=== PATIENT | female | born 1950 | race Caucasian/White ===

== ENCOUNTER 2020-08-02 07:52 | Outpatient (REF) | payer MEDICARE, SELFPAY ==
[2020-08-02 12:00] LABS: Alanine Aminotransferase 22 U/L (0-31); Albumin Level 4.2 g/dL (3.5-5.0); Alkaline Phosphatase 126 U/L (39-117); Anion Gap 13 (12-20); Aspartate Amino Transferase 18 U/L (5-31); Bilirubin Total 0.6 mg/dL (0.0-1.0); Blood Urea Nitrogen 25 mg/dL (9-16); Calcium 9.2 mg/dL (8.4-10.2); Carbon Dioxide 31 mmol/L (22-29); Chloride 103 mmol/L (96-108); Cholesterol 193 mg/dL; Estimated Glomerular Filt Rate 53; Glucose Fasting 93 mg/dL (60-99); HDL Cholesterol 70 mg/dL; LDL Cholesterol Calculated 109 mg/dl; Potassium 3.9 mmol/l (3.3-5.1); Sodium 143 mmol/L (135-145); Total Protein 7.1 g/dL (6.5-8.0); Triglycerides 72 mg/dL
== END 2020-08-02 07:53 | disposition home or self-care (01) ==
LOC: HO.HMGCLDS 07:52
PROVIDERS: PCP Internal Medicine; Visit Provider Internal Medicine
DX: E78.5 Hyperlipidemia, unspecified (principal); I10 Essential (primary) hypertension; I48.91 Unspecified atrial fibrillation; M54.5 Low back pain; G89.29 Other chronic pain
CPT/HCPCS: 80053; 80061

== ENCOUNTER → 2020-08-11 09:52 | Outpatient (REF) | payer MEDICARE, SELFPAY ==
--- NOTE | 2020-08-11 10:00 | ECG_ITS ---
Hook-up date: 2020-08-11 10:20:00 Duration: 47:59:00 Test Indications: PAF Medications: 132665 QRS complexes 125 Ventricular ectopics which represent <1 % of total QRS comp. 41 Supraventricular ectopics which represent <1 % of total QRS comp. * Paced QRS complexs which represent % of total QRS comp. VENTRICULAR ECTOPY 125 Isolated 0 Bigeminal Cycles 0 Couplets 0 Runs 0 Beats in Runs * Beats LONGEST at * BPM at :: -- * Beats FASTEST at * BPM at :: -- SUPRAVENTRICULAR ECTOPY 29 Isolated 2 Couplets 1 Runs 8 Beats in Runs 8 Beats LONGEST at 115 BPM at 16:59:16 2020-08-11 8 Beats FASTEST at 115 BPM at 16:59:16 2020-08-11 HEART RATES 56 MIN at 02:51:57 2020-08-12 74 AVG 104 MAX at 18:57:22 2020-08-11 LONGEST RR 1.0800 secs at 03:54:49 2020-08-12 S-T LEVELS Channel 1 - 128 mm at 10:20:00 2020-08-11 - 128 mm at 10:20:00 2020-08-11 Channel 2 - 128 mm at 10:20:00 2020-08-11 - 128 mm at 10:20:00 2020-08-11 Channel 3 - 128 mm at 02:93:91 -- - 128 mm at 02:93:91 Basic rhythm Normal sinus rhythm No long pause or profound bradycardia Occasional Premature ventricular complexes No sustained Atrial fibrillation Patient did not report any symptoms in the diary Referred By: Liang Larios Overread By: SCARLETT ROBLEDO MD
== END ==
LOC: HO.CARD 09:52
PROVIDERS: PCP Internal Medicine; Visit Provider Internal Medicine
DX: I48.0 Paroxysmal atrial fibrillation (principal)
CPT/HCPCS: 93225; 93226

== ENCOUNTER → 2020-08-24 08:48 | Outpatient (BNVA) | payer MEDICARE, SELFPAY | PROVIDERS: PCP Internal Medicine; Referring Provider Internal Medicine; Visit Provider Hospitalist | DX: J44.9 Chronic obstructive pulmonary disease, unspecified (principal); J96.11 Chronic respiratory failure with hypoxia; G47.33 Obstructive sleep apnea (adult) (pediatric); Z99.89 Dependence on other enabling machines and devices; Z99.81 Dependence on supplemental oxygen | CPT/HCPCS: 94618; 99212 ==

== ENCOUNTER 2020-09-19 06:44 | Outpatient (REF) | payer MEDICARE, SELFPAY ==
[2020-09-19 07:24] LABS: Hematocrit 39.2 % (37-47); Mean Corpuscular HGB Conc 33.2 g/dl (31.0-35.0); Mean Corpuscular Hemoglobin 32.3 pg (27.0-33.0); Mean Corpuscular Volume 97.5 fL (80-98); Mean Platelet Volume 9.3 fL (9.4-12.3); Platelet Count 344 X10*3/uL (160-400); Red Blood Count 4.02 X10*6/uL (4.20-5.50); White Blood Count 6.8 X10*3/uL (4.8-10.8)
[2020-09-19 07:51] LABS: Alanine Aminotransferase 36 U/L (0-31); Albumin Level 4.1 g/dL (3.5-5.0); Alkaline Phosphatase 194 U/L (39-117); Anion Gap 15 (12-20); Aspartate Amino Transferase 25 U/L (5-31); Bilirubin Total 0.6 mg/dL (0.0-1.0); Blood Urea Nitrogen 25 mg/dL (9-16); Calcium 9.3 mg/dL (8.4-10.2); Carbon Dioxide 28 mmol/L (22-29); Chloride 101 mmol/L (96-108); Cholesterol 199 mg/dL; Estimated Glomerular Filt Rate 52; Glucose Fasting 89 mg/dL (60-99); HDL Cholesterol 76 mg/dL; LDL Cholesterol Calculated 105 mg/dl; Potassium 4.1 mmol/l (3.3-5.1); Sodium 140 mmol/L (135-145); Triglycerides 92 mg/dL
[2020-09-19 08:13] LABS: Thyroid Stimulating Hormone 1.01 uIU/mL (0.32-4.0)
== END 2020-09-19 06:45 | disposition home or self-care (01) ==
LOC: HO.LAB 06:44
PROVIDERS: Visit Provider Internal Medicine
DX: I48.0 Paroxysmal atrial fibrillation (principal); E78.5 Hyperlipidemia, unspecified; I42.9 Cardiomyopathy, unspecified; R10.9 Unspecified abdominal pain; J41.0 Simple chronic bronchitis
CPT/HCPCS: 36415; 80053; 80061; 84443; 85027

== ENCOUNTER 2020-09-25 10:19 | Outpatient (REF) | payer MEDICARE, SELFPAY ==
--- NOTE | 2020-09-25 10:20 | CT_ITS ---
EXAMINATION: CT ABDOMEN AND PELVIS WITH CONTRAST CLINICAL INFORMATION: Abdominal pain COMPARISON: Previous CT of the abdomen and pelvis May 2014 TECHNIQUE: Multidetector volumetric images were obtained from the superior aspect of the liver through the pubic symphysis following administration 85 mL of Omnipaque 350 intravenous contrast. Sagittal and coronal reformatted images were obtained on the technologist's workstation. Oral contrast: Yes This CT examination was performed using dose optimization techniques as appropriate, variously including the following: *Automated exposure control *Adjustment of mA and/or kV according to patient size (this includes techniques or standardized protocols for targeted exams where dose is matched to indication/reason for exam; i.e. extremities or head) *Use of iterative reconstruction technique DLP: 705 mGy-cm FINDINGS: LUNG BASES: The visualized lung bases are unremarkable. LIVER, GALLBLADDER, AND BILIARY TREE: The liver is normal in size, shape, and attenuation. No focal hepatic lesion or biliary ductal dilatation is present. The gallbladder has been removed. PANCREAS: Unremarkable. SPLEEN: Unremarkable. ADRENAL GLANDS: There is a nodular contour of the left adrenal gland. This is similar to previous exam. KIDNEYS AND URETERS: The left kidney is a small. There are bilateral renal cysts. The kidneys are otherwise unremarkable. BLADDER: Unremarkable. GASTROINTESTINAL TRACT: There is diverticulosis of the colon. No evidence of diverticulitis is seen. There is a small duodenal diverticulum adjacent to the head of the pancreas. The appendix is unremarkable. The stomach is unremarkable. ABDOMINAL WALL: There is an infra umbilical hernia containing fat. LYMPH NODES: Normal. VASCULAR: There is a small aneurysm of the mid abdominal aorta measuring 3 x 3.7 cm in transverse and AP dimension. This is new or increased from previous exam from 2013. PELVIC VISCERA: Unremarkable. OSSEOUS STRUCTURES: There are degenerative changes of the spine. CT/CT abdomen pelvis w con IMPRESSION: Diverticulosis of the colon. No evidence of diverticulitis. Small left kidney. Small 3 x 3.7 cm abdominal aortic aneurysm new from May 2014 exam.
[2020-09-25] MEDS: iohexoL 350 MG/ML 100 ML INFUS..BTL IV (13:00)
[2020-09-25] MEDS: Barium Sulfate Oral (Vanilla) 450 ML ORAL.SUSP 900 ML PO (13:01)
== END 2020-09-25 10:20 | disposition home or self-care (01) ==
LOC: HO.CT 10:19
PROVIDERS: PCP Internal Medicine; Visit Provider Internal Medicine
DX: R10.9 Unspecified abdominal pain (principal)
CPT/HCPCS: 74177; Q9967

== ENCOUNTER → 2020-10-17 15:41 | Outpatient (BNVA) | payer MEDICARE, SELFPAY | PROVIDERS: PCP Internal Medicine; Visit Provider Nurse Practitioner | DX: Z13.89 Encounter for screening for other disorder (principal) | CPT/HCPCS: Q3014 ==

== ENCOUNTER → 2020-10-24 12:37 | Outpatient (BNVA) | payer MEDICARE, SELFPAY | PROVIDERS: PCP Internal Medicine; Visit Provider Internal Medicine | DX: I48.0 Paroxysmal atrial fibrillation (principal); I42.8 Other cardiomyopathies; J44.9 Chronic obstructive pulmonary disease, unspecified; G47.33 Obstructive sleep apnea (adult) (pediatric); Z79.01 Long term (current) use of anticoagulants; Z79.899 Other long term (current) drug therapy; Z99.89 Dependence on other enabling machines and devices | CPT/HCPCS: Q3014 ==

== ENCOUNTER → 2020-11-15 09:43 | Outpatient (BNVA) | payer MEDICARE, SELFPAY | PROVIDERS: PCP Internal Medicine; Visit Provider Nurse Practitioner | DX: K21.9 Gastro-esophageal reflux disease without esophagitis (principal); Z79.01 Long term (current) use of anticoagulants | CPT/HCPCS: Q3014 ==

== ENCOUNTER → 2020-11-24 09:45 | Outpatient (BNVA) | payer MEDICARE, SELFPAY | PROVIDERS: PCP Internal Medicine; Visit Provider Internal Medicine | DX: I48.0 Paroxysmal atrial fibrillation (principal); Z51.81 Encounter for therapeutic drug level monitoring; Z79.01 Long term (current) use of anticoagulants | CPT/HCPCS: 99211 ==

== ENCOUNTER 2020-12-04 12:14 | Outpatient (REF) | payer MEDICARE, SELFPAY ==
--- NOTE | ~2020-12-04 | XR_ITS ---
EXAMINATION: XR KNEE AP STANDING AND LATERAL VIEW STANDING CLINICAL INFORMATION: Bilateral AP knees standing. COMPARISON: None. TECHNIQUE: AP bilateral standing view of the knees was obtained. FINDINGS: AP bilateral standing views reveal a loss of medial compartment joint space both knees. The lateral compartment joint space is maintained normal. There are no loose bodies or bony erosive changes. Weightbearing lateral view right knee reveals maintained. Patellofemoral compartment joint space. Minimal anterior superior patellar enthesophyte are seen. No joint effusion. No loose bodies. Weightbearing lateral view left knee reveals small anterior-superior patellar enthesophytes. There are no loose bodies or joint effusion. XR/XR knee standing BI IMPRESSION: Degenerative changes medial compartment both knees. No loose bodies, bony erosive changes or joint effusion seen. There are minimal anterior suprapatellar enthesophytes both knees.
[2020-12-04 13:55] LABS: Hematocrit 41.9 % (37-47); Hemoglobin 13.6 g/dl (12.0-16.0); Mean Corpuscular HGB Conc 32.5 g/dl (31.0-35.0); Mean Corpuscular Hemoglobin 31.1 pg (27.0-33.0); Mean Corpuscular Volume 95.9 fL (80-98); Mean Platelet Volume 10.9 fL (9.4-12.3); Platelet Count 277 X10*3/uL (160-400); Red Blood Count 4.37 X10*6/uL (4.20-5.50); White Blood Count 8.1 X10*3/uL (4.8-10.8)
[2020-12-04 14:01] LABS: INTERNATIONAL NORM RATIO 1.4 (0.9-1.1); Prothrombin Time 16.7 SEC (10.8-13.0)
[2020-12-04 14:07] LABS: Glucose Urine UA NEG (NEG); Leukocyte Esterase Urine NEG (NEG); Nitrite Urine NEG (NEG); Urine Blood TRACE (NEG); Urine Ketones NEG (NEG); Urine Protein NEG (NEG-TRACE)
[2020-12-04 14:08] LABS: Appearance Urine CLEAR; Color Urine STRAW
[2020-12-04 14:28] LABS: Alanine Aminotransferase 18 U/L (0-31); Albumin Level 4.4 g/dL (3.5-5.0); Alkaline Phosphatase 135 U/L (39-117); Anion Gap 17 (12-20); Aspartate Amino Transferase 18 U/L (5-31); Bilirubin Total 0.7 mg/dL (0.0-1.0); Blood Urea Nitrogen 24 mg/dL (9-16); Calcium 9.6 mg/dL (8.4-10.2); Carbon Dioxide 32 mmol/L (22-29); Chloride 98 mmol/L (96-108); Cholesterol 213 mg/dL; Estimated Glomerular Filt Rate 54; Glucose Fasting 91 mg/dL (60-99); HDL Cholesterol 84 mg/dL; LDL Cholesterol Calculated 108 mg/dl; Potassium 3.7 mmol/L (3.3-5.1); Sodium 143 mmol/L (135-145); Total Protein 7.5 g/dL (6.5-8.0); Triglycerides 107 mg/dL
[2020-12-04 14:44] LABS: Erythrocyte Sedimentation Rate 75 MM/HR (0-20)
[2020-12-04 15:08] LABS: RBC Urine 0 /HPF (0); Renal Epithelial Cells Urine 1+ /LPF; Squamous Epithelial Cell Urine 1+ /LPF
== END 2020-12-04 12:15 | disposition home or self-care (01) ==
LOC: HO.HMGCLDS 12:14
PROVIDERS: Nurse Practitioner Family; PCP Internal Medicine; Visit Provider Internal Medicine
DX: M25.50 Pain in unspecified joint (principal); I42.8 Other cardiomyopathies; E66.01 Morbid (severe) obesity due to excess calories; E78.5 Hyperlipidemia, unspecified; I48.0 Paroxysmal atrial fibrillation; J41.0 Simple chronic bronchitis; Z79.01 Long term (current) use of anticoagulants
CPT/HCPCS: 36415; 73565; 80053; 80061; 81001; 85027; 85610; 85652; 86140

== ENCOUNTER 2020-12-12 12:21 | Outpatient (REF) | payer MEDICARE, SELFPAY ==
--- NOTE | ~2020-12-12 | XR_ITS ---
EXAMINATION: XR HAND, RIGHT XR HAND, LEFT CLINICAL INFORMATION: Bilateral pain COMPARISON: Radiographs left wrist 06/24/2018, radiographs right hand 03/29/2014. TECHNIQUE: Each hand is imaged in 3 views. There are a total of 6 views. FINDINGS: Right: There is mild osteopenia. No periarticular demineralization. No destructive process. The ulnar variance is neutral. The pronator quadratus fat pad is normal. There are degenerative changes at the triscaphe joint with joint narrowing and mild subchondral sclerosis. No visible erosive change. No chondrocalcinosis. The MCP joints are unremarkable. There is borderline narrowing DIP joints without erosive change. Left: There is mild osteopenia. No periarticular demineralization. No destructive process. The ulnar variance is neutral. The pronator quadratus fat pad is unremarkable. There are borderline degenerative changes triscaphe joint with mild joint narrowing. No erosive change. No chondrocalcinosis. The MCP joints are normal. There is borderline narrowing DIP joints without erosive change. XR/XR hand RT min 3V IMPRESSION: 1. Bilateral degenerative changes triscaphe joint, greater on right. 2. Otherwise carpus and MCP joints normal. 3. Mild bilateral narrowing DIP joints. 4. No erosive changes.
--- NOTE | ~2020-12-12 | XR_ITS ---
EXAMINATION: XR HAND, RIGHT XR HAND, LEFT CLINICAL INFORMATION: Bilateral pain COMPARISON: Radiographs left wrist 06/24/2018, radiographs right hand 03/29/2014. TECHNIQUE: Each hand is imaged in 3 views. There are a total of 6 views. FINDINGS: Right: There is mild osteopenia. No periarticular demineralization. No destructive process. The ulnar variance is neutral. The pronator quadratus fat pad is normal. There are degenerative changes at the triscaphe joint with joint narrowing and mild subchondral sclerosis. No visible erosive change. No chondrocalcinosis. The MCP joints are unremarkable. There is borderline narrowing DIP joints without erosive change. Left: There is mild osteopenia. No periarticular demineralization. No destructive process. The ulnar variance is neutral. The pronator quadratus fat pad is unremarkable. There are borderline degenerative changes triscaphe joint with mild joint narrowing. No erosive change. No chondrocalcinosis. The MCP joints are normal. There is borderline narrowing DIP joints without erosive change. XR/XR hand LT min 3V IMPRESSION: 1. Bilateral degenerative changes triscaphe joint, greater on right. 2. Otherwise carpus and MCP joints normal. 3. Mild bilateral narrowing DIP joints. 4. No erosive changes.
[2020-12-12 14:07] LABS: MANUAL DIFF FLAG NO
[2020-12-12 14:11] LABS: Basophils Percent Auto 0.4 % (0-2); Eosinophils Absolute Auto 0.2 X10*3/uL (0.0-0.4); Eosinophils Percent Auto 2.4 % (0-4); Hematocrit 39.7 % (37-47); Hemoglobin 12.8 g/dl (12.0-16.0); Imm Gran Abs Auto 0.04 X10*3/uL (0.00-0.03); Imm Gran Pct Auto 0.5 % (0.0-0.4); Lymphocytes Absolute Auto 1.8 X10*3/uL (1.2-4.9); Lymphocytes Percent Auto 20.7 % (20-40); Mean Corpuscular HGB Conc 32.2 g/dl (31.0-35.0); Mean Corpuscular Hemoglobin 31.3 pg (27.0-33.0); Mean Corpuscular Volume 97.1 fL (80-98); Mean Platelet Volume 9.4 fL (9.4-12.3); Monocytes Absolute Auto 0.6 X10*3/uL (0.1-1.2); Monocytes Percent Auto 6.9 % (2-11); Neutrophils Absolute Auto 5.9 X10*3/uL (2.0-8.3); Neutrophils Percent Auto 69.1 % (45-73); Platelet Count 338 X10*3/uL (160-400); Red Blood Count 4.09 X10*6/uL (4.20-5.50); Red Cell Distribution Width 13.1 % (11.0-16.0); White Blood Count 8.5 X10*3/uL (4.8-10.8)
[2020-12-12 14:49] LABS: Alanine Aminotransferase 20 U/L (0-31); Albumin Level 4.2 g/dL (3.5-5.0); Alkaline Phosphatase 136 U/L (39-117); Anion Gap 17 (12-20); Aspartate Amino Transferase 16 U/L (5-31); Bilirubin Total 0.6 mg/dL (0.0-1.0); Blood Urea Nitrogen 21 mg/dL (9-16); C Reactive Protein 1.25 mg/dL (< or = 0.50); Calcium 9.2 mg/dL (8.4-10.2); Carbon Dioxide 30 mmol/L (22-29); Chloride 100 mmol/L (96-108); Estimated Glomerular Filt Rate 51; Glucose Random 88 mg/dL (60-115); Potassium 3.6 mmol/L (3.3-5.1); Sodium 143 mmol/L (135-145)
[2020-12-12 14:58] LABS: Erythrocyte Sedimentation Rate 78 MM/HR (0-20); Rheumatoid Factor < 15.0 IU/mL (<15.0)
[2020-12-13 10:47] LABS: Antibody to SS-A Antigen <1.0 NEG AI (<1.0 NEG); Antibody to SS-B Antigen <1.0 NEG AI (<1.0 NEG)
[2020-12-13 11:37] LABS: Cyclic Citrullinated Peptide <16 UNITS
[2020-12-13 13:11] LABS: Anti Nuclear Antibody Screen NEGATIVE (NEGATIVE); IgA 438 mg/dL (70-320); IgG 894 mg/dL (600-1540); IgM 96 mg/dL (50-300)
[2020-12-13 21:27] LABS: Prot Elec - Albumin 3.8 g/dL (3.8-4.8); Prot Elec - Alpha1 0.4 g/dL (0.2-0.3); Prot Elec - Alpha2 0.9 g/dL (0.5-0.9); Prot Elec - Beta 1 0.5 g/dL (0.4-0.6); Prot Elec - Beta 2 0.5 g/dL (0.2-0.5); Prot Elec - Gamma 0.9 g/dL (0.8-1.7)
[2020-12-15 21:18] LABS: Vitamin D 25-OH, D2 9 ng/mL; Vitamin D 25-OH, D3 23 ng/mL; Vitamin D 25-OH, Total 32 ng/mL (30-100)
== END 2020-12-12 12:22 | disposition home or self-care (01) ==
LOC: HO.LAB 12:21
PROVIDERS: PCP Internal Medicine; Visit Provider Student in an Organized Health Care Education/Training Program
DX: M25.50 Pain in unspecified joint (principal); R79.82 Elevated C-reactive protein (CRP); I48.91 Unspecified atrial fibrillation; I42.9 Cardiomyopathy, unspecified
CPT/HCPCS: 36415; 73130; 80053; 82306; 82784; 84155; 84165; 85025; 85652; 86038; 86039; 86140; 86200; 86235; 86334; 86431; 99202

== ENCOUNTER → 2020-12-26 10:30 | Outpatient (BNVA) | payer MEDICARE, SELFPAY | PROVIDERS: PCP Internal Medicine; Visit Provider Student in an Organized Health Care Education/Training Program | DX: M35.3 Polymyalgia rheumatica (principal); M25.50 Pain in unspecified joint; Z79.52 Long term (current) use of systemic steroids | CPT/HCPCS: 99212 ==

== ENCOUNTER 2021-01-03 10:08 | Outpatient (REF) | payer MEDICARE, SELFPAY ==
--- NOTE | ~2021-01-03 | MM_ITS ---
EXAMINATION: BONE DENSITOMETRY CLINICAL INDICATION: Long-term, current, use of systemic steroids. COMPARISON: Baseline BD dated 07/26/2016. TECHNIQUE: Using a F2G DXA System (software version: 13.1) manufactured by [employer], dual-energy x-ray absorptiometry was performed of the lumbar spine and left hip. The images are of good technical quality. Summary results are attached. FINDINGS: AP SPINE L1-L4: Current: BMD 0.789 g/cm2, Z-score -2.7, T-score -3.3, osteoporosis, 3.8% decrease from baseline (<5% change is not significant). Baseline: BMD 0.820 g/cm2. LEFT FEMUR, NECK: Current: BMD 0.684 g/cm2, Z-score -1.5, T-score -2.5, osteoporosis. Baseline: BMD 0.745 g/cm2. LEFT FEMUR, TOTAL: Current: BMD 0.764 g/cm2, Z-score -1.2, T-score -1.9, osteopenia, 4.4% decrease from baseline (<5% change is not significant). Baseline: BMD 0.799 g/cm2. IDENTIFIED RISK FACTORS: Low calcium intake, family history (parental hip fracture), glucocorticoids (chronic), menopause. HISTORY OF FRACTURE: None listed. MEDICATIONS: None listed. MM/XR DEXA axial skeleton IMPRESSION: 1. DIAGNOSIS: Osteoporosis based on the lowest T-score value of -3.3 in the lumbar spine applying World Health Organization criteria. 2. 10-YEAR FRACTURE RISK PREDICTION, FRAX: Major osteoporotic fracture (clinical spine, forearm, hip or shoulder) 21.9%. Hip fracture 6.7%. 3. Treatment Recommendations: NOF guidelines recommend consideration for treatment in postmenopausal women and men age 50 and older presenting with the following: -A hip or vertebral (clinical or morphometric) fracture. -T-score less than or equal to -2.5 at the femoral neck or spine after appropriate evaluation to exclude secondary causes. -Low bone mass at the hip or spine and a 10-year fracture probability by FRAX of greater than or equal to 3% for hip fracture or greater than or equal to 20% for major osteoporotic fracture based on the [place] adapted WHO algorithm. 4. Other Recommendations: All treatment decisions require clinical judgment and consideration of individual patient factors, including patient preferences, comorbidities, previous drug use, risk factors not captured in the FRAX model (e.g. frailty, falls, vitamin D deficiency, increased bone turnover, interval significant decline in bone density) and possible under or overestimation of fracture risk by FRAX. Additional medical evaluation for secondary cause of low bone mineral density may be appropriate. FUTURE SCAN RECOMMENDATION: People with diagnosed cases of osteoporosis or at high risk for fracture should have regular bone mineral density tests. For patients eligible for Medicare, routine testing is allowed once every 2 years. The testing frequency can be increased to one year for patients who have rapidly progressing disease, those who are receiving or discontinuing medical therapy to restore bone mass, or have additional risk factors.
== END 2021-01-03 10:09 | disposition home or self-care (01) ==
LOC: HO.MAMMO 10:08
PROVIDERS: Visit Provider Student in an Organized Health Care Education/Training Program
DX: Z13.820 Encounter for screening for osteoporosis (principal); Z78.0 Asymptomatic menopausal state; Z79.52 Long term (current) use of systemic steroids
CPT/HCPCS: 77080

== ENCOUNTER → 2021-01-30 10:07 | Outpatient (BNVA) | payer MEDICARE, SELFPAY | PROVIDERS: Visit Provider Internal Medicine | DX: I48.0 Paroxysmal atrial fibrillation (principal); I42.8 Other cardiomyopathies; J41.0 Simple chronic bronchitis; G47.33 Obstructive sleep apnea (adult) (pediatric); J84.9 Interstitial pulmonary disease, unspecified; Z99.89 Dependence on other enabling machines and devices; Z51.81 Encounter for therapeutic drug level monitoring; Z79.899 Other long term (current) drug therapy | CPT/HCPCS: 93005; 99212 ==

== ENCOUNTER → 2021-02-06 10:18 | Outpatient (BNVA) | payer MEDICARE, SELFPAY | PROVIDERS: PCP Internal Medicine; Visit Provider Nurse Practitioner | DX: R10.9 Unspecified abdominal pain (principal); K21.9 Gastro-esophageal reflux disease without esophagitis; E66.01 Morbid (severe) obesity due to excess calories; Z68.41 Body mass index [BMI] 40.0-44.9, adult; Z71.3 Dietary counseling and surveillance | CPT/HCPCS: Q3014 ==

== ENCOUNTER 2021-02-08 10:49 | Outpatient (REF) | payer MEDICARE, SELFPAY ==
--- NOTE | ~2021-02-08 | CT_ITS ---
EXAMINATION: CT CHEST WITHOUT CONTRAST CLINICAL INFORMATION: Evaluate for interstitial lung disease COMPARISON: Previous CTA of the chest August 2019 TECHNIQUE: Multidetector volumetric CT imaging of the chest was done. Axial MIP volume rendering provided. Sagittal and coronal reformatted images were obtained. This CT examination was performed using dose optimization techniques as appropriate, variously including the following: *Automated exposure control *Adjustment of mA and/or kV according to patient size (this includes techniques or standardized protocols for targeted exams where dose is matched to indication/reason for exam; i.e. extremities or head) *Use of iterative reconstruction technique DLP: 230 mGy-cm FINDINGS: LUNGS: No evidence of interstitial lung disease. There is a scarring or chronic subsegmental atelectasis in the inferior segment of the lingula and medial segment of the right middle lobe. There is minimal linear scarring at the left lower lobe adjacent to the left pleural fissures axial image 78 series 11 that is stable. The lungs are otherwise clear. There is no evidence of air-trapping. MEDIASTINUM: Heart is upper normal in size. There is coronary artery calcification. There is calcification of the thoracic aorta. There is a small aneurysm of the anterior wall of the ascending thoracic aorta measuring 4 x 4.3 cm. This is best appreciated sagittal reconstructed image 55 probably not appreciably changed from 2019 exam. The aortic arch and descending thoracic aorta are upper normal in size.. There are no enlarged hilar or mediastinal lymph nodes. The visualized thyroid gland is unremarkable. PLEURA: There is no pleural effusion. No pleural mass or thickening. AXILLA: No lymphadenopathy. UPPER ABDOMEN: The gallbladder has been removed. There may be a duodenal diverticulum adjacent to the head of the pancreas. The left kidney appears smaller than the right. There is a 1.7 cm left renal cyst. There is a focal dilatation of the visualized infrarenal abdominal aorta. This measures 3 cm on most inferior images and is incompletely imaged. OSSEOUS STRUCTURES: There are degenerative changes of the spine. CT/CT chest wo con IMPRESSION: No evidence of interstitial lung disease. 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 Ascending thoracic aorta measures maximum 4.3 cm in AP dimension and is probably not appreciably changed from 2019 CTA. Dilatation of the visualized infrarenal abdominal aorta measuring at least 3 cm. This is incompletely imaged. Follow-up abdominal aortic ultrasound should be considered.
[2021-02-08 12:28] LABS: C Reactive Protein 0.72 mg/dL (< or = 0.50)
[2021-02-08 12:33] LABS: TSH reflex Free T4 0.27 uIU/mL (0.32-4.0)
[2021-02-08 12:49] LABS: Erythrocyte Sedimentation Rate 44 MM/HR (0-20)
[2021-02-08 13:05] LABS: Free T4 (Free Thyroxine) 1.28 ng/dL (0.71-1.85)
== END 2021-02-08 10:50 | disposition home or self-care (01) ==
LOC: HO.CT 10:49
PROVIDERS: Student in an Organized Health Care Education/Training Program; PCP Internal Medicine; Visit Provider Internal Medicine
DX: J84.9 Interstitial pulmonary disease, unspecified (principal); M35.3 Polymyalgia rheumatica; I48.0 Paroxysmal atrial fibrillation; Z79.899 Other long term (current) drug therapy
CPT/HCPCS: 36415; 71250; 84439; 84443; 85652; 86140

== ENCOUNTER 2021-02-20 08:53 | Outpatient (REF) | payer MEDICARE, SELFPAY ==
--- NOTE | ~2021-02-20 | US_ITS ---
EXAMINATION: US ABDOMINAL AORTA CLINICAL INFORMATION: This is a 70-year-old female with abdominal aortic aneurysm. COMPARISON: Comparison is made to a CT scan of the abdomen dated 09/25/2020 which measured the abdominal aortic aneurysm at 3.0 x 3.7 cm. TECHNIQUE: Grayscale, color Doppler and spectral Doppler evaluation of the abdominal aorta. FINDINGS: There is aneurysmal dilatation of the mid abdominal aorta measuring 3.8 x 4.1 cm. The measurements of the aorta in maximum AP and transverse dimensions respectively are as follows: PROXIMAL: 3.0 x 3.1 cm. MID: 3.8 x 4.1 cm. DISTAL: 2.3 x 2.7 cm. The velocity measures 49 cm/s. The measurements of the common iliac arteries in maximum AP dimension are as follows: RIGHT COMMON ILIAC ARTERY: 1.5 x 1.7 cm. LEFT COMMON ILIAC ARTERY: 1.4 x 1.6 cm. US/US abdominal aortic aneurysm IMPRESSION: 1. There is a 3.8 x 4.1 cm abdominal aortic aneurysm. A direct comparison to the previous CT scan is difficult because of the differences in the technique. However, the current ultrasound suggests that the aneurysm has increased in size.
== END 2021-02-20 08:54 | disposition home or self-care (01) ==
LOC: HO.HMGCX 08:53
PROVIDERS: PCP Internal Medicine; Visit Provider Internal Medicine
DX: I71.4 Abdominal aortic aneurysm, without rupture (principal)
CPT/HCPCS: 76706

== ENCOUNTER → 2021-02-27 15:03 | Outpatient (BNVA) | payer MEDICARE, SELFPAY | PROVIDERS: Visit Provider Student in an Organized Health Care Education/Training Program | DX: M35.3 Polymyalgia rheumatica (principal); M81.0 Age-related osteoporosis without current pathological fracture; Z79.52 Long term (current) use of systemic steroids | CPT/HCPCS: 96372; 99212; J0897 ==

== ENCOUNTER → 2021-03-02 09:53 | Outpatient (BNVA) | payer MEDICARE, SELFPAY | PROVIDERS: PCP Internal Medicine; Visit Provider Student in an Organized Health Care Education/Training Program ==

== ENCOUNTER 2021-04-03 10:05 | Outpatient (REF) | payer MEDICARE, SELFPAY ==
[2021-04-03 13:10] LABS: Erythrocyte Sedimentation Rate 45 MM/HR (0-20)
[2021-04-03 13:38] LABS: Alanine Aminotransferase 22 U/L (0-31); Alkaline Phosphatase 104 U/L (39-117); Anion Gap 15 (12-20); Aspartate Amino Transferase 17 U/L (5-31); Bilirubin Total 0.8 mg/dL (0.0-1.0); Blood Urea Nitrogen 28 mg/dL (9-16); C Reactive Protein 1.38 mg/dL (< or = 0.50); Calcium 9.7 mg/dL (8.4-10.2); Carbon Dioxide 30 mmol/L (22-29); Chloride 102 mmol/L (96-108); Estimated Glomerular Filt Rate 47; Glucose Random 117 mg/dL (60-115); Potassium 3.4 mmol/L (3.3-5.1); Sodium 144 mmol/L (135-145); Total Protein 6.6 g/dL (6.5-8.0)
[2021-04-07 13:22] LABS: Vitamin D 25-OH, D2 10 ng/mL; Vitamin D 25-OH, D3 20 ng/mL; Vitamin D 25-OH, Total 30 ng/mL (30-100)
== END 2021-04-03 10:06 | disposition home or self-care (01) ==
LOC: HO.HMGCLDS 10:05
PROVIDERS: Student in an Organized Health Care Education/Training Program; PCP Internal Medicine; Visit Provider Physician Assistant Medical
DX: M81.0 Age-related osteoporosis without current pathological fracture (principal); M35.3 Polymyalgia rheumatica
CPT/HCPCS: 36415; 80053; 82306; 85652; 86140

== ENCOUNTER → 2021-04-18 08:53 | Outpatient (BNVA) | payer MEDICARE, SELFPAY | PROVIDERS: PCP Internal Medicine; Visit Provider Hospitalist | DX: G47.33 Obstructive sleep apnea (adult) (pediatric) (principal); J41.0 Simple chronic bronchitis; J96.11 Chronic respiratory failure with hypoxia; Z79.52 Long term (current) use of systemic steroids; Z99.89 Dependence on other enabling machines and devices | CPT/HCPCS: 99212 ==

== ENCOUNTER 2021-04-22 07:45 | Emergency (ER) | payer MEDICARE, SELFPAY ==
--- NOTE | ~2021-04-22 | XR_ITS ---
EXAMINATION: CR CHEST CLINICAL INFORMATION: Chest pain. Shortness of breath. COMPARISON: Chest x-ray dated 09/21/2019. CT scan of the chest dated 02/08/2021. TECHNIQUE: 2 views of the chest were obtained. FINDINGS: EKG leads overlie the chest. The cardiomediastinal silhouette is enlarged. There is a anterior bulge in the ascending aorta, corresponding to the focal aneurysmal dilatation of the ascending aorta seen on the CT scan. Calcification and tortuosity of the aorta is seen. Lungs bilaterally are symmetrically hypoexpanded with linear atelectasis at the lung bases bilaterally. There is diffuse mild thickening of the central airways. No focal consolidation, effusion or pneumothorax is seen. Multilevel mild vertebral spondylosis in the thoracolumbar spine. XR/XR chest 2V IMPRESSION: 1. Mild diffuse thickening of the central airways, perhaps a reflection of subtle small airways disease or bronchitis. No focal pneumonia. 2. Mild bibasilar subsegmental atelectasis. 3. Ascending aortic aneurysm again noted, less well visualized but appearing similar to the contour seen on recent CT scan of the chest.
[2021-04-22 07:52] VITALS: BP 145/86; BP 172/0; PULSE 103; PULSE 115; RESP 16; TEMP 36.8; O2SAT 92; O2SAT 94; BMI 44.1
--- NOTE | 2021-04-22 08:17 | ECG_ITS ---
Test Reason : SOB Blood Pressure : / mmHG Vent. Rate : 107 BPM Atrial Rate : 107 BPM P-R Int : 182 ms QRS Dur : 074 ms QT Int : 344 ms P-R-T Axes : 064 080 039 degrees QTc Int : 459 ms Sinus tachycardia Otherwise normal ECG When compared to the previous EKG of No significant changes seen Referred By: Kaur Corley Electronically Signed By:Ramirez Corbett
--- NOTE | 2021-04-22 08:18 | ED_ITS ---
HPI - Chest Pain General Chief Complaint: Chest Pain Stated Complaint: chest pain Time Seen by Provider: 04/22/21 08:01 Source: patient and EMS Mode of arrival: EMS Limitations: no limitations History of Present Illness HPI narrative: 70 yo female with past medical history of osteoporosis, polymalgia rheumatica on chronic pred, NICM, obesity, GERD, HLD, afib on eliquis, COPD on 2.5-3LNC, CHRISTIANO on CPAP nightly here with complaints of an episode of chest pain which occurred at 06:45 this morning while the patient was sitting at her dining room table. She describes as a very sharp pain which lasted for approximately 45 minutes. No associated nausea, diaphoresis, shortness of breath from baseline, palpitations or dizziness. EMS gave her 324 mg of aspirin and after approximately 45 minutes the pain resolved. Patient is complaining of increasing shortness of breath over the last 48 hours. She does have a history of COPD and is on 3 L of oxygen daily. She was seen by her atmospheric technician April 18 and she tells me her prednisone was decreased from 10 mg to 7.5 mg daily, DuoNeb decreased to 2-3 times daily from 4 times daily. she tells me that she normally is own about 2 L of oxygen to 2.5 L of oxygen but over the last few days she has increased to 3 L of oxygen. She does have chronic lower extremity swelling which she tells me since decreasing her prednisone dose, increasing diuretic dose x 3 days this has improved. She also is complaining of muscle cramping in her legs for the last few weeks to months and she tells me after mentioning this to her atmospheric technician he increased her baclofen dose, started potassium replacement but she does not think this is helping. No fevers, chills. Did receive COVID vaccine. complaint: chest pain Related Data Home Medications Medication Instructions Recorded Confirmed budesonide 0.5 mg/2 mL suspension 0.5 mg INHALATION DAILY 08/24/20 04/18/21 for nebulization cetirizine 10 mg tablet 10 mg PO DAILY PRN 11/15/20 04/18/21 acetaminophen 650 mg 1,300 mg PO BEDTIME tab 12/12/20 04/18/21 tablet,extended release Previous Rx's Medication Instructions Recorded gabapentin 800 mg tablet 800 mg PO BID #180 tab 11/07/20 furosemide 40 mg tablet 40 mg PO DAILY #180 tab 12/04/20 diltiazem HCl 180 mg 180 mg PO DAILY 90 Days #90 cap 01/31/21 capsule,extended release 24 hr denosumab 60 mg/mL subcutaneous 60 mg SUBCUT [id number] #1 ml 02/27/21 syringe omeprazole 20 mg capsule,delayed 20 mg PO DAILY #90 cap 03/02/21 release ipratropium 0.5 mg-albuterol 3 mg 3 ml INHALATION BID #180 ml 03/20/21 (2.5 mg base)/3 mL nebulization soln amiodarone 200 mg tablet 100 mg PO .COMPLEX #36 tab 04/17/21 apixaban 5 mg tablet 5 mg PO BID #180 tab 04/17/21 prednisone 10 mg tablet 10 mg PO DAILY #30 tab 04/17/21 tramadol 50 mg tablet 50 mg PO DAILY #30 tab 04/17/21 baclofen 10 mg tablet 20 mg PO TID 30 Days #180 tab 04/18/21 potassium chloride 20 mEq 20 meq PO DAILY #90 tab 04/18/21 tablet,extended release prednisone 5 mg tablet 10 mg PO DAILY 30 Days #60 tab 04/18/21 atorvastatin 40 mg tablet 40 mg PO DAILY #90 tab 04/19/21 Allergies Allergy/AdvReac Type Severity Reaction Status Date / Time latex [LATEX] Allergy Intermediate RASH Verified 04/18/21 09:03 varenicline [From Chantix] Allergy Mild hives Verified 04/18/21 09:03 barium sulfate AdvReac Mild burn on Verified 04/18/21 09:03 face nicotine AdvReac Mild rash Verified 04/18/21 09:03 lisinopril AdvReac cough Verified 04/18/21 09:03 seasonal Allergy Mild seasonal Uncoded 01/30/21 10:24 allergies ACEI AdvReac Intermediate cough Uncoded 01/30/21 10:24 Review of Systems Review of Systems: Yes all other systems are reviewed and are negative Constitutional: Constitutional: Reports no additional constitutional complaints, Denies body ache(s), Denies chills, Denies fever(s), Denies headach e(s) and Denies weakness Eyes: Eyes: Reports no additional eye complaints and Denies change in vision ENT: Reports system reviewed and no additional complaints, except as documented, Denies dizziness, Denies headache(s), Denies nasal congestion, Denies nasal discharge and Denies neck pain Cardiovascular: Cardiovascular: Reports no additional cardiovascular complaints, Reports chest pain, Reports leg edema and Reports dyspnea Respiratory: Respiratory: Reports no additional respiratory complaints, Reports cough and Reports dyspnea Gastrointestinal: Gastrointestinal: Reports no additional gastrointestinal complaints, Denies abdominal pain, Denies diarrhea, Denies nausea and Denies vomiting Genitourinary: Genitourinary: Reports no additional female genitourinary com plaints and Denies urinary incontinence Musculoskeletal: Musculoskeletal: Reports no additional musculoskeletal complaints, Denies back pain, Denies arthralgias, Denies joint swelling, Reports muscle cramps, Denies neck pain, Denies numbness and Denies tingling Integumentary/Breasts: Skin/Breast: Reports system reviewed and no additional complaints, except as docu and Denies rash Neurologic: Reports system reviewed and no additional complaints, except as documented, Denies Abnormal speech present, Denies dizziness, Denies headache(s), Denies numbness, Denies tingling and Denies weakness PMFSH Past Medical History Attestation statement: The following information was validated with the patient. Source: old records reviewed and nursing notes reviewed Medical History Abdominal pain Arthralgia Arthropathy of cervical spine Cardiomyopathy Chronic respiratory failure COPD (chronic obstructive pulmonary disease) Hyperlipidemia NICM (nonischemic cardiomyopathy) CHRISTIANO on CPAP Paroxysmal A-fib Surgical History History of bilateral cataract extraction History of esophagogastroduodenoscopy (EGD) Hx of cholecystectomy Hx of dilation and curettage Hx of hysterectomy Trigger finger of thumb Family History Family History Father CHF (congestive heart failure) PNA (pneumonia) Dementia Diabetes HTN (hypertension) Family history of diabetes mellitus Mother CHF (congestive heart failure) MRSA (methicillin resistant Staphylococcus aureus) Son Afib Son Psoriasis Arthritis Daughter Hypothyroid Fibromyalgia Brother No problems noted. Brother No problems noted. Sister No problems noted. Social History Social History Alcohol intake: never Patient Tobacco Use Status: Never used Tobacco Years Smoked: 50+ years Use of substances other than those prescribed or required for medical reasons: No Substance Use Type: Marijuana Advance Directives: No Advance Directives Information Provided: No Physical Exam Vital Signs: Vital Signs: Last Vital Signs Temp 97.9 F 04/22/21 08:29 Pulse 96 04/22/21 11:01 Resp 17 04/22/21 11:01 BP 152/73 H 04/22/21 11:01 Pulse Ox 95 04/22/21 11:01 Oxygen Flow Rate 3 04/22/21 07:52 Body Mass Index 44.1 Const: General: cooperative, healthy appearing, comfortable and no acute distress Orientation/consciousness: patient oriented x3 Limitations: no limitations HENMT: Head: Yes normal to inspection Ears: hearing grossly normal bilaterally General nose exam: Normal external nose present Face and sinus: Yes normal facial exam Mouth: Normal oral and palatal mucosa present Throat: Yes posterior oropharynx normal Eyes: General: appearance normal, both eyes and all related structures Pupils: Equal, round and reactive pupils present Neck: Neck: Yes normal visual inspection Chest: Chest palpation & inspection: normal inspection of the chest Resp: Other: Speaking short phrases Mild exp wheezing, frequent coarse cough noted Cardio: Rate: regular rate Rhythm: regular rhythm Peripheral pulses: Peripheral pulses 2+ throughout GI: Inspection: Yes normal to inspection Palpation (GI): Soft to palpation and nontender Auscultation: normal bowel sounds Back/Spine/Pelvis: Thoracic/Lumbar Spine: thoracic and lumbar spine normal to inspection Skin: General skin exam: no rashes or lesions noted Neuro: General: patient oriented x3, no focal motor deficits and normal sensation to monofilament Cranial nerves: Yes Equal, round and reactive pupils present Cognition (Neuro): normal cognition Speech: No Abnormal speech present Gait exam (Neuro): Normal gait present Motor exam (neuro): 5/5 motor strength present throughout Extrem: General: No calf tenderness and Yes edema (2 non pitting edema bilaterally ) Course Course Course Narrative: 70 yo female with an extensive medical history here with complaints of episode of chest pain which began at 06:45 this morning and lasted for approximately 45 minutes. On arrival to the emergency department she is telling me her chest pain is resolved. She did receive aspirin prior to arrival. She is complaining of acute on chronic shortness of breath with cough and has underlying COPD and is oxygen dependent. Contributes this to change in nebulizer frequency/dosage, prednisone decrease. Will check labs, EKG, CXR, COVID screen. Give duoneb and re-assess. - Initial labs show an indeterminate troponin. plan for repeat 3 hour. Mildly hypercarbic which is likely secondary to chronic respiratory failure from COPD. Plan for VBG with repeat troponin. CXR shows 1. Mild diffuse thickening of the central airways, perhaps a reflection of subtle small airways disease or bronchitis. No focal pneumonia. 2. Mild bibasilar subsegmental atelectasis. 3. Ascending aortic aneurysm again noted, less well visualized but appearing similar to the contour seen on recent CT scan of the chest. Discussed findings with patient. Plan for repeat labs at 1145. If unremarkable with ambulate with pulse ox. SOB/cough likely secondary to change in nebulizer dose, decrease in prednisone dose and could consider placing patient back on her previous dose. 1200-VBG c/w very mild metabolic alkalosis likely chronic. No hypercarbia. A&Ox4. Trop x2 delta. 1245- Patient ambulate to the bathroom on her baseline oxygen with no desaturation or tachypnea from baseline. We discussed that she should increase her prednisone back to 10 mg daily as well as her original schedule of nebulizers. Follow up in the morning with pulmonology as needed. reviewed worrisome signs and symptoms of when to return to the emergency department. Comfortable discharge home. MDM - Chest Pain MDM Narrative Medical decision making narrative: acs, pna, copd exacerbation Medical Records Data Attestation: I reviewed the patient's medical records. Lab Data Attestation: I reviewed the patient's lab results. Result diagrams: 04/22/21 08:46 04/22/21 09:23 Labs: Lab Results 04/22/21 04/22/21 04/22/21 Range/Units 08:44 08:46 08:46 WBC 10.9 H (4.8-10.8) X10*3/uL RBC 4.10 L (4.20-5.50) X10*6/uL Hgb 13.0 (12.0-16.0) g/dl Hct 40.1 (37-47) % MCV 97.8 (80-98) fL MCH 31.7 (27.0-33.0) pg MCHC 32.4 (31.0-35.0) g/dl RDW 13.0 (11.0-16.0) % Plt Count 389 (160-400) X10*3/uL MPV 9.2 L (9.4-12.3) fL Immature Gran % (Auto) 0.8 H (0.0-0.4) % Neut % (Auto) 82.2 H (45-73) % Lymph % (Auto) 8.1 L (20-40) % [place] % (Auto) 7.5 (2-11) % Eos % (Auto) 1.1 (0-4) % Baso % (Auto) 0.3 (0-2) % Lymph # (Auto) 0.9 L (1.2-4.9) X10*3/uL [place] # (Auto) 0.8 (0.1-1.2) X10*3/uL Eos # (Auto) 0.1 (0.0-0.4) X10*3/uL Baso # (Auto) 0.0 (0.0-0.2) X10*3/uL Abs Immat Gran (auto) 0.09 H (0.00-0.03) X10*3/uL Absolute Neuts (auto) 8.9 H (2.0-8.3) X10*3/uL Absolute Nucleated RBC 0.000 (0.0-0.012) X10*3/uL Nucleated RBC % (auto) 0.0 (0.0-0.2) /100WBC PT (10.8-13.0) SEC INR (0.9-1.1) VBG pH (7.32-7.43) VBG pCO2 mmHg VBG pO2 mmHg VBG HCO3 (22-26) mmol/L VBG O2 Saturation % VBG Base Excess mmol/L Sodium (135-145) mmol/L Potassium (3.3-5.1) mmol/L Chloride (96-108) mmol/L Carbon Dioxide (22-29) mmol/L Anion Gap (12-20) BUN (9-16) mg/dL Creatinine (0.5-1.4) mg/dL Estim Creat Clear Calc Estimated GFR Random Glucose (60-115) mg/dL Lactic Acid 1.1 (0.5-2.0) mmol/L Calcium (8.4-10.2) mg/dL Magnesium 2.0 (1.6-2.6) mg/dL Total Bilirubin (0.0-1.0) mg/dL Direct Bilirubin (0.0-0.5) mg/dL AST (5-31) U/L ALT (0-31) U/L Alkaline Phosphatase (39-117) U/L Troponin I High Sens (<3.5-17.0) ng/L B-Natriuretic Peptide (<100) pg/mL Total Protein (6.5-8.0) g/dL Albumin (3.5-5.0) g/dL COVID-19 ([facility]) (Negative) COVID-19 Clin Com 04/22/21 04/22/21 04/22/21 Range/Units 08:46 08:48 09:23 WBC (4.8-10.8) X10*3/uL RBC (4.20-5.50) X10*6/uL Hgb (12.0-16.0) g/dl Hct (37-47) % MCV (80-98) fL MCH (27.0-33.0) pg MCHC (31.0-35.0) g/dl RDW (11.0-16.0) % Plt Count (160-400) X10*3/uL MPV (9.4-12.3) fL Immature Gran % (Auto) (0.0-0.4) % Neut % (Auto) (45-73) % Lymph % (Auto) (20-40) % [place] % (Auto) (2-11) % Eos % (Auto) (0-4) % Baso % (Auto) (0-2) % Lymph # (Auto) (1.2-4.9) X10*3/uL [place] # (Auto) (0.1-1.2) X10*3/uL Eos # (Auto) (0.0-0.4) X10*3/uL Baso # (Auto) (0.0-0.2) X10*3/uL Abs Immat Gran (auto) (0.00-0.03) X10*3/uL Absolute Neuts (auto) (2.0-8.3) X10*3/uL Absolute Nucleated RBC (0.0-0.012) X10*3/uL Nucleated RBC % (auto) (0.0-0.2) /100WBC PT (10.8-13.0) SEC INR (0.9-1.1) VBG pH (7.32-7.43) VBG pCO2 mmHg VBG pO2 mmHg VBG HCO3 (22-26) mmol/L VBG O2 Saturation % VBG Base Excess mmol/L Sodium 146 H (135-145) mmol/L Potassium 3.9 (3.3-5.1) mmol/L Chloride 98 (96-108) mmol/L Carbon Dioxide 36 H (22-29) mmol/L Anion Gap 16 (12-20) BUN 19 H (9-16) mg/dL Creatinine 1.00 (0.5-1.4) mg/dL Estim Creat Clear Calc 63.8 Estimated GFR 55 Random Glucose 118 H (60-115) mg/dL Lactic Acid (0.5-2.0) mmol/L Calcium 9.7 (8.4-10.2) mg/dL Magnesium (1.6-2.6) mg/dL Total Bilirubin 0.5 (0.0-1.0) mg/dL Direct Bilirubin 0.3 (0.0-0.5) mg/dL AST 20 (5-31) U/L ALT 36 H (0-31) U/L Alkaline Phosphatase 85 (39-117) U/L Troponin I High Sens 8.0 (<3.5-17.0) ng/L B-Natriuretic Peptide 40 (<100) pg/mL Total Protein 6.7 (6.5-8.0) g/dL Albumin 3.8 (3.5-5.0) g/dL COVID-19 ([facility]) Negative (Negative) COVID-19 Clin Com See Note 04/22/21 04/22/21 04/22/21 Range/Units 09:23 11:42 11:45 WBC (4.8-10.8) X10*3/uL RBC (4.20-5.50) X10*6/uL Hgb (12.0-16.0) g/dl Hct (37-47) % MCV (80-98) fL MCH (27.0-33.0) pg MCHC (31.0-35.0) g/dl RDW (11.0-16.0) % Plt Count (160-400) X10*3/uL MPV (9.4-12.3) fL Immature Gran % (Auto) (0.0-0.4) % Neut % (Auto) (45-73) % Lymph % (Auto) (20-40) % [place] % (Auto) (2-11) % Eos % (Auto) (0-4) % Baso % (Auto) (0-2) % Lymph # (Auto) (1.2-4.9) X10*3/uL [place] # (Auto) (0.1-1.2) X10*3/uL Eos # (Auto) (0.0-0.4) X10*3/uL Baso # (Auto) (0.0-0.2) X10*3/uL Abs Immat Gran (auto) (0.00-0.03) X10*3/uL Absolute Neuts (auto) (2.0-8.3) X10*3/uL Absolute Nucleated RBC (0.0-0.012) X10*3/uL Nucleated RBC % (auto) (0.0-0.2) /100WBC PT 15.6 H (10.8-13.0) SEC INR 1.3 H (0.9-1.1) VBG pH 7.47 H (7.32-7.43) VBG pCO2 58 mmHg VBG pO2 46 mmHg VBG HCO3 42 H (22-26) mmol/L VBG O2 Saturation 71.0 % VBG Base Excess 16.1 mmol/L Sodium (135-145) mmol/L Potassium (3.3-5.1) mmol/L Chloride (96-108) mmol/L Carbon Dioxide (22-29) mmol/L Anion Gap (12-20) BUN (9-16) mg/dL Creatinine (0.5-1.4) mg/dL Estim Creat Clear Calc Estimated GFR Random Glucose (60-115) mg/dL Lactic Acid (0.5-2.0) mmol/L Calcium (8.4-10.2) mg/dL Magnesium (1.6-2.6) mg/dL Total Bilirubin (0.0-1.0) mg/dL Direct Bilirubin (0.0-0.5) mg/dL AST (5-31) U/L ALT (0-31) U/L Alkaline Phosphatase (39-117) U/L Troponin I High Sens 8.4 (<3.5-17.0) ng/L B-Natriuretic Peptide (<100) pg/mL Total Protein (6.5-8.0) g/dL Albumin (3.5-5.0) g/dL COVID-19 (QUYEN) (Negative) COVID-19 Clin Com Imaging Data Chest x-ray: Attestation: I personally reviewed and interpreted this imaging study as follows: Radiologist's impression: 1. Mild diffuse thickening of the central airways, perhaps a reflection of subtle small airways disease or bronchitis. No focal pneumonia. 2. Mild bibasilar subsegmental atelectasis. 3. Ascending aortic aneurysm again noted, less well visualized but appearing similar to the contour seen on recent CT scan of the chest. ECG Data ECG #1: Attestation: I personally reviewed and interpreted this ECG as follows: ECG interpretation date: 04/22/21 ECG interpretation time: 07:55 Interpretation: ST with rate 107, normal pr, normal qrs, normal qtc, ST depressions [id number] Discharge Plan Discharge Clinical Impression: COPD (chronic obstructive pulmonary disease) Patient Disposition: Home, Self-Care Instructions: COPD (Chronic Obstructive Pulmonary Disease) (ED) Additional Instructions: Increase your prednisone back to 10mg daily Increase your nebulizers back to full ampules Return for increasing shortness of breath if you feel that you need to stay Follow-up with pulmonology Prescriptions: No Action gabapentin 800 mg tablet 800 mg PO BID Qty: 180 RF: 3 diltiazem HCl 180 mg capsule,extended release 24hr 180 mg PO DAILY 90 Days Qty: 90 RF: 4 omeprazole 20 mg capsule,delayed release(DR/EC) 20 mg PO DAILY Qty: 90 RF: 3 ipratropium-albuterol 0.5 mg-3 mg(2.5 mg base)/3 mL solution for nebulization 3 ml inhalation BID Qty: 180 RF: 11 apixaban [Eliquis] 5 mg tablet 5 mg PO BID Qty: 180 RF: 3 amiodarone 200 mg tablet 100 mg PO .COMPLEX Qty: 36 RF: 1 prednisone 10 mg tablet 10 mg PO DAILY Qty: 30 RF: 2 tramadol 50 mg tablet 50 mg PO DAILY Qty: 30 RF: 5 potassium chloride 20 mEq tablet extended release 20 meq PO DAILY Qty: 90 RF: 0 atorvastatin 40 mg tablet 40 mg PO DAILY Qty: 90 RF: 3 furosemide [Lasix] 40 mg tablet 40 mg PO DAILY Qty: 180 RF: 2 Prolia 60 mg/mL syringe 60 mg subcut [id number] Qty: 1 RF: 1 baclofen 10 mg tablet 20 mg PO TID 30 Days Qty: 180 RF: 3 prednisone 5 mg tablet 10 mg PO DAILY 30 Days Qty: 60 RF: 5 budesonide 0.5 mg/2 mL suspension for nebulization 0.5 mg inhalation DAILY RF: 0 cetirizine [Allergy Relief (cetirizine)] 10 mg tablet 10 mg PO DAILY PRNRF: 0 acetaminophen [Tylenol Arthritis Pain] 650 mg tablet extended release 1,300 mg PO BEDTIME RF: 0 Referrals: Jero Corona MD [Physician] - 2 days Interventions: ED Discharge Assessment Last Done: 04/22/21 13:18 Discharge Date/Time: 04/22/21 13:19
[2021-04-22 08:29] VITALS: BP 134/76; PULSE 93; RESP 20; TEMP 36.6; O2SAT 95
[2021-04-22 09:02] LABS: Basophils Percent Auto 0.3 % (0-2); Eosinophils Absolute Auto 0.1 X10*3/uL (0.0-0.4); Eosinophils Percent Auto 1.1 % (0-4); Hematocrit 40.1 % (37-47); Imm Gran Abs Auto 0.09 X10*3/uL (0.00-0.03); Imm Gran Pct Auto 0.8 % (0.0-0.4); Lymphocytes Absolute Auto 0.9 X10*3/uL (1.2-4.9); Lymphocytes Percent Auto 8.1 % (20-40); MANUAL DIFF FLAG NO; Mean Corpuscular HGB Conc 32.4 g/dl (31.0-35.0); Mean Corpuscular Hemoglobin 31.7 pg (27.0-33.0); Mean Corpuscular Volume 97.8 fL (80-98); Mean Platelet Volume 9.2 fL (9.4-12.3); Monocytes Absolute Auto 0.8 X10*3/uL (0.1-1.2); Monocytes Percent Auto 7.5 % (2-11); Neutrophils Absolute Auto 8.9 X10*3/uL (2.0-8.3); Neutrophils Percent Auto 82.2 % (45-73); Platelet Count 389 X10*3/uL (160-400); White Blood Count 10.9 X10*3/uL (4.8-10.8)
[2021-04-22 09:04] VITALS: PULSE 106; O2SAT 94
[2021-04-22] MEDS: Albuterol/Iprat 2.5/0.5MG 3 ML AMPUL.NEB INHALE (09:04)
[2021-04-22 09:11] VITALS: PULSE 106
[2021-04-22 09:18] LABS: COVID-19 Test Negative (Negative)
[2021-04-22 09:24] LABS: Lactic Acid 1.1 mmol/L (0.5-2.0)
[2021-04-22 09:29] LABS: B Type Natriuretic Peptide 40 pg/mL (<100)
[2021-04-22 10:08] LABS: INTERNATIONAL NORM RATIO 1.3 (0.9-1.1); Prothrombin Time 15.6 SEC (10.8-13.0)
[2021-04-22 10:35] LABS: Alanine Aminotransferase 36 U/L (0-31); Albumin Level 3.8 g/dL (3.5-5.0); Alkaline Phosphatase 85 U/L (39-117); Anion Gap 16 (12-20); Aspartate Amino Transferase 20 U/L (5-31); Bilirubin Direct 0.3 mg/dL (0.0-0.5); Bilirubin Total 0.5 mg/dL (0.0-1.0); Blood Urea Nitrogen 19 mg/dL (9-16); Calcium 9.7 mg/dL (8.4-10.2); Carbon Dioxide 36 mmol/L (22-29); Chloride 98 mmol/L (96-108); Creatinine Clr Calc Pharmacy 63.8; Estimated Glomerular Filt Rate 55; Glucose Random 118 mg/dL (60-115); Potassium 3.9 mmol/L (3.3-5.1); Sodium 146 mmol/L (135-145); Total Protein 6.7 g/dL (6.5-8.0)
[2021-04-22 11:01] VITALS: BP 152/73; PULSE 96; RESP 17; O2SAT 95
[2021-04-22] MEDS: Acetaminophen 325 MG TABLET 975 MG PO (11:20)
[2021-04-22 11:51] LABS: Venous Blood Gas Refer to POC result
[2021-04-22 11:52] LABS: VBG Base Excess 16.1 mmol/L; VBG HCO3 42 mmol/L (22-26); VBG pCO2 58 mmHg; VBG pH 7.47 (7.32-7.43); VBG pO2 46 mmHg
[2021-04-22 12:27] LABS: Troponin-I High Sensitivity 8.4 ng/L (<3.5-17.0)
--- NOTE | 2021-04-23 23:21 | ED_ITS ---
HPI - Chest Pain General Chief Complaint: Chest Pain Stated Complaint: chest pain Time Seen by Provider: 04/22/21 08:01 Source: patient and EMS Mode of arrival: EMS Limitations: no limitations Related Data Home Medications Medication Instructions Recorded Confirmed budesonide 0.5 mg/2 mL suspension 0.5 mg INHALATION DAILY 08/24/20 04/18/21 for nebulization cetirizine 10 mg tablet 10 mg PO DAILY PRN 11/15/20 04/18/21 acetaminophen 650 mg 1,300 mg PO BEDTIME tab 12/12/20 04/18/21 tablet,extended release Previous Rx's Medication Instructions Recorded gabapentin 800 mg tablet 800 mg PO BID #180 tab 11/07/20 furosemide 40 mg tablet 40 mg PO DAILY #180 tab 12/04/20 diltiazem HCl 180 mg 180 mg PO DAILY 90 Days #90 cap 01/31/21 capsule,extended release 24 hr denosumab 60 mg/mL subcutaneous 60 mg SUBCUT [id number] #1 ml 02/27/21 syringe omeprazole 20 mg capsule,delayed 20 mg PO DAILY #90 cap 03/02/21 release ipratropium 0.5 mg-albuterol 3 mg 3 ml INHALATION BID #180 ml 03/20/21 (2.5 mg base)/3 mL nebulization soln amiodarone 200 mg tablet 100 mg PO .COMPLEX #36 tab 04/17/21 apixaban 5 mg tablet 5 mg PO BID #180 tab 04/17/21 prednisone 10 mg tablet 10 mg PO DAILY #30 tab 04/17/21 tramadol 50 mg tablet 50 mg PO DAILY #30 tab 04/17/21 baclofen 10 mg tablet 20 mg PO TID 30 Days #180 tab 04/18/21 potassium chloride 20 mEq 20 meq PO DAILY #90 tab 04/18/21 tablet,extended release prednisone 5 mg tablet 10 mg PO DAILY 30 Days #60 tab 04/18/21 atorvastatin 40 mg tablet 40 mg PO DAILY #90 tab 04/19/21 Allergies Allergy/AdvReac Type Severity Reaction Status Date / Time latex [LATEX] Allergy Intermediate RASH Verified 04/18/21 09:03 varenicline [From Chantix] Allergy Mild hives Verified 04/18/21 09:03 barium sulfate AdvReac Mild burn on Verified 04/18/21 09:03 face nicotine AdvReac Mild rash Verified 04/18/21 09:03 lisinopril AdvReac cough Verified 04/18/21 09:03 seasonal Allergy Mild seasonal Uncoded 01/30/21 10:24 allergies ACEI AdvReac Intermediate cough Uncoded 01/30/21 10:24 PMFSH Past Medical History Medical History Abdominal pain Arthralgia Arthropathy of cervical spine Cardiomyopathy Chronic respiratory failure COPD (chronic obstructive pulmonary disease) Hyperlipidemia NICM (nonischemic cardiomyopathy) CHRISTIANO on CPAP Paroxysmal A-fib Surgical History History of bilateral cataract extraction History of esophagogastroduodenoscopy (EGD) Hx of cholecystectomy Hx of dilation and curettage Hx of hysterectomy Trigger finger of thumb Family History Family History Father CHF (congestive heart failure) PNA (pneumonia) Dementia Diabetes HTN (hypertension) Family history of diabetes mellitus Mother CHF (congestive heart failure) MRSA (methicillin resistant Staphylococcus aureus) Son Afib Son Psoriasis Arthritis Daughter Hypothyroid Fibromyalgia Brother No problems noted. Brother No problems noted. Sister No problems noted. Social History Social History Alcohol intake: never Patient Tobacco Use Status: Never used Tobacco Years Smoked: 50+ years Substance Use Type: Marijuana Physical Exam Vital Signs: Vital Signs: Last Vital Signs Temp 97.9 F 04/22/21 08:29 Pulse 96 04/22/21 11:01 Resp 17 04/22/21 11:01 BP 152/73 H 04/22/21 11:01 Pulse Ox 95 04/22/21 11:01 Oxygen Flow Rate 3 04/22/21 07:52 Body Mass Index 44.1 Course Reevaluation(s) Reevaluation #1: patient's blood cultures positive for gram positive cocci in clusters 1 out of 2, likely contamination. Dr. Kong took report from the lab and asked me to call the patient to check in on her. I spoke with patient's , he states she is feeling much better and does have follow-up appointment with Dr. Corona on Friday which is in 2 days. Advised that it was likely contamination but if she is not feeling better in the morning to have her come back to the emergency department. Time: 23:22 MDM - Chest Pain Lab Data Result diagrams: 04/22/21 08:46 04/22/21 09:23 Labs: Lab Results 04/22/21 04/22/21 04/22/21 Range/Units 08:44 08:46 08:46 WBC 10.9 H (4.8-10.8) X10*3/uL RBC 4.10 L (4.20-5.50) X10*6/uL Hgb 13.0 (12.0-16.0) g/dl Hct 40.1 (37-47) % MCV 97.8 (80-98) fL MCH 31.7 (27.0-33.0) pg MCHC 32.4 (31.0-35.0) g/dl RDW 13.0 (11.0-16.0) % Plt Count 389 (160-400) X10*3/uL MPV 9.2 L (9.4-12.3) fL Immature Gran % (Auto) 0.8 H (0.0-0.4) % Neut % (Auto) 82.2 H (45-73) % Lymph % (Auto) 8.1 L (20-40) % [place] % (Auto) 7.5 (2-11) % Eos % (Auto) 1.1 (0-4) % Baso % (Auto) 0.3 (0-2) % Lymph # (Auto) 0.9 L (1.2-4.9) X10*3/uL [place] # (Auto) 0.8 (0.1-1.2) X10*3/uL Eos # (Auto) 0.1 (0.0-0.4) X10*3/uL Baso # (Auto) 0.0 (0.0-0.2) X10*3/uL Abs Immat Gran (auto) 0.09 H (0.00-0.03) X10*3/uL Absolute Neuts (auto) 8.9 H (2.0-8.3) X10*3/uL Absolute Nucleated RBC 0.000 (0.0-0.012) X10*3/uL Nucleated RBC % (auto) 0.0 (0.0-0.2) /100WBC PT (10.8-13.0) SEC INR (0.9-1.1) VBG pH (7.32-7.43) VBG pCO2 mmHg VBG pO2 mmHg VBG HCO3 (22-26) mmol/L VBG O2 Saturation % VBG Base Excess mmol/L Sodium (135-145) mmol/L Potassium (3.3-5.1) mmol/L Chloride (96-108) mmol/L Carbon Dioxide (22-29) mmol/L Anion Gap (12-20) BUN (9-16) mg/dL Creatinine (0.5-1.4) mg/dL Estim Creat Clear Calc Estimated GFR Random Glucose (60-115) mg/dL Lactic Acid 1.1 (0.5-2.0) mmol/L Calcium (8.4-10.2) mg/dL Magnesium 2.0 (1.6-2.6) mg/dL Total Bilirubin (0.0-1.0) mg/dL Direct Bilirubin (0.0-0.5) mg/dL AST (5-31) U/L ALT (0-31) U/L Alkaline Phosphatase (39-117) U/L Troponin I High Sens (<3.5-17.0) ng/L B-Natriuretic Peptide (<100) pg/mL Total Protein (6.5-8.0) g/dL Albumin (3.5-5.0) g/dL COVID-19 ([facility]) (Negative) COVID-19 Clin Com 04/22/21 04/22/21 04/22/21 Range/Units 08:46 08:48 09:23 WBC (4.8-10.8) X10*3/uL RBC (4.20-5.50) X10*6/uL Hgb (12.0-16.0) g/dl Hct (37-47) % MCV (80-98) fL MCH (27.0-33.0) pg MCHC (31.0-35.0) g/dl RDW (11.0-16.0) % Plt Count (160-400) X10*3/uL MPV (9.4-12.3) fL Immature Gran % (Auto) (0.0-0.4) % Neut % (Auto) (45-73) % Lymph % (Auto) (20-40) % [place] % (Auto) (2-11) % Eos % (Auto) (0-4) % Baso % (Auto) (0-2) % Lymph # (Auto) (1.2-4.9) X10*3/uL [place] # (Auto) (0.1-1.2) X10*3/uL Eos # (Auto) (0.0-0.4) X10*3/uL Baso # (Auto) (0.0-0.2) X10*3/uL Abs Immat Gran (auto) (0.00-0.03) X10*3/uL Absolute Neuts (auto) (2.0-8.3) X10*3/uL Absolute Nucleated RBC (0.0-0.012) X10*3/uL Nucleated RBC % (auto) (0.0-0.2) /100WBC PT (10.8-13.0) SEC INR (0.9-1.1) VBG pH (7.32-7.43) VBG pCO2 mmHg VBG pO2 mmHg VBG HCO3 (22-26) mmol/L VBG O2 Saturation % VBG Base Excess mmol/L Sodium 146 H (135-145) mmol/L Potassium 3.9 (3.3-5.1) mmol/L Chloride 98 (96-108) mmol/L Carbon Dioxide 36 H (22-29) mmol/L Anion Gap 16 (12-20) BUN 19 H (9-16) mg/dL Creatinine 1.00 (0.5-1.4) mg/dL Estim Creat Clear Calc 63.8 Estimated GFR 55 Random Glucose 118 H (60-115) mg/dL Lactic Acid (0.5-2.0) mmol/L Calcium 9.7 (8.4-10.2) mg/dL Magnesium (1.6-2.6) mg/dL Total Bilirubin 0.5 (0.0-1.0) mg/dL Direct Bilirubin 0.3 (0.0-0.5) mg/dL AST 20 (5-31) U/L ALT 36 H (0-31) U/L Alkaline Phosphatase 85 (39-117) U/L Troponin I High Sens 8.0 (<3.5-17.0) ng/L B-Natriuretic Peptide 40 (<100) pg/mL Total Protein 6.7 (6.5-8.0) g/dL Albumin 3.8 (3.5-5.0) g/dL COVID-19 ([facility]) Negative (Negative) COVID-19 Clin Com See Note 04/22/21 04/22/21 04/22/21 Range/Units 09:23 11:42 11:45 WBC (4.8-10.8) X10*3/uL RBC (4.20-5.50) X10*6/uL Hgb (12.0-16.0) g/dl Hct (37-47) % MCV (80-98) fL MCH (27.0-33.0) pg MCHC (31.0-35.0) g/dl RDW (11.0-16.0) % Plt Count (160-400) X10*3/uL MPV (9.4-12.3) fL Immature Gran % (Auto) (0.0-0.4) % Neut % (Auto) (45-73) % Lymph % (Auto) (20-40) % [place] % (Auto) (2-11) % Eos % (Auto) (0-4) % Baso % (Auto) (0-2) % Lymph # (Auto) (1.2-4.9) X10*3/uL [place] # (Auto) (0.1-1.2) X10*3/uL Eos # (Auto) (0.0-0.4) X10*3/uL Baso # (Auto) (0.0-0.2) X10*3/uL Abs Immat Gran (auto) (0.00-0.03) X10*3/uL Absolute Neuts (auto) (2.0-8.3) X10*3/uL Absolute Nucleated RBC (0.0-0.012) X10*3/uL Nucleated RBC % (auto) (0.0-0.2) /100WBC PT 15.6 H (10.8-13.0) SEC INR 1.3 H (0.9-1.1) VBG pH 7.47 H (7.32-7.43) VBG pCO2 58 mmHg VBG pO2 46 mmHg VBG HCO3 42 H (22-26) mmol/L VBG O2 Saturation 71.0 % VBG Base Excess 16.1 mmol/L Sodium (135-145) mmol/L Potassium (3.3-5.1) mmol/L Chloride (96-108) mmol/L Carbon Dioxide (22-29) mmol/L Anion Gap (12-20) BUN (9-16) mg/dL Creatinine (0.5-1.4) mg/dL Estim Creat Clear Calc Estimated GFR Random Glucose (60-115) mg/dL Lactic Acid (0.5-2.0) mmol/L Calcium (8.4-10.2) mg/dL Magnesium (1.6-2.6) mg/dL Total Bilirubin (0.0-1.0) mg/dL Direct Bilirubin (0.0-0.5) mg/dL AST (5-31) U/L ALT (0-31) U/L Alkaline Phosphatase (39-117) U/L Troponin I High Sens 8.4 (<3.5-17.0) ng/L B-Natriuretic Peptide (<100) pg/mL Total Protein (6.5-8.0) g/dL Albumin (3.5-5.0) g/dL COVID-19 ([facility]) (Negative) COVID-19 Clin Com Discharge Plan Discharge Clinical Impression: COPD (chronic obstructive pulmonary disease) Patient Disposition: Home, Self-Care Instructions: COPD (Chronic Obstructive Pulmonary Disease) (ED) Additional Instructions: Increase your prednisone back to 10mg daily Increase your nebulizers back to full ampules Return for increasing shortness of breath if you feel that you need to stay Follow-up with pulmonology Prescriptions: No Action gabapentin 800 mg tablet 800 mg PO BID Qty: 180 RF: 3 diltiazem HCl 180 mg capsule,extended release 24hr 180 mg PO DAILY 90 Days Qty: 90 RF: 4 omeprazole 20 mg capsule,delayed release(DR/EC) 20 mg PO DAILY Qty: 90 RF: 3 ipratropium-albuterol 0.5 mg-3 mg(2.5 mg base)/3 mL solution for nebulization 3 ml inhalation BID Qty: 180 RF: 11 apixaban [Eliquis] 5 mg tablet 5 mg PO BID Qty: 180 RF: 3 amiodarone 200 mg tablet 100 mg PO .COMPLEX Qty: 36 RF: 1 prednisone 10 mg tablet 10 mg PO DAILY Qty: 30 RF: 2 tramadol 50 mg tablet 50 mg PO DAILY Qty: 30 RF: 5 potassium chloride 20 mEq tablet extended release 20 meq PO DAILY Qty: 90 RF: 0 atorvastatin 40 mg tablet 40 mg PO DAILY Qty: 90 RF: 3 furosemide [Lasix] 40 mg tablet 40 mg PO DAILY Qty: 180 RF: 2 Prolia 60 mg/mL syringe 60 mg subcut [id number] Qty: 1 RF: 1 baclofen 10 mg tablet 20 mg PO TID 30 Days Qty: 180 RF: 3 prednisone 5 mg tablet 10 mg PO DAILY 30 Days Qty: 60 RF: 5 budesonide 0.5 mg/2 mL suspension for nebulization 0.5 mg inhalation DAILY RF: 0 cetirizine [Allergy Relief (cetirizine)] 10 mg tablet 10 mg PO DAILY PRNRF: 0 acetaminophen [Tylenol Arthritis Pain] 650 mg tablet extended release 1,300 mg PO BEDTIME RF: 0 Referrals: Jero Corona MD [Physician] - 2 days Interventions: ED Discharge Assessment Last Done: 04/22/21 13:18 Discharge Date/Time: 04/22/21 13:19
== END 2021-04-22 13:19 | disposition home or self-care (01) ==
PROVIDERS: Nurse Practitioner Family; Emergency Provider Emergency Medicine; PCP Internal Medicine
DX: J44.9 Chronic obstructive pulmonary disease, unspecified (principal); Z20.822 Contact with and (suspected) exposure to COVID-19; I48.91 Unspecified atrial fibrillation; E78.5 Hyperlipidemia, unspecified; F12.90 Cannabis use, unspecified, uncomplicated
CPT/HCPCS: 36415; 71046; 80048; 80076; 83605; 83735; 83880; 84484; 85025; 85610; 87040; 87147; 87205; 87635; 93005; 94640; 99285

== ENCOUNTER → 2021-04-25 10:04 | Outpatient (BNVA) | payer MEDICARE, SELFPAY | PROVIDERS: PCP Internal Medicine; Visit Provider Hospitalist | DX: J41.0 Simple chronic bronchitis (principal); J96.11 Chronic respiratory failure with hypoxia; G47.33 Obstructive sleep apnea (adult) (pediatric); Z99.89 Dependence on other enabling machines and devices | CPT/HCPCS: 99212 ==

== ENCOUNTER → 2021-05-21 13:50 | Outpatient (BNVA) | payer MEDICARE, SELFPAY | PROVIDERS: PCP Physician Assistant; Visit Provider Hospitalist | DX: J43.2 Centrilobular emphysema (principal); J96.10 Chronic respiratory failure, unspecified whether with hypoxia or hypercapnia; J96.22 Acute and chronic respiratory failure with hypercapnia; J96.21 Acute and chronic respiratory failure with hypoxia; I48.0 Paroxysmal atrial fibrillation; I50.9 Heart failure, unspecified; R40.0 Somnolence; K21.9 Gastro-esophageal reflux disease without esophagitis; G47.33 Obstructive sleep apnea (adult) (pediatric); J30.2 Other seasonal allergic rhinitis; Z88.8 Allergy status to other drugs, medicaments and biological substances; Z91.040 Latex allergy status; Z99.81 Dependence on supplemental oxygen; Z99.89 Dependence on other enabling machines and devices; Z79.52 Long term (current) use of systemic steroids; Z79.02 Long term (current) use of antithrombotics/antiplatelets; Z79.899 Other long term (current) drug therapy | CPT/HCPCS: 99212 ==

== ENCOUNTER → 2021-05-29 14:18 | Outpatient (BNVA) | payer MEDICARE, SELFPAY | PROVIDERS: PCP Physician Assistant; Visit Provider Internal Medicine | DX: I48.0 Paroxysmal atrial fibrillation (principal); Z51.81 Encounter for therapeutic drug level monitoring; Z79.01 Long term (current) use of anticoagulants | CPT/HCPCS: 85610; 99201; 99202 ==

== ENCOUNTER → 2021-06-01 14:02 | Outpatient (BNVA) | payer MEDICARE, SELFPAY | PROVIDERS: PCP Physician Assistant; Visit Provider Internal Medicine | DX: I48.0 Paroxysmal atrial fibrillation (principal); Z51.81 Encounter for therapeutic drug level monitoring; Z79.01 Long term (current) use of anticoagulants | CPT/HCPCS: 85610; 99211 ==

== ENCOUNTER → 2021-06-05 10:02 | Outpatient (BNVA) | payer MEDICARE, SELFPAY | PROVIDERS: PCP Physician Assistant; Visit Provider Internal Medicine | DX: I48.0 Paroxysmal atrial fibrillation (principal); Z79.01 Long term (current) use of anticoagulants; Z51.81 Encounter for therapeutic drug level monitoring | CPT/HCPCS: 85610; 99211 ==

== ENCOUNTER 2021-06-08 07:25 | Outpatient (REF) | payer MEDICARE, SELFPAY ==
[2021-06-08 11:41] LABS: Hematocrit 42.7 % (37-47); Hemoglobin 13.5 g/dl (12.0-16.0); Mean Corpuscular HGB Conc 31.6 g/dl (31.0-35.0); Mean Corpuscular Volume 98.2 fL (80-98); Mean Platelet Volume 9.8 fL (9.4-12.3); Platelet Count 313 X10*3/uL (160-400); Red Blood Count 4.35 X10*6/uL (4.20-5.50); Red Cell Distribution Width 13.9 % (11.0-16.0); White Blood Count 9.6 X10*3/uL (4.8-10.8)
[2021-06-08 11:50] LABS: Estimated Average Glucose 120 mg/dL; Hemoglobin A1c % 5.8 %
[2021-06-08 11:58] LABS: Alanine Aminotransferase 28 U/L (0-31); Albumin Level 3.9 g/dL (3.5-5.0); Alkaline Phosphatase 97 U/L (39-117); Anion Gap 14 (12-20); Aspartate Amino Transferase 16 U/L (5-31); Bilirubin Total 0.4 mg/dL (0.0-1.0); Blood Urea Nitrogen 27 mg/dL (9-16); Carbon Dioxide 31 mmol/L (22-29); Chloride 101 mmol/L (96-108); Cholesterol 210 mg/dL; Estimated Glomerular Filt Rate 53; Glucose Fasting 94 mg/dL (60-99); HDL Cholesterol 93 mg/dL; LDL Cholesterol Calculated 99 mg/dl; Potassium 3.6 mmol/L (3.3-5.1); Sodium 142 mmol/L (135-145); Total Protein 6.7 g/dL (6.5-8.0); Triglycerides 90 mg/dL
[2021-06-08 12:20] LABS: TSH reflex Free T4 1.15 uIU/mL (0.32-4.0)
[2021-06-08 12:25] LABS: Erythrocyte Sedimentation Rate 52 MM/HR (0-20)
== END 2021-06-08 07:26 | disposition home or self-care (01) ==
LOC: HO.HMGCLDS 07:25
PROVIDERS: Hospitalist; Internal Medicine; PCP Physician Assistant; Visit Provider Student in an Organized Health Care Education/Training Program
DX: J41.0 Simple chronic bronchitis (principal); J96.11 Chronic respiratory failure with hypoxia; E78.2 Mixed hyperlipidemia; I48.0 Paroxysmal atrial fibrillation; I10 Essential (primary) hypertension; E66.01 Morbid (severe) obesity due to excess calories; M35.3 Polymyalgia rheumatica; M81.0 Age-related osteoporosis without current pathological fracture
CPT/HCPCS: 36415; 80053; 80061; 83036; 84443; 85027; 85610; 85652; 86140; 99211

== ENCOUNTER → 2021-06-12 14:20 | Outpatient (BNVA) | payer MEDICARE, SELFPAY | PROVIDERS: PCP Internal Medicine; Visit Provider Nurse Practitioner Family | DX: M35.3 Polymyalgia rheumatica (principal); M81.0 Age-related osteoporosis without current pathological fracture; Z79.52 Long term (current) use of systemic steroids | CPT/HCPCS: 99212 ==

== ENCOUNTER → 2021-06-15 10:04 | Outpatient (BNVA) | payer MEDICARE, SELFPAY | PROVIDERS: PCP Physician Assistant; Visit Provider Internal Medicine | DX: I48.0 Paroxysmal atrial fibrillation (principal); Z51.81 Encounter for therapeutic drug level monitoring; Z79.01 Long term (current) use of anticoagulants | CPT/HCPCS: 85610; 99211 ==

== ENCOUNTER 2021-06-21 11:18 | Outpatient (REF) | payer MEDICARE, SELFPAY ==
--- NOTE | ~2021-06-21 | US_ITS ---
EXAMINATION: ULTRASOUND OF THE TEMPORAL ARTERIES. Interventional Radiologist: Colton Luna M.D., F.S.I.R., F.A.C.R. CLINICAL INFORMATION: This is a 70-year-old female with right yarsanism pain. Intermittent right eye blurriness. Possible temporal arteritis. COMPARISON: None TECHNIQUE: Ultrasound of the bilateral temporal arteries was performed. Color-flow spectral waveform analysis was performed. Velocity measurements were obtained. FINDINGS: Proximal right common femoral artery: 76/16 cm/s. Mid right common femoral artery: 65/13 cm/s. Distal right common temporal artery: 104/18 cm/s. No hypoechoic halo seen in the right temporal artery. Right frontal branch: 67/15 cm/s. Right parietal branch: 69/14 cm/s. Proximal left common femoral artery: 84/20 cm/s. Mid left common femoral artery: 64/11 cm/s. Distal left common femoral artery: 53/12 cm/s. No hypoechoic halo is seen in the left temporal artery. Left frontal branch: 38/9 cm/s. Left parietal branch: 62/12 cm/s. US/US soft tiss head and/or neck IMPRESSION: 1. No temporal artery stenoses or occlusions are identified. No halo sign is seen. 2. The findings do not suggest temporal arteritis.
== END 2021-06-21 11:19 | disposition home or self-care (01) ==
LOC: HO.HMGCX 11:18
PROVIDERS: PCP Physician Assistant; Visit Provider Nurse Practitioner Family
DX: M35.3 Polymyalgia rheumatica (principal)
CPT/HCPCS: 76536

== ENCOUNTER → 2021-06-22 10:27 | Outpatient (BNVA) | payer MEDICARE, SELFPAY | PROVIDERS: PCP Physician Assistant; Visit Provider Internal Medicine | DX: I48.0 Paroxysmal atrial fibrillation (principal); Z51.81 Encounter for therapeutic drug level monitoring; Z79.01 Long term (current) use of anticoagulants | CPT/HCPCS: 85610; 99211 ==

== ENCOUNTER → 2021-06-27 10:40 | Outpatient (BNVA) | payer MEDICARE, SELFPAY | PROVIDERS: PCP Physician Assistant; Visit Provider Internal Medicine | DX: I48.0 Paroxysmal atrial fibrillation (principal); Z51.81 Encounter for therapeutic drug level monitoring; Z79.01 Long term (current) use of anticoagulants | CPT/HCPCS: 85610; 99211 ==

== ENCOUNTER 2021-07-03 10:21 | Outpatient (REF) | payer MEDICARE, SELFPAY ==
[2021-07-03 12:29] LABS: Erythrocyte Sedimentation Rate 61 MM/HR (0-20)
[2021-07-03 16:14] LABS: C Reactive Protein 1.67 mg/dL (< or = 0.50)
== END 2021-07-03 10:22 | disposition home or self-care (01) ==
LOC: HO.LAB 10:21
PROVIDERS: Absent Provider Student in an Organized Health Care Education/Training Program; PCP Physician Assistant; Visit Provider Nurse Practitioner Family
DX: M35.3 Polymyalgia rheumatica (principal); M81.0 Age-related osteoporosis without current pathological fracture; I42.8 Other cardiomyopathies; E66.01 Morbid (severe) obesity due to excess calories; E78.5 Hyperlipidemia, unspecified; I48.0 Paroxysmal atrial fibrillation; J41.0 Simple chronic bronchitis; Z79.01 Long term (current) use of anticoagulants
CPT/HCPCS: 36415; 85610; 85652; 86140; 99211

== ENCOUNTER → 2021-07-04 08:48 | Outpatient (BNVA) | payer MEDICARE, SELFPAY | PROVIDERS: PCP Physician Assistant; Visit Provider Nurse Practitioner Family | DX: M35.3 Polymyalgia rheumatica (principal); M81.0 Age-related osteoporosis without current pathological fracture; Z79.52 Long term (current) use of systemic steroids | CPT/HCPCS: 99212 ==

== ENCOUNTER → 2021-07-06 10:15 | Outpatient (BNVA) | payer MEDICARE, SELFPAY | PROVIDERS: PCP Physician Assistant; Visit Provider Internal Medicine | DX: J41.0 Simple chronic bronchitis (principal); J43.2 Centrilobular emphysema; K21.9 Gastro-esophageal reflux disease without esophagitis; G47.33 Obstructive sleep apnea (adult) (pediatric); I48.0 Paroxysmal atrial fibrillation; I71.9 Aortic aneurysm of unspecified site, without rupture; J96.11 Chronic respiratory failure with hypoxia; Z51.81 Encounter for therapeutic drug level monitoring; Z79.01 Long term (current) use of anticoagulants; Z79.899 Other long term (current) drug therapy; Z87.891 Personal history of nicotine dependence; Z99.89 Dependence on other enabling machines and devices | CPT/HCPCS: 85610; 99211; 99212 ==

== ENCOUNTER → 2021-07-10 14:23 | Outpatient (BNVA) | payer MEDICARE, SELFPAY | PROVIDERS: PCP Physician Assistant; Visit Provider Internal Medicine | DX: I48.0 Paroxysmal atrial fibrillation (principal); Z51.81 Encounter for therapeutic drug level monitoring; Z79.01 Long term (current) use of anticoagulants | CPT/HCPCS: 85610; 99211 ==

== ENCOUNTER → 2021-07-17 10:18 | Outpatient (BNVA) | payer MEDICARE, SELFPAY | PROVIDERS: PCP Physician Assistant; Visit Provider Internal Medicine | DX: I48.0 Paroxysmal atrial fibrillation (principal); Z51.81 Encounter for therapeutic drug level monitoring; Z79.01 Long term (current) use of anticoagulants | CPT/HCPCS: 85610; 99211 ==

== ENCOUNTER 2021-07-24 08:50 | Outpatient (REF) | payer MEDICARE, SELFPAY ==
--- NOTE | ~2021-07-24 | US_ITS ---
EXAMINATION: US RETROPERITONEAL LIMITED (AORTA) CLINICAL INFORMATION: Abdominal aortic aneurysm without rupture. COMPARISON: Ultrasound 02/20/2021, CT abdomen 09/25/2020 TECHNIQUE: Waite-scale, color Doppler and spectral Doppler evaluation of the abdominal aorta. The study is significantly technically limited secondary to body habitus and bowel gas. FINDINGS: There is an aneurysmal segment of the proximal to mid aorta. The measurements of the aorta in maximum AP and transverse dimensions respectively are as follows: Proximal: 2.5 x 2.5 cm. Aneurysmal segment of the proximal to mid aorta: 3.6 x 3.6 cm, previously measured as 3.8 x 4.1 cm. Mid: 2.3 x 2.2 cm. Distal: 2.4 x 2.5 cm. PSV: 46.2 cm/s. The measurements of the common iliac arteries in maximum AP and TRV dimensions are as follows: Right Common Iliac Artery: 1.6 x 1.9 cm, previously 1.5 x 1.7 cm Left Common Iliac Artery: 1.4 x 1.8 cm, previously 1.4 x 1.6 cm. US/US abdominal aortic aneurysm IMPRESSION: Technically limited study with redemonstration of a 3.6 cm aneurysmal segment of the proximal to mid abdominal aorta. Given technical limitations, could consider cross-sectional imaging for future monitoring. Stable mild dilation of the bilateral common iliac arteries.
== END 2021-07-24 08:51 | disposition home or self-care (01) ==
LOC: HO.HMGCX 08:50
PROVIDERS: PCP Physician Assistant; Visit Provider Internal Medicine
DX: I71.4 Abdominal aortic aneurysm, without rupture (principal)
CPT/HCPCS: 76706

== ENCOUNTER → 2021-07-31 10:08 | Outpatient (BNVA) | payer MEDICARE, SELFPAY | PROVIDERS: PCP Physician Assistant; Referring Provider Physician Assistant; Visit Provider Internal Medicine | DX: I48.0 Paroxysmal atrial fibrillation (principal); I42.8 Other cardiomyopathies; G47.33 Obstructive sleep apnea (adult) (pediatric); Z51.81 Encounter for therapeutic drug level monitoring; Z99.89 Dependence on other enabling machines and devices; Z79.899 Other long term (current) drug therapy | CPT/HCPCS: 99212 ==

== ENCOUNTER → 2021-08-01 10:08 | Outpatient (BNVA) | payer MEDICARE, SELFPAY | PROVIDERS: PCP Physician Assistant; Visit Provider Internal Medicine | DX: I48.0 Paroxysmal atrial fibrillation (principal); Z51.81 Encounter for therapeutic drug level monitoring; Z79.01 Long term (current) use of anticoagulants | CPT/HCPCS: 85610; 99211 ==

== ENCOUNTER 2021-08-13 10:48 | Outpatient (REF) | payer MEDICARE, SELFPAY ==
[2021-08-13 12:07] LABS: MANUAL DIFF FLAG NO
[2021-08-13 12:27] LABS: Basophils Percent Auto 0.2 % (0-2); Eosinophils Percent Auto 0.2 % (0-4); Hematocrit 43.9 % (37-47); Hemoglobin 14.4 g/dl (12.0-16.0); Imm Gran Abs Auto 0.21 X10*3/uL (0.00-0.03); Imm Gran Pct Auto 1.7 % (0.0-0.4); Lymphocytes Absolute Auto 0.8 X10*3/uL (1.2-4.9); Lymphocytes Percent Auto 6.6 % (20-40); Mean Corpuscular HGB Conc 32.8 g/dl (31.0-35.0); Mean Corpuscular Hemoglobin 30.6 pg (27.0-33.0); Mean Corpuscular Volume 93.4 fL (80-98); Mean Platelet Volume 9.2 fL (9.4-12.3); Monocytes Absolute Auto 0.7 X10*3/uL (0.1-1.2); Monocytes Percent Auto 5.9 % (2-11); Neutrophils Absolute Auto 10.4 X10*3/uL (2.0-8.3); Neutrophils Percent Auto 85.4 % (45-73); Platelet Count 316 X10*3/uL (160-400); Red Cell Distribution Width 14.3 % (11.0-16.0); White Blood Count 12.2 X10*3/uL (4.8-10.8)
[2021-08-13 12:55] LABS: Alanine Aminotransferase 29 U/L (0-31); Albumin Level 4.1 g/dL (3.5-5.0); Alkaline Phosphatase 107 U/L (39-117); Anion Gap 16 (12-20); Aspartate Amino Transferase 21 U/L (5-31); Bilirubin Total 0.5 mg/dL (0.0-1.0); Blood Urea Nitrogen 20 mg/dL (9-16); C Reactive Protein 1.17 mg/dL (< or = 0.50); Calcium 9.7 mg/dL (8.4-10.2); Carbon Dioxide 33 mmol/L (22-29); Chloride 99 mmol/L (96-108); Estimated Glomerular Filt Rate 46; Glucose Random 116 mg/dL (60-115); Potassium 3.6 mmol/L (3.3-5.1); Sodium 144 mmol/L (135-145)
[2021-08-13 13:25] LABS: Erythrocyte Sedimentation Rate 54 MM/HR (0-20)
[2021-08-18 19:47] LABS: Amiodarone, Serum 0.5 mcg/mL (1.5-2.5)
== END 2021-08-13 10:49 | disposition home or self-care (01) ==
LOC: HO.LAB 10:48
PROVIDERS: Absent Provider Physician Assistant; PCP Physician Assistant; Visit Provider Nurse Practitioner Family
DX: I48.0 Paroxysmal atrial fibrillation (principal); M35.3 Polymyalgia rheumatica; M81.0 Age-related osteoporosis without current pathological fracture; Z79.52 Long term (current) use of systemic steroids
CPT/HCPCS: 36415; 80053; 80151; 85025; 85652; 86140; 99212

== ENCOUNTER → 2021-08-15 10:08 | Outpatient (BNVA) | payer MEDICARE, SELFPAY | PROVIDERS: PCP Physician Assistant; Visit Provider Internal Medicine | DX: I48.0 Paroxysmal atrial fibrillation (principal); Z51.81 Encounter for therapeutic drug level monitoring; Z79.01 Long term (current) use of anticoagulants | CPT/HCPCS: 85610; 99211 ==

== ENCOUNTER → 2021-08-20 10:02 | Outpatient (BNVA) | payer MEDICARE, SELFPAY | PROVIDERS: PCP Physician Assistant; Visit Provider Hospitalist | DX: J44.9 Chronic obstructive pulmonary disease, unspecified (principal); J96.22 Acute and chronic respiratory failure with hypercapnia; J96.21 Acute and chronic respiratory failure with hypoxia; J31.0 Chronic rhinitis; R40.0 Somnolence; I48.0 Paroxysmal atrial fibrillation; G47.33 Obstructive sleep apnea (adult) (pediatric); E78.5 Hyperlipidemia, unspecified; J30.2 Other seasonal allergic rhinitis; Z88.8 Allergy status to other drugs, medicaments and biological substances; Z91.041 Radiographic dye allergy status; Z91.040 Latex allergy status; Z99.81 Dependence on supplemental oxygen; Z99.89 Dependence on other enabling machines and devices | CPT/HCPCS: 99212 ==

== ENCOUNTER → 2021-08-29 10:06 | Outpatient (BNVA) | payer MEDICARE, SELFPAY | PROVIDERS: PCP Physician Assistant; Visit Provider Internal Medicine | DX: I48.0 Paroxysmal atrial fibrillation (principal); Z51.81 Encounter for therapeutic drug level monitoring; Z79.01 Long term (current) use of anticoagulants | CPT/HCPCS: 85610; 99211 ==

== ENCOUNTER → 2021-09-04 10:52 | Outpatient (BNVA) | payer MEDICARE, SELFPAY | PROVIDERS: PCP Physician Assistant; Visit Provider Nurse Practitioner Family | DX: M81.0 Age-related osteoporosis without current pathological fracture (principal) | CPT/HCPCS: 96372; J0897 ==

== ENCOUNTER → 2021-09-27 13:33 | Outpatient (BNVA) | payer MEDICARE, SELFPAY | PROVIDERS: PCP Physician Assistant; Visit Provider Internal Medicine | DX: I48.0 Paroxysmal atrial fibrillation (principal); Z51.81 Encounter for therapeutic drug level monitoring; Z79.01 Long term (current) use of anticoagulants | CPT/HCPCS: 85610; 99211 ==

== ENCOUNTER → 2021-10-25 10:22 | Outpatient (BNVA) | payer MEDICARE, SELFPAY | PROVIDERS: PCP Physician Assistant; Visit Provider Internal Medicine | DX: I48.0 Paroxysmal atrial fibrillation (principal); Z51.81 Encounter for therapeutic drug level monitoring; Z79.01 Long term (current) use of anticoagulants | CPT/HCPCS: 85610; 99211 ==

== ENCOUNTER → 2021-11-21 10:06 | Outpatient (BNVA) | payer MEDICARE, SELFPAY | PROVIDERS: PCP Physician Assistant; Visit Provider Internal Medicine | DX: I48.0 Paroxysmal atrial fibrillation (principal); Z51.81 Encounter for therapeutic drug level monitoring; Z79.01 Long term (current) use of anticoagulants | CPT/HCPCS: 85610; 99211 ==

== ENCOUNTER 2021-12-05 09:51 | Outpatient (REF) | payer MEDICARE, SELFPAY ==
--- NOTE | ~2021-12-05 | XR_ITS ---
EXAMINATION: XR LUMBOSACRAL SPINE CLINICAL INFORMATION: Spondylosis COMPARISON: Previous x-ray April 2020 abdominal aortic ultrasound June 2021 TECHNIQUE: Three views of the lumbosacral spine. FINDINGS: AP view is limited due to light film technique. Bone alignment is normal. No fracture or dislocation is seen. There is mild disc space narrowing at L1-L2. Disc spaces are otherwise normal. There is lower lumbar spine facet arthritis. There is spondylosis of the lower thoracic and upper lumbar spine. There is evidence of atherosclerotic disease. The midabdominal aorta appears mildly dilated. This measures 4.2 cm in AP dimension not accounting for magnification but is probably better assessed with ultrasound. This measured 3.6 cm on June 2021 aortic ultrasound. XR/XR lumbar spine 2-3V IMPRESSION: Degenerative changes. Atherosclerotic disease and mild dilatation of the abdominal aorta.
[2021-12-05 11:18] LABS: MANUAL DIFF FLAG NO
[2021-12-05 12:07] LABS: Basophils Percent Auto 0.3 % (0-2); Eosinophils Absolute Auto 0.1 X10*3/uL (0.0-0.4); Eosinophils Percent Auto 1.2 % (0-4); Hematocrit 42.2 % (37.0-47.0); Hemoglobin 13.6 g/dl (12.0-16.0); Lymphocytes Absolute Auto 1.4 X10*3/uL (1.2-4.9); Lymphocytes Percent Auto 13.9 % (20-40); Mean Corpuscular HGB Conc 32.2 g/dl (31.0-35.0); Mean Corpuscular Hemoglobin 30.8 pg (27.0-33.0); Mean Corpuscular Volume 95.7 fL (80.0-98.0); Mean Platelet Volume 9.4 fL (9.4-12.3); Monocytes Absolute Auto 0.8 X10*3/uL (0.1-1.2); Monocytes Percent Auto 7.6 % (2-11); Neutrophils Absolute Auto 7.8 x10*3/uL (2.0-8.3); Platelet Count 356 X10*3/uL (160-400); Red Blood Count 4.41 X10*6/uL (4.20-5.50); White Blood Count 10.3 X10*3/uL (4.8-10.8)
[2021-12-05 12:34] LABS: Alanine Aminotransferase 45 U/L (0-31); Alkaline Phosphatase 99 U/L (39-117); Anion Gap 14 (12-20); Aspartate Amino Transferase 33 U/L (5-31); Bilirubin Total 0.8 mg/dL (0.0-1.0); C Reactive Protein 0.97 mg/dL (< or = 0.50); Carbon Dioxide 33 mmol/L (22-29); Chloride 100 mmol/L (96-108); Estimated Glomerular Filt Rate 51; Glucose Random 119 mg/dL (60-115); Potassium 3.3 mmol/L (3.3-5.1); Sodium 144 mmol/L (135-145); Total Protein 6.9 g/dL (6.5-8.0)
[2021-12-05 12:43] LABS: Vitamin D 25-OH Total 20.5 ng/mL (>30)
[2021-12-05 12:49] LABS: Erythrocyte Sedimentation Rate 62 MM/HR (0-20)
[2021-12-05 15:00] LABS: Blood Urea Nitrogen 22 mg/dL (9-16); Calcium 9.6 mg/dL (8.4-10.2)
== END 2021-12-05 09:52 | disposition home or self-care (01) ==
LOC: HO.XRAY 09:51
PROVIDERS: PCP Physician Assistant; Visit Provider Nurse Practitioner Family
DX: M47.816 Spondylosis without myelopathy or radiculopathy, lumbar region (principal); M81.0 Age-related osteoporosis without current pathological fracture; M35.3 Polymyalgia rheumatica
CPT/HCPCS: 36415; 72100; 80053; 82306; 85025; 85652; 86140; 99212

== ENCOUNTER → 2021-12-19 10:28 | Outpatient (BNVA) | payer MEDICARE, SELFPAY | PROVIDERS: PCP Physician Assistant; Visit Provider Internal Medicine | DX: Z13.89 Encounter for screening for other disorder (principal) | CPT/HCPCS: 85610; 99211 ==

== ENCOUNTER 2021-12-19 11:10 | Inpatient (IN) | payer MEDICARE, SELFPAY ==
[2021-12-19] VITALS (8 sets, daily range): BP systolic 148–169; BP diastolic 70–92; PULSE 96–122; RESP 16–23; TEMP 36.6–36.9; O2SAT 91–97; BMI 46.3
--- NOTE | ~2021-12-19 | XR_ITS ---
EXAMINATION: XR CHEST CLINICAL INFORMATION: Shortness of breath. COPD. COMPARISON: Previous chest x-ray March 2021 TECHNIQUE: Frontal view of the chest was obtained. FINDINGS: The cardiac and mediastinal contours are stable. There is atelectasis or small infiltrate at the right lung base. The lungs are otherwise clear. There is no pleural effusion or pneumothorax. There are degenerative changes of the spine. XR/XR chest 1V IMPRESSION: Atelectasis or small infiltrate at the right lung base.
--- NOTE | ~2021-12-19 | CT_ITS ---
EXAMINATION: CT ANGIOGRAM OF THE CHEST WITH AND WITHOUT CONTRAST (CT PULMONARY ANGIOGRAM FOR PE) CLINICAL INFORMATION: Acute SOB. COMPARISON: None. TECHNIQUE: Prior to contrast administration, noncontrast localization images were obtained. Subsequently, multidetector volumetric imaging was performed from the thoracic inlet to below the diaphragms following the administration of 80 mL Omnipaque 350 intravenous contrast. No contrast reaction reported Sagittal, coronal, and MIP oblique sagittal reformatted images were obtained on the CT workstation, uploaded to PACS, and reviewed. This CT examination was performed using dose optimization techniques as appropriate, variously including the following: *Automated exposure control *Adjustment of mA and/or kV according to patient size (this includes techniques or standardized protocols for targeted exams where dose is matched to indication/reason for exam; i.e. extremities or head) *Use of iterative reconstruction technique Total exam dose-length product 283 mGy-cm FINDINGS: QUALITY OF STUDY/CONTRAST BOLUS: Satisfactory. PULMONARY ARTERIES: There is good opacification of the pulmonary artery and its branches. There are coronary artery calcifications. THORACIC AORTA: No aneurysm or dissection. LUNG: The lungs are expanded with focal atelectatic changes left lower lobe, lingula and right lower lobe. No airspace disease seen to suspect any consolidation. PLEURA: No pleural effusion or pneumothorax. MEDIASTINUM: The thyroid lobes are symmetrical and normal size. Normal heart size. No pericardial effusion. No hilar or mediastinal lymphadenopathy. No evidence of septal bowing or right heart strain. CHEST WALL/AXILLA: No axillary or internal mammary lymphadenopathy. OSSEOUS STRUCTURES: There is mild ventral spondylosis dorsal spine. No lytic or sclerotic process seen. UPPER ABDOMEN: Visualized liver, spleen, pancreas and bilateral adrenal glands are unremarkable. No reflux of contrast into the hepatic veins to suggest elevated right heart pressures. CT/CT angio chest PE protocol IMPRESSION: No evidence of PE. No evidence of aortic dissection. Bilateral lower lobe and lingular atelectasis. VTE: Negative.
--- NOTE | 2021-12-19 12:16 | PC.NURSE ---
a&ox3, hx COPD, worse over the past 5 days, normally only on O2 at night, but has been on 3L for 5 days. compliance monitor applies, sinus tach w PVCs, +3 edema - normal for pt. hypertension, normally controlled on meds ~120/78. denies chest pain. some upper posterior chest spasms, sore when spasms start, but denies pain. provider in room, labs drawn.
--- NOTE | 2021-12-19 12:18 | ECG_ITS ---
Test Reason : DYSPENA Blood Pressure : / mmHG Vent. Rate : 099 BPM Atrial Rate : 099 BPM P-R Int : 190 ms QRS Dur : 086 ms QT Int : 386 ms P-R-T Axes : 054 016 027 degrees QTc Int : 495 ms Normal sinus rhythm Possible Left atrial enlargement Prolonged QT Abnormal ECG When compared with ECG of 22-APR-2021 07:55, No significant change was found Referred By: Shanelle Brar Electronically Signed By:VIRI GREER
--- NOTE | 2021-12-19 12:36 | PC.NURSE ---
O2 at 87 on room air at [facility] [place]. provider notified.
[2021-12-19] MEDS: methylPREDNISolone Sod Succ 125 MG/2 ML VIAL IVPUSH (12:40)
[2021-12-19] MEDS: Magnesium Sulfate/H2O 2 GM/50 ML PIGGYBACK IV (12:40)
--- NOTE | 2021-12-19 12:44 | PHA.MEDREC ---
Pharmacy Consult ? Medication Reconciliation Pharmacy has completed the medication reconciliation. Patient reported all medications. Vanessa Ferrera, LauraD
[2021-12-19] MEDS: Albuterol Sulfate (0.083%) 2.5 MG/3 ML VIAL.NEB 5 MG INHALE ×2 (12:45→14:23)
[2021-12-19] MEDS: Albuterol/Iprat 2.5/0.5MG 3 ML AMPUL.NEB INHALE ×3 (12:45→19:20)
[2021-12-19 12:59] LABS: COVID-19 Test Negative (Negative)
[2021-12-19 13:01] LABS: Lactic Acid 1.4 mmol/L (0.5-2.0)
[2021-12-19 13:07] LABS: Alanine Aminotransferase 51 U/L (0-31); Alkaline Phosphatase 120 U/L (39-117); Anion Gap 17 (12-20); Aspartate Amino Transferase 38 U/L (5-31); Bilirubin Direct 0.3 mg/dL (0.0-0.5); Bilirubin Total 0.9 mg/dL (0.0-1.0); Blood Urea Nitrogen 24 mg/dL (9-16); Carbon Dioxide 33 mmol/L (22-29); Chloride 94 mmol/L (96-108); Creatinine Clr Calc Pharmacy 65.6; Estimated Glomerular Filt Rate 55; Glucose Random 113 mg/dL (60-115); Potassium 3.4 mmol/L (3.3-5.1); Sodium 141 mmol/L (135-145); Total Protein 7.1 g/dL (6.5-8.0)
[2021-12-19 13:13] LABS: B Type Natriuretic Peptide 83 pg/mL (<100); Troponin-I High Sensitivity 8.9 ng/L (<3.5-17.0)
[2021-12-19 13:22] LABS: MANUAL DIFF FLAG NO
[2021-12-19 13:23] LABS: Basophils Percent Auto 0.3 % (0-2); Eosinophils Percent Auto 0.3 % (0-4); Hematocrit 41.3 % (37.0-47.0); Hemoglobin 13.5 g/dl (12.0-16.0); Imm Gran Abs Auto 0.11 X10*3/uL (0.00-0.03); Imm Gran Pct Auto 0.7 % (0.0-0.4); Lymphocytes Absolute Auto 2.7 X10*3/uL (1.2-4.9); Lymphocytes Percent Auto 17.7 % (20-40); Mean Corpuscular HGB Conc 32.7 g/dl (31.0-35.0); Mean Corpuscular Volume 94.9 fL (80.0-98.0); Mean Platelet Volume 9.2 fL (9.4-12.3); Monocytes Absolute Auto 1.1 X10*3/uL (0.1-1.2); Monocytes Percent Auto 7.1 % (2-11); Neutrophils Absolute Auto 11.3 x10*3/uL (2.0-8.3); Neutrophils Percent Auto 73.9 % (45-73); Platelet Count 322 X10*3/uL (160-400); Red Blood Count 4.35 X10*6/uL (4.20-5.50); Red Cell Distribution Width 13.4 % (11.0-16.0); White Blood Count 15.3 X10*3/uL (4.8-10.8)
[2021-12-19 13:34] LABS: INTERNATIONAL NORM RATIO 2.8 (0.9-1.1); Prothrombin Time 32.3 SEC (9.9-13.0)
--- NOTE | 2021-12-19 14:03 | ED_ITS ---
HPI - SOB/Dyspnea General Chief Complaint: Dyspnea Stated Complaint: diff breathing/ mucle spasms Time Seen by Provider: 12/19/21 11:55 Source: patient Mode of arrival: ambulatory History of Present Illness HPI Narrative: 70-year-old female with a past medical history of aortic aneurysm, cardiomyopathy, COPD on 3L NC at night and chronic prednisone, HLD, was and CPAP, AFib on Coumadin, presenting to the ED complaining of worsening dyspnea x5 days with dry cough and wheezing. Reports chronic pedal edema unchanged. Denies fever, chills, chest pain, abdominal pain, nausea/vomiting, recent travel, COVID-19 exposure MD elicited complaint: shortness of breath and cough Pertinent past history: COPD Onset (ago): day(s) Related Data Home Medications Medication Instructions Recorded Confirmed cetirizine 10 mg tablet (Allergy 10 mg PO DAILY 11/15/20 12/19/21 Relief (cetirizine)) mupirocin 2 % topical ointment 1 appl TOPICAL BID PRN g 12/05/21 12/19/21 amiodarone 200 mg tablet 100 mg PO MOWEFR 12/19/21 12/19/21 atorvastatin 40 mg tablet 40 mg PO BEDTIME 12/19/21 12/19/21 budesonide 0.5 mg/2 mL suspension 0.5 mg INHALATION BEDTIME 12/19/21 12/19/21 for nebulization furosemide 40 mg tablet 80 mg PO DAILY 12/19/21 12/19/21 gabapentin 800 mg tablet 800 mg PO BID 12/19/21 12/19/21 ipratropium 0.5 mg-albuterol 3 mg 3 ml INHALATION BID 12/19/21 12/19/21 (2.5 mg base)/3 mL nebulization soln prednisone 1 mg tablet 4 mg PO DAILY 12/19/21 12/19/21 tramadol 50 mg tablet 50 mg PO BEDTIME 12/19/21 12/19/21 warfarin 5 mg tablet 2.5 mg PO MO 12/19/21 12/19/21 warfarin 5 mg tablet 5 mg PO SUTUWETHFRSA 12/19/21 12/19/21 Previous Rx's Medication Instructions Recorded omeprazole 20 mg capsule,delayed 20 mg PO DAILY #90 cap 03/02/21 release potassium chloride 20 mEq 20 meq PO DAILY #90 tab 07/10/21 tablet,extended release diltiazem HCl 120 mg 120 mg PO BID #180 cap 07/31/21 capsule,extended release 24 hr Allergies Allergy/AdvReac Type Severity Reaction Status Date / Time latex [LATEX] Allergy Intermediate RASH Verified 12/19/21 10:49 varenicline [From Chantix] Allergy Mild hives Verified 12/19/21 10:49 barium sulfate AdvReac Mild burn on Verified 12/19/21 10:49 face nicotine AdvReac Mild rash Verified 12/19/21 10:49 lisinopril AdvReac cough Verified 12/19/21 10:49 seasonal Allergy Mild seasonal Uncoded 12/19/21 10:49 allergies ACEI AdvReac Intermediate cough Uncoded 12/19/21 10:49 Review of Systems Review of Systems: Constitutional: No Fever, No Chills, No Fatigue, No Malaise ENT/Mouth: No Ear Pain, No Nasal Congestion, No Hoarseness, No sore throat, No Swallowing Difficulty Eyes: No Eye Pain, No Swelling, No Redness, No Discharge, No Vision Changes Cardiovascular: No Chest Pain, + SOB, No Dyspnea on Exertion, No Orthopnea, +Chronic Edema, No Palpitations Respiratory: + Cough, No Sputum, + Wheezing, No Smoke Exposure, + Dyspnea Gastrointestinal: No Nausea, No Vomiting, No Diarrhea, No Constipation, No Abdominal pain Genitourinary: No Dysuria, No Urinary Frequency, No Hematuria, No Flank Pain Musculoskeletal: No joint pain, No Myalgias, No Joint Swelling Skin: No Skin Lesions, No rash Neuro: No Weakness, No Numbness, No Dizziness, No Headache Yes all other systems are reviewed and are negative [facility] Past Medical History Attestation statement: The following information was validated with the patient. Medical History Abdominal pain Aortic aneurysm Arthralgia Arthropathy of cervical spine Cardiomyopathy Chronic respiratory failure COPD (chronic obstructive pulmonary disease) COPD (chronic obstructive pulmonary disease) Hyperlipidemia NICM (nonischemic cardiomyopathy) CHRISTIANO on CPAP Paroxysmal A-fib Surgical History History of bilateral cataract extraction History of esophagogastroduodenoscopy (EGD) Hx of cholecystectomy Hx of dilation and curettage Hx of hysterectomy Trigger finger of thumb Family History Family History Father CHF (congestive heart failure) PNA (pneumonia) Dementia Diabetes HTN (hypertension) Family history of diabetes mellitus Mother CHF (congestive heart failure) MRSA (methicillin resistant Staphylococcus aureus) Son Afib Son Psoriasis Arthritis Daughter Hypothyroid Fibromyalgia Brother No problems noted. Brother No problems noted. Sister No problems noted. Social History Social History Housing: House Alcohol intake: current Alcohol intake frequency: holidays/special occasions only Alcohol type: beer and hard liquor Patient Tobacco Use Status: Former Tobacco user Years Smoked: 50+ years e-Cigarette/Vaping Use: Never Used Second Hand Smoke Exposure: No Use of substances other than those prescribed or required for medical reasons: Yes Substance Use Type: Marijuana Substance Use Type Other:: medical marijuana edibles, 5mg once daily for pain management Substance Use Frequency: Daily Last Used Substance: Days (ago) Advance Directives: No Advance Directives Information Provided: No service: No Current occupational status: retired Physical Exam Vital Signs: Vital Signs: Last Vital Signs Temp 98.4 F 12/19/21 15:44 Pulse 122 H 12/19/21 15:44 Resp 17 12/19/21 15:44 BP 169/70 H 12/19/21 17:29 Pulse Ox 92 12/19/21 15:44 Oxygen Flow Rate 3 12/19/21 11:19 BMI result Body Mass Index 46.3 Const: General: cooperative Nutritional Appearance: overweight Orientation/consciousness: patient oriented x3 Limitations: no limitations HENMT: Head: Yes normal to inspection Ears: hearing grossly normal bilaterally General nose exam: Normal external nose present Face and sinus: Yes normal facial exam Eyes: General: appearance normal, both eyes and all related structures EOM: EOMs intact bilaterally Neck: Neck: Yes normal visual inspection and Yes no meningeal signs Resp: Effort & Inspection: labored and pursed lip breathing Auscultation: wheezes expiratory wheezes and lower bilaterally and diminished lung sounds diffuse Cardio: Rate: regular rate Heart sounds: S1 normal heart sound present and S2 normal heart sound present GI: Inspection: Yes normal to inspection Palpation (GI): Soft to palpation, nontender, no guarding and not rigid : General: Yes no CVA tenderness Back/Spine/Pelvis: Back: no CVA tenderness Skin: Rashes: no rashes Wounds: no wounds Neuro: General: patient oriented x3 and no meningeal signs Gait exam (Neuro): Normal gait present Extrem: Other: Chronic nonpitting bilateral LE edema Course Course Course Narrative: -1403--leukocytosis of 15.3 suspected from chronic prednisone use, still low suspicion for severe sepsis. -INR therapeutic. BUN chronically elevated. AST/ALT chronically elevated. Initial troponin 8.9 > will obtain 3 hour repeat, labs otherwise unremarkable -1415--on re-evaluation decreased breath sounds throughout, tight lung sounds. Patient satting 89-91% on 4L NC -1435--XR chest 1V IMPRESSION: Atelectasis or small infiltrate at the right lung base. >> infection now suspected. Empiric IV Rocephin and Azithromycin ordered MDM - SOB/Dyspnea MDM Narrative Medical decision making narrative: 70-year-old female with a past medical history of aortic aneurysm, cardiomyopathy, COPD on 3L NC at night and chronic prednisone, HLD, was and CPAP, AFib on Coumadin, presenting to the ED complaining of worsening dyspnea x5 days with dry cough and wheezing. On exam tachycardic, tachypneic, satting 87% on RA, 92 on 3L NC, diminished lung sounds throughout with bibasilar expiratory wheeze, chronic pedal edema. Concern for COPD exacerbation vs CHF vs ?pna or viral syndrome/COVID-19. Unlikely PE as patient is anticoagulated Plan: EKG, labs, CXR, COVID-19 testing, DuoNeb, magnesium, Solu-Medrol, admission Low concern for severe sepsis at this time, tachycardia and tachypnea likely from COPD/albuterol use Differential Diagnosis Differential diagnosis: Likely acute exacerbation of chronic obstructive airways disease, congestive heart failure, pneumonia and pleural effusion Medical Records Attestation: I reviewed the patient's medical records. Lab Data Attestation: I reviewed the patient's lab results. Result diagrams: 12/19/21 13:16 12/19/21 12:34 Labs: Lab Results 12/19/21 12/19/21 12/19/21 Range/Units 12:34 12:34 12:34 WBC (4.8-10.8) X10*3/uL RBC (4.20-5.50) X10*6/uL Hgb (12.0-16.0) g/dl Hct (37.0-47.0) % MCV (80.0-98.0) fL MCH (27.0-33.0) pg MCHC (31.0-35.0) g/dl RDW (11.0-16.0) % Plt Count (160-400) X10*3/uL MPV (9.4-12.3) fL Immature Gran % (Auto) (0.0-0.4) % Neut % (Auto) (45-73) % Lymph % (Auto) (20-40) % Valley % (Auto) (2-11) % Eos % (Auto) (0-4) % Baso % (Auto) (0-2) % Lymph # (Auto) (1.2-4.9) X10*3/uL Valley # (Auto) (0.1-1.2) X10*3/uL Eos # (Auto) (0.0-0.4) X10*3/uL Baso # (Auto) (0.0-0.2) X10*3/uL Abs Immat Gran (auto) (0.00-0.03) X10*3/uL Absolute Neuts (auto) (2.0-8.3) x10*3/uL Absolute Nucleated RBC (0.0-0.012) X10*3/uL Nucleated RBC % (auto) (0.0-0.2) /100WBC PT (9.9-13.0) SEC INR (0.9-1.1) Sodium 141 (135-145) mmol/L Potassium 3.4 (3.3-5.1) mmol/L Chloride 94 L (96-108) mmol/L Carbon Dioxide 33 H (22-29) mmol/L Anion Gap 17 (12-20) BUN 24 H (9-16) mg/dL Creatinine 1.00 (0.5-1.4) mg/dL Estim Creat Clear Calc 65.6 Estimated GFR 55 Random Glucose 113 (60-115) mg/dL Lactic Acid 1.4 (0.5-2.0) mmol/L Calcium 10.0 (8.4-10.2) mg/dL Magnesium 2.0 (1.6-2.6) mg/dL Total Bilirubin 0.9 (0.0-1.0) mg/dL Direct Bilirubin 0.3 (0.0-0.5) mg/dL AST 38 H (5-31) U/L ALT 51 H (0-31) U/L Alkaline Phosphatase 120 H D (39-117) U/L Troponin I High Sens 8.9 (<3.5-17.0) ng/L B-Natriuretic Peptide (<100) pg/mL Total Protein 7.1 (6.5-8.0) g/dL Albumin 4.0 (3.5-5.0) g/dL COVID-19 (QUYEN) (Negative) COVID-19 Clin Com 12/19/21 12/19/21 12/19/21 Range/Units 12:34 12:34 13:16 WBC 15.3 H (4.8-10.8) X10*3/uL RBC 4.35 (4.20-5.50) X10*6/uL Hgb 13.5 (12.0-16.0) g/dl Hct 41.3 (37.0-47.0) % MCV 94.9 (80.0-98.0) fL MCH 31.0 (27.0-33.0) pg MCHC 32.7 (31.0-35.0) g/dl RDW 13.4 (11.0-16.0) % Plt Count 322 (160-400) X10*3/uL MPV 9.2 L (9.4-12.3) fL Immature Gran % (Auto) 0.7 H (0.0-0.4) % Neut % (Auto) 73.9 H (45-73) % Lymph % (Auto) 17.7 L (20-40) % Valley % (Auto) 7.1 (2-11) % Eos % (Auto) 0.3 (0-4) % Baso % (Auto) 0.3 (0-2) % Lymph # (Auto) 2.7 (1.2-4.9) X10*3/uL Valley # (Auto) 1.1 (0.1-1.2) X10*3/uL Eos # (Auto) 0.0 (0.0-0.4) X10*3/uL Baso # (Auto) 0.0 (0.0-0.2) X10*3/uL Abs Immat Gran (auto) 0.11 H (0.00-0.03) X10*3/uL Absolute Neuts (auto) 11.3 H (2.0-8.3) x10*3/uL Absolute Nucleated RBC 0.000 (0.0-0.012) X10*3/uL Nucleated RBC % (auto) 0.0 (0.0-0.2) /100WBC PT (9.9-13.0) SEC INR (0.9-1.1) Sodium (135-145) mmol/L Potassium (3.3-5.1) mmol/L Chloride (96-108) mmol/L Carbon Dioxide (22-29) mmol/L Anion Gap (12-20) BUN (9-16) mg/dL Creatinine (0.5-1.4) mg/dL Estim Creat Clear Calc Estimated GFR Random Glucose (60-115) mg/dL Lactic Acid (0.5-2.0) mmol/L Calcium (8.4-10.2) mg/dL Magnesium (1.6-2.6) mg/dL Total Bilirubin (0.0-1.0) mg/dL Direct Bilirubin (0.0-0.5) mg/dL AST (5-31) U/L ALT (0-31) U/L Alkaline Phosphatase (39-117) U/L Troponin I High Sens (<3.5-17.0) ng/L B-Natriuretic Peptide 83 (<100) pg/mL Total Protein (6.5-8.0) g/dL Albumin (3.5-5.0) g/dL COVID-19 (QUYEN) Negative (Negative) COVID-19 Clin Com See Note 12/19/21 12/19/21 Range/Units 13:16 15:40 WBC (4.8-10.8) X10*3/uL RBC (4.20-5.50) X10*6/uL Hgb (12.0-16.0) g/dl Hct (37.0-47.0) % MCV (80.0-98.0) fL MCH (27.0-33.0) pg MCHC (31.0-35.0) g/dl RDW (11.0-16.0) % Plt Count (160-400) X10*3/uL MPV (9.4-12.3) fL Immature Gran % (Auto) (0.0-0.4) % Neut % (Auto) (45-73) % Lymph % (Auto) (20-40) % Valley % (Auto) (2-11) % Eos % (Auto) (0-4) % Baso % (Auto) (0-2) % Lymph # (Auto) (1.2-4.9) X10*3/uL Valley # (Auto) (0.1-1.2) X10*3/uL Eos # (Auto) (0.0-0.4) X10*3/uL Baso # (Auto) (0.0-0.2) X10*3/uL Abs Immat Gran (auto) (0.00-0.03) X10*3/uL Absolute Neuts (auto) (2.0-8.3) x10*3/uL Absolute Nucleated RBC (0.0-0.012) X10*3/uL Nucleated RBC % (auto) (0.0-0.2) /100WBC PT 32.3 H (9.9-13.0) SEC INR 2.8 H (0.9-1.1) Sodium (135-145) mmol/L Potassium (3.3-5.1) mmol/L Chloride (96-108) mmol/L Carbon Dioxide (22-29) mmol/L Anion Gap (12-20) BUN (9-16) mg/dL Creatinine (0.5-1.4) mg/dL Estim Creat Clear Calc Estimated GFR Random Glucose (60-115) mg/dL Lactic Acid (0.5-2.0) mmol/L Calcium (8.4-10.2) mg/dL Magnesium (1.6-2.6) mg/dL Total Bilirubin (0.0-1.0) mg/dL Direct Bilirubin (0.0-0.5) mg/dL AST (5-31) U/L ALT (0-31) U/L Alkaline Phosphatase (39-117) U/L Troponin I High Sens 7.8 (<3.5-17.0) ng/L B-Natriuretic Peptide (<100) pg/mL Total Protein (6.5-8.0) g/dL Albumin (3.5-5.0) g/dL COVID-19 (QUYEN) (Negative) COVID-19 Clin Com ECG Data Attestation: I personally reviewed and interpreted this ECG as follows: ECG interpretation date: 12/19/21 ECG interpretation time: 13:18 Interpretation: EKG normal sinus rhythm at a rate of 99. MT interval 190. QTC 495. No significant change when compared to priors. Artifact present. No STEMI Critical Care Time Critical Care Time Critical Care Time: Yes Total Critical Care Time: 40 Attestation: I have personally provided critical care time exclusive of time spent on separately billable procedures. Time includes review of lab data, radiology results, discussion with consultants, and monitoring for potential decompensation. Intervention performed as documented. Discharge Plan Discharge Clinical Impression: Acute exacerbation of chronic obstructive airways disease
[2021-12-19] MEDS: cefTRIAXone sodium 1 GM in 0.9 % Sodium Chloride 50 ML IV (14:54)
[2021-12-19] MEDS: Azithromycin 500 MG in 0.9 % Sodium Chloride 250 ML 125 MG IV (15:37)
[2021-12-19 16:05] LABS: Troponin-I High Sensitivity 7.8 ng/L (<3.5-17.0)
--- NOTE | 2021-12-19 16:21 | PM.IMHP ---
History of Present Illness Date of Service: 12/19/21 Chief Complaint: Shortness of breath 70-year-old female with a past medical history of aortic aneurysm, cardiomyopathy, COPD on 3L NC at night and chronic prednisone, HLD, was and CPAP, AFib on Coumadin, presenting to the ED complaining of worsening dyspnea x5 days with dry cough and wheezing.?ED workup consistant with RLL infiltrate Review of Systems Review of Systems: denies chest pain Admits to shortness of breath with minimal exertion Denies nausea vomiting diarrhea Denies fever and chills PMFSH Medical History Abdominal pain Aortic aneurysm Arthralgia Arthropathy of cervical spine Cardiomyopathy Chronic respiratory failure COPD (chronic obstructive pulmonary disease) COPD (chronic obstructive pulmonary disease) Hyperlipidemia NICM (nonischemic cardiomyopathy) CHRISTIANO on CPAP Paroxysmal A-fib Family History Father CHF (congestive heart failure) PNA (pneumonia) Dementia Diabetes HTN (hypertension) Family history of diabetes mellitus Mother CHF (congestive heart failure) MRSA (methicillin resistant Staphylococcus aureus) Son Afib Son Psoriasis Arthritis Daughter Hypothyroid Fibromyalgia Brother No problems noted. Brother No problems noted. Sister No problems noted. Surgical History History of bilateral cataract extraction History of esophagogastroduodenoscopy (EGD) Hx of cholecystectomy Hx of dilation and curettage Hx of hysterectomy Trigger finger of thumb Social History Housing: House Alcohol intake: current Alcohol intake frequency: holidays/special occasions only Alcohol type: beer and hard liquor Patient Tobacco Use Status: Former Tobacco user Years Smoked: 50+ years e-Cigarette/Vaping Use: Never Used Second Hand Smoke Exposure: No Use of substances other than those prescribed or required for medical reasons: Yes Substance Use Type: Marijuana Substance Use Type Other:: medical marijuana edibles, 5mg once daily for pain management Substance Use Frequency: Daily Last Used Substance: Days (ago) Advance Directives: No Advance Directives Information Provided: No service: No Current occupational status: retired Meds Allergies Allergy/AdvReac Type Severity Reaction Status Date / Time latex [LATEX] Allergy Intermediate RASH Verified 12/19/21 10:49 varenicline [From Chantix] Allergy Mild hives Verified 12/19/21 10:49 barium sulfate AdvReac Mild burn on Verified 12/19/21 10:49 face nicotine AdvReac Mild rash Verified 12/19/21 10:49 lisinopril AdvReac cough Verified 12/19/21 10:49 seasonal Allergy Mild seasonal Uncoded 12/19/21 10:49 allergies ACEI AdvReac Intermediate cough Uncoded 12/19/21 10:49 Active Medications: Current Medications Albuterol/Ipratropium (Albuterol/Iprat 2.5/0.5mg 3 Ml Ampul.Neb) 3 ml INHALE RBID ARTURO Amiodarone HCl (Amiodarone Hcl 200 Mg Tablet) 100 mg PO MoWeFr@0900 ARTURO Atorvastatin Calcium (Atorvastatin Calcium 40 Mg Tablet) 40 mg PO BEDTIME ARTURO Diltiazem HCl (Diltiazem Hcl Cd 120 Mg Cap.Er.Deg) 120 mg PO BID ARTURO; Protocol Furosemide (Furosemide 40 Mg Tablet) 80 mg PO DAILY ARTURO; Protocol Gabapentin (Gabapentin 400 Mg Capsule) 800 mg PO BID [facility] Azithromycin 500 mg/ Sodium (Chloride) 250 mls @ 125 mls/hr IV ONCE ONE Stop: 12/19/21 16:33 Last Admin: 12/19/21 15:37 Dose: 125 mls/hr Documented by: Ceftriaxone Sodium 1 gm/ (Sodium Chloride) 50 mls @ 100 mls/hr IV Q24H ARTURO Azithromycin 500 mg/ Sodium (Chloride) 250 mls @ 125 mls/hr IV Q24H [facility] Loratadine (Loratadine 10 Mg Tablet) 10 mg PO DAILY [facility] Methylprednisolone Sodium Succinate (Methylprednisolone Sod Succ 125 Mg/2 Ml Vial) 60 mg IVPUSH RQ6H ONE Stop: 12/19/21 16:14 Non-Formulary Medication (Budesonide) 0.5 mg INHALE BEDTIME [facility] Omeprazole (Omeprazole 20 Mg Capsule.) 20 mg PO DAILY [facility] Pharmacy Consult (Consult Rx Perform Med Rec) 1 each MISCELLANE ONCE PRN PRN Reason: Consult order Potassium Chloride (Potassium Chloride Er 20 Meq Tab.Er.Prt) 20 meq PO DAILY [facility] Sodium Chloride (0.9 % Sodium Chloride Flush 3 Ml Syringe) 3 ml IVFLUSH QSHIFT [facility] Tramadol HCl (Tramadol Hcl 50 Mg Tablet) 50 mg PO BEDTIME [facility] Warfarin Sodium (Warfarin Sodium 2.5 Mg Tablet) 2.5 mg PO MO [facility] Warfarin Sodium (Warfarin Sodium 5 Mg Tablet) 5 mg PO SUTUWETHFRSA [facility] Home Medications Medication Instructions Recorded Confirmed Last Taken Type cetirizine 10 mg tablet (Allergy 10 mg PO DAILY 11/15/20 12/19/21 12/19/21 History Relief (cetirizine)) mupirocin 2 % topical ointment 1 appl TOPICAL BID PRN g 12/05/21 12/19/21 Unknown History amiodarone 200 mg tablet 100 mg PO MOWEFR 12/19/21 12/19/21 12/17/21 History atorvastatin 40 mg tablet 40 mg PO BEDTIME 12/19/21 12/19/21 12/18/21 History budesonide 0.5 mg/2 mL suspension 0.5 mg INHALATION BEDTIME 12/19/21 12/19/21 12/18/21 History for nebulization furosemide 40 mg tablet 80 mg PO DAILY 12/19/21 12/19/21 12/18/21 History gabapentin 800 mg tablet 800 mg PO BID 12/19/21 12/19/21 12/19/21 History ipratropium 0.5 mg-albuterol 3 mg 3 ml INHALATION BID 12/19/21 12/19/21 12/18/21 History (2.5 mg base)/3 mL nebulization soln prednisone 1 mg tablet 4 mg PO DAILY 12/19/21 12/19/21 12/19/21 History tramadol 50 mg tablet 50 mg PO BEDTIME 12/19/21 12/19/21 Unknown History warfarin 5 mg tablet 2.5 mg PO MO 12/19/21 12/19/21 12/17/21 History warfarin 5 mg tablet 5 mg PO SUTUWETHFRSA 12/19/21 12/19/21 12/18/21 History Physical Exam Vital Signs and Narrative: Vital Signs: Last Vital Signs Temp 98.4 F 12/19/21 15:44 Pulse 122 H 12/19/21 15:44 Resp 17 12/19/21 15:44 BP 168/76 H 12/19/21 15:44 Pulse Ox 92 12/19/21 15:44 Oxygen Flow Rate 3 12/19/21 11:19 BMI result Body Mass Index 46.3 Const: Other: awake alert oriented x3 and no acute distress. Able to speak in short sentences Resp: Other: severely diminished all calrk with scattered expiratory wheezes throughout Cardio: Other: no S4; positive S1-S2; no S3 murmurs rubs or gallops GI: Other: obese nontender normoactive bowel sounds 4 quadrants Neuro: Other: cranial nerves 2-12 grossly intact as tested. Motor is 5/5 all extremities. Sensation is intact Extrem: Other: no edema Results Labs CBC and Chem 7: 12/19/21 13:16 12/19/21 12:34 Labs: Laboratory Results - last 24 hr 12/19/21 12/19/21 12/19/21 12:34 12:34 12:34 MCV MCH MCHC RDW Plt Count MPV Immature Gran % (Auto) Neut % (Auto) Lymph % (Auto) [place] % (Auto) Eos % (Auto) Baso % (Auto) Lymph # (Auto) [place] # (Auto) Eos # (Auto) Baso # (Auto) Abs Immat Gran (auto) Absolute Neuts (auto) Absolute Nucleated RBC Nucleated RBC % (auto) PT INR Anion Gap 17 Estim Creat Clear Calc 65.6 Estimated GFR 55 Random Glucose 113 Lactic Acid 1.4 Calcium 10.0 Magnesium 2.0 Total Bilirubin 0.9 Direct Bilirubin 0.3 AST 38 H ALT 51 H Alkaline Phosphatase 120 H D B-Natriuretic Peptide 83 Total Protein 7.1 Albumin 4.0 COVID-19 (QUYEN) COVID-19 Clin Com 12/19/21 12/19/21 12/19/21 12:34 13:16 13:16 MCV 94.9 MCH 31.0 MCHC 32.7 RDW 13.4 Plt Count 322 MPV 9.2 L Immature Gran % (Auto) 0.7 H Neut % (Auto) 73.9 H Lymph % (Auto) 17.7 L [place] % (Auto) 7.1 Eos % (Auto) 0.3 Baso % (Auto) 0.3 Lymph # (Auto) 2.7 [place] # (Auto) 1.1 Eos # (Auto) 0.0 Baso # (Auto) 0.0 Abs Immat Gran (auto) 0.11 H Absolute Neuts (auto) 11.3 H Absolute Nucleated RBC 0.000 Nucleated RBC % (auto) 0.0 PT 32.3 H INR 2.8 H Anion Gap Estim Creat Clear Calc Estimated GFR Random Glucose Lactic Acid Calcium Magnesium Total Bilirubin Direct Bilirubin AST ALT Alkaline Phosphatase B-Natriuretic Peptide Total Protein Albumin COVID-19 (QUYEN) Negative COVID-19 Clin Com See Note Imaging Radiologist's Impressions: Impressions Chest X-Ray 12/19/21 13:34 IMPRESSION: Atelectasis or small infiltrate at the right lung base. Assessment and Plan (1) Acute exacerbation of chronic obstructive airways disease: Status: Acute (2) Paroxysmal A-fib: Status: Acute Plan 70-year-old female with a past medical history of aortic aneurysm, cardiomyopathy, COPD on 3L NC at night and chronic prednisone, HLD, was and CPAP, AFib on Coumadin, presenting to the ED complaining of worsening dyspnea x5 days with dry cough and wheezing.?RLLinfiltrate on CXR 1.RLL infiltrate -IV CTX/Azithromycin -pulse dose steroids;hold orals -Titrate O2...2L@home - Pulmonary Consult(Jevon's pt) 2.Paroxysmal [id number] female with a past medical history of aortic aneurysm, cardiomyopathy, COPD on 3L NC at night and chronic prednisone, HLD, was and CPAP, AFib on Coumadin, presenting to the ED complaining of worsening dyspnea x5 days with dry cough and wheezing.? -continue warfarin..daily PT/INR -continue out patient rate control therapies..Tele full code Quality Stroke Does the patient have a stroke diagnosis?: No VTE Prior VTE?: No VTE Risk Level:: Medical - moderate - high VTE Device Contraindication: Treatment Not Indicated VTE Drug Contraindication: N/A - Med Ordered
[2021-12-19] MEDS: methylPREDNISolone Sod Succ 125 MG/2 ML VIAL 60 MG IVPUSH ×2 (17:17→23:45)
[2021-12-19] MEDS: Warfarin Sodium 5 MG TABLET PO (17:17)
--- NOTE | 2021-12-19 17:24 | PC.NURSE ---
Pt increased to 6lpm via nv s/p 2 hour long updrafts. Pt reports feeling okay, able to speak full sentences. Sat 91% on 6lpm, Dr Webber aware. Pt home 02 dependent on 3lpm at night but using more during day while not feeling well. LS tight, dim throughout
--- NOTE | 2021-12-19 18:32 | PC.NURSE ---
Pt arrived from ED, A&Ox3, c/o sore and dry throat, humidified O2 added to her oxygen which is at 6L NV with a sat of 93% at this time. Pt offers no complaints at this time, NAD, ST on the monitor in the 110's. Slightly HTN at this time but was as well in the main ED. Pt sitting at side of bed eating dinner at this time. Call fox within reach, will continue to monitor.
[2021-12-19] MEDS: dilTIAZem HCL CD 120 MG CAP.ER.DEG PO (20:54)
[2021-12-19] MEDS: Atorvastatin Calcium 40 MG TABLET PO (20:55)
[2021-12-19] MEDS: Gabapentin 400 MG CAPSULE 800 MG PO (20:55)
[2021-12-19] MEDS: traMADoL HCL 50 MG TABLET PO (20:55)
[2021-12-19] MEDS: 0.9 % Sodium Chloride Flush 3 ML SYRINGE IVFLUSH (23:46)
[2021-12-20] VITALS (9 sets, daily range): BP systolic 140–160; BP diastolic 65–81; PULSE 85–94; RESP 13–24; TEMP 36.5–36.8; O2SAT 90–95
[2021-12-20] MEDS: Acetaminophen 325 MG TABLET 650 MG PO ×2 (00:38→09:36)
[2021-12-20] MEDS: Omeprazole 20 MG CAPSULE.DR PO (05:52)
[2021-12-20] MEDS: methylPREDNISolone Sod Succ 125 MG/2 ML VIAL 60 MG IVPUSH ×4 (05:52→23:39)
[2021-12-20 06:41] LABS: Hematocrit 39.7 % (37.0-47.0); Hemoglobin 13.1 g/dl (12.0-16.0); Mean Corpuscular Hemoglobin 31.2 pg (27.0-33.0); Mean Corpuscular Volume 94.5 fL (80.0-98.0); Mean Platelet Volume 9.3 fL (9.4-12.3); Platelet Count 321 X10*3/uL (160-400); Red Cell Distribution Width 13.5 % (11.0-16.0)
[2021-12-20 06:54] LABS: INTERNATIONAL NORM RATIO 2.4 (0.9-1.1); Prothrombin Time 28.1 SEC (9.9-13.0)
[2021-12-20] MEDS: Albuterol/Iprat 2.5/0.5MG 3 ML AMPUL.NEB INHALE ×2 (08:14→19:53)
[2021-12-20] MEDS: Loratadine 10 MG TABLET PO (09:35)
[2021-12-20] MEDS: dilTIAZem HCL CD 120 MG CAP.ER.DEG PO ×2 (09:35→20:32)
[2021-12-20] MEDS: Gabapentin 400 MG CAPSULE 800 MG PO ×2 (09:36→20:32)
[2021-12-20] MEDS: Furosemide 40 MG TABLET 80 MG PO (09:36)
[2021-12-20] MEDS: Potassium Chloride ER 20 MEQ TAB.ER.PRT PO (09:36)
--- NOTE | 2021-12-20 09:47 | P.CDIC_ITS ---
CDI Concurrent Query Documentation Clarification: PHYSICIAN'S DOCUMENTATION REQUEST Date of Query: 12/20/21 0948 Patient Name: Huma Mukherjee Admit Date: 12/19/21 Dear Doctor, A review of the medical record indicates additional documentation may be needed. Please review below and update the documentation accordingly. Risk Factors/Clinical Indicators/Treatments ED: patient with chronic respiratory failure on home O2 3-4 liters NC Labored breathing, wheezing, expiratory wheezing, pursed lips, worsening dyspnea, patient satting at 89-91% placed on 5 liters NC with RR 23. If possible, please further clarify the type and acuity of respiratory failure: Type: * Chronic respiratory failure * Acute on chronic respiratory failure * Other (please specify) * Unable to determine Use of terms such as suspected, likely, concern for, or probable (associated with a specific diagnosis that is being evaluated, monitored, or treated as if it exists) are acceptable and can be coded in the inpatient setting, when documented at the time of discharge. Thank you, [place] Parker [facility], CDIS Extension: [phone] Please use your independent medical judgment in providing your response. THIS QUERY IS PART OF THE PERMANENT MEDICAL RECORD Provider Response: Other Other Diagnosis: unable to determine
--- NOTE | 2021-12-20 10:17 | MHC.CM.PN ---
PT REPORTS SHE LIVES WITH HER AND DAUGHTER AND IS INDEPENDENT WITH CARE. PT HAS NO SERVICES AND REPORTS SHE DOES NOT FEEL SHE WILL NEED THEM. PT HAS BEEN ON HOME OXYGEN SINCE 2019 AND USES A ROLLATOR TO AMBULATE. PT CONFIRMS HER PCP IS EMIR FISH. PT REPORTS SHE HAS A HCP WITH HER FINGER COBBLER, COPY REQUESTED. PT REPORTS SHE IS VACCINATED AGAINST COVID-19, SHE HAD MODERNA X 2 AND A PFIZER BOOSTER. [facility]MM DELIVERED, COPY SENT TO [facility] CURRENT DC PLAN IS HOME WITH NO SERVICES. PT WILL ARRANGE TRANSPORTATION
[2021-12-20] MEDS: iohexoL 350 MG/ML 100 ML INFUS..BTL IV (11:33)
[2021-12-20] MEDS: Piperacillin Sodium/Tazobactam 4.5 GM in 0.9 % Sodium Chloride 100 ML IV ×3 (11:49→23:38)
--- NOTE | 2021-12-20 12:03 | PC.NURSE ---
Pt is very pleasant. Pt resting in recliner. Medicated per DEC. pt went to CT with no issues. Remains on 4-5L O2 via Nasal cannula, tolerating well. Pt is an assist of 1 to the bathroom. pt c/o headache this AM. pt provided with tylenol per request. Pt given coffee to help with headache after she got back from CT. Belongings within reach at this time along with call fox.
--- NOTE | 2021-12-20 12:59 | PM.CNPUL ---
History of Present Illness History of Present Illness Consult date: 12/20/21 Chief complaint: RLL pneumonia Narrative: This is an inpatient pulmonary consultation. The patient is a 70-year-old female with a past medical history of aortic aneurysm, cardiomyopathy, COPD on 3L NC at night and chronic prednisone, HLD, was and CPAP, AFib on Coumadin, presenting to the ED complaining of worsening dyspnea x5 days with dry cough and wheezing.?ED workup consistant with RLL infiltrate. The patient placed on antibiotics in addition to steroids due to her wheezing. She is feeling a little better still requiring up to 5 L nasal cannula to maintain a pulse ox above 90%. She has been taking her Coumadin regularly. INR was therapeutic. Review of Systems Review of Systems: Constitutional: No Fever, No Chills, No Fatigue, No Malaise ENT/Mouth: No Ear Pain, No Nasal Congestion, No Hoarseness, No sore throat, No Swallowing Difficulty Eyes: No Eye Pain, No Swelling, No Redness, No Discharge, No Vision Changes Cardiovascular: No Chest Pain, + SOB, No Dyspnea on Exertion, No Orthopnea, +Chronic Edema, No Palpitations Respiratory: + Cough, No Sputum, + Wheezing, No Smoke Exposure, + Dyspnea Gastrointestinal: No Nausea, No Vomiting, No Diarrhea, No Constipation, No Abdominal pain Genitourinary: No Dysuria, No Urinary Frequency, No Hematuria, No Flank Pain Musculoskeletal: No joint pain, No Myalgias, No Joint Swelling Skin: No Skin Lesions, No rash Neuro: No Weakness, No Numbness, No Dizziness, No Headache Yes all other systems are reviewed and are negative [facility] Past Medical History Medical History (Updated 12/20/21 @ 13:02 by Jero Corona MD) Abdominal pain Acute and chronic respiratory failure Aortic aneurysm Arthralgia Arthropathy of cervical spine Cardiomyopathy Chronic respiratory failure COPD (chronic obstructive pulmonary disease) COPD (chronic obstructive pulmonary disease) Hyperlipidemia NICM (nonischemic cardiomyopathy) CHRISTIANO on CPAP Paroxysmal A-fib Family History Family History Father CHF (congestive heart failure) PNA (pneumonia) Dementia Diabetes HTN (hypertension) Family history of diabetes mellitus Mother CHF (congestive heart failure) MRSA (methicillin resistant Staphylococcus aureus) Son Afib Son Psoriasis Arthritis Daughter Hypothyroid Fibromyalgia Brother No problems noted. Brother No problems noted. Sister No problems noted. Surgical History Surgical History History of bilateral cataract extraction History of esophagogastroduodenoscopy (EGD) Hx of cholecystectomy Hx of dilation and curettage Hx of hysterectomy Trigger finger of thumb Social History Social History Housing: House Alcohol intake: current Alcohol intake frequency: holidays/special occasions only Alcohol type: beer and hard liquor Patient Tobacco Use Status: Former Tobacco user Years Smoked: 50+ years e-Cigarette/Vaping Use: Never Used Second Hand Smoke Exposure: No Use of substances other than those prescribed or required for medical reasons: Yes Substance Use Type: Marijuana Substance Use Type Other:: medical marijuana edibles, 5mg once daily for pain management Substance Use Frequency: Daily Last Used Substance: Days (ago) Advance Directives: No Advance Directives Information Provided: No service: No Current occupational status: retired Meds Allergies Allergy/AdvReac Type Severity Reaction Status Date / Time latex [LATEX] Allergy Intermediate RASH Verified 12/19/21 10:49 varenicline [From Chantix] Allergy Mild hives Verified 12/19/21 10:49 barium sulfate AdvReac Mild burn on Verified 12/19/21 10:49 face nicotine AdvReac Mild rash Verified 12/19/21 10:49 lisinopril AdvReac cough Verified 12/19/21 10:49 seasonal Allergy Mild seasonal Uncoded 12/19/21 10:49 allergies ACEI AdvReac Intermediate cough Uncoded 12/19/21 10:49 Active Medications: Current Medications Acetaminophen (Acetaminophen 325 Mg Tablet) 650 mg PO Q6H PRN PRN Reason: Pain, Mild (Pain Scale 1-3) Last Admin: 12/20/21 09:36 Dose: 650 mg Documented by: Albuterol/Ipratropium (Albuterol/Iprat 2.5/0.5mg 3 Ml Ampul.Neb) 3 ml INHALE RBID [facility] Last Admin: 12/20/21 08:14 Dose: 3 ml Documented by: Amiodarone HCl (Amiodarone Hcl 200 Mg Tablet) 100 mg PO MoWeFr@0900 [facility] Atorvastatin Calcium (Atorvastatin Calcium 40 Mg Tablet) 40 mg PO BEDTIME [facility] Last Admin: 12/19/21 20:55 Dose: 40 mg Documented by: Diltiazem HCl (Diltiazem Hcl Cd 120 Mg Cap.Er.Deg) 120 mg PO BID [facility]; Protocol Last Admin: 12/20/21 09:35 Dose: 120 mg Documented by: Furosemide (Furosemide 40 Mg Tablet) 80 mg PO DAILY [facility]; Protocol Last Admin: 12/20/21 09:36 Dose: 80 mg Documented by: Gabapentin (Gabapentin 400 Mg Capsule) 800 mg PO BID [facility] Last Admin: 12/20/21 09:36 Dose: 800 mg Documented by: Piperacillin Sod/Tazobactam (Sod 4.5 gm/ Sodium Chloride) 100 mls @ 200 mls/hr IV Q6H [facility] Last Infusion: 12/20/21 12:49 Dose: Infused Documented by: Loratadine (Loratadine 10 Mg Tablet) 10 mg PO DAILY [facility] Last Admin: 12/20/21 09:35 Dose: 10 mg Documented by: Methylprednisolone Sodium Succinate (Methylprednisolone Sod Succ 125 Mg/2 Ml Vial) 60 mg IVPUSH RQ6H [facility] Last Admin: 12/20/21 11:36 Dose: 60 mg Documented by: Non-Formulary Medication (Budesonide) 0.5 mg INHALE BEDTIME [facility] Omeprazole (Omeprazole 20 Mg Capsule.Dr) 20 mg PO DAILY@0630 [facility] Last Admin: 12/20/21 05:52 Dose: 20 mg Documented by: Pharmacy Consult (Consult Rx Perform Med Rec) 1 each MISCELLANE ONCE PRN PRN Reason: Consult order Potassium Chloride (Potassium Chloride Er 20 Meq Tab.Er.Prt) 20 meq PO DAILY [facility] Last Admin: 12/20/21 09:36 Dose: 20 meq Documented by: Sodium Chloride (0.9 % Sodium Chloride Flush 3 Ml Syringe) 3 ml IVFLUSH QSHIFT [facility] Last Admin: 12/20/21 07:34 Dose: Not Given Documented by: Tramadol HCl (Tramadol Hcl 50 Mg Tablet) 50 mg PO BEDTIME [facility] Last Admin: 12/19/21 20:55 Dose: 50 mg Documented by: Warfarin Sodium (Warfarin Sodium 2.5 Mg Tablet) 2.5 mg PO Mo@1800 [facility] Warfarin Sodium (Warfarin Sodium 5 Mg Tablet) 5 mg PO SuTuWeThFrSa@1800 [facility] Last Admin: 12/19/21 17:17 Dose: 5 mg Documented by: Home Medications Medication Instructions Recorded Confirmed Last Taken Type cetirizine 10 mg tablet (Allergy 10 mg PO DAILY 11/15/20 12/19/21 12/19/21 History Relief (cetirizine)) mupirocin 2 % topical ointment 1 appl TOPICAL BID PRN g 12/05/21 12/19/21 Unknown History amiodarone 200 mg tablet 100 mg PO MOWEFR 12/19/21 12/19/21 12/17/21 History atorvastatin 40 mg tablet 40 mg PO BEDTIME 12/19/21 12/19/21 12/18/21 History budesonide 0.5 mg/2 mL suspension 0.5 mg INHALATION BEDTIME 12/19/21 12/19/21 12/18/21 History for nebulization furosemide 40 mg tablet 80 mg PO DAILY 12/19/21 12/19/21 12/18/21 History gabapentin 800 mg tablet 800 mg PO BID 12/19/21 12/19/21 12/19/21 History ipratropium 0.5 mg-albuterol 3 mg 3 ml INHALATION BID 12/19/21 12/19/21 12/18/21 History (2.5 mg base)/3 mL nebulization soln prednisone 1 mg tablet 4 mg PO DAILY 12/19/21 12/19/21 12/19/21 History tramadol 50 mg tablet 50 mg PO BEDTIME 12/19/21 12/19/21 Unknown History warfarin 5 mg tablet 2.5 mg PO MO 12/19/21 12/19/21 12/17/21 History warfarin 5 mg tablet 5 mg PO SUTUWETHFRSA 12/19/21 12/19/21 12/18/21 History Physical Exam Vital Signs: Vital Signs: Last Vital Signs Temp 97.8 F 12/19/21 22:10 Pulse 89 12/20/21 09:35 Resp 20 12/20/21 09:35 BP 140/65 H 12/20/21 09:35 Pulse Ox 90 L 12/20/21 09:35 Oxygen Flow Rate 5 12/20/21 04:00 BMI result Body Mass Index 46.3 Const: General: alert Neck: Neck: Yes normal visual inspection, Yes full ROM and Yes no lymphadenopathy Chest: Chest palpation & inspection: normal inspection of the chest Resp: Auscultation: no crackles, no rales, no rhonchi, wheezes and diminished lung sounds Cardio: Rate: regular rate Rhythm: regular rhythm Heart sounds: S1 normal heart sound present and S2 normal heart sound present GI: Palpation (GI): Soft to palpation and nontender Auscultation: normal bowel sounds Skin: General skin exam: rashes and/or lesions noted Results Laboratory Findings CBC and BMP: 12/20/21 06:29 12/19/21 12:34 ABG, PT/INR, D-dimer: PT/INR, D-dimer PT 28.1 SEC (9.9-13.0) H 12/20/21 06:29 INR 2.4 (0.9-1.1) H 12/20/21 06:29 Abnormal lab findings: Abnormal Labs 12/19/21 12/19/21 12/19/21 12:34 13:16 13:16 WBC 15.3 H MPV 9.2 L Immature Gran % (Auto) 0.7 H Neut % (Auto) 73.9 H Lymph % (Auto) 17.7 L Abs Immat Gran (auto) 0.11 H Absolute Neuts (auto) 11.3 H PT 32.3 H INR 2.8 H Chloride 94 L Carbon Dioxide 33 H BUN 24 H AST 38 H ALT 51 H Alkaline Phosphatase 120 H D 12/20/21 12/20/21 06:29 06:29 WBC 16.0 H MPV 9.3 L Immature Gran % (Auto) Neut % (Auto) Lymph % (Auto) Abs Immat Gran (auto) Absolute Neuts (auto) PT 28.1 H INR 2.4 H Chloride Carbon Dioxide BUN AST ALT Alkaline Phosphatase Assessment and Plan (1) Acute exacerbation of chronic obstructive airways disease: Status: Acute (2) CHRISTIANO on CPAP: Status: Acute (3) Acute and chronic respiratory failure: Status: Acute (4) RLL pneumonia: Status: Acute Plan Will change nebulized therapy to Xopenex to minimize adverse effects. She is getting significant tremulousness and also muscle spasms from the albuterol therapy Continue Solu-Medrol Continue Zosyn until we can reassess right lower lobe opacity on the CT scan Awaiting CT scan of the chest Should also rule out for any myocardial injury with her history of heart disease Continue CPAP at night Continue to follow Procedures Date of Service Date of Service: 12/20/21
--- NOTE | 2021-12-20 13:59 | P.PNIM_ITS ---
Subjective Subjective Date of Service: 12/20/21 Interval History: no acute issues overnight. Breathing somewhat improved per patient Review of Systems denies chest pain Admits to shortness of breath with minimal movement Denies nausea diarrhea Physical Exam Vital Signs: Vital Signs: Last Vital Signs Temp 97.8 F 12/19/21 22:10 Pulse 89 12/20/21 09:35 Resp 20 12/20/21 09:35 BP 140/65 H 12/20/21 09:35 Pulse Ox 90 L 12/20/21 09:35 Oxygen Flow Rate 5 12/20/21 04:00 BMI result Body Mass Index 46.3 Const: Other: awake alert oriented x3 no acute distress Resp: Other: diminished all feels ho Cardio: Other: no S4; positive S1-S2; no S3 murmurs or gallops GI: Other: soft nontender nondistended with normoac Extrem: Other: no edema Objective Data Active Medications Acetaminophen (Acetaminophen 325 Mg Tablet) 650 mg PO Q6H PRN PRN Reason: Pain, Mild (Pain Scale 1-3) Last Admin: 12/20/21 09:36 Dose: 650 mg Documented by: BETH Albuterol/Ipratropium (Albuterol/Iprat 2.5/0.5mg 3 Ml Ampul.Neb) 3 ml INHALE RBID [facility] Last Admin: 12/20/21 08:14 Dose: 3 ml Documented by: RITIKA Amiodarone HCl (Amiodarone Hcl 200 Mg Tablet) 100 mg PO MoWeFr@0900 [facility] Atorvastatin Calcium (Atorvastatin Calcium 40 Mg Tablet) 40 mg PO BEDTIME [facility] Last Admin: 12/19/21 20:55 Dose: 40 mg Documented by: FREDO Diltiazem HCl (Diltiazem Hcl Cd 120 Mg Cap.Er.Deg) 120 mg PO BID [facility]; Protocol Last Admin: 12/20/21 09:35 Dose: 120 mg Documented by: BETH Furosemide (Furosemide 40 Mg Tablet) 80 mg PO DAILY [facility]; Protocol Last Admin: 12/20/21 09:36 Dose: 80 mg Documented by: BETH Gabapentin (Gabapentin 400 Mg Capsule) 800 mg PO BID [facility] Last Admin: 12/20/21 09:36 Dose: 800 mg Documented by: BETH Piperacillin Sod/Tazobactam (Sod 4.5 gm/ Sodium Chloride) 100 mls @ 200 mls/hr IV Q6H [facility] Last Infusion: 12/20/21 12:49 Dose: 0 mls/hr Documented by: BETH Loratadine (Loratadine 10 Mg Tablet) 10 mg PO DAILY [facility] Last Admin: 12/20/21 09:35 Dose: 10 mg Documented by: BETH Methylprednisolone Sodium Succinate (Methylprednisolone Sod Succ 125 Mg/2 Ml Vial) 60 mg IVPUSH RQ6H [facility] Last Admin: 12/20/21 11:36 Dose: 60 mg Documented by: BETH Non-Formulary Medication (Budesonide) 0.5 mg INHALE BEDTIME [facility] Omeprazole (Omeprazole 20 Mg Capsule.Dr) 20 mg PO DAILY@0630 [facility] Last Admin: 12/20/21 05:52 Dose: 20 mg Documented by: AIDAN Pharmacy Consult (Consult Rx Perform Med Rec) 1 each MISCELLANE ONCE PRN PRN Reason: Consult order Potassium Chloride (Potassium Chloride Er 20 Meq Tab.Er.Prt) 20 meq PO DAILY [facility] Last Admin: 12/20/21 09:36 Dose: 20 meq Documented by: BETH Sodium Chloride (0.9 % Sodium Chloride Flush 3 Ml Syringe) 3 ml IVFLUSH QSHIFT [facility] Last Admin: 12/20/21 07:34 Dose: Not Given Documented by: BETH Non-Admin Reason: Med Not Available Tramadol HCl (Tramadol Hcl 50 Mg Tablet) 50 mg PO BEDTIME [facility] Last Admin: 12/19/21 20:55 Dose: 50 mg Documented by: FREDO Warfarin Sodium (Warfarin Sodium 2.5 Mg Tablet) 2.5 mg PO Mo@1800 [facility] Warfarin Sodium (Warfarin Sodium 5 Mg Tablet) 5 mg PO SuTuWeThFrSa@1800 [facility] Last Admin: 12/19/21 17:17 Dose: 5 mg Documented by: AMANDEEP Labs CBC & Chem 7: 12/20/21 06:29 12/19/21 12:34 Labs: Laboratory Results - last 24 hr 12/20/21 12/20/21 06:29 06:29 MCV 94.5 MCH 31.2 MCHC 33.0 RDW 13.5 Plt Count 321 MPV 9.3 L Absolute Nucleated RBC 0.000 Nucleated RBC % (auto) 0.0 PT 28.1 H INR 2.4 H Assessment and Plan (1) RLL pneumonia: Status: Acute Plan 70-year-old female with a past medical history of aortic aneurysm, cardiomyopathy, COPD on 3L NC at night and chronic prednisone, HLD, was and CPAP, AFib on Coumadin, presenting to the ED complaining of worsening dyspnea x5 days with dry cough and wheezing.?RLLinfiltrate on CXR 1.RLL infiltrate -IV Zosyn -pulse dose steroids;hold orals -Titrate O2...2L@home - CTA of chest to rule out pulmonary embolism 2.Paroxysmal [id number] female with a past medical history of aortic aneurysm, cardiomyopathy, COPD on 3L NC at night and chronic prednisone, HLD, was and CPAP, AFib on Coumadin, presenting to the ED complaining of worsening dyspnea x5 days with dry cough and wheezing.? -continue warfarin..daily PT/INR -continue out patient rate control therapies..Tele full code Quality Stroke Does the patient have a stroke diagnosis?: No VTE Prior VTE?: No VTE Risk Level:: Medical - moderate - high VTE Device Contraindication: Treatment Not Indicated VTE Drug Contraindication: N/A - Med Ordered
[2021-12-20] MEDS: Warfarin Sodium 5 MG TABLET PO (17:21)
[2021-12-20] MEDS: Atorvastatin Calcium 40 MG TABLET PO (20:32)
[2021-12-20] MEDS: traMADoL HCL 50 MG TABLET PO (20:32)
[2021-12-20] MEDS: 0.9 % Sodium Chloride Flush 3 ML SYRINGE IVFLUSH (23:39)
[2021-12-21] VITALS (8 sets, daily range): BP systolic 147–170; BP diastolic 67–87; PULSE 67–102; RESP 18–20; TEMP 36.2–37.1; O2SAT 93–98
--- NOTE | 2021-12-21 01:31 | PC.NURSE ---
PATIENT REPORT GIVEN TO [facility] RN FOR PENDING TRANSFER FROM ED OVERFLOW TO [facility] ROOM 467. PATIENT AWARE OF ROOM READY TRANSFER, VSS, DENIES PAIN, WEARING CPAP WITH 6 LITERS OXYGEN, NO DISTRESS. CAN STACKER IN USE.
--- NOTE | 2021-12-21 01:42 | PC.NURSE ---
PATIENT TO [facility] VIA BED, MONITOR, AND OXYGEN WITH 2 ED TECHS AT THIS TIME. PT ALERT, AWAKE, AND CO-OP, AT THIS TIME 0143, [facility] RN ALERTED TO TRANSFER.
[2021-12-21] MEDS: Piperacillin Sodium/Tazobactam 4.5 GM in 0.9 % Sodium Chloride 100 ML IV ×4 (06:08→22:43)
[2021-12-21] MEDS: methylPREDNISolone Sod Succ 125 MG/2 ML VIAL 60 MG IVPUSH ×4 (06:09→22:44)
[2021-12-21] MEDS: Omeprazole 20 MG CAPSULE.DR PO (06:09)
--- NOTE | 2021-12-21 08:38 | P.CDIC_ITS ---
CDI Concurrent Query Documentation Clarification: PHYSICIAN'S DOCUMENTATION REQUEST Date of Query: 12/21/21 0838 Patient Name: Huma Mukherjee Admit Date: 12/19/21 Dear Doctor, A review of the medical record indicates additional documentation may be needed. Please review below and update the documentation accordingly. Risk Factors/Clinical Indicators/Treatments Body Mass index: 46.3 5' 4 If possible, please provide an associated diagnosis related to the abnormal BMI, such as: For a BMI >= 40: * Overweight * Obesity * Due to excess calories * Drug induced * Due to other cause * Severe or Morbid Obesity Or: * BMI is not significant * Other (please specify) * Unable to determine Use of terms such as suspected, likely, concern for, or probable (associated with a specific diagnosis that is being evaluated, monitored, or treated as if it exists) are acceptable and can be coded in the inpatient setting, when documented at the time of discharge. Thank you, [place] Parker [facility], CDIS Extension: [phone] Please use your independent medical judgment in providing your response. 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
[2021-12-21] MEDS: Albuterol/Iprat 2.5/0.5MG 3 ML AMPUL.NEB INHALE ×2 (08:53→20:33)
[2021-12-21] MEDS: Gabapentin 400 MG CAPSULE 800 MG PO ×2 (08:58→20:42)
[2021-12-21] MEDS: Amiodarone HCL 200 MG TABLET 100 MG PO (08:58)
[2021-12-21] MEDS: 0.9 % Sodium Chloride Flush 3 ML SYRINGE IVFLUSH ×3 (08:58→20:42)
[2021-12-21] MEDS: Loratadine 10 MG TABLET PO (09:01)
[2021-12-21] MEDS: Furosemide 40 MG TABLET 80 MG PO (09:01)
[2021-12-21] MEDS: Potassium Chloride ER 20 MEQ TAB.ER.PRT PO (09:01)
[2021-12-21] MEDS: dilTIAZem HCL CD 120 MG CAP.ER.DEG PO ×2 (09:01→20:42)
[2021-12-21 09:16] LABS: Prothrombin Time 35.2 SEC (9.9-13.0)
--- NOTE | 2021-12-21 10:42 | PM.PNPUL ---
Subjective Subjective Date of Service: 12/21/21 Interval history: The patient was seen on exam. The patient is feeling a little better. She did have a CTA yesterday demonstrating no evidence of any pulmonary emboli. She also had evidence of atelectasis and no significant airspace disease. Her wheezing is improved. She still has significant lower extremity edema. Her oxygen requirements have decreased some. She is having hard time with her CPAP mask. I will provide with a mask that she can use tonight. Objective Data Labs CBC & Chem 7: 12/20/21 06:29 12/19/21 12:34 Labs: Laboratory Results - last 24 hr 12/21/21 09:01 PT 35.2 H INR 3.0 H Microbiology Microbiology Results: Microbiology 12/19/21 13:16 Blood - Venous Blood Culture - Preliminary No growth after 24 hours. 12/19/21 12:34 Blood - Venous Blood Culture - Preliminary No growth after 24 hours. Review of Systems Review of Systems Constitutional: No Fever, No Chills, No Fatigue, No Malaise ENT/Mouth: No Ear Pain, No Nasal Congestion, No Hoarseness, No sore throat, No Swallowing Difficulty Eyes: No Eye Pain, No Swelling, No Redness, No Discharge, No Vision Changes Cardiovascular: No Chest Pain, + SOB, No Dyspnea on Exertion, No Orthopnea, +Chronic Edema, No Palpitations Respiratory: + Cough, No Sputum, + Wheezing, No Smoke Exposure, + Dyspnea Gastrointestinal: No Nausea, No Vomiting, No Diarrhea, No Constipation, No Abdominal pain Genitourinary: No Dysuria, No Urinary Frequency, No Hematuria, No Flank Pain Musculoskeletal: No joint pain, No Myalgias, No Joint Swelling Skin: No Skin Lesions, No rash Neuro: No Weakness, No Numbness, No Dizziness, No Headache Yes all other systems are reviewed and are negative Physical Exam Vital Signs: Vital Signs: Last Vital Signs Temp 97.3 F 12/21/21 07:16 Pulse 67 12/21/21 08:57 Resp 18 12/21/21 08:57 BP 169/80 H 12/21/21 07:16 Pulse Ox 93 12/21/21 07:16 Oxygen Flow Rate 5 12/21/21 04:00 BMI result Body Mass Index 46.3 Const: General: alert Neck: Neck: Yes normal visual inspection, Yes full ROM and Yes no lymphadenopathy Chest: Chest palpation & inspection: normal inspection of the chest Resp: Auscultation: diminished lung sounds Cardio: Rate: regular rate Rhythm: regular rhythm Heart sounds: S1 normal heart sound present and S2 normal heart sound present GI: Palpation (GI): Soft to palpation and nontender Auscultation: normal bowel sounds Skin: General skin exam: rashes and/or lesions noted Extrem: General: Yes edema Procedures Date of Service Date of Service: 12/21/21 Assessment and Plan Assessment and plan (1) Acute and chronic respiratory failure: Status: Acute (2) Acute exacerbation of chronic obstructive airways disease: Status: Acute (3) Atelectasis: Status: Acute Plan No evidence of pneumonia. Okay to deescalate antibiotics IV Lasix x1 to help with volume overload status. The patient needs aggressive diuresis in order to help with her respiratory capacity Continue Solu-Medrol Continue oxygen supplementation to maintain a pulse ox above 90% Needs to continue using CPAP at nighttime will provide her with the different mask in order for her to be able to tolerated better Disposition likely able to go home by tomorrow if still doing well Time Spent With Patient Time: Total time spent is greater than 50% in coordination of care (as documented) at patient's floor/unit and/or counseling patient: Time with patient: 15 - 24 minutes Progress Note: Quality Stroke Does the patient have a stroke diagnosis?: No
[2021-12-21] MEDS: Furosemide 40 MG/4 ML VIAL IVPUSH (10:59)
--- NOTE | 2021-12-21 14:46 | P.PNIM_ITS ---
Subjective Subjective Date of Service: 12/21/21 Interval History: no acute issues overnight. Breathing somewhat improved per patient Review of Systems denies chest pain Admits to shortness of breath with minimal movement Denies nausea diarrhea Physical Exam Vital Signs: Vital Signs: Last Vital Signs Temp 97.8 F 12/21/21 11:11 Pulse 91 12/21/21 11:11 Resp 18 12/21/21 11:11 BP 170/87 H 12/21/21 11:11 Pulse Ox 95 12/21/21 11:11 Oxygen Flow Rate 5 12/21/21 04:00 BMI result Body Mass Index 46.3 Const: Other: awake alert oriented x3 no acute distress Resp: Other: diminished all feels ho Cardio: Other: no S4; positive S1-S2; no S3 murmurs or gallops GI: Other: soft nontender nondistended with normoac Neuro: Other: cranial nerves 2-12 grossly intact as tested. Motor is 5/5 all extremities. Sensation is intact Extrem: Other: no edema Objective Data Active Medications Acetaminophen (Acetaminophen 325 Mg Tablet) 650 mg PO Q6H PRN PRN Reason: Pain, Mild (Pain Scale 1-3) Last Admin: 12/20/21 09:36 Dose: 650 mg Documented by: BETH Albuterol/Ipratropium (Albuterol/Iprat 2.5/0.5mg 3 Ml Ampul.Neb) 3 ml INHALE RBID [facility] Last Admin: 12/21/21 08:53 Dose: 3 ml Documented by: JOHANNA Amiodarone HCl (Amiodarone Hcl 200 Mg Tablet) 100 mg PO MoWeFr@0900 [facility] Last Admin: 12/21/21 08:58 Dose: 100 mg Documented by: BUD Atorvastatin Calcium (Atorvastatin Calcium 40 Mg Tablet) 40 mg PO BEDTIME [facility] Last Admin: 12/20/21 20:32 Dose: 40 mg Documented by: FREDO Diltiazem HCl (Diltiazem Hcl Cd 120 Mg Cap.Er.Deg) 120 mg PO BID [facility]; Protocol Last Admin: 12/21/21 09:01 Dose: 120 mg Documented by: BUD Furosemide (Furosemide 40 Mg Tablet) 80 mg PO DAILY [facility]; Protocol Last Admin: 12/21/21 09:01 Dose: 80 mg Documented by: BUD Gabapentin (Gabapentin 400 Mg Capsule) 800 mg PO BID [facility] Last Admin: 12/21/21 08:58 Dose: 800 mg Documented by: BUD Piperacillin Sod/Tazobactam (Sod 4.5 gm/ Sodium Chloride) 100 mls @ 200 mls/hr IV Q6H [facility] Last Infusion: 12/21/21 11:58 Dose: 0 mls/hr Documented by: BUD Loratadine (Loratadine 10 Mg Tablet) 10 mg PO DAILY [facility] Last Admin: 12/21/21 09:01 Dose: 10 mg Documented by: BUD Methylprednisolone Sodium Succinate (Methylprednisolone Sod Succ 125 Mg/2 Ml Vial) 60 mg IVPUSH RQ6H [facility] Last Admin: 12/21/21 10:56 Dose: 60 mg Documented by: BUD Omeprazole (Omeprazole 20 Mg Capsule.) 20 mg PO DAILY@0630 [facility] Last Admin: 12/21/21 06:09 Dose: 20 mg Documented by: JOSE Pharmacy Consult (Consult Rx Perform Med Rec) 1 each MISCELLANE ONCE PRN PRN Reason: Consult order Potassium Chloride (Potassium Chloride Er 20 Meq Tab.Er.Prt) 20 meq PO DAILY [facility] Last Admin: 12/21/21 09:01 Dose: 20 meq Documented by: BUD Sodium Chloride (0.9 % Sodium Chloride Flush 3 Ml Syringe) 3 ml IVFLUSH QSHIFT [facility] Last Admin: 12/21/21 08:58 Dose: 3 ml Documented by: BUD Tramadol HCl (Tramadol Hcl 50 Mg Tablet) 50 mg PO BEDTIME [facility] Last Admin: 12/20/21 20:32 Dose: 50 mg Documented by: FREDO Warfarin Sodium (Warfarin Sodium 2.5 Mg Tablet) 2.5 mg PO DAILY@1800 [facility] Labs CBC & Chem 7: 12/20/21 06:29 12/19/21 12:34 Labs: Laboratory Results - last 24 hr 12/21/21 09:01 PT 35.2 H INR 3.0 H Microbiology Microbiology Results: Microbiology 12/19/21 12:34 Blood Culture - Preliminary Blood - Venous No growth after 48 hours. 12/19/21 13:16 Blood Culture - Preliminary Blood - Venous No growth after 24 hours. Assessment and Plan (1) RLL pneumonia: Status: Acute (2) Paroxysmal A-fib: Status: Acute Plan 70-year-old female with a past medical history of aortic aneurysm, cardiomyopathy, COPD on 3L NC at night and chronic prednisone, HLD, was and CPAP, AFib on Coumadin, presenting to the ED complaining of worsening dyspnea x5 days with dry cough and wheezing.?RLLinfiltrate on CXR 1.RLL infiltrate -IV Zosyn -pulse dose steroids;hold orals -Titrate O2...2L@home - CTA negative - 1 dose IV lasix as per Pulm 2.Paroxysmal AFib..? -continue warfarin..daily PT/INR -continue out patient rate control therapies..Tele full code Quality Stroke Does the patient have a stroke diagnosis?: No VTE Prior VTE?: No VTE Risk Level:: Medical - moderate - high VTE Device Contraindication: Treatment Not Indicated VTE Drug Contraindication: N/A - Med Ordered
[2021-12-21] MEDS: Warfarin Sodium 2.5 MG TABLET PO (16:44)
[2021-12-21] MEDS: traMADoL HCL 50 MG TABLET PO (20:41)
[2021-12-21] MEDS: Atorvastatin Calcium 40 MG TABLET PO (20:42)
[2021-12-22] VITALS: BP 160/68; PULSE 79; PULSE 89; RESP 20; TEMP 36.4; O2SAT 95
[2021-12-22 04:00] VITALS: BP 161/74; PULSE 74; RESP 18; TEMP 36.3; O2SAT 99
[2021-12-22] MEDS: Piperacillin Sodium/Tazobactam 4.5 GM in 0.9 % Sodium Chloride 100 ML IV ×2 (04:04→11:18)
[2021-12-22] MEDS: methylPREDNISolone Sod Succ 125 MG/2 ML VIAL 60 MG IVPUSH ×2 (04:05→11:17)
[2021-12-22] MEDS: Omeprazole 20 MG CAPSULE.DR PO (04:05)
[2021-12-22 07:19] LABS: Basophils Percent Auto 0.2 % (0-2); Eosinophils Percent Auto 0.2 % (0-4); Hematocrit 40.9 % (37.0-47.0); Hemoglobin 13.5 g/dl (12.0-16.0); Imm Gran Abs Auto 0.26 X10*3/uL (0.00-0.03); Imm Gran Pct Auto 2.2 % (0.0-0.4); Lymphocytes Absolute Auto 0.4 X10*3/uL (1.2-4.9); Lymphocytes Percent Auto 3.5 % (20-40); MANUAL DIFF FLAG SCAN; Mean Corpuscular Hemoglobin 31.1 pg (27.0-33.0); Mean Corpuscular Volume 94.2 fL (80.0-98.0); Mean Platelet Volume 9.6 fL (9.4-12.3); Monocytes Absolute Auto 0.5 X10*3/uL (0.1-1.2); Monocytes Percent Auto 3.8 % (2-11); Neutrophils Absolute Auto 10.7 x10*3/uL (2.0-8.3); Neutrophils Percent Auto 90.1 % (45-73); Platelet Count 326 X10*3/uL (160-400); Red Blood Count 4.34 X10*6/uL (4.20-5.50); Red Cell Distribution Width 13.4 % (11.0-16.0); SCAN SMEAR FLAG 1; White Blood Count 11.8 X10*3/uL (4.8-10.8)
[2021-12-22 07:24] LABS: INTERNATIONAL NORM RATIO 3.3 (0.9-1.1); Prothrombin Time 38.6 SEC (9.9-13.0)
[2021-12-22 07:26] VITALS: BP 162/74; PULSE 71; RESP 20; TEMP 35.9; O2SAT 95
[2021-12-22 07:34] LABS: Alanine Aminotransferase 43 U/L (0-31); Albumin Level 3.9 g/dL (3.5-5.0); Alkaline Phosphatase 95 U/L (39-117); Anion Gap 16 (12-20); Aspartate Amino Transferase 40 U/L (5-31); Bilirubin Total 0.5 mg/dL (0.0-1.0); Blood Urea Nitrogen 20 mg/dL (9-16); Calcium 8.9 mg/dL (8.4-10.2); Carbon Dioxide 34 mmol/L (22-29); Chloride 96 mmol/L (96-108); Creatinine Clr Calc Pharmacy 57.5; Estimated Glomerular Filt Rate 47; Glucose Fasting 219 mg/dL (60-99); Potassium 3.3 mmol/L (3.3-5.1); Sodium 143 mmol/L (135-145); Total Protein 6.9 g/dL (6.5-8.0)
[2021-12-22 07:49] LABS: SLIDE REVIEW VERIFIED
[2021-12-22] MEDS: Potassium Chloride ER 20 MEQ TAB.ER.PRT PO (08:48)
[2021-12-22] MEDS: Gabapentin 400 MG CAPSULE 800 MG PO (08:49)
[2021-12-22] MEDS: dilTIAZem HCL CD 120 MG CAP.ER.DEG PO (08:50)
[2021-12-22] MEDS: Loratadine 10 MG TABLET PO (08:50)
[2021-12-22] MEDS: Furosemide 40 MG TABLET 80 MG PO (08:50)
[2021-12-22] MEDS: 0.9 % Sodium Chloride Flush 3 ML SYRINGE IVFLUSH (08:51)
[2021-12-22 11:27] VITALS: BP 160/76; PULSE 76; RESP 20; TEMP 36.6; O2SAT 96
--- NOTE | 2021-12-22 11:48 | MHC.CM.PN ---
Per MD, Patient will be medically cleared for dc to home today/resume existing home O2. Last IMM addressed on 12/20/21.
--- NOTE | 2021-12-22 13:46 | PM.DS ---
DS: Providers Provider Date of Service: 12/22/21 Date of admission: 12/19/21 16:07 Date of discharge: 12/22/21 Primary care physician: Josue Lewis PA-C DS: Diagnosis Discharge Diagnosis (1) RLL pneumonia: Status: Acute (2) Paroxysmal A-fib: Status: Acute DS: Summary Hospital Course Hospital Course: 70-year-old female with a past medical history of aortic aneurysm, cardiomyopathy, COPD on 3L NC at night and chronic prednisone, HLD, was and CPAP, AFib on Coumadin, presenting to the ED complaining of worsening dyspnea x5 days with dry cough and wheezing.?ED workup consistant with RLL infiltrate Hospital Course Admitted... started on IV Zosyn and steroid pulse dosing. Seen by Pulmonary who agreed with treatment. Over the next 48 hours continue to improve O2 was titrated at this point she is suitable for discharge to home with follow-up with Pulmonary as outpatient Time Spent with Patient Time attestation: Total time spent providing and/or coordinating discharge services: Discharge coordination time: Greater than 30 minutes Quality: Stroke Does the patient have a stroke diagnosis?: No Physical Exam Vital Signs: Vital Signs: Last Vital Signs Temp 97.9 F 12/22/21 11:27 Pulse 76 12/22/21 11:27 Resp 20 12/22/21 11:27 BP 160/76 H 12/22/21 11:27 Pulse Ox 96 12/22/21 11:27 Oxygen Flow Rate 5 12/21/21 04:00 BMI result Body Mass Index 46.3 Const: Other: awake alert oriented x3 no acute distress Resp: Other: diminished all feels ho Cardio: Other: no S4; positive S1-S2; no S3 murmurs or gallops GI: Other: soft nontender nondistended with normoac Neuro: Other: cranial nerves 2-12 grossly intact as tested. Motor is 5/5 all extremities. Sensation is intact Extrem: Other: no edema DS: Data Data Completed and Pending Labs on day of discharge: Laboratory Results - last 24 hr 12/22/21 12/22/21 12/22/21 06:56 06:56 06:56 WBC 11.8 H RBC 4.34 Hgb 13.5 Hct 40.9 MCV 94.2 MCH 31.1 MCHC 33.0 RDW 13.4 Plt Count 326 MPV 9.6 Immature Gran % (Auto) 2.2 H Neut % (Auto) 90.1 H Lymph % (Auto) 3.5 L Mcclain % (Auto) 3.8 Eos % (Auto) 0.2 Baso % (Auto) 0.2 Lymph # (Auto) 0.4 L Mcclain # (Auto) 0.5 Eos # (Auto) 0.0 Baso # (Auto) 0.0 Abs Immat Gran (auto) 0.26 H Absolute Neuts (auto) 10.7 H Absolute Nucleated RBC 0.000 Nucleated RBC % (auto) 0.0 Smear Tech's Comments VERIFIED PT 38.6 H INR 3.3 H Sodium 143 Potassium 3.3 Chloride 96 Carbon Dioxide 34 H Anion Gap 16 BUN 20 H Creatinine 1.14 Estim Creat Clear Calc 57.5 Estimated GFR 47 Fasting Glucose 219 H Calcium 8.9 D Total Bilirubin 0.5 AST 40 H ALT 43 H Alkaline Phosphatase 95 D Total Protein 6.9 Albumin 3.9 Preliminary micro results at discharge 12/19/21 13:16 Blood Culture - Preliminary Blood - Venous No growth after 48 hours. 12/19/21 12:34 Blood Culture - Preliminary Blood - Venous No growth after 48 hours. Discharge Plan Discharge Patient Disposition: Home, Self-Care Discharge Diagnosis: RLL pneumonia Referrals: Josue Lewis PA-C [Primary Care Provider] - 1 Week Discharge Medications: New prednisone 10 mg tablet See Rx Instructions .Route .COMPLEX Qty: 45 0RF Rx Instructions: 10 mg orally; 5 tabs p.o. daily x3 days; 4 tabs p.o. daily x3 days; 3 tabs daily x3 days; 2 tabs daily x3 days; 1 tab daily x3 days amoxicillin-pot clavulanate 875-125 mg tablet 1 tab PO BID Qty: 14 0RF Continued omeprazole 20 mg capsule,delayed release(DR/EC) 20 mg PO DAILY Qty: 90 3RF warfarin 5 mg tablet 2.5 mg PO MO 0RF furosemide 40 mg tablet 80 mg PO DAILY 0RF atorvastatin 40 mg tablet 40 mg PO BEDTIME 0RF ipratropium-albuterol 0.5 mg-3 mg(2.5 mg base)/3 mL solution for nebulization 3 ml inhalation BID 0RF Rx Instructions: run through medicare B amiodarone 200 mg tablet 100 mg PO MOWEFR 0RF tramadol 50 mg tablet 50 mg PO BEDTIME 0RF gabapentin 800 mg tablet 800 mg PO BID 0RF prednisone 1 mg tablet 4 mg PO DAILY 0RF Rx Instructions: Take 4mg (4 tabs) by mouth daily x1 month, then take 3mg (3 tabs) by mouth daily x1 month. warfarin 5 mg tablet 5 mg PO SUTUWETHFRSA 0RF Protocol: Dose Management Condition: Friday (Week One) Dose/Route: 5 mg Instruction: 1 x 5 mg tablet Condition: Friday Dose/Route: 2.5 mg Instruction: 0.5 x 5 mg tablets Condition: Friday Dose/Route: 5 mg Instruction: 1 x 5 mg tablet Condition: Friday Dose/Route: 5 mg Instruction: 1 x 5 mg tablet Condition: Dose/Route: 5 mg Instruction: 1 x 5 mg tablet Condition: Friday Dose/Route: 5 mg Instruction: 1 x 5 mg tablet Condition: Friday Dose/Route: 5 mg Instruction: 1 x 5 mg tablet Condition: Friday (Week Two) Dose/Route: 5 mg Instruction: 1 x 5 mg tablet Condition: Friday Dose/Route: 2.5 mg Instruction: 0.5 x 5 mg tablets Condition: Friday Dose/Route: 5 mg Instruction: 1 x 5 mg tablet Condition: Friday Dose/Route: 5 mg Instruction: 1 x 5 mg tablet Condition: Dose/Route: 5 mg Instruction: 1 x 5 mg tablet Condition: Friday Dose/Route: 5 mg Instruction: 1 x 5 mg tablet Condition: Friday Dose/Route: 5 mg Instruction: 1 x 5 mg tablet Protocol Text: Adjustment Start Date: Friday12/19/21 INR Value: Pending INR Date: 12/19/21 Recheck Date: 01/02/22 Additional Instructions: CONT REG DOSING. EAT GREENS TO LOWER INR CALL WITH ANY MEDICATION CHANGES budesonide 0.5 mg/2 mL suspension for nebulization 0.5 mg inhalation BEDTIME 0RF Rx Instructions: run through medicare B potassium chloride 20 mEq tablet extended release 20 meq PO DAILY Qty: 90 2RF diltiazem HCl 120 mg capsule,extended release 24hr 120 mg PO BID Qty: 180 4RF cetirizine [Allergy Relief (cetirizine)] 10 mg tablet 10 mg PO DAILY 0RF mupirocin 2 % ointment 1 appl topical BID PRN (Reason: OPEN WOUND) 0RF Discharge Orders: Discharge Order (Routine); Ordered 12/22/21 Ordered By: Niall Webber Diet: advance to usual diet Activity on Discharge: As tolerated Stand Alone Forms: Patient Portal Discharge page Care Plan Goals: Resume all previous home therapies. Complete the course of Augmentin and prednisone as ordered Health Concerns: resume home O2 as previous settings Plan of Treatment: Follow up with Dr Corona as scheduled Assessment: as per DC summary
== END 2021-12-22 15:21 | disposition home or self-care (01) | DRG 193 ==
LOC: HO.ED 13:08 → HO.EDOVER 16:26 → HO.IMC 12-20 23:18
PROVIDERS: Physician Assistant; Admitting Provider Hospitalist; Emergency Provider Internal Medicine; PCP Physician Assistant; Visit Provider Hospitalist
DX: J18.9 Pneumonia, unspecified organism (principal); J96.20 Acute and chronic respiratory failure, unspecified whether with hypoxia or hypercapnia; J44.1 Chronic obstructive pulmonary disease with (acute) exacerbation; Z68.42 Body mass index [BMI] 45.0-49.9, adult; J98.11 Atelectasis; J44.0 Chronic obstructive pulmonary disease with (acute) lower respiratory infection; G47.33 Obstructive sleep apnea (adult) (pediatric); I48.0 Paroxysmal atrial fibrillation; E66.09 Other obesity due to excess calories; Z20.822 Contact with and (suspected) exposure to COVID-19; Z99.81 Dependence on supplemental oxygen; Z99.89 Dependence on other enabling machines and devices; Z87.891 Personal history of nicotine dependence; Z88.8 Allergy status to other drugs, medicaments and biological substances; Z91.040 Latex allergy status; Z79.01 Long term (current) use of anticoagulants; Z79.52 Long term (current) use of systemic steroids; Z79.891 Long term (current) use of opiate analgesic; Z79.899 Other long term (current) drug therapy
CPT/HCPCS: 36415; 71045; 71275; 80048; 80053; 80076; 83605; 83735; 83880; 84484; 85025; 85027; 85610; 87040; 87635; 93005; 94640; 94644; 94645; 94660; 96365; 96366; 96367; 96375; 99211; 99285; 99291; J0456; J0696; J1940; J2543; J2930; J3475; Q9967

== ENCOUNTER → 2021-12-28 13:32 | Outpatient (BNVA) | payer MEDICARE, SELFPAY | PROVIDERS: PCP Physician Assistant; Visit Provider Nurse Practitioner Family | DX: I48.0 Paroxysmal atrial fibrillation (principal); G25.3 Myoclonus; M47.816 Spondylosis without myelopathy or radiculopathy, lumbar region; M25.50 Pain in unspecified joint; Z51.81 Encounter for therapeutic drug level monitoring; Z79.01 Long term (current) use of anticoagulants | CPT/HCPCS: 85610; 99202; 99211 ==

== ENCOUNTER 2022-01-04 09:45 | Outpatient (REF) | payer MEDICARE, SELFPAY ==
[2022-01-04 11:07] LABS: Hematocrit 43.2 % (37.0-47.0); Hemoglobin 13.7 g/dl (12.0-16.0); Mean Corpuscular HGB Conc 31.7 g/dl (31.0-35.0); Mean Corpuscular Hemoglobin 30.7 pg (27.0-33.0); Mean Corpuscular Volume 96.9 fL (80.0-98.0); Mean Platelet Volume 9.6 fL (9.4-12.3); Platelet Count 279 X10*3/uL (160-400); Red Blood Count 4.46 X10*6/uL (4.20-5.50); Red Cell Distribution Width 13.8 % (11.0-16.0); White Blood Count 13.5 X10*3/uL (4.8-10.8)
[2022-01-04 11:29] LABS: Anion Gap 13 (12-20); Blood Urea Nitrogen 28 mg/dL (9-16); C Reactive Protein 1.29 mg/dL (< or = 0.50); Calcium 9.6 mg/dL (8.4-10.2); Carbon Dioxide 37 mmol/L (22-29); Chloride 95 mmol/L (96-108); Estimated Glomerular Filt Rate 45; Glucose Random 110 mg/dL (60-115); Potassium 4.7 mmol/L (3.3-5.1); Sodium 140 mmol/L (135-145)
[2022-01-04 11:45] LABS: Erythrocyte Sedimentation Rate 38 MM/HR (0-20)
== END 2022-01-04 09:46 | disposition home or self-care (01) ==
LOC: HO.LAB 09:45
PROVIDERS: Absent Provider Physician Assistant; PCP Physician Assistant; Visit Provider Nurse Practitioner Family
DX: I48.0 Paroxysmal atrial fibrillation (principal); J96.21 Acute and chronic respiratory failure with hypoxia; M35.3 Polymyalgia rheumatica; Z51.81 Encounter for therapeutic drug level monitoring; Z79.01 Long term (current) use of anticoagulants
CPT/HCPCS: 36415; 80048; 85027; 85610; 85652; 86140; 99211

== ENCOUNTER → 2022-01-23 10:39 | Outpatient (BNVA) | payer MEDICARE, SELFPAY | PROVIDERS: PCP Physician Assistant; Visit Provider Internal Medicine | DX: I48.0 Paroxysmal atrial fibrillation (principal); Z51.81 Encounter for therapeutic drug level monitoring; Z79.01 Long term (current) use of anticoagulants | CPT/HCPCS: 85610; 99211 ==

== ENCOUNTER 2022-02-01 11:21 | Outpatient (REF) | payer MEDICARE, SELFPAY ==
[2022-02-01 12:44] LABS: Hematocrit 41.9 % (37.0-47.0); Hemoglobin 13.5 g/dl (12.0-16.0); Mean Corpuscular HGB Conc 32.2 g/dl (31.0-35.0); Mean Corpuscular Hemoglobin 30.6 pg (27.0-33.0); Mean Platelet Volume 9.3 fL (9.4-12.3); Platelet Count 360 X10*3/uL (160-400); Red Blood Count 4.41 X10*6/uL (4.20-5.50); Red Cell Distribution Width 13.3 % (11.0-16.0); White Blood Count 12.8 X10*3/uL (4.8-10.8)
[2022-02-01 13:04] LABS: Anion Gap 17 (12-20); Blood Urea Nitrogen 15 mg/dL (9-16); C Reactive Protein 2.27 mg/dL (< or = 0.50); Calcium 9.2 mg/dL (8.4-10.2); Carbon Dioxide 33 mmol/L (22-29); Chloride 94 mmol/L (96-108); Estimated Glomerular Filt Rate 48; Glucose Random 106 mg/dL (60-115); Potassium 3.3 mmol/L (3.3-5.1); Sodium 141 mmol/L (135-145)
[2022-02-01 13:30] LABS: Erythrocyte Sedimentation Rate 79 MM/HR (0-20)
== END 2022-02-01 11:22 | disposition home or self-care (01) ==
LOC: HO.LAB 11:21
PROVIDERS: PCP Physician Assistant; Visit Provider Nurse Practitioner Family
DX: M35.3 Polymyalgia rheumatica (principal); M47.816 Spondylosis without myelopathy or radiculopathy, lumbar region; M81.0 Age-related osteoporosis without current pathological fracture; G25.3 Myoclonus; I10 Essential (primary) hypertension; Z79.52 Long term (current) use of systemic steroids
CPT/HCPCS: 36415; 80048; 85027; 85652; 86140; 99212

== ENCOUNTER → 2022-02-05 10:07 | Outpatient (BNVA) | payer MEDICARE, SELFPAY | PROVIDERS: PCP Physician Assistant; Referring Provider Physician Assistant; Visit Provider Internal Medicine | DX: I48.0 Paroxysmal atrial fibrillation (principal); I42.8 Other cardiomyopathies; G47.33 Obstructive sleep apnea (adult) (pediatric); Z79.899 Other long term (current) drug therapy; Z99.89 Dependence on other enabling machines and devices | CPT/HCPCS: 99212 ==

== ENCOUNTER → 2022-02-06 13:30 | Outpatient (BNVA) | payer MEDICARE, SELFPAY | PROVIDERS: PCP Physician Assistant; Visit Provider Nurse Practitioner Family | DX: G25.3 Myoclonus (principal); M47.816 Spondylosis without myelopathy or radiculopathy, lumbar region | CPT/HCPCS: Q3014 ==

== ENCOUNTER 2022-02-07 13:23 | Outpatient (REF) | payer MEDICARE, SELFPAY ==
--- NOTE | ~2022-02-07 | MM_ITS ---
EXAMINATION: MM SCREENING DIGITAL BREAST TOMOSYNTHESIS, BILATERAL CLINICAL INFORMATION: Screening. Asymptomatic. The lifetime risk of breast cancer based on the Tyrer-Cuzick Model is 4%. COMPARISON: Outside mammography: 02/07/2004 ([facility]) TECHNIQUE: Digital breast tomosynthesis is performed in both the craniocaudal and mediolateral oblique views along with computer-aided detection (CAD). Synthesized 2D images are generated from the tomosynthesis. Additional exaggerated right CC and bilateral MLO views are provided. FINDINGS: The breasts are almost entirely fatty (ACR BI-RADS breast composition Category a). The right breast stromal and fibroglandular densities are stable. There is no developing density or interval mass or architectural abnormality. Neither breast shows abnormal calcifications. The axilla and skin contours are unremarkable. The left breast has a tubular density anterior outer breast around 1.4 cm length not seen with certainty on remote outside exam, possibly focal duct ectasia. Patient will be recalled to fully characterize. MM/MM tomosynthesis screening BI IMPRESSION: Left: -Tubular density anterior outer breast possibly focal duct ectasia. Right: -No significant change from prior outside exam. ASSESSMENT: BI-RADS 0: Incomplete - Need Additional Imaging Evaluation RECOMMENDATION: 1. Additional views of the left breast (spot CC, spot ML). 2. Targeted ultrasound if warranted after review of the additional views. 3. Radiology department staff will contact the patient for additional imaging. This patient's information was entered into a reminder system with a target due date for their next mammogram.
== END 2022-02-07 13:24 | disposition home or self-care (01) ==
LOC: HO.MAMMO 13:23
PROVIDERS: Visit Provider Physician Assistant
DX: Z12.31 Encounter for screening mammogram for malignant neoplasm of breast (principal)
CPT/HCPCS: 77063; 77067

== ENCOUNTER → 2022-02-13 10:38 | Outpatient (BNVA) | payer MEDICARE, SELFPAY | PROVIDERS: PCP Physician Assistant; Visit Provider Internal Medicine | DX: I48.0 Paroxysmal atrial fibrillation (principal); Z79.01 Long term (current) use of anticoagulants; Z51.81 Encounter for therapeutic drug level monitoring | CPT/HCPCS: 85610; 99211 ==

== ENCOUNTER → 2022-02-19 10:50 | Outpatient (BNVA) | payer MEDICARE, SELFPAY | PROVIDERS: PCP Physician Assistant; Visit Provider Hospitalist | DX: J41.0 Simple chronic bronchitis (principal); J43.2 Centrilobular emphysema; J96.11 Chronic respiratory failure with hypoxia; G47.33 Obstructive sleep apnea (adult) (pediatric); K21.9 Gastro-esophageal reflux disease without esophagitis; Z99.89 Dependence on other enabling machines and devices | CPT/HCPCS: 99212 ==

== ENCOUNTER 2022-02-20 10:46 | Outpatient (REF) | payer MEDICARE, SELFPAY ==
--- NOTE | 2022-02-20 11:47 | PFT_ITS ---
INDICATION: COPD. SPIROMETRY: FEV1 to FVC of 64% with an FEV1 of 1.03 L, which is 47% predicted, an FVC of 1.61 L, which is 55% predicted. No significant response to bronchodilators noted. Maximum voluntary ventilation only 49% predicted. LUNG VOLUMES: Total lung capacity 79% predicted with an expiratory reserve volume of 21% predicted secondary to an elevated BMI. DIFFUSION CAPACITY: DLCO 42% predicted. COMPARISONS: None. INTERPRETATION: There is an obstructive ventilatory defect, consistent with severe COPD. There is no significant response to bronchodilators noted. There is also [id number] decrease in maximum voluntary ventilation secondary to likely deconditioning. Lung volumes do demonstrate a restrictive ventilatory defect, consistent with mild restrictive lung disease. Partly due to the decrease in the expiratory reserve volume secondary to an elevated BMI. The patient does have a sxunjzap-gs-sxxzzl diffusion impairment secondary to the emphysema and/or other parenchymal lung conditions. Clinical correlation is warranted. MD MARIA INES Mulligan/ABDIRAHMAN / [id number]
== END 2022-02-20 10:47 | disposition home or self-care (01) ==
LOC: HO.RESP 10:46
PROVIDERS: PCP Physician Assistant; Visit Provider Hospitalist
DX: M47.816 Spondylosis without myelopathy or radiculopathy, lumbar region (principal); M54.59 Other low back pain; M62.838 Other muscle spasm; Z87.891 Personal history of nicotine dependence
CPT/HCPCS: 20552; 20553; 94060; 94727; 94729; 99212

== ENCOUNTER → 2022-02-27 08:38 | Outpatient (RCR) | payer MEDICARE, SELFPAY | END | disposition home or self-care (01) | LOC: HO.PTCHIC 07-28 09:48 | PROVIDERS: PCP Internal Medicine; Visit Provider Anesthesiology | DX: M51.36 Other intervertebral disc degeneration, lumbar region (principal) | CPT/HCPCS: 97110; 97140 ==

== ENCOUNTER 2022-03-01 08:45 | Outpatient (REF) | payer MEDICARE, SELFPAY ==
--- NOTE | ~2022-03-01 | MM_ITS ---
EXAMINATION: MM DIAGNOSTIC DIGITAL BREAST TOMOSYNTHESIS, LEFT CLINICAL INFORMATION: Tubular density anterior aspect of the left breast COMPARISON: Mammography: February 07, 2022 and studies dating back to February 07, 2004 TECHNIQUE: Digital breast tomosynthesis is performed. 2D images are generated from the tomosynthesis. The following views are obtained: Repeat craniocaudal view as well as spot compression craniocaudal and 90 degree mediolateral views. FINDINGS: The breasts are almost entirely fatty (ACR BI-RADS breast composition Category a). Additional views show no significant mass, architectural abnormality, or abnormal calcifications. Results are provided to the patient at time of visit by the technologist. MM/MM tomosynthesis added views L IMPRESSION: No persistent left breast abnormality identified. ASSESSMENT: BI-RADS 1: Negative RECOMMENDATION: Routine annual mammography screening. This patient's information was entered into a reminder system with a target due date for their next mammogram.
== END 2022-03-01 08:46 | disposition home or self-care (01) ==
LOC: HO.MAMMO 08:45
PROVIDERS: Visit Provider Physician Assistant
DX: R92.2 Inconclusive mammogram (principal)
CPT/HCPCS: 77061; 77065

== ENCOUNTER → 2022-03-13 10:42 | Outpatient (BNVA) | payer MEDICARE, SELFPAY | PROVIDERS: PCP Physician Assistant; Visit Provider Internal Medicine | DX: I48.0 Paroxysmal atrial fibrillation (principal); Z79.01 Long term (current) use of anticoagulants; Z51.81 Encounter for therapeutic drug level monitoring | CPT/HCPCS: 85610; 99211 ==

== ENCOUNTER 2022-04-09 09:30 | Outpatient (REF) | payer MEDICARE, SELFPAY ==
[2022-04-09 10:59] LABS: Alanine Aminotransferase 153 U/L (0-31); Albumin Level 3.8 g/dL (3.5-5.0); Alkaline Phosphatase 144 U/L (39-117); Anion Gap 14 (12-20); Aspartate Amino Transferase 138 U/L (5-31); Bilirubin Total 0.9 mg/dL (0.0-1.0); Blood Urea Nitrogen 14 mg/dL (9-16); C Reactive Protein 2.11 mg/dL (< or = 0.50); Calcium 9.5 mg/dL (8.4-10.2); Carbon Dioxide 31 mmol/L (22-29); Chloride 98 mmol/L (96-108); Estimated Glomerular Filt Rate 46; Glucose Random 126 mg/dL (60-115); Potassium 3.9 mmol/L (3.3-5.1); Sodium 139 mmol/L (135-145); Total Protein 6.6 g/dL (6.5-8.0)
[2022-04-09 11:04] LABS: Erythrocyte Sedimentation Rate 75 MM/HR (0-20)
[2022-04-09 11:18] LABS: Vitamin D 25-OH Total 20.3 ng/mL (>30)
== END 2022-04-09 09:31 | disposition home or self-care (01) ==
LOC: HO.LAB 09:30
PROVIDERS: Absent Provider Internal Medicine; PCP Physician Assistant; Visit Provider Nurse Practitioner Family
DX: M81.0 Age-related osteoporosis without current pathological fracture (principal); M35.3 Polymyalgia rheumatica; I48.0 Paroxysmal atrial fibrillation; Z51.81 Encounter for therapeutic drug level monitoring; Z79.01 Long term (current) use of anticoagulants
CPT/HCPCS: 36415; 80053; 82306; 85610; 85652; 86140; 99211; 99212

== ENCOUNTER → 2022-04-11 09:22 | Outpatient (BNVA) | payer MEDICARE, SELFPAY | PROVIDERS: PCP Physician Assistant; Visit Provider Nurse Practitioner Family | DX: M81.0 Age-related osteoporosis without current pathological fracture (principal) | CPT/HCPCS: 96372; J0897 ==

== ENCOUNTER → 2022-04-16 10:37 | Outpatient (BNVA) | payer MEDICARE, SELFPAY | PROVIDERS: PCP Physician Assistant; Visit Provider Nurse Practitioner | DX: K59.00 Constipation, unspecified (principal); K21.9 Gastro-esophageal reflux disease without esophagitis; I42.9 Cardiomyopathy, unspecified; I48.0 Paroxysmal atrial fibrillation; J96.11 Chronic respiratory failure with hypoxia; E66.01 Morbid (severe) obesity due to excess calories; Z68.42 Body mass index [BMI] 45.0-49.9, adult; Z79.01 Long term (current) use of anticoagulants; Z79.899 Other long term (current) drug therapy | CPT/HCPCS: 99212 ==

== ENCOUNTER 2022-04-22 08:42 | Outpatient (REF) | payer MEDICARE, SELFPAY ==
--- NOTE | ~2022-04-22 | US_ITS ---
EXAMINATION: US ABDOMEN COMPLETE CLINICAL INFORMATION: Elevated liver enzymes. COMPARISON: CT angiogram of the chest with and without contrast 12/20/2021. US retroperitoneal limited (aorta) 07/24/2021. CT abdomen and pelvis with contrast 09/25/2020. Ultrasound abdomen complete 05/04/2014. TECHNIQUE: Real-time imaging of the abdominal viscera. Technically severely limited study secondary to body habitus. FINDINGS: PANCREAS: Head and body the pancreas are normal. The tail is not well visualized due to bowel gas. ABDOMINAL AORTA: Not well visualized due to bowel gas. INFERIOR VENA CAVA: Visualized portions are normal. LIVER: The liver is not well visualized due to body habitus and bowel gas. The liver is normal in size. The liver contour is normal. Liver echotexture may be slightly increased and heterogeneous. No focal hepatic lesion. There is no intrahepatic biliary duct dilatation seen. GALLBLADDER: Surgically absent. COMMON BILE DUCT: Normal in caliber measuring 0.3 cm in diameter. RIGHT KIDNEY: Normal. No hydronephrosis. No renal calculi or focal parenchymal lesions. The kidney measures 12.1 cm in maximum dimension. LEFT KIDNEY: The left kidney is smaller than the right and there is renal cortical thinning. There is a 2 cm cyst in the upper pole. No hydronephrosis or renal calculi. The kidney measures 8.8 cm in maximum dimension. SPLEEN: Normal. The spleen measures 10.3 cm in maximum dimension. FREE FLUID: None. US/US abdomen complete IMPRESSION: Limited exam. Visualization of the pancreas aorta and liver are limited. Question slightly heterogeneous increased liver echotexture. Atrophic left kidney. Left renal cyst.
[2022-04-22 12:23] LABS: HBS Num1 2.05 mIU/mL (0-7.99); HBsAGNum1 0.18 S/CO (0.00-0.99); Hepatitis B Core Antibody Nonreactive (Nonreactive); Hepatitis B Surface Antigen Negative (Negative); ~Hepatitis B Surface Antibody NONREACTIVE (Nonreactive); ~Hepatitis C Antibody Nonreactive (Nonreactive)
[2022-04-22 12:30] LABS: TSH reflex Free T4 0.74 uIU/mL (0.32-4.0)
[2022-04-22 12:48] LABS: Erythrocyte Sedimentation Rate 76 MM/HR (0-20)
[2022-04-22 12:51] LABS: Alanine Aminotransferase 90 U/L (0-31); Albumin Level 3.9 g/dL (3.5-5.0); Alkaline Phosphatase 138 U/L (39-117); Aspartate Amino Transferase 69 U/L (5-31); Bilirubin Direct 0.3 mg/dL (0.0-0.5); Bilirubin Total 0.8 mg/dL (0.0-1.0); C Reactive Protein 2.46 mg/dL (< or = 0.50); Total Protein 6.8 g/dL (6.5-8.0)
== END 2022-04-22 08:43 | disposition home or self-care (01) ==
LOC: HO.HMGCX 08:42
PROVIDERS: Nurse Practitioner Family; PCP Physician Assistant; Visit Provider Physician Assistant
DX: Z11.3 Encounter for screening for infections with a predominantly sexual mode of transmission (principal); E66.01 Morbid (severe) obesity due to excess calories; M35.3 Polymyalgia rheumatica; R74.8 Abnormal levels of other serum enzymes; I48.0 Paroxysmal atrial fibrillation; J44.9 Chronic obstructive pulmonary disease, unspecified; E78.5 Hyperlipidemia, unspecified; M06.9 Rheumatoid arthritis, unspecified; Z79.52 Long term (current) use of systemic steroids
CPT/HCPCS: 36415; 76700; 80076; 84443; 85652; 86140; 86704; 86706; 86803; 87340

== ENCOUNTER → 2022-05-07 11:10 | Outpatient (BNVA) | payer MEDICARE, SELFPAY | PROVIDERS: PCP Physician Assistant; Visit Provider Internal Medicine | DX: I48.0 Paroxysmal atrial fibrillation (principal); Z79.01 Long term (current) use of anticoagulants; Z51.81 Encounter for therapeutic drug level monitoring | CPT/HCPCS: 85610; 99211 ==

== ENCOUNTER → 2022-05-08 10:20 | Outpatient (BNVA) | payer MEDICARE, SELFPAY | PROVIDERS: PCP Physician Assistant; Visit Provider Nurse Practitioner Family | DX: M35.3 Polymyalgia rheumatica (principal); M81.0 Age-related osteoporosis without current pathological fracture; M47.816 Spondylosis without myelopathy or radiculopathy, lumbar region | CPT/HCPCS: 99212 ==

== ENCOUNTER → 2022-05-21 10:53 | Outpatient (BNVA) | payer MEDICARE, SELFPAY | PROVIDERS: PCP Physician Assistant; Visit Provider Internal Medicine | DX: I48.0 Paroxysmal atrial fibrillation (principal); Z79.01 Long term (current) use of anticoagulants; Z51.81 Encounter for therapeutic drug level monitoring | CPT/HCPCS: 85610; 99211 ==

== ENCOUNTER → 2022-05-29 09:47 | Outpatient (BNVA) | payer MEDICARE, SELFPAY | PROVIDERS: PCP Physician Assistant; Visit Provider Nurse Practitioner | DX: Z01.818 Encounter for other preprocedural examination (principal); J44.9 Chronic obstructive pulmonary disease, unspecified; E66.01 Morbid (severe) obesity due to excess calories; I42.9 Cardiomyopathy, unspecified; I48.0 Paroxysmal atrial fibrillation; G47.33 Obstructive sleep apnea (adult) (pediatric); K21.9 Gastro-esophageal reflux disease without esophagitis; J96.11 Chronic respiratory failure with hypoxia; Z12.11 Encounter for screening for malignant neoplasm of colon; Z99.81 Dependence on supplemental oxygen; Z99.89 Dependence on other enabling machines and devices; Z79.01 Long term (current) use of anticoagulants | CPT/HCPCS: 99212 ==

== ENCOUNTER → 2022-06-04 10:47 | Outpatient (BNVA) | payer MEDICARE, SELFPAY | PROVIDERS: PCP Physician Assistant; Visit Provider Internal Medicine | DX: I48.0 Paroxysmal atrial fibrillation (principal); Z79.01 Long term (current) use of anticoagulants; Z51.81 Encounter for therapeutic drug level monitoring | CPT/HCPCS: 85610; 99211 ==

== ENCOUNTER → 2022-06-13 10:52 | Outpatient (BNVA) | payer MEDICARE, SELFPAY | PROVIDERS: PCP Physician Assistant; Visit Provider Orthopaedic Surgery | DX: M17.0 Bilateral primary osteoarthritis of knee (principal); M25.50 Pain in unspecified joint | CPT/HCPCS: 20610; 99202; J1100 ==

== ENCOUNTER 2022-07-02 11:55 | Outpatient (REF) | payer MEDICARE, SELFPAY ==
--- NOTE | ~2022-07-02 | XR_ITS ---
EXAMINATION: XR SHOULDER, RIGHT CLINICAL INFORMATION: S43.401A - Unspecified sprain of right shoulder joint, initial encounter. COMPARISON: None TECHNIQUE: Right shoulder is imaged in 3 views. FINDINGS: No fracture, dislocation, destructive process. The glenohumeral joint appears normal. There are degenerative changes acromioclavicular joint. The acromioclavicular alignment is normal. There is some fine calcification distal superior rotator cuff adjacent to the greater tuberosity. Right lung apex appears clear. XR/XR shoulder RT min 2V IMPRESSION: -Calcific tendinosis distal superior rotator cuff. -Degenerative changes acromioclavicular joint.
== END 2022-07-02 11:56 | disposition home or self-care (01) ==
LOC: HO.HMGCX 11:55
PROVIDERS: PCP Physician Assistant; Visit Provider Internal Medicine
DX: S43.401A Unspecified sprain of right shoulder joint, initial encounter (principal)
CPT/HCPCS: 73030

== ENCOUNTER → 2022-07-09 10:46 | Outpatient (BNVA) | payer MEDICARE, SELFPAY | PROVIDERS: PCP Physician Assistant; Visit Provider Internal Medicine | DX: I48.0 Paroxysmal atrial fibrillation (principal); Z79.01 Long term (current) use of anticoagulants; Z51.81 Encounter for therapeutic drug level monitoring | CPT/HCPCS: 85610; 99211 ==

== ENCOUNTER → 2022-08-06 09:51 | Outpatient (BNVA) | payer MEDICARE, SELFPAY | PROVIDERS: PCP Physician Assistant; Visit Provider Internal Medicine | DX: I48.0 Paroxysmal atrial fibrillation (principal); Z51.81 Encounter for therapeutic drug level monitoring; Z79.01 Long term (current) use of anticoagulants | CPT/HCPCS: 85610; 99211 ==

== ENCOUNTER → 2022-08-08 10:06 | Outpatient (BNVA) | payer MEDICARE, SELFPAY | PROVIDERS: PCP Physician Assistant; Visit Provider Nurse Practitioner Family | DX: M81.0 Age-related osteoporosis without current pathological fracture (principal); M25.512 Pain in left shoulder; M35.3 Polymyalgia rheumatica; M47.816 Spondylosis without myelopathy or radiculopathy, lumbar region | CPT/HCPCS: 99212 ==

== ENCOUNTER → 2022-08-13 10:06 | Outpatient (BNVA) | payer MEDICARE, SELFPAY | PROVIDERS: PCP Physician Assistant; Referring Provider Physician Assistant; Visit Provider Internal Medicine | DX: I48.0 Paroxysmal atrial fibrillation (principal); I42.8 Other cardiomyopathies; Z51.81 Encounter for therapeutic drug level monitoring; G47.33 Obstructive sleep apnea (adult) (pediatric); Z99.89 Dependence on other enabling machines and devices | CPT/HCPCS: 93005; 99212 ==

== ENCOUNTER 2022-08-16 09:00 | Outpatient (RCR) | payer MEDICARE, SELFPAY ==
--- NOTE | 2022-07-03 11:16 | MHC.PT.EP ---
[facility] [place] Office [place] Office [place] Office [address] [place] [address] [phone] F: [phone] F: [phone] F: [phone] F: [phone] Physical Therapy Plan of Care Date of Evaluation: Date of Surgery: none Diagnosis: bilateral knee OA Assessment: Patient is a 71 year old R handed female who presents with s/s consistent with bilateral knee OA/pain. She does not work but enjoys being able to take care of her home as best she can. She is limited by many co-morbidities including knee and back pain, COPD and she is currently walking with rollator and O2 via NC. Current impairments include pain, posture, ROM, strength, activity tolerance and functional mobility. 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 Patient is motivated with good rehab potential. Skilled PT will address impairments and functional limitations in order to achieve goals. Frequency and Duration: The patient will be seen 2x/week for 5 weeks Short Term Goals: I with HEP - 2 weeks AAROM flexion to 120 b/l - 3 weeks Able to walk 10 minutes without increased pain or rest - 3 weeks Residential Goals: LEFS 40/80 - 5 weeks LE strength 4-/5 grossly - 5 weeks MAx pain with daily activities 2/10 - 5 weeks Treatment Plan: Modalities to reduce pain, spasms and effusion. Manual therapy to restore motion and function. Therapeutic exercise to improve strength and flexibility. Neuromuscular re-education for posture and balance. Therapeutic activities to return to functional activities of daily living. Electronically signed by: Noah Gamez, PT Please sign and return to therapist. Thank you for your referral.
--- NOTE | 2022-10-09 08:41 | MHC.PT.DC ---
[facility] [place] Office [place] Office [place] Office [address] [place] [address] [phone] F: [phone] F: [phone] F: [phone] F: [phone] Physical Therapy Discharge Report Diagnosis: bilateral knee OA Date of Surgery: none Date of Evaluation: 07/03/22 Date of Discharge: 10/09/22 Treatments to Date: 6 Cancellations to Date: No Shows to Date: Discharge Status: Independent with HEP Patient Elected to Stop Discharge Summary: Due to hip discomfort, pt held on PT 08/16/22: still with some hip discomfort. we held on progression again and gave some edu on possible ways to manage sleeping arrangement. progress as tolerated NV. address next visit with strething in the plinth for post hip. 08/09/22: pt has been feeling a little better overall with less pain and slight muscle soreness. we will continue to pursue progress for 2 more weeks. 08/07/22: pt has been having difficulty with standing > 5 minutes still. we discussed this at length today. we also used a hot pack for back pain. 07/23/22: we did hold on progression today as pt walked a lot yesterday and was feeling tired and sore though her back. we will continue to progress as tolerated. 07/19/22: pt progressed very well today with seated/standing ex. we updated HEP and will assess response to today's treatment nv 07/10/22: progressed cautiously. requires management of spasms. also requires rest breaks. we will continue to progress within tolerance. Patient is a 71 year old R handed female who presents with s/s consistent with bilateral knee OA/pain. She does not work but enjoys being able to take care of her home as best she can. She is limited by many co-morbidities including knee and back pain, COPD and she is currently walking with rollator and O2 via NC. Current impairments include pain, posture, ROM, strength, activity tolerance and functional mobility. 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 Patient is motivated with good rehab potential. Skilled PT will address impairments and functional limitations in order to achieve goals. Electronically signed by: Noah Gamez, PT Please sign and return to therapist. Thank you for your referral.
== END 2022-10-09 08:41 | disposition home or self-care (01) ==
LOC: HO.PTCHIC 09:00
PROVIDERS: PCP Physician Assistant; Visit Provider Orthopaedic Surgery
DX: M17.0 Bilateral primary osteoarthritis of knee (principal); M25.50 Pain in unspecified joint
CPT/HCPCS: 97110; 97163

== ENCOUNTER 2022-08-16 09:53 | Outpatient (REF) | payer MEDICARE, SELFPAY ==
[2022-08-16 11:40] LABS: Hematocrit 39.7 % (37.0-47.0); Mean Corpuscular HGB Conc 32.7 g/dl (31.0-35.0); Mean Corpuscular Volume 94.5 fL (80.0-98.0); Mean Platelet Volume 9.8 fL (9.4-12.3); Platelet Count 319 X10*3/uL (160-400); Red Cell Distribution Width 14.1 % (11.0-16.0); White Blood Count 6.7 X10*3/uL (4.8-10.8)
[2022-08-16 12:21] LABS: Erythrocyte Sedimentation Rate 75 MM/HR (0-20)
[2022-08-16 12:33] LABS: TSH reflex Free T4 1.38 uIU/mL (0.32-4.0)
[2022-08-16 12:36] LABS: Alanine Aminotransferase 17 U/L (0-31); Albumin Level 3.9 g/dL (3.5-5.0); Alkaline Phosphatase 87 U/L (39-117); Anion Gap 18 (12-20); Aspartate Amino Transferase 20 U/L (5-31); Bilirubin Direct 0.3 mg/dL (0.0-0.5); Bilirubin Total 0.8 mg/dL (0.0-1.0); Blood Urea Nitrogen 18 mg/dL (9-16); C Reactive Protein 2.16 mg/dL (< or = 0.50); Calcium 9.3 mg/dL (8.4-10.2); Carbon Dioxide 29 mmol/L (22-29); Chloride 99 mmol/L (96-108); Cholesterol 271 mg/dL; Estimated Glomerular Filt Rate 49; Glucose Fasting 96 mg/dL (60-99); HDL Cholesterol 71 mg/dL; LDL Cholesterol Calculated 182 mg/dl; Potassium 4.2 mmol/L (3.3-5.1); Sodium 142 mmol/L (135-145); Total Protein 6.7 g/dL (6.5-8.0); Triglycerides 93 mg/dL
== END 2022-08-16 09:54 | disposition home or self-care (01) ==
LOC: HO.HMGCLDS 09:53
PROVIDERS: Absent Provider Physician Assistant; PCP Physician Assistant; Visit Provider Nurse Practitioner Family
DX: E78.2 Mixed hyperlipidemia (principal); R74.8 Abnormal levels of other serum enzymes; M35.3 Polymyalgia rheumatica; I48.0 Paroxysmal atrial fibrillation
CPT/HCPCS: 36415; 80053; 80061; 80076; 82248; 84443; 85027; 85652; 86140

== ENCOUNTER → 2022-08-19 09:56 | Outpatient (BNVA) | payer MEDICARE, SELFPAY | PROVIDERS: PCP Physician Assistant; Visit Provider Hospitalist | DX: J41.0 Simple chronic bronchitis (principal); J43.2 Centrilobular emphysema; J96.11 Chronic respiratory failure with hypoxia; K21.9 Gastro-esophageal reflux disease without esophagitis; G47.33 Obstructive sleep apnea (adult) (pediatric); Z99.89 Dependence on other enabling machines and devices; Z79.899 Other long term (current) drug therapy | CPT/HCPCS: 99212 ==

== ENCOUNTER → 2022-08-29 15:26 | Outpatient (BNVA) | payer MEDICARE, SELFPAY | PROVIDERS: PCP Physician Assistant; Visit Provider Internal Medicine | DX: R94.31 Abnormal electrocardiogram [ECG] [EKG] (principal); I48.0 Paroxysmal atrial fibrillation | CPT/HCPCS: 93005 ==

== ENCOUNTER → 2022-09-03 09:57 | Outpatient (BNVA) | payer MEDICARE, SELFPAY | PROVIDERS: PCP Physician Assistant; Visit Provider Internal Medicine | DX: I48.0 Paroxysmal atrial fibrillation (principal); Z79.01 Long term (current) use of anticoagulants; Z51.81 Encounter for therapeutic drug level monitoring | CPT/HCPCS: 85610; 99211 ==

== ENCOUNTER → 2022-09-05 10:07 | Outpatient (BNVA) | payer MEDICARE, SELFPAY | PROVIDERS: PCP Physician Assistant; Visit Provider Orthopaedic Surgery | DX: M17.0 Bilateral primary osteoarthritis of knee (principal); M25.562 Pain in left knee; M25.561 Pain in right knee | CPT/HCPCS: 20610; 99212; J1100 ==

== ENCOUNTER → 2022-09-10 10:51 | Outpatient (REF) | payer MEDICARE, SELFPAY ==
--- NOTE | 2022-09-10 10:56 | HM_ITS ---
Conclusion: 1. Patient was monitored for total period of 2 days and 23 hours 2. Baseline rhythm was normal sinus rhythm with average heart rate of 70 beats per minute 3. No significant pauses or bradycardia noted 4. Total of 1734 PVCs accounting for 0.53% of total beats account for occasional PVCs 5. Patient reported 1 event that correlated with sinus rhythm MTDD
== END ==
LOC: HO.CARD 10:51
PROVIDERS: PCP Physician Assistant; Visit Provider Internal Medicine
DX: I48.0 Paroxysmal atrial fibrillation (principal)
CPT/HCPCS: 93242

== ENCOUNTER 2022-09-14 13:24 | Emergency (ER) | payer MEDICARE, SELFPAY ==
--- NOTE | ~2022-09-14 | US_ITS ---
EXAMINATION: US VENOUS ULTRASOUND WITH DOPPLER LOWER EXTREMITY, LEFT CLINICAL INFORMATION: Left lower extremity pitting edema. COMPARISON: None TECHNIQUE: Ultrasound of the deep veins is performed from the hip to the calf with compression sonography and color and pulse Doppler assessment. Spectral analysis with color-flow imaging is performed. FINDINGS: There is normal venous compression and respiratory variation and augmented flow. The visualized common femoral vein, superficial femoral vein, profunda femoral vein, popliteal vein, and the trifurcation region shows no evidence of deep venous thrombosis. No left popliteal cyst. Mild to moderate subcutaneous edema in the left calf. If the patient's symptoms persist, followup ultrasound in 5 days 7 days might be of value to exclude proximal propagation from a non-visualized calf vein. US/US venous duplex LE IMPRESSION: 1. No evidence for deep venous thrombosis in the visualized veins of the left lower extremity. 2. Mild to moderate subcutaneous edema in the left calf.
--- NOTE | ~2022-09-14 | XR_ITS ---
EXAMINATION: XR KNEE, LEFT CLINICAL INFORMATION: Left knee pain COMPARISON: 12/04/2020 TECHNIQUE: 5 views of the left knee. FINDINGS: No fracture or dislocation. Mild degenerative disease again noted. Diffuse osteopenia. Chronic soft tissue edema. XR/XR knee LT 3V IMPRESSION: No acute disease. Chronic soft tissue edema.
[2022-09-14 13:29] VITALS: BP 150/70; PULSE 90; RESP 22; TEMP 36.6; O2SAT 93; BMI 45.4
--- NOTE | 2022-09-14 14:44 | ED_ITS ---
HPI - Extremity Injury (Lower) General Chief Complaint: Extremity Injury, Lower Stated Complaint: knee pain Time Seen by Provider: 09/14/22 14:44 Source: patient Mode of arrival: ambulatory History of Present Illness HPI Narrative: 71-year-old female with a past medical history of osteoarthritis, cardiomyopathy, COPD on chronic O2, HLD, CHRISTIANO on CPAP, proximal AFib, on Coumadin, presenting to the ED complaining of acute on chronic left knee pain. Admits had steroid injections on the , however pain has been worsening with difficulty ambulating secondary to pain. Also reports left leg edema. Denies fever, chills, injury/trauma or fall, numbness/tingling, SOB Onset (ago): week(s) Related Data Home Medications Medication Instructions Recorded Confirmed cetirizine 10 mg tablet (Allergy 10 mg PO DAILY 11/15/20 09/14/22 Relief (cetirizine)) gabapentin 800 mg tablet 800 mg PO TID 05/29/22 09/14/22 albuterol sulfate 2.5 mg/3 mL 2.5 mg inhalation Q4H PRN 09/14/22 09/14/22 (0.083 %) solution for nebulization Respiratory Distress amiodarone 200 mg tablet 100 mg PO MOWEFR@0900 09/14/22 09/14/22 rosuvastatin 5 mg tablet 5 mg PO BEDTIME 09/14/22 09/14/22 warfarin 2.5 mg tablet 2.5 mg PO MO@1800 09/14/22 09/14/22 warfarin 5 mg tablet 5 mg PO SUTUWETHFRSA@1800 09/14/22 09/14/22 Previous Rx's Medication Instructions Recorded potassium chloride 20 mEq 20 meq PO DAILY #90 tabs 07/10/21 tablet,extended release methylcellulose (laxative) 500 mg 1,000 mg PO DAILY #60 tabs 04/16/22 tablet (Citrucel) budesonide 0.5 mg/2 mL suspension 0.5 mg (2 mL) inhalation BID #360 05/30/22 for nebulization mL losartan 25 mg tablet 25 mg PO DAILY 30 days #30 tabs 07/22/22 miscellaneous medical supply #1 ea 07/22/22 (Blood Pressure Cuff) nystatin 100,000 unit/gram topical 1 appl topical DAILY 10 days #30 07/22/22 cream grams baclofen 10 mg tablet 10 mg PO BID #60 tabs 08/19/22 mupirocin 2 % topical ointment 1 appl topical TID #22 grams 08/19/22 digoxin 125 mcg (0.125 mg) tablet 125 mcg PO DAILY #90 tabs 08/29/22 (Digox) diltiazem HCl 360 mg 360 mg PO DAILY #90 caps 08/29/22 capsule,extended release 24 hr Allergies Allergy/AdvReac Type Severity Reaction Status Date / Time latex [LATEX] Allergy Intermediate RASH Verified 09/03/22 09:58 GUILLERMO Inhibitors Allergy Mild cough Verified 09/03/22 09:58 varenicline [From Chantix] Allergy Mild hives Verified 09/03/22 09:58 barium sulfate AdvReac Mild burn on Verified 09/03/22 09:58 face nicotine AdvReac Mild rash Verified 09/03/22 09:58 lisinopril AdvReac cough Verified 09/03/22 09:58 seasonal Allergy Mild seasonal Uncoded 09/03/22 09:58 allergies watermelon rind AdvReac Intermediate Cough Uncoded 09/03/22 09:58 Review of Systems Review of Systems: Constitutional: No Fever, No Chills, No Night Sweats, No Fatigue, No Malaise ENT/Mouth:No Ear Pain, No Nasal Congestion, No sore throat, No Rhinorrhea, No Swallowing Difficulty Eyes: No Eye Pain, No Swelling, No Redness, No Discharge, No Vision Changes Cardiovascular: No Chest Pain, No SOB, No Dyspnea on Exertion, No Orthopnea, + Edema, No Palpitations Respiratory: No Cough, No Sputum, No Dyspnea Gastrointestinal: No Nausea, No Vomiting, No Diarrhea, No Constipation, No Abdominal pain Genitourinary: No Dysuria, No Urinary Frequency, No Hematuria, No Urgency, No Flank Pain, No Urinary Flow Changes, No Hesitancy Musculoskeletal: + joint pain, No Myalgias, + Joint Swelling Skin: No Skin Lesions, No rash Neuro: No Weakness, No Numbness, No Paresthesias, No Headache Yes all other systems are reviewed and are negative Constitutional: Constitutional: Reports as per [facility] Past Medical History Attestation statement: The following information was validated with the patient. Medical History Abdominal pain Acute and chronic respiratory failure Aortic aneurysm Arthralgia Arthropathy of cervical spine Atelectasis Cardiomyopathy Chronic respiratory failure COPD (chronic obstructive pulmonary disease) COPD (chronic obstructive pulmonary disease) COPD (chronic obstructive pulmonary disease) Hyperlipidemia NICM (nonischemic cardiomyopathy) CHRISTIANO on CPAP Paroxysmal A-fib Surgical History History of bilateral cataract extraction History of esophagogastroduodenoscopy (EGD) Hx of cholecystectomy Hx of dilation and curettage Hx of hysterectomy Trigger finger of thumb Family History Family History Father CHF (congestive heart failure) PNA (pneumonia) Dementia Diabetes HTN (hypertension) Family history of diabetes mellitus Mother CHF (congestive heart failure) MRSA (methicillin resistant Staphylococcus aureus) Son Afib Son Psoriasis Arthritis Daughter Hypothyroid Fibromyalgia Brother No problems noted. Brother No problems noted. Sister No problems noted. Social History Social History Household Members: Spouse and Children Household Members Other:: Daughter Amy, and Remy Housing: House Do you presently have visiting nurse or other home services: No Alcohol intake: current Alcohol intake frequency: holidays/special occasions only Alcohol type: beer and hard liquor Patient Tobacco Use Status: Former Tobacco user Quit Date: 09/20/2019 Cigarette Packs Per Day: 1 Cigarettes Per Day: 20.0 Years Smoked: 50yrs e-Cigarette/Vaping Use: Never Used Second Hand Smoke Exposure: No Substance Use Type: Marijuana Advance Directives: No Advance Directives Information Provided: No Advance Directives Date on File: 10/27/16 service: No Current occupational status: retired Cognitive needs: Yes Hearing needs: No Vision needs: Yes Physical Exam Vital Signs: Vital Signs: Last Vital Signs Temp 97.7 F 09/14/22 19:44 Pulse 80 09/14/22 19:44 Resp 18 09/14/22 15:39 BP 112/57 L 09/14/22 19:44 Pulse Ox 94 09/14/22 19:44 O2 Del Method 09/14/22 19:44 O2 Flow Rate 2 09/14/22 19:44 BMI result Body Mass Index 45.4 Const: General: cooperative and no acute distress Orientation/consciousness: patient oriented x3 Limitations: no limitations HEENT: Head: Yes normal to inspection and Yes atraumatic Ears: hearing grossly normal bilaterally General nose exam: Normal external nose present Face and sinus: Yes normal facial exam Eyes: General: appearance normal, both eyes and all related structures EOM: EOMs intact bilaterally Neck: Neck: Yes normal visual inspection and Yes no meningeal signs Resp: Effort & Inspection: normal respiratory effort and no respiratory distress Auscultation: clear to auscultation bilaterally, no crackles, no rales, no rhonchi and no wheezes Cardio: Rate: regular rate Heart sounds: S1 normal heart sound present and S2 normal heart sound present Peripheral pulses: Peripheral pulses 2+ throughout GI: Inspection: Yes normal to inspection Palpation (GI): Soft to palpation, nontender, no guarding and not rigid Skin: Rashes: no rashes Wounds: no wounds Neuro: General: patient oriented x3, tone normal and no meningeal signs Extrem: Other: + chronic left knee swelling with diffuse tenderness. No erythema, limited knee ROM secondary to pain. Neurovascularly intact distally. Bilateral lower extremity edema greater on the left Course Course Course Narrative: XR knee LT 3V IMPRESSION: No acute disease. Chronic soft tissue edema. ? -no leukocytosis. INR therapeutic. -1639--labs otherwise unremarkable. BNP 92 US venous duplex LE LT IMPRESSION: 1.? No evidence for deep venous thrombosis in the visualized veins of the left lower extremity. 2.? Mild to moderate subcutaneous edema in the left calf. -1650--patient reports minimal symptomatic improvement after Tramadol. Does have pain management appointment in September. Patient states she has many stairs at home, does not know how she will get around. Is not interested in going to a rehab, but is interested in home PT. PT/case management consult placed. Physician observation initiated -2100--ED care transferred to Dr. Poole pending PT/case management Medications Administered Discontinued Medications Generic Name Dose Route Start Last Admin Trade Name Freq PRN Reason Stop Dose Admin Tramadol HCl 50 mg 09/14/22 14:52 09/14/22 15:39 Tramadol Hcl 50 Mg Tablet PO 09/14/22 14:53 50 mg ONCE ONE Administration MDM - Extremity Injury (Lower) MDM Narrative Medical decision making narrative: 71-year-old female with a past medical history of osteoarthritis, cardiomyop athy, COPD on chronic O2, HLD, CHRISTIANO on CPAP, proximal AFib, on Coumadin, presenting to the ED complaining of acute on chronic left knee pain. On exam NAD, nontoxic appearing, physical exam as above with diffuse left knee tenderness and bilateral lower extremity pitting edema greater on the left. Co ncern for acute on chronic osteoarthritis vs DVT. No evidence of infection, low concern for septic joint/arthritis. Lower suspicion for CHF Plan: X-ray, venous duplex ultrasound, labs/INR check Medical Records Attestation: I reviewed the patient's medical records. Lab Data Attestation: I reviewed the patient's lab results. Result diagrams: 09/14/22 15:07 09/14/22 15:07 Labs: Lab Results 09/14/22 09/14/22 09/14/22 Range/Units 15:07 15:07 15:07 WBC 9.2 (4.8-10.8) X10*3/uL RBC 4.28 (4.20-5.50) X10*6/uL Hgb 13.2 (12.0-16.0) g/dl Hct 41.1 (37.0-47.0) % MCV 96.0 (80.0-98.0) fL MCH 30.8 (27.0-33.0) pg MCHC 32.1 (31.0-35.0) g/dl RDW 13.6 (11.0-16.0) % Plt Count 311 (160-400) X10*3/uL MPV 9.2 L (9.4-12.3) fL Immature Gran % (Auto) 1.1 H (0.0-0.4) % Neut % (Auto) 63.6 (45-73) % Lymph % (Auto) 22.2 (20-40) % [place] % (Auto) 10.9 (2-11) % Eos % (Auto) 1.8 (0-4) % Baso % (Auto) 0.4 (0-2) % Lymph # (Auto) 2.0 (1.2-4.9) X10*3/uL [place] # (Auto) 1.0 (0.1-1.2) X10*3/uL Eos # (Auto) 0.2 (0.0-0.4) X10*3/uL Baso # (Auto) 0.0 (0.0-0.2) X10*3/uL Abs Immat Gran (auto) 0.10 H (0.00-0.03) X10*3/uL Absolute Neuts (auto) 5.8 (2.0-8.3) x10*3/uL Absolute Nucleated RBC 0.000 (0.0-0.012) X10*3/uL Nucleated RBC % (auto) 0.0 (0.0-0.2) /100WBC PT 36.2 H (10.0-13.1) SEC INR 3.0 H (0.9-1.1) Sodium (135-145) mmol/L Potassium (3.3-5.1) mmol/L Chloride (96-108) mmol/L Carbon Dioxide (22-29) mmol/L Anion Gap (12-20) BUN (9-16) mg/dL Creatinine (0.5-1.4) mg/dL Estim Creat Clear Calc Estimated GFR Random Glucose (60-115) mg/dL Calcium (8.4-10.2) mg/dL Total Bilirubin (0.0-1.0) mg/dL Direct Bilirubin (0.0-0.5) mg/dL AST (5-31) U/L ALT (0-31) U/L Alkaline Phosphatase (39-117) U/L B-Natriuretic Peptide 92 (<100) pg/mL Total Protein (6.5-8.0) g/dL Albumin (3.5-5.0) g/dL 09/14/22 Range/Units 15:07 WBC (4.8-10.8) X10*3/uL RBC (4.20-5.50) X10*6/uL Hgb (12.0-16.0) g/dl Hct (37.0-47.0) % MCV (80.0-98.0) fL MCH (27.0-33.0) pg MCHC (31.0-35.0) g/dl RDW (11.0-16.0) % Plt Count (160-400) X10*3/uL MPV (9.4-12.3) fL Immature Gran % (Auto) (0.0-0.4) % Neut % (Auto) (45-73) % Lymph % (Auto) (20-40) % [place] % (Auto) (2-11) % Eos % (Auto) (0-4) % Baso % (Auto) (0-2) % Lymph # (Auto) (1.2-4.9) X10*3/uL [place] # (Auto) (0.1-1.2) X10*3/uL Eos # (Auto) (0.0-0.4) X10*3/uL Baso # (Auto) (0.0-0.2) X10*3/uL Abs Immat Gran (auto) (0.00-0.03) X10*3/uL Absolute Neuts (auto) (2.0-8.3) x10*3/uL Absolute Nucleated RBC (0.0-0.012) X10*3/uL Nucleated RBC % (auto) (0.0-0.2) /100WBC PT (10.0-13.1) SEC INR (0.9-1.1) Sodium 143 (135-145) mmol/L Potassium 4.4 (3.3-5.1) mmol/L Chloride 101 (96-108) mmol/L Carbon Dioxide 30 H (22-29) mmol/L Anion Gap 16 (12-20) BUN 18 H (9-16) mg/dL Creatinine 1.15 (0.5-1.4) mg/dL Estim Creat Clear Calc 55.6 Estimated GFR 46 Random Glucose 93 (60-115) mg/dL Calcium 9.6 (8.4-10.2) mg/dL Total Bilirubin 0.5 (0.0-1.0) mg/dL Direct Bilirubin 0.2 (0.0-0.5) mg/dL AST 16 (5-31) U/L ALT 14 (0-31) U/L Alkaline Phosphatase 86 (39-117) U/L B-Natriuretic Peptide (<100) pg/mL Total Protein 6.5 (6.5-8.0) g/dL Albumin 3.8 (3.5-5.0) g/dL Discharge Plan Discharge Clinical Impression: Osteoarthritis, Pedal edema Patient Disposition: Still a Patient Prescriptions: No Action budesonide 0.5 mg/2 mL suspension for nebulization 0.5 mg inhalation BID Qty: 360 0RF diltiazem HCl 360 mg capsule,extended release 24hr 360 mg PO DAILY Qty: 90 3RF digoxin [Digox] 125 mcg (0.125 mg) tablet 125 mcg PO DAILY Qty: 90 3RF rosuvastatin 5 mg tablet 5 mg PO BEDTIME albuterol sulfate 2.5 mg /3 mL (0.083 %) Solution For Nebulization 2.5 mg INHALATION Q4H PRN (Reason: Respiratory Distress) amiodarone 200 mg tablet 100 mg PO MOWEFR@0900 warfarin 5 mg tablet 5 mg PO SUTUWETHFRSA@1800 Protocol: Dose Management Condition: Friday (Week One) Dose/Route: 5 mg Instruction: 1 x 5 mg tablet Condition: Friday Dose/Route: 2.5 mg Instruction: 0.5 x 5 mg tablets Condition: Friday Dose/Route: 5 mg Instruction: 1 x 5 mg tablet Condition: Friday Dose/Route: 5 mg Instruction: 1 x 5 mg tablet Condition: Dose/Route: 5 mg Instruction: 1 x 5 mg tablet Condition: Friday Dose/Route: 5 mg Instruction: 1 x 5 mg tablet Condition: Friday Dose/Route: 5 mg Instruction: 1 x 5 mg tablet Condition: Friday (Week Two) Dose/Route: 5 mg Instruction: 1 x 5 mg tablet Condition: Friday Dose/Route: 2.5 mg Instruction: 0.5 x 5 mg tablets Condition: Friday Dose/Route: 5 mg Instruction: 1 x 5 mg tablet Condition: Friday Dose/Route: 5 mg Instruction: 1 x 5 mg tablet Condition: Dose/Route: 5 mg Instruction: 1 x 5 mg tablet Condition: Friday Dose/Route: 5 mg Instruction: 1 x 5 mg tablet Condition: Friday Dose/Route: 5 mg Instruction: 1 x 5 mg tablet Protocol Text: Adjustment Start Date: Friday09/03/22 INR Value: 2.2 INR Date: 09/03/22 Recheck Date: 09/17/22 Additional Instructions: INR is in range continue usual dosing balance greens and reds in diet warfarin 2.5 mg Tablet 2.5 mg PO MO@1800 potassium chloride 20 mEq tablet extended release 20 meq PO DAILY Qty: 90 2RF (DME) Blood Pressure Cuff Misc See Rx Instructions .ROUTE .MEDSUPPLY Qty: 1 0RF Rx Instructions: As directed nystatin 100,000 unit/gram cream 1 appl topical DAILY 10 Days Qty: 30 1RF losartan 25 mg tablet 25 mg PO DAILY 30 Days Qty: 30 3RF cetirizine [Allergy Relief (cetirizine)] 10 mg tablet 10 mg PO DAILY mupirocin 2 % ointment 1 appl topical TID Qty: 22 0RF baclofen 10 mg tablet 10 mg PO BID Qty: 60 6RF Citrucel 500 mg tablet 1,000 mg PO DAILY Qty: 60 3RF gabapentin 800 mg tablet 800 mg PO TID
[2022-09-14 15:17] LABS: MANUAL DIFF FLAG NO
[2022-09-14 15:18] LABS: Basophils Percent Auto 0.4 % (0-2); Eosinophils Absolute Auto 0.2 X10*3/uL (0.0-0.4); Eosinophils Percent Auto 1.8 % (0-4); Hematocrit 41.1 % (37.0-47.0); Hemoglobin 13.2 g/dl (12.0-16.0); Imm Gran Pct Auto 1.1 % (0.0-0.4); Lymphocytes Percent Auto 22.2 % (20-40); Mean Corpuscular HGB Conc 32.1 g/dl (31.0-35.0); Mean Corpuscular Hemoglobin 30.8 pg (27.0-33.0); Mean Platelet Volume 9.2 fL (9.4-12.3); Monocytes Percent Auto 10.9 % (2-11); Neutrophils Absolute Auto 5.8 x10*3/uL (2.0-8.3); Neutrophils Percent Auto 63.6 % (45-73); Platelet Count 311 X10*3/uL (160-400); Red Blood Count 4.28 X10*6/uL (4.20-5.50); Red Cell Distribution Width 13.6 % (11.0-16.0); White Blood Count 9.2 X10*3/uL (4.8-10.8)
[2022-09-14 15:34] LABS: Prothrombin Time 36.2 SEC (10.0-13.1)
[2022-09-14 15:39] VITALS: BP 129/65; PULSE 87; RESP 18; TEMP 36.6; O2SAT 96
[2022-09-14] MEDS: traMADoL HCL 50 MG TABLET PO (15:39)
[2022-09-14 15:49] LABS: B Type Natriuretic Peptide 92 pg/mL (<100)
[2022-09-14 15:50] LABS: Alanine Aminotransferase 14 U/L (0-31); Albumin Level 3.8 g/dL (3.5-5.0); Alkaline Phosphatase 86 U/L (39-117); Anion Gap 16 (12-20); Aspartate Amino Transferase 16 U/L (5-31); Bilirubin Direct 0.2 mg/dL (0.0-0.5); Bilirubin Total 0.5 mg/dL (0.0-1.0); Blood Urea Nitrogen 18 mg/dL (9-16); Calcium 9.6 mg/dL (8.4-10.2); Carbon Dioxide 30 mmol/L (22-29); Chloride 101 mmol/L (96-108); Creatinine Clr Calc Pharmacy 55.6; Estimated Glomerular Filt Rate 46; Glucose Random 93 mg/dL (60-115); Potassium 4.4 mmol/L (3.3-5.1); Sodium 143 mmol/L (135-145); Total Protein 6.5 g/dL (6.5-8.0)
--- NOTE | 2022-09-14 18:55 | PHA.MEDREC ---
MED REC COMPLETE, NO ISSUES Pharmacy Consult ? Medication Reconciliation Pharmacy has completed the medication reconciliation.
[2022-09-14 19:44] VITALS: BP 112/57; PULSE 80; TEMP 36.5; O2SAT 94
[2022-09-14 21:43] VITALS: BP 127/55; PULSE 81; TEMP 36.6; O2SAT 93
[2022-09-15] VITALS (9 sets, daily range): BP systolic 126–150; BP diastolic 56–76; PULSE 76–81; RESP 14–18; TEMP 36.4–37.1; O2SAT 93–98
[2022-09-15] MEDS: traMADoL HCL 50 MG TABLET PO (01:01)
--- NOTE | 2022-09-15 04:18 | PC.NURSE ---
pt complain of leg pain, pt cant walk or bear weight on her leg, she yells when u move her leg, she has a pure wick in, pt is resting now
--- NOTE | 2022-09-15 05:26 | PC.NURSE ---
this rn assisted pt to sitting up in bed. pt requested removal of pillow from under L leg. pt reports feeling more comfortable in this position at this time
[2022-09-15] MEDS: Potassium Chloride ER 20 MEQ TAB.ER.PRT PO (09:21)
[2022-09-15] MEDS: Loratadine 10 MG TABLET PO (09:23)
[2022-09-15] MEDS: Baclofen 10 MG TABLET PO ×2 (09:23→21:57)
[2022-09-15] MEDS: Losartan Potassium 25 MG TABLET PO (09:23)
[2022-09-15] MEDS: Gabapentin 400 MG CAPSULE 800 MG PO ×3 (09:23→21:57)
[2022-09-15] MEDS: dilTIAZem HCL CD 180 MG CAP.ER.24H 360 MG PO (09:24)
[2022-09-15] MEDS: calcium polycarbophiL TABLET 1000 TAB PO (09:24)
[2022-09-15] MEDS: Digoxin 0.125 MG TABLET PO (09:24)
--- NOTE | 2022-09-15 09:31 | PC.NURSE ---
medicated as ordered, eating breakfast and awaiting pt eval, not able to ambulate, pleasant, skin wpd, nad
[2022-09-15 10:51] LABS: INTERNATIONAL NORM RATIO 2.6 (0.9-1.1); Prothrombin Time 31.4 SEC (10.0-13.1)
--- NOTE | 2022-09-15 15:43 | PC.NURSE ---
this pct assumed care of pt at 1500 ,vs taken ,pt is clean and dry needs are met ,call [facility] within reach ,pt watching television .
[2022-09-15] MEDS: Warfarin Sodium 5 MG TABLET PO (18:32)
--- NOTE | 2022-09-15 19:35 | PC.NURSE ---
PT WAS GIVEN DINNER ,PT ATE 50 % OF MEAL ,DRANK 240 ML DIOGENES EZ ,PT WAS ASSISTED BY WHEELED CHAIR TO BATHROOM AND VOIDED LARGE AMOUNT ON TOILET .PATIENT DOES NOT WANT TO USE PUREWICK .
--- NOTE | 2022-09-15 20:13 | PC.NURSE ---
ASSUMED CARE OF PATIENT AT 1900 - PATIENT ASSISTED TO BATHROOM USING WHEELCHAIR BY THIS RN
[2022-09-15] MEDS: Atorvastatin Calcium 20 MG TABLET PO (21:57)
--- NOTE | 2022-09-15 21:59 | PC.NURSE ---
bedtime meds given w/ no issues. patient resting comfortably on stretcher. wearing baseline O2 NC, call [facility] within reach. will continue to monitor
--- NOTE | 2022-09-15 22:08 | PC.NURSE ---
pt was assisted to bathroom in wheeled chair and back to bed ,pt voided large amount of urine ,2200 vs taken call [facility] within reach .
[2022-09-16] MEDS: traMADoL HCL 50 MG TABLET PO
--- NOTE | 2022-09-16 00:01 | PC.NURSE ---
pt given po tramadol per request for 10/10 pain to L knee radiating up towards thigh. patient states she thinks she is in so much pain because she has been going from bed to wheelchair to restroom throughout the day today. patient to see PT in AM.
[2022-09-16 05:58] VITALS: BP 124/58; PULSE 83; RESP 18; TEMP 36.4; O2SAT 93
[2022-09-16 06:12] LABS: INTERNATIONAL NORM RATIO 2.3 (0.9-1.1); Prothrombin Time 27.2 SEC (10.0-13.1)
--- NOTE | 2022-09-16 07:25 | PC.NURSE ---
pt received in bed, alert and orient. MARLEEN follows commands, speech clear and coherent. Lungs with delayed expiratory wheezes. Pt states breathing within normal limits for her. Concern of pain in left knee and thigh. Some +1 edema to LE, states better than usual. Plan is for PT to see patient.
[2022-09-16 07:57] VITALS: BP 137/72; PULSE 78; RESP 16; TEMP 36.6; O2SAT 96
[2022-09-16] MEDS: Baclofen 10 MG TABLET PO (08:21)
[2022-09-16] MEDS: Potassium Chloride ER 20 MEQ TAB.ER.PRT PO (08:22)
[2022-09-16] MEDS: Digoxin 0.125 MG TABLET PO (08:22)
[2022-09-16] MEDS: Gabapentin 400 MG CAPSULE 800 MG PO (08:22)
[2022-09-16] MEDS: Losartan Potassium 25 MG TABLET PO (08:22)
[2022-09-16] MEDS: Loratadine 10 MG TABLET PO (08:22)
[2022-09-16] MEDS: dilTIAZem HCL CD 180 MG CAP.ER.24H 360 MG PO (08:22)
[2022-09-16] MEDS: Amiodarone HCL 200 MG TABLET 100 MG PO (08:23)
[2022-09-16 09:33] VITALS: BP 137/72; PULSE 78; O2SAT 96
--- NOTE | 2022-09-16 09:50 | PC.NURSE ---
Pt got up on her own to commode, voided in commode, performed melinda care, and assisted getting dressed.
[2022-09-16] MEDS: calcium polycarbophiL TABLET 1000 TAB PO (10:09)
[2022-09-16] MEDS: Mupirocin 2 % Oint 22 GM TUBE 1 APPL TOPICAL (10:10)
[2022-09-16] MEDS: Nystatin Cream 15 GM TUBE 1 APPL TOPICAL (10:10)
--- NOTE | 2022-09-16 10:20 | MHC.CM.ED ---
Received case management consult over the weekend. Patient came to the ER due to left knee pain. Work up essentially negative. Physical therapy eval completed. Home therapy is recommended. Met with patient in regards to discharge planning. Patient lives with her and daughter, ambulates with a rollator and is active with [facility] for oxygen. PCP verified. HCP completed, signed and witnessed. Original given to patient. Copy placed in chart. Patient received 2 Moderna vaccines and 2 Pfizer boosters. Patient agreeable to referral to [facility] for physical therapy. Patient lives and daughter can help patient get into her home which has 3 steps on the porch and then 1 step in. Patient, Urmila RN and Kaur CASH PROCESSING SPECIALIST aware and agreeable to discharge plan. Continue to monitor for d/c needs.
[2022-09-16 10:25] VITALS: BP 147/67; PULSE 88; RESP 16; TEMP 36.7; O2SAT 95
== END 2022-09-16 10:32 | disposition home or self-care (01) ==
PROVIDERS: Nurse Practitioner Family; Physician Assistant; Emergency Provider Emergency Medicine Emergency Medical Services; PCP Physician Assistant
DX: G89.29 Other chronic pain (principal); M25.562 Pain in left knee; M17.12 Unilateral primary osteoarthritis, left knee; R60.0 Localized edema; E78.5 Hyperlipidemia, unspecified; I48.0 Paroxysmal atrial fibrillation; J44.9 Chronic obstructive pulmonary disease, unspecified; Z99.81 Dependence on supplemental oxygen; E66.01 Morbid (severe) obesity due to excess calories; Z68.42 Body mass index [BMI] 45.0-49.9, adult; Z79.01 Long term (current) use of anticoagulants; Z79.02 Long term (current) use of antithrombotics/antiplatelets; Z79.899 Other long term (current) drug therapy
CPT/HCPCS: 36415; 73562; 80048; 80076; 83880; 85025; 85610; 93971; 97161; 99284; 99285

== ENCOUNTER → 2022-10-15 09:48 | Outpatient (BNVA) | payer MEDICARE, SELFPAY | PROVIDERS: PCP Physician Assistant; Visit Provider Nurse Practitioner Family | DX: M81.0 Age-related osteoporosis without current pathological fracture (principal) | CPT/HCPCS: 96372; J0897 ==

== ENCOUNTER → 2022-10-16 09:51 | Outpatient (BNVA) | payer MEDICARE, SELFPAY | PROVIDERS: PCP Physician Assistant; Visit Provider Anesthesiology | DX: M47.816 Spondylosis without myelopathy or radiculopathy, lumbar region (principal); M17.0 Bilateral primary osteoarthritis of knee; E66.01 Morbid (severe) obesity due to excess calories; I48.0 Paroxysmal atrial fibrillation; Z79.01 Long term (current) use of anticoagulants | CPT/HCPCS: 99212 ==

== ENCOUNTER → 2022-10-17 09:52 | Outpatient (BNVA) | payer MEDICARE, SELFPAY | PROVIDERS: PCP Physician Assistant; Visit Provider Internal Medicine | DX: I48.0 Paroxysmal atrial fibrillation (principal); Z79.01 Long term (current) use of anticoagulants; Z51.81 Encounter for therapeutic drug level monitoring | CPT/HCPCS: 85610; 99211 ==

== ENCOUNTER → 2022-10-31 10:17 | Outpatient (BNVA) | payer MEDICARE, SELFPAY | PROVIDERS: PCP Physician Assistant; Visit Provider Internal Medicine | DX: I48.0 Paroxysmal atrial fibrillation (principal); Z79.01 Long term (current) use of anticoagulants; Z51.81 Encounter for therapeutic drug level monitoring | CPT/HCPCS: 85610; 99211 ==

== ENCOUNTER → 2022-11-21 09:51 | Outpatient (BNVA) | payer MEDICARE, SELFPAY | PROVIDERS: PCP Physician Assistant; Visit Provider Internal Medicine | DX: I48.0 Paroxysmal atrial fibrillation (principal); Z79.01 Long term (current) use of anticoagulants; Z51.81 Encounter for therapeutic drug level monitoring | CPT/HCPCS: 85610; 99211 ==

== ENCOUNTER 2022-11-27 08:19 | Outpatient (REF) | payer MEDICARE, SELFPAY ==
[2022-11-27 12:11] LABS: Alanine Aminotransferase 12 U/L (0-31); Alkaline Phosphatase 96 U/L (39-117); Anion Gap 15 (12-20); Aspartate Amino Transferase 15 U/L (5-31); Bilirubin Total 0.7 mg/dL (0.0-1.0); Blood Urea Nitrogen 21 mg/dL (9-16); Carbon Dioxide 33 mmol/L (22-29); Chloride 97 mmol/L (96-108); Estimated Glomerular Filt Rate 46; Glucose Random 119 mg/dL (60-115); Phosphorus 2.4 mg/dL (2.7-4.5); Potassium 3.4 mmol/L (3.3-5.1); Sodium 142 mmol/L (135-145); TSH reflex Free T4 2.12 uIU/mL (0.32-4.0); Total Protein 6.8 g/dL (6.5-8.0)
[2022-11-27 12:22] LABS: Vitamin D 25-OH Total 24.3 ng/mL (>30)
[2022-11-27 12:34] LABS: Alanine Aminotransferase 14 U/L (0-31); Alkaline Phosphatase 98 U/L (39-117); Aspartate Amino Transferase 16 U/L (5-31); Bilirubin Direct 0.2 mg/dL (0.0-0.5); Bilirubin Total 0.7 mg/dL (0.0-1.0); Total Protein 6.8 g/dL (6.5-8.0)
== END 2022-11-27 08:20 | disposition home or self-care (01) ==
LOC: HO.HMGCLDS 08:19
PROVIDERS: Internal Medicine; Absent Provider Physician Assistant; PCP Physician Assistant; Visit Provider Nurse Practitioner Family
DX: I48.0 Paroxysmal atrial fibrillation (principal); R74.8 Abnormal levels of other serum enzymes; M81.0 Age-related osteoporosis without current pathological fracture
CPT/HCPCS: 36415; 80053; 80076; 82248; 82306; 84100; 84443

== ENCOUNTER → 2022-12-05 09:42 | Outpatient (BNVA) | payer MEDICARE, SELFPAY | PROVIDERS: PCP Physician Assistant; Visit Provider Internal Medicine | DX: I48.0 Paroxysmal atrial fibrillation (principal); Z79.01 Long term (current) use of anticoagulants; Z51.81 Encounter for therapeutic drug level monitoring | CPT/HCPCS: 85610; 99212 ==

== ENCOUNTER 2022-12-10 06:17 | Outpatient (REF) | payer MEDICARE, SELFPAY ==
--- NOTE | ~2022-12-10 | FL_ITS ---
EXAMINATION: XR FLUOROSCOPY WITH IMAGES CLINICAL INFORMATION: M17.12 - Unilateral primary osteoarthritis, left knee COMPARISON: Radiographs left knee 09/14/2022 TECHNIQUE: Fluoroscopy Supervised By: Dr. Pb Anders. Fluoroscopy Time: 0.2 minutes. Cumulative Dose: 2.43 mGy. DAP: 0.662 Gycm2. Images: 2. FINDINGS: There are 2 spinal needles adjacent to the distal femoral shaft, both with tips at mid bony depth. There is a spinal needle overlying the proximal tibia with tip at mid depth. FL/FL guidance in treatment room IMPRESSION: Fluoroscopy for pain management procedures.
== END 2022-12-10 06:18 | disposition home or self-care (01) ==
LOC: CF 06:17
PROVIDERS: Visit Provider Anesthesiology
DX: M25.562 Pain in left knee (principal)
CPT/HCPCS: 64454

== ENCOUNTER → 2022-12-12 10:27 | Outpatient (BNVA) | payer MEDICARE, SELFPAY | PROVIDERS: PCP Physician Assistant; Visit Provider Anesthesiology | DX: M17.0 Bilateral primary osteoarthritis of knee (principal); M47.816 Spondylosis without myelopathy or radiculopathy, lumbar region; E66.01 Morbid (severe) obesity due to excess calories | CPT/HCPCS: 99212 ==

== ENCOUNTER → 2022-12-17 10:19 | Outpatient (BNVA) | payer MEDICARE, SELFPAY | PROVIDERS: PCP Physician Assistant; Visit Provider Internal Medicine | DX: I48.0 Paroxysmal atrial fibrillation (principal); Z79.01 Long term (current) use of anticoagulants; Z51.81 Encounter for therapeutic drug level monitoring | CPT/HCPCS: 85610; 99211 ==

== ENCOUNTER → 2022-12-23 10:25 | Outpatient (BNVA) | payer MEDICARE, SELFPAY | PROVIDERS: PCP Physician Assistant; Visit Provider Internal Medicine | DX: I48.0 Paroxysmal atrial fibrillation (principal); Z79.01 Long term (current) use of anticoagulants; Z51.81 Encounter for therapeutic drug level monitoring | CPT/HCPCS: 85610; 99211 ==

== ENCOUNTER 2023-01-02 10:30 | Day surgery (SDC) | payer MEDICARE, SELFPAY ==
--- NOTE | ~2023-01-02 | FL_ITS ---
EXAMINATION: XR FLUOROSCOPY WITH IMAGES CLINICAL INFORMATION: Genicular nerve RFA COMPARISON: Radiographs left knee 09/14/2022 TECHNIQUE: Fluoroscopy Supervised By: Dr. Pb Anders. Fluoroscopy Time: 0.3 minutes. Cumulative Dose: 5.08 mGy. DAP: 1.38 Gycm2. Images: 4. FINDINGS: There are spinal needles adjacent to the distal femoral shaft, medial and lateral sides, mid depth. There is a spinal needle adjacent to the proximal tibia on medial side mid depth. FL/FL guidance in OR IMPRESSION: Fluoroscopy for pain management procedures.
[2023-01-02 10:41] VITALS: BMI 43.9
[2023-01-02 10:56] VITALS: BP 148/80; PULSE 95; RESP 20; TEMP 36.4; O2SAT 96
--- NOTE | 2023-01-02 11:46 | P.HPSUR_ITS ---
Pre-Procedural Eval Section A Date of Service: 01/02/23 Changes since office visit: Yes Patient answered all questions The History & Physical has been completed within 30 days and I have reviewed it.: No Section B Chief Complaint: Pain in left knee,Unilateral primary osteoarthriti Details of Present Illness: as above Relevant Social History: None Present Medications: see Short Stay Collaborative assessment Medical History: Significant History History of Previous Operations: No relevant previous surgery Allergies: Allergies Allergy/AdvReac Type Severity Reaction Status Date / Time latex [LATEX] Allergy Intermediate RASH Verified 01/02/23 10:51 GUILLERMO Inhibitors Allergy Mild cough Verified 01/02/23 10:51 varenicline [From Chantix] Allergy Mild hives Verified 01/02/23 10:51 rosuvastatin AdvReac Intermediate Muscle Pain Verified 01/02/23 10:51 barium sulfate AdvReac Mild burn on Verified 01/02/23 10:51 face nicotine AdvReac Mild rash Verified 01/02/23 10:51 lisinopril AdvReac cough Verified 01/02/23 10:51 seasonal Allergy Mild seasonal Uncoded 01/02/23 10:51 allergies watermelon rind AdvReac Intermediate Cough Uncoded 01/02/23 10:51 Review of Systems Sugical H&P ROS: Negative: Cardiovascular, Respiratory, Neurological, Psychiatric, Hem-Onc, Allergic/Immunologic, Gastrointestinal, Genitourinary, Integumentary, Endocrine and Eyes/Ears/Nose/Throat and Yes, Specify: Consti tution (morbid obesity) and Musculoskeletal (osteoarthritis) Exam Surgical H&P Exam: Normal: HEENT, Normal: Heart, Normal: Lungs, Normal: Extremities, Normal: Skin and Normal: Neurological and Significant Findings: Abdomen (enlarged due to i/a & s/q fat) Plan Diagnosis/Plan: Unchanged I have reviewed the history and physical and performed a pertinent physical examination on my patient. No changes have occurred unless specified. Time Spent With Patient Time: Total time managing care of this patient today ____ minutes.
--- NOTE | 2023-01-02 12:39 | P.BOP_ITS ---
Brief Operative Note Date of Service: 01/02/23 Pre-op diagnosis: left knee pain Post-op diagnosis: same Procedure: left knee osteoarthritis Surgeon: Pb Anders MD Anesthesia: local Was an Environmental Laboratory Technician used for this Procedure?: No Estimated blood loss (mL): 2 Pathology: none sent Condition: stable Disposition: PACU
--- NOTE | 2023-01-02 12:44 | W.PM.OPN ---
Operative Note Operative Note Date of Service: 01/02/23 Narrative: KNEE GENICULAR NERVES COOLED RFA. Informed consent was obtained , the patient was brought to the OR and positioned supine on ORT. Time-out was performed delineating correct site, side, the nature of the procedure, patient's allergy, preoperative antibiotic if needed. All operating room staff was participating in OR time-out procedure. C-arm was brought over the operating field and picture of the left knee was demonstrated on the screen. Anterolateral and anteromedial surfaces of the knee were prepped with chloroprep and draped with sterile utility towels.The point of interest were delineated for: superior lateral genicular nerve as the confluence of the metaphysis of the femur with corresponding diaphysis on the lateral silhouette of the femur distal bone,For superior medial genicular nerve (suprapatelar saphenous nerve) the point of interest was delineated as the confluence of the silhouette of the metaphysis of the femur with corresponding diaphysis on the medial silhouette on the femoral distal bone. For inferior medial genicular nerve ( Infrapatellar saphenous nerve) the point of interest was delineated as the confluence of metaphysis of the proximal tibia on the medial side with corresponding diaphysis of the same bone. The projections of the points of interest on anterior surface of the left knee was injected with small amount of mixture of lidocaine 1% and ropivacaine 2% 1-to 2 ml. After that 3 cooled radiofrequency canulas 75 mm long were driven to the point of interest in tunnel vision fashion. When needles gently contacted the bones the position of the C-arm was switched to the lateral view, care was taken to superimpose the the femoral condyles of the knee one over the other. The position of the canulas were adjusted to assure that the tip of the canulas are located at the mid shaft of each of the above described bones. After that small amount of mixture of the same local anesthetic mixture as above and a trace amount of kenalog was injected into each canula position. total amount of local anesthetics was 4.5 cc. The cooled RFA machine was connected to the canulas in usual fashion and energy applied with temperature of the canulas of 60 degrees C, for the 2.5 minutes. When energy application was completed the canulas were removed and sterile dressing was applied. Patient went to PACU where he recovered uneventfully.
[2023-01-02 12:45] VITALS: BP 138/68; PULSE 86; RESP 20; TEMP 36.7; O2SAT 98
== END 2023-01-02 13:12 ==
LOC: HO.SSS 10:31
PROVIDERS: PCP Physician Assistant; Visit Provider Anesthesiology
PROC: (CPT 64624; principal; 2023-01-02 11:30)
DX: M25.562 Pain in left knee (principal); M17.12 Unilateral primary osteoarthritis, left knee; M47.816 Spondylosis without myelopathy or radiculopathy, lumbar region; E66.01 Morbid (severe) obesity due to excess calories; J44.9 Chronic obstructive pulmonary disease, unspecified; J96.20 Acute and chronic respiratory failure, unspecified whether with hypoxia or hypercapnia; I48.0 Paroxysmal atrial fibrillation; I71.9 Aortic aneurysm of unspecified site, without rupture; I42.8 Other cardiomyopathies; E78.5 Hyperlipidemia, unspecified; Z79.01 Long term (current) use of anticoagulants; Z79.899 Other long term (current) drug therapy; Z88.8 Allergy status to other drugs, medicaments and biological substances; Z91.040 Latex allergy status; Z91.041 Radiographic dye allergy status; Z87.891 Personal history of nicotine dependence
CPT/HCPCS: 64624; J2795; J3301

== ENCOUNTER → 2023-01-09 10:15 | Outpatient (BNVA) | payer MEDICARE, SELFPAY | PROVIDERS: PCP Physician Assistant; Visit Provider Internal Medicine | DX: I48.0 Paroxysmal atrial fibrillation (principal); Z79.01 Long term (current) use of anticoagulants; Z51.81 Encounter for therapeutic drug level monitoring | CPT/HCPCS: 85610; 99211 ==

== ENCOUNTER → 2023-01-15 10:27 | Outpatient (BNVA) | payer MEDICARE, SELFPAY | PROVIDERS: PCP Physician Assistant; Visit Provider Internal Medicine | DX: I48.0 Paroxysmal atrial fibrillation (principal); Z79.01 Long term (current) use of anticoagulants; Z51.81 Encounter for therapeutic drug level monitoring | CPT/HCPCS: 85610; 99211 ==

== ENCOUNTER → 2023-01-30 10:12 | Outpatient (BNVA) | payer MEDICARE, SELFPAY | PROVIDERS: PCP Physician Assistant; Visit Provider Internal Medicine | DX: I48.0 Paroxysmal atrial fibrillation (principal); Z79.01 Long term (current) use of anticoagulants; Z51.81 Encounter for therapeutic drug level monitoring | CPT/HCPCS: 85610; 99211 ==

== ENCOUNTER → 2023-02-05 10:16 | Outpatient (BNVA) | payer MEDICARE, SELFPAY | PROVIDERS: PCP Physician Assistant; Visit Provider Nurse Practitioner Family | DX: M81.0 Age-related osteoporosis without current pathological fracture (principal); M35.3 Polymyalgia rheumatica; M47.816 Spondylosis without myelopathy or radiculopathy, lumbar region | CPT/HCPCS: 99212 ==

== ENCOUNTER → 2023-02-06 08:48 | Outpatient (BNVA) | payer MEDICARE, SELFPAY | PROVIDERS: PCP Physician Assistant; Visit Provider Anesthesiology | DX: M47.816 Spondylosis without myelopathy or radiculopathy, lumbar region (principal); M17.0 Bilateral primary osteoarthritis of knee; M54.50 Low back pain, unspecified; E66.01 Morbid (severe) obesity due to excess calories; Z98.890 Other specified postprocedural states | CPT/HCPCS: 99212 ==

== ENCOUNTER → 2023-02-13 10:30 | Outpatient (BNVA) | payer MEDICARE, SELFPAY | PROVIDERS: PCP Physician Assistant; Visit Provider Internal Medicine | DX: I48.0 Paroxysmal atrial fibrillation (principal); Z79.01 Long term (current) use of anticoagulants; Z51.81 Encounter for therapeutic drug level monitoring | CPT/HCPCS: 85610; 99211 ==

== ENCOUNTER → 2023-02-19 09:46 | Outpatient (BNVA) | payer MEDICARE, SELFPAY | PROVIDERS: PCP Physician Assistant; Visit Provider Hospitalist | DX: J41.0 Simple chronic bronchitis (principal); J96.11 Chronic respiratory failure with hypoxia; K21.9 Gastro-esophageal reflux disease without esophagitis; G47.33 Obstructive sleep apnea (adult) (pediatric); Z99.89 Dependence on other enabling machines and devices; Z79.01 Long term (current) use of anticoagulants | CPT/HCPCS: 99212 ==

== ENCOUNTER → 2023-02-20 10:32 | Outpatient (BNVA) | payer MEDICARE, SELFPAY | PROVIDERS: PCP Physician Assistant; Referring Provider Physician Assistant; Visit Provider Internal Medicine | DX: I48.0 Paroxysmal atrial fibrillation (principal); I42.8 Other cardiomyopathies; I25.10 Atherosclerotic heart disease of native coronary artery without angina pectoris; I10 Essential (primary) hypertension; Z79.02 Long term (current) use of antithrombotics/antiplatelets; Z79.899 Other long term (current) drug therapy | CPT/HCPCS: 93005; 99212 ==

== ENCOUNTER 2023-03-17 11:52 | Outpatient (REF) | payer MEDICARE, SELFPAY ==
--- NOTE | ~2023-03-17 | XR_ITS ---
EXAMINATION: XR ELBOW, RIGHT CLINICAL INFORMATION: Pain COMPARISON: None available. TECHNIQUE: AP, lateral, and oblique views of the right elbow. FINDINGS: Bone alignment is normal. No fracture or dislocation. Joint spaces are normal. Small osteophytes projecting off the medial and lateral humeral epicondyles. Soft tissue calcifications adjacent to the posterior lateral humeral condyle. No joint effusion. XR/XR elbow RT 2V IMPRESSION: No fracture or dislocation. Degenerative changes with small osteophytes at the medial and lateral humeral epicondyles and soft tissue calcification posterior to the lateral humeral condyle.
== END 2023-03-17 11:53 | disposition home or self-care (01) ==
LOC: HO.HMGCX 11:52
PROVIDERS: PCP Physician Assistant; Visit Provider Nurse Practitioner Family
DX: M25.521 Pain in right elbow (principal)
CPT/HCPCS: 73070

== ENCOUNTER → 2023-03-21 09:52 | Outpatient (BNVA) | payer MEDICARE, SELFPAY | PROVIDERS: PCP Physician Assistant; Visit Provider Internal Medicine | DX: I48.0 Paroxysmal atrial fibrillation (principal); Z79.01 Long term (current) use of anticoagulants; Z51.81 Encounter for therapeutic drug level monitoring | CPT/HCPCS: 85610; 99211 ==

== ENCOUNTER 2023-03-28 07:50 | Outpatient (REF) | payer MEDICARE, SELFPAY ==
[2023-03-28 11:57] LABS: Hematocrit 39.4 % (37.0-47.0); Hemoglobin 12.8 g/dl (12.0-16.0); Mean Corpuscular HGB Conc 32.5 g/dl (31.0-35.0); Mean Corpuscular Hemoglobin 30.7 pg (27.0-33.0); Mean Corpuscular Volume 94.5 fL (80.0-98.0); Mean Platelet Volume 9.3 fL (9.4-12.3); Platelet Count 385 X10*3/uL (160-400); Red Blood Count 4.17 X10*6/uL (4.20-5.50); Red Cell Distribution Width 13.2 % (11.0-16.0); White Blood Count 7.3 X10*3/uL (4.8-10.8)
[2023-03-28 12:34] LABS: Alanine Aminotransferase 14 U/L (0-31); Albumin Level 3.8 g/dL (3.5-5.0); Alkaline Phosphatase 94 U/L (39-117); Anion Gap 16 (12-20); Aspartate Amino Transferase 13 U/L (5-31); Bilirubin Total 0.6 mg/dL (0.0-1.0); Blood Urea Nitrogen 18 mg/dL (9-16); Calcium 9.5 mg/dL (8.4-10.2); Carbon Dioxide 32 mmol/L (22-29); Chloride 96 mmol/L (96-108); Cholesterol 274 mg/dL; Estimated Glomerular Filt Rate 43; Glucose Fasting 97 mg/dL (60-99); Glucose Random 97 mg/dL (60-115); HDL Cholesterol 68 mg/dL; LDL Cholesterol Calculated 185 mg/dl; Potassium 3.1 mmol/L (3.3-5.1); Sodium 141 mmol/L (135-145); Total Protein 6.6 g/dL (6.5-8.0); Triglycerides 109 mg/dL
[2023-03-28 12:52] LABS: Vitamin D 25-OH Total 30.5 ng/mL (>30)
== END 2023-03-28 07:51 | disposition home or self-care (01) ==
LOC: HO.HMGCLDS 07:50
PROVIDERS: Absent Provider Nurse Practitioner Family; PCP Physician Assistant; Visit Provider Physician Assistant
DX: I10 Essential (primary) hypertension (principal); M81.0 Age-related osteoporosis without current pathological fracture
CPT/HCPCS: 36415; 80053; 80061; 82306; 85027

== ENCOUNTER 2023-04-07 11:00 | Outpatient (RCR) | payer MEDICARE, SELFPAY ==
--- NOTE | 2023-02-28 11:02 | MHC.PT.EP ---
[facility] [place] Office [place] Office [place] Office [address] [phone] F: [phone] F: [phone] F: [phone] F: [phone] Physical Therapy Plan of Care Date of Evaluation: Date of Surgery: none Diagnosis: low back pain Assessment: Patient is a 72 year old R handed female who presents with s/s consistent with low back pain. She does not work and has become fairly sedentary at this time. Patient past medical history is fairly complex and involves multiple location pain, nerve blocks, and AFib. Current impairments include pain, posture, ROM, strength, activity tolerance and functional mobility. Functional limitations include decreased ability to stand, walk, clean, and perform activities while standing. Patient is motivated with good rehab potential. Skilled PT will address impairments and functional limitations in order to achieve goals. 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 Manual therapy to restore motion and function. Therapeutic exercise to improve strength and flexibility. Neuromuscular re-education for posture and balance. Therapeutic activities to return to functional activities of daily living. Electronically signed by: Noah Gamez, PT Please sign and return to therapist. Thank you for your referral.
--- NOTE | 2023-04-11 12:57 | MHC.PT.DC ---
[facility] [place] Office [place] Office [place] Office [address] [place] [address] [phone] F: [phone] F: [phone] F: [phone] F: [phone] Physical Therapy Discharge Report Diagnosis: low back pain Date of Surgery: none Date of Evaluation: 02/28/23 Date of Discharge: 04/10/23 Treatments to Date: 4 Cancellations to Date: No Shows to Date: Discharge Status: Independent with HEP Discharge Summary: Pt is going to d/c to HEP at this time. She has had modest progress in PT and will continue exclusively with HEP at this time. 04/07/23: unable to progress today due to knee pain. we will attempt Nv. 04/03/23: pt has been demonstrated improved activity tolerance. we added stepper and standing today. no adverse reactions. assess response and progress as tolerated. 03/31/23: pt has been able to do more activity in last 2 appts. no adverse reactions today. we are limited by positional/activity tolerance at this time. but we will continue to attempt progress then discern plan moving forward in next 2-3 visits. 03/27/23: we held on progression today due to pt not being able to be consistent with PT due to other medical concerns. we will attempt to progress NV. 03/07/23: pt has been feeling about the same, limited by back pain/spasms and R knee pain. we have to be creative with positions for ex. Patient is a 72 year old R handed female who presents with s/s consistent with low back pain. She does not work and has become fairly sedentary at this time. Patient past medical history is fairly complex and involves multiple location pain, nerve blocks, and AFib. Current impairments include pain, posture, ROM, strength, activity tolerance and functional mobility. Functional limitations include decreased ability to stand, walk, clean, and perform activities while standing. Patient is motivated with good rehab potential. Skilled PT will address impairments and functional limitations in order to achieve goals. Electronically signed by: Noah Gamez, PT Please sign and return to therapist. Thank you for your referral.
== END 2023-04-11 12:58 | disposition home or self-care (01) ==
LOC: HO.PTCHIC 11:00
PROVIDERS: PCP Physician Assistant; Visit Provider Anesthesiology
DX: M54.50 Low back pain, unspecified (principal)
CPT/HCPCS: 97110; 97140; 97163

== ENCOUNTER → 2023-04-18 09:56 | Outpatient (BNVA) | payer MEDICARE, SELFPAY | PROVIDERS: PCP Physician Assistant; Visit Provider Internal Medicine | DX: I48.0 Paroxysmal atrial fibrillation (principal); Z79.01 Long term (current) use of anticoagulants; Z51.81 Encounter for therapeutic drug level monitoring | CPT/HCPCS: 85610; 99211 ==

== ENCOUNTER → 2023-04-22 09:45 | Outpatient (BNVA) | payer MEDICARE, SELFPAY | PROVIDERS: PCP Physician Assistant; Visit Provider Student in an Organized Health Care Education/Training Program | DX: M81.0 Age-related osteoporosis without current pathological fracture (principal) | CPT/HCPCS: 96372; J0897 ==

== ENCOUNTER → 2023-05-02 09:53 | Outpatient (BNVA) | payer MEDICARE, SELFPAY | PROVIDERS: PCP Physician Assistant; Visit Provider Internal Medicine | DX: I48.0 Paroxysmal atrial fibrillation (principal); Z79.01 Long term (current) use of anticoagulants; Z51.81 Encounter for therapeutic drug level monitoring | CPT/HCPCS: 85610; 99211 ==

== ENCOUNTER 2023-05-15 09:43 | Outpatient (AMB) | payer MEDICARE, SELFPAY ==
[2023-05-15 09:45] VITALS: BP 110/72; PULSE 83; O2SAT 92; BMI 41.8
--- NOTE | 2023-05-15 09:45 | A.OFFPC_ITS ---
Vital Signs 05/15/23 09:45 Height 5 ft 4.5 in Weight 247 lb 8 oz BMI 41.8 BP 110/72 Blood Pressure Location Lt brachial Position Sitting Pulse 83 Pulse Source Pulse Oximeter Pulse Oximetry (%) 92 Oxygen Delivery Method Room Air Intake Visit Reasons: f/u HTN Allergies latex [LATEX] Allergy (Intermediate, Verified 05/15/23 10:02) RASH GUILLERMO Inhibitors Allergy (Mild, Verified 05/15/23 10:02) cough varenicline [From Chantix] Allergy (Mild, Verified 05/15/23 10:02) hives rosuvastatin Adverse Reaction (Intermediate, Verified 05/15/23 10:02) Muscle Pain barium sulfate Adverse Reaction (Mild, Verified 05/15/23 10:02) burn on face nicotine Adverse Reaction (Mild, Verified 05/15/23 10:02) rash lisinopril Adverse Reaction (Verified 05/15/23 10:02) cough statins Allergy (Severe, Uncoded 05/15/23 09:46) edema seasonal Allergy (Mild, Uncoded 05/15/23 09:46) seasonal allergies watermelon rind Adverse Reaction (Intermediate, Uncoded 05/15/23 09:46) Cough Medication List - Last Reconciled 05/15/23 by Josue Lewis PA-C albuterol sulfate 2.5 mg inhalation Q4H PRN albuterol sulfate 90 mcg/actuation 2 inhalations inhalation Q6H PRN 30 days amiodarone 100 mg PO DAILY baclofen 10 mg PO BID budesonide 0.5 mg (2 mL) inhalation BID [CANNIBIS TAKE 1 GUMMY PO Q AM AND Q PM ] cetirizine (Allergy Relief (cetirizine)) 10 mg PO DAILY denosumab (Prolia) 60 mg subcut [id number] diltiazem HCl 360 mg PO DAILY evolocumab (Repatha SureClick) 140 mg subcut Q2W furosemide 40 mg PO BID gabapentin 800 mg PO TID losartan 25 mg PO DAILY 30 days methylcellulose (laxative) (Citrucel) 1,000 mg (2 x 500 mg) PO DAILY miscellaneous medical supply (Blood Pressure Cuff) As directed mupirocin 2% 1 appl topical TID nystatin 1 appl topical DAILY 10 days omeprazole 20 mg PO DAILY Oxygen Home Use As directed potassium chloride ER 20 mEq PO DAILY roflumilast (Daliresp) 500 mcg PO DAILY 90 days warfarin See Protocol 5 mg orally 5mg x 5 days/ 2.5mg x 2 days; Tobacco use date assessed: 01/14/23 HPI f/u HTN HPI Details Patient is a 72-year-old female here today for follow-up visit..?? Patient has a past medical history significant for advanced COPD, nonischemic cardiomyopathy, paroxysmal AFib, p.m. or, morbid obesity, hyperlipidemia, CHRISTIANO. .. Concern---> continues to have right knee pain that stops her from being more physically active. She is interested in a cortisone injection. She reports she is not a candidate knee replacement due to not being able to go under general anesthesia. Elevated enzymes--> has resolved since stopping statin Hyperlipidemia: Is followed by Cardiology, LDL and total cholesterol quite high for her cardiovascular risk. Patient is started on Repatha by her hide splitter. CHRONIC MEDICAL CONDITIONS-----> .. Paroxysmal AFib:? Patient is followed by Cardiology ( Dr. Mcintosh) continues on warfarin without any overt signs of bleeding. . // COPD:? Patient is followed by groundwater programs director Dr. Corona and continues on budesonide updrafts? BID and low-dose prednisone. Former smoker 1 1/2 years ago. She also reports she uses a CPAP at night for obstructive sleep apnea.? .. PMR: Is followed by Rheumatology , and now off prednisone.? Unfortunately inflammatory markers still elevated..? She is discouraged that she has not lost any weight since being off prednisone. .?? [facility] Medical History Abdominal pain Acute and chronic respiratory failure Aortic aneurysm Arthralgia Arthropathy of cervical spine Atelectasis Cardiomyopathy Chronic respiratory failure COPD (chronic obstructive pulmonary disease) COPD (chronic obstructive pulmonary disease) COPD (chronic obstructive pulmonary disease) Hyperlipidemia NICM (nonischemic cardiomyopathy) CHRISTIANO on CPAP Paroxysmal A-fib Surgical History History of bilateral cataract extraction History of esophagogastroduodenoscopy (EGD) Hx of cholecystectomy Hx of dilation and curettage Hx of hysterectomy Trigger finger of thumb Family History Father CHF (congestive heart failure) PNA (pneumonia) Dementia Diabetes HTN (hypertension) Family history of diabetes mellitus Mother CHF (congestive heart failure) MRSA (methicillin resistant Staphylococcus aureus) Son Afib Son Psoriasis Arthritis Daughter Hypothyroid Fibromyalgia Brother No problems noted. Brother No problems noted. Sister No problems noted. Social History Household Members: Spouse and Children Household Members Other:: Daughter Amy, and Remy Housing: House Do you presently have visiting nurse or other home services: No Alcohol intake: current Alcohol intake frequency: a few times a week Alcohol type: beer and hard liquor Patient Tobacco Use Status: Former Tobacco user Quit Date: 09/20/2019 Years Smoked: 50yrs +/- e-Cigarette/Vaping Use: Never Used Second Hand Smoke Exposure: No Substance Use Type: Marijuana Advance Directives Date on File: 10/27/16 service: No Current occupational status: retired Cognitive needs: Yes Hearing needs: No Vision needs: Yes Questionnaire PHQ-9 Over the last 2 weeks, how often have you been bothered by any of the following problems? 1. Little interest or pleasure in doing things: not at all 2. Feeling down, depressed, or hopeless: not at all 3. Trouble falling or staying asleep, or sleeping too much: not at all 4. Feeling tired or having little energy: not at all 5. Poor appetite or overeating: not at all 6. Feeling bad about yourself - or that you are a failure or have let yourself or your family down: not at all 7. Trouble concentrating on things, such as reading the newspaper or watching television: not at all 8. Moving or speaking so slowly that other people could have noticed. Or the opposite - being so fidgety or restless that you have been moving around a lot more than usual: not at all 9. Thoughts that you would be better off or of hurting yourself in some way: not at all Total score: 0 Depression Screening Interpretation: Negative 14196 - PHQ-9 Billing: Yes Source: Developed by Drs. David Sky, Alanna Wolf, Jarrett Hess and colleagues, with an educational juliocesar from [employer] Thrive Questionnaire Date Thrive assessed: 01/14/23 I am a: Patient What is your living situation today?: I have a steady place to live Within the past 12 months, did the food you bought not last and you didn't have the money to get more?: Never true Within the past 12 months, did you worry whether your food would run out before you got money to buy more?: Never true Currently or been in a relationship where the following occur: no concerns reported AUDIT C Alcohol Use Questionnaire (AUDIT-C) 1. How often do you have a drink containing alcohol?: Never 3. How often do you have six or more drinks on one occasion?: Never Total Score: 0 JOSE-7 AMB Questionnaire JOSE-7 Date JOSE - 7 assessed: 01/14/23 Feeling nervous, anxious, or on edge: 0 = Not at all Not being able to stop or control worryin = Not at all Worrying too much about different things: 0 = Not at all Trouble relaxin = Not at all Being so restless that it is hard to sit still: 0 = Not at all Becoming easily annoyed or irritable: 0 = Not at all Feeling afraid as if something awful might happen: 0 = Not at all Total JOSE-7 score (0-4 normal; 5-9 mild; 10-14 moderate; 15-21 severe): 0 Source: Developed by Drs. David Sky, Alanna Wolf, Jarrett Hess and colleagues, with an educational juliocesar from [employer] JOSE-7 Assessment Billing JOSE-7 Assessment Tool: JOSE-7 Assessment 72453 Review of Systems Const Denies headache(s) Eyes Denies loss of vision ENT Denies vertigo, Denies dizziness, Denies headache(s) and Denies sore throat Card Denies chest pain, Denies leg edema and Denies lightheadedness Resp Denies cough, Denies hemoptysis and Denies wheezing GI Denies abdominal pain, Denies melena, Denies constipation, Denies diarrhea and Denies vomiting Denies urinary frequency, Denies dysuria and Denies urinary urgency Musc Denies arthralgias, Denies joint swelling, Denies numbness and Denies tingling Neuro Denies Abnormal speech present, Denies behavioral changes, Denies vertigo, Denies dizziness, Denies headache(s), Denies loss of vision, Denies memory loss, Denies numbness and Denies tingling Psych Denies anxiety, Denies behavioral changes, Denies depression, Denies memory loss and Denies panic attacks Domingo/Lymph Denies easy bleeding and Denies easy bruising Aller/Immun Denies wheezing Physical exam (Primary Care) Vital Signs: Last Vital Signs Pulse 83 05/15/23 09:45 BP 110/72 05/15/23 09:45 Pulse Ox 92 05/15/23 09:45 Oxygen Delivery Method Room Air 05/15/23 09:45 BMI result Body Mass Index 41.8 BMI Assessment/Plan discussion: High Tobacco/Smoking Status: Tobacco use Status Tobacco use date assessed 01/14/23 05/15/23 09:52 Patient Tobacco Use Status Former Tobacco user 05/15/23 09:52 e-Cigarette/Vaping Use Never Used 05/15/23 09:52 PHQ-9: PHQ-9 Score PHQ-9: Total score 0 05/15/23 09:59 Depression Screening Interpretation: Negative Thrive Assessment: Date of Thrive Assessment Date Thrive assessed 01/14/23 05/15/23 09:52 Currently or been in a relationship where the following occur: no concerns reported Const Other: OBESE General: healthy appearing, no acute distress, alert and awake Nutritional Appearance: well nourished Orientation/consciousness: oriented to person, oriented to place and oriented to time HENMT Ears: TM's normal bilaterally General nose exam: Normal nasal mucous membranes and turbinates present Eyes Conjunctivae: conjunctivae normal Sclerae: sclerae normal Pupils: Equal, round and reactive pupils present Neck Neck: Yes no lymphadenopathy and Yes no JVD Thyroid: Thyroid normal Carotids: no bruits Resp Effort & Inspection: normal respiratory effort and not tachypneic Auscultation: no crackles, no rales, no rhonchi and no wheezes Cardio Rate: regular rate Rhythm: regular rhythm Heart sounds: no murmurs and normal S1 and S2 GI Palpation (GI): Soft to palpation, nontender, no hepatomegaly and no splenomegaly Auscultation: normal bowel sounds Skin General skin exam: no rashes or lesions noted and dry skin Neuro General: oriented to person, oriented to place and oriented to time Cranial nerves: Yes Equal, round and reactive pupils present Speech: No Abnormal speech present Gait exam (Neuro): Normal gait present Motor exam (neuro): no tremor noted Extrem Right upper extremity: full ROM Left upper extremity: full ROM Right lower extremity: full ROM; no edema Left lower extremity: full ROM; no edema Psych Mental Status: mental status grossly normal Speech and movement: Normal speech and movement present Affect: normal affect Attitude: cooperative Thought process: Normal thought process present Assessment and Plan Assessment & Plan (1) HTN (hypertension): Code(s): I10 - Essential (primary) hypertension Qualifiers: Hypertension type: primary hypertension Qualified Code(s): I10 - Essential (primary) hypertension Plan: Patient's blood pressure acceptable today in office, will continue current dose of antihypertensive medication with goal blood pressure to be below 140/90. (2) COPD (chronic obstructive pulmonary disease): Code(s): J44.9 - Chronic obstructive pulmonary disease, unspecified Qualifiers: COPD type: chronic bronchitis Chronic bronchitis type: simple Qualified Code(s): J41.0 - Simple chronic bronchitis Plan: Patient's COPD has been fairly stable with the use albuterol inhaler in new disease modifying drug. Continues to follow pulmonology. (3) Paroxysmal A-fib: Code(s): I48.0 - Paroxysmal atrial fibrillation Plan: Patient continues to follow cardiology. Continues to be anticoagulated with 5 mg warfarin daily and INRs have been stable. Denies any overt signs of bleeding. No recent episodes of palpitations, dizziness or chest discomforts. (4) Morbid obesity: Code(s): E66.01 - Morbid (severe) obesity due to excess calories Plan: Patient has been able to lose weight since stopping statin. Unfortunately BMI remains above 40 and does understand she needs to work on being more physically active and adapt to better eating habits to reduce her weight (5) Osteoarthritis of right knee: Code(s): M17.11 - Unilateral primary osteoarthritis, right knee Qualifiers: Osteoarthritis type: primary Qualified Code(s): M17.11 - Unilateral primary osteoarthritis, right knee Plan: She continues to on fortunately be injury by bilateral knee osteoarthritis worse on the right side. 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 Not candidate for total knee replacement due to not being able to be put under anesthesia. Advised on nonweightbearing exercises and topical treatments. (6) Hyperlipidemia: Code(s): E78.5 - Hyperlipidemia, unspecified Qualifiers: Hyperlipidemia type: mixed hyperlipidemia Qualified Code(s): E78.2 - Mixed hyperlipidemia Plan: Patient's most recent lipid panel very elevated for her cardiovascular risk. Unable to tolerate any statins due to elevations in liver enzymes and myalgias. Has been started on Repatha by her hide splitter and will recheck her lipid panel at next office visit. Orders: Orders Comprehensive [place]. Panel Fast 4 Months I10 - Essential (primary) hypertension Lipid Panel 4 Months E78.2 - Mixed hyperlipidemia Complete Blood Count no Diff 4 Months I10 - Essential (primary) hypertension Medications: New potassium chloride ER (Klor-Con M) 10 mEq PO DAILY 90 days 90 tabs 2RF I42.8 - Other cardiomyopathies Changed From baclofen 10 mg PO BID 60 tabs 6RF M54.50 - Low back pain, unspecified To baclofen 10 mg PO BID 90 days 180 tabs 2RF M54.50 - Low back pain, unspecified From warfarin See Protocol 5 mg orally 5mg x 5 days/ 2.5mg x 2 days; I48.0 - Paroxysmal atrial fibrillation To warfarin 5 mg See Protocol PO DAILY 90 days 90 tabs 2RF I48.0 - Paroxysmal atrial fibrillation Discontinued potassium chloride ER Discontinued Reason: Doctor's Order 20 mEq PO DAILY 90 tabs 2RF I42.8 - Other cardiomyopathies Coding Level of Care Code Est Pt Level 4 (52562) Diagnoses HTN (hypertension) I10 Hypertension type: primary hypertension COPD (chronic obstructive pulmonary disease) J41.0 COPD type: chronic bronchitis Chronic bronchitis type: simple Paroxysmal A-fib I48.0 Morbid obesity E66.01 Osteoarthritis of right knee M17.11 Osteoarthritis type: primary Hyperlipidemia E78.2 Hyperlipidemia type: mixed hyperlipidemia Additional Codes JOSE-7 Assessment Billing - JOSE-7 Assessment Tool: JOSE-7 Assessment [id number] ([id number])
== END 2023-05-15 10:33 | disposition home or self-care (01) ==
PROVIDERS: PCP Physician Assistant; Visit Provider Physician Assistant
DX: I10 Essential (primary) hypertension (principal); E66.01 Morbid (severe) obesity due to excess calories; Z68.41 Body mass index [BMI] 40.0-44.9, adult; J41.0 Simple chronic bronchitis; I48.0 Paroxysmal atrial fibrillation; M17.11 Unilateral primary osteoarthritis, right knee; E78.2 Mixed hyperlipidemia
CPT/HCPCS: 99214

== ENCOUNTER 2023-05-23 09:49 | Outpatient (AMB) | payer MEDICARE, SELFPAY ==
[2023-05-23 10:06] LABS: Prothrombin Time Whole Bld POC 47.1 sec (11.1-13.5); ~PT, ~INR - Anti Coag Clinic 3.9 (0.9-1.1)
--- NOTE | 2023-05-23 10:16 | MHC.OFFVISCO ---
Intake Intake Visit Reasons: Anticoagulation Allergies latex [LATEX] Allergy (Intermediate, Verified 05/23/23 09:58) RASH GUILLERMO Inhibitors Allergy (Mild, Verified 05/23/23 09:58) cough varenicline [From Chantix] Allergy (Mild, Verified 05/23/23 09:58) hives rosuvastatin Adverse Reaction (Intermediate, Verified 05/23/23 09:58) Muscle Pain barium sulfate Adverse Reaction (Mild, Verified 05/23/23 09:58) burn on face nicotine Adverse Reaction (Mild, Verified 05/23/23 09:58) rash lisinopril Adverse Reaction (Verified 05/23/23 09:58) cough statins Allergy (Severe, Uncoded 05/23/23 09:58) edema seasonal Allergy (Mild, Uncoded 05/23/23 09:58) seasonal allergies watermelon rind Adverse Reaction (Intermediate, Uncoded 05/23/23 09:58) Cough Medication List - Last Reconciled 05/23/23 by Lucia Barney RN albuterol sulfate 2.5 mg inhalation Q4H PRN albuterol sulfate 90 mcg/actuation 2 inhalations inhalation Q6H PRN 30 days amiodarone 100 mg PO DAILY baclofen 10 mg PO BID 90 days budesonide 0.5 mg (2 mL) inhalation BID [CANNIBIS TAKE 1 GUMMY PO Q AM AND Q PM ] cetirizine (Allergy Relief (cetirizine)) 10 mg PO DAILY denosumab (Prolia) 60 mg subcut [id number] diltiazem HCl 360 mg PO DAILY evolocumab (Repatha SureClick) 140 mg subcut Q2W furosemide 40 mg PO BID gabapentin 800 mg PO TID losartan 25 mg PO DAILY 30 days methylcellulose (laxative) (Citrucel) 1,000 mg (2 x 500 mg) PO DAILY miscellaneous medical supply (Blood Pressure Cuff) As directed mupirocin 2% 1 appl topical TID nystatin 1 appl topical DAILY 10 days omeprazole 20 mg PO DAILY Oxygen Home Use As directed potassium chloride ER (Klor-Con M) 10 mEq PO DAILY 90 days roflumilast (Daliresp) 500 mcg PO DAILY 90 days warfarin 5 mg See Protocol PO DAILY 90 days Nursing Note Amb to [facility] accomp by spouse, no O2 used today sts using less O2 now, feeling better less nausea, sts taking her omeprazole at night and having less nausea in am Medications and supplements reviewed, encouraged to take omeprazole in evenings but not with her warfarin No other changes in health, diet, medications, or supplements Denies any unusual signs and symptoms of bruising, bleeding Denies any new Chest pain, SOB, or clotting INR: 3.9 above therapeutic range Nutritional guidance given:thinks she has not been having usual greens and has started with more [place] tomatoes, balance greens and reds in diet, have a green today then be consistent Dose: hold warfarin today then resume usual dosing; 5mg daily F/U INR: 1 week Patient verbalizes understanding of instructions given with accurate read back/ teach back of dosing Anti-Coag Initial Assessment Social Hx Patient Tobacco Use Status: Former Tobacco user Quit Date: 09/20/2019 alcohol intake: current Alcohol intake frequency: a few times a week Coding Level of Care Code Est Patient Level 1 Diagnoses Current use of anticoagulant therapy Z79.01 Time Spent (min) 15 Assessment & Plan Assessment & Plan (1) Current use of anticoagulant therapy: Code(s): Z79.01 - [facility] (current) use of anticoagulants Category: Medical
== END 2023-05-23 10:25 | disposition home or self-care (01) ==
LOC: HO.ACS 09:49
PROVIDERS: PCP Physician Assistant; Visit Provider Internal Medicine
DX: Z79.01 Long term (current) use of anticoagulants (principal)

== ENCOUNTER → 2023-05-23 09:49 | Outpatient (BNVA) | payer MEDICARE, SELFPAY | PROVIDERS: PCP Physician Assistant; Visit Provider Internal Medicine | DX: I48.0 Paroxysmal atrial fibrillation (principal); Z79.01 Long term (current) use of anticoagulants; Z51.81 Encounter for therapeutic drug level monitoring | CPT/HCPCS: 85610; 99211 ==

== ENCOUNTER 2023-05-30 11:06 | Outpatient (AMB) | payer MEDICARE, SELFPAY ==
[2023-05-30 11:23] LABS: Prothrombin Time Whole Bld POC 48.1 sec (11.1-13.5)
--- NOTE | 2023-05-30 11:40 | MHC.OFFVISCO ---
Intake Intake Visit Reasons: Anticoagulation Allergies latex [LATEX] Allergy (Intermediate, Verified 05/30/23 12:16) RASH GUILLERMO Inhibitors Allergy (Mild, Verified 05/30/23 12:16) cough varenicline [From Chantix] Allergy (Mild, Verified 05/30/23 12:16) hives rosuvastatin Adverse Reaction (Intermediate, Verified 05/30/23 12:16) Muscle Pain barium sulfate Adverse Reaction (Mild, Verified 05/30/23 12:16) burn on face nicotine Adverse Reaction (Mild, Verified 05/30/23 12:16) rash lisinopril Adverse Reaction (Verified 05/30/23 12:16) cough statins Allergy (Severe, Uncoded 05/30/23 12:16) edema seasonal Allergy (Mild, Uncoded 05/30/23 12:16) seasonal allergies watermelon rind Adverse Reaction (Intermediate, Uncoded 05/30/23 12:16) Cough Medication List - Last Reconciled 05/30/23 by Lucia Barney RN albuterol sulfate 2.5 mg inhalation Q4H PRN albuterol sulfate 90 mcg/actuation 2 inhalations inhalation Q6H PRN 30 days amiodarone 100 mg PO DAILY baclofen 10 mg PO BID 90 days budesonide 0.5 mg (2 mL) inhalation BID [CANNIBIS TAKE 1 GUMMY PO Q AM AND Q PM ] cetirizine (Allergy Relief (cetirizine)) 10 mg PO DAILY denosumab (Prolia) 60 mg subcut [id number] diclofenac sodium 1% (Voltaren Arthritis Pain) 2 grams topical QID diltiazem HCl 360 mg PO DAILY evolocumab (Repatha SureClick) 140 mg subcut Q2W furosemide 40 mg PO BID gabapentin 800 mg PO TID losartan 25 mg PO DAILY 30 days methylcellulose (laxative) (Citrucel) 1,000 mg (2 x 500 mg) PO DAILY miscellaneous medical supply (Blood Pressure Cuff) As directed mupirocin 2% 1 appl topical TID nystatin 1 appl topical DAILY 10 days omeprazole 20 mg PO DAILY Oxygen Home Use As directed potassium chloride ER (Klor-Con M) 10 mEq PO DAILY 90 days roflumilast (Daliresp) 500 mcg PO DAILY 90 days warfarin 5 mg See Protocol PO DAILY 90 days Nursing Note Amb to [facility] using walker, wearing cont O2, accomp by spouse feeling ok, no nausea Medications and supplements reviewed, later in visit sts she has been using Voltaren on knees just at night as it is an NSAID discussed with pt that it can raise INR No other changes in health, diet, medications, or supplements Denies any unusual signs and symptoms of bruising, bleeding Denies any new Chest pain, SOB, or clotting INR: 4.0 higher than last week INR Nutritional guidance given: reviewed power of greens as has been having iceberg lettuce salads vs [place], has started with [place] tomatoes (raise INR), food list reviewed sts we were having asparagus 3x a week when it was in season, free from the garden reviewed need to be consistent with same greens intake Dose: hold warfarin today resume usal 5mg on Friday but decrease Friday dose to 2.5mg; F/U INR: 1 week Patient and verbalizes understanding of instructions given with accurate read back/ teach back of dosing Anti-Coag Initial Assessment Social Hx Patient Tobacco Use Status: Former Tobacco user Quit Date: 09/20/2019 alcohol intake: current Alcohol intake frequency: a few times a week Coding Level of Care Code Est Patient Level 2 Diagnoses Current use of anticoagulant therapy Z79.01 Time Spent (min) 30 Assessment & Plan Assessment & Plan (1) Current use of anticoagulant therapy: Code(s): Z79.01 - [employer] for [employer] (current) use of anticoagulants Category: Medical
== END 2023-05-30 12:19 | disposition home or self-care (01) ==
LOC: HO.ACS 11:06
PROVIDERS: PCP Physician Assistant; Visit Provider Internal Medicine
DX: Z79.01 Long term (current) use of anticoagulants (principal)

== ENCOUNTER → 2023-05-30 11:06 | Outpatient (BNVA) | payer MEDICARE, SELFPAY | PROVIDERS: PCP Physician Assistant; Visit Provider Internal Medicine | DX: I48.0 Paroxysmal atrial fibrillation (principal); Z79.01 Long term (current) use of anticoagulants; Z51.81 Encounter for therapeutic drug level monitoring | CPT/HCPCS: 85610; 99212 ==

== ENCOUNTER 2023-06-06 10:07 | Outpatient (AMB) | payer MEDICARE, SELFPAY ==
[2023-06-06 10:27] LABS: Prothrombin Time Whole Bld POC 26.7 sec (11.1-13.5); ~PT, ~INR - Anti Coag Clinic 2.2 (0.9-1.1)
--- NOTE | 2023-06-06 10:36 | MHC.OFFVISCO ---
Intake Intake Visit Reasons: Anticoagulation Allergies latex [LATEX] Allergy (Intermediate, Verified 06/06/23 10:21) RASH GUILLERMO Inhibitors Allergy (Mild, Verified 06/06/23 10:21) cough varenicline [From Chantix] Allergy (Mild, Verified 06/06/23 10:21) hives rosuvastatin Adverse Reaction (Intermediate, Verified 06/06/23 10:21) Muscle Pain barium sulfate Adverse Reaction (Mild, Verified 06/06/23 10:21) burn on face nicotine Adverse Reaction (Mild, Verified 06/06/23 10:21) rash lisinopril Adverse Reaction (Verified 06/06/23 10:21) cough statins Allergy (Severe, Uncoded 06/06/23 10:21) edema seasonal Allergy (Mild, Uncoded 06/06/23 10:21) seasonal allergies watermelon rind Adverse Reaction (Intermediate, Uncoded 06/06/23 10:21) Cough Medication List - Last Reconciled 06/06/23 by Lucia Barney RN albuterol sulfate 2.5 mg inhalation Q4H PRN albuterol sulfate 90 mcg/actuation 2 inhalations inhalation Q6H PRN 30 days amiodarone 100 mg PO DAILY baclofen 10 mg PO BID 90 days budesonide 0.5 mg (2 mL) inhalation BID [CANNIBIS TAKE 1 GUMMY PO Q AM AND Q PM ] cetirizine (Allergy Relief (cetirizine)) 10 mg PO DAILY denosumab (Prolia) 60 mg subcut [id number] diclofenac sodium 1% (Voltaren Arthritis Pain) 2 grams topical QID diltiazem HCl 360 mg PO DAILY evolocumab (Repatha SureClick) 140 mg subcut Q2W furosemide 40 mg PO BID gabapentin 800 mg PO TID losartan 25 mg PO DAILY 30 days methylcellulose (laxative) (Citrucel) 1,000 mg (2 x 500 mg) PO DAILY miscellaneous medical supply (Blood Pressure Cuff) As directed mupirocin 2% 1 appl topical TID nystatin 1 appl topical DAILY 10 days omeprazole 20 mg PO DAILY Oxygen Home Use As directed potassium chloride ER (Klor-Con M) 10 mEq PO DAILY 90 days roflumilast (Daliresp) 500 mcg PO DAILY 90 days warfarin 5 mg See Protocol PO DAILY 90 days Nursing Note Amb to [facility] using walker, no O2 and feeling well, accomp by Medications and supplements reviewed No changes in health, diet, medications, or supplements Denies any unusual signs and symptoms of bruising, bleeding Denies any new Chest pain, SOB, or clotting INR: 2.2 now in therapeutic range Nutritional guidance given: balance greens and reds in diet, be consistent and have an extra green if using voltaran Dose: continue new dosing;2.5mg on Friday and 5mg all other days F/U INR: 2 weeks Patient verbalizes understanding of instructions given with accurate read back/ teach back of dosing Anti-Coag Initial Assessment Social Hx Patient Tobacco Use Status: Former Tobacco user Quit Date: 09/20/2019 alcohol intake: current Alcohol intake frequency: a few times a week Coding Level of Care Code Est Patient Level 1 Diagnoses Current use of anticoagulant therapy Z79.01 Time Spent (min) 15 Assessment & Plan Assessment & Plan (1) Current use of anticoagulant therapy: Code(s): Z79.01 - [facility] (current) use of anticoagulants Category: Medical
== END 2023-06-06 10:51 | disposition home or self-care (01) ==
LOC: HO.ACS 10:07
PROVIDERS: PCP Physician Assistant; Visit Provider Internal Medicine
DX: Z79.01 Long term (current) use of anticoagulants (principal)

== ENCOUNTER → 2023-06-06 10:07 | Outpatient (BNVA) | payer MEDICARE, SELFPAY | PROVIDERS: PCP Physician Assistant; Visit Provider Internal Medicine | DX: I48.0 Paroxysmal atrial fibrillation (principal); Z79.01 Long term (current) use of anticoagulants; Z51.81 Encounter for therapeutic drug level monitoring | CPT/HCPCS: 85610; 99211 ==

== ENCOUNTER 2023-06-27 09:48 | Outpatient (AMB) | payer MEDICARE, SELFPAY ==
[2023-06-27 10:01] LABS: Prothrombin Time Whole Bld POC 26.1 sec (11.1-13.5); ~PT, ~INR - Anti Coag Clinic 2.2 (0.9-1.1)
--- NOTE | 2023-06-27 10:10 | MHC.OFFVISCO ---
Intake Intake Visit Reasons: Anticoagulation Allergies latex [LATEX] Allergy (Intermediate, Verified 06/27/23 09:53) RASH GUILLERMO Inhibitors Allergy (Mild, Verified 06/27/23 09:53) cough varenicline [From Chantix] Allergy (Mild, Verified 06/27/23 09:53) hives rosuvastatin Adverse Reaction (Intermediate, Verified 06/27/23 09:53) Muscle Pain barium sulfate Adverse Reaction (Mild, Verified 06/27/23 09:53) burn on face nicotine Adverse Reaction (Mild, Verified 06/27/23 09:53) rash lisinopril Adverse Reaction (Verified 06/27/23 09:53) cough statins Allergy (Severe, Uncoded 06/06/23 10:21) edema seasonal Allergy (Mild, Uncoded 06/06/23 10:21) seasonal allergies watermelon rind Adverse Reaction (Intermediate, Uncoded 06/06/23 10:21) Cough Nursing Note NO CP,SOB,DIET/MED CHANGES,FALLS OR SX OF BLEEDING. CONTINUE PRESENT DOSE AND FOLLOW-UP IN 4 WEEKS. GOOD UNDERSTANDING OF DOSING INSTR. Anti-Coag Initial Assessment Social Hx Patient Tobacco Use Status: Former Tobacco user Quit Date: 09/20/2019 alcohol intake: current Alcohol intake frequency: a few times a week Coding Level of Care Code Est Patient Level 1 Diagnoses Current use of anticoagulant therapy Z79.01 Assessment & Plan Assessment & Plan (1) Current use of anticoagulant therapy: Code(s): Z79.01 - [facility] (current) use of anticoagulants Category: Medical
== END 2023-06-27 10:11 | disposition home or self-care (01) ==
LOC: HO.ACS 09:48
PROVIDERS: PCP Physician Assistant; Visit Provider Internal Medicine
DX: Z79.01 Long term (current) use of anticoagulants (principal)

== ENCOUNTER → 2023-06-27 09:48 | Outpatient (BNVA) | payer MEDICARE, SELFPAY | PROVIDERS: PCP Physician Assistant; Visit Provider Internal Medicine | DX: I48.0 Paroxysmal atrial fibrillation (principal); Z79.01 Long term (current) use of anticoagulants; Z51.81 Encounter for therapeutic drug level monitoring | CPT/HCPCS: 85610; 99211 ==

== ENCOUNTER 2023-07-22 12:03 | Emergency (ER) | payer MEDICARE, SELFPAY ==
--- NOTE | ~2023-07-22 | CT_ITS ---
EXAMINATION: CT ABDOMEN AND PELVIS WITH CONTRAST CLINICAL INFORMATION: Right lower quadrant pain COMPARISON: Previous abdominal ultrasound March [address] of the abdomen and pelvis August 2020 TECHNIQUE: Multidetector volumetric images were obtained from the superior aspect of the liver through the pubic symphysis following administration 85 mL of Omnipaque 350 intravenous contrast. Sagittal and coronal reformatted images were obtained on the technologist's workstation. Oral contrast: Yes This CT examination was performed using dose optimization techniques as appropriate, variously including the following: *Automated exposure control *Adjustment of mA and/or kV according to patient size (this includes techniques or standardized protocols for targeted exams where dose is matched to indication/reason for exam; i.e. extremities or head) *Use of iterative reconstruction technique DLP: 1028 mGy-cm FINDINGS: LUNG BASES: The visualized lung bases are unremarkable. LIVER, GALLBLADDER, AND BILIARY TREE: The liver is normal in size, shape, and attenuation. No focal hepatic lesion or biliary ductal dilatation is present. The gallbladder has been removed. PANCREAS: Unremarkable. SPLEEN: Unremarkable. ADRENAL GLANDS: Fullness of the left adrenal gland similar to previous. The right adrenal gland is normal. KIDNEYS AND URETERS: Atrophic-appearing left kidney. Small left renal cyst. No imaging follow-up recommended. 1 cm low-attenuation lesion in the lower pole right kidney. Hounsfield units following IV contrast or not compatible with a simple cyst. Further imaging recommended. BLADDER: Unremarkable. GASTROINTESTINAL TRACT: Diverticulosis of the colon. No evidence of diverticulitis. Small duodenal diverticulum adjacent to the head of the pancreas. The small and large bowel are otherwise unremarkable. The appendix is unremarkable. ABDOMINAL WALL: periumbilical hernias containing fat. LYMPH NODES: Normal. VASCULAR: Small aneurysm of the abdominal aorta measuring 3.3 x 3.9 cm in transverse and AP dimension. This is minimally increased from 3 x 3.7 cm August 2020 exam. PELVIC VISCERA: Unremarkable. OSSEOUS STRUCTURES: Degenerative changes of the spine. CT/CT abdomen pelvis w IV con IMPRESSION: Normal appendix. Diverticulosis. No evidence of diverticulitis. Atrophic left kidney. 1 cm low-attenuation lesion in the lower pole of the right kidney not compatible with a simple cyst. Dedicated renal imaging with CT or MR with and without IV contrast recommended. This was not seen on recent abdominal ultrasound March 2022. 3.3 x 3.9 cm abdominal aortic aneurysm. Abdominal aortic aneurysm follow up recommendations Follow-up intervals for imaging an enlarged infrarenal abdominal aorta from initial detection: * <2.5 cm: follow up not needed * 2.5-2.9 cm: 5 year interval * 3.0-3.4 cm: 3 year interval * 3.5-3.9 cm: 2 year interval * 4.0-4.4 cm: 1-year interval * 4.5-4.9 cm: 6-month interval * 5.0-5.5 cm: 3-6 month interval * >5.5 cm: treatment Notes: Aneurysms greater than 5.0 cm in diameter in women and 5.5 cm in men carry a significantly increased risk of rupture and should be treated. Additional indications for repair: * an increase in diameter of 5 mm in 6 months * a symptomatic aneurysm In patients with a connective tissue disorder (e.g. Marfan syndrome), especially those with a bicuspid aortic valve, surgical treatment may be considered even with a diameter smaller than 5.0 cm. Reference: Nicolas F, Amrik G, Andrei Selby et-al. Managing incidental findings on abdominal and pelvic CT and MRI, Part 2: white paper of the ACR Incidental Findings Committee II on vascular findings. J Am Meredith Radiol. 2013;10 (10): 789-94. Fleischner guidelines were followed.
--- NOTE | ~2023-07-22 | XR_ITS ---
EXAMINATION: XR CHEST CLINICAL INFORMATION: Follow-up abnormal chest x-ray COMPARISON: Earlier on 07/22/2023 TECHNIQUE: 2 views of the chest were obtained. FINDINGS: Minimal linear atelectasis or scar is evident at the left lung base. Otherwise, the lungs are grossly clear. The cardiomediastinal silhouette is stable. XR/XR chest 2V IMPRESSION: Intimal linear atelectasis or scar at the left base.
--- NOTE | ~2023-07-22 | XR_ITS ---
EXAMINATION: XR CHEST CLINICAL INFORMATION: Chest pain and shortness of breath COMPARISON: chest radiograph. TECHNIQUE: Frontal view of the chest was obtained. FINDINGS: Heart and mediastinum within normal limits. No vascular congestion. Mild apical pleural thickening. Bibasilar atelectasis, right middle lobe pneumonia not excluded. No consolidation/air bronchograms or pleural effusions. XR/XR chest 1V IMPRESSION: Bibasilar atelectasis. Right middle lobe pneumonia not excluded. Consider PA and lateral feasible.
[2023-07-22 12:08] VITALS: BP 131/59; PULSE 96; RESP 18; TEMP 36.7; O2SAT 95; BMI 42.0
--- NOTE | 2023-07-22 12:09 | ECG_ITS ---
Test Reason : CHEST PAIN Blood Pressure : / mmHG Vent. Rate : 082 BPM Atrial Rate : 082 BPM P-R Int : 202 ms QRS Dur : 080 ms QT Int : 422 ms P-R-T Axes : 020 034 021 degrees QTc Int : 493 ms Normal sinus rhythm Low voltage QRS Prolonged QT Abnormal ECG When compared with ECG of 19-DEC-2021 13:18, No significant change was found Referred By: Geremias Loza Electronically Signed By:MATEHUS HARVEY
--- NOTE | 2023-07-22 12:09 | ED.GENADULT ---
HPI - General Adult General Chief complaint: General Medical Stated complaint: Burning sensation in lungs Time Seen by Provider: 07/22/23 15:22 Source: patient, RN notes reviewed and old records reviewed Mode of arrival: ambulatory History of Present Illness HPI narrative: 72-year-old female with a past medical history of COPD on 2-2.5L NC during the day, HLD, AFib on Coumadin, with an CPAP, cardiomyopathy, presenting to the ED complaining of substernal chest burning radiating to jaw, chronic SOB, exertional SOB x 1 week. Also reports intermittent abdominal pain and nausea with decreased p.o. intake. Denies fever/chills, new or worsening cough, vomiting/diarrhea, dysuria, pedal edema Related Data Home Medications Medication Instructions Recorded Confirmed cetirizine 10 mg tablet (Allergy 10 mg PO DAILY 11/15/20 06/06/23 Relief (cetirizine)) CANNIBIS PO 10/31/22 06/06/23 furosemide 40 mg tablet 40 mg PO BID 10/31/22 06/06/23 omeprazole 20 mg capsule,delayed 20 mg PO DAILY 10/31/22 06/06/23 release denosumab 60 mg/mL subcutaneous 60 mg subcut [id number] 02/05/23 06/06/23 syringe (Prolia) Oxygen Home Use 02/19/23 06/06/23 diclofenac sodium 1 % topical gel 2 g topical QID 05/30/23 06/06/23 (Voltaren Arthritis Pain) Previous Rx's Medication Instructions Recorded methylcellulose (laxative) 500 mg 1,000 mg (2 x 500 mg) PO DAILY #60 04/16/22 tablet (Citrucel) tabs nystatin 100,000 unit/gram topical 1 appl topical DAILY 10 days #30 07/22/22 cream grams mupirocin 2 % topical ointment 1 appl topical TID #22 grams 08/19/22 diltiazem HCl 360 mg 360 mg PO DAILY #90 caps 08/29/22 capsule,extended release 24 hr gabapentin 800 mg tablet 800 mg PO TID #270 tabs 09/24/22 amiodarone 100 mg tablet 100 mg PO DAILY #90 tabs 10/30/22 miscellaneous medical supply #1 ea 01/14/23 (Blood Pressure Cuff) albuterol sulfate 90 mcg/actuation 2 inh inhalation Q6H PRN shortness 02/19/23 aerosol inhaler of breath or wheezing 30 days #18 grams roflumilast 500 mcg tablet 500 mcg PO DAILY 90 days #90 tabs 02/19/23 (Daliresp) evolocumab 140 mg/mL subcutaneous 140 mg subcut Q2W #2 mL 02/20/23 pen injector (Radha Mortonick) baclofen 10 mg tablet 10 mg PO BID 90 days #180 tabs 05/15/23 potassium chloride 10 mEq 10 meq PO DAILY 90 days #90 tabs 05/15/23 tablet,extended release(part/cryst) (Klor-Con M) warfarin 5 mg tablet 5 mg PO DAILY 90 days #90 tabs 05/15/23 budesonide 0.5 mg/2 mL suspension 0.5 mg (2 mL) inhalation BID #360 07/04/23 for nebulization mL albuterol sulfate 2.5 mg/3 mL 2.5 mg (3 mL) inhalation Q4H 30 07/06/23 (0.083 %) solution for nebulization days #180 mL losartan 25 mg tablet 25 mg PO DAILY #90 tabs 07/20/23 Allergies Allergy/AdvReac Type Severity Reaction Status Date / Time latex [LATEX] Allergy Intermediate RASH Verified 06/27/23 09:53 GUILLERMO Inhibitors Allergy Mild cough Verified 06/27/23 09:53 varenicline [From Chantix] Allergy Mild hives Verified 06/27/23 09:53 rosuvastatin AdvReac Intermediate Muscle Pain Verified 06/27/23 09:53 barium sulfate AdvReac Mild burn on Verified 06/27/23 09:53 face nicotine AdvReac Mild rash Verified 06/27/23 09:53 lisinopril AdvReac cough Verified 06/27/23 09:53 statins Allergy Severe edema Uncoded 06/06/23 10:21 seasonal Allergy Mild seasonal Uncoded 06/06/23 10:21 allergies watermelon rind AdvReac Intermediate Cough Uncoded 06/06/23 10:21 Review of Systems Review of Systems: Constitutional: No Fever, No Chills, No Fatigue, No Malaise ENT/Mouth: No Ear Pain, No sore throat, No Rhinorrhea, No Swallowing Difficulty Eyes: No Eye Pain, No Swelling, No Redness, No Vision Changes Cardiovascular: +Chest burning, + SOB, + Dyspnea on Exertion, No Orthopnea, +chronic Edema, No Palpitations Respiratory: No Cough, No Sputum, No Dyspnea Gastrointestinal: + Nausea, No Vomiting, No Diarrhea, No Constipation, No Abdominal pain Genitourinary: No irregular bleeding, No Dysuria, No Urinary Flow Changes, No Hesitancy Musculoskeletal: No joint pain, No Myalgias, No Joint Swelling Skin: No Skin Lesions, No rash Neuro: No Weakness, No Dizziness, No Headache Yes all other systems are reviewed and are negative Constitutional: Constitutional: Reports as per [facility] Past Medical History Attestation statement: The following information was validated with the patient. Source: old records reviewed Medical History COPD (chronic obstructive pulmonary disease) Atelectasis Acute and chronic respiratory failure Aortic aneurysm COPD (chronic obstructive pulmonary disease) Arthralgia NICM (nonischemic cardiomyopathy) Hyperlipidemia Arthropathy of cervical spine Cardiomyopathy Paroxysmal A-fib Abdominal pain Chronic respiratory failure CHRISTIANO on CPAP COPD (chronic obstructive pulmonary disease) Surgical History History of esophagogastroduodenoscopy (EGD) Hx of dilation and curettage Hx of cholecystectomy Hx of hysterectomy History of bilateral cataract extraction Trigger finger of thumb Family History Family History Father CHF (congestive heart failure) PNA (pneumonia) Dementia Diabetes HTN (hypertension) Family history of diabetes mellitus Mother CHF (congestive heart failure) MRSA (methicillin resistant Staphylococcus aureus) Son Afib Son Psoriasis Arthritis Daughter Hypothyroid Fibromyalgia Brother No problems noted. Brother No problems noted. Sister No problems noted. Social History Social History Household Members: Spouse and Children Household Members Other:: Daughter Amy, and Remy Housing: House Do you presently have visiting nurse or other home services: No Alcohol intake: current Alcohol intake frequency: holidays/special occasions only Alcohol type: beer and hard liquor Patient Tobacco Use Status: Former Tobacco user Quit Date: 09/20/2019 Years Smoked: 50yrs +/- Smoked in Last 30 Days: No e-Cigarette/Vaping Use: Never Used Second Hand Smoke Exposure: No Use of substances other than those prescribed or required for medical reasons: No Substance Use Type: Marijuana Advance Directives: Yes Advance Directives on File: Yes Advance Directives Date on File: 10/27/16 service: No Current occupational status: retired Cognitive needs: Yes Hearing needs: No Vision needs: Yes Physical Exam ED Vital Signs: Vital Signs - 24 hr 07/22/23 12:08 07/22/23 15:25 07/22/23 16:25 Temperature 98.1 F 98.0 F Pulse Rate 96 89 82 Respiratory Rate 18 18 19 Blood Pressure 131/59 L 97/71 Pulse Oximetry 95 96 Oxygen Delivery Method Nasal Cannula Nasal Cannula Oxygen Flow Rate 2 07/22/23 16:29 07/22/23 18:00 Temperature 98.4 F Pulse Rate 82 92 Respiratory Rate 18 18 Blood Pressure 118/47 L Pulse Oximetry 93 94 Oxygen Delivery Method Nasal Cannula Nasal Cannula Oxygen Flow Rate 2 2 BMI result Body Mass Index 42.0 Const General: cooperative, healthy appearing and no acute distress Orientation/consciousness: patient oriented x3 Limitations: no limitations HENMT Head: Yes normal to inspection and Yes atraumatic Ears: hearing grossly normal bilaterally General nose exam: Normal external nose present Face and sinus: Yes normal facial exam Eyes General: appearance normal, both eyes and all related structures EOM: EOMs intact bilaterally Neck Neck: Yes normal visual inspection and Yes no meningeal signs Resp Effort & Inspection: normal respiratory effort and no respiratory distress Auscultation: no wheezes and diminished lung sounds diffuse Cardio Rate: regular rate Heart sounds: S1 normal heart sound present and S2 normal heart sound present GI Inspection: Yes normal to inspection Palpation (GI): Soft to palpation, Tenderness to palpation present (GI) in the RLQ; with no rebound tenderness, no guarding and not rigid General: Yes no CVA tenderness Back/Spine/Pelvis Back: no CVA tenderness Skin Rashes: no rashes Wounds: no wounds Neuro General: patient oriented x3, tone normal and no meningeal signs Cranial nerves: Yes CN's II-XII intact bilaterally Extrem General: Yes normal to inspection and Yes edema (1+ bilaterally) Course Course Course Narrative: This is an RME: Additional HPI, ROS, PE not included below will be deferred to primary provider. 72 yo f hx obesity, chf, cad, hld, a fib presents w/ cp sob X1 week. On cumadin. On home o2 2. 5 L during the day 3 at night Plan- labs,imaging -1556--no leukocytosis. INR 1.8, mildly subtherapeutic. Hypokalemic to 3.2 > p.o. repletion ordered -initial troponin 17.3 > will obtain 3 hour repeat XR chest 1V IMPRESSION: Bibasilar atelectasis. Right middle lobe pneumonia not excluded. Consider PA and lateral feasible. >will obtain PA and lateral views for further eval XR chest 2V IMPRESSION: Intimal linear atelectasis or scar at the left base. -1630--ED care transferred to [facility] pending remaining repeat troponin, UA, and CT abdomen/pelvis. Dispo per results Reevaluation(s) Reevaluation #1: CT of the abdomen and pelvis is without evidence of diverticulitis, appendicitis, obstruction, colitis; there is a right renal lesion with does not appear consistent with a simple cyst which patient was made aware of in advised she will require outpatient follow-up with her primary care provider, there is also notation of abdominal aortic aneurysm 3.3 x 3.9 cm with recommendation for follow-up in 2 years she is already aware of the AAA. Urinalysis is without evidence of infection at this time. She is stable for discharge home and outpatient follow-up with her primary care provider. Discussed strict return precautions. Her questions were answered. Time: 18:30 Reevaluation #2: Medications Administered Discontinued Medications Generic Name Dose Route Start Last Admin Trade Name Freq PRN Reason Stop Dose Admin Iohexol 100 ml 07/22/23 17:01 07/22/23 17:01 Iohexol 350 Mg/Ml 100 Ml Infus..Btl IV 07/22/23 17:02 85 ml ONCE ONE Administration Levalbuterol HCl 1.25 mg 07/22/23 16:21 07/22/23 16:25 Levalbuterol Hcl 1.25 Mg/3 Ml Vial.Neb INHALE 07/22/23 16:22 1.25 mg ONCE ONE Administration Potassium Chloride 60 meq 07/22/23 15:27 07/22/23 16:28 Potassium Chloride Packet 20 Meq Packet PO 07/22/23 15:28 60 meq ONCE ONE Administration Medical Decision Making Medical Decision Making MDM Narrative: 72-year-old female with a past medical history of COPD on 2-2.5L NC during the day, HLD, AFib on Coumadin, with an CPAP, cardiomyopathy, presenting to the ED complaining of substernal chest burning radiating to jaw, chronic SOB, exertional SOB x 1 week. Also reports intermittent abdominal pain and nausea with decreased p.o. intake. On exam vital signs stable, NAD, nontoxic appearing, diminished lung sounds throughout, abdomen soft with RLQ tenderness, no rebound or guarding, 1+ bilateral LE pitting edema. Concern for ACS vs GERD/pancreatitis vs COPD exacerbation vs pneumonia/viral syndrome vs CHF. Low suspicion for DVT/PE. Concern for appendicitis vs colitis. Lower suspicion for cholecystitis/lithiasis, diverticulitis or renal stone Plan: EKG, labs, UA, CXR, CT AP, bronch protocol, re-evaluate Please refer to course for remaining clinical decision making, interpretation of labs/imaging results, and discussions with consultants and/or family members. Differential Diagnosis Differential Diagnoses: The differential diagnosis associated with the presentation includes As above Admission/Observation Consideration of admission/observation: Escalation of care including admission/observation considered Lab Data MDM Lab Attestation statement: I reviewed the patient's lab results. 07/22/23 14:08 07/22/23 14:08 Labs: Lab Results 07/22/23 07/22/23 07/22/23 Range/Units 14:08 17:11 19:44 WBC 8.5 (4.8-10.8) X10*3/uL RBC 4.28 (4.20-5.50) X10*6/uL Hgb 13.4 (12.0-16.0) g/dl Hct 39.5 (37.0-47.0) % MCV 92.3 (80.0-98.0) fL MCH 31.3 (27.0-33.0) pg MCHC 33.9 (31.0-35.0) g/dl RDW 13.7 (11.0-16.0) % Plt Count 242 D (160-400) X10*3/uL MPV 8.9 L (9.4-12.3) fL Immature Gran % (Auto) 0.9 H (0.0-0.4) % Neut % (Auto) 76.5 H (45-73) % Lymph % (Auto) 12.3 L (20-40) % [place] % (Auto) 9.4 (2-11) % Eos % (Auto) 0.5 (0-4) % Baso % (Auto) 0.4 (0-2) % Lymph # (Auto) 1.0 L (1.2-4.9) X10*3/uL [place] # (Auto) 0.8 (0.1-1.2) X10*3/uL Eos # (Auto) 0.0 (0.0-0.4) X10*3/uL Baso # (Auto) 0.0 (0.0-0.2) X10*3/uL Abs Immat Gran (auto) 0.08 H (0.00-0.03) X10*3/uL Absolute Neuts (auto) 6.5 (2.0-8.3) x10*3/uL Absolute Nucleated RBC 0.000 (0.0-0.012) X10*3/uL Nucleated RBC % (auto) 0.0 (0.0-0.2) /100WBC PT 21.4 H (11.1-13.3) SEC INR 1.8 H (0.9-1.1) Sodium 138 (135-145) mmol/L Potassium 3.2 L (3.3-5.1) mmol/L Chloride 98 (96-108) mmol/L Carbon Dioxide 29 (22-29) mmol/L Anion Gap 14 (12-20) BUN 15 (9-16) mg/dL Creatinine 1.20 (0.5-1.4) mg/dL Estim Creat Clear Calc 50.2 Estimated GFR 44 Random Glucose 103 (60-115) mg/dL Calcium 8.9 D (8.4-10.2) mg/dL Magnesium 2.1 (1.6-2.6) mg/dL Total Bilirubin 0.8 (0.0-1.0) mg/dL AST 21 (5-31) U/L ALT 21 (0-31) U/L Alkaline Phosphatase 84 (39-117) U/L Troponin I High Sens 17.3 H 16.4 (<3.5-17.0) ng/L B-Natriuretic Peptide 55 (<100) pg/mL Total Protein 7.1 (6.5-8.0) g/dL Albumin 3.7 (3.5-5.0) g/dL Lipase 15 (8-78) U/L Urine Color Yellow Urine Appearance Clear Urine pH 8.0 (5.0-9.0) Ur Specific [place] >= 1.030 H (1.005-1.025) Urine Protein Trace (Neg-Trace) mg/dL Urine Glucose (UA) Negative (Negative) mg/dL Urine Ketones Negative (Negative) mg/dL Urine Blood Negative (Negative) Urine Nitrite Negative (Negative) Ur Leukocyte Esterase Trace H (Negative) Urine RBC 0-2 (0-2) /HPF Urine WBC 6-10 H (0-5) /HPF Ur Squamous Epith Cells 3-5 (0-2) /HPF Urine Bacteria None Seen (None Seen) Hyaline Casts 0-2 (0-2) /LPF Independent Interpretation I performed an independent interpretation of an: EKG (EKG normal sinus rhythm rate of 82. Low-voltage QRS. QTC 493. No significant change when compared to priors. No STEMI) Radiology Impression Discussion of test interpretation with radiology: I have reviewed the radiologist's reading. Radiologist Impression: CT/CT abdomen pelvis w IV con IMPRESSION: Normal appendix. Diverticulosis. No evidence of diverticulitis. Atrophic left kidney. 1 cm low-attenuation lesion in the lower pole of the right kidney not compatible with a simple cyst. Dedicated renal imaging with CT or MR with and without IV contrast recommended. This was not seen on recent abdominal ultrasound March 2022. 3.3 x 3.9 cm abdominal aortic aneurysm. Abdominal aortic aneurysm follow up recommendations Follow-up intervals for imaging an enlarged infrarenal abdominal aorta from initial detection: * <2.5 cm: follow up not needed * 2.5-2.9 cm: 5 year interval * 3.0-3.4 cm: 3 year interval * 3.5-3.9 cm: 2 year interval * 4.0-4.4 cm: 1-year interval * 4.5-4.9 cm: 6-month interval * 5.0-5.5 cm: 3-6 month interval * >5.5 cm: treatment Notes: Aneurysms greater than 5.0 cm in diameter in women and 5.5 cm in men carry a significantly increased risk of rupture and should be treated. Additional indications for repair: * an increase in diameter of 5 mm in 6 months * a symptomatic aneurysm In patients with a connective tissue disorder (e.g. Marfan syndrome), especially those with a bicuspid aortic valve, surgical treatment may be considered even with a diameter smaller than 5.0 cm. External Record Review External record reviewed: Inpatient record, Office record, Outpatient record, Prior outpatient labs, Prior outpatient radiology, Primary care record and Outside ED record Tests considered The following testing was considered but not selected: As above Chronic Conditions Patient?s care impacted by: Other (CHRISTIANO, COPD) Discharge Plan Discharge Clinical Impression: Atypical chest pain, Shortness of breath, Abdominal pain, Kidney lesion, Abdominal aortic aneurysm (AAA) 3.0 cm to 5.0 cm in diameter in female Patient Disposition: Home, Self-Care Additional Instructions: Was discussed the CT imaging today did reveal an abdominal aortic aneurysm which you are already aware of please continue to follow-up with your primary care provider in regards to this. The CT also revealed a 1 cm lesion to the right kidney, please contact your primary care provider to arrange for follow-up dedicated renal imaging with CT or MRI with and without IV contrast. Contact your primary care provider to arrange for a follow-up visit within 1-3 days. You may return back to the emergency department with any new or worsening symptoms or concerns. Prescriptions: No Action diltiazem HCl 360 mg capsule,extended release 24hr 360 mg PO DAILY Qty: 90 3RF gabapentin 800 mg tablet 800 mg PO TID Qty: 270 3RF amiodarone 100 mg tablet 100 mg PO DAILY Qty: 90 3RF Rx Instructions: New order. Now take 100mg tablet daily. budesonide 0.5 mg/2 mL suspension for nebulization 0.5 mg inhalation BID Qty: 360 0RF albuterol sulfate 2.5 mg /3 mL (0.083 %) solution for nebulization 2.5 mg INHALATION Q4H 30 Days Qty: 180 11RF losartan 25 mg tablet 25 mg PO DAILY Qty: 90 3RF potassium chloride [Klor-Con M10] 10 mEq tablet,ER particles/crystals 10 meq PO DAILY 90 Days Qty: 90 2RF baclofen 10 mg tablet 10 mg PO BID 90 Days Qty: 180 2RF warfarin 5 mg tablet 5 mg PO DAILY 90 Days Qty: 90 2RF Protocol: Dose Management Condition: Friday (Week One) Dose/Route: 5 mg Instruction: 1 x 5 mg tablet Condition: Friday Dose/Route: 2.5 mg Instruction: 0.5 x 5 mg tablets Condition: Friday Dose/Route: 5 mg Instruction: 1 x 5 mg tablet Condition: Friday Dose/Route: 5 mg Instruction: 1 x 5 mg tablet Condition: Dose/Route: 5 mg Instruction: 1 x 5 mg tablet Condition: Friday Dose/Route: 5 mg Instruction: 1 x 5 mg tablet Condition: Friday Dose/Route: 5 mg Instruction: 1 x 5 mg tablet Condition: Friday (Week Two) Dose/Route: 5 mg Instruction: 1 x 5 mg tablet Condition: Friday Dose/Route: 2.5 mg Instruction: 0.5 x 5 mg tablets Condition: Friday Dose/Route: 5 mg Instruction: 1 x 5 mg tablet Condition: Friday Dose/Route: 5 mg Instruction: 1 x 5 mg tablet Condition: Dose/Route: 5 mg Instruction: 1 x 5 mg tablet Condition: Friday Dose/Route: 5 mg Instruction: 1 x 5 mg tablet Condition: Friday Dose/Route: 5 mg Instruction: 1 x 5 mg tablet Protocol Text: Adjustment Start Date: Friday06/27/23 INR Value: 2.2 INR Date: 06/27/23 Recheck Date: 07/25/23 nystatin 100,000 unit/gram cream 1 appl topical DAILY 10 Days Qty: 30 1RF (DME) Blood Pressure Cuff Misc See Rx Instructions .ROUTE .MEDSUPPLY Qty: 1 0RF Rx Instructions: As directed cetirizine [Allergy Relief (cetirizine)] 10 mg tablet 10 mg PO DAILY mupirocin 2 % ointment 1 appl topical TID Qty: 22 0RF Prolia 60 mg/mL syringe 60 mg subcut [id number] furosemide 40 mg tablet 40 mg PO BID omeprazole 20 mg capsule,delayed release(DR/EC) 20 mg PO DAILY CANNIBIS PO Rx Instructions: TAKE 1 GUMMY PO Q AM AND Q PM Citrucel 500 mg tablet 1,000 mg PO DAILY Qty: 60 3RF Repatha SureClick 140 mg/mL pen injector 140 mg subcut Q2W Qty: 2 5RF (DME) Oxygen Home Use Kit See Rx Instructions .Route Rx Instructions: As directed roflumilast [Daliresp] 500 mcg tablet 500 mcg PO DAILY 90 Days Qty: 90 3RF albuterol sulfate 90 mcg/actuation HFA aerosol inhaler 2 inh inhalation Q6H PRN (Reason: shortness of breath or wheezing) 30 Days Qty: 18 12RF diclofenac sodium [Voltaren Arthritis Pain] 1 % gel 2 g topical QID Rx Instructions: apply to single elbow, wrist or hand; for hand includes palm/fingers/back of hand Referrals: Josue Lewis PA-C [Primary Care Provider] -
[2023-07-22 14:14] LABS: MANUAL DIFF FLAG NO
[2023-07-22 14:18] LABS: Basophils Percent Auto 0.4 % (0-2); Eosinophils Percent Auto 0.5 % (0-4); Hematocrit 39.5 % (37.0-47.0); Hemoglobin 13.4 g/dl (12.0-16.0); Imm Gran Abs Auto 0.08 X10*3/uL (0.00-0.03); Imm Gran Pct Auto 0.9 % (0.0-0.4); Lymphocytes Percent Auto 12.3 % (20-40); Mean Corpuscular HGB Conc 33.9 g/dl (31.0-35.0); Mean Corpuscular Hemoglobin 31.3 pg (27.0-33.0); Mean Corpuscular Volume 92.3 fL (80.0-98.0); Mean Platelet Volume 8.9 fL (9.4-12.3); Monocytes Absolute Auto 0.8 X10*3/uL (0.1-1.2); Monocytes Percent Auto 9.4 % (2-11); Neutrophils Absolute Auto 6.5 x10*3/uL (2.0-8.3); Neutrophils Percent Auto 76.5 % (45-73); Platelet Count 242 X10*3/uL (160-400); Red Blood Count 4.28 X10*6/uL (4.20-5.50); Red Cell Distribution Width 13.7 % (11.0-16.0); White Blood Count 8.5 X10*3/uL (4.8-10.8)
[2023-07-22 14:37] LABS: B Type Natriuretic Peptide 55 pg/mL (<100)
[2023-07-22 14:39] LABS: Troponin-I High Sensitivity 17.3 ng/L (<3.5-17.0)
[2023-07-22 14:40] LABS: Alanine Aminotransferase 21 U/L (0-31); Albumin Level 3.7 g/dL (3.5-5.0); Alkaline Phosphatase 84 U/L (39-117); Anion Gap 14 (12-20); Aspartate Amino Transferase 21 U/L (5-31); Bilirubin Total 0.8 mg/dL (0.0-1.0); Blood Urea Nitrogen 15 mg/dL (9-16); Calcium 8.9 mg/dL (8.4-10.2); Carbon Dioxide 29 mmol/L (22-29); Chloride 98 mmol/L (96-108); Creatinine Clr Calc Pharmacy 50.2; Estimated Glomerular Filt Rate 44; Glucose Random 103 mg/dL (60-115); Magnesium 2.1 mg/dL (1.6-2.6); Potassium 3.2 mmol/L (3.3-5.1); Sodium 138 mmol/L (135-145); Total Protein 7.1 g/dL (6.5-8.0)
[2023-07-22 14:55] LABS: INTERNATIONAL NORM RATIO 1.8 (0.9-1.1); Prothrombin Time 21.4 SEC (11.1-13.3)
[2023-07-22 15:25] VITALS: BP 97/71; PULSE 89; RESP 18; TEMP 36.7; O2SAT 96
--- NOTE | 2023-07-22 15:28 | PC.NURSE ---
Addendum entered by Vera Rutledge 07/22/23 15:37: pt has hx of CHF. 2+ pitting edema noted on LE bilaterally. provider aware. Original Note: a&ox3, vss, nsr on the registered nurse cardiac telemetry. pt comes in today d/t substernal burning sensation that started on friday. pt states that burning sensation radiates to lower back bilaterally - back pain started on friday as well. pt states SOB at this time. pt has hx of COPD - denies use of steroids d/t the weight the medication made her gain. pt currently on 2L via NC. pt fluctuates between 2-2.5L via NC baseline during the day at home as well as 3L via NC at night. pt also verbalizes use of cpap machine d/t sleep apnea. pt denies hx kidney stones/urinary symptoms at this time. pt states she has not been able to keep anything down for the past week. lung sounds clear throughout. RLQ tender upon palpation. provider bedside and aware of assessment at this time. pt aware of plan of care at this time.
--- NOTE | 2023-07-22 15:48 | PC.NURSE ---
pt currently in x-ray. will obtain IV access and administer medications/draw labs when pt returns.
[2023-07-22 16:20] LABS: Lipase 15 U/L (8-78)
[2023-07-22 16:25] VITALS: PULSE 82; RESP 19; O2SAT 93
[2023-07-22] MEDS: levalbuterol HCL 1.25 MG/3 ML VIAL.NEB INHALE (16:25)
[2023-07-22] MEDS: Potassium Chloride Packet 20 MEQ PACKET 60 MEQ PO (16:28)
--- NOTE | 2023-07-22 16:28 | PC.NURSE ---
pt returned from x-ray. RT bedside provider pt w/ breathing treatment. delay in medication administration d/t pt being in x-ray. pt now medicated per provider order.
[2023-07-22 16:29] VITALS: PULSE 82; RESP 18; O2SAT 93
--- NOTE | 2023-07-22 16:35 | PC.NURSE ---
20gIV placed in the right AC w/o complications. pt's lung sounds remain clear throughout post breathing treatment. pt resting comfortably in no apparent distress. respirations even and unlabored. pt aware of plan of are at this time. call fox placed within reach.
[2023-07-22] MEDS: iohexoL 350 MG/ML 100 ML INFUS..BTL IV (17:01)
[2023-07-22 18:00] VITALS: BP 118/47; PULSE 92; RESP 18; TEMP 36.9; O2SAT 94
[2023-07-22 18:47] LABS: Troponin-I High Sensitivity 16.4 ng/L (<3.5-17.0)
[2023-07-22 19:54] LABS: Appearance Urine Clear; Color Urine Yellow; Glucose Urine UA Negative (Negative); Leukocyte Esterase Urine Trace (Negative); Nitrite Urine Negative (Negative); Specific Gravity - Urine >= 1.030 (1.005-1.025); UMIC TRIGGER UACC YES; Urine Blood Negative (Negative); Urine Ketones Negative (Negative); Urine Protein Trace mg/dL (Neg-Trace)
[2023-07-22 20:24] LABS: Bacteria Urine None Seen (None Seen); Hyaline Casts Urine 0-2 /LPF (0-2); RBC Urine 0-2 /HPF (0-2); UACC Culture Trigger YES
--- NOTE | 2023-07-22 21:40 | PC.NURSE ---
Assumed care of patient at 1900
== END 2023-07-22 21:40 | disposition home or self-care (01) ==
PROVIDERS: Physician Assistant; Emergency Provider Emergency Medicine; PCP Physician Assistant
DX: R07.89 Other chest pain (principal); I71.40 Abdominal aortic aneurysm, without rupture, unspecified; R06.02 Shortness of breath; R11.2 Nausea with vomiting, unspecified; Z87.891 Personal history of nicotine dependence; Z79.899 Other long term (current) drug therapy
CPT/HCPCS: 36415; 71045; 71046; 74177; 80053; 81001; 81003; 83690; 83735; 83880; 84484; 85025; 85610; 87086; 93005; 94640; 99284; 99285; Q9967

== ENCOUNTER 2023-07-25 09:49 | Outpatient (AMB) | payer MEDICARE, SELFPAY ==
[2023-07-25 10:15] LABS: Prothrombin Time Whole Bld POC 29.9 sec (11.1-13.5); ~PT, ~INR - Anti Coag Clinic 2.5 (0.9-1.1)
--- NOTE | 2023-07-25 10:25 | MHC.OFFVISCO ---
Intake Intake Visit Reasons: Anticoagulation Allergies latex [LATEX] Allergy (Intermediate, Verified 07/25/23 10:06) RASH GUILLERMO Inhibitors Allergy (Mild, Verified 07/25/23 10:06) cough varenicline [From Chantix] Allergy (Mild, Verified 07/25/23 10:06) hives rosuvastatin Adverse Reaction (Intermediate, Verified 07/25/23 10:06) Muscle Pain barium sulfate Adverse Reaction (Mild, Verified 07/25/23 10:06) burn on face nicotine Adverse Reaction (Mild, Verified 07/25/23 10:06) rash lisinopril Adverse Reaction (Verified 07/25/23 10:06) cough statins Allergy (Severe, Uncoded 07/25/23 10:06) edema seasonal Allergy (Mild, Uncoded 07/25/23 10:06) seasonal allergies watermelon rind Adverse Reaction (Intermediate, Uncoded 07/25/23 10:06) Cough Medication List - Last Reconciled 07/25/23 by Lucia Barney RN albuterol sulfate 2.5 mg (3 mL) inhalation Q4H 30 days albuterol sulfate 90 mcg/actuation 2 inhalations inhalation Q6H PRN 30 days amiodarone 100 mg PO DAILY baclofen 10 mg PO BID 90 days budesonide 0.5 mg (2 mL) inhalation BID [CANNIBIS TAKE 1 GUMMY PO Q AM AND Q PM ] cetirizine (Allergy Relief (cetirizine)) 10 mg PO DAILY denosumab (Prolia) 60 mg subcut [id number] diclofenac sodium 1% (Voltaren Arthritis Pain) 2 grams topical QID diltiazem HCl 360 mg PO DAILY evolocumab (Repatha SureClick) 140 mg subcut Q2W furosemide 40 mg PO BID gabapentin 800 mg PO TID losartan 25 mg PO DAILY methylcellulose (laxative) (Citrucel) 1,000 mg (2 x 500 mg) PO DAILY miscellaneous medical supply (Blood Pressure Cuff) As directed mupirocin 2% 1 appl topical TID nystatin 1 appl topical DAILY 10 days omeprazole 20 mg PO DAILY Oxygen Home Use As directed potassium chloride ER (Klor-Con M) 10 mEq PO DAILY 90 days roflumilast (Daliresp) 500 mcg PO DAILY 90 days warfarin 5 mg See Protocol PO DAILY 90 days Nursing Note Amb to [facility] feeling ok, was in ED on 07/22 for resp concerns, cough, loss of appetite, no covid testing done, had INR was 1.8 had cat scan of body and sts there is a lesion on my kidney-is waiting for F/U appointments related to that Medications and supplements reviewed, no changes No changes in health, diet, medications, or supplements, appetite slowly improving, tylenol for head ache Denies any unusual signs and symptoms of bruising, bleeding Denies any new Chest pain, SOB, or clotting INR: 2.5 in therapeutic range Nutritional guidance given: balance greens and reds in diet, be consistent Dose: continue usual dosing;2.5mg x 1 day and 5mg x 6 days F/U INR: 4 weeks, unless needs earlier appointment related to medical concerns Patient verbalizes understanding of instructions given with accurate read back/ teach back of dosing Anti-Coag Initial Assessment Social Hx Patient Tobacco Use Status: Former Tobacco user Quit Date: 09/20/2019 alcohol intake: current Alcohol intake frequency: holidays/special occasions only Coding Level of Care Code Est Patient Level 1 Diagnoses Current use of anticoagulant therapy Z79.01 Time Spent (min) 15 Assessment & Plan Assessment & Plan (1) Current use of anticoagulant therapy: Code(s): 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
== END 2023-07-25 12:43 | disposition home or self-care (01) ==
LOC: HO.ACS 09:49
PROVIDERS: PCP Physician Assistant; Visit Provider Internal Medicine
DX: Z79.01 Long term (current) use of anticoagulants (principal)

== ENCOUNTER → 2023-07-25 09:49 | Outpatient (BNVA) | payer MEDICARE, SELFPAY | PROVIDERS: PCP Physician Assistant; Visit Provider Internal Medicine | DX: I48.0 Paroxysmal atrial fibrillation (principal); Z79.01 Long term (current) use of anticoagulants; Z51.81 Encounter for therapeutic drug level monitoring | CPT/HCPCS: 85610; 99211 ==

== ENCOUNTER 2023-07-29 11:22 | Outpatient (AMB) | payer MEDICARE, SELFPAY ==
--- NOTE | 2023-07-29 11:31 | A.OFFPC_ITS ---
Vital Signs 07/29/23 11:37 Height 5 ft 4 in Weight 245 lb 2 oz BMI 42.1 BP 130/70 Blood Pressure Location Lt brachial Position Sitting Pulse 86 Pulse Source Pulse Oximeter Pulse Oximetry (%) 95 Oxygen Delivery Method Nasal Cannula Intake Visit Reasons: [facility] 07/22/23 Burning sensation On Lungs Intake Note: Patient is here to follow-up after a visit the emergency department at [facility] on 07/22/23 Photocomposition Keyboard Operator Required: No Malt Liquors Sales Supervisor: Not Required per policy Accompanied by: Self / Same As Patient Allergies latex [LATEX] Allergy (Intermediate, Verified 07/29/23 12:05) RASH GUILLERMO Inhibitors Allergy (Mild, Verified 07/29/23 12:05) cough varenicline [From Chantix] Allergy (Mild, Verified 07/29/23 12:05) hives rosuvastatin Adverse Reaction (Intermediate, Verified 07/29/23 12:05) Muscle Pain barium sulfate Adverse Reaction (Mild, Verified 07/29/23 12:05) burn on face nicotine Adverse Reaction (Mild, Verified 07/29/23 12:05) rash lisinopril Adverse Reaction (Verified 07/29/23 12:05) cough statins Allergy (Severe, Uncoded 07/29/23 11:36) edema seasonal Allergy (Mild, Uncoded 07/29/23 11:36) seasonal allergies watermelon rind Adverse Reaction (Intermediate, Uncoded 07/29/23 11:36) Cough Medication List - Last Reconciled 07/29/23 by TRACEY Guy albuterol sulfate 2.5 mg (3 mL) inhalation Q4H 30 days albuterol sulfate 90 mcg/actuation 2 inhalations inhalation Q6H PRN 30 days amiodarone 100 mg PO DAILY baclofen 10 mg PO BID 90 days budesonide 0.5 mg (2 mL) inhalation BID [CANNIBIS TAKE 1 GUMMY PO Q AM AND Q PM ] cetirizine (Allergy Relief (cetirizine)) 10 mg PO DAILY denosumab (Prolia) 60 mg subcut [id number] diclofenac sodium 1% (Voltaren Arthritis Pain) 2 grams topical QID diltiazem HCl 360 mg PO DAILY evolocumab (Repatha SureClick) 140 mg subcut Q2W furosemide 40 mg PO BID gabapentin 800 mg PO TID losartan 25 mg PO DAILY methylcellulose (laxative) (Citrucel) 1,000 mg (2 x 500 mg) PO DAILY miscellaneous medical supply (Blood Pressure Cuff) As directed mupirocin 2% 1 appl topical TID nystatin 1 appl topical DAILY 10 days omeprazole 20 mg PO DAILY Oxygen Home Use As directed potassium chloride ER (Klor-Con M) 10 mEq PO DAILY 90 days roflumilast (Daliresp) 500 mcg PO DAILY 90 days warfarin 5 mg See Protocol PO DAILY 90 days Tobacco use date assessed: 01/14/23 Fall risk assessment: 1 Fall in past year Last assessed Fall Risk: 07/29/23 Dental Screening Dental Screen Date: 07/29/23 Did you have a dental visit in the last 12 months?: Yes Did you have a dental problem in the last 6 months where you did not have access to dental care?: No Was dental information given to patient?: Patient has dentist HPI HPI Comments History of Present Illness Details 72-year-old female with a past medical h istory of COPD on 2-2.5L NC during the day, HLD, AFib on Coumadin, with an CPAP, cardiomyopathy, hypertension, aortic aneurysm, polymyalgia rheumatica, GERD and obesity. Patient of Carlos Lewis presents today for emergency room follow-up. Patient presented to [facility] Emergency Room, complaining of substernal chest burning radiating to the jaw, chronic shortness of breath with exertional shortness of breath x1 week patient also reports intermittent abdominal pain, nausea with decreased p.o. intake. Patient denied fever, chills, cough, vomiting diarrhea, dysuria or lower extremity edema. CBC unremarkable, INR slightly subtherapeutic at 1.8 patient reports she did follow-up with [facility] Friday after an INR was therapeutic at 2.5. Patient was found to be hypokalemic with potassium 3.2 patient was giving p.o. replacement for this will follow-up on potassium blood work. Troponins flat 17.3-16.3 EKG unremarkable. Chest x-ray showed linear atelectasis or scar in the left lower base. Abdominal CT: CT/CT abdomen pelvis w IV con IMPRESSION: Normal appendix. Diverticulosis. No evidence of diverticulitis. Atrophic left kidney. 1 cm low-attenuation lesion in the lower pole of the right kidney not compatible with a simple cyst. Dedicated renal imaging with CT or MR with and without IV contrast recommended. This was not seen on recent abdominal ultrasound March 2022. 3.3 x 3.9 cm abdominal aortic aneurysm. Patient reports currently following with Dr. Larios for AAA. 1 cm low- attenuation lesion in the lower pole of right kidney not compatible with simple cyst, is recommended patient undergo dedicated renal MRI with and without contrast to further evaluate. Renal MRI ordered urgently with without contrast. Patient reports overall feeling letter denies any recurrence of burning in her lungs, fever, chills, cough or shortness of breath. Continues her continuous 2- 2.L nasal cannula oxygen 95%. [facility] Medical History COPD (chronic obstructive pulmonary disease) Atelectasis Acute and chronic respiratory failure Aortic aneurysm COPD (chronic obstructive pulmonary disease) Arthralgia NICM (nonischemic cardiomyopathy) Hyperlipidemia Arthropathy of cervical spine Cardiomyopathy Paroxysmal A-fib Abdominal pain Chronic respiratory failure CHRISTIANO on CPAP COPD (chronic obstructive pulmonary disease) Surgical History History of esophagogastroduodenoscopy (EGD) Hx of dilation and curettage Hx of cholecystectomy Hx of hysterectomy History of bilateral cataract extraction Trigger finger of thumb Family History Father CHF (congestive heart failure) PNA (pneumonia) Dementia Diabetes HTN (hypertension) Family history of diabetes mellitus Mother CHF (congestive heart failure) MRSA (methicillin resistant Staphylococcus aureus) Son Afib Son Psoriasis Arthritis Daughter Hypothyroid Fibromyalgia Brother No problems noted. Brother No problems noted. Sister No problems noted. Social History Household Members: Spouse and Children Household Members Other:: Daughter Amy, and Remy Housing: House Do you presently have visiting nurse or other home services: No Alcohol intake: current Alcohol intake frequency: holidays/special occasions only Alcohol type: beer and hard liquor Patient Tobacco Use Status: Former Tobacco user Quit Date: 09/20/2019 Years Smoked: 50yrs +/- e-Cigarette/Vaping Use: Never Used Second Hand Smoke Exposure: No Substance Use Type: Marijuana Advance Directives Date on File: 10/27/16 service: No Current occupational status: retired Cognitive needs: Yes (walker) Hearing needs: No Vision needs: Yes (glasses) Questionnaire Thrive Questionnaire Date Thrive assessed: 01/14/23 JOSE-7 AMB Questionnaire JOSE-7 Date JOSE - 7 assessed: 01/14/23 Source: Developed by Drs. David Sky, Alanna Wolf, Jarrett Hess and colleagues, with an educational juliocesar from [employer]. Review of Systems Const Denies chills, Denies fatigue, Denies fever(s) and Denies poor appetite Eyes Denies no additional complaints ENT Reports Normal hearing present Card Denies chest pain, Denies syncope, Denies rapid heart rate and Denies dyspnea Resp Denies cough and Denies dyspnea GI Denies change in stool character, Denies constipation, Denies diarrhea, Denies nausea and Denies vomiting Denies urinary frequency, Denies dysuria and Denies urinary urgency Neuro Reports Normal hearing present, Denies confusion and Denies syncope Psych Denies confusion Endo Denies fatigue Physical exam (Primary Care) Vital Signs: Last Vital Signs Pulse 86 07/29/23 11:37 BP 130/70 07/29/23 11:37 Pulse Ox 95 07/29/23 11:37 Oxygen Delivery Method Nasal Cannula 07/29/23 11:37 BMI result Body Mass Index 42.1 Tobacco/Smoking Status: Tobacco use Status Tobacco use date assessed 01/14/23 07/29/23 11:34 Patient Tobacco Use Status Former Tobacco user 07/29/23 11:34 e-Cigarette/Vaping Use Never Used 07/29/23 11:34 Thrive Assessment: Date of Thrive Assessment Date Thrive assessed 01/14/23 07/29/23 11:34 Const General: No confusion Orientation/consciousness: No confusion HENMT Head: Yes normocephalic and Yes atraumatic Eyes Conjunctivae: conjunctivae normal Chest Chest palpation & inspection: normal inspection of the chest Resp Effort & Inspection: normal respiratory effort Auscultation: clear to auscultation bilaterally, no crackles, no rhonchi and no wheezes Cardio Rate: regular rate Rhythm: regular rhythm Heart sounds: S1 normal heart sound present and S2 normal heart sound present GI Inspection: Yes normal to inspection Neuro General: No confusion Cranial nerves: Yes Normal hearing present Extrem General: No edema Office Procedures Flu Questionnaire Does the patient have a severe egg allergy?: No Does the patient have severe life threatening allergies?: No Does the patient have a fever or illness today?: No Has the patient ever had Guillain-[place] Syndrome?: No Has the patient ever had any past reaction to a flu shot?: No Immunizations flu vacc [id number] 6mos up(PF) 60 mcg(15 mcgx4)/0.5 mL IM syringe Performing Provider: TRACEY Guy [facility] Documented (not given) by: TOYIN Patel on 07/29/23 11:45 Reason Not Given: Patient Refused Assessment and Plan Assessment & Plan (1) Hypokalemia: Code(s): E87.6 - Hypokalemia Plan: Repeat potassium level ordered. (2) Lesion of right barrow kidney: Code(s): N28.9 - Disorder of kidney and ureter, unspecified Plan: Urgent renal MRI ordered to further evaluate. Patient requesting open MRI, noted in ordered. (3) COPD (chronic obstructive pulmonary disease): Code(s): J44.9 - Chronic obstructive pulmonary disease, unspecified Qualifiers: COPD type: emphysema Emphysema type: centrilobular Qualified Code(s): J43.2 - Centrilobular emphysema Plan: Continue on oxygen. Continue to follow-up pulmonology (4) Aortic aneurysm: Code(s): I71.9 - Aortic aneurysm of unspecified site, without rupture Plan: Continue to follow with Cardiology. Recommended AAA follow in 2 years. (5) CHRISTIANO on CPAP: Code(s): G47.33 - Obstructive sleep apnea (adult) (pediatric); Z99.89 - Dependence on other enabling machines and devices Plan: Continue on CPAP for greater than 4 hours a night with good effect. (6) Paroxysmal A-fib: Code(s): I48.0 - Paroxysmal atrial fibrillation Plan: Continue on Coumadin for anticoagulation. Patient reports last INR therapeutic at 2.5 Continue on amiodarone 100 mg daily and diltiazem 360 mg daily for rate control (7) Cardiomyopathy: Comment: Echo EF 55% 10/2018, mod pul HTN, Code(s): I42.9 - Cardiomyopathy, unspecified Qualifiers: Cardiomyopathy type: unspecified Qualified Code(s): I42.9 - Cardiomyopathy, unspecified Plan Keep scheduled follow-up with PCP in August or follow-up sooner if needed Orders: Orders Influenza [id number] Immunization Today Z23 - Encounter for immunization MR kidney wo/w con Today N28.9 - Disorder of kidney and ureter, unspecified Comprehensive Met. Panel Today E87.6 - Hypokalemia Coding Level of Care Code Est Pt Level 4 (38044) Diagnoses Hypokalemia E87.6 Lesion of right barrow kidney N28.9 Centrilobular emphysema J43.2 COPD type: emphysema Emphysema type: centrilobular Aortic aneurysm I71.9 CHRISTIANO on CPAP G47.33; Z99.89 Paroxysmal A-fib I48.0 Cardiomyopathy, unspecified type I42.9 Cardiomyopathy type: unspecified
[2023-07-29 11:37] VITALS: BP 130/70; PULSE 86; O2SAT 95; BMI 42.1
== END 2023-07-29 12:10 | disposition home or self-care (01) ==
PROVIDERS: PCP Physician Assistant; Visit Provider Nurse Practitioner Family
DX: I48.0 Paroxysmal atrial fibrillation (principal); I71.9 Aortic aneurysm of unspecified site, without rupture; J43.2 Centrilobular emphysema; I42.9 Cardiomyopathy, unspecified; E87.6 Hypokalemia; N28.9 Disorder of kidney and ureter, unspecified; G47.33 Obstructive sleep apnea (adult) (pediatric); Z99.89 Dependence on other enabling machines and devices
CPT/HCPCS: 99214

== ENCOUNTER 2023-08-22 09:29 | Outpatient (AMB) | payer MEDICARE, SELFPAY ==
[2023-08-22 09:52] LABS: Prothrombin Time Whole Bld POC 52.6 sec (11.1-13.5); ~PT, ~INR - Anti Coag Clinic 4.4 (0.9-1.1)
--- NOTE | 2023-08-22 10:05 | MHC.OFFVISCO ---
Intake Intake Visit Reasons: Anticoagulation Allergies latex [LATEX] Allergy (Intermediate, Verified 08/22/23 09:47) RASH GUILLERMO Inhibitors Allergy (Mild, Verified 08/22/23 09:47) cough varenicline [From Chantix] Allergy (Mild, Verified 08/22/23 09:47) hives rosuvastatin Adverse Reaction (Intermediate, Verified 08/22/23 09:47) Muscle Pain barium sulfate Adverse Reaction (Mild, Verified 08/22/23 09:47) burn on face nicotine Adverse Reaction (Mild, Verified 08/22/23 09:47) rash lisinopril Adverse Reaction (Verified 08/22/23 09:47) cough statins Allergy (Severe, Uncoded 07/29/23 11:36) edema seasonal Allergy (Mild, Uncoded 07/29/23 11:36) seasonal allergies watermelon rind Adverse Reaction (Intermediate, Uncoded 07/29/23 11:36) Cough Medication List - Last Reconciled 08/22/23 by Charity Cintron RN albuterol sulfate 2.5 mg (3 mL) inhalation Q4H 30 days albuterol sulfate 90 mcg/actuation 2 inhalations inhalation Q6H PRN 30 days amiodarone 100 mg PO DAILY baclofen 10 mg PO BID 90 days budesonide 0.5 mg (2 mL) inhalation BID [CANNIBIS TAKE 1 GUMMY PO Q AM AND Q PM ] cetirizine (Allergy Relief (cetirizine)) 10 mg PO DAILY denosumab (Prolia) 60 mg subcut [id number] diclofenac sodium 1% (Voltaren Arthritis Pain) 2 grams topical QID diltiazem HCl 360 mg PO DAILY evolocumab (Repatha SureClick) 140 mg subcut Q2W 90 days furosemide 40 mg PO BID gabapentin 800 mg PO TID losartan 25 mg PO DAILY methylcellulose (laxative) (Citrucel) 1,000 mg (2 x 500 mg) PO DAILY miscellaneous medical supply (Blood Pressure Cuff) As directed mupirocin 2% 1 appl topical TID nystatin 1 appl topical DAILY 10 days omeprazole 20 mg PO DAILY Oxygen Home Use As directed potassium chloride ER (Klor-Con M) 10 mEq PO DAILY 90 days roflumilast (Daliresp) 500 mcg PO DAILY 90 days warfarin 5 mg See Protocol PO DAILY 90 days Nursing Note PT.HAS INCREASED STRESS WITH FAMILY PROBLEMS, MORE SO RECENTLY. NO CP,INCREASED SOB,MED CHANGES OR SX OF BLEEDING. HOLD WARFARIN TODAY THEN RESUME USUAL DOSE AND FOLLOW-UP IN WEEKS. PT.WILL BE SURE TO HAVE GREENS TODAY AND TOMORROW AND 2-3X WEEKLY. GOOD UNDERSTANDING OF DOSING INSTR. PT.AGREES TO CALL [facility] IF ANY CHANGES,QUESTIONS OR CONCERNS ARISE. 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
== END 2023-08-22 10:08 | disposition home or self-care (01) ==
LOC: HO.ACS 09:29
PROVIDERS: PCP Physician Assistant; Visit Provider Internal Medicine
DX: Z79.01 Long term (current) use of anticoagulants (principal)

== ENCOUNTER → 2023-08-22 09:29 | Outpatient (BNVA) | payer MEDICARE, SELFPAY | PROVIDERS: PCP Physician Assistant; Visit Provider Internal Medicine | DX: J41.0 Simple chronic bronchitis (principal); J96.11 Chronic respiratory failure with hypoxia; G47.33 Obstructive sleep apnea (adult) (pediatric); K21.9 Gastro-esophageal reflux disease without esophagitis; Z99.89 Dependence on other enabling machines and devices; I48.0 Paroxysmal atrial fibrillation; Z79.01 Long term (current) use of anticoagulants; Z51.81 Encounter for therapeutic drug level monitoring | CPT/HCPCS: 85610; 99211; 99212 ==

== ENCOUNTER 2023-08-22 10:10 | Outpatient (AMB) | payer MEDICARE, SELFPAY ==
--- NOTE | 2023-08-22 10:14 | MHC.OFFVIS ---
Intake Vital Signs 08/22/23 10:15 Height 5 ft 4 in Weight 246 lb BMI 42.2 BP 124/62 Blood Pressure Location Lt brachial Position Sitting Pulse 86 Pulse Source Pulse Oximeter Pulse Oximetry (%) 96 Oxygen Delivery Method Nasal Cannula Oxygen Flow Rate 2 Intake Visit Reasons: Shortness of breath Intake Note: pt is here for follow up and states she is not bad, most of her issues is with lower back and than this affects her breathing. cpap usage is going well, small wide mask. Manager Rehab Required: No Allergies latex [LATEX] Allergy (Intermediate, Verified 08/22/23 10:24) RASH GUILLERMO Inhibitors Allergy (Mild, Verified 08/22/23 10:24) cough varenicline [From Chantix] Allergy (Mild, Verified 08/22/23 10:24) hives rosuvastatin Adverse Reaction (Intermediate, Verified 08/22/23 10:24) Muscle Pain barium sulfate Adverse Reaction (Mild, Verified 08/22/23 10:24) burn on face nicotine Adverse Reaction (Mild, Verified 08/22/23 10:24) rash lisinopril Adverse Reaction (Verified 08/22/23 10:24) cough statins Allergy (Severe, Uncoded 08/22/23 10:24) edema seasonal Allergy (Mild, Uncoded 08/22/23 10:24) seasonal allergies watermelon rind Adverse Reaction (Intermediate, Uncoded 08/22/23 10:24) Cough HPI HPI Comments History of Present Illness Details The patient is a 72-year-old woman with a known history atrial fibrillation on Eliquis in addition to amiodarone 200 mg which she takes half a tab. Apparently she worsening respiratory symptoms was admitted to [facility] with acute on chronic hypercarbic and hypoxic respiratory failure. The patient has done well though now she is on oxygen. She quit smoking. We did look at the CT scan demonstrating some small areas of ground-glass opacities. However very limited. No evidence of any significant interstitial lung disease. However, we still have to monitor closely the use of the amiodarone. She still tapering down from the prednisone. Currently she is on 3 L nasal cannula. She does have some snoring at nighttime. She does have headaches in the morning. Headaches are better at this time. She has underlying daytime drowsiness. Her [place] score is elevated 10/19. Sometimes she falls asleep at the dining room table. Patient has not a sleep study. Also, she had an echocardiogram demonstrating moderate pulmonary hypertension does also concerned and could be related to untreated sleep apnea. The patient also had pulmonary function studies demonstrating moderate obstructive ventilatory defect consistent with her degree of COPD. We did go for a walking oximetry. RA saturation 93%, desat to 88% with activity. 97% 2L at rest and maintained 95% on 2 Liters with activity. Pt needs to continue using oxygen. Needs a conserving device trial. 02/19/2022 the patient is here for a pulmonary follow-up visit. Overall the patient has been doing okay. She recently was hospitalized back in November with a COPD exacerbation and bibasilar airspace disease. She was treated with antibiotics. She was also evaluated by Cardiology. She does feel better overall however, she has been requiring her oxygen now 247. Before she just uses as needed and also with activity. She has been noticing some progression of her disease. She has been able to get back to her baseline. We did review her CT scan of the chest demonstrating some atelectatic areas in minimal airspace disease in the bases. The patient is interested in pulmonary rehabilitation. Will have her undergo pulmonary function studies and then follow-up with pulmonary rehabilitation after that. She continues use her PAP therapy. The CPAP therapy continues to be affecting beneficial. She does use it for more than 4 hours a night. She does like her mask. Will go ahead and increase her nebulized therapy to twice a day at least for the next month to see if she has any improving her symptoms. 08/19/2022 the patient is here for a pulmonary follow-up visit. Patient overall has been doing relatively well. She still has she is tolerating CPAP. Developed significant restless leg and muscle spasms the deeper from being with tolerated. She has responded well to baclofen in the past. At this point she can continue the medicine. she continues use her CPAP. The CPAP therapy continues to be affecting beneficial. She does use it more than 4 hours a night. From a respiratory status the patient does have a chronic cough in addition to productive mucus production. Consistent with chronic bronchitis. The patient already has significant comorbidities and she not be on prednisone. Therefore to minimize the prednisone use patient will benefit from starting Daliresp. I will send that to the pharmacy. The patient knows to start slowly to minimize GI adverse effects. We also did review her CT scan she had back in the winter of 2021 demonstrating no evidence of any pulmonary emboli. No pulmonary nodules. The patient did have bilateral mild atelectasis. No additional imaging warranted. 02/19/2023 the patient is here for pulmonary follow-up visit. Still complains of her dyspnea on exertion. Also complains that she still needs to be on the oxygen. She wishes to be off the oxygen a bit more. Unfortunately when she takes it off she does get short of breath very quickly. Usually last about 10 minutes. The patient also been having some chest congestion. She was also start Daliresp which has not started as of yet. I will send her prescription to her mail order in order for to started. She also start slowly to develop tolerance. She does continue to use his CPAP every night. CPAP therapy continues to be affecting beneficial. She has an old machine but is working well and I did suggest that she continue using that machine. Her mask is good fitting. 08/22/2023 the patient is here for a pulmonary follow-up visit. Overall the patient has been doing well from a respiratory status. She continues to have dyspnea on exertion mild to moderate severity. But overall better. She does use respiratory medications well. The medications are getting expensive. I did recommend she can decrease the Daliresp to every other day to see if this provides her with the benefits of the medication but does not cause her to go into the donut hole. The patient also had a CT scan of the abdomen. The lung bases are okay although she does have a right kidney lesion that needs to be further addressed with an MRI. She is concerned about this. In regards to the CPAP the CPAP therapy has been very affecting beneficial. She did come and she talk to our staff here and she found a better fitting mask and her machine is now adjusted and she is tolerating a perfect. Her AHI is not 0.4. She does use more than 4 hours a night in the therapy has been affecting beneficial in she will continue to use it at this time. [facility] Medical History COPD (chronic obstructive pulmonary disease) Atelectasis Acute and chronic respiratory failure Aortic aneurysm COPD (chronic obstructive pulmonary disease) Arthralgia NICM (nonischemic cardiomyopathy) Hyperlipidemia Arthropathy of cervical spine Cardiomyopathy Paroxysmal A-fib Abdominal pain Chronic respiratory failure CHRISTIANO on CPAP COPD (chronic obstructive pulmonary disease) Surgical History History of esophagogastroduodenoscopy (EGD) Hx of dilation and curettage Hx of cholecystectomy Hx of hysterectomy History of bilateral cataract extraction Trigger finger of thumb Family History Father CHF (congestive heart failure) PNA (pneumonia) Dementia Diabetes HTN (hypertension) Family history of diabetes mellitus Mother CHF (congestive heart failure) MRSA (methicillin resistant Staphylococcus aureus) Son Afib Son Psoriasis Arthritis Daughter Hypothyroid Fibromyalgia Brother No problems noted. Brother No problems noted. Sister No problems noted. Social History Household Members: Spouse and Children Household Members Other:: Daughter Amy, and Remy Housing: House Do you presently have visiting nurse or other home services: No Alcohol intake: current Alcohol intake frequency: holidays/special occasions only Alcohol type: beer and hard liquor Patient Tobacco Use Status: Former Tobacco user Quit Date: 09/20/2019 Years Smoked: 50yrs +/- e-Cigarette/Vaping Use: Never Used Second Hand Smoke Exposure: No Substance Use Type: Marijuana Advance Directives Date on File: 10/27/16 service: No Current occupational status: retired Cognitive needs: Yes (walker) Hearing needs: No Vision needs: Yes (glasses) Review of Systems Const Denies chills, Denies fatigue, Denies fever(s), Denies frequent falls, Denies weakness, Denies weight gain and Denies weight loss ENT Denies dizziness Card Denies chest pain, Denies leg edema, Denies lightheadedness, Denies palpitations, Denies dyspnea, Reports dyspnea on exertion, Denies orthopnea and Denies other (Loss of consciousness) Resp Reports cough, Denies dyspnea and Reports dyspnea on exertion GI Denies hematochezia and Denies change in bowel habits Musc Denies abnormal gait, Denies muscle weakness, Denies numbness, Denies radiating pain into limb and Denies tingling Neuro Denies abnormal gait, Denies dizziness, Denies frequent falls, Denies numbness, Denies tingling and Denies weakness Endo Denies fatigue and Denies palpitations Physical Exam Vital Signs: Last Vital Signs Pulse 86 08/22/23 10:15 BP 124/62 08/22/23 10:15 Pulse Ox 96 08/22/23 10:15 Oxygen Delivery Method Nasal Cannula 08/22/23 10:15 Oxygen Flow Rate 2 08/22/23 10:15 BMI result Body Mass Index 42.2 Const General: comfortable and no acute distress Orientation/consciousness: patient oriented x3 HEENT Other: Unremarkable Head: Yes normal to inspection Neck Neck: Yes normal visual inspection Chest Chest palpation & inspection: normal inspection of the chest Resp Auscultation: diminished lung sounds Cardio Palpation: normal PMI Heart sounds: S1 normal heart sound present, S2 normal heart sound present, no gallops, no murmurs and no rubs GI Palpation (GI): Soft to palpation Back/Spine/Pelvis Other: unremarkable Skin General skin exam: no rashes or lesions noted Neuro General: patient oriented x3 Extrem General: Yes normal to inspection Psych Mental Status: mental status grossly normal Assessment & Plan Assessment & Plan (1) COPD (chronic obstructive pulmonary disease): Code(s): J44.9 - Chronic obstructive pulmonary disease, unspecified Qualifiers: COPD type: chronic bronchitis Chronic bronchitis type: simple Qualified Code(s): J41.0 - Simple chronic bronchitis (2) GERD (gastroesophageal reflux disease): Code(s): K21.9 - Gastro-esophageal reflux disease without esophagitis Qualifiers: Esophagitis presence: without esophagitis Qualified Code(s): K21.9 - Gastro-esophageal reflux disease without esophagitis (3) CHRISTIANO on CPAP: Code(s): G47.33 - Obstructive sleep apnea (adult) (pediatric); Z99.89 - Dependence on other enabling machines and devices (4) COPD (chronic obstructive pulmonary disease): Code(s): J44.9 - Chronic obstructive pulmonary disease, unspecified Qualifiers: COPD type: emphysema Emphysema type: centrilobular Qualified Code(s): J43.2 - Centrilobular emphysema (5) Chronic respiratory failure: Code(s): J96.10 - Chronic respiratory failure, unspecified whether with hypoxia or hypercapnia Qualifiers: Respiratory failure complication: hypoxia Qualified Code(s): J96.11 - Chronic respiratory failure with hypoxia Plan continuie budesonide to once day Daliresp 500mcg daily continue DuoNeb twice a day and as needed WILLIAN as needed continue allergy medicine: zyrtec reflux diet continue PPI continue CPAP therapy. F/U 6-8 months Medications: New roflumilast 500 mcg PO DAILY 90 days 90 tabs 3RF Refilled roflumilast (Daliresp) 500 mcg PO DAILY 90 days 90 tabs 3RF Coding Level of Care Code Est Pt Level 4 (55471) Diagnoses Simple chronic bronchitis J41.0 COPD type: chronic bronchitis Chronic bronchitis type: simple Gastroesophageal reflux disease without esophagitis K21.9 Esophagitis presence: without esophagitis CHRISTIANO on CPAP G47.33; Z99.89 Chronic respiratory failure with hypoxia J96.11 Respiratory failure complication: hypoxia Time Spent (min) 16
[2023-08-22 10:15] VITALS: BP 124/62; PULSE 86; O2SAT 96; BMI 42.2
== END 2023-08-22 10:37 | disposition home or self-care (01) ==
PROVIDERS: PCP Physician Assistant; Visit Provider Hospitalist
DX: J41.0 Simple chronic bronchitis (principal); K21.9 Gastro-esophageal reflux disease without esophagitis; G47.33 Obstructive sleep apnea (adult) (pediatric); Z99.89 Dependence on other enabling machines and devices; J96.11 Chronic respiratory failure with hypoxia; J43.2 Centrilobular emphysema
CPT/HCPCS: 99214

== ENCOUNTER 2023-08-26 10:42 | Outpatient (AMB) | payer MEDICARE, SELFPAY ==
--- NOTE | 2023-08-26 10:48 | A.OFFVIS_ITS ---
Intake Vital Signs 08/26/23 10:49 Height 5 ft 4 in Weight 239 lb 6.752 oz BMI 41.1 BP 112/68 Blood Pressure Location Lt brachial Position Sitting Pulse 90 Intake Visit Reasons: 6 mth f/up Intake Note: 6 month follow up Vp Home Health Required: No Accompanied by: Self / Same As Patient Allergies latex [LATEX] Allergy (Intermediate, Verified 08/26/23 10:51) RASH GUILLERMO Inhibitors Allergy (Mild, Verified 08/26/23 10:51) cough varenicline [From Chantix] Allergy (Mild, Verified 08/26/23 10:51) hives rosuvastatin Adverse Reaction (Intermediate, Verified 08/26/23 10:51) Muscle Pain barium sulfate Adverse Reaction (Mild, Verified 08/26/23 10:51) burn on face nicotine Adverse Reaction (Mild, Verified 08/26/23 10:51) rash lisinopril Adverse Reaction (Verified 08/26/23 10:51) cough statins Allergy (Severe, Uncoded 08/26/23 10:51) edema seasonal Allergy (Mild, Uncoded 08/26/23 10:51) seasonal allergies watermelon rind Adverse Reaction (Intermediate, Uncoded 08/26/23 10:51) Cough Medication List - Last Reconciled 08/26/23 by Liang Larios MD albuterol sulfate 2.5 mg (3 mL) inhalation Q4H 30 days albuterol sulfate 90 mcg/actuation 2 inhalations inhalation Q6H PRN 30 days amiodarone 100 mg PO DAILY baclofen 10 mg PO BID 90 days budesonide 0.5 mg (2 mL) inhalation BID [CANNIBIS TAKE 1 GUMMY PO Q AM AND Q PM ] cetirizine (Allergy Relief (cetirizine)) 10 mg PO DAILY denosumab (Prolia) 60 mg subcut [id number] diclofenac sodium 1% (Voltaren Arthritis Pain) 2 grams topical QID diltiazem HCl 360 mg PO DAILY evolocumab (Repatha SureClick) 140 mg subcut Q2W 90 days furosemide 40 mg PO BID gabapentin 800 mg PO TID losartan 25 mg PO DAILY miscellaneous medical supply (Blood Pressure Cuff) As directed mupirocin 2% 1 appl topical TID nystatin 1 appl topical DAILY 10 days omeprazole 20 mg PO DAILY Oxygen Home Use As directed potassium chloride ER (Klor-Con M) 10 mEq PO DAILY 90 days roflumilast (Daliresp) 500 mcg PO DAILY 90 days roflumilast 500 mcg PO DAILY 90 days warfarin 5 mg See Protocol PO DAILY 90 days HPI HPI Comments History of Present Illness Details Huma returns for follow-up regarding atrial fibrillation and cardiomyopathy. She does not have any cardiac symptoms like angina. Chronic shortness of breath related to pulmonary issues. She is also on supplemental oxygen. Otherwise, generally doing okay. [facility] Medical History COPD (chronic obstructive pulmonary disease) Atelectasis Acute and chronic respiratory failure Aortic aneurysm COPD (chronic obstructive pulmonary disease) Arthralgia NICM (nonischemic cardiomyopathy) Hyperlipidemia Arthropathy of cervical spine Cardiomyopathy Paroxysmal A-fib Abdominal pain Chronic respiratory failure CHRISTIANO on CPAP COPD (chronic obstructive pulmonary disease) Surgical History History of esophagogastroduodenoscopy (EGD) Hx of dilation and curettage Hx of cholecystectomy Hx of hysterectomy History of bilateral cataract extraction Trigger finger of thumb Family History Father CHF (congestive heart failure) PNA (pneumonia) Dementia Diabetes HTN (hypertension) Family history of diabetes mellitus Mother CHF (congestive heart failure) MRSA (methicillin resistant Staphylococcus aureus) Son Afib Son Psoriasis Arthritis Daughter Hypothyroid Fibromyalgia Brother No problems noted. Brother No problems noted. Sister No problems noted. Social History Household Members: Spouse and Children Household Members Other:: Daughter Amy, and Remy Housing: House Do you presently have visiting nurse or other home services: No Alcohol intake: current Alcohol intake frequency: holidays/special occasions only Alcohol type: beer and hard liquor Patient Tobacco Use Status: Former Tobacco user Quit Date: 09/20/2019 Years Smoked: 50yrs +/- e-Cigarette/Vaping Use: Never Used Second Hand Smoke Exposure: No Substance Use Type: Marijuana Advance Directives Date on File: 10/27/16 service: No Current occupational status: retired Cognitive needs: Yes (walker) Hearing needs: No Vision needs: Yes (glasses) Review of Systems Const Denies weakness ENT Denies dizziness Card Denies chest pain, Denies chest pain with activity, Denies syncope, Denies rapid heart rate, Denies pedal edema, Denies edema, Denies leg edema, Denies lightheadedness, Denies palpitations, Denies dyspnea, Denies dyspnea on exertion and Denies orthopnea Resp Denies cough, Denies dyspnea and Denies dyspnea on exertion GI Denies hematochezia and Denies change in stool character Musc Denies abnormal gait, Denies muscle cramps, Denies muscle weakness, Denies numbness, Denies radiating pain into limb and Denies tingling Neuro Denies abnormal gait, Denies dizziness, Denies syncope, Denies numbness, Denies tingling and Denies weakness Endo Denies palpitations Physical Exam Vital Signs: Last Vital Signs Pulse 90 08/26/23 10:49 BP 112/68 08/26/23 10:49 BMI result Body Mass Index 41.1 Const General: comfortable and no acute distress Orientation/consciousness: patient oriented x3 HEENT Other: Unremarkable Head: Yes normal to inspection Neck Neck: Yes normal visual inspection Chest Chest palpation & inspection: normal inspection of the chest Resp Auscultation: clear to auscultation bilaterally Cardio Palpation: normal PMI Heart sounds: S1 normal heart sound present, S2 normal heart sound present, no gallops, no murmurs and no rubs GI Palpation (GI): Soft to palpation Back/Spine/Pelvis Other: unremarkable Skin General skin exam: no rashes or lesions noted Neuro General: patient oriented x3 Extrem General: Yes normal to inspection Psych Mental Status: mental status grossly normal Office Procedures EKG Details: EKG with sinus rhythm at 90/Min; no significant ST-T changes; borderline CT prolongation to 204 millisecond; corrected QT is 490 milliseconds. [id number], Complete Assessment & Plan Assessment & Plan (1) Paroxysmal A-fib: Code(s): I48.0 - Paroxysmal atrial fibrillation Plan: On low-dose amiodarone and diltiazem. Continue. Stable thyroid function. Continue anticoagulation. Chest CT from last year shows no evidence of interstitial lung disease. Possibly repeat next year. (2) NICM (nonischemic cardiomyopathy): Code(s): I42.8 - Other cardiomyopathies Plan: Last echocardiogram with LVEF of 60-65%. In the past, has been as low as 35- 40%. Clinically, no heart failure symptoms. (3) Atherosclerotic cardiovascular disease: Code(s): I25.10 - Atherosclerotic heart disease of po[place] coronary artery without angina pectoris Plan: Chest CT scan shows coronary artery calcifications. However, she does not have any angina whatsoever. In 2017, she had perfusion imaging. Suspected artifact or nontransmural infarct with fixed defect at the apical inferior wall and apical anterior septum. She is not able tolerate statins. LDLs are quite high. With regard to Repatha, she has taken a few charge but states that her cost would be very high for the next few months but will come down again October. In that case, may not have any other choice apart from he getting a few months of break and then resuming when the insurance again covers. Check lipids any case. (4) CHRISTIANO on CPAP: Code(s): G47.33 - Obstructive sleep apnea (adult) (pediatric); Z99.89 - Dependence on other enabling machines and devices Plan: Continue CPAP. (5) Encounter for monitoring amiodarone therapy: Code(s): Z51.81 - Encounter for therapeutic drug level monitoring; Z79.899 - Other skilled nursing (current) drug therapy Plan: Stable TSH. In the last CT scan of the chest, there is no finding to suggest pulmonary fibrosis. Coding Level of Care Code Est Pt Level 4 (50108) Diagnoses Paroxysmal A-fib I48.0 NICM (nonischemic cardiomyopathy) I42.8 Atherosclerotic cardiovascular disease I25.10 CHRISTIANO on CPAP G47.33; Z99.89 Encounter for monitoring amiodarone therapy Z51.81; Z79.899 CPT Codes EKG - CPT: 66224-[id number], Complete ([id number])
[2023-08-26 10:49] VITALS: BP 112/68; PULSE 90; BMI 41.1
== END 2023-08-26 11:10 | disposition home or self-care (01) ==
PROVIDERS: Visit Provider Internal Medicine
DX: I48.0 Paroxysmal atrial fibrillation (principal); I42.8 Other cardiomyopathies; I25.10 Atherosclerotic heart disease of native coronary artery without angina pectoris; G47.33 Obstructive sleep apnea (adult) (pediatric); Z99.89 Dependence on other enabling machines and devices; Z51.81 Encounter for therapeutic drug level monitoring; Z79.899 Other long term (current) drug therapy
CPT/HCPCS: 93010; 99214

== ENCOUNTER → 2023-08-26 10:42 | Outpatient (BNVA) | payer MEDICARE, SELFPAY | PROVIDERS: Visit Provider Internal Medicine | DX: I48.0 Paroxysmal atrial fibrillation (principal); I42.8 Other cardiomyopathies; I25.10 Atherosclerotic heart disease of native coronary artery without angina pectoris; G47.33 Obstructive sleep apnea (adult) (pediatric); Z99.89 Dependence on other enabling machines and devices; Z51.81 Encounter for therapeutic drug level monitoring; Z79.899 Other long term (current) drug therapy | CPT/HCPCS: 93005; 99212 ==

== ENCOUNTER 2023-09-05 10:07 | Outpatient (AMB) | payer MEDICARE, SELFPAY ==
[2023-09-05 10:19] LABS: Prothrombin Time Whole Bld POC 41.4 sec (11.1-13.5); ~PT, ~INR - Anti Coag Clinic 3.4 (0.9-1.1)
--- NOTE | 2023-09-05 10:36 | MHC.OFFVISCO ---
Intake Intake Visit Reasons: Anticoagulation Allergies latex [LATEX] Allergy (Intermediate, Verified 09/05/23 10:11) RASH GUILLERMO Inhibitors Allergy (Mild, Verified 09/05/23 10:11) cough varenicline [From Chantix] Allergy (Mild, Verified 09/05/23 10:11) hives rosuvastatin Adverse Reaction (Intermediate, Verified 09/05/23 10:11) Muscle Pain barium sulfate Adverse Reaction (Mild, Verified 09/05/23 10:11) burn on face nicotine Adverse Reaction (Mild, Verified 09/05/23 10:11) rash lisinopril Adverse Reaction (Verified 09/05/23 10:11) cough statins Allergy (Severe, Uncoded 09/05/23 10:11) edema seasonal Allergy (Mild, Uncoded 09/05/23 10:11) seasonal allergies watermelon rind Adverse Reaction (Intermediate, Uncoded 09/05/23 10:11) Cough Medication List - Last Reconciled 09/05/23 by Thi Heredia RN albuterol sulfate 2.5 mg (3 mL) inhalation Q4H 30 days albuterol sulfate 90 mcg/actuation 2 inhalations inhalation Q6H PRN 30 days amiodarone 100 mg PO DAILY baclofen 10 mg PO BID 90 days budesonide 0.5 mg (2 mL) inhalation BID [CANNIBIS TAKE 1 GUMMY PO Q AM AND Q PM ] cetirizine (Allergy Relief (cetirizine)) 10 mg PO DAILY denosumab (Prolia) 60 mg subcut [id number] diclofenac sodium 1% (Voltaren Arthritis Pain) 2 grams topical QID diltiazem HCl TAKE 1 CAPSULE BY MOUTH DAILY evolocumab (Repatha SureClick) 140 mg subcut Q2W 90 days furosemide 40 mg PO BID gabapentin 800 mg PO TID losartan 25 mg PO DAILY miscellaneous medical supply (Blood Pressure Cuff) As directed mupirocin 2% 1 appl topical TID nystatin 1 appl topical DAILY 10 days omeprazole 20 mg PO DAILY Oxygen Home Use As directed potassium chloride ER (Klor-Con M) 10 mEq PO DAILY 90 days roflumilast (Daliresp) 500 mcg PO DAILY 90 days roflumilast 500 mcg PO DAILY 90 days warfarin 5 mg See Protocol PO DAILY 90 days Nursing Note INR: 3.4 JUST OUT OF therapeutic range Medications and supplements reviewed PT VERBALIZED CONCERNS TODAY: SMALL LUMP ON AREA OF LOWER LEFT LEG, PALPABLE FEELS ABOUT PEA SIZE- NOT SURE WHAT IT IS -QUESTION IF SUPERFICIAL CLOT, STATES SHE HAS SOMETHING ON HER ONLY KIDNEY ALSO WAITING FOR RESULTS(MAY BE EFFECTING THE INR) , C/O OF INSIDE LATERAL KNEE PAIN- GAVE INFO ON PLATELET PLASMA INJECTIONS BY ORTHO AND PAIN CLINIC - ENC TO DISCUSS WITH PCP SHE HAS BEEN EATING SEVERAL SERVINGS OF GREENS / WEEK DIET SHOULD BE BALACING HER INR Denies any signs and symptoms of bleeding or bruising or clotting. Bleeding, bruising, clotting discussed Nutritional guidance given -KEEP EATING A MIX OF FRUITS AND VEGETABLES DOSE: DECREASE TODAY'S DOSE ONLY 2.5 MG9 X 2 DAYS THIS WEEK ) THEN RESUME USUAL DOSE 2.5MG X 1 DAY / 5MG X 6 DAYS - MAY BE BETTER THAT HER INR ON THINNER SIDE OF HER RANGE THAN LOWER SIDE UNTIL SHE HAD DEFINITIVE DIAGNOSIS OF ALL HER SITUATIONS F/U INR: 09/25/23 PER PT REQUEST AFTER THANKSGIVING SHE HAS MD F/U APPT 09/23/23 CALL WITH ANY HEALTH OR MED CHANGES Patient verbalizes understanding of instructions given Anti-Coag Initial Assessment Social Hx Patient Tobacco Use Status: Former Tobacco user Quit Date: 09/20/2019 alcohol intake: current Alcohol intake frequency: holidays/special occasions only Coding Level of Care Code Est Patient Level 1 Diagnoses Current use of anticoagulant therapy Z79.01 Assessment & Plan Assessment & Plan (1) Current use of anticoagulant therapy: Code(s): Z79.01 - custodial (current) use of anticoagulants Category: Medical
== END 2023-09-05 10:50 | disposition home or self-care (01) ==
LOC: HO.ACS 10:07
PROVIDERS: PCP Physician Assistant; Visit Provider Internal Medicine
DX: Z79.01 Long term (current) use of anticoagulants (principal)

== ENCOUNTER → 2023-09-05 10:07 | Outpatient (BNVA) | payer MEDICARE, SELFPAY | PROVIDERS: PCP Physician Assistant; Visit Provider Internal Medicine | DX: I48.0 Paroxysmal atrial fibrillation (principal); Z79.01 Long term (current) use of anticoagulants; Z51.81 Encounter for therapeutic drug level monitoring | CPT/HCPCS: 85610; 99211 ==

== ENCOUNTER 2023-09-23 10:02 | Outpatient (AMB) | payer MEDICARE, SELFPAY ==
--- NOTE | 2023-09-23 10:19 | A.OFFPC_ITS ---
Vital Signs 09/23/23 10:20 Height 5 ft 4 in Weight 244 lb 8 oz BMI 42.0 BP 130/72 Blood Pressure Location Lt brachial Position Sitting Pulse 78 Pulse Source Pulse Oximeter Pulse Oximetry (%) 96 Oxygen Delivery Method Nasal Cannula Oxygen Flow Rate 2 Intake Visit Reasons: 4 month f/u Convenience Store Clerk Required: No Accompanied by: Self / Same As Patient Allergies latex [LATEX] Allergy (Intermediate, Verified 09/23/23 10:50) RASH GUILLERMO Inhibitors Allergy (Mild, Verified 09/23/23 10:50) cough varenicline [From Chantix] Allergy (Mild, Verified 09/23/23 10:50) hives rosuvastatin Adverse Reaction (Intermediate, Verified 09/23/23 10:50) Muscle Pain barium sulfate Adverse Reaction (Mild, Verified 09/23/23 10:50) burn on face nicotine Adverse Reaction (Mild, Verified 09/23/23 10:50) rash lisinopril Adverse Reaction (Verified 09/23/23 10:50) cough statins Allergy (Severe, Uncoded 09/23/23 10:24) edema seasonal Allergy (Mild, Uncoded 09/23/23 10:24) seasonal allergies watermelon rind Adverse Reaction (Intermediate, Uncoded 09/23/23 10:24) Cough Medication List - Last Reconciled 09/23/23 by Josue Lewis PA-C albuterol sulfate 2.5 mg (3 mL) inhalation Q4H 30 days albuterol sulfate 90 mcg/actuation 2 inhalations inhalation Q6H PRN 30 days amiodarone 100 mg PO DAILY baclofen 10 mg PO BID 90 days budesonide 0.5 mg (2 mL) inhalation BID [CANNIBIS TAKE 1 GUMMY PO Q AM AND Q PM ] cetirizine (Allergy Relief (cetirizine)) 10 mg PO DAILY denosumab (Prolia) 60 mg subcut [id number] diclofenac sodium 1% (Voltaren Arthritis Pain) 2 grams topical QID diltiazem HCl TAKE 1 CAPSULE BY MOUTH DAILY evolocumab (Repatha SureClick) 140 mg subcut Q2W 90 days furosemide 40 mg PO BID gabapentin 800 mg PO TID losartan 25 mg PO DAILY miscellaneous medical supply (Blood Pressure Cuff) As directed mupirocin 2% 1 appl topical TID nystatin 1 appl topical DAILY 10 days omeprazole 20 mg PO DAILY Oxygen Home Use As directed potassium chloride ER (Klor-Con M) 10 mEq PO DAILY 90 days roflumilast (Daliresp) 500 mcg PO DAILY 90 days roflumilast 500 mcg PO DAILY 90 days warfarin 5 mg See Protocol PO DAILY 90 days Tobacco use date assessed: 01/14/23 Fall risk assessment: No Falls in past year Last assessed Fall Risk: 09/23/23 Dental Screening Dental Screen Date: 09/23/23 Did you have a dental visit in the last 12 months?: No Did you have a dental problem in the last 6 months where you did not have access to dental care?: No Was dental information given to patient?: No (no insurance) HPI 4 month f/u HPI Details Patient is a 72-year-old female here today for follow-up visit..?? Patient has a past medical history significant for advanced COPD, nonischemic cardiomyopathy, paroxysmal AFib, p.m. or, morbid obesity, hyperlipidemia, CHRISTIANO. .. Concern---> has a small subcutaneous palpable mobile lump noted over the back side of her left calf. Has been off of prednisone and reports her leg swelling is much improved. She reports she has no further pain in her lower legs. She continues to have arthritic pain in both better lateral knees that has been a problem. Hyperlipidemia: Is followed by Cardiology, LDL and total cholesterol quite high for her cardiovascular risk. Patient is started on Repatha by her director financial analysis though was much too expensive. Will restart Repatha in October of 2023 CHRONIC MEDICAL CONDITIONS-----> .. Paroxysmal AFib:? Patient is followed by Cardiology ( Dr. Mcintosh) continues on warfarin without any overt signs of bleeding. // COPD/ CHRISTIANO:? Continues to require low-dose continuous O2 throughout the day. Patient is followed by coastal/harbor defense officer Dr. Corona and continues on budesonide updrafts?. Former smoker 1 1/2 years ago. .. PMR: Is followed by Rheumatology .? Unfortunately inflammatory markers still elevated..? She is discouraged that she has not lost any weight since being off prednisone. [facility] Medical History COPD (chronic obstructive pulmonary disease) Atelectasis Acute and chronic respiratory failure Aortic aneurysm COPD (chronic obstructive pulmonary disease) Arthralgia NICM (nonischemic cardiomyopathy) Hyperlipidemia Arthropathy of cervical spine Cardiomyopathy Paroxysmal A-fib Abdominal pain Chronic respiratory failure CHRISTIANO on CPAP COPD (chronic obstructive pulmonary disease) Surgical History History of esophagogastroduodenoscopy (EGD) Hx of dilation and curettage Hx of cholecystectomy Hx of hysterectomy History of bilateral cataract extraction Trigger finger of thumb Family History Father CHF (congestive heart failure) PNA (pneumonia) Dementia Diabetes HTN (hypertension) Family history of diabetes mellitus Mother CHF (congestive heart failure) MRSA (methicillin resistant Staphylococcus aureus) Son Afib Son Psoriasis Arthritis Daughter Hypothyroid Fibromyalgia Brother No problems noted. Brother No problems noted. Sister No problems noted. Social History Household Members: Spouse and Children Household Members Other:: Daughter Amy, and Remy Housing: House Do you presently have visiting nurse or other home services: No Alcohol intake: current Alcohol intake frequency: holidays/special occasions o nly Alcohol type: beer and hard liquor Patient Tobacco Use Status: Former Tobacco user Quit Date: 09/20/2019 Years Smoked: 50yrs +/- e-Cigarette/Vaping Use: Never Used Second Hand Smoke Exposure: No Substance Use Type: Marijuana Advance Directives Date on File: 10/27/16 service: No Current occupational status: retired Cognitive needs: Yes (walker) Hearing needs: No Vision needs: Yes (glasses) Questionnaire Thrive Questionnaire Date Thrive assessed: 01/14/23 JOSE-7 AMB Questionnaire JOSE-7 Date JOSE - 7 assessed: 01/14/23 Source: Developed by Drs. David Sky, Alanna Wolf, Jarrett Hess and colleagues, with an educational juliocesar from [employer]. Review of Systems Const Denies headache(s) Eyes Denies loss of vision ENT Denies vertigo, Denies dizziness, Denies headache(s) and Denies sore throat Card Denies chest pain, Denies leg edema and Denies lightheadedness Resp Denies cough, Denies hemoptysis and Denies wheezing GI Denies abdominal pain, Denies melena, Denies constipation, Denies diarrhea and Denies vomiting Denies urinary frequency, Denies dysuria and Denies urinary urgency Musc Denies arthralgias, Denies joint swelling, Denies numbness and Denies tingling Neuro Denies Abnormal speech present, Denies behavioral changes, Denies vertigo, Denies dizziness, Denies headache(s), Denies loss of vision, Denies memory loss, Denies numbness and Denies tingling Psych Denies anxiety, Denies behavioral changes, Denies depression, Denies memory loss and Denies panic attacks Domingo/Lymph Denies easy bleeding and Denies easy bruising Aller/Immun Denies wheezing Physical exam (Primary Care) Vital Signs: Last Vital Signs Pulse 78 09/23/23 10:20 BP 130/72 09/23/23 10:20 Pulse Ox 96 09/23/23 10:20 Oxygen Delivery Method Nasal Cannula 09/23/23 10:20 Oxygen Flow Rate 2 09/23/23 10:20 BMI result Body Mass Index 42.0 BMI Assessment/Plan discussion: High Tobacco/Smoking Status: Tobacco use Status Tobacco use date assessed 01/14/23 09/23/23 10:20 Patient Tobacco Use Status Former Tobacco user 09/23/23 10:20 e-Cigarette/Vaping Use Never Used 09/23/23 10:20 Thrive Assessment: Date of Thrive Assessment Date Thrive assessed 01/14/23 09/23/23 10:20 Const Other: Morbidly obese General: healthy appearing, no acute distress, alert and awake Nutritional Appearance: well nourished Orientation/consciousness: oriented to person, oriented to place and oriented to time HENMT Ears: TM's normal bilaterally General nose exam: Normal nasal mucous membranes and turbinates present Eyes Conjunctivae: conjunctivae normal Sclerae: sclerae normal Pupils: Equal, round and reactive pupils present Neck Neck: Yes no lymphadenopathy and Yes no JVD Thyroid: Thyroid normal Carotids: no bruits Resp Effort & Inspection: normal respiratory effort and not tachypneic Auscultation: no crackles, no rales, no rhonchi and no wheezes Cardio Rate: regular rate Rhythm: regular rhythm Heart sounds: no murmurs and normal S1 and S2 GI Palpation (GI): Soft to palpation, nontender, no hepatomegaly and no splenomegaly Auscultation: normal bowel sounds Skin General skin exam: no rashes or lesions noted and dry skin Neuro General: oriented to person, oriented to place and oriented to time Cranial nerves: Yes Equal, round and reactive pupils present Speech: No Abnormal speech present Gait exam (Neuro): Normal gait present Motor exam (neuro): no tremor noted Extrem Right upper extremity: full ROM Left upper extremity: full ROM Right lower extremity: full ROM; no edema Left lower extremity: full ROM; no edema Psych Mental Status: mental status grossly normal Speech and movement: Normal speech and movement present Affect: normal affect Attitude: cooperative Thought process: Normal thought process present Office Procedures Flu Questionnaire Does the patient have a severe egg allergy?: No Does the patient have severe life threatening allergies?: No Does the patient have a fever or illness today?: No Has the patient ever had Guillain-[place] Syndrome?: No Has the patient ever had any past reaction to a flu shot?: No Immunizations flu vacc [id number] 6mos up(PF) 60 mcg(15 mcgx4)/0.5 mL IM syringe Performing Provider: Josue Lewis PA-C [facility] Administered by: SOUMYA Mcrae on 09/23/23 11:12 Dose Route Admin Location Dispensed Lot Number Expiration Date NDC Personnel Counselor 0.5 mL IM Left Deltoid 0.5 mL [id number] 04/25/24 [id number] [place] VIS Given Date VIS Provided VIS Publication Date 09/23/23 Single Vaccine 21 Eligibility Eligibility Date Funding Source Not [facility] [place] 09/23/23 Private Assessment and Plan Assessment & Plan (1) HTN (hypertension): Code(s): I10 - Essential (primary) hypertension Qualifiers: Hypertension type: primary hypertension Qualified Code(s): I10 - Essential (primary) hypertension Plan: Patient's blood pressure acceptable today in office, will continue current dose of antihypertensive medication with goal blood pressure to be below 140/90. (2) COPD (chronic obstructive pulmonary disease): Code(s): J44.9 - Chronic obstructive pulmonary disease, unspecified Qualifiers: COPD type: chronic bronchitis Chronic bronchitis type: simple Qualified Code(s): J41.0 - Simple chronic bronchitis Plan: Patient's COPD has been fairly stable with the use albuterol inhaler in new disease modifying drug. Continues to follow pulmonology. (3) Paroxysmal A-fib: Code(s): I48.0 - Paroxysmal atrial fibrillation Plan: Patient continues to follow cardiology. Continues to be anticoagulated with warfarin daily and INRs have been stable. Denies any overt signs of bleeding. No recent episodes of palpitations, dizziness or chest discomforts. (4) Morbid obesity: Code(s): E66.01 - Morbid (severe) obesity due to excess calories Plan: Unfortunately BMI remains above 40 and does understand she needs to work on being more physically active and adapt to better eating habits to reduce her weight (5) Osteoarthritis of right knee: Code(s): M17.11 - Unilateral primary osteoarthritis, right knee Qualifiers: Osteoarthritis type: primary Qualified Code(s): M17.11 - Unilateral primary osteoarthritis, right knee Plan: She continues to on fortunately be injury by bilateral knee osteoarthritis worse on the right side. She is interested cortisone injection will speak with her paint prepper about this. Not candidate for total knee replacement due to not being able to be put under anesthesia. Advised on nonweightbearing exercises and topical treatments. (6) Hyperlipidemia: Code(s): E78.5 - Hyperlipidemia, unspecified Qualifiers: Hyperlipidemia type: mixed hyperlipidemia Qualified Code(s): E78.2 - Mixed hyperlipidemia Plan: Patient's most recent lipid panel very elevated for her cardiovascular risk. Unable to tolerate any statins due to elevations in liver enzymes and myalgias. Has been started on Repatha by her director financial analysis Orders: Orders Lipid Panel 09/23/23 E78.2 - Mixed hyperlipidemia Comprehensive [place]. Panel Fast 09/23/23 E78.2 - Mixed hyperlipidemia Complete Blood Count no Diff 09/23/23 E78.2 - Mixed hyperlipidemia Influenza [id number] Immunization 09/23/23 Z23 - Encounter for immunization Coding Level of Care Code Est Pt Level 4 (56654) Diagnoses Primary hypertension I10 Hypertension type: primary hypertension Simple chronic bronchitis J41.0 COPD type: chronic bronchitis Chronic bronchitis type: simple Paroxysmal A-fib I48.0 Morbid obesity E66.01 Primary osteoarthritis of right knee M17.11 Osteoarthritis type: primary Mixed hyperlipidemia E78.2 Hyperlipidemia type: mixed hyperlipidemia
[2023-09-23 10:20] VITALS: BP 130/72; PULSE 78; O2SAT 96; BMI 42.0
== END 2023-09-23 11:15 | disposition home or self-care (01) ==
PROVIDERS: PCP Physician Assistant; Visit Provider Physician Assistant
DX: Z23 Encounter for immunization (principal)
CPT/HCPCS: 90471; 90686; 99214

== ENCOUNTER 2023-09-25 09:30 | Outpatient (REF) | payer MEDICARE, SELFPAY ==
[2023-09-25 10:32] LABS: Hematocrit 41.4 % (37.0-47.0); Hemoglobin 13.5 g/dl (12.0-16.0); Mean Corpuscular HGB Conc 32.6 g/dl (31.0-35.0); Mean Corpuscular Hemoglobin 31.1 pg (27.0-33.0); Mean Corpuscular Volume 95.4 fL (80.0-98.0); Mean Platelet Volume 8.8 fL (9.4-12.3); Platelet Count 362 X10*3/uL (160-400); Red Blood Count 4.34 X10*6/uL (4.20-5.50); Red Cell Distribution Width 13.9 % (11.0-16.0); White Blood Count 7.5 X10*3/uL (4.8-10.8)
[2023-09-25 10:54] LABS: Alanine Aminotransferase 14 U/L (0-31); Albumin Level 4.1 g/dL (3.5-5.0); Alkaline Phosphatase 93 U/L (39-117); Anion Gap 14 (12-20); Aspartate Amino Transferase 17 U/L (5-31); Bilirubin Total 0.5 mg/dL (0.0-1.0); Blood Urea Nitrogen 19 mg/dL (9-16); Calcium 10.3 mg/dL (8.4-10.2); Carbon Dioxide 34 mmol/L (22-29); Chloride 96 mmol/L (96-108); Cholesterol 260 mg/dL (<200); Estimated Glomerular Filt Rate 40; Glucose Fasting 108 mg/dL (60-99); HDL Cholesterol 83 mg/dL (>40); LDL Cholesterol Calculated 157 mg/dL (<100); Potassium 3.4 mmol/L (3.3-5.1); Sodium 141 mmol/L (135-145); Total Protein 7.8 g/dL (6.5-8.0); Triglycerides 102 mg/dL (<150)
== END 2023-09-25 09:31 | disposition home or self-care (01) ==
LOC: HO.LAB 09:30
PROVIDERS: Absent Provider Physician Assistant; PCP Physician Assistant; Referring Provider Nurse Practitioner Family; Visit Provider Internal Medicine
DX: I48.0 Paroxysmal atrial fibrillation (principal); I10 Essential (primary) hypertension; E78.2 Mixed hyperlipidemia; Z51.81 Encounter for therapeutic drug level monitoring; Z79.01 Long term (current) use of anticoagulants
CPT/HCPCS: 36415; 80053; 80061; 85027; 85610; 99211

== ENCOUNTER 2023-09-25 09:53 | Outpatient (AMB) | payer MEDICARE, SELFPAY ==
--- NOTE | 2023-09-25 10:27 | MHC.OFFVISCO ---
Intake Intake Visit Reasons: Anticoagulation Allergies latex [LATEX] Allergy (Intermediate, Verified 09/25/23 10:08) RASH GUILLERMO Inhibitors Allergy (Mild, Verified 09/25/23 10:08) cough varenicline [From Chantix] Allergy (Mild, Verified 09/25/23 10:08) hives rosuvastatin Adverse Reaction (Intermediate, Verified 09/25/23 10:08) Muscle Pain barium sulfate Adverse Reaction (Mild, Verified 09/25/23 10:08) burn on face nicotine Adverse Reaction (Mild, Verified 09/25/23 10:08) rash lisinopril Adverse Reaction (Verified 09/25/23 10:08) cough statins Allergy (Severe, Uncoded 09/25/23 10:08) edema seasonal Allergy (Mild, Uncoded 09/25/23 10:08) seasonal allergies watermelon rind Adverse Reaction (Intermediate, Uncoded 09/25/23 10:08) Cough Medication List - Last Reconciled 09/25/23 by Thi Heredia RN albuterol sulfate 2.5 mg (3 mL) inhalation Q4H 30 days albuterol sulfate 90 mcg/actuation 2 inhalations inhalation Q6H PRN 30 days amiodarone 100 mg PO DAILY baclofen 10 mg PO BID 90 days budesonide 0.5 mg (2 mL) inhalation BID [CANNIBIS TAKE 1 GUMMY PO Q AM AND Q PM ] cetirizine (Allergy Relief (cetirizine)) 10 mg PO DAILY denosumab (Prolia) 60 mg subcut [id number] diclofenac sodium 1% (Voltaren Arthritis Pain) 2 grams topical QID diltiazem HCl TAKE 1 CAPSULE BY MOUTH DAILY evolocumab (Repatha SureClick) 140 mg subcut Q2W 90 days furosemide 40 mg PO BID gabapentin 800 mg PO TID losartan 25 mg PO DAILY miscellaneous medical supply (Blood Pressure Cuff) As directed mupirocin 2% 1 appl topical TID nystatin 1 appl topical DAILY 10 days omeprazole 20 mg PO DAILY Oxygen Home Use As directed potassium chloride ER (Klor-Con M) 10 mEq PO DAILY 90 days roflumilast (Daliresp) 500 mcg PO DAILY 90 days roflumilast 500 mcg PO DAILY 90 days warfarin 5 mg See Protocol PO DAILY 90 days Nursing Note INR: 2.9 in therapeutic range Medications and supplements reviewed No changes in health, diet, medications, or supplements, Denies any signs and symptoms of bleeding or bruising or clotting. Bleeding, bruising, clotting discussed Nutritional guidance given Dose: 2.5MG X 1 DAY/ 5MG X 6 DAYS F/U INR: [id number] Patient verbalizes understanding of instructions given Anti-Coag Initial Assessment Social Hx Patient Tobacco Use Status: Former Tobacco user Quit Date: 09/20/2019 alcohol intake: current Alcohol intake frequency: holidays/special occasions only Coding Level of Care Code Est Patient Level 1 Diagnoses Current use of anticoagulant therapy Z79.01 Results AMB INR Fingerstick AMB INR Fingerstick 2.9 Last Edit by Thi Heredia RN on 09/25/23 10:21 MANUAL ENTRY Assessment & Plan Assessment & Plan (1) Current use of anticoagulant therapy: Code(s): 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
[2023-09-25 10:36] LABS: Prothrombin Time Whole Bld POC 34.6 sec (11.1-13.5); ~PT, ~INR - Anti Coag Clinic 2.9 (0.9-1.1)
== END 2023-09-25 10:29 | disposition home or self-care (01) ==
LOC: HO.ACS 09:53
PROVIDERS: PCP Physician Assistant; Visit Provider Internal Medicine
DX: Z79.01 Long term (current) use of anticoagulants (principal)

== ENCOUNTER 2023-10-23 12:46 | Outpatient (AMB) | payer MEDICARE, SELFPAY ==
--- NOTE | 2023-10-23 12:47 | A.OFFVIS_ITS ---
Intake Vital Signs 10/23/23 12:56 Height 5 ft 4 in Weight 244 lb 11.41 oz BMI 42.0 BP 110/70 Blood Pressure Location Lt brachial Position Sitting Pulse 92 Pulse Source Pulse Oximeter Temp 97 F Temp Source Skin Pulse Oximetry (%) 94 Oxygen Delivery Method Nasal Cannula Intake Visit Reasons: osetoporosis/Prolia injection Intake Note: Patient presents today for osteoporosis follow up and Prolia injection. c/o back pain and right knee pain Allergies latex [LATEX] Allergy (Intermediate, Verified 10/23/23 12:55) RASH GUILLERMO Inhibitors Allergy (Mild, Verified 10/23/23 12:55) cough varenicline [From Chantix] Allergy (Mild, Verified 10/23/23 12:55) hives rosuvastatin Adverse Reaction (Intermediate, Verified 10/23/23 12:55) Muscle Pain barium sulfate Adverse Reaction (Mild, Verified 10/23/23 12:55) burn on face nicotine Adverse Reaction (Mild, Verified 10/23/23 12:55) rash lisinopril Adverse Reaction (Verified 10/23/23 12:55) cough statins Allergy (Severe, Uncoded 10/23/23 12:55) edema seasonal Allergy (Mild, Uncoded 10/23/23 12:55) seasonal allergies watermelon rind Adverse Reaction (Intermediate, Uncoded 10/23/23 12:55) Cough Medication List - Last Reconciled 10/23/23 by Dru Larios MD albuterol sulfate 2.5 mg (3 mL) inhalation Q4H 30 days albuterol sulfate 90 mcg/actuation 2 inhalations inhalation Q6H PRN 30 days amiodarone 100 mg PO DAILY baclofen 10 mg PO BID 90 days budesonide 0.5 mg (2 mL) inhalation BID [CANNIBIS TAKE 1 GUMMY PO Q AM AND Q PM ] cetirizine (Allergy Relief (cetirizine)) 10 mg PO DAILY denosumab (Prolia) 60 mg subcut [id number] diclofenac sodium 1% (Voltaren Arthritis Pain) 2 grams topical QID diltiazem HCl TAKE 1 CAPSULE BY MOUTH DAILY evolocumab (Repatha SureClick) 140 mg subcut Q2W 90 days furosemide 40 mg PO BID gabapentin 800 mg PO TID losartan 25 mg PO DAILY miscellaneous medical supply (Blood Pressure Cuff) As directed mupirocin 2% 1 appl topical TID nystatin 1 appl topical DAILY 10 days omeprazole 20 mg PO DAILY Oxygen Home Use As directed potassium chloride ER (Klor-Con M) 10 mEq PO DAILY 90 days roflumilast (Daliresp) 500 mcg PO DAILY 90 days roflumilast 500 mcg PO DAILY 90 days warfarin 5 mg See Protocol PO DAILY 90 days HPI HPI Comments History of Present Illness Details This is a 72-year-old female who presents for osteoporosis follow-up. Also here for Prolia injection. Last Prolia injection 03/2023. She was diagnosed with an atypical form of PMR sometime in 2020 and was on prednisone. Prednisone was tapered off since summer without recurrence of symptoms. Patient states that her main problem is her knees. She has bilateral knee os teoarthritis. Received numerous steroid injections over the years. Which were initially helpful then stopped helping. She was told that she would be too high risk for knee replacement given her COPD on home oxygen and cardiomyopathy. She received a nerve block for her left knee back in December of 2022 and she feels that it is quite helpful. She continues to have right knee pain. Has been using a walker for about a year and a half [facility] Medical History COPD (chronic obstructive pulmonary disease) Atelectasis Acute and chronic respiratory failure Aortic aneurysm COPD (chronic obstructive pulmonary disease) Arthralgia NICM (nonischemic cardiomyopathy) Hyperlipidemia Arthropathy of cervical spine Cardiomyopathy Paroxysmal A-fib Abdominal pain Chronic respiratory failure CHRISTIANO on CPAP COPD (chronic obstructive pulmonary disease) Surgical History History of esophagogastroduodenoscopy (EGD) Hx of dilation and curettage Hx of cholecystectomy Hx of hysterectomy History of bilateral cataract extraction Trigger finger of thumb Family History Father CHF (congestive heart failure) PNA (pneumonia) Dementia Diabetes HTN (hypertension) Family history of diabetes mellitus Mother CHF (congestive heart failure) MRSA (methicillin resistant Staphylococcus aureus) Son Afib Son Psoriasis Arthritis Psoriatic arthritis Daughter Hypothyroid Fibromyalgia Brother No problems noted. Brother No problems noted. Sister No problems noted. Social History Household Members: Spouse and Children Household Members Other:: Daughter Amy, and Remy Housing: House Do you presently have visiting nurse or other home services: No Alcohol intake: current Alcohol intake frequency: holidays/special occasions only Alcohol type: beer and hard liquor Patient Tobacco Use Status: Former Tobacco user Quit Date: 09/20/2019 Years Smoked: 50yrs +/- e-Cigarette/Vaping Use: Never Used Second Hand Smoke Exposure: No Substance Use Type: Marijuana Advance Directives Date on File: 10/27/16 service: No Current occupational status: retired Cognitive needs: Yes (walker) Hearing needs: No Vision needs: Yes (glasses) Review of Systems Musc Reports back pain, Reports arthralgias and Reports stiffness Physical Exam Vital Signs: Last Vital Signs Temp 97 F 10/23/23 12:56 Pulse 92 10/23/23 12:56 BP 110/70 10/23/23 12:56 Pulse Ox 94 10/23/23 12:56 Oxygen Delivery Method Nasal Cannula 10/23/23 12:56 BMI result Body Mass Index 42.0 Const General: cooperative, healthy appearing and comfortable Nutritional Appearance: obese morbidly obese Orientation/consciousness: patient oriented x3 Limitations: ambulation with walker HEENT Head: Yes normocephalic and Yes atraumatic Resp Other: On 2 L of oxygen by nasal cannula Effort & Inspection: normal respiratory effort and able to speak in complete sentences Cardio Rate: regular rate Neuro General: patient oriented x3 Extrem Other: Normal range of motion of shoulders Right knee pain with any motion Results Reviewed Results Reviewed: Laboratory Tests 08/16/22 08/16/22 09/14/22 10:02 10:03 15:07 WBC 9.2 RBC 4.28 Hgb 13.2 Hct 41.1 Plt Count 311 Absolute Neuts (auto) 5.8 ESR 75 H Sodium Potassium BUN Creatinine Random Glucose Calcium AST ALT C-Reactive Protein 2.16 H 25-OH Vitamin D Total TSH 11/27/22 11/27/22 08:40 08:40 WBC RBC Hgb Hct Plt Count Absolute Neuts (auto) ESR Sodium 142 Potassium 3.4 D BUN 21 H Creatinine 1.15 Random Glucose 119 H Calcium 9.0 D AST 15 ALT 12 C-Reactive Protein 25-OH Vitamin D Total 24.3 TSH 2.12 Date of Service: 01/03/21 Procedure(s): XR DEXA axial skeleton Accession Number(s): [id number] EXAMINATION: BONE DENSITOMETRY CLINICAL INDICATION: Long-term, current, use of systemic steroids. COMPARISON: Baseline BD dated 07/26/2016. TECHNIQUE: Using a [employer] DXA System (software version: 13.1) manufactured by [employer], dual-energy x-ray absorptiometry was performed of the lumbar spine and left hip. The images are of good technical quality. Summary results are attached. FINDINGS: AP SPINE L1-L4: Current: BMD 0.789 g/cm2, Z-score -2.7, T-score -3.3, osteoporosis, 3.8% decrease from baseline (<5% change is not significant). Baseline: BMD 0.820 g/cm2. LEFT FEMUR, NECK: Current: BMD 0.684 g/cm2, Z-score -1.5, T-score -2.5, osteoporosis. Baseline: BMD 0.745 g/cm2. LEFT FEMUR, TOTAL: Current: BMD 0.764 g/cm2, Z-score -1.2, T-score -1.9, osteopenia, 4.4% decrease from baseline (<5% change is not significant). Baseline: BMD 0.799 g/cm2. IDENTIFIED RISK FACTORS: Low calcium intake, family history (parental hip fracture), glucocorticoids (chronic), menopause. HISTORY OF FRACTURE: None listed. MEDICATIONS: None listed. MM/XR DEXA axial skeleton IMPRESSION: 1. DIAGNOSIS: Osteoporosis based on the lowest T-score value of -3.3 in the lumbar spine applying World Health Organization criteria.? ? 2. 10-YEAR FRACTURE RISK PREDICTION, FRAX: Major osteoporotic fracture (clinical spine, forearm, hip or shoulder) 21.9%. Hip fracture 6.7%. Assessment & Plan Assessment & Plan (1) Polymyalgia rheumatica: Comment: Diagnosed 01/13/2021-off prednisone since February 2022-no return of PMR symptoms Code(s): M35.3 - Polymyalgia rheumatica Plan: This is a 72-year-old female with history of PMR who presents for follow-up. She has been off prednisone since February of 2022 with no recurrence of symptoms. Given patient's chronic conditions and morbid obesity she might have chronically elevated inflammatory markers (2) Osteoporosis: Comment: Started on Prolia 03/15/2021 - present Code(s): M81.0 - Age-related osteoporosis without current pathological fracture Qualifiers: Osteoporosis type: age-related Presence of current pathological fracture: without current pathological fracture Qualified Code(s): M81.0 - Age- related osteoporosis without current pathological fracture Plan: DEXA (01/14) with T-score -3.3 in lumbar spine.? Patient previously was on alendronate however had GI upset. Trialed on Prolia, tolerating this well. Most recent injection was 03/2023. She is due for Prolia injection today. Will repeat DEXA spring Follow-up in 6 months (3) Osteoarthritis of right knee: Code(s): M17.11 - Unilateral primary osteoarthritis, right knee Qualifiers: Osteoarthritis type: primary Qualified Code(s): M17.11 - Unilateral primary osteoarthritis, right knee Plan: Received numerous steroid injections over the years.? Which were initially helpful then stopped helping.? She was told that she would be too high risk for knee replacement given her COPD on home oxygen and cardiomyopathy.? She received a nerve block for her left knee back in December of 2022 and she feels that it is quite helpful. Now right knee is most problematic. Discussed gel injections. Patient will think about it. Advised patient to call our clinic or Orthopedics if she decides to go through with Plan I spent 26 minutes reviewing patient's chart, evaluating patient, ordering diagnostic workup, counseling patient and documenting in the chart Orders: Orders XR DEXA axial skeleton 01/26/24 M81.0 - Age-related osteoporosis without current pathological fracture Coding Level of Care Code Est Pt Level 4 (58683) Diagnoses Polymyalgia rheumatica M35.3 Age-related osteoporosis without current pathological fracture M81.0 Osteoporosis type: age-related Presence of current pathological fracture: without current pathological fracture Primary osteoarthritis of right knee M17.11 Osteoarthritis type: primary
[2023-10-23 12:56] VITALS: BP 110/70; PULSE 92; TEMP 36.1; O2SAT 94; BMI 42.0
== END 2023-10-23 13:24 | disposition home or self-care (01) ==
PROVIDERS: PCP Physician Assistant; Visit Provider Student in an Organized Health Care Education/Training Program
DX: M35.3 Polymyalgia rheumatica (principal); M81.0 Age-related osteoporosis without current pathological fracture; M17.11 Unilateral primary osteoarthritis, right knee
CPT/HCPCS: 99214

== ENCOUNTER → 2023-10-23 12:46 | Outpatient (BNVA) | payer MEDICARE, SELFPAY | PROVIDERS: PCP Physician Assistant; Visit Provider Student in an Organized Health Care Education/Training Program | DX: M35.3 Polymyalgia rheumatica (principal); M81.0 Age-related osteoporosis without current pathological fracture; M17.11 Unilateral primary osteoarthritis, right knee | CPT/HCPCS: 96372; 99212; J0897 ==

== ENCOUNTER 2023-10-24 10:48 | Outpatient (AMB) | payer MEDICARE, SELFPAY ==
[2023-10-24 10:59] LABS: Prothrombin Time Whole Bld POC 64.7 sec (11.1-13.5); ~PT, ~INR - Anti Coag Clinic 5.4 (0.9-1.1)
--- NOTE | 2023-10-24 11:10 | MHC.OFFVISCO ---
Intake Intake Visit Reasons: Anticoagulation Allergies latex [LATEX] Allergy (Intermediate, Verified 10/24/23 10:53) RASH GUILLERMO Inhibitors Allergy (Mild, Verified 10/24/23 10:53) cough varenicline [From Chantix] Allergy (Mild, Verified 10/24/23 10:53) hives rosuvastatin Adverse Reaction (Intermediate, Verified 10/24/23 10:53) Muscle Pain barium sulfate Adverse Reaction (Mild, Verified 10/24/23 10:53) burn on face nicotine Adverse Reaction (Mild, Verified 10/24/23 10:53) rash lisinopril Adverse Reaction (Verified 10/24/23 10:53) cough statins Allergy (Severe, Uncoded 10/23/23 12:55) edema seasonal Allergy (Mild, Uncoded 10/23/23 12:55) seasonal allergies watermelon rind Adverse Reaction (Intermediate, Uncoded 10/23/23 12:55) Cough Medication List - Last Reconciled 10/24/23 by Charity Cintron RN albuterol sulfate 2.5 mg (3 mL) inhalation Q4H 30 days albuterol sulfate 90 mcg/actuation 2 inhalations inhalation Q6H PRN 30 days amiodarone 100 mg PO DAILY baclofen 10 mg PO BID 90 days budesonide 0.5 mg (2 mL) inhalation BID [CANNIBIS TAKE 1 GUMMY PO Q AM AND Q PM ] cetirizine (Allergy Relief (cetirizine)) 10 mg PO DAILY denosumab (Prolia) 60 mg subcut [id number] diclofenac sodium 1% (Voltaren Arthritis Pain) 2 grams topical QID diltiazem HCl TAKE 1 CAPSULE BY MOUTH DAILY evolocumab (Repatha SureClick) 140 mg subcut Q2W 90 days furosemide 40 mg PO BID gabapentin 800 mg PO TID losartan 25 mg PO DAILY miscellaneous medical supply (Blood Pressure Cuff) As directed mupirocin 2% 1 appl topical TID nystatin 1 appl topical DAILY 10 days omeprazole 20 mg PO DAILY Oxygen Home Use As directed potassium chloride ER (Klor-Con M) 10 mEq PO DAILY 90 days roflumilast (Daliresp) 500 mcg PO DAILY 90 days roflumilast 500 mcg PO DAILY 90 days warfarin 5 mg See Protocol PO DAILY 90 days Nursing Note PT.STATES THAT SHE HAS HAD LARGE AMTS.OF CELERY OVER THE HOLIDAYS, BUT OTHERWISE NO DIET CHANGES OR OTHER OBVIOUS REASONS FOR ELEVATED INR TODAY. PT.DENIES ANY INCREASED SOB,CP,MED CHANGES OR SX OF BLEEDING. WILL HOLD WARFARIN 2 DAYS AND FOLLOW-UP HERE ON 10/29/23. PT.REFUSES LAB VENIPUNCTURE. PT.IS CAUTIONED RE INCREASED BLEEDING RISK. PCP(ABELARDO) NOTIFIED OF ELEVATED INR AND PLAN OF CARE. 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
== END 2023-10-24 12:23 | disposition home or self-care (01) ==
LOC: HO.ACS 10:48
PROVIDERS: PCP Physician Assistant; Visit Provider Internal Medicine
DX: Z79.01 Long term (current) use of anticoagulants (principal)

== ENCOUNTER → 2023-10-24 10:48 | Outpatient (BNVA) | payer MEDICARE, SELFPAY | PROVIDERS: PCP Physician Assistant; Visit Provider Internal Medicine | DX: I48.0 Paroxysmal atrial fibrillation (principal); Z79.01 Long term (current) use of anticoagulants; Z51.81 Encounter for therapeutic drug level monitoring | CPT/HCPCS: 85610; 99211 ==

== ENCOUNTER → 2023-10-29 13:10 | Outpatient (BNVA) | payer MEDICARE, SELFPAY | PROVIDERS: PCP Physician Assistant; Visit Provider Internal Medicine | DX: I48.0 Paroxysmal atrial fibrillation (principal); Z79.01 Long term (current) use of anticoagulants; Z51.81 Encounter for therapeutic drug level monitoring | CPT/HCPCS: 85610; 99211 ==

== ENCOUNTER 2023-11-17 10:05 | Outpatient (AMB) | payer MEDICARE, SELFPAY ==
[2023-11-17 10:32] LABS: Prothrombin Time Whole Bld POC 40.5 sec (11.1-13.5); ~PT, ~INR - Anti Coag Clinic 3.4 (0.9-1.1)
--- NOTE | 2023-11-17 10:41 | MHC.OFFVISCO ---
Intake Intake Visit Reasons: Anticoagulation Allergies latex [LATEX] Allergy (Intermediate, Verified 11/17/23 10:26) RASH GUILLERMO Inhibitors Allergy (Mild, Verified 11/17/23 10:26) cough varenicline [From Chantix] Allergy (Mild, Verified 11/17/23 10:26) hives rosuvastatin Adverse Reaction (Intermediate, Verified 11/17/23 10:26) Muscle Pain barium sulfate Adverse Reaction (Mild, Verified 11/17/23 10:26) burn on face nicotine Adverse Reaction (Mild, Verified 11/17/23 10:26) rash lisinopril Adverse Reaction (Verified 11/17/23 10:26) cough statins Allergy (Severe, Uncoded 11/17/23 10:26) edema seasonal Allergy (Mild, Uncoded 11/17/23 10:26) seasonal allergies watermelon rind Adverse Reaction (Intermediate, Uncoded 11/17/23 10:26) Cough Medication List - Last Reconciled 11/17/23 by Lucia Barney RN albuterol sulfate 2.5 mg (3 mL) inhalation Q4H 30 days albuterol sulfate 90 mcg/actuation 2 inhalations inhalation Q6H PRN 30 days amiodarone 100 mg PO DAILY baclofen 10 mg PO BID 90 days budesonide 0.5 mg (2 mL) inhalation BID [CANNIBIS TAKE 1 GUMMY PO Q AM AND Q PM ] cetirizine (Allergy Relief (cetirizine)) 10 mg PO DAILY denosumab (Prolia) 60 mg subcut [id number] diclofenac sodium 1% (Voltaren Arthritis Pain) 2 grams topical QID diltiazem HCl TAKE 1 CAPSULE BY MOUTH DAILY evolocumab (Repatha SureClick) 140 mg subcut Q2W 90 days furosemide 40 mg PO BID gabapentin 800 mg PO TID losartan 25 mg PO DAILY miscellaneous medical supply (Blood Pressure Cuff) As directed mupirocin 2% 1 appl topical TID nystatin 1 appl topical DAILY 10 days omeprazole 20 mg PO DAILY Oxygen Home Use As directed potassium chloride ER (Klor-Con M) 10 mEq PO DAILY 90 days roflumilast (Daliresp) 500 mcg PO DAILY 90 days roflumilast 500 mcg PO DAILY 90 days warfarin 5 mg See Protocol PO DAILY 90 days Nursing Note Amb to ACSwearing cont O2, using walker, feeling ok Medications and supplements reviewed, sts had her covid booster and RSV vaccine after last visit No other changes in health, diet, medications, or supplements Denies any unusual signs and symptoms of bruising, bleeding Denies any new Chest pain, SOB, or clotting INR: 3.4 above therapeutic range Nutritional guidance given: try to get dark leafy greens in today then balance greens and reds in diet Dose: take usual 2.5mg today decrease dose tomorrow to 2.5mg then resume usual dosing on Friday;5mg x 1 day and 2.5mg x 6 days F/U INR: 10 days Patient verbalizes understanding of instructions given with accurate read back/ teach back of dosing Anti-Coag Initial Assessment Social Hx Patient Tobacco Use Status: Former Tobacco user Quit Date: 09/20/2019 alcohol intake: current Alcohol intake frequency: holidays/special occasions only Questionnaires HAS-BLED Does the patient had uncontrolled Hypertension?: No Does the patient have renal disease?: No Does the patient have liver disease?: No Does the patient have a history of stroke?: No Has the patient had major bleeding or predisposition to bleeding?: No Does the patient have labile INRs?: Yes Is the patient over 65 years of age?: Yes Is the patient on medications that gives them a predisposition to bleeding?: Yes Does the patient use alcohol?: Yes HAS-BLED Score: 4 CHADSVASC Age: 66-74 Gender: Female Does the patient have a history of CHF?: Yes Does the patient have a history of Hypertension?: Yes Does the patient have a history of Stroke/TIA/Thromboembolism?: No Does the patient have a history of Vascular Disease (prior [place], PAD or aortic plaque)?: No Does the patient have a history of Diabetes?: No CHADS VACS Score: 4 Gray Prediction Score Rsk VTE Active Cancer: No Previous VTE, excluding superficial vein thrombosis: No Reduced mobility: Yes Already known Thrombophilic Condition: Yes With-in last month Trauma and/or Surgery: No Elderly 70 year or older: Yes Heart and/or Respiratory Failure: Yes Acute Myocardial infarction and/or Ischemic Stroke: No Acute Infection and/or Rheumatologic Disorder: No Obesity (BMI 30 or greater): Yes Ongoing Hormonal Treatment: No Score: 9 Gray Score less than 4; Low Risk of VTE Gray Score 4 or greater; High Risk of VTE Coding Level of Care Code Est Patient Level 1 Diagnoses Current use of anticoagulant therapy Z79.01 Time Spent (min) 15 Assessment & Plan Assessment & Plan (1) Current use of anticoagulant therapy: Code(s): Z79.01 - group home (current) use of anticoagulants Category: Medical
== END 2023-11-17 11:24 | disposition home or self-care (01) ==
LOC: HO.ACS 10:05
PROVIDERS: PCP Physician Assistant; Visit Provider Internal Medicine
DX: Z79.01 Long term (current) use of anticoagulants (principal)

== ENCOUNTER → 2023-11-17 10:05 | Outpatient (BNVA) | payer MEDICARE, SELFPAY | PROVIDERS: PCP Physician Assistant; Visit Provider Internal Medicine | DX: I48.0 Paroxysmal atrial fibrillation (principal); Z79.01 Long term (current) use of anticoagulants; Z51.81 Encounter for therapeutic drug level monitoring | CPT/HCPCS: 85610; 99211 ==

== ENCOUNTER 2023-11-26 10:28 | Outpatient (AMB) | payer MEDICARE, SELFPAY ==
[2023-11-26 10:50] LABS: Prothrombin Time Whole Bld POC 38.4 sec (11.1-13.5); ~PT, ~INR - Anti Coag Clinic 3.2 (0.9-1.1)
--- NOTE | 2023-11-26 11:07 | MHC.OFFVISCO ---
Intake Intake Visit Reasons: Anticoagulation Allergies latex [LATEX] Allergy (Intermediate, Verified 11/17/23 10:26) RASH GUILLERMO Inhibitors Allergy (Mild, Verified 11/17/23 10:26) cough varenicline [From Chantix] Allergy (Mild, Verified 11/17/23 10:26) hives rosuvastatin Adverse Reaction (Intermediate, Verified 11/17/23 10:26) Muscle Pain barium sulfate Adverse Reaction (Mild, Verified 11/17/23 10:26) burn on face nicotine Adverse Reaction (Mild, Verified 11/17/23 10:26) rash lisinopril Adverse Reaction (Verified 11/17/23 10:26) cough statins Allergy (Severe, Uncoded 11/17/23 10:26) edema seasonal Allergy (Mild, Uncoded 11/17/23 10:26) seasonal allergies watermelon rind Adverse Reaction (Intermediate, Uncoded 11/17/23 10:26) Cough Nursing Note INR 3.2 out of therapeutic range Medications and supplements reviewed- TAKES OCC TYELNOL FOR HEADACHES AND KNEE PAIN' Patient status: FRUSTRATED WITH LABILE INR - PT HAS HAD SEVERAL THINGS WITH HEALTH GOING ON SINCE THE FALL PLUS VACCINES MAYBE TRY ELIQUIS AGAIN OR METER , FINANCIAL FORM FOR ELIQUIS GIVEN, DISCUSSED METER - PT WILL DISCUSS WITH FAMILY ACS WILL KEEP TRYING TO MAINTAIN THERAPEUTIC RANGE Medications or supplements: NO CHANGES Diet: GOOD HAS BEEN EATING SERVERAL SERVINGS OF COOKED GREENS BUT ALSO EATING FOODS THAT CAN RAISE THE INR Denies any signs and symptoms of bleeding or clotting or unusual bruising Bleeding, bruising, clotting discussed Nutritional guidance given: REVIEW FOOD LIST, NEW LIST GIVEN Dose: DECREASE WEEKLY DOSE 2.5MG X 2 DAYS/ 5MG X 5 DAYS F/U INR Date : 2 WEEKS Patient verbalizing understanding of instructions given. 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
== END 2023-11-26 11:20 | disposition home or self-care (01) ==
LOC: HO.ACS 10:28
PROVIDERS: PCP Physician Assistant; Visit Provider Internal Medicine
DX: Z79.01 Long term (current) use of anticoagulants (principal)

== ENCOUNTER → 2023-11-26 10:28 | Outpatient (BNVA) | payer MEDICARE, SELFPAY | PROVIDERS: PCP Physician Assistant; Visit Provider Internal Medicine | DX: I48.0 Paroxysmal atrial fibrillation (principal); Z79.01 Long term (current) use of anticoagulants; Z51.81 Encounter for therapeutic drug level monitoring | CPT/HCPCS: 85610; 99211 ==

== ENCOUNTER 2023-12-10 10:28 | Outpatient (AMB) | payer MEDICARE, SELFPAY ==
[2023-12-10 10:47] LABS: Prothrombin Time Whole Bld POC 23.8 sec (11.1-13.5)
--- NOTE | 2023-12-10 10:48 | MHC.OFFVISCO ---
Intake Intake Visit Reasons: Anticoagulation Allergies latex [LATEX] Allergy (Intermediate, Verified 12/10/23 10:39) RASH GUILLERMO Inhibitors Allergy (Mild, Verified 12/10/23 10:39) cough varenicline [From Chantix] Allergy (Mild, Verified 12/10/23 10:39) hives rosuvastatin Adverse Reaction (Intermediate, Verified 12/10/23 10:39) Muscle Pain barium sulfate Adverse Reaction (Mild, Verified 12/10/23 10:39) burn on face nicotine Adverse Reaction (Mild, Verified 12/10/23 10:39) rash lisinopril Adverse Reaction (Verified 12/10/23 10:39) cough statins Allergy (Severe, Uncoded 12/10/23 10:39) edema seasonal Allergy (Mild, Uncoded 12/10/23 10:39) seasonal allergies watermelon rind Adverse Reaction (Intermediate, Uncoded 12/10/23 10:39) Cough Medication List - Last Reconciled 12/10/23 by Arianne Ritchie RN albuterol sulfate 2.5 mg (3 mL) inhalation Q4H 30 days albuterol sulfate 90 mcg/actuation 2 inhalations inhalation Q6H PRN 30 days amiodarone 100 mg PO DAILY baclofen 10 mg PO BID 90 days budesonide 0.5 mg (2 mL) inhalation BID [CANNIBIS TAKE 1 GUMMY PO Q AM AND Q PM ] cetirizine (Allergy Relief (cetirizine)) 10 mg PO DAILY denosumab (Prolia) 60 mg subcut [id number] diclofenac sodium 1% (Voltaren Arthritis Pain) 2 grams topical QID diltiazem HCl TAKE 1 CAPSULE BY MOUTH DAILY evolocumab (Repatha SureClick) 140 mg subcut Q2W 90 days furosemide 40 mg PO BID gabapentin 800 mg PO TID losartan 25 mg PO DAILY miscellaneous medical supply (Blood Pressure Cuff) As directed mupirocin 2% 1 appl topical TID nystatin 1 appl topical DAILY 10 days omeprazole 20 mg PO DAILY Oxygen Home Use As directed potassium chloride ER (Klor-Con M) 10 mEq PO DAILY 90 days roflumilast (Daliresp) 500 mcg PO DAILY 90 days roflumilast 500 mcg PO DAILY 90 days warfarin 5 mg See Protocol PO DAILY 90 days Nursing Note INR: 2.0- in therapeutic range of 2-3 Medications and supplements reviewed- no changes No changes in health, diet, medications, or supplements, Denies any signs and symptoms of bleeding or bruising or clotting. Bleeding, bruising, clotting discussed Nutritional guidance given - no greens for 2 days, eat a red today pt has been eating a lot of greens due to elev inr recently- food list provided and reviewed Dose: 2.5mg x 2, 5mg x 5 F/U INR: 2 weeks Patient verbalizes understanding of instructions given Anti-Coag Initial Assessment Social Hx Patient Tobacco Use Status: Former Tobacco user Quit Date: 09/20/2019 alcohol intake: current Alcohol intake frequency: holidays/special occasions only Coding Level of Care Code Est Patient Level 1 Diagnoses Current use of anticoagulant therapy Z79.01 Assessment & Plan Assessment & Plan (1) Current use of anticoagulant therapy: Code(s): 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
== END 2023-12-10 11:06 | disposition home or self-care (01) ==
LOC: HO.ACS 10:28
PROVIDERS: PCP Physician Assistant; Visit Provider Internal Medicine
DX: Z79.01 Long term (current) use of anticoagulants (principal)

== ENCOUNTER → 2023-12-10 10:28 | Outpatient (BNVA) | payer MEDICARE, SELFPAY | PROVIDERS: PCP Physician Assistant; Visit Provider Internal Medicine | DX: I48.0 Paroxysmal atrial fibrillation (principal); Z79.01 Long term (current) use of anticoagulants; Z51.81 Encounter for therapeutic drug level monitoring | CPT/HCPCS: 85610; 99211 ==

== ENCOUNTER 2023-12-24 10:04 | Outpatient (AMB) | payer MEDICARE, SELFPAY ==
--- NOTE | 2023-12-24 10:42 | MHC.OFFVISCO ---
Intake Intake Visit Reasons: Anticoagulation Allergies latex [LATEX] Allergy (Intermediate, Verified 12/24/23 10:30) RASH GUILLERMO Inhibitors Allergy (Mild, Verified 12/24/23 10:30) cough varenicline [From Chantix] Allergy (Mild, Verified 12/24/23 10:30) hives rosuvastatin Adverse Reaction (Intermediate, Verified 12/24/23 10:30) Muscle Pain barium sulfate Adverse Reaction (Mild, Verified 12/24/23 10:30) burn on face nicotine Adverse Reaction (Mild, Verified 12/24/23 10:30) rash lisinopril Adverse Reaction (Verified 12/24/23 10:30) cough statins Allergy (Severe, Uncoded 12/24/23 10:30) edema seasonal Allergy (Mild, Uncoded 12/24/23 10:30) seasonal allergies watermelon rind Adverse Reaction (Intermediate, Uncoded 12/24/23 10:30) Cough Medication List - Last Reconciled 12/24/23 by Arianne Ritchie RN albuterol sulfate 2.5 mg (3 mL) inhalation Q4H 30 days albuterol sulfate 90 mcg/actuation 2 inhalations inhalation Q6H PRN 30 days amiodarone 100 mg PO DAILY baclofen 10 mg PO BID 90 days budesonide 0.5 mg (2 mL) inhalation BID [CANNIBIS TAKE 1 GUMMY PO Q AM AND Q PM ] cetirizine (Allergy Relief (cetirizine)) 10 mg PO DAILY denosumab (Prolia) 60 mg subcut [id number] diclofenac sodium 1% (Voltaren Arthritis Pain) 2 grams topical QID PRN diltiazem HCl TAKE 1 CAPSULE BY MOUTH DAILY evolocumab (Repatha SureClick) 140 mg subcut Q2W 90 days furosemide 40 mg PO BID gabapentin 800 mg PO TID losartan 25 mg PO DAILY miscellaneous medical supply (Blood Pressure Cuff) As directed mupirocin 2% 1 appl topical TID nystatin 1 appl topical DAILY 10 days omeprazole 20 mg PO DAILY Oxygen Home Use As directed potassium chloride ER (Klor-Con M) 10 mEq PO DAILY 90 days roflumilast 500 mcg PO DAILY warfarin 5 mg See Protocol PO DAILY 90 days Nursing Note INR 1.5-?? out of therapeutic range of 2-3 pt denies missed dose Medications and supplements reviewed Patient status: pt states gave up etoh for lent- had been having 2 shots per night pt on cont oxygen 2 liters, amb with walker Medications or supplements: states taking lasix 80mg q am instead of 40mg bid and does not have potassium- pcp notified per pt req Diet: same Denies any signs and symptoms of bleeding or clotting or unusual bruising Bleeding, bruising, clotting discussed Nutritional guidance given: no greens for 2-3 days, eat reds to raise Dose: 7.5mg today, 5mg tomm then increase weekly dosing to 5mg x 6, 2.5mg x 1 F/U INR Date : pt unable to come on friday, req tu12/30/23?? Patient verbalizing understanding of instructions given. pcp office dee childers called with low inr/dosing and f/u appt. spoke to skyler at 1059 Anti-Coag Initial Assessment Social Hx Patient Tobacco Use Status: Former Tobacco user Quit Date: 09/20/2019 alcohol intake: current Alcohol intake frequency: holidays/special occasions only Coding Level of Care Code Est Patient Level 1 Diagnoses Current use of anticoagulant therapy Z79.01 Results AMB INR Fingerstick AMB INR Fingerstick 1.5 Last Edit by Arianne Ritchie RN on 12/24/23 10:44 Assessment & Plan Assessment & Plan (1) Current use of anticoagulant therapy: Code(s): Z79.01 - half-way (current) use of anticoagulants Category: Medical Medications: Changed From furosemide 40 mg PO BID 180 tabs 3RF To furosemide pt states taking 80mg daily 40 mg PO BID From roflumilast 500 mcg PO DAILY 90 days 90 tabs 3RF To roflumilast pt states taking qod 500 mcg PO DAILY
[2023-12-24 10:50] LABS: Prothrombin Time Whole Bld POC 17.6 sec (11.1-13.5); ~PT, ~INR - Anti Coag Clinic 1.5 (0.9-1.1)
== END 2023-12-24 11:19 | disposition home or self-care (01) ==
LOC: HO.ACS 10:04
PROVIDERS: PCP Physician Assistant; Visit Provider Internal Medicine
DX: Z79.01 Long term (current) use of anticoagulants (principal)

== ENCOUNTER → 2023-12-24 10:04 | Outpatient (BNVA) | payer MEDICARE, SELFPAY | PROVIDERS: PCP Physician Assistant; Visit Provider Internal Medicine | DX: I48.0 Paroxysmal atrial fibrillation (principal); Z79.01 Long term (current) use of anticoagulants; Z51.81 Encounter for therapeutic drug level monitoring | CPT/HCPCS: 85610; 99211 ==

== ENCOUNTER 2023-12-30 10:14 | Outpatient (AMB) | payer MEDICARE, SELFPAY ==
--- NOTE | 2023-12-30 10:46 | MHC.OFFVISCO ---
Intake Intake Visit Reasons: Anticoagulation Allergies latex [LATEX] Allergy (Intermediate, Verified 12/30/23 10:40) RASH GUILLERMO Inhibitors Allergy (Mild, Verified 12/30/23 10:40) cough varenicline [From Chantix] Allergy (Mild, Verified 12/30/23 10:40) hives rosuvastatin Adverse Reaction (Intermediate, Verified 12/30/23 10:40) Muscle Pain barium sulfate Adverse Reaction (Mild, Verified 12/30/23 10:40) burn on face nicotine Adverse Reaction (Mild, Verified 12/30/23 10:40) rash lisinopril Adverse Reaction (Verified 12/30/23 10:40) cough statins Allergy (Severe, Uncoded 12/30/23 10:40) edema seasonal Allergy (Mild, Uncoded 12/30/23 10:40) seasonal allergies watermelon rind Adverse Reaction (Intermediate, Uncoded 12/30/23 10:40) Cough Medication List - Last Reconciled 12/30/23 by Arianne Ritchie RN albuterol sulfate 2.5 mg (3 mL) inhalation Q4H 30 days albuterol sulfate 90 mcg/actuation 2 inhalations inhalation Q6H PRN 30 days amiodarone 100 mg PO DAILY baclofen 10 mg PO BID 90 days budesonide 0.5 mg (2 mL) inhalation BID [CANNIBIS TAKE 1 GUMMY PO Q AM AND Q PM ] cetirizine (Allergy Relief (cetirizine)) 10 mg PO DAILY denosumab (Prolia) 60 mg subcut [id number] diclofenac sodium 1% (Voltaren Arthritis Pain) 2 grams topical QID PRN diltiazem HCl TAKE 1 CAPSULE BY MOUTH DAILY evolocumab (Repatha SureClick) 140 mg subcut Q2W 90 days furosemide 40 mg PO BID gabapentin 800 mg PO TID losartan 25 mg PO DAILY miscellaneous medical supply (Blood Pressure Cuff) As directed mupirocin 2% 1 appl topical TID nystatin 1 appl topical DAILY 10 days omeprazole 20 mg PO DAILY Oxygen Home Use As directed potassium chloride ER (Klor-Con M) 10 mEq PO DAILY 90 days roflumilast 500 mcg PO DAILY warfarin 5 mg See Protocol PO DAILY 90 days Nursing Note INR: 2.2- in therapeutic range of 2-3 Medications and supplements reviewed- no changes No changes in health, diet, medications, or supplements, Denies any signs and symptoms of bleeding or bruising or clotting. Bleeding, bruising, clotting discussed Nutritional guidance given Dose: increase weekly dosing- 5mg x 6, 2.5mg x 1 will cont with increased weekly dosing. pt states gave up etoh for lent but did have champagne for her anniv and will have etoh for her birthday. she was made aware etoh elev inr, and when she decreases etoh it will lower, if she increases etoh it will raise F/U INR: 2 weeks Patient verbalizes understanding of instructions given pt amb with walker, on cont oxygen Anti-Coag Initial Assessment Social Hx Patient Tobacco Use Status: Former Tobacco user Quit Date: 09/20/2019 alcohol intake: current Alcohol intake frequency: holidays/special occasions only Coding Level of Care Code Est Patient Level 1 Diagnoses Current use of anticoagulant therapy Z79.01 Results AMB INR Fingerstick AMB INR Fingerstick 2.2 Last Edit by Arianne Ritchie RN on 12/30/23 10:48 Assessment & Plan Assessment & Plan (1) Current use of anticoagulant therapy: Code(s): Z79.01 - retirement (current) use of anticoagulants Category: Medical
[2023-12-30 10:50] LABS: Prothrombin Time Whole Bld POC 26.3 sec (11.1-13.5); ~PT, ~INR - Anti Coag Clinic 2.2 (0.9-1.1)
== END 2023-12-30 10:57 | disposition home or self-care (01) ==
LOC: HO.ACS 10:14
PROVIDERS: PCP Physician Assistant; Visit Provider Internal Medicine
DX: Z79.01 Long term (current) use of anticoagulants (principal)

== ENCOUNTER → 2023-12-30 10:14 | Outpatient (BNVA) | payer MEDICARE, SELFPAY | PROVIDERS: PCP Physician Assistant; Visit Provider Internal Medicine | DX: I48.0 Paroxysmal atrial fibrillation (principal); Z79.01 Long term (current) use of anticoagulants; Z51.81 Encounter for therapeutic drug level monitoring | CPT/HCPCS: 85610; 99211 ==

== ENCOUNTER 2024-01-14 10:02 | Outpatient (AMB) | payer MEDICARE, SELFPAY ==
[2024-01-14 10:30] LABS: ~PT, ~INR - Anti Coag Clinic 2.1 (0.9-1.1)
--- NOTE | 2024-01-14 10:36 | MHC.OFFVISCO ---
Intake Intake Visit Reasons: Anticoagulation Allergies latex [LATEX] Allergy (Intermediate, Verified 01/14/24 10:23) RASH GUILLERMO Inhibitors Allergy (Mild, Verified 01/14/24 10:23) cough varenicline [From Chantix] Allergy (Mild, Verified 01/14/24 10:23) hives rosuvastatin Adverse Reaction (Intermediate, Verified 01/14/24 10:23) Muscle Pain barium sulfate Adverse Reaction (Mild, Verified 01/14/24 10:23) burn on face nicotine Adverse Reaction (Mild, Verified 01/14/24 10:23) rash lisinopril Adverse Reaction (Verified 01/14/24 10:23) cough statins Allergy (Severe, Uncoded 12/30/23 10:40) edema seasonal Allergy (Mild, Uncoded 12/30/23 10:40) seasonal allergies watermelon rind Adverse Reaction (Intermediate, Uncoded 12/30/23 10:40) Cough Medication List - Last Reconciled 01/14/24 by Charity Cintron RN albuterol sulfate 2.5 mg (3 mL) inhalation Q4H 30 days albuterol sulfate 90 mcg/actuation 2 inhalations inhalation Q6H PRN 30 days amiodarone 100 mg PO DAILY baclofen 10 mg PO BID 90 days budesonide 0.5 mg (2 mL) inhalation BID [CANNIBIS TAKE 1 GUMMY PO Q AM AND Q PM ] cetirizine (Allergy Relief (cetirizine)) 10 mg PO DAILY denosumab (Prolia) 60 mg subcut [id number] diclofenac sodium 1% (Voltaren Arthritis Pain) 2 grams topical QID PRN diltiazem HCl TAKE 1 CAPSULE BY MOUTH DAILY evolocumab (Repatha SureClick) 140 mg subcut Q2W 90 days furosemide 40 mg PO BID gabapentin 800 mg PO TID losartan 25 mg PO DAILY miscellaneous medical supply (Blood Pressure Cuff) As directed mupirocin 2% 1 appl topical TID nystatin 1 appl topical DAILY 10 days omeprazole 20 mg PO DAILY Oxygen Home Use As directed potassium chloride ER (Klor-Con M) 10 mEq PO DAILY 90 days roflumilast 500 mcg PO DAILY warfarin 5 mg See Protocol PO DAILY 90 days Nursing Note NO CP,SOB,DIET/MED CHANGES,FALLS OR SX OF BLEEDING. CONTINUE PRESENT DOSE AND FOLLOW-UP IN 3 WEEKS. GOOD UNDERSTANDING OF DOSING INSTR. 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
== END 2024-01-14 10:38 | disposition home or self-care (01) ==
LOC: HO.ACS 10:02
PROVIDERS: PCP Physician Assistant; Visit Provider Internal Medicine
DX: Z79.01 Long term (current) use of anticoagulants (principal)

== ENCOUNTER → 2024-01-14 10:02 | Outpatient (BNVA) | payer MEDICARE, SELFPAY | PROVIDERS: PCP Physician Assistant; Visit Provider Internal Medicine | DX: I48.0 Paroxysmal atrial fibrillation (principal); Z79.01 Long term (current) use of anticoagulants; Z51.81 Encounter for therapeutic drug level monitoring | CPT/HCPCS: 85610; 99211 ==

== ENCOUNTER 2024-02-04 10:02 | Outpatient (AMB) | payer MEDICARE, SELFPAY ==
--- NOTE | 2024-02-04 10:19 | MHC.OFFVISCO ---
Intake Intake Visit Reasons: Anticoagulation Allergies latex [LATEX] Allergy (Intermediate, Verified 02/04/24 10:13) RASH GUILLERMO Inhibitors Allergy (Mild, Verified 02/04/24 10:13) cough varenicline [From Chantix] Allergy (Mild, Verified 02/04/24 10:13) hives rosuvastatin Adverse Reaction (Intermediate, Verified 02/04/24 10:13) Muscle Pain barium sulfate Adverse Reaction (Mild, Verified 02/04/24 10:13) burn on face nicotine Adverse Reaction (Mild, Verified 02/04/24 10:13) rash lisinopril Adverse Reaction (Verified 02/04/24 10:13) cough statins Allergy (Severe, Uncoded 02/04/24 10:13) edema seasonal Allergy (Mild, Uncoded 02/04/24 10:13) seasonal allergies watermelon rind Adverse Reaction (Intermediate, Uncoded 02/04/24 10:13) Cough Medication List - Last Reconciled 02/04/24 by Arianne Ritchie RN albuterol sulfate 2.5 mg (3 mL) inhalation Q4H 30 days albuterol sulfate 90 mcg/actuation 2 inhalations inhalation Q6H PRN 30 days amiodarone 100 mg PO DAILY baclofen 10 mg PO BID 90 days budesonide 0.5 mg (2 mL) inhalation BID [CANNIBIS TAKE 1 GUMMY PO Q AM AND Q PM ] cetirizine (Allergy Relief (cetirizine)) 10 mg PO DAILY denosumab (Prolia) 60 mg subcut [id number] diclofenac sodium 1% (Voltaren Arthritis Pain) 2 grams topical QID PRN diltiazem HCl CD TAKE 1 CAPSULE BY MOUTH DAILY evolocumab (Repatha SureClick) 140 mg subcut Q2W 90 days furosemide 40 mg PO BID gabapentin 800 mg PO TID losartan 25 mg PO DAILY miscellaneous medical supply (Blood Pressure Cuff) As directed mupirocin 2% 1 appl topical TID nystatin 1 appl topical DAILY 10 days omeprazole 20 mg PO DAILY Oxygen Home Use As directed potassium chloride ER (Klor-Con M) 10 mEq PO DAILY 90 days roflumilast 500 mcg PO DAILY warfarin 5 mg See Protocol PO DAILY 90 days Nursing Note INR: 2.1- in therapeutic range of 2-3 Medications and supplements reviewed- no changes No changes in health, diet, medications, or supplements, Denies any signs and symptoms of bleeding or bruising or clotting. Bleeding, bruising, clotting discussed Nutritional guidance given Dose: 5mg x 6, 2.5mg x 1 F/U INR: pt req 4 weeks Patient verbalizes understanding of instructions given pt with c.o knee pain, takes occ tylenol. 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
[2024-02-04 10:22] LABS: Prothrombin Time Whole Bld POC 25.2 sec (11.1-13.5); ~PT, ~INR - Anti Coag Clinic 2.1 (0.9-1.1)
== END 2024-02-04 10:29 | disposition home or self-care (01) ==
LOC: HO.ACS 10:02
PROVIDERS: PCP Physician Assistant; Visit Provider Internal Medicine
DX: Z79.01 Long term (current) use of anticoagulants (principal)

== ENCOUNTER → 2024-02-04 10:02 | Outpatient (BNVA) | payer MEDICARE, SELFPAY | PROVIDERS: PCP Physician Assistant; Visit Provider Internal Medicine | DX: I48.0 Paroxysmal atrial fibrillation (principal); Z79.01 Long term (current) use of anticoagulants; Z51.81 Encounter for therapeutic drug level monitoring | CPT/HCPCS: 85610; 99211 ==

== ENCOUNTER 2024-02-16 09:47 | Outpatient (AMB) | payer MEDICARE, SELFPAY ==
--- NOTE | 2024-02-16 09:56 | MHC.OFFVIS ---
Vital Signs 02/16/24 09:59 Height 5 ft 4 in Weight 245 lb BMI 42.0 Pulse 88 Pulse Source Pulse Oximeter Pulse Oximetry (%) 95 Oxygen Delivery Method Room Air Comment 2 Liters Oxygen([facility]) Intake Visit Reasons: Shortness of breath Reel System Operator Required: No Allergies latex [LATEX] Allergy (Intermediate, Verified 02/16/24 10:01) RASH GUILLERMO Inhibitors Allergy (Mild, Verified 02/16/24 10:01) cough varenicline [From Chantix] Allergy (Mild, Verified 02/16/24 10:01) hives rosuvastatin Adverse Reaction (Intermediate, Verified 02/16/24 10:01) Muscle Pain barium sulfate Adverse Reaction (Mild, Verified 02/16/24 10:01) burn on face nicotine Adverse Reaction (Mild, Verified 02/16/24 10:01) rash lisinopril Adverse Reaction (Verified 02/16/24 10:01) cough statins Allergy (Severe, Uncoded 02/16/24 10:01) edema seasonal Allergy (Mild, Uncoded 02/16/24 10:01) seasonal allergies watermelon rind Adverse Reaction (Intermediate, Uncoded 02/16/24 10:01) Cough HPI Comments Details: The patient is a 73-year-old woman with a known history atrial fibrillation on Eliquis in addition to amiodarone 200 mg which she takes half a tab. Apparently she worsening respiratory symptoms was admitted to [facility] with acute on chronic hypercarbic and hypoxic respiratory failure. The patient has done well though now she is on oxygen. She quit smoking. We did look at the CT scan demonstrating some small areas of ground-glass opacities. However very limited. No evidence of any significant interstitial lung disease. However, we still have to monitor closely the use of the amiodarone. She still tapering down from the prednisone. Currently she is on 3 L nasal cannula. She does have some snoring at nighttime. She does have headaches in the morning. Headaches are better at this time. She has underlying daytime drowsiness. Her Jackson score is elevated 24. Sometimes she falls asleep at the dining room table. Patient has not a sleep study. Also, she had an echocardiogram demonstrating moderate pulmonary hypertension does also concerned and could be related to untreated sleep apnea. The patient also had pulmonary function studies demonstrating moderate obstructive ventilatory defect consistent with her degree of COPD. We did go for a walking oximetry. RA saturation 93%, desat to 88% with activity. 97% 2L at rest and maintained 95% on 2 Liters with activity. Pt needs to continue using oxygen. Needs a conserving device trial. 02/19/2022 the patient is here for a pulmonary follow-up visit. Overall the patient has been doing okay. She recently was hospitalized back in November with a COPD exacerbation and bibasilar airspace disease. She was treated with antibiotics. She was also evaluated by Cardiology. She does feel better overall however, she has been requiring her oxygen now 247. Before she just uses as needed and also with activity. She has been noticing some progression of her disease. She has been able to get back to her baseline. We did review her CT scan of the chest demonstrating some atelectatic areas in minimal airspace disease in the bases. The patient is interested in pulmonary rehabilitation. Will have her undergo pulmonary function studies and then follow-up with pulmonary rehabilitation after that. She continues use her PAP therapy. The CPAP therapy continues to be affecting beneficial. She does use it for more than 4 hours a night. She does like her mask. Will go ahead and increase her nebulized therapy to twice a day at least for the next month to see if she has any improving her symptoms. 08/19/2022 the patient is here for a pulmonary follow-up visit. Patient overall has been doing relatively well. She still has she is tolerating CPAP. Developed significant restless leg and muscle spasms the deeper from being with tolerated. She has responded well to baclofen in the past. At this point she can continue the medicine. she continues use her CPAP. The CPAP therapy continues to be affecting beneficial. She does use it more than 4 hours a night. From a respiratory status the patient does have a chronic cough in addition to productive mucus production. Consistent with chronic bronchitis. The patient already has significant comorbidities and she not be on prednisone. Therefore to minimize the prednisone use patient will benefit from starting Daliresp. I will send that to the pharmacy. The patient knows to start slowly to minimize GI adverse effects. We also did review her CT scan she had back in the winter of 2021 demonstrating no evidence of any pulmonary emboli. No pulmonary nodules. The patient did have bilateral mild atelectasis. No additional imaging warranted. 02/19/2023 the patient is here for pulmonary follow-up visit. Still complains of her dyspnea on exertion. Also complains that she still needs to be on the oxygen. She wishes to be off the oxygen a bit more. Unfortunately when she takes it off she does get short of breath very quickly. Usually last about 10 minutes. The patient also been having some chest congestion. She was also start Daliresp which has not started as of yet. I will send her prescription to her mail order in order for to started. She also start slowly to develop tolerance. She does continue to use his CPAP every night. CPAP therapy continues to be affecting beneficial. She has an old machine but is working well and I did suggest that she continue using that machine. Her mask is good fitting. 08/22/2023 the patient is here for a pulmonary follow-up visit. Overall the patient has been doing well from a respiratory status. She continues to have dyspnea on exertion mild to moderate severity. But overall better. She does use respiratory medications well. The medications are getting expensive. I did recommend she can decrease the Daliresp to every other day to see if this provides her with the benefits of the medication but does not cause her to go into the donut hole. The patient also had a CT scan of the abdomen. The lung bases are okay although she does have a right kidney lesion that needs to be further addressed with an MRI. She is concerned about this. In regards to the CPAP the CPAP therapy has been very affecting beneficial. She did come and she talk to our staff here and she found a better fitting mask and her machine is now adjusted and she is tolerating a perfect. Her AHI is not 0.4. She does use more than 4 hours a night in the therapy has been affecting beneficial in she will continue to use it at this time. 02/16/2024 the patient is here for a pulmonary follow-up visit. She complains of worsening dyspnea on exertion. In feeling like she has been getting worse. She has had to increase her oxygen both at nighttime with her CPAP and also during the daytime. She has been using her respiratory therapy. She also has been taking Daliresp. She feels that is helpful. However, it is very expensive. Is okay for her to drop it to every other day in the meantime. the patient states since she has been struggling with her CPAP mask. Sometimes has a air leak issues. Will request a download at this time. In the meantime for her worsening dyspnea will go ahead and request a chest x-ray and PFTs. The patient also be a good candidate for pulmonary rehabilitation at this time. [facility] Medical History COPD (chronic obstructive pulmonary disease) Atelectasis Acute and chronic respiratory failure Aortic aneurysm COPD (chronic obstructive pulmonary disease) Arthralgia NICM (nonischemic cardiomyopathy) Hyperlipidemia Arthropathy of cervical spine Cardiomyopathy Paroxysmal A-fib Abdominal pain Chronic respiratory failure CHRISTIANO on CPAP COPD (chronic obstructive pulmonary disease) Surgical History History of esophagogastroduodenoscopy (EGD) Hx of dilation and curettage Hx of cholecystectomy Hx of hysterectomy History of bilateral cataract extraction Trigger finger of thumb Family History Father CHF (congestive heart failure) PNA (pneumonia) Dementia Diabetes HTN (hypertension) Family history of diabetes mellitus Mother CHF (congestive heart failure) MRSA (methicillin resistant Staphylococcus aureus) Son Afib Son Psoriasis Arthritis Psoriatic arthritis Daughter Hypothyroid Fibromyalgia Brother No problems noted. Brother No problems noted. Sister No problems noted. Social History Household Members: Spouse and Children Household Members Other:: Daughter Amy, and Remy Housing: House Do you presently have visiting nurse or other home services: No Alcohol intake: current Alcohol intake frequency: holidays/special occasions only Alcohol type: beer and hard liquor Patient Tobacco Use Status: Former Tobacco user Quit Date: 09/20/2019 Years Smoked: 50yrs +/- e-Cigarette/Vaping Use: Never Used Second Hand Smoke Exposure: No Substance Use Type: Marijuana Advance Directives Date on File: 10/27/16 service: No Current occupational status: retired Cognitive needs: Yes (walker) Hearing needs: No Vision needs: Yes (glasses) Review of Systems Const Denies chills, Denies fatigue, Denies fever(s), Denies frequent falls, Denies weakness, Denies weight gain and Denies weight loss ENT Denies dizziness Card Denies chest pain, Denies leg edema, Denies lightheadedness, Denies palpitations, Denies dyspnea, Reports dyspnea on exertion, Denies orthopnea and Denies other (Loss of consciousness) Resp Reports cough, Denies dyspnea and Reports dyspnea on exertion GI Denies hematochezia and Denies change in bowel habits Musc Denies abnormal gait, Denies muscle weakness, Denies numbness, Denies radiating pain into limb and Denies tingling Neuro Denies abnormal gait, Denies dizziness, Denies frequent falls, Denies numbness, Denies tingling and Denies weakness Endo Denies fatigue and Denies palpitations Physical Exam Vital Signs: Last Vital Signs Pulse 88 02/16/24 09:59 Pulse Ox 95 02/16/24 09:59 Oxygen Delivery Method Room Air 02/16/24 09:59 BMI result Body Mass Index 42.0 Const General: comfortable and no acute distress Orientation/consciousness: patient oriented x3 HEENT Other: Unremarkable Head: Yes normal to inspection Neck Neck: Yes normal visual inspection Chest Chest palpation & inspection: normal inspection of the chest Resp Auscultation: diminished lung sounds Cardio Palpation: normal PMI Heart sounds: S1 normal heart sound present, S2 normal heart sound present, no gallops, no murmurs and no rubs GI Palpation (GI): Soft to palpation Back/Spine/Pelvis Other: unremarkable Skin General skin exam: no rashes or lesions noted Neuro General: patient oriented x3 Extrem General: Yes normal to inspection Psych Mental Status: mental status grossly normal Assessment & Plan Assessment & Plan (1) COPD (chronic obstructive pulmonary disease): Code(s): J44.9 - Chronic obstructive pulmonary disease, unspecified Category: Medical Qualifiers: COPD type: chronic bronchitis Chronic bronchitis type: simple Qualified Code(s): J41.0 - Simple chronic bronchitis (2) GERD (gastroesophageal reflux disease): Code(s): K21.9 - Gastro-esophageal reflux disease without esophagitis Category: Medical Qualifiers: Esophagitis presence: without esophagitis Qualified Code(s): K21.9 - Gastro-esophageal reflux disease without esophagitis (3) CHRISTIANO on CPAP: Code(s): G47.33 - Obstructive sleep apnea (adult) (pediatric); Z99.89 - Dependence on other enabling machines and devices Category: Medical (4) COPD (chronic obstructive pulmonary disease): Code(s): J44.9 - Chronic obstructive pulmonary disease, unspecified Category: Medical Qualifiers: COPD type: emphysema Emphysema type: centrilobular Qualified Code(s): J43.2 - Centrilobular emphysema (5) Chronic respiratory failure: Code(s): J96.10 - Chronic respiratory failure, unspecified whether with hypoxia or hypercapnia Category: Medical Qualifiers: Respiratory failure complication: hypoxia Qualified Code(s): J96.11 - Chronic respiratory failure with hypoxia (6) COPD (chronic obstructive pulmonary disease): Code(s): J44.9 - Chronic obstructive pulmonary disease, unspecified Category: Medical Qualifiers: COPD type: emphysema Emphysema type: centrilobular Qualified Code(s): J43.2 - Centrilobular emphysema Plan continuie budesonide to once day Daliresp 500mcg daily (ok every other day) continue DuoNeb twice a day and as needed WILLIAN as needed continue allergy medicine: zyrtec reflux diet continue PPI continue CPAP therapy. requesting download CXR PFTs start pulmonary rehab F/U 3-4 months Orders: Orders PFT pulmonary function test Today J43.2 - Centrilobular emphysema XR chest 2V Today J43.2 - Centrilobular emphysema Pulmonary Rehab Today J43.2 - Centrilobular emphysema
[2024-02-16 09:59] VITALS: PULSE 88; O2SAT 95; BMI 42.0
== END 2024-02-16 10:17 | disposition home or self-care (01) ==
LOC: HO.HPS 09:50
PROVIDERS: PCP Physician Assistant; Visit Provider Hospitalist
DX: J41.0 Simple chronic bronchitis (principal); K21.9 Gastro-esophageal reflux disease without esophagitis; G47.33 Obstructive sleep apnea (adult) (pediatric); Z99.89 Dependence on other enabling machines and devices; J96.11 Chronic respiratory failure with hypoxia; J43.2 Centrilobular emphysema
CPT/HCPCS: 99214

== ENCOUNTER → 2024-02-16 09:50 | Outpatient (BNVA) | payer MEDICARE, SELFPAY | PROVIDERS: PCP Physician Assistant; Visit Provider Hospitalist | DX: J44.9 Chronic obstructive pulmonary disease, unspecified (principal); J96.10 Chronic respiratory failure, unspecified whether with hypoxia or hypercapnia; G47.33 Obstructive sleep apnea (adult) (pediatric); K21.9 Gastro-esophageal reflux disease without esophagitis | CPT/HCPCS: 99212 ==

== ENCOUNTER 2024-02-19 13:47 | Outpatient (REF) | payer MEDICARE, SELFPAY ==
[2024-02-19 09:17] VITALS: PULSE 92; RESP 16; O2SAT 95
--- NOTE | 2024-02-19 16:04 | PFT_ITS ---
Indication: COPD Spirometry [FEV1 to FVC 58%; FEV1 1.12 L; FVC 1.94 L. this is a significant response to bronchodilators noted. Maximum voluntary ventilation 50% predicted] Lung Volumes [Total lung capacity 88% predicted; residual volume 122% predicted] Diffusion Capacity [DLCO 61% predicted] Comparisons [None] Interpretation [There is a obstructive ventilatory defect consistent with moderate to severe COPD. There is significant response to bronchodilators noted. Moderate decrease in the maximum voluntary ventilation secondary to likely deconditioning in addition to worsening dynamic inspiratory capacity. Lung volumes demonstrate a trend of air trapping due to the COPD. There is also moderate diffusion impairment secondary to the COPD. Clinical correlation warranted.] MTDD
== END 2024-02-19 13:48 | disposition home or self-care (01) ==
LOC: HO.RESP 13:47
PROVIDERS: PCP Physician Assistant; Visit Provider Hospitalist
DX: J43.2 Centrilobular emphysema (principal)
CPT/HCPCS: 94010; 94640; 94727; 94729

== ENCOUNTER → 2024-02-19 16:04 | Outpatient (BNV) | payer MEDICARE, SELFPAY | PROVIDERS: PCP Physician Assistant; Visit Provider Hospitalist | DX: J43.2 Centrilobular emphysema (principal) | CPT/HCPCS: 94060; 94727; 94729 ==

== ENCOUNTER → 2024-03-09 10:14 | Outpatient (BNVA) | payer MEDICARE, SELFPAY | PROVIDERS: PCP Physician Assistant; Visit Provider Student in an Organized Health Care Education/Training Program | DX: M75.22 Bicipital tendinitis, left shoulder (principal); M35.3 Polymyalgia rheumatica; M81.0 Age-related osteoporosis without current pathological fracture | CPT/HCPCS: 20550; 99212; J3301 ==

== ENCOUNTER 2024-03-10 10:03 | Outpatient (AMB) | payer MEDICARE, SELFPAY ==
[2024-03-10 10:10] LABS: Prothrombin Time Whole Bld POC 23.4 sec (11.1-13.5)
--- NOTE | 2024-03-10 10:16 | MHC.OFFVISCO ---
Intake Intake Visit Reasons: Anticoagulation Allergies latex [LATEX] Allergy (Intermediate, Verified 03/10/24 10:04) RASH GUILLERMO Inhibitors Allergy (Mild, Verified 03/10/24 10:04) cough varenicline [From Chantix] Allergy (Mild, Verified 03/10/24 10:04) hives rosuvastatin Adverse Reaction (Intermediate, Verified 03/10/24 10:04) Muscle Pain barium sulfate Adverse Reaction (Mild, Verified 03/10/24 10:04) burn on face nicotine Adverse Reaction (Mild, Verified 03/10/24 10:04) rash lisinopril Adverse Reaction (Verified 03/10/24 10:04) cough statins Allergy (Severe, Uncoded 03/09/24 10:37) edema seasonal Allergy (Mild, Uncoded 03/09/24 10:37) seasonal allergies watermelon rind Adverse Reaction (Intermediate, Uncoded 03/09/24 10:37) Cough Medication List - Last Reconciled 03/10/24 by Charity Cintron RN albuterol sulfate 2.5 mg (3 mL) inhalation Q4H 30 days albuterol sulfate 90 mcg/actuation 2 inhalations inhalation Q6H PRN 30 days amiodarone 100 mg PO DAILY baclofen 10 mg PO BID 90 days budesonide 0.5 mg (2 mL) inhalation BID [CANNIBIS TAKE 1 GUMMY PO Q AM AND Q PM ] cetirizine (Allergy Relief (cetirizine)) 10 mg PO DAILY denosumab (Prolia) 60 mg subcut [id number] diclofenac sodium 1% (Voltaren Arthritis Pain) 2 grams topical QID PRN diltiazem HCl CD TAKE 1 CAPSULE BY MOUTH DAILY evolocumab (Repatha SureClick) 140 mg subcut Q2W 90 days furosemide 40 mg PO BID gabapentin 800 mg PO TID losartan 25 mg PO DAILY miscellaneous medical supply (Blood Pressure Cuff) As directed mupirocin 2% 1 appl topical TID nebulizers As directed nystatin 1 appl topical DAILY 10 days omeprazole 20 mg PO DAILY Oxygen Home Use As directed potassium chloride ER (Klor-Con M) 10 mEq PO DAILY 90 days roflumilast 500 mcg PO DAILY warfarin 5 mg See Protocol PO DAILY 90 days Nursing Note PT.HAD CORTISONE INJ.(L) SHOULDER YESTERDAY WITH SOME RELIEF OF PAIN. NO CP,SOB OR SX OF BLEEDING. CONTINUE PRESENT DOSE AND FOLLOW-UP IN 4 WEEKS. GOOD UNDERSTANDING OF DOSING INSTR. Anti-Coag Initial Assessment Social Hx Patient Tobacco Use Status: Former Tobacco user Quit Date: 09/20/2019 alcohol intake: current Alcohol intake frequency: holidays/special occasions only Coding Level of Care Code Est Patient Level 1 Diagnoses Current use of anticoagulant therapy Z79.01 Assessment & Plan Assessment & Plan (1) Current use of anticoagulant therapy: Code(s): Z79.01 - combiner (current) use of anticoagulants Category: Medical
== END 2024-03-10 10:22 | disposition home or self-care (01) ==
LOC: HO.ACS 10:03
PROVIDERS: PCP Physician Assistant; Visit Provider Internal Medicine
DX: Z79.01 Long term (current) use of anticoagulants (principal)

== ENCOUNTER → 2024-03-10 10:03 | Outpatient (BNVA) | payer MEDICARE, SELFPAY | PROVIDERS: PCP Physician Assistant; Visit Provider Internal Medicine | DX: I48.0 Paroxysmal atrial fibrillation (principal); Z51.81 Encounter for therapeutic drug level monitoring; Z79.01 Long term (current) use of anticoagulants | CPT/HCPCS: 85610; 99211 ==

== ENCOUNTER 2024-04-07 10:03 | Outpatient (AMB) | payer MEDICARE, SELFPAY ==
[2024-04-07 10:15] LABS: Prothrombin Time Whole Bld POC 24.7 sec (11.1-13.5); ~PT, ~INR - Anti Coag Clinic 2.1 (0.9-1.1)
--- NOTE | 2024-04-07 10:15 | MHC.OFFVISCO ---
Intake Intake Visit Reasons: Anticoagulation Allergies latex [LATEX] Allergy (Intermediate, Verified 04/07/24 10:09) RASH GUILLERMO Inhibitors Allergy (Mild, Verified 04/07/24 10:09) cough varenicline [From Chantix] Allergy (Mild, Verified 04/07/24 10:09) hives rosuvastatin Adverse Reaction (Intermediate, Verified 04/07/24 10:09) Muscle Pain barium sulfate Adverse Reaction (Mild, Verified 04/07/24 10:09) burn on face nicotine Adverse Reaction (Mild, Verified 04/07/24 10:09) rash lisinopril Adverse Reaction (Verified 04/07/24 10:09) cough statins Allergy (Severe, Uncoded 04/07/24 10:09) edema seasonal Allergy (Mild, Uncoded 04/07/24 10:09) seasonal allergies watermelon rind Adverse Reaction (Intermediate, Uncoded 04/07/24 10:09) Cough Medication List - Last Reconciled 04/07/24 by Arianne Ritchie RN albuterol sulfate 2.5 mg (3 mL) inhalation Q4H 30 days albuterol sulfate 90 mcg/actuation 2 inhalations inhalation Q6H PRN 30 days amiodarone 100 mg PO DAILY baclofen 10 mg PO BID 90 days budesonide 0.5 mg (2 mL) inhalation BID [CANNIBIS TAKE 1 GUMMY PO Q AM AND Q PM ] cetirizine (Allergy Relief (cetirizine)) 10 mg PO DAILY denosumab (Prolia) 60 mg subcut [id number] diclofenac sodium 1% (Voltaren Arthritis Pain) 2 grams topical QID PRN diltiazem HCl CD TAKE 1 CAPSULE BY MOUTH DAILY evolocumab (Repatha SureClick) 140 mg subcut Q2W 90 days furosemide 40 mg PO BID gabapentin 800 mg PO TID losartan 25 mg PO DAILY miscellaneous medical supply (Blood Pressure Cuff) As directed mupirocin 2% 1 appl topical TID nebulizers As directed nystatin 1 appl topical DAILY 10 days omeprazole 20 mg PO DAILY Oxygen Home Use As directed potassium chloride ER (Klor-Con M) 10 mEq PO DAILY 90 days roflumilast 500 mcg PO DAILY warfarin 5 mg See Protocol PO DAILY 90 days Nursing Note INR: 2.1- in therapeutic range of 2-3 Medications and supplements reviewed- no changes No changes in health, diet, medications, or supplements, Denies any signs and symptoms of bleeding or bruising or clotting. 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
== END 2024-04-07 10:22 | disposition home or self-care (01) ==
LOC: HO.ACS 10:03
PROVIDERS: PCP Physician Assistant; Visit Provider Internal Medicine
DX: Z79.01 Long term (current) use of anticoagulants (principal)

== ENCOUNTER → 2024-04-07 10:03 | Outpatient (BNVA) | payer MEDICARE, SELFPAY | PROVIDERS: PCP Physician Assistant; Visit Provider Internal Medicine | DX: I48.0 Paroxysmal atrial fibrillation (principal); Z79.01 Long term (current) use of anticoagulants; Z51.81 Encounter for therapeutic drug level monitoring | CPT/HCPCS: 85610; 99211 ==

== ENCOUNTER 2024-04-20 10:30 | Outpatient (REF) | payer MEDICARE, SELFPAY ==
[2024-04-20 13:53] LABS: Alanine Aminotransferase 19 U/L (0-31); Albumin Level 3.7 g/dL (3.5-5.0); Alkaline Phosphatase 93 U/L (39-117); Anion Gap 17 (12-20); Aspartate Amino Transferase 16 U/L (5-31); Bilirubin Total 0.5 mg/dL (0.0-1.0); Blood Urea Nitrogen 23 mg/dL (9-16); Carbon Dioxide 30 mmol/L (22-29); Chloride 101 mmol/L (96-108); Estimated Glomerular Filt Rate 42; Glucose Random 134 mg/dL (60-115); Potassium 3.8 mmol/L (3.3-5.1); Sodium 144 mmol/L (135-145)
[2024-04-24 15:54] LABS: Vitamin D 25-OH, D2 <4 ng/mL; Vitamin D 25-OH, D3 34 ng/mL; Vitamin D 25-OH, Total 34 ng/mL (30-100)
== END 2024-04-20 10:31 | disposition home or self-care (01) ==
LOC: HO.HMGCLDS 10:30
PROVIDERS: PCP Physician Assistant; Visit Provider Student in an Organized Health Care Education/Training Program
DX: M81.0 Age-related osteoporosis without current pathological fracture (principal); E55.9 Vitamin D deficiency, unspecified
CPT/HCPCS: 36415; 80053; 82306

== ENCOUNTER 2024-04-22 10:08 | Outpatient (AMB) | payer MEDICARE, SELFPAY ==
--- NOTE | 2024-04-22 10:13 | A.OFFVIS_ITS ---
Vital Signs 04/22/24 10:17 Height 5 ft 4 in Weight 246 lb 0.574 oz BMI 42.2 BP 124/64 Blood Pressure Location Rt brachial Position Sitting Pulse 83 Pulse Source Pulse Oximeter Pulse Oximetry (%) 97 Oxygen Delivery Method Room Air Intake Visit Reasons: Osteoporosis/prolia/cm Intake Note: Patient presents for Osteoporosis. Prolia injection given today. Lot #[id number], exp. 06/26/2026. Allergies latex [LATEX] Allergy (Intermediate, Verified 04/22/24 10:19) RASH GUILLERMO Inhibitors Allergy (Mild, Verified 04/22/24 10:19) cough varenicline [From Chantix] Allergy (Mild, Verified 04/22/24 10:19) hives rosuvastatin Adverse Reaction (Intermediate, Verified 04/22/24 10:19) Muscle Pain barium sulfate Adverse Reaction (Mild, Verified 04/22/24 10:19) burn on face nicotine Adverse Reaction (Mild, Verified 04/22/24 10:19) rash lisinopril Adverse Reaction (Verified 04/22/24 10:19) cough statins Allergy (Severe, Uncoded 04/07/24 10:09) edema seasonal Allergy (Mild, Uncoded 04/07/24 10:09) seasonal allergies watermelon rind Adverse Reaction (Intermediate, Uncoded 04/07/24 10:09) Cough Medication List - Last Reconciled 04/22/24 by Dru Larios MD albuterol sulfate 2.5 mg (3 mL) inhalation Q4H 30 days albuterol sulfate 90 mcg/actuation 2 inhalations inhalation Q6H PRN 30 days amiodarone 100 mg PO DAILY baclofen 10 mg PO BID 90 days budesonide 0.5 mg (2 mL) inhalation BID [CANNIBIS TAKE 1 GUMMY PO Q AM AND Q PM ] cetirizine (Allergy Relief (cetirizine)) 10 mg PO DAILY denosumab (Prolia) 60 mg subcut [id number] diclofenac sodium 1% (Voltaren Arthritis Pain) 2 grams topical QID PRN diltiazem HCl CD TAKE 1 CAPSULE BY MOUTH DAILY evolocumab (Repatha SureClick) 140 mg subcut Q2W 90 days furosemide 40 mg PO BID gabapentin 800 mg PO TID losartan 25 mg PO DAILY miscellaneous medical supply (Blood Pressure Cuff) As directed mupirocin 2% 1 appl topical TID nebulizers As directed nystatin 1 appl topical DAILY 10 days omeprazole 20 mg PO DAILY Oxygen Home Use As directed potassium chloride ER (Klor-Con M) 10 mEq PO DAILY 90 days roflumilast 500 mcg PO DAILY warfarin 5 mg See Protocol PO DAILY 90 days HPI Comments Details: This is a 72-year-old female with osteoporosis who presents for follow-up. She is also here for her Prolia injection. Last month patient presented urgently for abrupt onset of left shoulder pain and swelling. Suspected bicipital tendonitis and injected the area with Kenalog. She states that after 2 days it started working and now she is able to move her shoulder normally. She continues to have intermittent episodes of joint pain. Currently her main complaint is frequent generalized muscle spasms. Stated that she has been evaluated by multiple physicians and no diagnosis could be reached [facility] Medical History COPD (chronic obstructive pulmonary disease) Atelectasis Acute and chronic respiratory failure Aortic aneurysm COPD (chronic obstructive pulmonary disease) Arthralgia NICM (nonischemic cardiomyopathy) Hyperlipidemia Arthropathy of cervical spine Cardiomyopathy Paroxysmal A-fib Abdominal pain Chronic respiratory failure CHRISTIANO on CPAP COPD (chronic obstructive pulmonary disease) Surgical History History of esophagogastroduodenoscopy (EGD) Hx of dilation and curettage Hx of cholecystectomy Hx of hysterectomy History of bilateral cataract extraction Trigger finger of thumb Family History Father CHF (congestive heart failure) PNA (pneumonia) Dementia Diabetes HTN (hypertension) Family history of diabetes mellitus Mother CHF (congestive heart failure) MRSA (methicillin resistant Staphylococcus aureus) Son Afib Son Psoriasis Arthritis Psoriatic arthritis Daughter Hypothyroid Fibromyalgia Brother No problems noted. Brother No problems noted. Sister No problems noted. Social History Household Members: Spouse and Children Household Members Other:: Daughter Amy, and Remy Housing: House Do you presently have visiting nurse or other home services: No Alcohol intake: current Alcohol intake frequency: holidays/special occasions only Alcohol type: beer and hard liquor Patient Tobacco Use Status: Former Tobacco user Years Smoked: 50yrs +/- e-Cigarette/Vaping Use: Never Used Second Hand Smoke Exposure: No Substance Use Type: Marijuana Advance Directives Date on File: 10/27/16 service: No Current occupational status: retired Cognitive needs: Yes (walker) Hearing needs: No Vision needs: Yes (glasses) Review of Systems Musc Details: Muscle spasms Reports myalgias and Reports arthralgias Physical Exam Vital Signs: Last Vital Signs Pulse 83 04/22/24 10:17 BP 124/64 04/22/24 10:17 Pulse Ox 97 04/22/24 10:17 Oxygen Delivery Method Room Air 04/22/24 10:17 BMI result Body Mass Index 42.2 Const General: cooperative Nutritional Appearance: obese morbidly obese Orientation/consciousness: patient oriented x3 Limitations: ambulation with walker HEENT Head: Yes normocephalic and Yes atraumatic Resp Other: On 2 L of oxygen by nasal cannula Effort & Inspection: normal respiratory effort and able to speak in complete sentences Cardio Rate: regular rate Neuro General: patient oriented x3 Extrem Other: No active synovitis today Intermittent generalized muscle spasms Results Reviewed Results Reviewed: Laboratory Tests 08/16/22 08/16/22 09/14/22 10:02 10:03 15:07 WBC 9.2 RBC 4.28 Hgb 13.2 Hct 41.1 Plt Count 311 Absolute Neuts (auto) 5.8 ESR 75 H Sodium Potassium BUN Creatinine Random Glucose Calcium AST ALT C-Reactive Protein 2.16 H 25-OH Vitamin D Total TSH 11/27/22 11/27/22 08:40 08:40 WBC RBC Hgb Hct Plt Count Absolute Neuts (auto) ESR Sodium 142 Potassium 3.4 D BUN 21 H Creatinine 1.15 Random Glucose 119 H Calcium 9.0 D AST 15 ALT 12 C-Reactive Protein 25-OH Vitamin D Total 24.3 TSH 2.12 Date of Service: 01/03/21 Procedure(s): XR DEXA axial skeleton Accession Number(s): [id number] EXAMINATION: BONE DENSITOMETRY CLINICAL INDICATION: Long-term, current, use of systemic steroids. COMPARISON: Baseline BD dated 07/26/2016. TECHNIQUE: Using a [employer] DXA System (software version: 13.1) manufactured by [employer], dual-energy x-ray absorptiometry was performed of the lumbar spine and left hip. The images are of good technical quality. Summary results are attached. FINDINGS: AP SPINE L1-L4: Current: BMD 0.789 g/cm2, Z-score -2.7, T-score -3.3, osteoporosis, 3.8% decrease from baseline (<5% change is not significant). Baseline: BMD 0.820 g/cm2. LEFT FEMUR, NECK: Current: BMD 0.684 g/cm2, Z-score -1.5, T-score -2.5, osteoporosis. Baseline: BMD 0.745 g/cm2. LEFT FEMUR, TOTAL: Current: BMD 0.764 g/cm2, Z-score -1.2, T-score -1.9, osteopenia, 4.4% decrease from baseline (<5% change is not significant). Baseline: BMD 0.799 g/cm2. IDENTIFIED RISK FACTORS: Low calcium intake, family history (parental hip fracture), glucocorticoids (chronic), menopause. HISTORY OF FRACTURE: None listed. MEDICATIONS: None listed. MM/XR DEXA axial skeleton IMPRESSION: 1. DIAGNOSIS: Osteoporosis based on the lowest T-score value of -3.3 in the lumbar spine applying World Health Organization criteria.? ? 2. 10-YEAR FRACTURE RISK PREDICTION, FRAX: Major osteoporotic fracture (clinical spine, forearm, hip or shoulder) 21.9%. Hip fracture 6.7%. Assessment & Plan Assessment & Plan (1) Osteoporosis: Comment: Started on Prolia 03/15/2021 - present Code(s): M81.0 - Age-related osteoporosis without current pathological fracture Category: Medical Qualifiers: Osteoporosis type: age-related Presence of current pathological fracture: without current pathological fracture Qualified Code(s): M81.0 - Age- related osteoporosis without current pathological fracture Plan: DEXA (01/14) with T-score -3.3 in lumbar spine.? Patient previously was on alendronate however had GI upset. Trialed on Prolia, tolerating this well. Most recent injection was 09/2023. She received her Prolia injection in clinic today. Will check DEXA scan 08/2024 Blood work before next visit in 6 months (2) Polymyalgia rheumatica: Comment: Diagnosed 01/13/2021-off prednisone since February 2022-no return of PMR symptoms Code(s): M35.3 - Polymyalgia rheumatica Category: Medical Plan: This is a 72-year-old female with history of PMR who presents for follow-up. She has been off prednisone since February of 2022. She has had high inflammatory markers chronically. Patient continues to get intermittent abrupt onset of monoarticular arthritis and sometimes oligoarticular arthritis. Last visit a month ago she presented with abrupt onset of left bicipital tendonitis that was unprovoked, this was treated with a cortisone injection. Her daughter has RA. Patient likely has an underlying seronegative inflammatory arthritis. Numerous DMARDs would be relatively contraindicated due to her multiple comorbidities, i ncreased risk of infection and multiple medication interactions. We will continue to monitor patient. If patient's symptoms worsen, can consider adding a mild DMARDs such as sulfasalazine, hydroxychloroquine or minocycline Plan I spent 26 minutes reviewing patient's chart, evaluating patient, ordering diagnostic workup, counseling patient and documenting in the chart Orders: Orders C Reactive Protein 6 Months M1.90 - Unspecified osteoarthritis, unspecified site Hepatitis A,B,C Profile 6 Months M1.90 - Unspecified osteoarthritis, unspecified site T Spot TB 6 Months Z11.7 - Encounter for testing for latent tuberculosis infection Complete Blood Count Auto Diff 6 Months M19.90 - Unspecified osteoarthritis, unspecified site Comprehensive Met. Panel 6 Months M19.90 - Unspecified osteoarthritis, unspecified site Erythrocyte Sedimentation Rate 6 Months M19.90 - Unspecified osteoarthritis, unspecified site HLA B27 6 Months M45.9 - Ankylosing spondylitis of unspecified sites in spine XR DEXA axial skeleton 08/30/24 M81.0 - Age-related osteoporosis without current pathological fracture AMB Denosumab Injection Practice Supplied Today M81.0 - Age-related osteoporosis without current pathological fracture Medications: New Prolia (denosumab) 60 mg subcut ONCE 1 mL 0RF NS M81.0 - Age-related osteoporosis without current pathological fracture Coding Level of Care Code Est Pt Level 4 (94697) Diagnoses Age-related osteoporosis without current pathological fracture M81.0 Osteoporosis type: age-related Presence of current pathological fracture: without current pathological fracture Polymyalgia rheumatica M35.3
[2024-04-22 10:17] VITALS: BP 124/64; PULSE 83; O2SAT 97; BMI 42.2
== END 2024-04-22 11:00 | disposition home or self-care (01) ==
PROVIDERS: PCP Physician Assistant; Visit Provider Student in an Organized Health Care Education/Training Program
DX: M81.0 Age-related osteoporosis without current pathological fracture (principal); M35.3 Polymyalgia rheumatica
CPT/HCPCS: 99214

== ENCOUNTER → 2024-04-22 10:08 | Outpatient (BNVA) | payer MEDICARE, SELFPAY | PROVIDERS: PCP Physician Assistant; Visit Provider Student in an Organized Health Care Education/Training Program | DX: M81.0 Age-related osteoporosis without current pathological fracture (principal); M35.3 Polymyalgia rheumatica; Z79.620 Long term (current) use of immunosuppressive biologic | CPT/HCPCS: 99212 ==

== ENCOUNTER 2024-04-27 10:03 | Outpatient (AMB) | payer MEDICARE, SELFPAY ==
[2024-04-27 10:17] VITALS: BP 142/72; PULSE 82; O2SAT 96; BMI 42.9
--- NOTE | 2024-04-27 10:17 | A.OFFPC_ITS ---
Vital Signs 04/27/24 10:17 04/27/24 11:02 Height 5 ft 4 in Weight 249 lb 12.54 oz BMI 42.9 BP 142/72 H 150/70 H Blood Pressure Location Lt brachial Position Sitting Pulse 82 Pulse Source Pulse Oximeter Pulse Oximetry (%) 96 Oxygen Delivery Method Nasal Cannula Oxygen Flow Rate 2 Intake Visit Reasons: f/u COPD/ HTN Engineering Instructor Required: No Accompanied by: Self / Same As Patient Allergies latex [LATEX] Allergy (Intermediate, Verified 04/27/24 10:39) RASH GUILLERMO Inhibitors Allergy (Mild, Verified 04/27/24 10:39) cough varenicline [From Chantix] Allergy (Mild, Verified 04/27/24 10:39) hives rosuvastatin Adverse Reaction (Intermediate, Verified 04/27/24 10:39) Muscle Pain barium sulfate Adverse Reaction (Mild, Verified 04/27/24 10:39) burn on face nicotine Adverse Reaction (Mild, Verified 04/27/24 10:39) rash lisinopril Adverse Reaction (Verified 04/27/24 10:39) cough statins Allergy (Severe, Uncoded 04/27/24 10:39) edema seasonal Allergy (Mild, Uncoded 04/27/24 10:39) seasonal allergies watermelon rind Adverse Reaction (Intermediate, Uncoded 04/27/24 10:39) Cough Medication List - Last Reconciled 04/27/24 by Josue Lewis PA-C albuterol sulfate 2.5 mg (3 mL) inhalation Q4H 30 days albuterol sulfate 90 mcg/actuation 2 inhalations inhalation Q6H PRN 30 days amiodarone 100 mg PO DAILY baclofen 10 mg PO BID 90 days budesonide 0.5 mg (2 mL) inhalation BID [CANNIBIS TAKE 1 GUMMY PO Q AM AND Q PM ] cetirizine (Allergy Relief (cetirizine)) 10 mg PO DAILY denosumab (Prolia) 60 mg subcut [id number] diclofenac sodium 1% (Voltaren Arthritis Pain) 2 grams topical QID PRN diltiazem HCl CD TAKE 1 CAPSULE BY MOUTH DAILY evolocumab (Repatha SureClick) 140 mg subcut Q2W 90 days furosemide 40 mg PO BID gabapentin 800 mg PO TID losartan 25 mg PO DAILY miscellaneous medical supply (Blood Pressure Cuff) As directed mupirocin 2% 1 appl topical TID nebulizers As directed nystatin 1 appl topical DAILY 10 days omeprazole 20 mg PO DAILY Oxygen Home Use As directed potassium chloride ER (Klor-Con M) 10 mEq PO DAILY 90 days roflumilast 500 mcg PO DAILY warfarin 5 mg See Protocol PO DAILY 90 days Tobacco use date assessed: 04/27/24 Fall risk assessment: No Falls in past year Last assessed Fall Risk: 04/27/24 Dental Screening Dental Screen Date: 04/27/24 Did you have a dental visit in the last 12 months?: Yes Did you have a dental problem in the last 6 months where you did not have access to dental care?: No Was dental information given to patient?: Patient has dentist HPI f/u COPD/ HTN HPI Details Patient is a 73-year-old female here today for follow-up visit..?? Patient has a past medical history significant for advanced COPD, nonischemic cardiomyopathy, paroxysmal AFib, p.m. or, morbid obesity, hyperlipidemia, CHRISTIANO. .. Concern---> reports over the last few months feeling a sensation of vibration throughout her own body. Unclear if this is related to medication side effects from her albuterol or amiodarone. Will continue to monitor Hyperlipidemia: Is followed by Cardiology, LDL and total cholesterol quite high for her cardiovascular risk. Has not been able to tolerate statin therapy. Patient is started on Repatha by her senior core java developer though was much too expensive to use on a regular basis, has been using Repatha sparingly. PLAN ;Will recheck fasting lipid panel CHRONIC MEDICAL CONDITIONS-----> .. Paroxysmal AFib:? Patient is followed by Cardiology ( Dr. Mcintosh) continues on warfarin without any overt signs of bleeding. // COPD/ CHRISTIANO: Patient is a former smoker,? Continues to require low-dose continuous O2 throughout the day. Patient is followed by radio installer Dr. Corona and continues on budesonide updrafts?. She still does have breathing problems especially on exertion. .. PMR/polyarthralgia: Is followed by Rheumatology .? Unfortunately inflammatory markers still elevated.. Recently received a cortisone injection in her shoulder due to continued shoulder pain. She also continues to complain of bilateral knee pain that hinders her ability to ambulate for long periods of time. Continues to use a walker for ambulation assistance Laboratory Tests 04/22/22 11/27/22 03/28/23 08:49 08:40 07:55 Hgb 12.8 Potassium 3.1 L Creatinine Random Glucose AST 69 H 15 13 Cholesterol 274 LDL Cholesterol, C alc 185 25-OH Vitamin D To rm 07/22/23 09/25/23 04/20/24 14:08 09:51 10:35 Hgb 13.4 Potassium Creatinine 1.24 Random Glucose 134 H AST Cholesterol 260 H LDL Cholesterol, C alc 25-OH Vitamin D To [facility] Medical History COPD (chronic obstructive pulmonary disease) Atelectasis Acute and chronic respiratory failure Aortic aneurysm COPD (chronic obstructive pulmonary disease) Arthralgia NICM (nonischemic cardiomyopathy) Hyperlipidemia Arthropathy of cervical spine Cardiomyopathy Paroxysmal A-fib Abdominal pain Chronic respiratory failure CHRISTIANO on CPAP COPD (chronic obstructive pulmonary disease) Surgical History History of esophagogastroduodenoscopy (EGD) Hx of dilation and curettage Hx of cholecystectomy Hx of hysterectomy History of bilateral cataract extraction Trigger finger of thumb Family History Father CHF (congestive heart failure) PNA (pneumonia) Dementia Diabetes HTN (hypertension) Family history of diabetes mellitus Mother CHF (congestive heart failure) MRSA (methicillin resistant Staphylococcus aureus) Son Afib Son Psoriasis Arthritis Psoriatic arthritis Daughter Hypothyroid Fibromyalgia Brother No problems noted. Brother No problems noted. Sister No problems noted. Social History Household Members: Spouse and Children Household Members Other:: Daughter Amy, and Remy Housing: House Do you presently have visiting nurse or other home services: No Alcohol intake: current Alcohol intake frequency: holidays/special occasions only Alcohol type: beer and hard liquor Patient Tobacco Use Status: Former Tobacco user Years Smoked: 50yrs +/- e-Cigarette/Vaping Use: Never Used Second Hand Smoke Exposure: No Substance Use Type: Marijuana Advance Directives Date on File: 10/27/16 service: No Current occupational status: retired Cognitive needs: Yes (walker) Hearing needs: No Vision needs: Yes (glasses) Questionnaire PHQ-9 Over the last 2 weeks, how often have you been bothered by any of the following problems? 1. Little interest or pleasure in doing things: not at all 2. Feeling down, depressed, or hopeless: not at all 3. Trouble falling or staying asleep, or sleeping too much: not at all 4. Feeling tired or having little energy: not at all 5. Poor appetite or overeating: not at all 6. Feeling bad about yourself - or that you are a failure or have let yourself or your family down: not at all 7. Trouble concentrating on things, such as reading the newspaper or watching television: not at all 8. Moving or speaking so slowly that other people could have noticed. Or the opposite - being so fidgety or restless that you have been moving around a lot more than usual: not at all 9. Thoughts that you would be better off or of hurting yourself in some way: not at all Total score: 0 Depression Screening Interpretation: Negative Depression Screening Done: Yes 41434 - PHQ-9 Billing: Yes Source: Developed by Drs. David Sky, Alanna Wolf, Jarrett Hess and colleagues, with an educational juliocesar from [employer]. Thrive Questionnaire Date Thrive assessed: 04/27/24 I am a: Patient What is your living situation today?: I have a steady place to live Within the past 12 months, did the food you bought not last and you didn't have the money to get more?: Never true Within the past 12 months, did you worry whether your food would run out before you got money to buy more?: Never true Do you have trouble paying for medicines?: No Do you have trouble getting transportation to medical appointments?: No Do you have trouble paying your heating and electricity bill?: No Do you have trouble taking care of your child, family member or friend?: No Do you have trouble with day-to-day activities such as bathing, preparing meals, shopping, managing finances, etc.?: No Are you currently unemployed and looking for a job?: No Are you interested in more education?: No Please select the resources that you would like help with: None Currently or been in a relationship where the following occur: No concerns reported THRIVE Score: 0 AUDIT C Alcohol Use Questionnaire (AUDIT-C) 1. How often do you have a drink containing alcohol?: Never 3. How often do you have six or more drinks on one occasion?: Never Total Score: 0 JOSE-7 AMB Questionnaire JOSE-7 Date JOSE - 7 assessed: 04/27/24 Feeling nervous, anxious, or on edge: 0 = Not at all Not being able to stop or control worryin = Not at all Worrying too much about different things: 0 = Not at all Trouble relaxin = Not at all Being so restless that it is hard to sit still: 0 = Not at all Becoming easily annoyed or irritable: 0 = Not at all Feeling afraid as if something awful might happen: 0 = Not at all Total JOSE-7 score (0-4 normal; 5-9 mild; 10-14 moderate; 15-21 severe): 0 Source: Developed by Drs. David Sky, Alanna Wolf, Jarrett Hess and colleagues, with an educational juliocesar from student[employer]. JOSE-7 Assessment Billing JOSE-7 Assessment Tool: JOSE-7 Assessment 41412 Review of Systems Const Denies headache(s) Eyes Denies loss of vision ENT Denies vertigo, Denies dizziness, Denies headache(s) and Denies sore throat Card Denies chest pain, Denies leg edema and Denies lightheadedness Resp Denies cough, Denies hemoptysis and Denies wheezing GI Denies abdominal pain, Denies melena, Denies constipation, Denies diarrhea and Denies vomiting Denies urinary frequency, Denies dysuria and Denies urinary urgency Musc Denies arthralgias, Denies joint swelling, Denies numbness and Denies tingling Neuro Denies Abnormal speech present, Denies behavioral changes, Denies vertigo, Denies dizziness, Denies headache(s), Denies loss of vision, Denies memory loss, Denies numbness and Denies tingling Psych Denies anxiety, Denies behavioral changes, Denies depression, Denies memory loss and Denies panic attacks Domingo/Lymph Denies easy bleeding and Denies easy bruising Aller/Immun Denies wheezing Physical exam (Primary Care) Vital Signs: Last Vital Signs Pulse 82 04/27/24 10:17 BP 150/70 H 07/02/24 11:02 Pulse Ox 96 04/27/24 10:17 Oxygen Delivery Method Nasal Cannula 04/27/24 10:17 Oxygen Flow Rate 2 04/27/24 10:17 BMI result Body Mass Index 42.9 Tobacco/Smoking Status: Tobacco use Status Tobacco use date assessed 04/27/24 04/27/24 10:29 Patient Tobacco Use Status Former Tobacco user 04/27/24 10:17 e-Cigarette/Vaping Use Never Used 04/27/24 10:17 PHQ-9: PHQ-9 Score PHQ-9: Total score 0 04/27/24 10:40 Depression Screening Interpretation: Negative Thrive Assessment: Date of Thrive Assessment Date Thrive assessed 04/27/24 04/27/24 10:29 Currently or been in a relationship where the following occur: No concerns reported Const General: healthy appearing, no acute distress, alert and awake Nutritional Appearance: well nourished Orientation/consciousness: oriented to person, oriented to place and oriented to time HENMT Ears: TM's normal bilaterally General nose exam: Normal nasal mucous membranes and turbinates present Eyes Conjunctivae: conjunctivae normal Sclerae: sclerae normal Pupils: Equal, round and reactive pupils present Neck Neck: Yes no lymphadenopathy and Yes no JVD Thyroid: Thyroid normal Carotids: no bruits Resp Effort & Inspection: normal respiratory effort and not tachypneic Auscultation: no crackles, no rales, no rhonchi and no wheezes Cardio Rate: regular rate Rhythm: regular rhythm Heart sounds: no murmurs and normal S1 and S2 GI Palpation (GI): Soft to palpation, nontender, no hepatomegaly and no splenomegaly Auscultation: normal bowel sounds Skin General skin exam: no rashes or lesions noted and dry skin Neuro General: oriented to person, oriented to place and oriented to time Cranial nerves: Yes Equal, round and reactive pupils present Speech: No Abnormal speech present Gait exam (Neuro): Normal gait present Motor exam (neuro): no tremor noted Extrem Right upper extremity: full ROM Left upper extremity: full ROM Right lower extremity: full ROM; no edema Left lower extremity: full ROM; no edema Psych Mental Status: mental status grossly normal Speech and movement: Normal speech and movement present Affect: normal affect Attitude: cooperative Thought process: Normal thought process present Assessment and Plan Assessment & Plan (1) HTN (hypertension): Code(s): I10 - Essential (primary) hypertension Qualifiers: Hypertension type: primary hypertension Qualified Code(s): I10 - Essential (primary) hypertension Plan: Patient's blood pressure acceptable today in office, will continue current dose of antihypertensive medication with goal blood pressure to be below 140/90. (2) COPD (chronic obstructive pulmonary disease): Code(s): J44.9 - Chronic obstructive pulmonary disease, unspecified Qualifiers: COPD type: chronic bronchitis Chronic bronchitis type: simple Qualified Code(s): J41.0 - Simple chronic bronchitis Plan: Patient's COPD has been fairly stable with the use albuterol inhaler in new disease modifying drug. Continues to follow pulmonology. Continues on continuous O2 via nasal cannula (3) Paroxysmal A-fib: Code(s): I48.0 - Paroxysmal atrial fibrillation Plan: Patient continues to follow cardiology. Continues to be anticoagulated with warfarin daily and INRs have been stable. Denies any overt signs of bleeding. No recent episodes of palpitations, dizziness or chest discomforts. (4) Morbid obesity: Code(s): E66.01 - Morbid (severe) obesity due to excess calories Plan: Unfortunately BMI remains above 40 and does understand she needs to work on being more physically active and adapt to better eating habits to reduce her weight (5) Osteoarthritis of right knee: Code(s): M17.11 - Unilateral primary osteoarthritis, right knee Qualifiers: Osteoarthritis type: primary Qualified Code(s): M17.11 - Unilateral primary osteoarthritis, right knee Plan: She continues to on fortunately be injury by bilateral knee osteoarthritis worse on the right side. . Not candidate for total knee replacement due to not being able to be put under anesthesia. Advised on nonweightbearing exercises and topical treatments. (6) Hyperlipidemia: Code(s): E78.5 - Hyperlipidemia, unspecified Qualifiers: Hyperlipidemia type: mixed hyperlipidemia Qualified Code(s): E78.2 - Mixed hyperlipidemia Plan: Patient's most recent lipid panel very elevated for her cardiovascular risk. Unable to tolerate any statins due to elevations in liver enzymes and myalgias. Has been started on Repatha by her senior core java developer to which she uses on a limited basis due to expense.. Will recheck fasting lipid panel (7) NICM (nonischemic cardiomyopathy): Code(s): I42.8 - Other cardiomyopathies Plan: Followed by cardiology (8) Cardiomyopathy: Comment: Echo EF 55% 10/2018, mod pul HTN, Code(s): I42.9 - Cardiomyopathy, unspecified Qualifiers: Cardiomyopathy type: unspecified Qualified Code(s): I42.9 - Cardiomyopathy, unspecified Plan: Followed by Cardiology, no heart failure symptoms noted. Orders: Orders Microalbumin, Random (w Creat) Today I10 - Essential (primary) hypertension Complete Blood Count no Diff Today J43.2 - Centrilobular emphysema Lipid Panel Today E78.2 - Mixed hyperlipidemia Patient Instructions: Goal: Blood pressure to be below 140/90, LDL to be below 130 Barriers: Adherence to physical activity and healthy eating habits Coding Level of Care Code Est Pt Level 4 (78684) Complex EM visit Add On G2211 Diagnoses Primary hypertension I10 Hypertension type: primary hypertension Simple chronic bronchitis J41.0 COPD type: chronic bronchitis Chronic bronchitis type: simple Paroxysmal A-fib I48.0 Morbid obesity E66.01 Primary osteoarthritis of right knee M17.11 Osteoarthritis type: primary Mixed hyperlipidemia E78.2 Hyperlipidemia type: mixed hyperlipidemia NICM (nonischemic cardiomyopathy) I42.8 Cardiomyopathy, unspecified type I42.9 Cardiomyopathy type: unspecified Additional Codes JOSE-7 Assessment Billing - JOSE-7 Assessment Tool: JOSE-7 Assessment 44653 ([id number])
[2024-04-27 11:02] VITALS: BP 150/70
== END 2024-04-27 11:12 | disposition home or self-care (01) ==
PROVIDERS: PCP Physician Assistant; Visit Provider Physician Assistant
DX: J41.0 Simple chronic bronchitis (principal); I48.0 Paroxysmal atrial fibrillation; E66.01 Morbid (severe) obesity due to excess calories; Z68.41 Body mass index [BMI] 40.0-44.9, adult; I42.8 Other cardiomyopathies; I42.9 Cardiomyopathy, unspecified; I10 Essential (primary) hypertension; M17.11 Unilateral primary osteoarthritis, right knee; E78.2 Mixed hyperlipidemia
CPT/HCPCS: 99214; G2211

== ENCOUNTER 2024-05-05 13:04 | Outpatient (AMB) | payer MEDICARE, SELFPAY ==
[2024-05-05 13:15] LABS: Prothrombin Time Whole Bld POC 25.3 sec (11.1-13.5); ~PT, ~INR - Anti Coag Clinic 2.1 (0.9-1.1)
--- NOTE | 2024-05-05 13:19 | MHC.OFFVISCO ---
Intake Intake Visit Reasons: Anticoagulation Allergies latex [LATEX] Allergy (Intermediate, Verified 05/05/24 13:09) RASH GUILLERMO Inhibitors Allergy (Mild, Verified 05/05/24 13:09) cough varenicline [From Chantix] Allergy (Mild, Verified 05/05/24 13:09) hives rosuvastatin Adverse Reaction (Intermediate, Verified 05/05/24 13:09) Muscle Pain barium sulfate Adverse Reaction (Mild, Verified 05/05/24 13:09) burn on face nicotine Adverse Reaction (Mild, Verified 05/05/24 13:09) rash lisinopril Adverse Reaction (Verified 05/05/24 13:09) cough statins Allergy (Severe, Uncoded 05/05/24 13:09) edema seasonal Allergy (Mild, Uncoded 05/05/24 13:09) seasonal allergies watermelon rind Adverse Reaction (Intermediate, Uncoded 05/05/24 13:09) Cough Medication List - Last Reconciled 05/05/24 by Thi Heredia RN albuterol sulfate 2.5 mg (3 mL) inhalation Q4H 30 days albuterol sulfate 90 mcg/actuation 2 inhalations inhalation Q6H PRN 30 days amiodarone 100 mg PO DAILY baclofen 10 mg PO BID 90 days budesonide 0.5 mg (2 mL) inhalation BID [CANNIBIS TAKE 1 GUMMY PO Q AM AND Q PM ] cetirizine (Allergy Relief (cetirizine)) 10 mg PO DAILY denosumab (Prolia) 60 mg subcut [id number] diclofenac sodium 1% (Voltaren Arthritis Pain) 2 grams topical QID PRN diltiazem HCl CD TAKE 1 CAPSULE BY MOUTH DAILY evolocumab (Repatha SureClick) 140 mg subcut Q2W 90 days furosemide 40 mg PO BID gabapentin 800 mg PO TID losartan 25 mg PO DAILY miscellaneous medical supply (Blood Pressure Cuff) As directed mupirocin 2% 1 appl topical TID nebulizers As directed nystatin 1 appl topical DAILY 10 days omeprazole 20 mg PO DAILY Oxygen Home Use As directed potassium chloride ER (Klor-Con M) 10 mEq PO DAILY 90 days roflumilast 500 mcg PO DAILY warfarin 5 mg See Protocol PO DAILY 90 days Nursing Note INR: 2.1 in therapeutic range pt has a cardiology appt today- enc her to call [facility] with any health or med changes Medications and supplements reviewed No changes in health, diet, medications, or supplements, Denies any signs and symptoms of bleeding or bruising or clotting. Bleeding, bruising, clotting discussed Nutritional guidance given Dose: keep same dose for now 2.5mg x 1 day/5mg x 6 days F/U INR: 4 weeks unless otherwise indicated Patient verbalizes understanding of instructions given Anti-Coag Initial Assessment Social Hx Patient Tobacco Use Status: Former Tobacco user alcohol intake: current Alcohol intake frequency: holidays/special occasions only Coding Level of Care Code Est Patient Level 1 Diagnoses Current use of anticoagulant therapy Z79.01 Assessment & Plan Assessment & Plan (1) Current use of anticoagulant therapy: Code(s): Z79.01 - senior care (current) use of anticoagulants Category: Medical
== END 2024-05-05 13:21 | disposition home or self-care (01) ==
LOC: HO.ACS 13:04
PROVIDERS: PCP Physician Assistant; Visit Provider Internal Medicine
DX: Z79.01 Long term (current) use of anticoagulants (principal)

== ENCOUNTER → 2024-05-05 13:04 | Outpatient (BNVA) | payer MEDICARE, SELFPAY | PROVIDERS: PCP Physician Assistant; Visit Provider Internal Medicine | DX: I48.0 Paroxysmal atrial fibrillation (principal); I42.8 Other cardiomyopathies; I25.10 Atherosclerotic heart disease of native coronary artery without angina pectoris; G47.33 Obstructive sleep apnea (adult) (pediatric); Z51.81 Encounter for therapeutic drug level monitoring; Z79.01 Long term (current) use of anticoagulants; Z79.899 Other long term (current) drug therapy; Z99.89 Dependence on other enabling machines and devices | CPT/HCPCS: 85610; 93005; 99211; 99212 ==

== ENCOUNTER 2024-05-05 13:23 | Outpatient (AMB) | payer MEDICARE, SELFPAY ==
--- NOTE | 2024-05-05 13:27 | MHC.OFFVIS ---
Vital Signs 05/05/24 13:30 Height 5 ft 4 in Weight 245 lb 2.464 oz BMI 42.1 BP 114/74 Blood Pressure Location Lt brachial Position Sitting Pulse 83 Intake Visit Reasons: 6 mth fu Grades 1 Thru 6 Visiting Teacher Required: No Accompanied by: Self / Same As Patient Allergies latex [LATEX] Allergy (Intermediate, Verified 05/05/24 13:09) RASH GUILLERMO Inhibitors Allergy (Mild, Verified 05/05/24 13:09) cough varenicline [From Chantix] Allergy (Mild, Verified 05/05/24 13:09) hives rosuvastatin Adverse Reaction (Intermediate, Verified 05/05/24 13:09) Muscle Pain barium sulfate Adverse Reaction (Mild, Verified 05/05/24 13:09) burn on face nicotine Adverse Reaction (Mild, Verified 05/05/24 13:09) rash lisinopril Adverse Reaction (Verified 05/05/24 13:09) cough statins Allergy (Severe, Uncoded 05/05/24 13:09) edema seasonal Allergy (Mild, Uncoded 05/05/24 13:09) seasonal allergies watermelon rind Adverse Reaction (Intermediate, Uncoded 05/05/24 13:09) Cough Medication List - Last Reconciled 05/05/24 by Liang Larios MD albuterol sulfate 2.5 mg (3 mL) inhalation Q4H 30 days albuterol sulfate 90 mcg/actuation 2 inhalations inhalation Q6H PRN 30 days amiodarone 100 mg PO DAILY baclofen 10 mg PO BID 90 days budesonide 0.5 mg (2 mL) inhalation BID [CANNIBIS TAKE 1 GUMMY PO Q AM AND Q PM ] cetirizine (Allergy Relief (cetirizine)) 10 mg PO DAILY denosumab (Prolia) 60 mg subcut [id number] diclofenac sodium 1% (Voltaren Arthritis Pain) 2 grams topical QID PRN diltiazem HCl CD 360 mg PO DAILY evolocumab (Repatha SureVineetick) 140 mg subcut Q2W 90 days furosemide 80 mg PO ONCE gabapentin 800 mg PO BID losartan 25 mg PO DAILY miscellaneous medical supply (Blood Pressure Cuff) As directed mupirocin 2% 1 appl topical TID nebulizers As directed nystatin 1 appl topical DAILY 10 days omeprazole 20 mg PO DAILY Oxygen Home Use As directed potassium chloride ER (Klor-Con M) 10 mEq PO DAILY 90 days roflumilast 500 mcg PO DAILY warfarin 5 mg See Protocol PO DAILY 90 days HPI Comments Details: Huma returns for follow-up regarding atrial fibrillation and cardiomyopathy. She does not have any cardiac symptoms like angina. Chronic shortness of breath related to pulmonary issues. She is also on supplemental oxygen. Since last seen, no new concerns and getting along fine. [facility] Medical History COPD (chronic obstructive pulmonary disease) Atelectasis Acute and chronic respiratory failure Aortic aneurysm COPD (chronic obstructive pulmonary disease) Arthralgia NICM (nonischemic cardiomyopathy) Hyperlipidemia Arthropathy of cervical spine Cardiomyopathy Paroxysmal A-fib Abdominal pain Chronic respiratory failure CHRISTIANO on CPAP COPD (chronic obstructive pulmonary disease) Surgical History History of esophagogastroduodenoscopy (EGD) Hx of dilation and curettage Hx of cholecystectomy Hx of hysterectomy History of bilateral cataract extraction Trigger finger of thumb Family History Father CHF (congestive heart failure) PNA (pneumonia) Dementia Diabetes HTN (hypertension) Family history of diabetes mellitus Mother CHF (congestive heart failure) MRSA (methicillin resistant Staphylococcus aureus) Son Afib Son Psoriasis Arthritis Psoriatic arthritis Daughter Hypothyroid Fibromyalgia Brother No problems noted. Brother No problems noted. Sister No problems noted. Social History Household Members: Spouse and Children Household Members Other:: Daughter Amy, and Remy Housing: House Do you presently have visiting nurse or other home services: No Alcohol intake: current Alcohol intake frequency: holidays/special occasions only Alcohol type: beer and hard liquor Patient Tobacco Use Status: Former Tobacco user Years Smoked: 50yrs +/- e-Cigarette/Vaping Use: Never Used Second Hand Smoke Exposure: No Substance Use Type: Marijuana Advance Directives Date on File: 10/27/16 service: No Current occupational status: retired Cognitive needs: Yes (walker) Hearing needs: No Vision needs: Yes (glasses) Review of Systems Const Denies chills, Denies fatigue, Denies fever(s), Denies weight gain and Denies weight loss ENT Denies dizziness Card Denies chest pain, Denies leg edema, Denies lightheadedness, Denies palpitations, Denies dyspnea on exertion, Denies orthopnea and Denies other Resp Denies cough and Denies dyspnea on exertion GI Denies hematochezia and Denies change in stool character Musc Denies abnormal gait, Denies muscle weakness, Denies numbness, Denies radiating pain into limb and Denies tingling Neuro Denies abnormal gait, Denies dizziness, Denies numbness and Denies tingling Endo Denies fatigue and Denies palpitations Physical Exam Vital Signs: Last Vital Signs Pulse 83 05/05/24 13:30 BP 114/74 05/05/24 13:30 BMI result Body Mass Index 42.1 Const General: comfortable and no acute distress Orientation/consciousness: patient oriented x3 HEENT Other: Unremarkable Head: Yes normal to inspection Neck Neck: Yes normal visual inspection Chest Chest palpation & inspection: normal inspection of the chest Resp Auscultation: clear to auscultation bilaterally Cardio Palpation: normal PMI Heart sounds: S1 normal heart sound present, S2 normal heart sound present, no gallops, no murmurs and no rubs GI Palpation (GI): Soft to palpation Back/Spine/Pelvis Other: unremarkable Skin General skin exam: no rashes or lesions noted Neuro General: patient oriented x3 Extrem General: Yes normal to inspection Psych Mental Status: mental status grossly normal Office Procedures EKG Details: EKG with sinus rhythm at 83/Min; no significant ST-T changes; borderline prolonged UT interval of 208 millisecond; borderline prolonged corrected QT at 495 milliseconds. [id number], Complete Assessment & Plan Assessment & Plan (1) Paroxysmal A-fib: Code(s): I48.0 - Paroxysmal atrial fibrillation Category: Medical Plan: On low-dose amiodarone and diltiazem. Recheck thyroid function. Chest CT in the past shows no evidence of interstitial lung disease. Message sent to Dr. Corona regarding appropriate pulmonary assessment in the setting of amiodarone use. (2) NICM (nonischemic cardiomyopathy): Code(s): I42.8 - Other cardiomyopathies Category: Medical Plan: Last echocardiogram with LVEF of 60-65%. In the past, has been as low as 35-40%. Clinically, no heart failure symptoms. (3) Atherosclerotic cardiovascular disease: Code(s): I25.10 - Atherosclerotic heart disease of [place] coronary artery without angina pectoris Category: Medical Plan: Chest CT scan shows coronary artery calcifications. However, she does not have any angina whatsoever. In 2017, she had perfusion imaging. Suspected artifact or nontransmural infarct with fixed defect at the apical inferior wall and apical anterior septum. She is statin intolerant. She is on Repatha but she states that she can not take them every 2 weeks as it is too expensive. Hence she takes them in longer intervals as much as she can afford. Last year, lipids are still high. She is due to get them again. (4) CHRISTIANO on CPAP: Code(s): G47.33 - Obstructive sleep apnea (adult) (pediatric); Z99.89 - Dependence on other enabling machines and devices Category: Medical Plan: Continue CPAP. (5) Encounter for monitoring amiodarone therapy: Code(s): Z51.81 - Encounter for therapeutic drug level monitoring; Z79.899 - Other fci (current) drug therapy Category: Medical Plan: Check TSH. Pulmonary status followed by Dr. Corona. Orders: Orders TSH reflex Free T4 Today Liang Larios MD I48.0 - Paroxysmal atrial fibrillation Medications: Changed From gabapentin 800 mg PO TID 270 tabs 3RF To gabapentin 800 mg PO BID Jero Corona MD Coding Level of Care Code Est Pt Level 4 (07734) Diagnoses Paroxysmal A-fib I48.0 NICM (nonischemic cardiomyopathy) I42.8 Atherosclerotic cardiovascular disease I25.10 CHRISTIANO on CPAP G47.33; Z99.89 Encounter for monitoring amiodarone therapy Z51.81; Z79.899 CPT Codes EKG - CPT: 49607-[id number], Complete ([id number])
[2024-05-05 13:30] VITALS: BP 114/74; PULSE 83; BMI 42.1
== END 2024-05-05 13:52 | disposition home or self-care (01) ==
PROVIDERS: PCP Physician Assistant; Visit Provider Internal Medicine
DX: I48.0 Paroxysmal atrial fibrillation (principal); I42.8 Other cardiomyopathies; I25.10 Atherosclerotic heart disease of native coronary artery without angina pectoris; G47.33 Obstructive sleep apnea (adult) (pediatric); Z99.89 Dependence on other enabling machines and devices; Z51.81 Encounter for therapeutic drug level monitoring; Z79.899 Other long term (current) drug therapy
CPT/HCPCS: 93010; 99214

== ENCOUNTER 2024-06-03 10:17 | Outpatient (REF) | payer MEDICARE, SELFPAY ==
[2024-06-03 11:21] LABS: Hematocrit 41.6 % (37.0-47.0); INTERNATIONAL NORM RATIO 1.4 (0.9-1.1); Mean Corpuscular HGB Conc 33.7 g/dl (31.0-35.0); Mean Corpuscular Hemoglobin 32.8 pg (27.0-33.0); Mean Corpuscular Volume 97.4 fL (80.0-98.0); Mean Platelet Volume 8.8 fL (9.4-12.3); Platelet Count 360 X10*3/uL (160-400); Prothrombin Time 16.6 SEC (11.1-13.3); Red Blood Count 4.27 X10*6/uL (4.20-5.50); Red Cell Distribution Width 13.4 % (11.0-16.0); White Blood Count 8.2 X10*3/uL (4.8-10.8)
[2024-06-03 11:30] LABS: Anion Gap 14 (12-20); Blood Urea Nitrogen 11 mg/dL (9-16); Calcium 10.1 mg/dL (8.4-10.2); Carbon Dioxide 32 mmol/L (22-29); Chloride 98 mmol/L (96-108); Estimated Glomerular Filt Rate 51; Glucose Random 96 mg/dL (60-115); Potassium 3.2 mmol/L (3.3-5.1); Sodium 141 mmol/L (135-145)
== END 2024-06-03 10:18 | disposition home or self-care (01) ==
LOC: HO.LAB 10:17
PROVIDERS: PCP Physician Assistant; Visit Provider Internal Medicine
DX: Z13.89 Encounter for screening for other disorder (principal)
CPT/HCPCS: 36415; 80048; 85027; 85610; 99211

== ENCOUNTER 2024-06-03 10:17 | Outpatient (AMB) | payer MEDICARE, SELFPAY ==
[2024-06-03 10:43] LABS: Prothrombin Time Whole Bld POC 17.8 sec (11.1-13.5); ~PT, ~INR - Anti Coag Clinic 1.5 (0.9-1.1)
--- NOTE | 2024-06-03 11:40 | MHC.OFFVISCO ---
Intake Intake Visit Reasons: Anticoagulation Allergies latex [LATEX] Allergy (Intermediate, Verified 06/03/24 11:42) RASH GUILLERMO Inhibitors Allergy (Mild, Verified 06/03/24 11:42) cough varenicline [From Chantix] Allergy (Mild, Verified 06/03/24 11:42) hives rosuvastatin Adverse Reaction (Intermediate, Verified 06/03/24 11:42) Muscle Pain barium sulfate Adverse Reaction (Mild, Verified 06/03/24 11:42) burn on face nicotine Adverse Reaction (Mild, Verified 06/03/24 11:42) rash lisinopril Adverse Reaction (Verified 06/03/24 11:42) cough statins Allergy (Severe, Uncoded 06/03/24 11:42) edema seasonal Allergy (Mild, Uncoded 06/03/24 11:42) seasonal allergies watermelon rind Adverse Reaction (Intermediate, Uncoded 06/03/24 11:42) Cough Medication List - Last Reconciled 06/03/24 by Thi Heredia RN albuterol sulfate 2.5 mg (3 mL) inhalation Q4H 30 days albuterol sulfate 90 mcg/actuation 2 inhalations inhalation Q6H PRN 30 days amiodarone 100 mg PO DAILY baclofen 10 mg PO BID 90 days budesonide 0.5 mg (2 mL) inhalation BID [CANNIBIS TAKE 1 GUMMY PO Q AM AND Q PM ] cetirizine (Allergy Relief (cetirizine)) 10 mg PO DAILY denosumab (Prolia) 60 mg subcut [id number] diclofenac sodium 1% (Voltaren Arthritis Pain) 2 grams topical QID PRN diltiazem HCl CD 360 mg PO DAILY evolocumab (Repatha SureClick) 140 mg subcut Q2W 90 days furosemide 40 mg PO BID gabapentin 800 mg PO BID losartan 25 mg PO DAILY miscellaneous medical supply (Blood Pressure Cuff) As directed mupirocin 2% 1 appl topical TID nebulizers As directed nystatin 1 appl topical DAILY 10 days omeprazole 20 mg PO DAILY Oxygen Home Use As directed potassium chloride ER (Klor-Con M) 10 mEq PO DAILY 90 days roflumilast 500 mcg PO DAILY 90 days warfarin 5 mg See Protocol PO DAILY 90 days Nursing Note INR 1.4 out of therapeutic range Medications and supplements reviewed Patient status: Had more greens than usual last week, this friday she felt her hr and b/p flucatting used her cartia on her phone and found she was in afib called MD- PCP Carlos is aware, was to call her drywall stripper - in the meantime she feels like she cannot get enough air even with her o2, fri and fri this week she developed diarrhea after she ate anything had decrease in appetite, today her b/p and hr cont to flucuate and she does not feel well, and sob even with o2, b/p 150s / 80s her 90-100 ST lung sound dim in bases sent pt for CBC, BMP and INR Notified PCP and cardiologis of pt status and brought to ER - due to her flucuating vitals and hx of afib and abd aneurysm Medications or supplements: unsure if her Heart med changed - she stated she noticed a change in color Diet: poor x 2 days Denies any signs and symptoms of bleeding or clotting or unusual bruising Bleeding, bruising, clotting discussed Nutritional guidance given: avoid greens x 2 days Dose: 7.5mg today then resume usual dose F/U INR Date : 06/07/24Friday ? Patient and spouse verbalizing understanding of instructions given. Brought to ER via wheelchair with spouse and report given to charge nurse Anti-Coag Initial Assessment Social Hx Patient Tobacco Use Status: Former Tobacco user alcohol intake: current Alcohol intake frequency: holidays/special occasions only Coding Level of Care Code Est Patient Level 1 Diagnoses Current use of anticoagulant therapy Z79. Comment called md and brought to ER Assessment & Plan Assessment & Plan (1) Current use of anticoagulant therapy: Code(s): Z79.01 - [facility] (current) use of anticoagulants Category: Medical Orders: Orders Complete Blood Count no Diff Today Z79.01 - [facility] (current) use of anticoagulants Prothrombin Time INR Today Z79.01 - [facility] (current) use of anticoagulants Basic Metabolic Panel Today R19.7 - Diarrhea, unspecified
== END 2024-06-03 11:51 | disposition home or self-care (01) ==
LOC: HO.ACS 10:17
PROVIDERS: PCP Physician Assistant; Visit Provider Internal Medicine
DX: Z79.01 Long term (current) use of anticoagulants (principal)

== ENCOUNTER 2024-06-03 11:26 | Emergency (ER) | payer MEDICARE, SELFPAY ==
--- NOTE | ~2024-06-03 | XR_ITS ---
EXAMINATION: XR CHEST CLINICAL INFORMATION: A regular heart rate COMPARISON: 07/22/2023 TECHNIQUE: Frontal view of the chest was obtained. FINDINGS: Lungs are mildly hypoinflated compared to the prior and there is slight increase in bibasilar atelectasis. Heart size within normal limits given technique. No evidence of CHF. XR/XR chest 1V IMPRESSION: Hypoinflated lungs with bibasilar atelectasis.
--- NOTE | 2024-06-03 11:27 | ECG_ITS ---
Test Reason : abnormal hr Blood Pressure : / mmHG Vent. Rate : 090 BPM Atrial Rate : 090 BPM P-R Int : 194 ms QRS Dur : 088 ms QT Int : 428 ms P-R-T Axes : 039 020 031 degrees QTc Int : 523 ms Normal sinus rhythm Low voltage QRS Septal infarct , age undetermined Prolonged QT Abnormal ECG When compared with ECG of 22-JUL-2023 13:58, Septal infarct is now Present Referred By: Generic ED Physician Electronically Signed By:SCARLETT ROBLEDO MD
[2024-06-03 11:40] VITALS: BP 169/93; PULSE 95; RESP 20; TEMP 36.8; O2SAT 94; BMI 42.7
[2024-06-03 12:19] LABS: Basophils Percent Auto 0.3 % (0-2); Eosinophils Absolute Auto 0.1 X10*3/uL (0.0-0.4); Eosinophils Percent Auto 0.9 % (0-4); Hematocrit 42.7 % (37.0-47.0); Hemoglobin 14.4 g/dl (12.0-16.0); Imm Gran Abs Auto 0.06 X10*3/uL (0.00-0.03); Imm Gran Pct Auto 0.7 % (0.0-0.4); Lymphocytes Absolute Auto 1.7 X10*3/uL (1.2-4.9); Lymphocytes Percent Auto 19.7 % (20-40); MANUAL DIFF FLAG NO; Mean Corpuscular HGB Conc 33.7 g/dl (31.0-35.0); Mean Corpuscular Hemoglobin 32.5 pg (27.0-33.0); Mean Corpuscular Volume 96.4 fL (80.0-98.0); Mean Platelet Volume 8.6 fL (9.4-12.3); Monocytes Absolute Auto 0.7 X10*3/uL (0.1-1.2); Monocytes Percent Auto 7.8 % (2-11); Neutrophils Absolute Auto 6.1 x10*3/uL (2.0-8.3); Neutrophils Percent Auto 70.6 % (45-73); Platelet Count 359 X10*3/uL (160-400); Red Blood Count 4.43 X10*6/uL (4.20-5.50); Red Cell Distribution Width 13.3 % (11.0-16.0); White Blood Count 8.6 X10*3/uL (4.8-10.8)
[2024-06-03 12:31] LABS: INTERNATIONAL NORM RATIO 1.4 (0.9-1.1); Prothrombin Time 16.5 SEC (11.1-13.3)
[2024-06-03 12:34] VITALS: BP 173/87; PULSE 89; RESP 23; O2SAT 94
[2024-06-03 12:44] LABS: Alanine Aminotransferase 18 U/L (0-31); Albumin Level 4.3 g/dL (3.5-5.0); Alkaline Phosphatase 96 U/L (39-117); Anion Gap 15 (12-20); Aspartate Amino Transferase 19 U/L (5-31); Bilirubin Total 0.7 mg/dL (0.0-1.0); Blood Urea Nitrogen 11 mg/dL (9-16); Calcium 10.3 mg/dL (8.4-10.2); Carbon Dioxide 33 mmol/L (22-29); Chloride 99 mmol/L (96-108); Creatinine Clr Calc Pharmacy 53.8; Estimated Glomerular Filt Rate 48; Glucose Random 97 mg/dL (60-115); Lipase 23 U/L (8-78); Magnesium 2.1 mg/dL (1.6-2.6); Potassium 3.6 mmol/L (3.3-5.1); Sodium 143 mmol/L (135-145)
[2024-06-03 12:51] LABS: Troponin-I High Sensitivity 4.2 ng/L (<3.5-17.0)
--- NOTE | 2024-06-03 13:11 | ED.GENADULT ---
HPI - General Adult General Chief complaint: General Medical Stated complaint: abnormal heart rate Time Seen by Provider: 06/03/24 13:11 Source: patient Mode of arrival: ambulatory Limitations: no limitations History of Present Illness HPI narrative: 73-year-old female past medical history of COPD on 2 L at baseline hyperlipidemia AFib on Coumadin use a CPAP at night and cardiomyopathy who presents to the emergency department complaining of palpitations. She states she felt her heart was fluttering after she had some diarrhea. She states whenever she eats who was right there she denies any nausea vomiting chest pain or shortness of breath and she does have history of abdominal aortic aneurysm but denies any abdominal pain at this time she does take amiodarone and took all her medications this morning. She denies any palpitations at the time she states that all she is feeling is flushed want her blood pressure is elevated and she is concerned that blood pressure has been labile changing multiple times a day she denies headache vision changes and states she was sent here by Dr. Larios. Related Data Home Medications ?Medication ?Instructions ?Recorded ?Confirmed cetirizine 10 mg tablet (Allergy 10 mg PO DAILY 11/15/20 06/03/24 Relief (cetirizine)) CANNIBIS PO 10/31/22 06/03/24 omeprazole 20 mg capsule,delayed 20 mg PO DAILY 10/31/22 06/03/24 release denosumab 60 mg/mL subcutaneous 60 mg subcut [id number] 02/05/23 06/03/24 syringe (Prolia) Oxygen Home Use 02/19/23 06/03/24 diclofenac sodium 1 % topical gel 2 g topical QID PRN 12/24/23 06/03/24 (Voltaren Arthritis Pain) nebulizers 02/16/24 06/03/24 diltiazem HCl 360 mg 360 mg PO DAILY 05/05/24 06/03/24 capsule,extended release 24 hr gabapentin 800 mg tablet 800 mg PO BID 05/05/24 06/03/24 Previous Rx's ?Medication ?Instructions ?Recorded nystatin 100,000 unit/gram topical 1 appl topical DAILY 10 days #30 07/22/22 cream grams mupirocin 2 % topical ointment 1 appl topical TID #22 grams 08/19/22 miscellaneous medical supply #1 ea 01/14/23 (Blood Pressure Cuff) albuterol sulfate 90 mcg/actuation 2 inh inhalation Q6H PRN shortness 02/19/23 aerosol inhaler of breath or wheezing 30 days #18 grams albuterol sulfate 2.5 mg/3 mL 2.5 mg (3 mL) inhalation Q4H 30 07/06/23 (0.083 %) solution for nebulization days #180 mL evolocumab 140 mg/mL subcutaneous 140 mg subcut Q2W 90 days #7 mL 08/05/23 pen injector (Radha Alegre) amiodarone 100 mg tablet 100 mg PO DAILY #90 tabs 08/19/23 potassium chloride 10 mEq 10 meq PO DAILY 90 days #90 tabs 12/24/23 tablet,extended release(part/cryst) (Klor-Con M) warfarin 5 mg tablet 5 mg PO DAILY 90 days #90 tabs 01/17/24 budesonide 0.5 mg/2 mL suspension 0.5 mg (2 mL) inhalation BID #360 03/31/24 for nebulization mL losartan 25 mg tablet 25 mg PO DAILY #90 tabs 05/21/24 roflumilast 500 mcg tablet 500 mcg PO DAILY 90 days #90 tabs 05/21/24 baclofen 10 mg tablet 10 mg PO BID 90 days #180 tabs 05/24/24 furosemide 40 mg tablet 40 mg PO BID #180 tabs 05/24/24 Allergies Allergy/AdvReac Type Severity Reaction Status Date / Time latex [LATEX] Allergy Intermediate RASH Verified 06/03/24 11:42 GUILLERMO Inhibitors Allergy Mild cough Verified 06/03/24 11:42 varenicline [From Chantix] Allergy Mild hives Verified 06/03/24 11:42 rosuvastatin AdvReac Intermediate Muscle Pain Verified 06/03/24 11:42 barium sulfate AdvReac Mild burn on Verified 06/03/24 11:42 face nicotine AdvReac Mild rash Verified 06/03/24 11:42 lisinopril AdvReac cough Verified 06/03/24 11:42 statins Allergy Severe edema Uncoded 06/03/24 11:42 seasonal Allergy Mild seasonal Uncoded 06/03/24 11:42 allergies watermelon rind AdvReac Intermediate Cough Uncoded 06/03/24 11:42 Review of Systems Review of Systems: Review of systems: General: Patient denies any fever chills recent illness or falls Musculoskeletal: Denies back pain or body aches or other injuries HEENT: denies headache, runny nose, ear pain Respiratory: denies shortness of breath, cough Cardiovascular: no chest pain she did have palpitations : denies dysuria, frequency Abdomen: no nausea vomiting denies abdominal pain Extremities: no swelling, no pain Skin: no diaphoresis Yes all other systems are reviewed and are negative [facility] Past Medical History Medical History COPD (chronic obstructive pulmonary disease) Atelectasis Acute and chronic respiratory failure Aortic aneurysm COPD (chronic obstructive pulmonary disease) Arthralgia NICM (nonischemic cardiomyopathy) Hyperlipidemia Arthropathy of cervical spine Cardiomyopathy Paroxysmal A-fib Abdominal pain Chronic respiratory failure CHRISTIANO on CPAP COPD (chronic obstructive pulmonary disease) Surgical History History of esophagogastroduodenoscopy (EGD) Hx of dilation and curettage Hx of cholecystectomy Hx of hysterectomy History of bilateral cataract extraction Trigger finger of thumb Family History Family History Father CHF (congestive heart failure) PNA (pneumonia) Dementia Diabetes HTN (hypertension) Family history of diabetes mellitus Mother CHF (congestive heart failure) MRSA (methicillin resistant Staphylococcus aureus) Son Afib Son Psoriasis Arthritis Psoriatic arthritis Daughter Hypothyroid Fibromyalgia Brother No problems noted. Brother No problems noted. Sister No problems noted. Social History Social History Household Members: Spouse and Children Household Members Other:: Daughter Amy, and Remy Housing: House Do you presently have visiting nurse or other home services: No Alcohol intake: current Alcohol intake frequency: holidays/special occasions only Alcohol type: beer and hard liquor Patient Tobacco Use Status: Former Tobacco user Years Smoked: 50yrs +/- e-Cigarette/Vaping Use: Never Used Second Hand Smoke Exposure: No Substance Use Type: Marijuana Advance Directives: No Advance Directives Information Provided: Yes Advance Directives Date on File: 10/27/16 Do you have a plan to hurt others: No Plan service: No Current occupational status: retired Cognitive needs: Yes (walker) Hearing needs: No Vision needs: Yes (glasses) Physical Exam ED Vital Signs: Vital Signs - 24 hr 06/03/24 11:40 06/03/24 12:34 Temperature 98.2 F Pulse Rate 95 89 Respiratory Rate 20 23 H Blood Pressure 169/93 H 173/87 H Pulse Oximetry 94 94 Oxygen Delivery Method Nasal Cannula Nasal Cannula Oxygen Flow Rate 2 BMI result Body Mass Index 42.7 Neurological exam: CN II- XII tested. Patient is alert and oriented to person place and time. Patient has no dysphagia or dysarthia, denies good vision in all four vision clark no nystagmus on exam, good strength to upper and lower extremities with normal reflexes to brachioradialis, wrist, patella and achilles. Negative romberg, good finger to nose and heel to [place]. General: Well-appearing well-nourished in no signs of distress HEENT: Normocephalic atraumatic Neck: No signs of JVD, no masses no tenderness or lymphadenopathy Cardiovascular: Regular rate and rhythm Respiratory: Clear to auscultation bilaterally Abdomen: Soft nontender no masses Extremities: Normal pedal pulses no signs of edema Skin: Dry warm no rashes Back: No tenderness full ROM Course Course Course Narrative: Patient looks well I do not see a need for the patient be admitted she does want to talk to Dr. Larios who was paged to see if she can see the patient emergently I do not think presenting thinks he had had to the workup at this time. Medical Decision Making Medical Decision Making [facility] Narrative: I will give the patient over for labs x-ray and reassess heart rate is normal on arrival Differential Diagnosis Differential Diagnoses: The differential diagnosis associated with the presentation includes Palpitations electrolyte abnormality dizziness weakness Admission/Observation Consideration of admission/observation: Escalation of care including admission/observation considered Consult Healthcare Provider Management of the patient was discussed with: [employer] Lab Data [facility] Lab Attestation statement: I reviewed the patient's lab results. 06/03/24 12:10 06/03/24 12:10 Labs: Lab Results 06/03/24 Range/Units 12:10 WBC 8.6 (4.8-10.8) X10*3/uL RBC 4.43 (4.20-5.50) X10*6/uL Hgb 14.4 (12.0-16.0) g/dl Hct 42.7 (37.0-47.0) % MCV 96.4 (80.0-98.0) fL MCH 32.5 (27.0-33.0) pg MCHC 33.7 (31.0-35.0) g/dl RDW 13.3 (11.0-16.0) % Plt Count 359 (160-400) X10*3/uL MPV 8.6 L (9.4-12.3) fL Immature Gran % (Auto) 0.7 H (0.0-0.4) % Neut % (Auto) 70.6 (45-73) % Lymph % (Auto) 19.7 L (20-40) % Nash % (Auto) 7.8 (2-11) % Eos % (Auto) 0.9 (0-4) % Baso % (Auto) 0.3 (0-2) % Lymph # (Auto) 1.7 (1.2-4.9) X10*3/uL Nash # (Auto) 0.7 (0.1-1.2) X10*3/uL Eos # (Auto) 0.1 (0.0-0.4) X10*3/uL Baso # (Auto) 0.0 (0.0-0.2) X10*3/uL Abs Immat Gran (auto) 0.06 H (0.00-0.03) X10*3/uL Absolute Neuts (auto) 6.1 (2.0-8.3) x10*3/uL Absolute Nucleated RBC 0.000 (0.0-0.012) X10*3/uL Nucleated RBC % (auto) 0.0 (0.0-0.2) /100WBC PT 16.5 H (11.1-13.3) SEC INR 1.4 H (0.9-1.1) Sodium 143 (135-145) mmol/L Potassium 3.6 (3.3-5.1) mmol/L Chloride 99 (96-108) mmol/L Carbon Dioxide 33 H (22-29) mmol/L Anion Gap 15 (12-20) BUN 11 (9-16) mg/dL Creatinine 1.11 (0.5-1.4) mg/dL Estim Creat Clear Calc 53.8 Estimated GFR 48 Random Glucose 97 (60-115) mg/dL Calcium 10.3 H (8.4-10.2) mg/dL Magnesium 2.1 (1.6-2.6) mg/dL Total Bilirubin 0.7 (0.0-1.0) mg/dL AST 19 (5-31) U/L ALT 18 (0-31) U/L Alkaline Phosphatase 96 (39-117) U/L Troponin I High Sens 4.2 D (<3.5-17.0) ng/L Total Protein 8.0 (6.5-8.0) g/dL Albumin 4.3 (3.5-5.0) g/dL Lipase 23 (8-78) U/L Independent Interpretation I performed an independent interpretation of an: EKG and Plain X-Ray Interpretation: Rate 90 normal sinus rhythm normal intervals no signs of ischemia no previous change Radiology Impression Discussion of test interpretation with radiology: I have reviewed the radiologist's reading. External Record Review External record reviewed: Inpatient record, Office record and Outpatient record Chronic Conditions Patient?s care impacted by: Hypertension Discharge Plan Discharge Clinical Impression: Hypertension, Palpitation Patient Disposition: Home, Self-Care Instructions: Chronic Hypertension (DC), DASH Eating Plan (ED), How to Take a Blood Pressure (ED) Additional Instructions: You were seen today for palpitations and elevated blood pressure. You had labs and x-ray done which was all normal. Please call follow up with your doctor if you have any other concerns please do not hesitate to come back to the emergency department. Prescriptions: No Action albuterol sulfate 2.5 mg /3 mL (0.083 %) solution for nebulization 2.5 mg INHALATION Q4H 30 Days Qty: 180 11RF Repatha SureClick 140 mg/mL pen injector 140 mg subcut Q2W 90 Days Qty: 7 3RF amiodarone 100 mg tablet 100 mg PO DAILY Qty: 90 3RF potassium chloride [Klor-Con M10] 10 mEq tablet,ER particles/crystals 10 meq PO DAILY 90 Days Qty: 90 2RF warfarin 5 mg tablet 5 mg PO DAILY 90 Days Qty: 90 2RF Protocol: Dose Management Condition: Friday (Week One) Dose/Route: 5 mg Instruction: 1 x 5 mg tablet Condition: Friday Dose/Route: 2.5 mg Instruction: 0.5 x 5 mg tablets Condition: Friday Dose/Route: 5 mg Instruction: 1 x 5 mg tablet Condition: Friday Dose/Route: 5 mg Instruction: 1 x 5 mg tablet Condition: Dose/Route: 7.5 mg Instruction: 1.5 x 5 mg tablets Condition: Friday Dose/Route: 5 mg Instruction: 1 x 5 mg tablet Condition: Friday Dose/Route: 5 mg Instruction: 1 x 5 mg tablet Condition: Friday (Week Two) Dose/Route: 5 mg Instruction: 1 x 5 mg tablet Condition: Friday Dose/Route: 2.5 mg Instruction: 0.5 x 5 mg tablets Condition: Friday Dose/Route: 5 mg Instruction: 1 x 5 mg tablet Condition: Friday Dose/Route: 5 mg Instruction: 1 x 5 mg tablet Condition: Dose/Route: 5 mg Instruction: 1 x 5 mg tablet Condition: Friday Dose/Route: 5 mg Instruction: 1 x 5 mg tablet Condition: Friday Dose/Route: 5 mg Instruction: 1 x 5 mg tablet Protocol Text: Adjustment Start Date: 06/03/24 INR Value: 1.4 INR Date: 06/03/24 Additional Instructions: REVIEW FOOD LIST WEEKLY, AVOID GREENS X 3 DAYS budesonide 0.5 mg/2 mL suspension for nebulization 0.5 mg inhalation BID Qty: 360 0RF roflumilast 500 mcg tablet 500 mcg PO DAILY 90 Days Qty: 90 3RF Rx Instructions: pt states taking qod losartan 25 mg tablet 25 mg PO DAILY Qty: 90 3RF baclofen 10 mg tablet 10 mg PO BID 90 Days Qty: 180 2RF furosemide 40 mg tablet 40 mg PO BID Qty: 180 3RF nystatin 100,000 unit/gram cream 1 appl topical DAILY 10 Days Qty: 30 1RF (DME) Blood Pressure Cuff Misc See Rx Instructions .ROUTE .MEDSUPPLY Qty: 1 0RF Rx Instructions: As directed cetirizine [Allergy Relief (cetirizine)] 10 mg tablet 10 mg PO DAILY mupirocin 2 % ointment 1 appl topical TID Qty: 22 0RF Prolia 60 mg/mL syringe 60 mg subcut [id number] omeprazole 20 mg capsule,delayed release(DR/EC) 20 mg PO DAILY CANNIBIS PO Rx Instructions: TAKE 1 GUMMY PO Q AM AND Q PM (DME) Oxygen Home Use Kit See Rx Instructions .Route Rx Instructions: As directed albuterol sulfate 90 mcg/actuation HFA aerosol inhaler 2 inh inhalation Q6H PRN (Reason: shortness of breath or wheezing) 30 Days Qty: 18 12RF (DME) nebulizers Misc See Rx Instructions .Route Rx Instructions: As directed Prolia 60 mg/mL syringe 60 mg subcut ONCE Qty: 1 0RF diclofenac sodium [Voltaren Arthritis Pain] 1 % gel 2 g topical QID PRN Rx Instructions: apply to single elbow, wrist or hand; for hand includes palm/fingers/back of hand gabapentin 800 mg tablet 800 mg PO BID diltiazem HCl 360 mg capsule,extended release 24hr 360 mg PO DAILY Rx Instructions: 360 mg orally daily; Print Language: Qatari
[2024-06-03 13:45] VITALS: BP 173/82; PULSE 94; RESP 18; TEMP 36.8; O2SAT 98
[2024-06-03 14:15] LABS: Influenza A PCR NEGATIVE (Negative); Influenza B PCR NEGATIVE (Negative); Resp Syncy Virus RNA Qual PCR NEGATIVE (Negative); SARS COV2 PCR INHOUSE NEGATIVE (Negative)
== END 2024-06-03 13:44 | disposition home or self-care (01) ==
PROVIDERS: Emergency Provider Student in an Organized Health Care Education/Training Program; PCP Physician Assistant
DX: R00.2 Palpitations (principal); I10 Essential (primary) hypertension; Z03.818 Encounter for observation for suspected exposure to other biological agents ruled out; E78.5 Hyperlipidemia, unspecified; I48.0 Paroxysmal atrial fibrillation; J44.9 Chronic obstructive pulmonary disease, unspecified; G47.33 Obstructive sleep apnea (adult) (pediatric); M35.3 Polymyalgia rheumatica; J96.10 Chronic respiratory failure, unspecified whether with hypoxia or hypercapnia; Z87.891 Personal history of nicotine dependence; Z99.89 Dependence on other enabling machines and devices; Z99.81 Dependence on supplemental oxygen; Z79.01 Long term (current) use of anticoagulants; Z79.52 Long term (current) use of systemic steroids
CPT/HCPCS: 0241U; 36415; 71045; 80048; 80053; 83690; 83735; 84484; 85025; 85027; 85610; 93005; 99211; 99283

== ENCOUNTER → 2024-06-03 11:27 | Outpatient (BNV) | payer MEDICARE, SELFPAY | PROVIDERS: Emergency Provider Student in an Organized Health Care Education/Training Program; PCP Physician Assistant; Visit Provider Internal Medicine Cardiovascular Disease | DX: R94.31 Abnormal electrocardiogram [ECG] [EKG] (principal) | CPT/HCPCS: 93010 ==

== ENCOUNTER 2024-06-07 10:19 | Outpatient (AMB) | payer MEDICARE, SELFPAY ==
[2024-06-07 10:37] LABS: Prothrombin Time Whole Bld POC 22.6 sec (11.1-13.5); ~PT, ~INR - Anti Coag Clinic 1.9 (0.9-1.1)
--- NOTE | 2024-06-07 10:43 | MHC.OFFVISCO ---
Intake Intake Visit Reasons: Anticoagulation Allergies latex [LATEX] Allergy (Intermediate, Verified 06/07/24 10:20) RASH GUILLERMO Inhibitors Allergy (Mild, Verified 06/07/24 10:20) cough varenicline [From Chantix] Allergy (Mild, Verified 06/07/24 10:20) hives rosuvastatin Adverse Reaction (Intermediate, Verified 06/07/24 10:20) Muscle Pain barium sulfate Adverse Reaction (Mild, Verified 06/07/24 10:20) burn on face nicotine Adverse Reaction (Mild, Verified 06/07/24 10:20) rash lisinopril Adverse Reaction (Verified 06/07/24 10:20) cough statins Allergy (Severe, Uncoded 06/07/24 10:20) edema seasonal Allergy (Mild, Uncoded 06/07/24 10:20) seasonal allergies watermelon rind Adverse Reaction (Intermediate, Uncoded 06/07/24 10:20) Cough Medication List - Last Reconciled 06/07/24 by Thi Heredia RN albuterol sulfate 2.5 mg (3 mL) inhalation Q4H 30 days albuterol sulfate 90 mcg/actuation 2 inhalations inhalation Q6H PRN 30 days amiodarone 100 mg PO DAILY baclofen 10 mg PO BID 90 days budesonide 0.5 mg (2 mL) inhalation BID [CANNIBIS TAKE 1 GUMMY PO Q AM AND Q PM ] cetirizine (Allergy Relief (cetirizine)) 10 mg PO DAILY denosumab (Prolia) 60 mg subcut [id number] diclofenac sodium 1% (Voltaren Arthritis Pain) 2 grams topical QID PRN diltiazem HCl CD 360 mg PO DAILY evolocumab (Repatha SureClick) 140 mg subcut Q2W 90 days furosemide 40 mg PO BID gabapentin 800 mg PO BID losartan 25 mg PO DAILY miscellaneous medical supply (Blood Pressure Cuff) As directed mupirocin 2% 1 appl topical TID nebulizers As directed nystatin 1 appl topical DAILY 10 days omeprazole 20 mg PO DAILY Oxygen Home Use As directed potassium chloride ER (Klor-Con M) 10 mEq PO DAILY 90 days roflumilast 500 mcg PO DAILY 90 days warfarin 5 mg See Protocol PO DAILY 90 days Nursing Note INR: 1.9 in therapeutic range Medications and supplements reviewed No changes in health, diet, medications, or supplements, Denies any signs and symptoms of bleeding or bruising or clotting. Bleeding, bruising, clotting discussed Nutritional guidance given Dose: 5MG DAILY F/U INR: 2 WEEKS Patient verbalizes understanding of instructions given Anti-Coag Initial Assessment Social Hx Patient Tobacco Use Status: Former Tobacco user alcohol intake: current Alcohol intake frequency: holidays/special occasions only Coding Level of Care Code Est Patient Level 1 Diagnoses Current use of anticoagulant therapy Z79.01 Results AMB INR Fingerstick AMB INR Fingerstick 1.9 Last Edit by Thi Heredia RN on 06/07/24 10:29 MANUAL ENTRY Assessment & Plan Assessment & Plan (1) Current use of anticoagulant therapy: Code(s): Z79.01 - correction (current) use of anticoagulants Category: Medical
== END 2024-06-07 10:46 | disposition home or self-care (01) ==
LOC: HO.ACS 10:19
PROVIDERS: PCP Physician Assistant; Visit Provider Internal Medicine
DX: Z79.01 Long term (current) use of anticoagulants (principal)

== ENCOUNTER → 2024-06-07 10:19 | Outpatient (BNVA) | payer MEDICARE, SELFPAY | PROVIDERS: PCP Physician Assistant; Visit Provider Internal Medicine | DX: I48.0 Paroxysmal atrial fibrillation (principal); Z79.01 Long term (current) use of anticoagulants; Z51.81 Encounter for therapeutic drug level monitoring | CPT/HCPCS: 85610; 99211 ==

== ENCOUNTER 2024-06-11 13:30 | Outpatient (AMB) | payer MEDICARE, SELFPAY ==
[2024-06-11 13:35] VITALS: BP 128/68; PULSE 84; BMI 42.4
--- NOTE | 2024-06-11 13:35 | A.OFFVIS_ITS ---
Vital Signs 06/11/24 13:35 06/11/24 14:06 Height 5 ft 4 in Weight 246 lb 14.684 oz BMI 42.4 BP 128/68 128/70 Blood Pressure Location Lt brachial Lt brachial Position Sitting Sitting Pulse 84 Pulse Source Monitor Intake Visit Reasons: [facility] [place]- bp problems Allergies latex [LATEX] Allergy (Intermediate, Verified 06/07/24 10:20) RASH GUILLERMO Inhibitors Allergy (Mild, Verified 06/07/24 10:20) cough varenicline [From Chantix] Allergy (Mild, Verified 06/07/24 10:20) hives rosuvastatin Adverse Reaction (Intermediate, Verified 06/07/24 10:20) Muscle Pain barium sulfate Adverse Reaction (Mild, Verified 06/07/24 10:20) burn on face nicotine Adverse Reaction (Mild, Verified 06/07/24 10:20) rash lisinopril Adverse Reaction (Verified 06/07/24 10:20) cough statins Allergy (Severe, Uncoded 06/07/24 10:20) edema seasonal Allergy (Mild, Uncoded 06/07/24 10:20) seasonal allergies watermelon rind Adverse Reaction (Intermediate, Uncoded 06/07/24 10:20) Cough HPI Comments Details: 73-year-old female presents today for follow-up after being in the emergency department on 06/03/2024 related to her blood pressures. About a week and a half ago patient started to feel flushed and checked her blood pressure it read 169/90 then she checked on her Kardia which said AFib. She was having episodes of diarrhea in her blood pressures were going up and down. She was taking all her medications as prescribed. Patient states she started to feel better on 06/06 . [facility] Medical History COPD (chronic obstructive pulmonary disease) Atelectasis Acute and chronic respiratory failure Aortic aneurysm COPD (chronic obstructive pulmonary disease) Arthralgia NICM (nonischemic cardiomyopathy) Hyperlipidemia Arthropathy of cervical spine Cardiomyopathy Paroxysmal A-fib Abdominal pain Chronic respiratory failure CHRISTIANO on CPAP COPD (chronic obstructive pulmonary disease) Surgical History History of esophagogastroduodenoscopy (EGD) Hx of dilation and curettage Hx of cholecystectomy Hx of hysterectomy History of bilateral cataract extraction Trigger finger of thumb Family History Father CHF (congestive heart failure) PNA (pneumonia) Dementia Diabetes HTN (hypertension) Family history of diabetes mellitus Mother CHF (congestive heart failure) MRSA (methicillin resistant Staphylococcus aureus) Son Afib Son Psoriasis Arthritis Psoriatic arthritis Daughter Hypothyroid Fibromyalgia Brother No problems noted. Brother No problems noted. Sister No problems noted. Social History Household Members: Spouse and Children Household Members Other:: Daughter Amy, and Remy Housing: House Do you presently have visiting nurse or other home services: No Alcohol intake: current Alcohol intake frequency: holidays/special occasions only Alcohol type: beer and hard liquor Patient Tobacco Use Status: Former Tobacco user Years Smoked: 50yrs +/- e-Cigarette/Vaping Use: Never Used Second Hand Smoke Exposure: No Substance Use Type: Marijuana Advance Directives Date on File: 10/27/16 service: No Current occupational status: retired Cognitive needs: Yes (walker) Hearing needs: No Vision needs: Yes (glasses) Review of Systems Const Denies weakness ENT Denies dizziness Card Denies chest pain, Denies chest pain with activity, Denies syncope, Denies rapid heart rate, Denies pedal edema, Denies edema, Denies leg edema, Denies lightheadedness, Denies palpitations, Denies dyspnea, Denies dyspnea on exertion and Denies orthopnea Resp Denies cough, Denies dyspnea and Denies dyspnea on exertion GI Denies hematochezia and Denies change in stool character Musc Denies abnormal gait, Denies muscle cramps, Denies muscle weakness, Denies numbness, Denies radiating pain into limb and Denies tingling Neuro Denies abnormal gait, Denies dizziness, Denies syncope, Denies numbness, Denies tingling and Denies weakness Endo Denies palpitations Physical Exam Vital Signs: Last Vital Signs Pulse 84 06/11/24 13:35 BP 128/70 06/11/24 14:06 BMI result Body Mass Index 42.4 Assessment & Plan Assessment & Plan (1) HTN (hypertension): Code(s): I10 - Essential (primary) hypertension Category: Medical Qualifiers: Hypertension type: primary hypertension Qualified Code(s): I10 - Essential (primary) hypertension (2) Paroxysmal A-fib: Code(s): I48.0 - Paroxysmal atrial fibrillation Category: Medical Plan Patient was having labile blood pressures while having diarrhea with a episode of atrial fibrillation. HX of afib: on amiodarone, warfarin, and diltiazem. On losartan for blood pressures. Advised to continue to monitor blood pressures periodically. If blood pressure is labile still or runs high to let us know. Baseline has been between systolic 110-130. Coding Level of Care Code Est Pt Level 3 (05100) Diagnoses Primary hypertension I10 Hypertension type: primary hypertension Paroxysmal A-fib I48.0
[2024-06-11 14:06] VITALS: BP 128/70
== END 2024-06-11 14:37 | disposition home or self-care (01) ==
PROVIDERS: PCP Physician Assistant; Visit Provider Nurse Practitioner
DX: I10 Essential (primary) hypertension (principal); I48.0 Paroxysmal atrial fibrillation
CPT/HCPCS: 99213

== ENCOUNTER → 2024-06-11 13:30 | Outpatient (BNVA) | payer MEDICARE, SELFPAY | PROVIDERS: PCP Physician Assistant; Visit Provider Nurse Practitioner | DX: I10 Essential (primary) hypertension (principal); I48.0 Paroxysmal atrial fibrillation; Z87.891 Personal history of nicotine dependence | CPT/HCPCS: 99212 ==

== ENCOUNTER 2024-06-23 09:17 | Outpatient (AMB) | payer MEDICARE, SELFPAY ==
[2024-06-23 09:43] LABS: Prothrombin Time Whole Bld POC 27.8 sec (11.1-13.5); ~PT, ~INR - Anti Coag Clinic 2.3 (0.9-1.1)
--- NOTE | 2024-06-23 09:47 | MHC.OFFVISCO ---
Intake Intake Visit Reasons: Anticoagulation Allergies latex [LATEX] Allergy (Intermediate, Verified 06/23/24 09:37) RASH GUILLERMO Inhibitors Allergy (Mild, Verified 06/23/24 09:37) cough varenicline [From Chantix] Allergy (Mild, Verified 06/23/24 09:37) hives rosuvastatin Adverse Reaction (Intermediate, Verified 06/23/24 09:37) Muscle Pain barium sulfate Adverse Reaction (Mild, Verified 06/23/24 09:37) burn on face nicotine Adverse Reaction (Mild, Verified 06/23/24 09:37) rash lisinopril Adverse Reaction (Verified 06/23/24 09:37) cough statins Allergy (Severe, Uncoded 06/07/24 10:20) edema seasonal Allergy (Mild, Uncoded 06/07/24 10:20) seasonal allergies watermelon rind Adverse Reaction (Intermediate, Uncoded 06/07/24 10:20) Cough Medication List - Last Reconciled 06/23/24 by Charity Cintron RN albuterol sulfate 2.5 mg (3 mL) inhalation Q4H 30 days albuterol sulfate 90 mcg/actuation 2 inhalations inhalation Q6H PRN 30 days amiodarone 100 mg PO DAILY baclofen 10 mg PO BID 90 days budesonide 0.5 mg (2 mL) inhalation BID [CANNIBIS TAKE 1 GUMMY PO Q AM AND Q PM ] cetirizine (Allergy Relief (cetirizine)) 10 mg PO DAILY denosumab (Prolia) 60 mg subcut [id number] diclofenac sodium 1% (Voltaren Arthritis Pain) 2 grams topical QID PRN diltiazem HCl CD 360 mg PO DAILY evolocumab (Repatha SureClick) 140 mg subcut Q2W 90 days furosemide 40 mg PO BID gabapentin 800 mg PO TID 30 days losartan 25 mg PO DAILY miscellaneous medical supply (Blood Pressure Cuff) As directed mupirocin 2% 1 appl topical TID nebulizers As directed nystatin 1 appl topical DAILY 10 days omeprazole 20 mg PO DAILY Oxygen Home Use As directed potassium chloride ER (Klor-Con M) 10 mEq PO DAILY 90 days roflumilast 500 mcg PO DAILY 90 days warfarin 5 mg See Protocol PO DAILY 90 days Nursing Note NO CP,SOB,DIET/MED CHANGES,FALLS OR SX OF BLEEDING. CONTINUE PRESENT DOSE AND FOLLOW-UP IN 4 WEEKS(PT.REQUEST). PT.AGREES TO CALL [facility] IF ANY CONCERNS OR QUESTIONS ARISE. GOOD UNDERSTANFING OF DOSING INSTR. 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
== END 2024-06-23 09:49 | disposition home or self-care (01) ==
LOC: HO.ACS 09:17
PROVIDERS: PCP Physician Assistant; Visit Provider Internal Medicine
DX: Z79.01 Long term (current) use of anticoagulants (principal)

== ENCOUNTER → 2024-06-23 09:17 | Outpatient (BNVA) | payer MEDICARE, SELFPAY | PROVIDERS: PCP Physician Assistant; Visit Provider Internal Medicine | DX: J41.0 Simple chronic bronchitis (principal); J96.11 Chronic respiratory failure with hypoxia; K21.9 Gastro-esophageal reflux disease without esophagitis; G47.33 Obstructive sleep apnea (adult) (pediatric); Z99.89 Dependence on other enabling machines and devices; I48.0 Paroxysmal atrial fibrillation; Z79.01 Long term (current) use of anticoagulants; Z51.81 Encounter for therapeutic drug level monitoring | CPT/HCPCS: 85610; 99211; 99212 ==

== ENCOUNTER 2024-06-23 09:50 | Outpatient (AMB) | payer MEDICARE, SELFPAY ==
[2024-06-23 10:00] VITALS: PULSE 79; O2SAT 94; BMI 41.4
--- NOTE | 2024-06-23 10:00 | A.OFFVIS_ITS ---
Vital Signs 06/23/24 10:00 Height 5 ft 4.5 in Weight 245 lb BMI 41.4 Pulse 79 Pulse Source Pulse Oximeter Pulse Oximetry (%) 94 Oxygen Delivery Method Room Air Comment 2 Liters Oxygen([facility]) Intake Visit Reasons: Shortness of breath Financial Services Auditor Required: No Allergies latex [LATEX] Allergy (Intermediate, Verified 06/23/24 10:02) RASH GUILLERMO Inhibitors Allergy (Mild, Verified 06/23/24 10:02) cough varenicline [From Chantix] Allergy (Mild, Verified 06/23/24 10:02) hives rosuvastatin Adverse Reaction (Intermediate, Verified 06/23/24 10:02) Muscle Pain barium sulfate Adverse Reaction (Mild, Verified 06/23/24 10:02) burn on face nicotine Adverse Reaction (Mild, Verified 06/23/24 10:02) rash lisinopril Adverse Reaction (Verified 06/23/24 10:02) cough statins Allergy (Severe, Uncoded 06/23/24 10:02) edema seasonal Allergy (Mild, Uncoded 06/23/24 10:02) seasonal allergies watermelon rind Adverse Reaction (Intermediate, Uncoded 06/23/24 10:02) Cough HPI Comments Details: The patient is a 73-year-old woman with a known history atrial fibrillation on Eliquis in addition to amiodarone 200 mg which she takes half a tab. Apparently she worsening respiratory symptoms was admitted to [facility] with acute on chronic hypercarbic and hypoxic respiratory failure. The patient has done well though now she is on oxygen. She quit smoking. We did look at the CT scan demonstrating some small areas of ground-glass opacities. However very limited. No evidence of any significant interstitial lung disease. However, we still have to monitor closely the use of the amiodarone. She still tapering down from the prednisone. Currently she is on 3 L nasal cannula. She does have some snoring at nighttime. She does have headaches in the morning. Headaches are better at this time. She has underlying daytime drowsiness. Her Clinton score is elevated 1224. Sometimes she falls asleep at the dining room table. Patient has not a sleep study. Also, she had an echocardiogram demonstrating moderate pulmonary hypertension does also concerned and could be related to untreated sleep apnea. The patient also had pulmonary function studies demonstrating moderate obstructive ventilatory defect consistent with her degree of COPD. We did go for a walking oximetry. RA saturation 93%, desat to 88% with activity. 97% 2L at rest and maintained 95% on 2 Liters with activity. Pt needs to continue using oxygen. Needs a conserving device trial. 02/19/2023 the patient is here for pulmonary follow-up visit. Still complains of her dyspnea on exertion. Also complains that she still needs to be on the oxygen. She wishes to be off the oxygen a bit more. Unfortunately when she takes it off she does get short of breath very quickly. Usually last about 10 minutes. The patient also been having some chest congestion. She was also start Daliresp which has not started as of yet. I will send her prescription to her mail order in order for to started. She also start slowly to develop tolerance. She does continue to use his CPAP every night. CPAP therapy continues to be affecting beneficial. She has an old machine but is working well and I did suggest that she continue using that machine. Her mask is good fitting. 08/22/2023 the patient is here for a pulmonary follow-up visit. Overall the patient has been doing well from a respiratory status. She continues to have dyspnea on exertion mild to moderate severity. But overall better. She does use respiratory medications well. The medications are getting expensive. I did recommend she can decrease the Daliresp to every other day to see if this provides her with the benefits of the medication but does not cause her to go into the donut hole. The patient also had a CT scan of the abdomen. The lung bases are okay although she does have a right kidney lesion that needs to be further addressed with an MRI. She is concerned about this. In regards to the CPAP the CPAP therapy has been very affecting beneficial. She did come and she talk to our staff here and she found a better fitting mask and her machine is now adjusted and she is tolerating a perfect. Her AHI is not 0.4. She does use more than 4 hours a night in the therapy has been affecting beneficial in she will continue to use it at this time. 06/23/2024 the patient is here for a pulmonary follow-up visit. Overall she is doing fairly well. She does complaint of dyspnea on exertion. She has also felt that she has been holding her breath. Sometimes she feels some tension around her chest area. [id number] severity. She did have a chest x-ray which we personally reviewed. She is hyperinflated overall. Although it looks like her left hemidiaphragm is little higher up in does have some atelectasis in that area as well. She was supposed to start pulmonary rehabilitation but she was not able to do so because of scheduling. Therefore, I did provide with the online pulmonary rehabilitation that she can perform. I did ask her to work exercises. Also work on personally breathing. Will plan to repeat the chest x- ray in 3-4 months. If it continues to be abnormal will request a CT scan of the chest. She continues on the CPAP. The CPAP therapy continues to be affecting beneficial. She does use more than 4 hours a night. In addition to that she has been using the Daliresp that has been helpful but every other day because of the adverse effects. She continues with respiratory therapy with good compliance. She continues also using the oxygen. She has a little ulceration of her nares. I will give her additional antimicrobial ointment provide to the little ulceration. She knows to take breaks from the oxygen that will also help with an going to heating process. [facility] Medical History COPD (chronic obstructive pulmonary disease) Atelectasis Acute and chronic respiratory failure Aortic aneurysm COPD (chronic obstructive pulmonary disease) Arthralgia NICM (nonischemic cardiomyopathy) Hyperlipidemia Arthropathy of cervical spine Cardiomyopathy Paroxysmal A-fib Abdominal pain Chronic respiratory failure CHRISTIANO on CPAP COPD (chronic obstructive pulmonary disease) Surgical History History of esophagogastroduodenoscopy (EGD) Hx of dilation and curettage Hx of cholecystectomy Hx of hysterectomy History of bilateral cataract extraction Trigger finger of thumb Family History Father CHF (congestive heart failure) PNA (pneumonia) Dementia Diabetes HTN (hypertension) Family history of diabetes mellitus Mother CHF (congestive heart failure) MRSA (methicillin resistant Staphylococcus aureus) Son Afib Son Psoriasis Arthritis Psoriatic arthritis Daughter Hypothyroid Fibromyalgia Brother No problems noted. Brother No problems noted. Sister No problems noted. Social History Household Members: Spouse and Children Household Members Other:: Daughter Amy, and Remy Housing: House Do you presently have visiting nurse or other home services: No Alcohol intake: current Alcohol intake frequency: holidays/special occasions only Alcohol type: beer and hard liquor Patient Tobacco Use Status: Former Tobacco user Years Smoked: 50yrs +/- e-Cigarette/Vaping Use: Never Used Second Hand Smoke Exposure: No Substance Use Type: Marijuana Advance Directives Date on File: 10/27/16 service: No Current occupational status: retired Cognitive needs: Yes (walker) Hearing needs: No Vision needs: Yes (glasses) Review of Systems Const Denies chills, Denies fatigue, Denies fever(s), Denies frequent falls, Denies weakness, Denies weight gain and Denies weight loss ENT Denies dizziness Card Denies chest pain, Denies leg edema, Denies lightheadedness, Denies palpitations, Denies dyspnea, Reports dyspnea on exertion, Denies orthopnea and Denies other (Loss of consciousness) Resp Reports cough, Denies dyspnea and Reports dyspnea on exertion GI Denies hematochezia and Denies change in bowel habits Musc Denies abnormal gait, Denies muscle weakness, Denies numbness, Denies radiating pain into limb and Denies tingling Neuro Denies abnormal gait, Denies dizziness, Denies frequent falls, Denies numbness, Denies tingling and Denies weakness Endo Denies fatigue and Denies palpitations Physical Exam Vital Signs: Last Vital Signs Pulse 79 06/23/24 10:00 Pulse Ox 94 06/23/24 10:00 Oxygen Delivery Method Room Air 06/23/24 10:00 BMI result Body Mass Index 41.4 Const General: comfortable and no acute distress Orientation/consciousness: patient oriented x3 HEENT Other: Unremarkable Head: Yes normal to inspection Neck Neck: Yes normal visual inspection Chest Chest palpation & inspection: normal inspection of the chest Resp Auscultation: diminished lung sounds Cardio Palpation: normal PMI Heart sounds: S1 normal heart sound present, S2 normal heart sound present, no gallops, no murmurs and no rubs GI Palpation (GI): Soft to palpation Back/Spine/Pelvis Other: unremarkable Skin General skin exam: no rashes or lesions noted Neuro General: patient oriented x3 Extrem General: Yes normal to inspection Psych Mental Status: mental status grossly normal Assessment & Plan Assessment & Plan (1) COPD (chronic obstructive pulmonary disease): Code(s): J44.9 - Chronic obstructive pulmonary disease, unspecified Category: Medical Qualifiers: COPD type: chronic bronchitis Chronic bronchitis type: simple Qualified Code(s): J41.0 - Simple chronic bronchitis (2) GERD (gastroesophageal reflux disease): Code(s): K21.9 - Gastro-esophageal reflux disease without esophagitis Category: Medical Qualifiers: Esophagitis presence: without esophagitis Qualified Code(s): K21.9 - Gastro-esophageal reflux disease without esophagitis (3) CHRISTIANO on CPAP: Code(s): G47.33 - Obstructive sleep apnea (adult) (pediatric); Z99.89 - Dependence on other enabling machines and devices Category: Medical (4) COPD (chronic obstructive pulmonary disease): Code(s): J44.9 - Chronic obstructive pulmonary disease, unspecified Category: Medical Qualifiers: COPD type: emphysema Emphysema type: centrilobular Qualified Code(s): J43.2 - Centrilobular emphysema (5) Chronic respiratory failure: Code(s): J96.10 - Chronic respiratory failure, unspecified whether with hypoxia or hypercapnia Category: Medical Qualifiers: Respiratory failure complication: hypoxia Qualified Code(s): J96.11 - Chronic respiratory failure with hypoxia (6) COPD (chronic obstructive pulmonary disease): Code(s): J44.9 - Chronic obstructive pulmonary disease, unspecified Category: Medical Qualifiers: COPD type: emphysema Emphysema type: centrilobular Qualified Code(s): J43.2 - Centrilobular emphysema Plan continuie budesonide to once day Daliresp 500mcg daily (ok every other day) continue DuoNeb twice a day and as needed WILLIAN as needed continue allergy medicine: zyrtec reflux diet continue PPI continue CPAP therapy. requesting download CXR in 3-4 months, if abnormal then CT chest start pulmonary rehab online F/U 3-4 months Medications: New mupirocin 2% 1 appl topical TID 30 days 22 grams 0RF mupirocin 2% 1 appl topical TID 22 grams 0RF 30 days Coding Level of Care Code Est Pt Level 4 (47161) Complex EM visit Add On G2211 Diagnoses Simple chronic bronchitis J41.0 COPD type: chronic bronchitis Chronic bronchitis type: simple Gastroesophageal reflux disease without esophagitis K21.9 Esophagitis presence: without esophagitis CHRISTIANO on CPAP G47.33; Z99.89 Chronic respiratory failure with hypoxia J96.11 Respiratory failure complication: hypoxia Time Spent (min) 17
== END 2024-06-23 10:25 | disposition home or self-care (01) ==
PROVIDERS: PCP Physician Assistant; Visit Provider Hospitalist
DX: J41.0 Simple chronic bronchitis (principal); K21.9 Gastro-esophageal reflux disease without esophagitis; G47.33 Obstructive sleep apnea (adult) (pediatric); Z99.89 Dependence on other enabling machines and devices; J96.11 Chronic respiratory failure with hypoxia; J43.2 Centrilobular emphysema
CPT/HCPCS: 99214; G2211

== ENCOUNTER 2024-07-21 09:45 | Outpatient (AMB) | payer MEDICARE, SELFPAY ==
[2024-07-21 10:06] LABS: Prothrombin Time Whole Bld POC 34.2 sec (11.1-13.5); ~PT, ~INR - Anti Coag Clinic 2.9 (0.9-1.1)
--- NOTE | 2024-07-21 10:17 | MHC.OFFVISCO ---
Intake Intake Visit Reasons: Anticoagulation Allergies latex [LATEX] Allergy (Intermediate, Verified 07/21/24 09:52) RASH GUILLERMO Inhibitors Allergy (Mild, Verified 07/21/24 09:52) cough varenicline [From Chantix] Allergy (Mild, Verified 07/21/24 09:52) hives rosuvastatin Adverse Reaction (Intermediate, Verified 07/21/24 09:52) Muscle Pain barium sulfate Adverse Reaction (Mild, Verified 07/21/24 09:52) burn on face nicotine Adverse Reaction (Mild, Verified 07/21/24 09:52) rash lisinopril Adverse Reaction (Verified 07/21/24 09:52) cough statins Allergy (Severe, Uncoded 06/23/24 10:02) edema seasonal Allergy (Mild, Uncoded 06/23/24 10:02) seasonal allergies watermelon rind Adverse Reaction (Intermediate, Uncoded 06/23/24 10:02) Cough Medication List - Last Reconciled 07/21/24 by Charity Cintron RN albuterol sulfate 2.5 mg (3 mL) inhalation Q4H 30 days albuterol sulfate 90 mcg/actuation 2 inhalations inhalation Q6H PRN 30 days amiodarone 100 mg PO DAILY baclofen 10 mg PO BID 90 days budesonide 0.5 mg (2 mL) inhalation BID [CANNIBIS TAKE 1 GUMMY PO Q AM AND Q PM ] cetirizine (Allergy Relief (cetirizine)) 10 mg PO DAILY denosumab (Prolia) 60 mg subcut [id number] diclofenac sodium 1% (Voltaren Arthritis Pain) 2 grams topical QID PRN diltiazem HCl CD 360 mg PO DAILY evolocumab (Repatha SureClick) 140 mg subcut Q2W 90 days furosemide 40 mg PO BID gabapentin 800 mg PO TID 30 days losartan 25 mg PO DAILY miscellaneous medical supply (Blood Pressure Cuff) As directed mupirocin 2% 1 appl topical TID mupirocin 2% 1 appl topical TID 30 days nebulizers As directed nystatin 1 appl topical DAILY 10 days omeprazole 20 mg PO DAILY Oxygen Home Use As directed potassium chloride ER (Klor-Con M) 10 mEq PO DAILY 90 days roflumilast 500 mcg PO DAILY 90 days warfarin 5 mg See Protocol PO DAILY 90 days Nursing Note NO CP,SOB,DIET/MED CHANGES,FALLS OR SX OF BLKEEDING. CONTINUE 5MGM DAILY AND FOLLOW-UP IN 4 WEEKS GOOD UNDERSTANDING OF DOSING INSTR. Anti-Coag Initial Assessment Social Hx Patient Tobacco Use Status: Former Tobacco user alcohol intake: current Alcohol intake frequency: holidays/special occasions only Coding Level of Care Code Est Patient Level 1 Diagnoses Current use of anticoagulant therapy Z79.01 Assessment & Plan Assessment & Plan (1) Current use of anticoagulant therapy: Code(s): Z79.01 - [facility] (current) use of anticoagulants Category: Medical
== END 2024-07-21 10:23 | disposition home or self-care (01) ==
LOC: HO.ACS 09:45
PROVIDERS: PCP Physician Assistant; Visit Provider Internal Medicine
DX: Z79.01 Long term (current) use of anticoagulants (principal)

== ENCOUNTER → 2024-07-21 09:45 | Outpatient (BNVA) | payer MEDICARE, SELFPAY | PROVIDERS: PCP Physician Assistant; Visit Provider Internal Medicine | DX: I48.0 Paroxysmal atrial fibrillation (principal); Z79.01 Long term (current) use of anticoagulants; Z51.81 Encounter for therapeutic drug level monitoring | CPT/HCPCS: 85610; 99211 ==

== ENCOUNTER 2024-08-18 09:47 | Outpatient (AMB) | payer MEDICARE, SELFPAY ==
--- NOTE | 2024-08-18 09:58 | MHC.OFFVISCO ---
Intake Intake Visit Reasons: Anticoagulation Allergies latex [LATEX] Allergy (Intermediate, Verified 08/18/24 09:50) RASH GUILLERMO Inhibitors Allergy (Mild, Verified 08/18/24 09:50) cough varenicline [From Chantix] Allergy (Mild, Verified 08/18/24 09:50) hives rosuvastatin Adverse Reaction (Intermediate, Verified 08/18/24 09:50) Muscle Pain barium sulfate Adverse Reaction (Mild, Verified 08/18/24 09:50) burn on face nicotine Adverse Reaction (Mild, Verified 08/18/24 09:50) rash lisinopril Adverse Reaction (Verified 08/18/24 09:50) cough statins Allergy (Severe, Uncoded 08/18/24 09:50) edema seasonal Allergy (Mild, Uncoded 08/18/24 09:50) seasonal allergies watermelon rind Adverse Reaction (Intermediate, Uncoded 08/18/24 09:50) Cough Medication List - Last Reconciled 08/18/24 by Arianne Ritchie RN albuterol sulfate 90 mcg/actuation 2 inhalations inhalation Q6H PRN 30 days albuterol sulfate 2.5 mg (3 mL) inhalation Q4H 30 days amiodarone 100 mg PO DAILY baclofen 10 mg PO BID 90 days budesonide 0.5 mg (2 mL) inhalation BID [CANNIBIS TAKE 1 GUMMY PO Q AM AND Q PM ] cetirizine (Allergy Relief (cetirizine)) 10 mg PO DAILY denosumab (Prolia) 60 mg subcut [id number] diclofenac sodium 1% (Voltaren Arthritis Pain) 2 grams topical QID PRN diltiazem HCl CD 360 mg PO DAILY evolocumab (Repatha SureClick) 140 mg subcut Q2W 90 days furosemide 40 mg PO BID gabapentin 800 mg PO TID 30 days losartan 25 mg PO DAILY miscellaneous medical supply (Blood Pressure Cuff) As directed mupirocin 2% 1 appl topical TID mupirocin 2% 1 appl topical TID 30 days nebulizers As directed nystatin 1 appl topical DAILY 10 days omeprazole 20 mg PO DAILY Oxygen Home Use As directed potassium chloride ER (Klor-Con M) 10 mEq PO DAILY 90 days roflumilast 500 mcg PO DAILY 90 days warfarin 5 mg See Protocol PO DAILY 90 days Nursing Note INR: 2.2- in therapeutic range of 2-3 Medications and supplements reviewed- no changes No changes in health, diet, medications, or supplements, Denies any signs and symptoms of bleeding or bruising or clotting. 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
[2024-08-18 09:59] LABS: Prothrombin Time Whole Bld POC 26.4 sec (11.1-13.5); ~PT, ~INR - Anti Coag Clinic 2.2 (0.9-1.1)
== END 2024-08-18 10:41 | disposition home or self-care (01) ==
LOC: HO.ACS 09:47
PROVIDERS: PCP Physician Assistant; Visit Provider Internal Medicine
DX: Z79.01 Long term (current) use of anticoagulants (principal)

== ENCOUNTER → 2024-08-18 09:47 | Outpatient (BNVA) | payer MEDICARE, SELFPAY | PROVIDERS: PCP Physician Assistant; Visit Provider Internal Medicine | DX: I48.0 Paroxysmal atrial fibrillation (principal); Z79.01 Long term (current) use of anticoagulants; Z51.81 Encounter for therapeutic drug level monitoring | CPT/HCPCS: 85610; 99211 ==

== ENCOUNTER 2024-09-01 10:13 | Outpatient (REF) | payer MEDICARE, SELFPAY ==
--- NOTE | ~2024-09-01 | MM_ITS ---
EXAMINATION: BONE DENSITOMETRY CLINICAL INDICATION: Age-related osteoporosis without current pathological fracture. COMPARISON: Previous BD dated 01/03/2021 and baseline BD dated 07/26/2016. TECHNIQUE: Using a 91 Golf DXA System (software version: 13.1) manufactured by [employer], dual-energy x-ray absorptiometry was performed of the lumbar spine and left hip. The images are of good technical quality. Summary results are attached. FINDINGS: LEFT FEMUR, NECK: Current: BMD 0.742 g/cm2, Z-score -0.9, T-score -2.1, osteopenia. Prior: BMD 0.684 g/cm2. Baseline: BMD 0.745 g/cm2. LEFT FEMUR, TOTAL: Current: BMD 0.814 g/cm2, Z-score -0.6, T-score -1.5, osteopenia, 6.5% increase from previous, 1.9% increase from baseline (<5% change is not significant). Prior: BMD 0.764 g/cm2. Baseline: BMD 0.799 g/cm2. AP SPINE L2-L4 (excluding L1): The data of L1-L4 has been changed to exclude the L1 vertebral body, because significant degenerative changes at this level may cause overestimation of lumbar spine density. Current: BMD 0.925 g/cm2, Z-score -1.7, T-score -2.3, osteopenia, 16.4% increase from previous, 11.9% increase from baseline (<5% change is not significant). Prior: BMD 0.795 g/cm2. Baseline: BMD 0.827 g/cm2. IDENTIFIED RISK FACTORS: Menopause, rheumatoid arthritis, osteoporosis, glucocorticoids, history of fracture (adult). HISTORY OF FRACTURE: None listed. MEDICATIONS: Vitamin D, Prolia. MM/XR DEXA axial skeleton IMPRESSION: 1. DIAGNOSIS: Osteopenia based on the lowest T-score value of -2.3 in the lumbar spine applying World Health Organization criteria. 2. 10-YEAR FRACTURE RISK PREDICTION, FRAX: Not performed in this patient on estrogen or bone building treatments. 3. Treatment Recommendations: NOF guidelines recommend consideration for treatment in postmenopausal women and men age 50 and older presenting with the following: -A hip or vertebral (clinical or morphometric) fracture. -T-score less than or equal to -2.5 at the femoral neck or spine after appropriate evaluation to exclude secondary causes. -Low bone mass at the hip or spine and a 10-year fracture probability by FRAX of greater than or equal to 3% for hip fracture or greater than or equal to 20% for major osteoporotic fracture based on the [place] adapted WHO algorithm. 4. Other Recommendations: All treatment decisions require clinical judgment and consideration of individual patient factors, including patient preferences, comorbidities, previous drug use, risk factors not captured in the FRAX model (e.g. frailty, falls, vitamin D deficiency, increased bone turnover, interval significant decline in bone density) and possible under or overestimation of fracture risk by FRAX. Additional medical evaluation for secondary cause of low bone mineral density may be appropriate. FUTURE SCAN RECOMMENDATION: People with diagnosed cases of osteoporosis or at high risk for fracture should have regular bone mineral density tests. For patients eligible for Medicare, routine testing is allowed once every 2 years. The testing frequency can be increased to one year for patients who have rapidly progressing disease, those who are receiving or discontinuing medical therapy to restore bone mass, or have additional risk factors. Electronically signed by: Zackery Schmidt MD 09/01/2024 04:27 PM [facility]
== END 2024-09-01 10:14 | disposition home or self-care (01) ==
LOC: HO.MAMMO 10:13
PROVIDERS: PCP Physician Assistant; Visit Provider Student in an Organized Health Care Education/Training Program
DX: M81.0 Age-related osteoporosis without current pathological fracture (principal)
CPT/HCPCS: 77080

== ENCOUNTER 2024-09-15 10:10 | Outpatient (AMB) | payer MEDICARE, SELFPAY ==
--- NOTE | 2024-09-15 10:15 | MHC.OFFVISCO ---
Intake Intake Visit Reasons: Anticoagulation Allergies latex [LATEX] Allergy (Intermediate, Verified 09/15/24 10:11) RASH GUILLERMO Inhibitors Allergy (Mild, Verified 09/15/24 10:11) cough varenicline [From Chantix] Allergy (Mild, Verified 09/15/24 10:11) hives rosuvastatin Adverse Reaction (Intermediate, Verified 09/15/24 10:11) Muscle Pain barium sulfate Adverse Reaction (Mild, Verified 09/15/24 10:11) burn on face nicotine Adverse Reaction (Mild, Verified 09/15/24 10:11) rash lisinopril Adverse Reaction (Verified 09/15/24 10:11) cough statins Allergy (Severe, Uncoded 09/15/24 10:11) edema seasonal Allergy (Mild, Uncoded 09/15/24 10:11) seasonal allergies watermelon rind Adverse Reaction (Intermediate, Uncoded 09/15/24 10:11) Cough Medication List - Last Reconciled 09/15/24 by Arianne Ritchie RN albuterol sulfate 90 mcg/actuation 2 inhalations inhalation Q6H PRN 30 days albuterol sulfate 2.5 mg (3 mL) inhalation Q4H 30 days amiodarone 100 mg PO DAILY baclofen 10 mg PO BID 90 days budesonide 0.5 mg (2 mL) inhalation BID [CANNIBIS TAKE 1 GUMMY PO Q AM AND Q PM ] cetirizine (Allergy Relief (cetirizine)) 10 mg PO DAILY denosumab (Prolia) 60 mg subcut [id number] diclofenac sodium 1% (Voltaren Arthritis Pain) 2 grams topical QID PRN diltiazem HCl CD 360 mg PO DAILY evolocumab (Repatha SureClick) 140 mg subcut Q2W 90 days furosemide 40 mg PO BID gabapentin 800 mg PO TID losartan 25 mg PO DAILY miscellaneous medical supply (Blood Pressure Cuff) As directed mupirocin 2% 1 appl topical TID mupirocin 2% 1 appl topical TID 30 days nebulizers As directed nystatin 1 appl topical DAILY 10 days omeprazole 20 mg PO DAILY Oxygen Home Use As directed potassium chloride ER (Klor-Con M) 10 mEq PO DAILY 90 days roflumilast 500 mcg PO DAILY 90 days warfarin 5 mg See Protocol PO DAILY 90 days Nursing Note INR: 2.9- in therapeutic range 2-3 Medications and supplements reviewed No changes in health, diet, medications, or supplements, Denies any signs and symptoms of bleeding or bruising or clotting. Bleeding, bruising, clotting discussed Nutritional guidance given Dose: 5mg x 7 F/U INR: 4 weeks Patient verbalizes understanding of instructions given pt amb with walker, on cont oxygen, present for acs visit Anti-Coag Initial Assessment Social Hx Patient Tobacco Use Status: Former Tobacco user alcohol intake: current Alcohol intake frequency: holidays/special occasions only Coding Level of Care Code Est Patient Level 1 Diagnoses Current use of anticoagulant therapy Z79.01 Results AMB INR Fingerstick AMB INR Fingerstick 2.9 Last Edit by Arianne Ritchie RN on 09/15/24 10:18 interface delay Assessment & Plan Assessment & Plan (1) Current use of anticoagulant therapy: Code(s): 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
[2024-09-16 09:30] LABS: Prothrombin Time Whole Bld POC 35.1 sec (11.1-13.5); ~PT, ~INR - Anti Coag Clinic 2.9 (0.9-1.1)
== END 2024-09-15 10:24 | disposition home or self-care (01) ==
LOC: HO.ACS 10:10
PROVIDERS: PCP Physician Assistant; Visit Provider Internal Medicine
DX: Z79.01 Long term (current) use of anticoagulants (principal)

== ENCOUNTER → 2024-09-15 10:10 | Outpatient (BNVA) | payer MEDICARE, SELFPAY | PROVIDERS: PCP Physician Assistant; Visit Provider Internal Medicine | DX: I48.0 Paroxysmal atrial fibrillation (principal); Z79.01 Long term (current) use of anticoagulants; Z51.81 Encounter for therapeutic drug level monitoring; J41.0 Simple chronic bronchitis; J96.11 Chronic respiratory failure with hypoxia; G47.33 Obstructive sleep apnea (adult) (pediatric); K21.9 Gastro-esophageal reflux disease without esophagitis; Z99.89 Dependence on other enabling machines and devices | CPT/HCPCS: 85610; 99211; 99212 ==

== ENCOUNTER 2024-09-15 10:24 | Outpatient (AMB) | payer MEDICARE, SELFPAY ==
[2024-09-15 10:35] VITALS: BP 140/68; PULSE 93; O2SAT 93
--- NOTE | 2024-09-15 10:35 | A.OFFVIS_ITS ---
Vital Signs 09/15/24 10:35 BP 140/68 H Blood Pressure Location Rt brachial Position Sitting Pulse 93 Pulse Source Pulse Oximeter Pulse Oximetry (%) 93 Oxygen Delivery Method Nasal Cannula Intake Visit Reasons: Shortness of breath Allergies latex [LATEX] Allergy (Intermediate, Verified 09/15/24 10:41) RASH GUILLERMO Inhibitors Allergy (Mild, Verified 09/15/24 10:41) cough varenicline [From Chantix] Allergy (Mild, Verified 09/15/24 10:41) hives rosuvastatin Adverse Reaction (Intermediate, Verified 09/15/24 10:41) Muscle Pain barium sulfate Adverse Reaction (Mild, Verified 09/15/24 10:41) burn on face nicotine Adverse Reaction (Mild, Verified 09/15/24 10:41) rash lisinopril Adverse Reaction (Verified 09/15/24 10:41) cough statins Allergy (Severe, Uncoded 09/15/24 10:41) edema seasonal Allergy (Mild, Uncoded 09/15/24 10:41) seasonal allergies watermelon rind Adverse Reaction (Intermediate, Uncoded 09/15/24 10:41) Cough Medication List - Last Reconciled 09/15/24 by Aniyah Goldberg LPN albuterol sulfate 90 mcg/actuation 2 inhalations inhalation Q6H PRN 30 days albuterol sulfate 2.5 mg (3 mL) inhalation Q4H 30 days amiodarone 100 mg PO DAILY baclofen 10 mg PO BID 90 days budesonide 0.5 mg (2 mL) inhalation BID [CANNIBIS TAKE 1 GUMMY PO Q AM AND Q PM ] cetirizine (Allergy Relief (cetirizine)) 10 mg PO DAILY denosumab (Prolia) 60 mg subcut [id number] diltiazem HCl CD 360 mg PO DAILY evolocumab (Repatha SureClick) 140 mg subcut Q2W 90 days furosemide 40 mg PO BID gabapentin 800 mg PO TID losartan 25 mg PO DAILY miscellaneous medical supply (Blood Pressure Cuff) As directed mupirocin 2% 1 appl topical TID 30 days nebulizers As directed Oxygen Home Use As directed potassium chloride ER (Klor-Con M) 10 mEq PO DAILY 90 days roflumilast 500 mcg PO DAILY 90 days warfarin 5 mg See Protocol PO DAILY 90 days HPI Comments Details: The patient is a 73-year-old woman with a known history atrial fibrillation on Eliquis in addition to amiodarone 200 mg which she takes half a tab. Apparently she worsening respiratory symptoms was admitted to [facility] with acute on chronic hypercarbic and hypoxic respiratory failure. The patient has done well though now she is on oxygen. She quit smoking. We did look at the CT scan demonstrating some small areas of ground-glass opacities. However very limited. No evidence of any significant interstitial lung disease. However, we still have to monitor closely the use of the amiodarone. She still tapering down from the prednisone. Currently she is on 3 L nasal cannula. She does have some snoring at nighttime. She does have headaches in the morning. Headaches are better at this time. She has underlying daytime drowsiness. Her Walnut score is elevated 10/19. Sometimes she falls asleep at the dining room table. Patient has not a sleep study. Also, she had an echocardiogram demonstrating moderate pulmonary hypertension does also concerned and could be related to untreated sleep apnea. The patient also had pulmonary function studies demonstrating moderate obstructive ventilatory defect consistent with her degree of COPD. We did go for a walking oximetry. RA saturation 93%, desat to 88% with activity. 97% 2L at rest and maintained 95% on 2 Liters with activity. Pt needs to continue using oxygen. Needs a conserving device trial. 02/19/2023 the patient is here for pulmonary follow-up visit. Still complains of her dyspnea on exertion. Also complains that she still needs to be on the oxygen. She wishes to be off the oxygen a bit more. Unfortunately when she takes it off she does get short of breath very quickly. Usually last about 10 minutes. The patient also been having some chest congestion. She was also start Daliresp which has not started as of yet. I will send her prescription to her mail order in order for to started. She also start slowly to develop tolerance. She does continue to use his CPAP every night. CPAP therapy continues to be affecting beneficial. She has an old machine but is working well and I did suggest that she continue using that machine. Her mask is good fitting. 08/22/2023 the patient is here for a pulmonary follow-up visit. Overall the patient has been doing well from a respiratory status. She continues to have dyspnea on exertion mild to moderate severity. But overall better. She does use respiratory medications well. The medications are getting expensive. I did recommend she can decrease the Daliresp to every other day to see if this provides her with the benefits of the medication but does not cause her to go into the donut hole. The patient also had a CT scan of the abdomen. The lung bases are okay although she does have a right kidney lesion that needs to be further addressed with an MRI. She is concerned about this. In regards to the CPAP the CPAP therapy has been very affecting beneficial. She did come and she talk to our staff here and she found a better fitting mask and her machine is now adjusted and she is tolerating a perfect. Her AHI is not 0.4. She does use more than 4 hours a night in the therapy has been affecting beneficial in she will continue to use it at this time. 06/23/2024 the patient is here for a pulmonary follow-up visit. Overall she is doing fairly well. She does complaint of dyspnea on exertion. She has also felt that she has been holding her breath. Sometimes she feels some tension around her chest area. [id number] severity. She did have a chest x-ray which we personally reviewed. She is hyperinflated overall. Although it looks like her left hemidiaphragm is little higher up in does have some atelectasis in that area as well. She was supposed to start pulmonary rehabilitation but she was not able to do so because of scheduling. Therefore, I did provide with the online pulmonary rehabilitation that she can perform. I did ask her to work exercises. Also work on personally breathing. Will plan to repeat the chest x- ray in 3-4 months. If it continues to be abnormal will request a CT scan of the chest. She continues on the CPAP. The CPAP therapy continues to be affecting beneficial. She does use more than 4 hours a night. In addition to that she has been using the Daliresp that has been helpful but every other day because of the adverse effects. She continues with respiratory therapy with good compliance. She continues also using the oxygen. She has a little ulceration of her nares. I will give her additional antimicrobial ointment provide to the little ulceration. She knows to take breaks from the oxygen that will also help with an going to heating process. 09/15/2024 the patient is here for a pulmonary follow-up visit. She is having difficulty with her mask. Sometimes it comes loose and she starts leaking. And then she feels like she is more short of breath. She has gone up on her oxygen because she feels like she is not getting of oxygen. We did download her CPAP though it seems like the APAP is set up perfectly fine her AHI is below 1. She has had issues with air leakage when the mask is not on place. Currently she does like her F30 I mask. Seems to be the better once she has tried. She does have a small wide fitting. I did have a small 1 I would like her to try. If not we can switch her to a different mask but she does like that when particular design. Hopefully with a smaller mask she gets a better seal and she has less air leakage and she can not tolerated. Otherwise she continues with respiratory therapy with good effect. She is still short of breath. Although she does have multifactorial reasons to be short of breath. Makes work on deep breathing exercises. We did look at a chest x-ray that she had back in May demonstrating hypo expansion of the lungs and atelectasis because of the hyperexpansion. The patient does benefit from pulmonary rehabilitation. We had requested a before but it just was not the time. Will put another referral when for pulmonary rehabilitation at this time. [facility] Medical History COPD (chronic obstructive pulmonary disease) Atelectasis Acute and chronic respiratory failure Aortic aneurysm COPD (chronic obstructive pulmonary disease) Arthralgia NICM (nonischemic cardiomyopathy) Hyperlipidemia Arthropathy of cervical spine Cardiomyopathy Paroxysmal A-fib Abdominal pain Chronic respiratory failure CHRISTIANO on CPAP COPD (chronic obstructive pulmonary disease) Surgical History History of esophagogastroduodenoscopy (EGD) Hx of dilation and curettage Hx of cholecystectomy Hx of hysterectomy History of bilateral cataract extraction Trigger finger of thumb Family History Father CHF (congestive heart failure) PNA (pneumonia) Dementia Diabetes HTN (hypertension) Family history of diabetes mellitus Mother CHF (congestive heart failure) MRSA (methicillin resistant Staphylococcus aureus) Son Afib Son Psoriasis Arthritis Psoriatic arthritis Daughter Hypothyroid Fibromyalgia Brother No problems noted. Brother No problems noted. Sister No problems noted. Social History Household Members: Spouse and Children Household Members Other:: Daughter Amy, and Remy Housing: House Do you presently have visiting nurse or other home services: No Alcohol intake: current Alcohol intake frequency: holidays/special occasions only Alcohol type: beer and hard liquor Patient Tobacco Use Status: Former Tobacco user Years Smoked: 50yrs +/- e-Cigarette/Vaping Use: Never Used Second Hand Smoke Exposure: No Substance Use Type: Marijuana Advance Directives Date on File: 10/27/16 service: No Current occupational status: retired Cognitive needs: Yes (walker) Hearing needs: No Vision needs: Yes (glasses) Review of Systems Const Denies chills, Denies fatigue, Denies fever(s), Denies frequent falls, Denies weakness, Denies weight gain and Denies weight loss ENT Denies dizziness Card Denies chest pain, Denies leg edema, Denies lightheadedness, Denies palpitations, Denies dyspnea, Reports dyspnea on exertion, Denies orthopnea and Denies other (Loss of consciousness) Resp Reports cough, Denies dyspnea and Reports dyspnea on exertion GI Denies hematochezia and Denies change in bowel habits Musc Denies abnormal gait, Denies muscle weakness, Denies numbness, Denies radiating pain into limb and Denies tingling Neuro Denies abnormal gait, Denies dizziness, Denies frequent falls, Denies numbness, Denies tingling and Denies weakness Endo Denies fatigue and Denies palpitations Physical Exam Vital Signs: Last Vital Signs Pulse 93 09/15/24 10:35 BP 140/68 H 09/15/24 10:35 Pulse Ox 93 09/15/24 10:35 Oxygen Delivery Method Nasal Cannula 09/15/24 10:35 Const General: comfortable and no acute distress Orientation/consciousness: patient oriented x3 HEENT Other: Unremarkable Head: Yes normal to inspection Neck Neck: Yes normal visual inspection Chest Chest palpation & inspection: normal inspection of the chest Resp Auscultation: diminished lung sounds Cardio Palpation: normal PMI Heart sounds: S1 normal heart sound present, S2 normal heart sound present, no gallops, no murmurs and no rubs GI Palpation (GI): Soft to palpation Back/Spine/Pelvis Other: unremarkable Skin General skin exam: no rashes or lesions noted Neuro General: patient oriented x3 Extrem General: Yes normal to inspection Psych Mental Status: mental status grossly normal Results AMB INR Fingerstick AMB INR Fingerstick 2.9 Last Edit by Arianne Ritchie RN on 09/15/24 10:18 interface delay Assessment & Plan Assessment & Plan (1) COPD (chronic obstructive pulmonary disease): Code(s): J44.9 - Chronic obstructive pulmonary disease, unspecified Category: Medical Qualifiers: COPD type: chronic bronchitis Chronic bronchitis type: simple Qualified Code(s): J41.0 - Simple chronic bronchitis (2) GERD (gastroesophageal reflux disease): Code(s): K21.9 - Gastro-esophageal reflux disease without esophagitis Category: Medical Qualifiers: Esophagitis presence: without esophagitis Qualified Code(s): K21.9 - Gastro-esophageal reflux disease without esophagitis (3) CHRISTIANO on CPAP: Code(s): G47.33 - Obstructive sleep apnea (adult) (pediatric); Z99.89 - Dependence on other enabling machines and devices Category: Medical (4) COPD (chronic obstructive pulmonary disease): Code(s): J44.9 - Chronic obstructive pulmonary disease, unspecified Category: Medical Qualifiers: COPD type: emphysema Emphysema type: centrilobular Qualified Code(s): J43.2 - Centrilobular emphysema (5) Chronic respiratory failure: Code(s): J96.10 - Chronic respiratory failure, unspecified whether with hypoxia or hypercapnia Category: Medical Qualifiers: Respiratory failure complication: hypoxia Qualified Code(s): J96.11 - Chronic respiratory failure with hypoxia (6) COPD (chronic obstructive pulmonary disease): Code(s): J44.9 - Chronic obstructive pulmonary disease, unspecified Category: Medical Qualifiers: COPD type: emphysema Emphysema type: centrilobular Qualified Code(s): J43.2 - Centrilobular emphysema Plan continuie budesonide to once day Daliresp 500mcg daily (ok every other day) continue DuoNeb twice a day and as needed WILLIAN as needed continue allergy medicine: zyrtec reflux diet continue PPI continue CPAP therapy. AHI .8, will try small mask for F30, consider f40 if not CXR in 3-4 months, if abnormal then CT chest pulmonary rehab F/U 3-4 months Orders: Orders Pulmonary Rehab Today J43.2 - Centrilobular emphysema Coding Level of Care Code Est Pt Level 4 (36054) Complex EM visit Add On G2211 Diagnoses Simple chronic bronchitis J41.0 COPD type: chronic bronchitis Chronic bronchitis type: simple Gastroesophageal reflux disease without esophagitis K21.9 Esophagitis presence: without esophagitis CHRISTIANO on CPAP G47.33; Z99.89 Chronic respiratory failure with hypoxia J96.11 Respiratory failure complication: hypoxia Time Spent (min) 17
== END 2024-09-15 11:05 | disposition home or self-care (01) ==
PROVIDERS: PCP Physician Assistant; Visit Provider Hospitalist
DX: J41.0 Simple chronic bronchitis (principal); K21.9 Gastro-esophageal reflux disease without esophagitis; G47.33 Obstructive sleep apnea (adult) (pediatric); Z99.89 Dependence on other enabling machines and devices; J96.11 Chronic respiratory failure with hypoxia; J43.2 Centrilobular emphysema
CPT/HCPCS: 99214; G2211

== ENCOUNTER 2024-10-13 09:17 | Outpatient (AMB) | payer MEDICARE, SELFPAY ==
[2024-10-13 09:28] LABS: Prothrombin Time Whole Bld POC 28.5 sec (11.1-13.5); ~PT, ~INR - Anti Coag Clinic 2.4 (0.9-1.1)
--- NOTE | 2024-10-13 09:36 | MHC.OFFVISCO ---
Intake Intake Visit Reasons: Anticoagulation Allergies latex [LATEX] Allergy (Intermediate, Verified 10/13/24 09:20) RASH GUILLERMO Inhibitors Allergy (Mild, Verified 10/13/24 09:20) cough varenicline [From Chantix] Allergy (Mild, Verified 10/13/24 09:20) hives rosuvastatin Adverse Reaction (Intermediate, Verified 10/13/24 09:20) Muscle Pain barium sulfate Adverse Reaction (Mild, Verified 10/13/24 09:20) burn on face nicotine Adverse Reaction (Mild, Verified 10/13/24 09:20) rash lisinopril Adverse Reaction (Verified 10/13/24 09:20) cough statins Allergy (Severe, Uncoded 09/15/24 10:41) edema seasonal Allergy (Mild, Uncoded 09/15/24 10:41) seasonal allergies watermelon rind Adverse Reaction (Intermediate, Uncoded 09/15/24 10:41) Cough Medication List - Last Reconciled 10/13/24 by Charity Cintron RN albuterol sulfate 90 mcg/actuation 2 puffs PO Q6H PRN albuterol sulfate 2.5 mg (3 mL) inhalation Q4H 30 days amiodarone 100 mg PO DAILY baclofen 10 mg PO BID 90 days budesonide 0.5 mg (2 mL) inhalation BID [CANNIBIS TAKE 1 GUMMY PO Q AM AND Q PM ] cetirizine (Allergy Relief (cetirizine)) 10 mg PO DAILY denosumab (Prolia) 60 mg subcut [id number] diltiazem HCl CD 360 mg PO DAILY evolocumab (Repatha SureClick) 140 mg subcut Q2W 90 days furosemide 40 mg PO BID gabapentin 800 mg PO TID losartan 25 mg PO DAILY miscellaneous medical supply (Blood Pressure Cuff) As directed mupirocin 2% 1 appl topical TID 30 days nebulizers As directed Oxygen Home Use As directed potassium chloride ER (Klor-Con M) 10 mEq PO DAILY 90 days roflumilast 500 mcg PO DAILY 90 days warfarin 5 mg See Protocol PO DAILY 90 days Nursing Note NO CP,SOB,DIET/MED CHANGES,FALLS OR SX OF BLEEDING. CONTINUE 5MGM DAILY AND FOLLOW-UP IN 4 WEEKS. GOOD UNDERSTANDINBG OF DOSING INSTR. Anti-Coag Initial Assessment Social Hx Patient Tobacco Use Status: Former Tobacco user alcohol intake: current Alcohol intake frequency: holidays/special occasions only Coding Level of Care Code Est Patient Level 1 Diagnoses Current use of anticoagulant therapy Z79.01 Assessment & Plan Assessment & Plan (1) Current use of anticoagulant therapy: Code(s): Z79.01 - technician terminal and repeater (current) use of anticoagulants Category: Medical
== END 2024-10-13 09:37 | disposition home or self-care (01) ==
LOC: HO.ACS 09:17
PROVIDERS: PCP Physician Assistant; Visit Provider Internal Medicine
DX: Z79.01 Long term (current) use of anticoagulants (principal)

== ENCOUNTER → 2024-10-13 09:17 | Outpatient (BNVA) | payer MEDICARE, SELFPAY | PROVIDERS: PCP Physician Assistant; Visit Provider Internal Medicine | DX: I48.0 Paroxysmal atrial fibrillation (principal); Z79.01 Long term (current) use of anticoagulants; Z51.81 Encounter for therapeutic drug level monitoring | CPT/HCPCS: 85610; 99211 ==

== ENCOUNTER 2024-10-18 08:05 | Outpatient (REF) | payer MEDICARE, SELFPAY ==
[2024-10-18 10:49] LABS: MANUAL DIFF FLAG NO
[2024-10-18 10:52] LABS: Basophils Percent Auto 0.5 % (0-2); Eosinophils Absolute Auto 0.2 X10*3/uL (0.0-0.4); Eosinophils Percent Auto 3.2 % (0-4); Hematocrit 40.6 % (37.0-47.0); Hemoglobin 13.3 g/dl (12.0-16.0); Imm Gran Abs Auto 0.05 X10*3/uL (0.00-0.03); Imm Gran Pct Auto 0.8 % (0.0-0.4); Lymphocytes Absolute Auto 1.7 X10*3/uL (1.2-4.9); Lymphocytes Percent Auto 27.5 % (20-40); Mean Corpuscular HGB Conc 32.8 g/dl (31.0-35.0); Mean Corpuscular Hemoglobin 31.1 pg (27.0-33.0); Mean Corpuscular Volume 94.9 fL (80.0-98.0); Mean Platelet Volume 9.3 fL (9.4-12.3); Monocytes Absolute Auto 0.5 X10*3/uL (0.1-1.2); Monocytes Percent Auto 7.6 % (2-11); Neutrophils Absolute Auto 3.8 x10*3/uL (2.0-8.3); Neutrophils Percent Auto 60.4 % (45-73); Platelet Count 351 X10*3/uL (160-400); Red Blood Count 4.28 X10*6/uL (4.20-5.50); Red Cell Distribution Width 13.3 % (11.0-16.0); White Blood Count 6.2 X10*3/uL (4.8-10.8)
[2024-10-18 11:10] LABS: Alanine Aminotransferase 17 U/L (0-31); Alkaline Phosphatase 95 U/L (39-117); Anion Gap 14 (12-20); Aspartate Amino Transferase 23 U/L (5-31); Bilirubin Total 0.5 mg/dL (0.0-1.0); Blood Urea Nitrogen 18 mg/dL (9-16); C Reactive Protein 1.84 mg/dL (< or = 0.50); Calcium 9.8 mg/dL (8.4-10.2); Carbon Dioxide 36 mmol/L (22-29); Chloride 98 mmol/L (96-108); Estimated Glomerular Filt Rate 43; Glucose Random 99 mg/dL (60-115); Potassium 3.5 mmol/L (3.3-5.1); Sodium 144 mmol/L (135-145); Total Protein 7.5 g/dL (6.5-8.0)
[2024-10-18 11:28] LABS: Erythrocyte Sedimentation Rate 78 MM/HR (0-20)
[2024-10-18 11:35] LABS: HBc Num1 0.24 S/CO (0.00-0.79); HBsAGNum1 0.34 S/CO (0.00-0.99); Hepatitis A Antibody IgM 0.14 Index (0-0.79); Hepatitis B Core Antibody Nonreactive (Nonreactive); Hepatitis B Surface Antigen Negative (Negative); ~HepC Num1 0.11 S/CO (0.00-0.79); ~Hepatitis A Antibody IgM Nonreactive (Nonreactive); ~Hepatitis B Surface Antibody NONREACTIVE (Nonreactive); ~Hepatitis C Antibody Nonreactive (Nonreactive)
[2024-10-21 01:54] LABS: TS Negative Control Passed; TS Panel A 1; TS Panel B 0; TS Positive Control Passed; TSpotTB Negative (Negative)
[2024-10-21 21:53] LABS: HLA B27 Negative (Negative)
[2024-10-22 13:38] LABS: Vitamin D 25-OH, D2 <4 ng/mL; Vitamin D 25-OH, D3 32 ng/mL; Vitamin D 25-OH, Total 32 ng/mL (30-100)
== END 2024-10-18 08:06 | disposition home or self-care (01) ==
LOC: HO.HMGCLDS 08:05
PROVIDERS: PCP Physician Assistant; Visit Provider Student in an Organized Health Care Education/Training Program
DX: M19.90 Unspecified osteoarthritis, unspecified site (principal); Z11.7 Encounter for testing for latent tuberculosis infection; M45.9 Ankylosing spondylitis of unspecified sites in spine; E55.9 Vitamin D deficiency, unspecified
CPT/HCPCS: 36415; 80053; 82306; 85025; 85652; 86140; 86481; 86704; 86706; 86709; 86803; 86812; 87340

== ENCOUNTER 2024-10-25 10:16 | Outpatient (AMB) | payer MEDICARE, SELFPAY ==
--- NOTE | 2024-10-25 10:22 | A.OFFVIS_ITS ---
Vital Signs 10/25/24 10:26 Height 5 ft 4.5 in Weight 250 lb 7.122 oz BMI 42.3 BP 112/70 Blood Pressure Location Lt brachial Position Sitting Pulse 91 Pulse Source Pulse Oximeter Pulse Oximetry (%) 94 Oxygen Delivery Method Nasal Cannula Intake Visit Reasons: Osteoporosis/prolia Intake Note: Patient presents for Osteoporosis/Prolia injection. Allergies latex [LATEX] Allergy (Intermediate, Verified 10/25/24 10:25) RASH GUILLERMO Inhibitors Allergy (Mild, Verified 10/25/24 10:25) cough varenicline [From Chantix] Allergy (Mild, Verified 10/25/24 10:25) hives rosuvastatin Adverse Reaction (Intermediate, Verified 10/25/24 10:25) Muscle Pain barium sulfate Adverse Reaction (Mild, Verified 10/25/24 10:25) burn on face nicotine Adverse Reaction (Mild, Verified 10/25/24 10:25) rash lisinopril Adverse Reaction (Verified 10/25/24 10:25) cough statins Allergy (Severe, Uncoded 09/15/24 10:41) edema seasonal Allergy (Mild, Uncoded 09/15/24 10:41) seasonal allergies watermelon rind Adverse Reaction (Intermediate, Uncoded 09/15/24 10:41) Cough Medication List - Last Reconciled 10/25/24 by Dru Larios MD albuterol sulfate 90 mcg/actuation 2 puffs PO Q6H PRN albuterol sulfate 2.5 mg (3 mL) inhalation Q4H 30 days amiodarone 100 mg PO DAILY baclofen 10 mg PO BID 90 days budesonide 0.5 mg (2 mL) inhalation BID [CANNIBIS TAKE 1 GUMMY PO Q AM AND Q PM ] cetirizine (Allergy Relief (cetirizine)) 10 mg PO DAILY denosumab (Prolia) 60 mg subcut [id number] diltiazem HCl CD 360 mg PO DAILY evolocumab (Repatha SureClick) 140 mg subcut Q2W 90 days furosemide 40 mg PO BID gabapentin 800 mg PO TID losartan 25 mg PO DAILY miscellaneous medical supply (Blood Pressure Cuff) As directed mupirocin 2% 1 appl topical TID 30 days nebulizers As directed Oxygen Home Use As directed potassium chloride ER (Klor-Con M) 10 mEq PO DAILY 90 days roflumilast 500 mcg PO DAILY 90 days warfarin 5 mg See Protocol PO DAILY 90 days HPI Comments Details: This is a 73-year-old female with osteoporosis who presents for follow-up. She is also here for her Prolia injection. She states that she continues to have low back pain. She had a nerve ablation procedure by Dr. Anders last year and it did help, she continues to have intermittent muscle spasms. She denies any joint swelling PFSH Medical History COPD (chronic obstructive pulmonary disease) Atelectasis Acute and chronic respiratory failure Aortic aneurysm COPD (chronic obstructive pulmonary disease) Arthralgia NICM (nonischemic cardiomyopathy) Hyperlipidemia Arthropathy of cervical spine Cardiomyopathy Paroxysmal A-fib Abdominal pain Chronic respiratory failure CHRISTIANO on CPAP COPD (chronic obstructive pulmonary disease) Surgical History History of esophagogastroduodenoscopy (EGD) Hx of dilation and curettage Hx of cholecystectomy Hx of hysterectomy History of bilateral cataract extraction Trigger finger of thumb Family History Father CHF (congestive heart failure) PNA (pneumonia) Dementia Diabetes HTN (hypertension) Family history of diabetes mellitus Mother CHF (congestive heart failure) MRSA (methicillin resistant Staphylococcus aureus) Son Afib Son Psoriasis Arthritis Psoriatic arthritis Daughter Hypothyroid Fibromyalgia Brother No problems noted. Brother No problems noted. Sister No problems noted. Social History Household Members: Spouse and Children Household Members Other:: Daughter Amy, and Remy Housing: House Do you presently have visiting nurse or other home services: No Alcohol intake: current Alcohol intake frequency: holidays/special occasions only Alcohol type: beer and hard liquor Patient Tobacco Use Status: Former Tobacco user Years Smoked: 50yrs +/- e-Cigarette/Vaping Use: Never Used Second Hand Smoke Exposure: No Substance Use Type: Marijuana Advance Directives Date on File: 10/27/16 service: No Current occupational status: retired Cognitive needs: Yes (walker) Hearing needs: No Vision needs: Yes (glasses) Review of Systems Musc Details: Muscle spasms Reports back pain, Reports myalgias and Reports arthralgias Physical Exam Vital Signs: Last Vital Signs Pulse 91 10/25/24 10:26 BP 112/70 10/25/24 10:26 Pulse Ox 94 10/25/24 10:26 Oxygen Delivery Method Nasal Cannula 10/25/24 10:26 BMI result Body Mass Index 42.3 Const General: cooperative Nutritional Appearance: obese morbidly obese Orientation/consciousness: patient oriented x3 Limitations: ambulation with walker HEENT Head: Yes normocephalic and Yes atraumatic Resp Other: On 2 L of oxygen by nasal cannula Effort & Inspection: normal respiratory effort and able to speak in complete sentences Cardio Rate: regular rate Neuro General: patient oriented x3 Extrem Other: Left shoulder crepitus with range of motion Positive empty can test on the left negative rotator cuff provocative maneuvers bilaterally otherwise Negative Speed's test bilaterally Intermittent generalized muscle spasms Office Meds Prolia 60 mg/mL subcutaneous syringe Performing Provider: Dru Larios MD Performing Location: [facility] Rheumatology Administered by: Serenity Smith RN on 10/25/24 10:36 Dose Route Admin Location Dispensed Lot Number Expiration Date [facility] [employer] 60 mg subcut right upper arm 1 mL [id number] 04/25/27 40559-033-42 [facility] Comments: Consent form signed by patient. Pt tolerated injection well and denies any problems with previous injections. Assessment & Plan Assessment & Plan (1) Osteoporosis: Comment: Started on Prolia 03/15/2021 - present Code(s): M81.0 - Age-related osteoporosis without current pathological fracture Category: Medical Qualifiers: Osteoporosis type: age-related Presence of current pathological fracture: without current pathological fracture Qualified Code(s): M81.0 - Age-related osteoporosis without current pathological fracture Plan: Bone density significantly improving on Prolia. Patient received Prolia injection in clinic today. Continue with Prolia q.6 months Vitamin-D level is not optimal. Patient states that she is not compliant with it. Advised patient to take it daily Check vitamin-D level before next visit (2) Polymyalgia rheumatica: Comment: Diagnosed 01/13/2021-off prednisone since February 2022-no return of PMR symptoms Code(s): M35.3 - Polymyalgia rheumatica Category: Medical Plan: This is a 72-year-old female with history of PMR who presents for follow-up. She has been off prednisone since February of 2022. She has had high inflammatory markers chronically. Patient continues to get intermittent abrupt onset of monoarticular arthritis and sometimes oligoarticular arthritis. 02/2024 she presented with abrupt onset of left bicipital tendonitis that was unprovoked, this was treated with a cortisone injection. Her daughter has RA. Patient likely has an underlying seronegative inflammatory arthritis. Numerous DMARDs would be relatively contraindicated due to her multiple comorbidities, increased risk of infection and multiple medication interactions. At this time, the attacks are very few and far in between. We will continue to monitor patient. If patient's symptoms worsen, can consider adding a mild DMARDs such as sulfasalazine, hydroxychloroquine or minocycline Plan I spent 26 minutes reviewing patient's chart, evaluating patient, ordering diagnostic workup, counseling patient and documenting in the chart Orders: Orders AMB Denosumab Injection Practice Supplied Today M81.0 - Age-related osteoporosis without current pathological fracture Complete Blood Count Auto Diff 6 Months M35.3 - Polymyalgia rheumatica Erythrocyte Sedimentation Rate 6 Months M35.3 - Polymyalgia rheumatica Vitamin D 25-OH Total 6 Months E55.9 - Vitamin D deficiency, unspecified Comprehensive Met. Panel 6 Months M35.3 - Polymyalgia rheumatica C Reactive Protein 6 Months M35.3 - Polymyalgia rheumatica Coding Level of Care Code Est Pt Level 4 (56032) Diagnoses Age-related osteoporosis without current pathological fracture M81.0 Osteoporosis type: age-related Presence of current pathological fracture: without current pathological fracture Polymyalgia rheumatica M35.3
[2024-10-25 10:26] VITALS: BP 112/70; PULSE 91; O2SAT 94; BMI 42.3
== END 2024-10-25 10:55 | disposition home or self-care (01) ==
PROVIDERS: PCP Physician Assistant; Visit Provider Student in an Organized Health Care Education/Training Program
DX: M81.0 Age-related osteoporosis without current pathological fracture (principal); M35.3 Polymyalgia rheumatica
CPT/HCPCS: 99214

== ENCOUNTER → 2024-10-25 10:16 | Outpatient (BNVA) | payer MEDICARE, SELFPAY | PROVIDERS: PCP Physician Assistant; Visit Provider Student in an Organized Health Care Education/Training Program | DX: M81.0 Age-related osteoporosis without current pathological fracture (principal); M35.3 Polymyalgia rheumatica | CPT/HCPCS: 96372; 99212; J0897 ==

== ENCOUNTER 2024-11-10 09:18 | Outpatient (AMB) | payer MEDICARE, SELFPAY ==
[2024-11-10 09:22] VITALS: BP 134/72; PULSE 81; BMI 42.8
--- NOTE | 2024-11-10 09:22 | A.OFFVIS_ITS ---
Vital Signs 11/10/24 09:22 Height 5 ft 4.5 in Weight 253 lb 8.505 oz BMI 42.8 BP 134/72 Blood Pressure Location Lt brachial Position Sitting Pulse 81 Intake Visit Reasons: 6 mth f/p Shipping Order Clerk Required: No Accompanied by: Self / Same As Patient Allergies latex [LATEX] Allergy (Intermediate, Verified 10/25/24 10:25) RASH GUILLERMO Inhibitors Allergy (Mild, Verified 10/25/24 10:25) cough varenicline [From Chantix] Allergy (Mild, Verified 10/25/24 10:25) hives rosuvastatin Adverse Reaction (Intermediate, Verified 10/25/24 10:25) Muscle Pain barium sulfate Adverse Reaction (Mild, Verified 10/25/24 10:25) burn on face nicotine Adverse Reaction (Mild, Verified 10/25/24 10:25) rash lisinopril Adverse Reaction (Verified 10/25/24 10:25) cough statins Allergy (Severe, Uncoded 09/15/24 10:41) edema seasonal Allergy (Mild, Uncoded 09/15/24 10:41) seasonal allergies watermelon rind Adverse Reaction (Intermediate, Uncoded 09/15/24 10:41) Cough Medication List - Last Reconciled 11/10/24 by Liang Larios MD albuterol sulfate 90 mcg/actuation 2 puffs PO Q6H PRN albuterol sulfate 2.5 mg (3 mL) inhalation Q4H 30 days amiodarone 100 mg PO DAILY baclofen 10 mg PO BID 90 days budesonide 0.5 mg (2 mL) inhalation BID [CANNIBIS TAKE 1 GUMMY PO Q AM AND Q PM ] cetirizine (Allergy Relief (cetirizine)) 10 mg PO DAILY denosumab (Prolia) 60 mg subcut [id number] diltiazem HCl CD 360 mg PO DAILY evolocumab (Repatha SureClick) 140 mg subcut Q2W 90 days furosemide 40 mg PO BID gabapentin 800 mg PO TID losartan 25 mg PO DAILY miscellaneous medical supply (Blood Pressure Cuff) As directed mupirocin 2% 1 appl topical TID 30 days nebulizers As directed Oxygen Home Use As directed potassium chloride ER (Klor-Con M) 10 mEq PO DAILY 90 days roflumilast 500 mcg PO DAILY 90 days warfarin 5 mg See Protocol PO DAILY 90 days HPI Comments Details: Huma returns for follow-up regarding atrial fibrillation and cardiomyopathy. Chronic shortness of breath related to pulmonary issues. She is also on supplemental oxygen. No cardiac symptoms per se. No angina. No clear palpitations. Otherwise, seems to be getting along okay. [facility] Medical History COPD (chronic obstructive pulmonary disease) Atelectasis Acute and chronic respiratory failure Aortic aneurysm COPD (chronic obstructive pulmonary disease) Arthralgia NICM (nonischemic cardiomyopathy) Hyperlipidemia Arthropathy of cervical spine Cardiomyopathy Paroxysmal A-fib Abdominal pain Chronic respiratory failure CHRISTIANO on CPAP COPD (chronic obstructive pulmonary disease) Surgical History History of esophagogastroduodenoscopy (EGD) Hx of dilation and curettage Hx of cholecystectomy Hx of hysterectomy History of bilateral cataract extraction Trigger finger of thumb Family History Father CHF (congestive heart failure) PNA (pneumonia) Dementia Diabetes HTN (hypertension) Family history of diabetes mellitus Mother CHF (congestive heart failure) MRSA (methicillin resistant Staphylococcus aureus) Son Afib Son Psoriasis Arthritis Psoriatic arthritis Daughter Hypothyroid Fibromyalgia Brother No problems noted. Brother No problems noted. Sister No problems noted. Social History Household Members: Spouse and Children Household Members Other:: Daughter Amy, and Remy Housing: House Do you presently have visiting nurse or other home services: No Alcohol intake: current Alcohol intake frequency: holidays/special occasions only Alcohol type: beer and hard liquor Patient Tobacco Use Status: Former Tobacco user Years Smoked: 50yrs +/- e-Cigarette/Vaping Use: Never Used Second Hand Smoke Exposure: No Substance Use Type: Marijuana Advance Directives Date on File: 10/27/16 service: No Current occupational status: retired Cognitive needs: Yes (walker) Hearing needs: No Vision needs: Yes (glasses) Review of Systems Const Denies chills, Denies fatigue, Denies fever(s), Denies weight gain and Denies weight loss ENT Denies dizziness Card Denies chest pain, Denies leg edema, Denies lightheadedness, Denies palpitations, Denies dyspnea on exertion, Denies orthopnea and Denies other Resp Denies cough and Denies dyspnea on exertion GI Denies hematochezia and Denies change in stool character Musc Denies abnormal gait, Denies muscle weakness, Denies numbness, Denies radiating pain into limb and Denies tingling Neuro Denies abnormal gait, Denies dizziness, Denies numbness and Denies tingling Endo Denies fatigue and Denies palpitations Physical Exam Vital Signs: Last Vital Signs Pulse 81 11/10/24 09:22 BP 134/72 11/10/24 09:22 BMI result Body Mass Index 42.8 Const General: comfortable and no acute distress Orientation/consciousness: patient oriented x3 HEENT Other: Unremarkable Head: Yes normal to inspection Neck Neck: Yes normal visual inspection Chest Chest palpation & inspection: normal inspection of the chest Resp Auscultation: clear to auscultation bilaterally Cardio Palpation: normal PMI Heart sounds: S1 normal heart sound present, S2 normal heart sound present, no gallops, no murmurs and no rubs GI Palpation (GI): Soft to palpation Back/Spine/Pelvis Other: unremarkable Skin General skin exam: no rashes or lesions noted Neuro General: patient oriented x3 Extrem General: Yes normal to inspection Psych Mental Status: mental status grossly normal Office Procedures EKG Details: EKG with underlying sinus rhythm at 81/Min; HI prolongation to 202 milliseconds; corrected QT is 492 milliseconds. No ischemic findings. [id number], Complete Assessment & Plan Assessment & Plan (1) Paroxysmal A-fib: Code(s): I48.0 - Paroxysmal atrial fibrillation Category: Medical Plan: On low-dose amiodarone and diltiazem. Recheck thyroid function. Ordered last time but not performed. Reordered. Chest CT in the past shows no evidence of interstitial lung disease. May continue to follow-up with Dr. Corona. (2) NICM (nonischemic cardiomyopathy): Code(s): I42.8 - Other cardiomyopathies Category: Medical Plan: Last echocardiogram with LVEF of 60-65%. In the past, has been as low as 35- 40%. Clinically, no heart failure symptoms. (3) Atherosclerotic cardiovascular disease: Code(s): I25.10 - Atherosclerotic heart disease of [place] coronary artery without angina pectoris Category: Medical Plan: Chest CT scan shows coronary artery calcifications. However, she does not have any angina whatsoever. In 2017, she had perfusion imaging. Suspected artifact or nontransmural infarct with fixed defect at the apical inferior wall and apical anterior septum. She is statin intolerant. She is on Repatha but she states that she can not t alicia them every 2 weeks as it is too expensive. Hence she takes them in longer intervals as much as she can afford. Lipids to be rechecked. (4) CHRISTIANO on CPAP: Code(s): G47.33 - Obstructive sleep apnea (adult) (pediatric); Z99.89 - Dependence on other enabling machines and devices Category: Medical Plan: Continue CPAP. (5) Encounter for monitoring amiodarone therapy: Code(s): Z51.81 - Encounter for therapeutic drug level monitoring; Z79.899 - Other residential (current) drug therapy Category: Medical Plan: Check TSH. Pulmonary status followed by Dr. Corona. Orders: Orders Lipid Panel Today E78.5 - Hyperlipidemia, unspecified TSH reflex Free T4 Today R94.6 - Abnormal results of thyroid function studies, Z51.81 - Encounter for therapeutic drug level monitoring, Z79.899 - Other long term care phlebotomist (current) drug therapy Coding Level of Care Code Est Pt Level 4 (53120) Diagnoses Paroxysmal A-fib I48.0 NICM (nonischemic cardiomyopathy) I42.8 Atherosclerotic cardiovascular disease I25.10 CHRISTIANO on CPAP G47.33; Z99.89 Encounter for monitoring amiodarone therapy Z51.81; Z79.899 CPT Codes EKG - CPT: 45612-[id number], Complete ([id number])
== END 2024-11-10 09:51 | disposition home or self-care (01) ==
PROVIDERS: PCP Physician Assistant; Visit Provider Internal Medicine
DX: I48.0 Paroxysmal atrial fibrillation (principal); I42.8 Other cardiomyopathies; I25.10 Atherosclerotic heart disease of native coronary artery without angina pectoris; G47.33 Obstructive sleep apnea (adult) (pediatric); Z99.89 Dependence on other enabling machines and devices; Z51.81 Encounter for therapeutic drug level monitoring; Z79.899 Other long term (current) drug therapy
CPT/HCPCS: 93010; 99214

== ENCOUNTER → 2024-11-10 09:18 | Outpatient (BNVA) | payer MEDICARE, SELFPAY | PROVIDERS: PCP Physician Assistant; Visit Provider Internal Medicine | DX: I48.0 Paroxysmal atrial fibrillation (principal); I42.8 Other cardiomyopathies; I25.10 Atherosclerotic heart disease of native coronary artery without angina pectoris; G47.33 Obstructive sleep apnea (adult) (pediatric); E78.5 Hyperlipidemia, unspecified; R94.6 Abnormal results of thyroid function studies; Z51.81 Encounter for therapeutic drug level monitoring; Z99.89 Dependence on other enabling machines and devices; Z79.01 Long term (current) use of anticoagulants; Z79.899 Other long term (current) drug therapy | CPT/HCPCS: 85610; 93005; 99211; 99212 ==

== ENCOUNTER 2024-11-10 09:56 | Outpatient (AMB) | payer MEDICARE, SELFPAY ==
--- NOTE | 2024-11-10 10:13 | MHC.OFFVISCO ---
Intake Intake Visit Reasons: Anticoagulation Allergies latex [LATEX] Allergy (Intermediate, Verified 11/10/24 10:09) RASH GUILLERMO Inhibitors Allergy (Mild, Verified 11/10/24 10:09) cough varenicline [From Chantix] Allergy (Mild, Verified 11/10/24 10:09) hives rosuvastatin Adverse Reaction (Intermediate, Verified 11/10/24 10:09) Muscle Pain barium sulfate Adverse Reaction (Mild, Verified 11/10/24 10:09) burn on face nicotine Adverse Reaction (Mild, Verified 11/10/24 10:09) rash lisinopril Adverse Reaction (Verified 11/10/24 10:09) cough statins Allergy (Severe, Uncoded 11/10/24 10:09) edema seasonal Allergy (Mild, Uncoded 11/10/24 10:09) seasonal allergies watermelon rind Adverse Reaction (Intermediate, Uncoded 11/10/24 10:09) Cough Medication List - Last Reconciled 11/10/24 by Arianne Ritchie RN albuterol sulfate 90 mcg/actuation 2 puffs PO Q6H PRN albuterol sulfate 2.5 mg (3 mL) inhalation Q4H 30 days amiodarone 100 mg PO DAILY baclofen 10 mg PO BID 90 days budesonide 0.5 mg (2 mL) inhalation BID [CANNIBIS TAKE 1 GUMMY PO Q AM AND Q PM ] cetirizine (Allergy Relief (cetirizine)) 10 mg PO DAILY denosumab (Prolia) 60 mg subcut [id number] diltiazem HCl CD 360 mg PO DAILY evolocumab (Repatha SureClick) 140 mg subcut Q2W 90 days furosemide 40 mg PO BID gabapentin 800 mg PO TID losartan 25 mg PO DAILY miscellaneous medical supply (Blood Pressure Cuff) As directed mupirocin 2% 1 appl topical TID 30 days nebulizers As directed Oxygen Home Use As directed potassium chloride ER (Klor-Con M) 10 mEq PO DAILY 90 days roflumilast 500 mcg PO DAILY 90 days warfarin 5 mg See Protocol PO DAILY 90 days Nursing Note INR: 2.5- in therapeutic range of 2-3 Medications and supplements reviewed- no changes No changes in health, diet, medications, or supplements, Denies any signs and symptoms of bleeding or bruising or clotting. Bleeding, bruising, clotting discussed Nutritional guidance given Dose: 5mg x 7 F/U INR: 4 weeks Patient verbalizes understanding of instructions given Anti-Coag Initial Assessment Social Hx Patient Tobacco Use Status: Former Tobacco user alcohol intake: current Alcohol intake frequency: holidays/special occasions only Coding Level of Care Code Est Patient Level 1 Diagnoses Current use of anticoagulant therapy Z79.01 Results AMB INR Fingerstick AMB INR Fingerstick 2.5 Last Edit by Arianne Ritchie RN on 11/10/24 10:15 interface delay Assessment & Plan Assessment & Plan (1) Current use of anticoagulant therapy: Code(s): Z79.01 - alf (current) use of anticoagulants Category: Medical
[2024-11-11 08:00] LABS: Prothrombin Time Whole Bld POC 29.6 sec (11.1-13.5); ~PT, ~INR - Anti Coag Clinic 2.5 (0.9-1.1)
== END 2024-11-10 10:21 | disposition home or self-care (01) ==
LOC: HO.ACS 09:56
PROVIDERS: PCP Physician Assistant; Visit Provider Internal Medicine
DX: Z79.01 Long term (current) use of anticoagulants (principal)

== ENCOUNTER 2024-12-08 09:46 | Outpatient (AMB) | payer MEDICARE, SELFPAY ==
[2024-12-08 10:01] LABS: Prothrombin Time Whole Bld POC 35.2 sec (11.1-13.5); ~PT, ~INR - Anti Coag Clinic 2.9 (0.9-1.1)
--- NOTE | 2024-12-08 10:03 | MHC.OFFVISCO ---
Intake Intake Visit Reasons: Anticoagulation Allergies latex [LATEX] Allergy (Intermediate, Verified 12/08/24 09:54) RASH GUILLERMO Inhibitors Allergy (Mild, Verified 12/08/24 09:54) cough varenicline [From Chantix] Allergy (Mild, Verified 12/08/24 09:54) hives rosuvastatin Adverse Reaction (Intermediate, Verified 12/08/24 09:54) Muscle Pain barium sulfate Adverse Reaction (Mild, Verified 12/08/24 09:54) burn on face nicotine Adverse Reaction (Mild, Verified 12/08/24 09:54) rash lisinopril Adverse Reaction (Verified 12/08/24 09:54) cough statins Allergy (Severe, Uncoded 11/10/24 10:09) edema seasonal Allergy (Mild, Uncoded 11/10/24 10:09) seasonal allergies watermelon rind Adverse Reaction (Intermediate, Uncoded 11/10/24 10:09) Cough Medication List - Last Reconciled 12/08/24 by Charity Cintron RN albuterol sulfate 90 mcg/actuation 2 puffs PO Q6H PRN albuterol sulfate 2.5 mg (3 mL) inhalation Q4H 30 days amiodarone 100 mg PO DAILY baclofen 10 mg PO BID 90 days budesonide 0.5 mg (2 mL) inhalation BID [CANNIBIS TAKE 1 GUMMY PO Q AM AND Q PM ] cetirizine (Allergy Relief (cetirizine)) 10 mg PO DAILY denosumab (Prolia) 60 mg subcut [id number] diltiazem HCl CD 360 mg PO DAILY evolocumab (Repatha SureClick) 140 mg subcut Q2W furosemide 40 mg PO BID gabapentin 800 mg PO TID losartan 25 mg PO DAILY miscellaneous medical supply (Blood Pressure Cuff) As directed mupirocin 2% 1 appl topical TID 30 days nebulizers As directed Oxygen Home Use As directed potassium chloride ER (Klor-Con M) 10 mEq PO DAILY 90 days roflumilast 500 mcg PO DAILY 90 days warfarin 5 mg See Protocol PO DAILY 90 days Nursing Note NO CP,INCREASED SOB,DIET/MED CHANGES,FALLS OR SX OF BLEEDING. CONTINUE PRESENT DOSE AND FOLLOW-UP IN 4 WEEKS,. GOOD UNDERSTANDING OF DOSING INSTR. Anti-Coag Initial Assessment Social Hx Patient Tobacco Use Status: Former Tobacco user alcohol intake: current Alcohol intake frequency: holidays/special occasions only Coding Level of Care Code Est Patient Level 1 Diagnoses Current use of anticoagulant therapy Z79.01 Assessment & Plan Assessment & Plan (1) Current use of anticoagulant therapy: Code(s): Z79.01 - intermediate manager (current) use of anticoagulants Category: Medical
== END 2024-12-08 10:15 | disposition home or self-care (01) ==
LOC: HO.ACS 09:46
PROVIDERS: PCP Physician Assistant; Visit Provider Internal Medicine
DX: Z79.01 Long term (current) use of anticoagulants (principal)

== ENCOUNTER → 2024-12-08 09:46 | Outpatient (BNVA) | payer MEDICARE, SELFPAY | PROVIDERS: PCP Physician Assistant; Visit Provider Internal Medicine | DX: I48.0 Paroxysmal atrial fibrillation (principal); Z79.01 Long term (current) use of anticoagulants; Z51.81 Encounter for therapeutic drug level monitoring | CPT/HCPCS: 85610; 99211 ==

== ENCOUNTER 2024-12-27 09:14 | Outpatient (AMB) | payer MEDICARE, SELFPAY ==
[2024-12-27 09:38] VITALS: BP 122/64; PULSE 91; TEMP 36.1; O2SAT 96; BMI 41.8
--- NOTE | 2024-12-27 09:38 | A.OFFVIS_ITS ---
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: No Accompanied by: Self / Same As Patient Allergies latex [LATEX] Allergy (Intermediate, Verified 12/27/24 09:46) RASH GUILLERMO Inhibitors Allergy (Mild, Verified 12/27/24 09:46) cough varenicline [From Chantix] Allergy (Mild, Verified 12/27/24 09:46) hives rosuvastatin Adverse Reaction (Intermediate, Verified 12/27/24 09:46) Muscle Pain barium sulfate Adverse Reaction (Mild, Verified 12/27/24 09:46) burn on face nicotine Adverse Reaction (Mild, Verified 12/27/24 09:46) rash lisinopril Adverse Reaction (Verified 12/27/24 09:46) cough statins Allergy (Severe, Uncoded 12/27/24 09:46) edema seasonal Allergy (Mild, Uncoded 12/27/24 09:46) seasonal allergies watermelon rind Adverse Reaction (Intermediate, Uncoded 12/27/24 09:46) Cough Medication List - Last Reconciled 12/27/24 by Josue Lewis PA-C albuterol sulfate 90 mcg/actuation 2 puffs PO Q6H PRN albuterol sulfate 2.5 mg (3 mL) inhalation Q4H 30 days amiodarone 100 mg PO DAILY baclofen 10 mg PO BID 90 days budesonide 0.5 mg (2 mL) inhalation BID [CANNIBIS TAKE 1 GUMMY PO Q AM AND Q PM ] cetirizine (Allergy Relief (cetirizine)) 10 mg PO DAILY denosumab (Prolia) 60 mg subcut [id number] diltiazem HCl CD 360 mg PO DAILY evolocumab (Repatha SureClick) 140 mg subcut Q2W furosemide 40 mg PO BID gabapentin 800 mg PO TID losartan 25 mg PO DAILY miscellaneous medical supply (Blood Pressure Cuff) As directed mupirocin 2% 1 appl topical TID 30 days nebulizers As directed Oxygen Home Use As directed potassium chloride ER (Klor-Con M) 10 mEq PO DAILY 90 days roflumilast 500 mcg PO DAILY 90 days warfarin 5 mg See Protocol PO DAILY 90 days HPI AWV G0438 - see comments HPI Details Patient is a 73-year-old female here today for an annual wellness visit. Patient has a past medical history significant for advanced COPD, nonischemic cardiomyopathy, paroxysmal AFib, p.m. or, morbid obesity, hyperlipidemia, CHRISTIANO. Today we discussed her belkofski of care and end of life planning. We also discussed her comprehensive care plan which was scanned into patient's documents. Colorectal cancer screening: Had positive Cologuard in 2021, --> Huma has not been a candidate f or colonoscopy due severe COPD-requiring supplemental O2. Mammogram: Needs mammogram- has not been able to schedule mammogram due to chronic fungal infection underneath her breasts. Will supply patient with anti fungal powder. Vaccines: Up-to-date with COVID vaccine, RSV vaccine and pneumonia vaccine HPI Comments History of Present Illness Details reviewed past medical history- yes reviewed surgical / hospitalization history- yes reviewed current medications- yes reviewed family history- yes home safety throw rugs? grab bars? raised toilet seat? working smoke detectors? activities of daily living difficulty bathing or showering? difficulty dressing? difficulty using the toilet? difficulty getting in and out of bed? difficulty walking? receives help from other person's with any of the above tasks? instrumental activities of daily living uses telephone - gets to place out of walking distance- go shopping for groceries- repairs own meals- does own minor home maintenance- does own laundry- does own housework- manages own money- currently takes medication- end of life planning discussed advanced directives- yes advanced directives on file? discussed wishes expressed in advanced directives. fall risk have you had any falls with injuries in the past year? have you had 2 or more falls in the past year? fall risk assessment: [facility] Medical History COPD (chronic obstructive pulmonary disease) Atelectasis Acute and chronic respiratory failure Aortic aneurysm COPD (chronic obstructive pulmonary disease) Arthralgia NICM (nonischemic cardiomyopathy) Hyperlipidemia Arthropathy of cervical spine Cardiomyopathy Paroxysmal A-fib Abdominal pain Chronic respiratory failure CHRISTIANO on CPAP COPD (chronic obstructive pulmonary disease) Surgical History History of esophagogastroduodenoscopy (EGD) Hx of dilation and curettage Hx of cholecystectomy Hx of hysterectomy History of bilateral cataract extraction Trigger finger of thumb Family History Father CHF (congestive heart failure) PNA (pneumonia) Dementia Diabetes HTN (hypertension) Family history of diabetes mellitus Mother CHF (congestive heart failure) MRSA (methicillin resistant Staphylococcus aureus) Son Afib Son Psoriasis Arthritis Psoriatic arthritis Daughter Hypothyroid Fibromyalgia Brother No problems noted. Brother No problems noted. Sister No problems noted. Social History Household Members: Spouse and Children Household Members Other:: Daughter Amy, and Remy Housing: House Do you presently have visiting nurse or other home services: No Alcohol intake: current Alcohol intake frequency: holidays/special occasions only Alcohol type: beer and hard liquor Patient Tobacco Use Status: Former Tobacco user Years Smoked: 50yrs +/- e-Cigarette/Vaping Use: Never Used Second Hand Smoke Exposure: No Substance Use Type: Marijuana Advance Directives Date on File: 10/27/16 service: No Current occupational status: retired Cognitive needs: Yes (walker) Hearing needs: No Vision needs: Yes (glasses) Questionnaire Medicare Wellness Checkup [age] What gender do you identify with?: female During the past 4 weeks, how much have you been bothered by emotional problems such as feeling anxious, depressed, irritable, sad or downhearted, and blue?: not at all During the past 4 weeks, has your physical & emotional health limited your social activities with family, friends, neighbors, or groups?: not at all During the past 4 weeks, how much bodily pain have you generally had?: moderate pain During the past 4 weeks, was someone available to help you if you needed & wanted help?: yes, as much as I wanted During the past 4 weeks, what was the hardest physical activity you could do for at least 2 minutes?: light Can you get to places out of walking distance without help? (For eg., can you travel alone on buses, taxis or drive your car?): No Can you go shopping for groceries or clothes without someone's help?: No Can you prepare your own meals?: Yes Can you do your housework without help?: No Because of any health problems, do you need the help of another person with your personal care needs such as eating, bathing, dressing or getting around the house?: No Can you handle your own money without help?: Yes During the past 4 weeks, how would you rate your health in general?: good During the past 4 weeks how have things been going for you?: good & bad parts about equal Are you having difficulties driving your car?: not applicable, I don't use a car Do you always fasten your seat belt when you are in a car?: yes, usually During past 4 weeks, have you been bothered by the following: never: Falling or dizzy when standing up, Sexual problems?, Teeth or denture problems? and Problems using the telephone? and sometimes: Trouble eating well? and Tiredness or fatigue? Have you fallen 2 or more times in the past year?: No Are you afraid of falling?: Yes Are you a smoker?: no During the past 4 weeks, how many drinks of wine, beer, or other alcoholic macey erages did you have?: 2-5 drinks per week Do you exercise for about 20 minutes 3 or more times a week?: no, I usually do not exercise this much Have you been given information to help with the following?: yes: Hazards in your house that might hurt you? and no: Keeping track of your medications? How often do you have trouble taking medicines the way you have been told to take them?: I always take medicine as prescribed How confident are you that you can control & manage most of your health problems?: somewhat confident What is your race?: White Mini Mental State Exam (MMSE) Orientation What is the (year) (season) (date) (day) (month)?: year Where are we (state) (county) (town or city) (hospital) (floor)?: town or city Attention & Calculation (CHOOSE ONE) Spell WORLD backwards (DLROW): 5 letters Score Score: 7 Activity of Daily Living Bathing - sponge bath, tub bath or shower: receives no assistance (gets in/out by self, if usual bathing means Dressing - getting clothes from closets & drawers, including inner/outer garments & fasteners.: gets clothes & gets completely dressed without help Toileting - going to the 'toilet room' for urine/bowel elimination & cleaning self/arranging clothes: goes to toilet room, cleans self, arranges clothes without help Transfer: moves in & out of bed and chair without help (may use support object) Continence: controls urination/bowel movements completely by self Feeding: feeds self without help Total Score: 0 Information obtained from: patient Using telephone: independent Traveling: needs assistance Shopping: dependent Preparing meals: independent Housework: needs assistance Taking medicine: independent Managing money: independent PHQ-9 Over the last 2 weeks, how often have you been bothered by any of the following problems? 1. Little interest or pleasure in doing things: not at all 2. Feeling down, depressed, or hopeless: not at all 3. Trouble falling or staying asleep, or sleeping too much: not at all 4. Feeling tired or having little energy: several days 5. Poor appetite or overeating: several days 6. Feeling bad about yourself - or that you are a failure or have let yourself or your family down: more than half the days 7. Trouble concentrating on things, such as reading the newspaper or watching television: not at all 8. Moving or speaking so slowly that other people could have noticed. Or the opposite - being so fidgety or restless that you have been moving around a lot more than usual: not at all 9. Thoughts that you would be better off or of hurting yourself in some way: not at all Total score: 4 Depression Screening Interpretation: Positive Depression Screening Follow-up: Existing condition and Declines treatment Depression Screening Done: Yes 20574 - PHQ-9 Billing: Yes Source: Developed by Drs. David Sky, Alanna Wolf, Jarrett Hess and colleagues, with an educational juliocesar from [employer]. Physical Exam Vital Signs: Last Vital Signs Temp 96.9 F 12/27/24 09:38 Pulse 91 12/27/24 09:38 BP 122/64 12/27/24 09:38 Pulse Ox 96 12/27/24 09:38 Oxygen Delivery Method Nasal Cannula 12/27/24 09:38 Oxygen Flow Rate 2 12/27/24 09:38 BMI result Body Mass Index 41.8 HEENT Other: hearing screening whisper test- passed Eyes Other: vision screening- 20 20 OS OD OU Other: urinary incontinence? no Neuro Other: balance Romberg- normal tandem walk test- able with walker assistance walk-in turned test-able with walker assistance rise from sit to stand-within 3 seconds Assessment & Plan Assessment & Plan (1) Annual wellness visit: Code(s): Z00.00 - Encounter for general adult medical examination without abnormal findings Plan: As per HPI Orders: Orders Comprehensive Jachin. Panel Fast 12/27/24 I10 - Essential (primary) hypertension MM screening mammo BI Today Z12.31 - Encounter for screening mammogram for malignant neoplasm of breast Medications: New nystatin 1 appl topical DAILY 4 weeks 60 grams 1RF B35.9 - Dermatophytosis, unspecified Quality Reporting (2019) Depression/Bipolar (159/160/161/177) PHQ-9: Total score: 4 Coding Level of Care Code Medicare First (G0438) Diagnoses Annual wellness visit Z00.00 CPT Codes Advance Care Planning - Time spent: 1-15 minutes, not on file ([id number]) Additional Codes PHQ-9 - 72145 - PHQ-9 Billing: Yes ([id number]) Advance Care Planning Advance Care Planning discussion: Exists, not on file Date of discussion: 12/28/24 Forms completed: MOLST Time spent: 1-15 minutes, not on file Actual minutes spent: 4
== END 2024-12-27 10:24 | disposition home or self-care (01) ==
PROVIDERS: PCP Physician Assistant; Visit Provider Physician Assistant
DX: Z00.00 Encounter for general adult medical examination without abnormal findings (principal)

== ENCOUNTER → 2024-12-27 09:14 | Outpatient (BNVA) | payer MEDICARE, SELFPAY | PROVIDERS: PCP Physician Assistant; Visit Provider Physician Assistant | DX: Z00.00 Encounter for general adult medical examination without abnormal findings (principal); J44.9 Chronic obstructive pulmonary disease, unspecified; E78.5 Hyperlipidemia, unspecified | CPT/HCPCS: 96127 ==

== ENCOUNTER 2025-01-05 09:45 | Outpatient (AMB) | payer MEDICARE, SELFPAY ==
--- NOTE | 2025-01-05 10:03 | MHC.OFFVISCO ---
Intake Intake Visit Reasons: Anticoagulation Allergies latex [LATEX] Allergy (Intermediate, Verified 01/05/25 09:57) RASH GUILLERMO Inhibitors Allergy (Mild, Verified 01/05/25 09:57) cough varenicline [From Chantix] Allergy (Mild, Verified 01/05/25 09:57) hives rosuvastatin Adverse Reaction (Intermediate, Verified 01/05/25 09:57) Muscle Pain barium sulfate Adverse Reaction (Mild, Verified 01/05/25 09:57) burn on face nicotine Adverse Reaction (Mild, Verified 01/05/25 09:57) rash lisinopril Adverse Reaction (Verified 01/05/25 09:57) cough statins Allergy (Severe, Uncoded 01/05/25 09:57) edema seasonal Allergy (Mild, Uncoded 01/05/25 09:57) seasonal allergies watermelon rind Adverse Reaction (Intermediate, Uncoded 01/05/25 09:57) Cough Medication List - Last Reconciled 01/05/25 by Arianne Ritchie RN albuterol sulfate 90 mcg/actuation 2 puffs PO Q6H PRN albuterol sulfate 2.5 mg (3 mL) inhalation Q4H 30 days amiodarone 100 mg PO DAILY baclofen 10 mg PO BID 90 days budesonide 0.5 mg (2 mL) inhalation BID [CANNIBIS TAKE 1 GUMMY PO Q AM AND Q PM ] cetirizine (Allergy Relief (cetirizine)) 10 mg PO DAILY denosumab (Prolia) 60 mg subcut [id number] diltiazem HCl CD 360 mg PO DAILY evolocumab (Repatha SureClick) 140 mg subcut Q2W furosemide 40 mg PO BID gabapentin 800 mg PO TID losartan 25 mg PO DAILY miscellaneous medical supply (Blood Pressure Cuff) As directed mupirocin 2% 1 appl topical TID 30 days nebulizers As directed nystatin 1 appl topical DAILY 4 weeks Oxygen Home Use As directed potassium chloride ER (Klor-Con M) 10 mEq PO DAILY 90 days roflumilast 500 mcg PO DAILY 90 days warfarin 5 mg See Protocol PO DAILY 90 days Nursing Note INR: 2.9- in therapeutic range 2-3 Medications and supplements reviewed- nystatin powder- no interaction with warfarin per micromedex No changes in health, diet, medications, or supplements, Denies any signs and symptoms of bleeding or bruising or clotting. 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
[2025-01-05 10:04] LABS: Prothrombin Time Whole Bld POC 34.3 sec (11.1-13.5); ~PT, ~INR - Anti Coag Clinic 2.9 (0.9-1.1)
== END 2025-01-05 10:09 | disposition home or self-care (01) ==
LOC: HO.ACS 09:45
PROVIDERS: PCP Physician Assistant; Visit Provider Internal Medicine
DX: Z79.01 Long term (current) use of anticoagulants (principal)

== ENCOUNTER → 2025-01-05 09:45 | Outpatient (BNVA) | payer MEDICARE, SELFPAY | PROVIDERS: PCP Physician Assistant; Visit Provider Internal Medicine | DX: I48.0 Paroxysmal atrial fibrillation (principal); Z79.01 Long term (current) use of anticoagulants; Z51.81 Encounter for therapeutic drug level monitoring | CPT/HCPCS: 85610; 99211 ==

== ENCOUNTER 2025-02-02 09:43 | Outpatient (AMB) | payer MEDICARE, SELFPAY ==
--- NOTE | 2025-02-02 10:04 | MHC.OFFVISCO ---
Intake Intake Visit Reasons: Anticoagulation Allergies latex [LATEX] Allergy (Intermediate, Verified 02/02/25 09:45) RASH GUILLERMO Inhibitors Allergy (Mild, Verified 02/02/25 09:45) cough varenicline [From Chantix] Allergy (Mild, Verified 02/02/25 09:45) hives rosuvastatin Adverse Reaction (Intermediate, Verified 02/02/25 09:45) Muscle Pain barium sulfate Adverse Reaction (Mild, Verified 02/02/25 09:45) burn on face nicotine Adverse Reaction (Mild, Verified 02/02/25 09:45) rash lisinopril Adverse Reaction (Verified 02/02/25 09:45) cough statins Allergy (Severe, Uncoded 01/05/25 09:57) edema seasonal Allergy (Mild, Uncoded 01/05/25 09:57) seasonal allergies watermelon rind Adverse Reaction (Intermediate, Uncoded 01/05/25 09:57) Cough Nursing Note NO CP,SOB,DIET/MED CHANGES,FALLS OR SX OF BLEEDING. CONTINUE PRESENT DOSE AND FOLLOW-UP IN 4 WEEKS. WILL BE SURTE TO HAVE DARK [place] TODAY AND 2-3X WEEKLY GOOD UNDERSTANDING OF DOSING INSTR. Anti-Coag Initial Assessment Social Hx Patient Tobacco Use Status: Former Tobacco user alcohol intake: current Alcohol intake frequency: holidays/special occasions only Coding Level of Care Code Est Patient Level 1 Diagnoses Current use of anticoagulant therapy Z79.01 Results AMB INR Fingerstick AMB INR Fingerstick 3.1 Last Edit by Charity Cintron RN on 02/02/25 09:53 Assessment & Plan Assessment & Plan (1) Current use of anticoagulant therapy: Code(s): Z79.01 - prison (current) use of anticoagulants Category: Medical
[2025-02-02 11:35] LABS: Prothrombin Time Whole Bld POC 37.1 sec (11.1-13.5); ~PT, ~INR - Anti Coag Clinic 3.1 (0.9-1.1)
== END 2025-02-02 10:07 | disposition home or self-care (01) ==
LOC: HO.ACS 09:43
PROVIDERS: PCP Physician Assistant; Visit Provider Internal Medicine Medical Oncology
DX: Z79.01 Long term (current) use of anticoagulants (principal)

== ENCOUNTER → 2025-02-02 09:43 | Outpatient (BNVA) | payer MEDICARE, SELFPAY | PROVIDERS: PCP Physician Assistant; Visit Provider Internal Medicine Medical Oncology | DX: I48.0 Paroxysmal atrial fibrillation (principal); Z79.01 Long term (current) use of anticoagulants; Z51.81 Encounter for therapeutic drug level monitoring | CPT/HCPCS: 85610; 99211 ==

== ENCOUNTER 2025-02-16 09:58 | Outpatient (AMB) | payer MEDICARE, SELFPAY ==
[2025-02-16 10:07] VITALS: BP 114/54; PULSE 85; O2SAT 95; BMI 42.5
--- NOTE | 2025-02-16 10:07 | MHC.OFFVIS ---
Vital Signs 02/16/25 10:07 Height 5 ft 4.5 in Weight 251 lb 5.231 oz BMI 42.5 BP 114/54 L Blood Pressure Location Lt brachial Position Sitting Pulse 85 Pulse Source Pulse Oximeter Pulse Oximetry (%) 95 Oxygen Delivery Method Nasal Cannula Oxygen Flow Rate 2 Intake Visit Reasons: Shortness of breath Allergies latex [LATEX] Allergy (Intermediate, Verified 02/16/25 10:10) RASH GUILLERMO Inhibitors Allergy (Mild, Verified 02/16/25 10:10) cough varenicline [From Chantix] Allergy (Mild, Verified 02/16/25 10:10) hives rosuvastatin Adverse Reaction (Intermediate, Verified 02/16/25 10:10) Muscle Pain barium sulfate Adverse Reaction (Mild, Verified 02/16/25 10:10) burn on face nicotine Adverse Reaction (Mild, Verified 02/16/25 10:10) rash lisinopril Adverse Reaction (Verified 02/16/25 10:10) cough statins Allergy (Severe, Uncoded 01/05/25 09:57) edema seasonal Allergy (Mild, Uncoded 01/05/25 09:57) seasonal allergies watermelon rind Adverse Reaction (Intermediate, Uncoded 01/05/25 09:57) Cough HPI Comments Details: The patient is a 74-year-old woman with a known history atrial fibrillation on Eliquis in addition to amiodarone 200 mg which she takes half a tab. Apparently she worsening respiratory symptoms was admitted to [facility] with acute on chronic hypercarbic and hypoxic respiratory failure. The patient has done well though now she is on oxygen. She quit smoking. We did look at the CT scan demonstrating some small areas of ground-glass opacities. However very limited. No evidence of any significant interstitial lung disease. However, we still have to monitor closely the use of the amiodarone. She still tapering down from the prednisone. Currently she is on 3 L nasal cannula. She does have some snoring at nighttime. She does have headaches in the morning. Headaches are better at this time. She has underlying daytime drowsiness. Her [place] score is elevated 12/24. Sometimes she falls asleep at the dining room table. Patient has not a sleep study. Also, she had an echocardiogram demonstrating moderate pulmonary hypertension does also concerned and could be related to untreated sleep apnea. The patient also had pulmonary function studies demonstrating moderate obstructive ventilatory defect consistent with her degree of COPD. We did go for a walking oximetry. RA saturation 93%, desat to 88% with activity. 97% 2L at rest and maintained 95% on 2 Liters with activity. Pt needs to continue using oxygen. Needs a conserving device trial. 02/19/2023 the patient is here for pulmonary follow-up visit. Still complains of her dyspnea on exertion. Also complains that she still needs to be on the oxygen. She wishes to be off the oxygen a bit more. Unfortunately when she takes it off she does get short of breath very quickly. Usually last about 10 minutes. The patient also been having some chest congestion. She was also start Daliresp which has not started as of yet. I will send her prescription to her mail order in order for to started. She also start slowly to develop tolerance. She does continue to use his CPAP every night. CPAP therapy continues to be affecting beneficial. She has an old machine but is working well and I did suggest that she continue using that machine. Her mask is good fitting. 08/22/2023 the patient is here for a pulmonary follow-up visit. Overall the patient has been doing well from a respiratory status. She continues to have dyspnea on exertion mild to moderate severity. But overall better. She does use respiratory medications well. The medications are getting expensive. I did recommend she can decrease the Daliresp to every other day to see if this provides her with the benefits of the medication but does not cause her to go into the donut hole. The patient also had a CT scan of the abdomen. The lung bases are okay although she does have a right kidney lesion that needs to be further addressed with an MRI. She is concerned about this. In regards to the CPAP the CPAP therapy has been very affecting beneficial. She did come and she talk to our staff here and she found a better fitting mask and her machine is now adjusted and she is tolerating a perfect. Her AHI is not 0.4. She does use more than 4 hours a night in the therapy has been affecting beneficial in she will continue to use it at this time. 06/23/2024 the patient is here for a pulmonary follow-up visit. Overall she is doing fairly well. She does complaint of dyspnea on exertion. She has also felt that she has been holding her breath. Sometimes she feels some tension around her chest area. [id number] severity. She did have a chest x-ray which we personally reviewed. She is hyperinflated overall. Although it looks like her left hemidiaphragm is little higher up in does have some atelectasis in that area as well. She was supposed to start pulmonary rehabilitation but she was not able to do so because of scheduling. Therefore, I did provide with the online pulmonary rehabilitation that she can perform. I did ask her to work exercises. Also work on personally breathing. Will plan to repeat the chest x-ray in 3-4 months. If it continues to be abnormal will request a CT scan of the chest. She continues on the CPAP. The CPAP therapy continues to be affecting beneficial. She does use more than 4 hours a night. In addition to that she has been using the Daliresp that has been helpful but every other day because of the adverse effects. She continues with respiratory therapy with good compliance. She continues also using the oxygen. She has a little ulceration of her nares. I will give her additional antimicrobial ointment provide to the little ulceration. She knows to take breaks from the oxygen that will also help with an going to heating process. 09/15/2024 the patient is here for a pulmonary follow-up visit. She is having difficulty with her mask. Sometimes it comes loose and she starts leaking. And then she feels like she is more short of breath. She has gone up on her oxygen because she feels like she is not getting of oxygen. We did download her CPAP though it seems like the APAP is set up perfectly fine her AHI is below 1. She has had issues with air leakage when the mask is not on place. Currently she does like her F30 I mask. Seems to be the better once she has tried. She does have a small wide fitting. I did have a small 1 I would like her to try. If not we can switch her to a different mask but she does like that when particular design. Hopefully with a smaller mask she gets a better seal and she has less air leakage and she can not tolerated. Otherwise she continues with respiratory therapy with good effect. She is still short of breath. Although she does have multifactorial reasons to be short of breath. Makes work on deep breathing exercises. We did look at a chest x-ray that she had back in May demonstrating hypo expansion of the lungs and atelectasis because of the hyperexpansion. The patient does benefit from pulmonary rehabilitation. We had requested a before but it just was not the time. Will put another referral when for pulmonary rehabilitation at this time. 02/16/2025 the patient is here for a pulmonary follow-up visit. Overall she is doing okay. She still has a significant spasms. She continues use albuterol once or twice a day. She understands this could be worsening her spasms and tremulousness. I did go ahead and send her ipratropium for the nebulizer that she can use instead of the albuterol and she can use that along with the budesonide as well. If she does need her rescue inhaler will stick with the albuterol because the ipratropium short-acting beta agonist as expensive for her. The patient continues use her CPAP. CPAP therapy continues to be affecting beneficial. Although she does complaint of air leakage to the mask that sometimes wakes her up and she is bothered by that. I did download her APAP and it seems like the AHI is 0.6. Therefore I will decrease her maximum pressure from 13-12. Hopefully she will tolerate that well. If she needs made a cut it down further she can always call so I can download her machine again to make sure we can do that adequately. The patient will continue using the baclofen for her significant spasms and will follow-up with her primary care doctor regarding additional blood work evaluation. [facility] Medical History COPD (chronic obstructive pulmonary disease) Atelectasis Acute and chronic respiratory failure Aortic aneurysm COPD (chronic obstructive pulmonary disease) Arthralgia NICM (nonischemic cardiomyopathy) Hyperlipidemia Arthropathy of cervical spine Cardiomyopathy Paroxysmal A-fib Abdominal pain Chronic respiratory failure CHRISTIANO on CPAP COPD (chronic obstructive pulmonary disease) Surgical History History of esophagogastroduodenoscopy (EGD) Hx of dilation and curettage Hx of cholecystectomy Hx of hysterectomy History of bilateral cataract extraction Trigger finger of thumb Family History Father CHF (congestive heart failure) PNA (pneumonia) Dementia Diabetes HTN (hypertension) Family history of diabetes mellitus Mother CHF (congestive heart failure) MRSA (methicillin resistant Staphylococcus aureus) Son Afib Son Psoriasis Arthritis Psoriatic arthritis Daughter Hypothyroid Fibromyalgia Brother No problems noted. Brother No problems noted. Sister No problems noted. Social History Household Members: Spouse and Children Household Members Other:: Daughter Amy, and Remy Housing: House Do you presently have visiting nurse or other home services: No Alcohol intake: current Alcohol intake frequency: holidays/special occasions only Alcohol type: beer and hard liquor Patient Tobacco Use Status: Former Tobacco user Years Smoked: 50yrs +/- e-Cigarette/Vaping Use: Never Used Second Hand Smoke Exposure: No Substance Use Type: Marijuana Advance Directives Date on File: 10/27/16 service: No Current occupational status: retired Cognitive needs: Yes (walker) Hearing needs: No Vision needs: Yes (glasses) Review of Systems Const Denies chills, Denies fatigue, Denies fever(s), Denies weight gain and Denies weight loss ENT Denies dizziness Card Denies chest pain, Denies leg edema, Denies lightheadedness, Denies palpitations, Reports dyspnea on exertion, Denies orthopnea and Denies other Resp Reports cough and Reports dyspnea on exertion GI Denies hematochezia and Denies change in stool character Musc Denies abnormal gait, Denies muscle weakness, Denies numbness, Denies radiating pain into limb and Denies tingling Neuro Denies abnormal gait, Denies dizziness, Denies numbness and Denies tingling Endo Denies fatigue and Denies palpitations Physical Exam Vital Signs: Last Vital Signs Pulse 85 02/16/25 10:07 BP 114/54 L 02/16/25 10:07 Pulse Ox 95 02/16/25 10:07 Oxygen Delivery Method Nasal Cannula 02/16/25 10:07 Oxygen Flow Rate 2 02/16/25 10:07 BMI result Body Mass Index 42.5 Const General: comfortable and no acute distress Orientation/consciousness: patient oriented x3 HEENT Other: Unremarkable Head: Yes normal to inspection Neck Neck: Yes normal visual inspection Chest Chest palpation & inspection: normal inspection of the chest Resp Auscultation: diminished lung sounds Cardio Palpation: normal PMI Heart sounds: S1 normal heart sound present, S2 normal heart sound present, no gallops, no murmurs and no rubs GI Palpation (GI): Soft to palpation Back/Spine/Pelvis Other: unremarkable Skin General skin exam: no rashes or lesions noted Neuro General: patient oriented x3 Extrem General: Yes normal to inspection Psych Mental Status: mental status grossly normal Assessment & Plan Assessment & Plan (1) COPD (chronic obstructive pulmonary disease): Code(s): J44.9 - Chronic obstructive pulmonary disease, unspecified Category: Medical Qualifiers: COPD type: chronic bronchitis Chronic bronchitis type: simple Qualified Code(s): J41.0 - Simple chronic bronchitis (2) GERD (gastroesophageal reflux disease): Code(s): K21.9 - Gastro-esophageal reflux disease without esophagitis Category: Medical Qualifiers: Esophagitis presence: without esophagitis Qualified Code(s): K21.9 - Gastro-esophageal reflux disease without esophagitis (3) CHRISTIANO on CPAP: Code(s): G47.33 - Obstructive sleep apnea (adult) (pediatric); Z99.89 - Dependence on other enabling machines and devices Category: Medical (4) Chronic respiratory failure: Code(s): J96.10 - Chronic respiratory failure, unspecified whether with hypoxia or hypercapnia Category: Medical Qualifiers: Respiratory failure complication: hypoxia Qualified Code(s): J96.11 - Chronic respiratory failure with hypoxia Plan continuie budesonide to once day Daliresp 500mcg daily (ok every other day) stop DuoNeb and albuterol nebs Start ipratropium nebs BID WILLIAN as needed continue allergy medicine: zyrtec reflux diet continue PPI continue APAP therapy. AHI .8, Decreased pressures F/U 4-6 months Medications: New ipratropium bromide 2.5 mL inhalation TID 30 days 275 mL 11RF J41.0 - Simple chronic bronchitis ipratropium bromide 2.5 mL inhalation TID 275 mL 11RF 30 days J41.0 - Simple chronic bronchitis Coding Level of Care Code Est Pt Level 4 (02282) Complex EM visit Add On G2211 Diagnoses Simple chronic bronchitis J41.0 COPD type: chronic bronchitis Chronic bronchitis type: simple Gastroesophageal reflux disease without esophagitis K21.9 Esophagitis presence: without esophagitis CHRISTIANO on CPAP G47.33; Z99.89 Chronic respiratory failure with hypoxia J96.11 Respiratory failure complication: hypoxia Time Spent (min) 17
== END 2025-02-16 10:39 | disposition home or self-care (01) ==
LOC: HO.HPS 09:59
PROVIDERS: PCP Physician Assistant; Visit Provider Hospitalist
DX: J41.0 Simple chronic bronchitis (principal); K21.9 Gastro-esophageal reflux disease without esophagitis; G47.33 Obstructive sleep apnea (adult) (pediatric); Z99.89 Dependence on other enabling machines and devices; J96.11 Chronic respiratory failure with hypoxia
CPT/HCPCS: 99214; G2211

== ENCOUNTER → 2025-02-16 09:58 | Outpatient (BNVA) | payer MEDICARE, SELFPAY | PROVIDERS: PCP Physician Assistant; Visit Provider Hospitalist | DX: J41.0 Simple chronic bronchitis (principal); I48.91 Unspecified atrial fibrillation; K21.9 Gastro-esophageal reflux disease without esophagitis; G47.33 Obstructive sleep apnea (adult) (pediatric); J96.11 Chronic respiratory failure with hypoxia; Z99.89 Dependence on other enabling machines and devices; Z79.01 Long term (current) use of anticoagulants; Z79.899 Other long term (current) drug therapy; Z99.81 Dependence on supplemental oxygen; Z87.891 Personal history of nicotine dependence | CPT/HCPCS: 99212 ==

== ENCOUNTER 2025-03-02 09:28 | Outpatient (REF) | payer MEDICARE, SELFPAY ==
[2025-03-02 10:27] LABS: Hematocrit 39.6 % (37.0-47.0); Hemoglobin 13.3 g/dl (12.0-16.0); Mean Corpuscular HGB Conc 33.6 g/dl (31.0-35.0); Mean Corpuscular Hemoglobin 31.1 pg (27.0-33.0); Mean Corpuscular Volume 92.7 fL (80.0-98.0); Mean Platelet Volume 9.1 fL (9.4-12.3); Platelet Count 348 X10*3/uL (160-400); Red Blood Count 4.27 X10*6/uL (4.20-5.50); Red Cell Distribution Width 13.2 % (11.0-16.0); White Blood Count 7.4 X10*3/uL (4.8-10.8)
[2025-03-02 11:17] LABS: Alanine Aminotransferase 14 U/L (0-31); Albumin Level 3.9 g/dL (3.5-5.0); Alkaline Phosphatase 87 U/L (39-117); Anion Gap 16 (12-20); Aspartate Amino Transferase 22 U/L (5-31); Bilirubin Total 0.6 mg/dL (0.0-1.0); Blood Urea Nitrogen 14 mg/dL (9-16); Calcium 9.7 mg/dL (8.4-10.2); Carbon Dioxide 32 mmol/L (22-29); Chloride 96 mmol/L (96-108); Cholesterol 252 mg/dL (<200); Estimated Glomerular Filt Rate 47; Glucose Fasting 95 mg/dL (60-99); HDL Cholesterol 75 mg/dL (>40); LDL Cholesterol Calculated 157 mg/dL (<100); Potassium 3.2 mmol/L (3.3-5.1); Sodium 141 mmol/L (135-145); Total Protein 7.2 g/dL (6.5-8.0); Triglycerides 101 mg/dL (<150)
== END 2025-03-02 09:29 | disposition home or self-care (01) ==
LOC: HO.LAB 09:28
PROVIDERS: Internal Medicine; PCP Physician Assistant; Visit Provider Physician Assistant
DX: J43.2 Centrilobular emphysema (principal); I10 Essential (primary) hypertension; E78.2 Mixed hyperlipidemia; I48.0 Paroxysmal atrial fibrillation; Z51.81 Encounter for therapeutic drug level monitoring; Z79.01 Long term (current) use of anticoagulants
CPT/HCPCS: 36415; 80053; 80061; 82043; 82570; 84443; 85027; 85610; 99211

== ENCOUNTER 2025-03-02 09:44 | Outpatient (AMB) | payer MEDICARE, SELFPAY ==
[2025-03-02 10:06] LABS: Prothrombin Time Whole Bld POC 32.7 sec (11.1-13.5); ~PT, ~INR - Anti Coag Clinic 2.7 (0.9-1.1)
--- NOTE | 2025-03-02 10:09 | MHC.OFFVISCO ---
Intake Intake Visit Reasons: Anticoagulation Allergies latex [LATEX] Allergy (Intermediate, Verified 03/02/25 09:58) RASH GUILLERMO Inhibitors Allergy (Mild, Verified 03/02/25 09:58) cough varenicline [From Chantix] Allergy (Mild, Verified 03/02/25 09:58) hives rosuvastatin Adverse Reaction (Intermediate, Verified 03/02/25 09:58) Muscle Pain barium sulfate Adverse Reaction (Mild, Verified 03/02/25 09:58) burn on face nicotine Adverse Reaction (Mild, Verified 03/02/25 09:58) rash lisinopril Adverse Reaction (Verified 03/02/25 09:58) cough statins Allergy (Severe, Uncoded 01/05/25 09:57) edema seasonal Allergy (Mild, Uncoded 01/05/25 09:57) seasonal allergies watermelon rind Adverse Reaction (Intermediate, Uncoded 01/05/25 09:57) Cough Medication List - Last Reconciled 03/02/25 by Charity Cintron RN albuterol sulfate 90 mcg/actuation 2 puffs PO Q6H PRN albuterol sulfate 2.5 mg (3 mL) inhalation Q4H 30 days amiodarone 100 mg PO DAILY baclofen 10 mg PO BID 90 days budesonide 0.5 mg (2 mL) inhalation BID [CANNIBIS TAKE 1 GUMMY PO Q AM AND Q PM ] cetirizine (Allergy Relief (cetirizine)) 10 mg PO DAILY denosumab (Prolia) 60 mg subcut [id number] diltiazem HCl CD 360 mg PO DAILY evolocumab (Repatha SureClick) 140 mg subcut Q2W furosemide 40 mg PO BID gabapentin 800 mg PO TID ipratropium bromide 2.5 mL inhalation TID 30 days losartan 25 mg PO DAILY miscellaneous medical supply (Blood Pressure Cuff) As directed mupirocin 2% 1 appl topical TID 30 days nebulizers As directed nystatin 1 appl topical DAILY 4 weeks Oxygen Home Use As directed potassium chloride ER (Klor-Con M) 10 mEq PO DAILY 90 days roflumilast 500 mcg PO DAILY 90 days warfarin 5 mg See Protocol PO DAILY 90 days Nursing Note NO CP,SOB,DIET/MED CHANGES,FALLS OR SX OF BLEEDING. CONTINUE 5MGM DAILY AND FOLLOW-UP IN 4 WEEKS. GOOD UNDERSTANDING OF DOSING INSTR. Anti-Coag Initial Assessment Social Hx Patient Tobacco Use Status: Former Tobacco user alcohol intake: current Alcohol intake frequency: holidays/special occasions only Coding Level of Care Code Est Patient Level 1 Diagnoses Current use of anticoagulant therapy Z79.01 Assessment & Plan Assessment & Plan (1) Current use of anticoagulant therapy: Code(s): Z79.01 - prison (current) use of anticoagulants Category: Medical
== END 2025-03-02 10:12 | disposition home or self-care (01) ==
LOC: HO.ACS 09:44
PROVIDERS: PCP Physician Assistant; Visit Provider Internal Medicine Medical Oncology
DX: Z79.01 Long term (current) use of anticoagulants (principal)

== ENCOUNTER 2025-03-30 09:28 | Outpatient (AMB) | payer MEDICARE, SELFPAY ==
[2025-03-30 09:38] LABS: Prothrombin Time Whole Bld POC 43.3 sec (11.1-13.5); ~PT, ~INR - Anti Coag Clinic 3.6 (0.9-1.1)
--- NOTE | 2025-03-30 09:52 | MHC.OFFVISCO ---
Intake Intake Visit Reasons: Anticoagulation Allergies latex [LATEX] Allergy (Intermediate, Verified 03/30/25 09:30) RASH GUILLERMO Inhibitors Allergy (Mild, Verified 03/30/25 09:30) cough varenicline [From Chantix] Allergy (Mild, Verified 03/30/25 09:30) hives rosuvastatin Adverse Reaction (Intermediate, Verified 03/30/25 09:30) Muscle Pain barium sulfate Adverse Reaction (Mild, Verified 03/30/25 09:30) burn on face nicotine Adverse Reaction (Mild, Verified 03/30/25 09:30) rash lisinopril Adverse Reaction (Verified 03/30/25 09:30) cough statins Allergy (Severe, Uncoded 01/05/25 09:57) edema seasonal Allergy (Mild, Uncoded 01/05/25 09:57) seasonal allergies watermelon rind Adverse Reaction (Intermediate, Uncoded 01/05/25 09:57) Cough Medication List - Last Reconciled 03/30/25 by Charity Cintron RN albuterol sulfate 90 mcg/actuation 2 puffs PO Q6H PRN albuterol sulfate 2.5 mg (3 mL) inhalation Q4H 30 days amiodarone 100 mg PO DAILY baclofen 10 mg PO BID 90 days budesonide 0.5 mg (2 mL) inhalation BID [CANNIBIS TAKE 1 GUMMY PO Q AM AND Q PM ] cetirizine (Allergy Relief (cetirizine)) 10 mg PO DAILY denosumab (Prolia) 60 mg subcut [id number] diltiazem HCl CD 360 mg PO DAILY evolocumab (Repatha SureClick) 140 mg subcut Q2W furosemide 40 mg PO BID gabapentin 800 mg PO TID ipratropium bromide 2.5 mL inhalation TID 30 days losartan 25 mg PO DAILY miscellaneous medical supply (Blood Pressure Cuff) As directed mupirocin 2% 1 appl topical TID 30 days nebulizers As directed nystatin 1 appl topical DAILY 4 weeks Oxygen Home Use As directed potassium chloride ER (Klor-Con M) 10 mEq PO DAILY 90 days roflumilast 500 mcg PO DAILY 90 days warfarin 5 mg See Protocol PO DAILY 90 days Nursing Note NO CP,SOB,DIET/MED CHANGES,FALLS OR SX OF BLEEDING. HOLD WARFARIN TODAY THEN RESUME USUAL DOSING AND FOLLOW-UP IN 4 WEEKS. GOOD UNDERSTANDING OF DOSING INSTR. 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
== END 2025-03-30 09:55 | disposition home or self-care (01) ==
LOC: HO.ACS 09:28
PROVIDERS: PCP Physician Assistant; Visit Provider Internal Medicine Medical Oncology
DX: Z79.01 Long term (current) use of anticoagulants (principal)

== ENCOUNTER → 2025-03-30 09:28 | Outpatient (BNVA) | payer MEDICARE, SELFPAY | PROVIDERS: PCP Physician Assistant; Visit Provider Internal Medicine Medical Oncology | DX: I48.0 Paroxysmal atrial fibrillation (principal); Z79.01 Long term (current) use of anticoagulants; Z51.81 Encounter for therapeutic drug level monitoring | CPT/HCPCS: 85610; 99211 ==

== ENCOUNTER 2025-04-27 09:24 | Outpatient (REF) | payer MEDICARE, SELFPAY ==
[2025-04-27 10:43] LABS: Baso%MD 0.4 %; Eos%MD 1.7 %; Hematocrit 38.9 % (37.0-47.0); Hemoglobin 12.9 g/dl (12.0-16.0); IG%MD 0.7 %; Lymph%MD 26.3 %; Mean Corpuscular HGB Conc 33.2 g/dl (31.0-35.0); Mean Corpuscular Hemoglobin 31.6 pg (27.0-33.0); Mean Corpuscular Volume 95.3 fL (80.0-98.0); Mono%MD 7.1 %; NRBC Abs Auto 0.000 X10*3/uL (0.0-0.012); NRBC Pct Auto 0.0 /100WBC (0.0-0.2); Neut%MD 63.8 %; Platelet Count 343 X10*3/uL (160-400); Red Blood Count 4.08 X10*6/uL (4.20-5.50); White Blood Count 8.1 X10*3/uL (4.8-10.8)
[2025-04-27 10:57] LABS: Alanine Aminotransferase 15 U/L (0-31); Albumin Level 4.0 g/dL (3.5-5.0); Alkaline Phosphatase 92 U/L (39-117); Anion Gap 15 (12-20); Aspartate Amino Transferase 21 U/L (5-31); Blood Urea Nitrogen 22 mg/dL (9-16); Calcium 10.1 mg/dL (8.4-10.2); Carbon Dioxide 34 mmol/L (22-29); Chloride 96 mmol/L (96-108); Estimated Glomerular Filt Rate 38; Potassium 3.2 mmol/L (3.3-5.1); Sodium 142 mmol/L (135-145); Total Protein 7.1 g/dL (6.5-8.0)
[2025-04-27 11:08] LABS: Atypical Lymph Absolute Manual 0.1 x10*3/uL; Atypical Lymphs Percent Manual 1 % (0-6); Band Neutrophils Percent 1 % (3-5); Lymphocytes Absolute Manual 1.6 X10*3/uL (1.2-4.9); Lymphocytes Percent Manual 20 % (20-40); Monocytes Absolute Manual 0.5 X10*3/uL (0.1-1.2); Monocytes Percent Manual 6 % (2-11); Neutrophils Absolute Manual 5.9 X10*3/uL (2.0-8.3); Neutrophils Percent Manual 72 % (45-73)
[2025-04-27 11:12] LABS: Large Platelet PRESENT; RBC Morphology NOTED; Stomatocytes 1+ (5-14) /OIF
[2025-05-02 01:33] LABS: Vitamin D 25-OH, D2 4 ng/mL; Vitamin D 25-OH, D3 37 ng/mL; Vitamin D 25-OH, Total 41 ng/mL (30-100)
== END 2025-04-27 09:25 | disposition home or self-care (01) ==
LOC: HO.LAB 09:24
PROVIDERS: Student in an Organized Health Care Education/Training Program; PCP Physician Assistant; Visit Provider Student in an Organized Health Care Education/Training Program
DX: M81.0 Age-related osteoporosis without current pathological fracture (principal); M35.3 Polymyalgia rheumatica; E55.9 Vitamin D deficiency, unspecified
CPT/HCPCS: 36415; 80053; 82306; 85007; 85025; 85027; 85610; 85652; 86140; 99211

== ENCOUNTER 2025-04-27 09:38 | Outpatient (AMB) | payer MEDICARE, SELFPAY ==
--- NOTE | 2025-04-27 10:02 | MHC.OFFVISCO ---
Intake Intake Visit Reasons: Anticoagulation Allergies latex (LATEX) Allergy (Intermediate, Verified 04/27/25 09:58) RASH GUILLERMO Inhibitors Allergy (Mild, Verified 04/27/25 09:58) cough varenicline (From Chantix) Allergy (Mild, Verified 04/27/25 09:58) hives rosuvastatin Adverse Reaction (Intermediate, Verified 04/27/25 09:58) Muscle Pain barium sulfate Adverse Reaction (Mild, Verified 04/27/25 09:58) burn on face nicotine Adverse Reaction (Mild, Verified 04/27/25 09:58) rash lisinopril Adverse Reaction (Verified 04/27/25 09:58) cough statins Allergy (Severe, Uncoded 04/27/25 09:58) edema seasonal Allergy (Mild, Uncoded 04/27/25 09:58) seasonal allergies watermelon rind Adverse Reaction (Intermediate, Uncoded 04/27/25 09:58) Cough Medication List - Last Reconciled 04/27/25 by Arianne Ritchie RN albuterol sulfate 90 mcg/actuation 2 puffs PO Q6H PRN albuterol sulfate 2.5 mg (3 mL) inhalation Q4H 30 days amiodarone 100 mg PO DAILY baclofen 10 mg PO BID 90 days budesonide 0.5 mg (2 mL) inhalation BID [CANNIBIS TAKE 1 GUMMY PO Q AM AND Q PM ] cetirizine (Allergy Relief (cetirizine)) 10 mg PO DAILY denosumab (Prolia) 60 mg subcut [id number] diltiazem HCl CD 360 mg PO DAILY evolocumab (Repatha SureClick) 140 mg subcut Q2W furosemide 40 mg PO BID gabapentin 800 mg PO TID ipratropium bromide 2.5 mL inhalation TID 30 days losartan 25 mg PO DAILY miscellaneous medical supply (Blood Pressure Cuff) As directed mupirocin 2% 1 appl topical TID 30 days nebulizers As directed nystatin 1 appl topical DAILY 4 weeks Oxygen Home Use As directed potassium chloride ER (Klor-Con M) 10 mEq PO DAILY 90 days roflumilast 500 mcg PO DAILY 90 days warfarin 5 mg See Protocol PO DAILY 90 days Nursing Note INR 4.0-?? out of therapeutic range of 2-3 Medications and supplements reviewed Patient status: pt on cont oxygen, amb with walker Medications or supplements: no changes Diet: appetite less, has been eating fresh tomatoes Denies any signs and symptoms of bleeding or clotting or unusual bruising Bleeding, bruising, clotting discussed Nutritional guidance given: eat greens to lower, no reds for 2-3 days Dose: hold today then cont reg 5mg x 7 F/U INR Date : 2 weeks? Patient verbalizing understanding of instructions given. Anti-Coag Initial Assessment Social Hx Patient Tobacco Use Status: Former Tobacco user alcohol intake: current Alcohol intake frequency: holidays/special occasions only Questionnaires HAS-BLED Does the patient had uncontrolled Hypertension?: No Does the patient have renal disease?: No Does the patient have liver disease?: No Does the patient have a history of stroke?: No Has the patient had major bleeding or predisposition to bleeding?: No Does the patient have labile INRs?: Yes Is the patient over 65 years of age?: Yes Is the patient on medications that gives them a predisposition to bleeding?: Yes Does the patient use alcohol?: Yes HAS-BLED Score: 4 CHADSVASC Age: 75 or over Gender: Female Does the patient have a history of CHF?: Yes Does the patient have a history of Hypertension?: Yes Does the patient have a history of Stroke/TIA/Thromboembolism?: No Does the patient have a history of Vascular Disease (prior OK, PAD or aortic plaque)?: No Does the patient have a history of Diabetes?: No CHADS VACS Score: 5 Gray Prediction Score Rsk VTE Active Cancer: No Previous VTE, excluding superficial vein thrombosis: No Reduced mobility: Yes Already known Thrombophilic Condition: No With-in last month Trauma and/or Surgery: No Elderly 70 year or older: Yes Heart and/or Respiratory Failure: Yes Acute Myocardial infarction and/or Ischemic Stroke: No Acute Infection and/or Rheumatologic Disorder: Yes Obesity (BMI 30 or greater): Yes Ongoing Hormonal Treatment: No Score: 7 Gray Score less than 4; Low Risk of VTE Gray Score 4 or greater; High Risk of VTE Coding Level of Care Code Est Patient Level 1 Diagnoses Current use of anticoagulant therapy Z79.01 Results AMB INR Fingerstick AMB INR Fingerstick 4.0 Last Edit by Arianne Ritchie RN on 04/27/25 10:07 interface delay Assessment & Plan Assessment & Plan (1) Current use of anticoagulant therapy: Code(s): 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
[2025-04-27 12:42] LABS: Prothrombin Time Whole Bld POC 47.9 sec (11.1-13.5); ~PT, ~INR - Anti Coag Clinic 4.0 (0.9-1.1)
== END 2025-04-27 10:20 | disposition home or self-care (01) ==
LOC: HO.ACS 09:38
PROVIDERS: PCP Physician Assistant; Visit Provider Internal Medicine Medical Oncology
DX: Z79.01 Long term (current) use of anticoagulants (principal)

== ENCOUNTER 2025-05-03 09:43 | Outpatient (AMB) | payer MEDICARE, SELFPAY ==
--- NOTE | 2025-05-03 10:04 | AM.OFFVISNUR ---
Intake Visit Reasons: Osteoporosis/prolia Allergies latex (LATEX) Allergy (Intermediate, Verified 04/27/25 09:58) RASH GUILLERMO Inhibitors Allergy (Mild, Verified 04/27/25 09:58) cough varenicline (From Chantix) Allergy (Mild, Verified 04/27/25 09:58) hives rosuvastatin Adverse Reaction (Intermediate, Verified 04/27/25 09:58) Muscle Pain barium sulfate Adverse Reaction (Mild, Verified 04/27/25 09:58) burn on face nicotine Adverse Reaction (Mild, Verified 04/27/25 09:58) rash lisinopril Adverse Reaction (Verified 04/27/25 09:58) cough statins Allergy (Severe, Uncoded 04/27/25 09:58) edema seasonal Allergy (Mild, Uncoded 04/27/25 09:58) seasonal allergies watermelon rind Adverse Reaction (Intermediate, Uncoded 04/27/25 09:58) Cough Office Meds Prolia 60 mg/mL subcutaneous syringe Performing Provider: Kathryn Robles MD Performing Location: [facility] [place] Endocrinology Administered by: Johanna Zhang RN on 05/03/25 10:04 Dose Route Admin Location Dispensed Lot Number Expiration Date NDC [place] 60 mg subcut upper left arm 1 mL [id number] 06/26/27 74712-510-35 [facility]GEN Total Dispensed Waste 1 mL 0 % Assessment & Plan Assessment & Plan Orders: Orders AMB Denosumab Injection Practice Supplied Today M81.0 - Age-related osteoporosis without current pathological fracture Coding
== END 2025-05-03 10:03 | disposition home or self-care (01) ==
PROVIDERS: PCP Physician Assistant; Visit Provider Student in an Organized Health Care Education/Training Program
DX: M81.0 Age-related osteoporosis without current pathological fracture (principal)

== ENCOUNTER → 2025-05-03 09:43 | Outpatient (BNVA) | payer MEDICARE, SELFPAY | PROVIDERS: PCP Physician Assistant; Visit Provider Student in an Organized Health Care Education/Training Program | DX: M81.0 Age-related osteoporosis without current pathological fracture (principal); Z79.899 Other long term (current) drug therapy | CPT/HCPCS: 96372; J0897 ==

== ENCOUNTER 2025-05-17 13:34 | Outpatient (AMB) | payer MEDICARE, SELFPAY ==
--- NOTE | 2025-05-17 13:44 | A.OFFVIS_ITS ---
Vital Signs 05/17/25 13:49 Height 5 ft 4.5 in Weight 248 lb 14.43 oz BMI 42.1 BP 124/62 Blood Pressure Location Lt brachial Position Sitting Pulse 91 Pulse Source Pulse Oximeter Pulse Oximetry (%) 91 L Oxygen Delivery Method Room Air Intake Visit Reasons: osteoporosis Intake Note: Patient presents for Osteoporosis follow up. Allergies latex (LATEX) Allergy (Intermediate, Verified 05/17/25 13:49) RASH GUILLERMO Inhibitors Allergy (Mild, Verified 05/17/25 13:49) cough varenicline (From Chantix) Allergy (Mild, Verified 05/17/25 13:49) hives rosuvastatin Adverse Reaction (Intermediate, Verified 05/17/25 13:49) Muscle Pain barium sulfate Adverse Reaction (Mild, Verified 05/17/25 13:49) burn on face nicotine Adverse Reaction (Mild, Verified 05/17/25 13:49) rash lisinopril Adverse Reaction (Verified 05/17/25 13:49) cough statins Allergy (Severe, Uncoded 04/27/25 09:58) edema seasonal Allergy (Mild, Uncoded 04/27/25 09:58) seasonal allergies watermelon rind Adverse Reaction (Intermediate, Uncoded 04/27/25 09:58) Cough Medication List - Last Reconciled 05/17/25 by Kathryn Robles MD albuterol sulfate 90 mcg/actuation 2 puffs PO Q6H PRN albuterol sulfate 2.5 mg (3 mL) inhalation Q4H 30 days amiodarone 100 mg PO DAILY baclofen 10 mg PO BID 90 days budesonide 0.5 mg (2 mL) inhalation BID [CANNIBIS TAKE 1 GUMMY PO Q AM AND Q PM ] cetirizine (Allergy Relief (cetirizine)) 10 mg PO DAILY cholecalciferol (vitamin D3) 1,250 mcg PO QWEEK 90 days denosumab (Prolia) 60 mg subcut [id number] diltiazem HCl CD 360 mg PO DAILY evolocumab (Repatha SureClick) 140 mg subcut Q2W furosemide 40 mg PO BID gabapentin 800 mg PO TID ipratropium bromide 2.5 mL inhalation TID 30 days losartan 25 mg PO DAILY miscellaneous medical supply (Blood Pressure Cuff) As directed mupirocin 2% 1 appl topical TID 30 days nebulizers As directed nystatin 1 appl topical DAILY 4 weeks Oxygen Home Use As directed potassium chloride ER (Klor-Con M) 10 mEq PO DAILY 90 days roflumilast 500 mcg PO DAILY 90 days warfarin 5 mg See Protocol PO DAILY 90 days HPI Comments Details: Patient is a 74-year-old female with COPD on 2L oxygen, hyperlipidemia complicated by coronary artery disease and aortic aneurysm, hypertension, cardiomyopathy, paroxysmal AFib on anticoagulation, GERD, polyarticular osteoarthritis, osteoporosis and a history of PMR here today for follow up Interval History: Patient last seen 10/25/[address] Larios - Received prolia injection - follows pain management for low back pain Received prolia 04/2025 Today, - No falls or fractures - Currently on 1L oxygen due to machine problems (normally on 2L) - No stiffness in the shoulders or hips Rheumatologic History: PMR Diagnosed 01/13/2021-off prednisone since February 2022-no return of PMR symptoms Has chronically elevated inflammatory markers Osteoporosis Started on Prolia 03/15/2021 - present Current Rheumatology Medication(s): Prolia 60mg SC every 6 months Vit D 50,000U every week (insurance denied it) [facility] Medical History COPD (chronic obstructive pulmonary disease) Atelectasis Acute and chronic respiratory failure Aortic aneurysm COPD (chronic obstructive pulmonary disease) Arthralgia NICM (nonischemic cardiomyopathy) Hyperlipidemia Arthropathy of cervical spine Cardiomyopathy Paroxysmal A-fib Abdominal pain Chronic respiratory failure CHRISTIANO on CPAP COPD (chronic obstructive pulmonary disease) Surgical History History of esophagogastroduodenoscopy (EGD) Hx of dilation and curettage Hx of cholecystectomy Hx of hysterectomy History of bilateral cataract extraction Trigger finger of thumb Family History Father CHF (congestive heart failure) PNA (pneumonia) Dementia Diabetes HTN (hypertension) Family history of diabetes mellitus Mother CHF (congestive heart failure) MRSA (methicillin resistant Staphylococcus aureus) Son Afib Son Psoriasis Arthritis Psoriatic arthritis Daughter Hypothyroid Fibromyalgia Brother No problems noted. Brother No problems noted. Sister No problems noted. Social History Household Members: Spouse and Children Household Members Other:: Daughter Amy, and Remy Housing: House Do you presently have visiting nurse or other home services: No Alcohol intake: current Alcohol intake frequency: holidays/special occasions only Alcohol type: beer and hard liquor Patient Tobacco Use Status: Former Tobacco user Years Smoked: 50yrs +/- e-Cigarette/Vaping Use: Never Used Second Hand Smoke Exposure: No Substance Use Type: Marijuana Advance Directives Date on File: 10/27/16 service: No Current occupational status: retired Cognitive needs: Yes (walker) Hearing needs: No Vision needs: Yes (glasses) Review of Systems Const Details: Review of Systems Constitutional: Denies fever, chills, weight loss ENT: Denies vision changes, eye pain or eye redness, dental caries, dry mouth GI: Denies nausea, vomiting, diarrhea, abdominal pain, change in BM Pulm: Denies SOB, JEAN-BAPTISTE, hemoptysis, wheezing Cards: Denies chest pain, palpitations Skin: Denies Raynaud's, rash, nail changes, photosensitivity, COMMUNITY PL[employer]NER: Denies headaches, weakness, paresthesias, recurrent falls MSK: as per HPI All other systems reviewed and are unremarkable except noted above Physical Exam Exam Exam: Vital signs reviewed Physical Examination CONSTITUITIONAL Patient alert and cooperative. Well appearing and in no apparent painful distress RESP Decreased air movement throughout No creps MSK Hands * Right Hand: Able to make a fist. No swelling or tenderness to palpation of these joints. No deformities noted. * Left Hand: Able to make a fist. No swelling or tenderness to palpation of these joints. No deformities noted. Wrists * Right Wrist: Full ROM. 70 degrees of wrist flexion, 80 degrees of wrist extension. No swelling or TTP * Left Wrist: Full ROM. 70 degrees of wrist flexion, 80 degrees of wrist extension. No swelling or TTP Elbows * Right Elbow: Full ROM. No swelling or TTP. No TTP of the medial and lateral epicondyles * Left Elbow: Full ROM. No swelling or TTP. No TTP of the medial and lateral epicondyles Shoulders * Right shoulder: Full ROM. No swelling noted. No TTP of the AC joint, subacromial bursa or posterior shoulder * Left shoulder: Full ROM. No swelling noted. No TTP of the AC joint, subacromial bursa or posterior shoulder Knees * Right knee: Full ROM. No swelling noted. TTP of the knee joint lie * Left knee: Full ROM. No swelling noted. TTP of the knee joint lie Ankles * Right ankle: Good ankle dorsiflexion and plantar flexion. No swelling. No TTP of the ankle joint * Left ankle: Good ankle dorsiflexion and plantar flexion. No swelling. No TTP of the ankle joint Feet * Right foot: Negative squeeze test * Left foot: Negative squeeze test Tender points? * No tenderness to palpation of the bilateral trapezius, supraspinatus, anterior costochondral junctions, bilateral suboccipital muscle insertions SKIN No rashes Vital Signs: Last Vital Signs Pulse 91 05/17/25 13:49 BP 124/62 05/17/25 13:49 Pulse Ox 91 L 05/17/25 13:49 Oxygen Delivery Method Room Air 05/17/25 13:49 BMI result Body Mass Index 42.1 Results Reviewed Results Reviewed: Laboratory Tests 10/18/24 04/27/25 08:08 09:43 WBC 8.1 RBC 4.08 L Hgb 12.9 Hct 38.9 Plt Count 343 ESR 78 H 81 H Sodium 142 Potassium 3.2 L Chloride 96 Carbon Dioxide 34 H BUN 22 H Creatinine 1.36 AST 21 ALT 15 Alkaline Phosphatase 92 C-Reactive Protein 1.84 H 3.51 H 25-OH Vitamin D Total 25.4 L Rheumatology Labs 12/12/20 10/18/24 13:20 08:08 Rheumatoid Factor < 15.0 Cycl Citrul Peptide IgG <16 DIMA Screen NEGATIVE HLA-B27 Negative DEXA 08/2024 FINDINGS: LEFT FEMUR, NECK: Current: BMD 0.742 g/cm2, Z-score -0.9, T-score -2.1, osteopenia. Prior: BMD 0.684 g/cm2. Baseline: BMD 0.745 g/cm2. LEFT FEMUR, TOTAL: Current: BMD 0.814 g/cm2, Z-score -0.6, T-score -1.5, osteopenia, 6.5% increase from previous, 1.9% increase from baseline (<5% change is not significant). Prior: BMD 0.764 g/cm2. Baseline: BMD 0.799 g/cm2. AP SPINE L2-L4 (excluding L1): The data of L1-L4 has been changed to exclude the L1 vertebral body, because significant degenerative changes at this level may cause overestimation of lumbar spine density. Current: BMD 0.925 g/cm2, Z-score -1.7, T-score -2.3, osteopenia, 16.4% increase from previous, 11.9% increase from baseline (<5% change is not significant). Prior: BMD 0.795 g/cm2. Baseline: BMD 0.827 g/cm2. Assessment & Plan Assessment & Plan (1) Osteoporosis: Comment: DEXA 08/2024: AP Spine -2.3, Left femur neck -2.1, Left femur total -1.5 DEXA 12/2020: AP Spine -3.3, Left femur neck -2.5, Left femur total -1.9 Started on Prolia 03/15/2021 - present Code(s): M81.0 - Age-related osteoporosis without current pathological fracture Category: Medical Qualifiers: Osteoporosis type: age-related Presence of current pathological fracture: without current pathological fracture Qualified Code(s): M81.0 - Age- related osteoporosis without current pathological fracture Plan: #Osteoporosis Patient is a 74 y.o. female with osteoporosis No falls or fractures Low vit D, insurance denied high dose vitamin D Plan - Vitamin D 5000U daily Mon - Fri and twice a day Sat-Sun - Prolia 60mg SC every 6 months - RTC 6 months - Labs before visit: CMP, Vit D (2) Polymyalgia rheumatica: Comment: Diagnosed 01/13/2021-off prednisone since February 2022-no return of PMR symptoms Code(s): M35.3 - Polymyalgia rheumatica Category: Medical Plan: #PMR Patient with a history of PMR. Significantly elevated inflammatory markers on this check, there was concern for relapse of her PMR or new presentation of GCA but her exam and history today are not consistent with any underlying autoimmune pathology This may be related to her lower dose of oxygen that she has to use due to machine issues If the elevated CRP continues we may need to get a PET scan (3) Encounter for monitoring denosumab therapy: Code(s): Z51.81 - Encounter for therapeutic drug level monitoring; Z79.620 - USP (current) use of immunosuppressive biologic Plan: #Long-term use of Denosumab Discussed with patient the risks and benefits of denosumab (Prolia) for the management of their osteoporosis Benefits include improved bone density, decreased fracture risk Risks include rapid bone loss if denosumab stopped, osteonecrosis of the jaw especially in patients with poor oral hygiene/diabetes/use of glucocorticoids/age greater than 65 years, atypical femoral fractures, injection site reactions. Mild increased risk of infections due to RANKL on T helper cells, increased risk of hypocalcemia especially in CKD patients Keep vitamin-D at least 35 ng/mL Advised to delay non emergent dental procedures to toward the end of the 6 month cycle and if they plan to stop denosumab would need to continue antiresorptive to maintain the effects of denosumab Plan I spent 30 minutes reviewing the record and labs, taking a history, examining the patient, discussing the treatment plan, ordering diagnostic work up and documenting in the medical record Coding Level of Care Code Est Pt Level 4 (58663) Complex EM visit Add On G2211 Diagnoses Age-related osteoporosis without current pathological fracture M81.0 Osteoporosis type: age-related Presence of current pathological fracture: without current pathological fracture Polymyalgia rheumatica M35.3 Encounter for monitoring denosumab therapy Z51.81; Z79.620
[2025-05-17 13:49] VITALS: BP 124/62; PULSE 91; O2SAT 91; BMI 42.1
== END 2025-05-17 14:58 | disposition home or self-care (01) ==
LOC: HO.RHE 13:34
PROVIDERS: PCP Physician Assistant; Visit Provider Student in an Organized Health Care Education/Training Program
DX: M81.0 Age-related osteoporosis without current pathological fracture (principal); M35.3 Polymyalgia rheumatica; Z51.81 Encounter for therapeutic drug level monitoring; Z79.620 Long term (current) use of immunosuppressive biologic
CPT/HCPCS: 99214; G2211

== ENCOUNTER → 2025-05-17 13:34 | Outpatient (BNVA) | payer MEDICARE, SELFPAY | PROVIDERS: PCP Physician Assistant; Visit Provider Student in an Organized Health Care Education/Training Program | DX: M81.0 Age-related osteoporosis without current pathological fracture (principal); M35.3 Polymyalgia rheumatica; Z51.81 Encounter for therapeutic drug level monitoring; Z79.620 Long term (current) use of immunosuppressive biologic | CPT/HCPCS: 99212 ==

== ENCOUNTER 2025-05-25 | Outpatient (REF) | payer MEDICARE, SELFPAY | END 2025-05-25 00:01 | disposition home or self-care (01) | LOC: CF | PROVIDERS: PCP Physician Assistant; Visit Provider Internal Medicine Medical Oncology | DX: Z12.31 Encounter for screening mammogram for malignant neoplasm of breast (principal) | CPT/HCPCS: 85610; 99211 ==

== ENCOUNTER 2025-05-25 09:43 | Outpatient (AMB) | payer MEDICARE, SELFPAY ==
[2025-05-25 09:58] LABS: Prothrombin Time Whole Bld POC 44.7 sec (11.1-13.5); ~PT, ~INR - Anti Coag Clinic 3.7 (0.9-1.1)
--- NOTE | 2025-05-25 10:10 | MHC.OFFVISCO ---
Intake Intake Visit Reasons: Anticoagulation Allergies latex (LATEX) Allergy (Intermediate, Verified 05/25/25 09:52) RASH GUILLERMO Inhibitors Allergy (Mild, Verified 05/25/25 09:52) cough varenicline (From Chantix) Allergy (Mild, Verified 05/25/25 09:52) hives rosuvastatin Adverse Reaction (Intermediate, Verified 05/25/25 09:52) Muscle Pain barium sulfate Adverse Reaction (Mild, Verified 05/25/25 09:52) burn on face nicotine Adverse Reaction (Mild, Verified 05/25/25 09:52) rash lisinopril Adverse Reaction (Verified 05/25/25 09:52) cough statins Allergy (Severe, Uncoded 05/25/25 09:52) edema seasonal Allergy (Mild, Uncoded 05/25/25 09:52) seasonal allergies watermelon rind Adverse Reaction (Intermediate, Uncoded 05/25/25 09:52) Cough Medication List - Last Reconciled 05/25/25 by Lucia Carballo, RN albuterol sulfate 90 mcg/actuation 2 puffs PO Q6H PRN albuterol sulfate 2.5 mg (3 mL) inhalation Q4H 30 days amiodarone 100 mg PO DAILY baclofen 10 mg PO BID 90 days budesonide 0.5 mg (2 mL) inhalation BID [CANNIBIS TAKE 1 GUMMY PO Q AM AND Q PM ] cetirizine (Allergy Relief (cetirizine)) 10 mg PO DAILY cholecalciferol (vitamin D3) 1,250 mcg PO QWEEK 90 days denosumab (Prolia) 60 mg subcut [id number] diltiazem HCl CD 360 mg PO DAILY evolocumab (Repatha SureClick) 140 mg subcut Q2W furosemide 40 mg PO BID gabapentin 800 mg PO TID ipratropium bromide 2.5 mL inhalation TID 30 days losartan 25 mg PO DAILY miscellaneous medical supply (Blood Pressure Cuff) As directed mupirocin 2% 1 appl topical TID 30 days nebulizers As directed nystatin 1 appl topical DAILY 4 weeks Oxygen Home Use As directed potassium chloride ER (Klor-Con M) 10 mEq PO DAILY 90 days roflumilast 500 mcg PO DAILY 90 days warfarin 5 mg See Protocol PO DAILY 90 days Nursing Note Pt to [facility] with use of walker and portable O2 INR: 3.7 out of therapeutic range of 2-3 INR's have been high past 2 visits, 4.0, 3.6. Pt thinks it may be her summer diet with more fruits and yurok tomatoes Medications and supplements reviewed Patient status: usual health for pt Medications or supplements: no changes Diet: usual diet Denies any signs and symptoms of bleeding or clotting or unusual bruising Bleeding, bruising, clotting discussed Nutritional guidance given: food list reviewed with pt. Pt will have a serving of greens today and tomorrow. Dose: Hold today's dose of 5mg then cut weekly dose by 5mg. Pt will take 5mg X 5 days and 2.5mg X 2 days (Mon & ) starting next week. F/U INR Date: 06/08/25 Patient verbalizing understanding of instructions given. 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
== END 2025-05-25 10:18 | disposition home or self-care (01) ==
LOC: HO.ACS 09:43
PROVIDERS: PCP Physician Assistant; Visit Provider Internal Medicine Medical Oncology
DX: Z79.01 Long term (current) use of anticoagulants (principal)

== ENCOUNTER 2025-06-08 09:47 | Outpatient (AMB) | payer MEDICARE, SELFPAY ==
[2025-06-08 10:02] LABS: Prothrombin Time Whole Bld POC 30.5 sec (11.1-13.5); ~PT, ~INR - Anti Coag Clinic 2.5 (0.9-1.1)
--- NOTE | 2025-06-08 10:18 | MHC.OFFVISCO ---
Intake Intake Visit Reasons: Anticoagulation Allergies latex (LATEX) Allergy (Intermediate, Verified 06/08/25 09:55) RASH GUILLERMO Inhibitors Allergy (Mild, Verified 06/08/25 09:55) cough varenicline (From Chantix) Allergy (Mild, Verified 06/08/25 09:55) hives rosuvastatin Adverse Reaction (Intermediate, Verified 06/08/25 09:55) Muscle Pain barium sulfate Adverse Reaction (Mild, Verified 06/08/25 09:55) burn on face nicotine Adverse Reaction (Mild, Verified 06/08/25 09:55) rash lisinopril Adverse Reaction (Verified 06/08/25 09:55) cough statins Allergy (Severe, Uncoded 05/25/25 09:52) edema seasonal Allergy (Mild, Uncoded 05/25/25 09:52) seasonal allergies watermelon rind Adverse Reaction (Intermediate, Uncoded 05/25/25 09:52) Cough Medication List - Last Reconciled 06/08/25 by Charity Cintron RN albuterol sulfate 90 mcg/actuation 2 puffs PO Q6H PRN albuterol sulfate 2.5 mg (3 mL) inhalation Q4H 30 days amiodarone 100 mg PO DAILY baclofen 10 mg PO BID 90 days budesonide 0.5 mg (2 mL) inhalation BID [CANNIBIS TAKE 1 GUMMY PO Q AM AND Q PM ] cetirizine (Allergy Relief (cetirizine)) 10 mg PO DAILY cholecalciferol (vitamin D3) 1,250 mcg PO QWEEK 90 days denosumab (Prolia) 60 mg subcut [id number] diltiazem HCl CD 360 mg PO DAILY evolocumab (Repatha SureClick) 140 mg subcut Q2W furosemide 40 mg PO BID gabapentin 800 mg PO TID ipratropium bromide 2.5 mL inhalation TID 30 days losartan 25 mg PO DAILY miscellaneous medical supply (Blood Pressure Cuff) As directed mupirocin 2% 1 appl topical TID 30 days nebulizers As directed nystatin 1 appl topical DAILY 4 weeks Oxygen Home Use As directed potassium chloride ER (Klor-Con M) 10 mEq PO DAILY 90 days roflumilast 500 mcg PO DAILY 90 days warfarin 5 mg See Protocol PO DAILY 90 days Nursing Note NO CP,INCREASED SOB,DIET/MED CHANGES,FALLS OR SX OF BLEEDING. CONTINUE PRESENT DOSE AND FOLLOW-UP ON 07/04. GOOD UNDERSTANDING OF DOSING INSTR. Anti-Coag Initial Assessment Social Hx Patient Tobacco Use Status: Former Tobacco user alcohol intake: current Alcohol intake frequency: holidays/special occasions only Coding Level of Care Code Est Patient Level 1 Diagnoses Current use of anticoagulant therapy Z79.01 Assessment & Plan Assessment & Plan (1) Current use of anticoagulant therapy: Code(s): Z79.01 - nursing home (current) use of anticoagulants Category: Medical
== END 2025-06-08 10:20 | disposition home or self-care (01) ==
LOC: HO.ACS 09:47
PROVIDERS: PCP Physician Assistant; Visit Provider Internal Medicine Medical Oncology
DX: Z79.01 Long term (current) use of anticoagulants (principal)

== ENCOUNTER → 2025-06-08 09:47 | Outpatient (BNVA) | payer MEDICARE, SELFPAY | PROVIDERS: PCP Physician Assistant; Visit Provider Internal Medicine Medical Oncology | DX: Z51.81 Encounter for therapeutic drug level monitoring (principal); Z79.01 Long term (current) use of anticoagulants | CPT/HCPCS: 85610; 99211 ==

== ENCOUNTER 2025-06-14 12:34 | Outpatient (AMB) | payer MEDICARE, SELFPAY ==
--- NOTE | 2025-06-14 12:38 | MHC.OFFVIS ---
Vital Signs 06/14/25 12:39 Height 5 ft 4 in Weight 246 lb 14.684 oz BMI 42.4 BP 122/66 Blood Pressure Location Lt brachial Position Sitting Pulse 87 Pulse Source Monitor Intake Visit Reasons: 6m follow up Allergies latex (LATEX) Allergy (Intermediate, Verified 06/08/25 09:55) RASH GUILLERMO Inhibitors Allergy (Mild, Verified 06/08/25 09:55) cough varenicline (From Chantix) Allergy (Mild, Verified 06/08/25 09:55) hives rosuvastatin Adverse Reaction (Intermediate, Verified 06/08/25 09:55) Muscle Pain barium sulfate Adverse Reaction (Mild, Verified 06/08/25 09:55) burn on face nicotine Adverse Reaction (Mild, Verified 06/08/25 09:55) rash lisinopril Adverse Reaction (Verified 06/08/25 09:55) cough statins Allergy (Severe, Uncoded 05/25/25 09:52) edema seasonal Allergy (Mild, Uncoded 05/25/25 09:52) seasonal allergies watermelon rind Adverse Reaction (Intermediate, Uncoded 05/25/25 09:52) Cough Medication List - Last Reconciled 06/14/25 by Liang Larios MD albuterol sulfate 90 mcg/actuation 2 puffs PO Q6H PRN albuterol sulfate 2.5 mg (3 mL) inhalation Q4H 30 days amiodarone 100 mg PO DAILY baclofen 10 mg PO BID 90 days budesonide 0.5 mg (2 mL) inhalation BID [CANNIBIS TAKE 1 GUMMY PO Q AM AND Q PM ] cetirizine (Allergy Relief (cetirizine)) 10 mg PO DAILY cholecalciferol (vitamin D3) 1,250 mcg PO QWEEK 90 days denosumab (Prolia) 60 mg subcut [id number] diltiazem HCl CD 360 mg PO DAILY evolocumab (Repatha SureClick) 140 mg subcut Q2W furosemide 40 mg PO BID gabapentin 800 mg PO TID ipratropium bromide 2.5 mL inhalation TID 30 days losartan 25 mg PO DAILY miscellaneous medical supply (Blood Pressure Cuff) As directed mupirocin 2% 1 appl topical TID 30 days nebulizers As directed nystatin 1 appl topical DAILY 4 weeks Oxygen Home Use As directed potassium chloride ER (Klor-Con M) 10 mEq PO DAILY 90 days roflumilast 500 mcg PO DAILY 90 days warfarin 5 mg See Protocol PO DAILY 90 days HPI Comments Details: Huma returns for follow-up regarding atrial fibrillation and cardiomyopathy. Chronic shortness of breath related to pulmonary issues, but quite stable recently. She is also on supplemental oxygen. Overall, she states she feels fine. No new concerns. [facility] Medical History COPD (chronic obstructive pulmonary disease) Atelectasis Acute and chronic respiratory failure Aortic aneurysm COPD (chronic obstructive pulmonary disease) Arthralgia NICM (nonischemic cardiomyopathy) Hyperlipidemia Arthropathy of cervical spine Cardiomyopathy Paroxysmal A-fib Abdominal pain Chronic respiratory failure CHRISTIANO on CPAP COPD (chronic obstructive pulmonary disease) Surgical History History of esophagogastroduodenoscopy (EGD) Hx of dilation and curettage Hx of cholecystectomy Hx of hysterectomy History of bilateral cataract extraction Trigger finger of thumb Family History Father CHF (congestive heart failure) PNA (pneumonia) Dementia Diabetes HTN (hypertension) Family history of diabetes mellitus Mother CHF (congestive heart failure) MRSA (methicillin resistant Staphylococcus aureus) Son Afib Son Psoriasis Arthritis Psoriatic arthritis Daughter Hypothyroid Fibromyalgia Brother No problems noted. Brother No problems noted. Sister No problems noted. Social History Household Members: Spouse and Children Household Members Other:: Daughter Amy, and Remy Housing: House Do you presently have visiting nurse or other home services: No Alcohol intake: current Alcohol intake frequency: holidays/special occasions only Alcohol type: beer and hard liquor Patient Tobacco Use Status: Former Tobacco user Years Smoked: 50yrs +/- e-Cigarette/Vaping Use: Never Used Second Hand Smoke Exposure: No Substance Use Type: Marijuana Advance Directives Date on File: 10/27/16 service: No Current occupational status: retired Cognitive needs: Yes (walker) Hearing needs: No Vision needs: Yes (glasses) Review of Systems Const Denies weakness ENT Denies dizziness Card Denies chest pain, Denies chest pain with activity, Denies syncope, Denies rapid heart rate, Denies pedal edema, Denies edema, Denies leg edema, Denies lightheadedness, Denies palpitations, Denies dyspnea, Denies dyspnea on exertion and Denies orthopnea Resp Denies cough, Denies dyspnea and Denies dyspnea on exertion GI Denies hematochezia and Denies change in stool character Musc Denies abnormal gait, Denies muscle cramps, Denies muscle weakness, Denies numbness, Denies radiating pain into limb and Denies tingling Neuro Denies abnormal gait, Denies dizziness, Denies syncope, Denies numbness, Denies tingling and Denies weakness Endo Denies palpitations Physical Exam Vital Signs: Last Vital Signs Pulse 87 06/14/25 12:39 BP 122/66 06/14/25 12:39 BMI result Body Mass Index 42.4 Const General: comfortable and no acute distress Orientation/consciousness: patient oriented x3 HEENT Other: Unremarkable Head: Yes normal to inspection Neck Neck: Yes normal visual inspection Chest Chest palpation & inspection: normal inspection of the chest Resp Auscultation: clear to auscultation bilaterally Cardio Palpation: normal PMI Heart sounds: S1 normal heart sound present, S2 normal heart sound present, no gallops, no murmurs and no rubs GI Palpation (GI): Soft to palpation Back/Spine/Pelvis Other: unremarkable Skin General skin exam: no rashes or lesions noted Neuro General: patient oriented x3 Extrem General: Yes normal to inspection Psych Mental Status: mental status grossly normal Office Procedures EKG Details: EKG with underlying sinus rhythm at 87/Min; no ischemic changes; normal CA; corrected QT is slightly prolonged at 488 milliseconds. [id number], Complete Assessment & Plan Assessment & Plan (1) Paroxysmal A-fib: Code(s): I48.0 - Paroxysmal atrial fibrillation Category: Medical Plan: On low-dose amiodarone and diltiazem. Recheck thyroid function. Message sent to Dr. Corona for appropriate pulmonary testing. (2) Encounter for monitoring amiodarone therapy: Code(s): Z51.81 - Encounter for therapeutic drug level monitoring; Z79.899 - Other assisted (current) drug therapy Category: Medical Plan: Check TSH. Pulmonary status followed by Dr. Corona. (3) Atherosclerotic cardiovascular disease: Code(s): I25.10 - Atherosclerotic heart disease of [place] coronary artery without angina pectoris Category: Medical Plan: Chest CT scan shows coronary artery calcifications. However, she does not have any angina whatsoever. In 2017, she had perfusion imaging. Suspected artifact or nontransmural infarct with fixed defect at the apical inferior wall and apical anterior septum. She is statin intolerant. She is on Repatha but was not taking regularly because of high costs. She states she is taking them more regularly now. Lipids to be rechecked. (4) NICM (nonischemic cardiomyopathy): Code(s): I42.8 - Other cardiomyopathies Category: Medical Plan: Last echocardiogram with LVEF of 60-65%. In the past, has been as low as 35-40%. Clinically, no heart failure symptoms. (5) Ascending aorta enlargement: Code(s): I77.89 - Other specified disorders of arteries and arterioles Category: Medical Plan: CT chest 2020- ascending aortic size 4.3/4 cm. In his subsequent CTA, no description of this. To be rechecked on echocardiogram. (6) Abdominal aortic aneurysm: Code(s): I71.40 - Abdominal aortic aneurysm, without rupture, unspecified Category: Medical Plan: CTA from 2022- 3.3/3.9 cm. We will recheck an ultrasound. (7) CHRISTIANO on CPAP: Code(s): G47.33 - Obstructive sleep apnea (adult) (pediatric); Z99.89 - Dependence on other enabling machines and devices Category: Medical Plan: Continue CPAP. Plan Discussion Notes I discussed with the patient the need for follow-up imaging for her aortic aneurysms, explaining that an ultrasound and echocardiogram would be appropriate given the time since her last imaging. We also reviewed her hyperlipidemia management with Repatha injections and the importance of regular lab work to monitor her cholesterol levels. I advised her to follow up with Dr. Corona for her lung condition, and we discussed the potential need for a lung CT to evaluate her respiratory status. Patient was informed and verbally consented to the use of an ambient scribe for clinic note documentation during this visit. Orders: Orders TSH reflex Free T4 Today R94.6 - Abnormal results of thyroid function studies CA echo transthoracic complete Today I77.89 - Other specified disorders of arteries and arterioles US abdominal aortic aneurysm Today I25.10 - Atherosclerotic heart disease of [place] coronary artery without angina pectoris, I71.40 - Abdominal aortic aneurysm, without rupture, unspecified Patient Instructions: - Continue Repatha injections as prescribed. - Schedule and complete follow-up imaging for aortic aneurysms. - Perform lab work for thyroid and cholesterol. - Follow up with Dr. Corona for lung evaluation. Coding Level of Care Code Est Pt Level 4 (95128) Complex EM visit Add On G2211 Diagnoses Paroxysmal A-fib I48.0 Encounter for monitoring amiodarone therapy Z51.81; Z79.899 Atherosclerotic cardiovascular disease I25.10 NICM (nonischemic cardiomyopathy) I42.8 Ascending aorta enlargement I77.89 Abdominal aortic aneurysm I71.40 CHRISTIANO on CPAP G47.33; Z99.89 CPT Codes EKG - CPT: 82381-[id number], Complete ([id number])
[2025-06-14 12:39] VITALS: BP 122/66; PULSE 87; BMI 42.4
== END 2025-06-14 13:07 | disposition home or self-care (01) ==
LOC: HO.HCS 12:34
PROVIDERS: PCP Physician Assistant; Visit Provider Internal Medicine
DX: I48.0 Paroxysmal atrial fibrillation (principal); Z51.81 Encounter for therapeutic drug level monitoring; Z79.899 Other long term (current) drug therapy; I25.10 Atherosclerotic heart disease of native coronary artery without angina pectoris; I42.8 Other cardiomyopathies; I77.89 Other specified disorders of arteries and arterioles; I71.40 Abdominal aortic aneurysm, without rupture, unspecified; G47.33 Obstructive sleep apnea (adult) (pediatric); Z99.89 Dependence on other enabling machines and devices
CPT/HCPCS: 93010; 99214; G2211

== ENCOUNTER → 2025-06-14 12:34 | Outpatient (BNVA) | payer MEDICARE, SELFPAY | PROVIDERS: PCP Physician Assistant; Visit Provider Internal Medicine | DX: I48.0 Paroxysmal atrial fibrillation (principal); I25.10 Atherosclerotic heart disease of native coronary artery without angina pectoris; I71.40 Abdominal aortic aneurysm, without rupture, unspecified; G47.33 Obstructive sleep apnea (adult) (pediatric); Z99.89 Dependence on other enabling machines and devices | CPT/HCPCS: 93005; 99212 ==

== ENCOUNTER 2025-06-16 10:02 | Outpatient (AMB) | payer MEDICARE, SELFPAY ==
[2025-06-16 10:09] VITALS: BP 127/62; PULSE 83; O2SAT 93; BMI 42.9
--- NOTE | 2025-06-16 10:09 | MHC.OFFVIS ---
Vital Signs 06/16/25 10:09 Height 5 ft 4 in Weight 250 lb BMI 42.9 BP 127/62 Blood Pressure Location Lt brachial Position Sitting Pulse 83 Pulse Source Pulse Oximeter Pulse Oximetry (%) 93 Oxygen Delivery Method Nasal Cannula Oxygen Flow Rate 2 Intake Visit Reasons: Shortness of breath Allergies latex (LATEX) Allergy (Intermediate, Verified 06/16/25 10:13) RASH GUILLERMO Inhibitors Allergy (Mild, Verified 06/16/25 10:13) cough varenicline (From Chantix) Allergy (Mild, Verified 06/16/25 10:13) hives rosuvastatin Adverse Reaction (Intermediate, Verified 06/16/25 10:13) Muscle Pain barium sulfate Adverse Reaction (Mild, Verified 06/16/25 10:13) burn on face nicotine Adverse Reaction (Mild, Verified 06/16/25 10:13) rash lisinopril Adverse Reaction (Verified 06/16/25 10:13) cough statins Allergy (Severe, Uncoded 05/25/25 09:52) edema seasonal Allergy (Mild, Uncoded 05/25/25 09:52) seasonal allergies watermelon rind Adverse Reaction (Intermediate, Uncoded 05/25/25 09:52) Cough HPI Comments Details: The patient is a 74-year-old woman with a known history atrial fibrillation on Eliquis in addition to amiodarone 200 mg which she takes half a tab. Apparently she worsening respiratory symptoms was admitted to [facility] with acute on chronic hypercarbic and hypoxic respiratory failure. The patient has done well though now she is on oxygen. She quit smoking. We did look at the CT scan demonstrating some small areas of ground-glass opacities. However very limited. No evidence of any significant interstitial lung disease. However, we still have to monitor closely the use of the amiodarone. She still tapering down from the prednisone. Currently she is on 3 L nasal cannula. She does have some snoring at nighttime. She does have headaches in the morning. Headaches are better at this time. She has underlying daytime drowsiness. Her [place] score is elevated 12/24. Sometimes she falls asleep at the dining room table. Patient has not a sleep study. Also, she had an echocardiogram demonstrating moderate pulmonary hypertension does also concerned and could be related to untreated sleep apnea. The patient also had pulmonary function studies demonstrating moderate obstructive ventilatory defect consistent with her degree of COPD. We did go for a walking oximetry. RA saturation 93%, desat to 88% with activity. 97% 2L at rest and maintained 95% on 2 Liters with activity. Pt needs to continue using oxygen. Needs a conserving device trial. 02/19/2023 the patient is here for pulmonary follow-up visit. Still complains of her dyspnea on exertion. Also complains that she still needs to be on the oxygen. She wishes to be off the oxygen a bit more. Unfortunately when she takes it off she does get short of breath very quickly. Usually last about 10 minutes. The patient also been having some chest congestion. She was also start Daliresp which has not started as of yet. I will send her prescription to her mail order in order for to started. She also start slowly to develop tolerance. She does continue to use his CPAP every night. CPAP therapy continues to be affecting beneficial. She has an old machine but is working well and I did suggest that she continue using that machine. Her mask is good fitting. 08/22/2023 the patient is here for a pulmonary follow-up visit. Overall the patient has been doing well from a respiratory status. She continues to have dyspnea on exertion mild to moderate severity. But overall better. She does use respiratory medications well. The medications are getting expensive. I did recommend she can decrease the Daliresp to every other day to see if this provides her with the benefits of the medication but does not cause her to go into the donut hole. The patient also had a CT scan of the abdomen. The lung bases are okay although she does have a right kidney lesion that needs to be further addressed with an MRI. She is concerned about this. In regards to the CPAP the CPAP therapy has been very affecting beneficial. She did come and she talk to our staff here and she found a better fitting mask and her machine is now adjusted and she is tolerating a perfect. Her AHI is not 0.4. She does use more than 4 hours a night in the therapy has been affecting beneficial in she will continue to use it at this time. 06/23/2024 the patient is here for a pulmonary follow-up visit. Overall she is doing fairly well. She does complaint of dyspnea on exertion. She has also felt that she has been holding her breath. Sometimes she feels some tension around her chest area. Dnru-de-vnhymaif severity. She did have a chest x-ray which we personally reviewed. She is hyperinflated overall. Although it looks like her left hemidiaphragm is little higher up in does have some atelectasis in that area as well. She was supposed to start pulmonary rehabilitation but she was not able to do so because of scheduling. Therefore, I did provide with the online pulmonary rehabilitation that she can perform. I did ask her to work exercises. Also work on personally breathing. Will plan to repeat the chest x-ray in 3-4 months. If it continues to be abnormal will request a CT scan of the chest. She continues on the CPAP. The CPAP therapy continues to be affecting beneficial. She does use more than 4 hours a night. In addition to that she has been using the Daliresp that has been helpful but every other day because of the adverse effects. She continues with respiratory therapy with good compliance. She continues also using the oxygen. She has a little ulceration of her nares. I will give her additional antimicrobial ointment provide to the little ulceration. She knows to take breaks from the oxygen that will also help with an going to heating process. 09/15/2024 the patient is here for a pulmonary follow-up visit. She is having difficulty with her mask. Sometimes it comes loose and she starts leaking. And then she feels like she is more short of breath. She has gone up on her oxygen because she feels like she is not getting of oxygen. We did download her CPAP though it seems like the APAP is set up perfectly fine her AHI is below 1. She has had issues with air leakage when the mask is not on place. Currently she does like her F30 I mask. Seems to be the better once she has tried. She does have a small wide fitting. I did have a small 1 I would like her to try. If not we can switch her to a different mask but she does like that when particular design. Hopefully with a smaller mask she gets a better seal and she has less air leakage and she can not tolerated. Otherwise she continues with respiratory therapy with good effect. She is still short of breath. Although she does have multifactorial reasons to be short of breath. Makes work on deep breathing exercises. We did look at a chest x-ray that she had back in May demonstrating hypo expansion of the lungs and atelectasis because of the hyperexpansion. The patient does benefit from pulmonary rehabilitation. We had requested a before but it just was not the time. Will put another referral when for pulmonary rehabilitation at this time. 02/16/2025 the patient is here for a pulmonary follow-up visit. Overall she is doing okay. She still has a significant spasms. She continues use albuterol once or twice a day. She understands this could be worsening her spasms and tremulousness. I did go ahead and send her ipratropium for the nebulizer that she can use instead of the albuterol and she can use that along with the budesonide as well. If she does need her rescue inhaler will stick with the albuterol because the ipratropium short-acting beta agonist as expensive for her. The patient continues use her CPAP. CPAP therapy continues to be affecting beneficial. Although she does complaint of air leakage to the mask that sometimes wakes her up and she is bothered by that. I did download her APAP and it seems like the AHI is 0.6. Therefore I will decrease her maximum pressure from 13-12. Hopefully she will tolerate that well. If she needs made a cut it down further she can always call so I can download her machine again to make sure we can do that adequately. The patient will continue using the baclofen for her significant spasms and will follow-up with her primary care doctor regarding additional blood work evaluation. 06/16/2025 the patient is here for pulmonary follow-up visit. The patient continues to be doing well. She did follow-up with Cardiology and she continues on the amiodarone. She is going to undergo additional cardiac testing. In the meantime will go ahead and request chest x-ray and PFT to make sure that she is tolerating the amiodarone in view of her dyspnea symptoms. Likely the dyspnea symptoms are multifactorial she has significant comorbidities. She continues to respond well to the respiratory therapy. She also continues uses CPAP at nighttime. The CPAP therapy continues to be affecting beneficial. The patient will undergo blood work including a blood gas PFTs chest x-ray and will follow-up. If the x-ray is abnormal or any other concerning findings additional imaging studies may be warranted. Will follow-up in 3-4 months if she has any issues prior to this she will call for an earlier evaluation. [facility] Medical History COPD (chronic obstructive pulmonary disease) Atelectasis Acute and chronic respiratory failure Aortic aneurysm COPD (chronic obstructive pulmonary disease) Arthralgia NICM (nonischemic cardiomyopathy) Hyperlipidemia Arthropathy of cervical spine Cardiomyopathy Paroxysmal A-fib Abdominal pain Chronic respiratory failure CHRISTIANO on CPAP COPD (chronic obstructive pulmonary disease) Surgical History History of esophagogastroduodenoscopy (EGD) Hx of dilation and curettage Hx of cholecystectomy Hx of hysterectomy History of bilateral cataract extraction Trigger finger of thumb Family History Father CHF (congestive heart failure) PNA (pneumonia) Dementia Diabetes HTN (hypertension) Family history of diabetes mellitus Mother CHF (congestive heart failure) MRSA (methicillin resistant Staphylococcus aureus) Son Afib Son Psoriasis Arthritis Psoriatic arthritis Daughter Hypothyroid Fibromyalgia Brother No problems noted. Brother No problems noted. Sister No problems noted. Social History Household Members: Spouse and Children Household Members Other:: Daughter Amy, and Remy Housing: House Do you presently have visiting nurse or other home services: No Alcohol intake: current Alcohol intake frequency: holidays/special occasions only Alcohol type: beer and hard liquor Patient Tobacco Use Status: Former Tobacco user Years Smoked: 50yrs +/- e-Cigarette/Vaping Use: Never Used Second Hand Smoke Exposure: No Substance Use Type: Marijuana Advance Directives Date on File: 10/27/16 service: No Current occupational status: retired Cognitive needs: Yes (walker) Hearing needs: No Vision needs: Yes (glasses) Review of Systems Const Denies chills, Denies fatigue, Denies fever(s), Denies weight gain and Denies weight loss ENT Denies dizziness Card Denies chest pain, Denies leg edema, Denies lightheadedness, Denies palpitations, Reports dyspnea on exertion, Denies orthopnea and Denies other Resp Reports cough and Reports dyspnea on exertion GI Denies hematochezia and Denies change in stool character Musc Denies abnormal gait, Denies muscle weakness, Denies numbness, Denies radiating pain into limb and Denies tingling Neuro Denies abnormal gait, Denies dizziness, Denies numbness, Denies tingling and Reports tremor(s) Endo Denies fatigue and Denies palpitations Physical Exam Vital Signs: Last Vital Signs Pulse 83 06/16/25 10:09 BP 127/62 06/16/25 10:09 Pulse Ox 93 06/16/25 10:09 Oxygen Delivery Method Nasal Cannula 06/16/25 10:09 Oxygen Flow Rate 2 06/16/25 10:09 BMI result Body Mass Index 42.9 Const General: comfortable and no acute distress Orientation/consciousness: patient oriented x3 HEENT Other: Unremarkable Head: Yes normal to inspection Neck Neck: Yes normal visual inspection Chest Chest palpation & inspection: normal inspection of the chest Resp Auscultation: diminished lung sounds Cardio Palpation: normal PMI Heart sounds: S1 normal heart sound present, S2 normal heart sound present, no gallops, no murmurs and no rubs GI Palpation (GI): Soft to palpation Back/Spine/Pelvis Other: unremarkable Skin General skin exam: no rashes or lesions noted Neuro General: patient oriented x3 Extrem General: Yes normal to inspection Psych Mental Status: mental status grossly normal Assessment & Plan Assessment & Plan (1) COPD (chronic obstructive pulmonary disease): Code(s): J44.9 - Chronic obstructive pulmonary disease, unspecified Category: Medical Qualifiers: COPD type: chronic bronchitis Chronic bronchitis type: simple Qualified Code(s): J41.0 - Simple chronic bronchitis (2) GERD (gastroesophageal reflux disease): Code(s): K21.9 - Gastro-esophageal reflux disease without esophagitis Category: Medical Qualifiers: Esophagitis presence: without esophagitis Qualified Code(s): K21.9 - Gastro-esophageal reflux disease without esophagitis (3) CHRISTIANO on CPAP: Code(s): G47.33 - Obstructive sleep apnea (adult) (pediatric); Z99.89 - Dependence on other enabling machines and devices Category: Medical (4) Chronic respiratory failure: Code(s): J96.10 - Chronic respiratory failure, unspecified whether with hypoxia or hypercapnia Category: Medical Qualifiers: Respiratory failure complication: hypoxia Qualified Code(s): J96.11 - Chronic respiratory failure with hypoxia (5) COPD (chronic obstructive pulmonary disease): Code(s): J44.9 - Chronic obstructive pulmonary disease, unspecified Category: Medical Qualifiers: COPD type: emphysema Emphysema type: centrilobular Qualified Code(s): J43.2 - Centrilobular emphysema Plan continuie budesonide to once day Daliresp 500mcg daily (ok every other day) ipratropium nebs BID WILLIAN as needed continue allergy medicine: zyrtec reflux diet continue PPI continue APAP therapy. AHI .8, continue Amiodarone PFTs/CXR/Bloodgas F/U 4-6 months Orders: Orders Basic Metabolic Panel Today J43.2 - Centrilobular emphysema Venous Blood Gas Today J43.2 - Centrilobular emphysema XR chest 2V Today J43.2 - Centrilobular emphysema PFT pulmonary function test Today J43.2 - Centrilobular emphysema Coding Level of Care Code Est Pt Level 4 (49565) Complex EM visit Add On G2211 Diagnoses Simple chronic bronchitis J41.0 COPD type: chronic bronchitis Chronic bronchitis type: simple Gastroesophageal reflux disease without esophagitis K21.9 Esophagitis presence: without esophagitis CHRISTIANO on CPAP G47.33; Z99.89 Chronic respiratory failure with hypoxia J96.11 Respiratory failure complication: hypoxia Time Spent (min) 17
== END 2025-06-16 10:33 | disposition home or self-care (01) ==
LOC: HO.HPS 10:03
PROVIDERS: PCP Physician Assistant; Visit Provider Hospitalist
DX: J41.0 Simple chronic bronchitis (principal); K21.9 Gastro-esophageal reflux disease without esophagitis; G47.33 Obstructive sleep apnea (adult) (pediatric); Z99.89 Dependence on other enabling machines and devices; J96.11 Chronic respiratory failure with hypoxia; J43.2 Centrilobular emphysema
CPT/HCPCS: 99214; G2211

== ENCOUNTER → 2025-06-16 10:02 | Outpatient (BNVA) | payer MEDICARE, SELFPAY | PROVIDERS: PCP Physician Assistant; Visit Provider Hospitalist | DX: J41.0 Simple chronic bronchitis (principal); K21.9 Gastro-esophageal reflux disease without esophagitis; G47.33 Obstructive sleep apnea (adult) (pediatric); J96.10 Chronic respiratory failure, unspecified whether with hypoxia or hypercapnia; J96.11 Chronic respiratory failure with hypoxia; Z99.89 Dependence on other enabling machines and devices | CPT/HCPCS: 99212 ==

== ENCOUNTER 2025-06-29 09:17 | Outpatient (AMB) | payer MEDICARE, SELFPAY ==
--- NOTE | 2025-06-29 09:28 | A.OFFPC_ITS ---
Vital Signs 06/29/25 09:30 Height 5 ft 4 in Weight 245 lb 6 oz BMI 42.1 BP 120/70 Blood Pressure Location Lt brachial Position Sitting Pulse 86 Pulse Source Pulse Oximeter Temp 97.3 F Temp Source Temporal Artery Scan Pulse Oximetry (%) 93 Oxygen Delivery Method Nasal Cannula Intake Visit Reasons: f/u COPD Intake Note: Patient is here to follow up on COPD. Rn Care Transition Required: No Applications Processor: Not Required per policy Accompanied by: Self / Same As Patient Allergies latex (LATEX) Allergy (Intermediate, Verified 06/29/25 09:56) RASH GUILLERMO Inhibitors Allergy (Mild, Verified 06/29/25 09:56) cough varenicline (From Chantix) Allergy (Mild, Verified 06/29/25 09:56) hives rosuvastatin Adverse Reaction (Intermediate, Verified 06/29/25 09:56) Muscle Pain barium sulfate Adverse Reaction (Mild, Verified 06/29/25 09:56) burn on face nicotine Adverse Reaction (Mild, Verified 06/29/25 09:56) rash lisinopril Adverse Reaction (Verified 06/29/25 09:56) cough statins Allergy (Severe, Uncoded 06/29/25 09:56) edema seasonal Allergy (Mild, Uncoded 06/29/25 09:56) seasonal allergies watermelon rind Adverse Reaction (Intermediate, Uncoded 06/29/25 09:56) Cough Medication List - Last Reconciled 06/29/25 by Josue Lewis PA-C albuterol sulfate 90 mcg/actuation 2 puffs PO Q6H PRN albuterol sulfate 2.5 mg (3 mL) inhalation Q4H 30 days amiodarone 100 mg PO DAILY baclofen 10 mg PO BID 90 days budesonide 0.5 mg (2 mL) inhalation BID [CANNIBIS TAKE 1 GUMMY PO Q AM AND Q PM ] cetirizine (Allergy Relief (cetirizine)) 10 mg PO DAILY cholecalciferol (vitamin D3) 1,250 mcg PO QWEEK 90 days denosumab (Prolia) 60 mg subcut [id number] diltiazem HCl CD 360 mg PO DAILY evolocumab (Repatha SureClick) 140 mg subcut Q2W furosemide 40 mg PO BID gabapentin 800 mg PO TID ipratropium bromide 2.5 mL inhalation TID 30 days losartan 25 mg PO DAILY miscellaneous medical supply (Blood Pressure Cuff) As directed mupirocin 2% 1 appl topical TID 30 days nebulizers As directed nystatin 1 appl topical DAILY 4 weeks Oxygen Home Use As directed potassium chloride ER (Klor-Con M) 10 mEq PO DAILY 90 days roflumilast 500 mcg PO DAILY 90 days warfarin 5 mg See Protocol PO DAILY 90 days Tobacco use date assessed: 06/29/25 Fall risk assessment: No Falls in past year Last assessed Fall Risk: 06/29/25 Dental Screening Dental Screen Date: 06/29/25 Did you have a dental visit in the last 12 months?: No Did you have a dental problem in the last 6 months where you did not have access to dental care?: No Was dental information given to patient?: No HPI f/u COPD HPI Details Patient is a 74 year-old female here today for follow-up visit..?? Patient has a past medical history significant for advanced COPD, nonischemic cardiomyopathy, paroxysmal AFib, p.m. or, morbid obesity, hyperlipidemia, CHRISTIANO. .. Concern---> She also experiences hot flashes, potentially related to dietary changes, and has been advised to monitor blood sugar levels during these episodes. Hyperlipidemia: Is followed by Cardiology, LDL and total cholesterol quite high for her cardiovascular risk. Has not been able to tolerate statin therapy. Patient is started on Repatha by her political aide though which he has been more consistent with due to having insurance coverage. Most recent lipid panel showing improvement in LDL cholesterol levels from 180 mg/dL to 157 mg/dL. PLAN ;Will recheck fasting lipid panel CHRONIC MEDICAL CONDITIONS-----> .. Paroxysmal AFib:? Patient is followed by Cardiology ( Dr. Mcintosh) continues on warfarin without any overt signs of bleeding. .. Abdominal aortic aneurysm: Currently under surveillance // COPD/ CHRISTIANO: Patient is a former smoker,? Continues to require low-dose continuous O2 throughout the day. Patient is followed by matrix inspector Dr. Corona and continues on budesonide updrafts?. She still does have breathing problems especially on exertion. .. PMR/polyarthralgia: Is followed by Rheumatology .? Unfortunately inflammatory markers still elevated.. Recently received a cortisone injection in her shoulder due to continued shoulder pain. She also continues to complain of bilateral knee pain that hinders her ability to ambulate for long periods of time. Continues to use a walker for ambulation assistance Laboratory Tests 09/25/23 10/18/24 10/18/24 09:51 08:08 08:28 RBC 4.28 Hgb C-Reactive Protein Cholesterol 260 H LDL Cholesterol, C alc 157 H 25-OH Vitamin D To rm 32 TSH Urine Microalbumin 03/02/25 03/02/25 04/27/25 08:49 09:50 09:43 RBC Hgb 12.9 C-Reactive Protein 3.51 H Cholesterol 252 H LDL Cholesterol, C alc 157 H 25-OH Vitamin D To rm 25.4 L TSH 1.10 Urine Microalbumin 33.0 PFSH Medical History COPD (chronic obstructive pulmonary disease) Atelectasis Acute and chronic respiratory failure Aortic aneurysm COPD (chronic obstructive pulmonary disease) Arthralgia NICM (nonischemic cardiomyopathy) Hyperlipidemia Arthropathy of cervical spine Cardiomyopathy Paroxysmal A-fib Abdominal pain Chronic respiratory failure CHRISTIANO on CPAP COPD (chronic obstructive pulmonary disease) Surgical History History of esophagogastroduodenoscopy (EGD) Hx of dilation and curettage Hx of cholecystectomy Hx of hysterectomy History of bilateral cataract extraction Trigger finger of thumb Family History Father CHF (congestive heart failure) PNA (pneumonia) Dementia Diabetes HTN (hypertension) Family history of diabetes mellitus Mother CHF (congestive heart failure) MRSA (methicillin resistant Staphylococcus aureus) Son Afib Son Psoriasis Arthritis Psoriatic arthritis Daughter Hypothyroid Fibromyalgia Brother No problems noted. Brother No problems noted. Sister No problems noted. Social History Household Members: Spouse and Children Household Members Other:: Daughter Amy, and Remy Housing: House Do you presently have visiting nurse or other home services: No Alcohol intake: current Alcohol intake frequency: holidays/special occasions only Alcohol type: beer and hard liquor Patient Tobacco Use Status: Former Tobacco user Years Smoked: 50yrs +/- e-Cigarette/Vaping Use: Never Used Second Hand Smoke Exposure: Yes Substance Use Type: Marijuana Advance Directives Date on File: 10/27/16 service: No Current occupational status: retired Cognitive needs: Yes (walker) Hearing needs: No Vision needs: Yes (glasses) Questionnaire PHQ-9 Over the last 2 weeks, how often have you been bothered by any of the following problems? 1. Little interest or pleasure in doing things: not at all 2. Feeling down, depressed, or hopeless: not at all 3. Trouble falling or staying asleep, or sleeping too much: not at all 4. Feeling tired or having little energy: not at all 5. Poor appetite or overeating: not at all 6. Feeling bad about yourself - or that you are a failure or have let yourself or your family down: not at all 7. Trouble concentrating on things, such as reading the newspaper or watching television: not at all 8. Moving or speaking so slowly that other people could have noticed. Or the opposite - being so fidgety or restless that you have been moving around a lot more than usual: not at all 9. Thoughts that you would be better off or of hurting yourself in some way: not at all Total score: 0 Depression Screening Interpretation: Negative Depression Screening Done: Yes 25083 - PHQ-9 Billing: Yes Source: Developed by Drs. David Sky, Alanna Wolf, Jarrett Hess and colleagues, with an educational juliocesar from [employer]. Thrive Questionnaire Date Thrive assessed: 06/29/25 I am a: Patient What is your living situation today?: I have a steady place to live Within the past 12 months, did the food you bought not last and you didn't have the money to get more?: Never true Within the past 12 months, did you worry whether your food would run out before you got money to buy more?: Never true Do you have trouble paying for medicines?: No Do you have trouble getting transportation to medical appointments?: No Do you have trouble paying your heating and electricity bill?: No Do you have trouble taking care of your child, family member or friend?: No Do you have trouble with day-to-day activities such as bathing, preparing meals, shopping, managing finances, etc.?: Yes Are you currently unemployed and looking for a job?: No Are you interested in more education?: No Please select the resources that you would like help with: None Currently or been in a relationship where the following occur: No concerns reported THRIVE Score: 0 AUDIT C Alcohol Use Questionnaire (AUDIT-C) 1. How often do you have a drink containing alcohol?: 2-3 times a week 2. How many drinks containing alcohol do you have on a typical day when you are drinking?: 1 or 2 3. How often do you have six or more drinks on one occasion?: Never Total Score: 3 JOSE-7 AMB Questionnaire JOSE-7 Date JOSE - 7 assessed: 06/29/25 Feeling nervous, anxious, or on edge: 0 = Not at all Not being able to stop or control worryin = Not at all Worrying too much about different things: 0 = Not at all Trouble relaxin = Not at all Being so restless that it is hard to sit still: 0 = Not at all Becoming easily annoyed or irritable: 0 = Not at all Feeling afraid as if something awful might happen: 0 = Not at all Total JOSE-7 score (0-4 normal; 5-9 mild; 10-14 moderate; 15-21 severe): 0 Source: Developed by Drs. David Sky, Alanna Wolf, Jarrett Hess and colleagues, with an educational juliocesar from [employer]. JOSE-7 Assessment Billing JOSE-7 Assessment Tool: JOSE-7 Assessment 97609 Review of Systems Const Denies headache(s) Eyes Denies loss of vision ENT Denies vertigo, Denies dizziness, Denies headache(s) and Denies sore throat Card Denies chest pain, Denies leg edema and Denies lightheadedness Resp Denies cough, Denies hemoptysis and Denies wheezing GI Denies abdominal pain, Denies melena, Denies constipation, Denies diarrhea and Denies vomiting Denies urinary frequency, Denies dysuria and Denies urinary urgency Musc Denies arthralgias, Denies joint swelling, Denies numbness and Denies tingling Neuro Denies Abnormal speech present, Denies behavioral changes, Denies vertigo, Denies dizziness, Denies headache(s), Denies loss of vision, Denies memory loss, Denies numbness and Denies tingling Psych Denies anxiety, Denies behavioral changes, Denies depression, Denies memory loss and Denies panic attacks Domingo/Lymph Denies easy bleeding and Denies easy bruising Aller/Immun Denies wheezing Physical exam (Primary Care) Vital Signs: Last Vital Signs Temp 97.3 F 06/29/25 09:30 Pulse 86 06/29/25 09:30 BP 120/70 06/29/25 09:30 Pulse Ox 93 06/29/25 09:30 Oxygen Delivery Method Nasal Cannula 06/29/25 09:30 BMI result Body Mass Index 42.1 BMI Assessment/Plan discussion: High BMI High, discussed plan: lifestyle, weight reduction, dietary and physical activity Tobacco/Smoking Status: Tobacco use Status Tobacco use date assessed 06/29/25 06/29/25 09:40 Patient Tobacco Use Status Former Tobacco user 06/29/25 09:40 e-Cigarette/Vaping Use Never Used 06/29/25 09:40 PHQ-9: PHQ-9 Score PHQ-9: Total score 0 06/29/25 09:40 Depression Screening Interpretation: Negative Thrive Assessment: Date of Thrive Assessment Date Thrive assessed 06/29/25 06/29/25 09:40 Currently or been in a relationship where the following occur: No concerns reported Const General: healthy appearing, no acute distress, alert and awake Nutritional Appearance: well nourished Orientation/consciousness: oriented to person, oriented to place and oriented to time HENMT Ears: TM's normal bilaterally General nose exam: Normal nasal mucous membranes and turbinates present Eyes Conjunctivae: conjunctivae normal Sclerae: sclerae normal Pupils: Equal, round and reactive pupils present Neck Neck: Yes no lymphadenopathy and Yes no JVD Thyroid: Thyroid normal Carotids: no bruits Resp Effort & Inspection: normal respiratory effort and not tachypneic Auscultation: no crackles, no rales, no rhonchi and no wheezes Cardio Rate: regular rate Rhythm: regular rhythm Heart sounds: no murmurs and normal S1 and S2 GI Palpation (GI): Soft to palpation, nontender, no hepatomegaly and no splenomegaly Auscultation: normal bowel sounds Skin General skin exam: no rashes or lesions noted and dry skin Neuro General: oriented to person, oriented to place and oriented to time Cranial nerves: Yes Equal, round and reactive pupils present Speech: No Abnormal speech present Gait exam (Neuro): Normal gait present Motor exam (neuro): no tremor noted Extrem Right upper extremity: full ROM Left upper extremity: full ROM Right lower extremity: full ROM; no edema Left lower extremity: full ROM; no edema Psych Mental Status: mental status grossly normal Speech and movement: Normal speech and movement present Affect: normal affect Attitude: cooperative Thought process: Normal thought process present Coding Level of Care Code Est Pt Level 4 (92452) Diagnoses Primary hypertension I10 Hypertension type: primary hypertension Centrilobular emphysema J43.2 COPD type: emphysema Emphysema type: centrilobular Abdominal aortic aneurysm (AAA) without rupture, unspecified part I71.40 Aortic location: abdominal aorta Abdominal aorta location: unspecified Presence of rupture: without rupture Mixed hyperlipidemia E78.2 Hyperlipidemia type: mixed hyperlipidemia Cardiomyopathy, unspecified type I42.9 Cardiomyopathy type: unspecified Class 3 obesity E66.813 Additional Codes PHQ-9 - 28312 - PHQ-9 Billing: Yes ([id number]) JOSE-7 Assessment Billing - JOSE-7 Assessment Tool: JOSE-7 Assessment 50144 ([id number]) Assessment & Plan Assessment & Plan (1) HTN (hypertension): Code(s): I10 - Essential (primary) hypertension Category: Medical Qualifiers: Hypertension type: primary hypertension Qualified Code(s): I10 - Essential (primary) hypertension Plan: Patient's blood pressure acceptable today in office, will continue her current dose of antihypertensive medication with goal blood pressure to remain below 140/90 (2) COPD (chronic obstructive pulmonary disease): Code(s): J44.9 - Chronic obstructive pulmonary disease, unspecified Category: Medical Qualifiers: COPD type: emphysema Emphysema type: centrilobular Qualified Code(s): J43.2 - Centrilobular emphysema Plan: Will continue to follow [facility] The patient's COPD is monitored through pulmonary function tests and imaging. Oxygen saturation is maintained at 93% with supplemental oxygen. No changes in management were discussed during this visit. (3) Aortic aneurysm: Code(s): I71.9 - Aortic aneurysm of unspecified site, without rupture Category: Medical Qualifiers: Aortic location: abdominal aorta Abdominal aorta location: unspecified Presence of rupture: without rupture Qualified Code(s): I71.40 - Abdominal aortic aneurysm, without rupture, unspecified Plan: The patient has aortic aneurysms in the abdominal and aortic regions, with imaging scheduled for the end of July to monitor progression. (4) Hyperlipidemia: Code(s): E78.5 - Hyperlipidemia, unspecified Category: Medical Qualifiers: Hyperlipidemia type: mixed hyperlipidemia Qualified Code(s): E78.2 - Mixed hyperlipidemia Plan: Hyperlipidemia is managed with Repatha, with LDL cholesterol levels showing improvement. Continued monitoring and dietary modifications were discussed. (5) Cardiomyopathy: Comment: Echo EF 55% 10/2018, mod pul HTN, Code(s): I42.9 - Cardiomyopathy, unspecified Category: Medical Qualifiers: Cardiomyopathy type: unspecified Qualified Code(s): I42.9 - Cardiomyopathy, unspecified Plan: Continues to follow cardiology. Most recent echocardiogram has been stable. No overt signs of heart failure on physical exam (6) Class 3 obesity: Code(s): E66.813 - Obesity, class 3 Category: Medical Plan: Patient does understand her BMI is over 40. She has been trying to work on better eating habits. Unfortunately due to her back issues in her severe COPD she has not been able to be physically active.
[2025-06-29 09:30] VITALS: BP 120/70; PULSE 86; TEMP 36.3; O2SAT 93; BMI 42.1
== END 2025-06-29 10:27 | disposition home or self-care (01) ==
LOC: HO.HMCH 09:18
PROVIDERS: PCP Physician Assistant; Visit Provider Physician Assistant
DX: J43.2 Centrilobular emphysema (principal); I42.9 Cardiomyopathy, unspecified; Z68.41 Body mass index [BMI] 40.0-44.9, adult; E66.813 Obesity, class 3; I10 Essential (primary) hypertension; I71.40 Abdominal aortic aneurysm, without rupture, unspecified; E78.2 Mixed hyperlipidemia

== ENCOUNTER → 2025-06-29 09:17 | Outpatient (BNVA) | payer MEDICARE, SELFPAY | PROVIDERS: PCP Physician Assistant; Visit Provider Physician Assistant | DX: I48.0 Paroxysmal atrial fibrillation (principal); J44.9 Chronic obstructive pulmonary disease, unspecified; I42.8 Other cardiomyopathies; E66.01 Morbid (severe) obesity due to excess calories; E78.5 Hyperlipidemia, unspecified; G47.33 Obstructive sleep apnea (adult) (pediatric); Z87.891 Personal history of nicotine dependence; Z99.81 Dependence on supplemental oxygen; I10 Essential (primary) hypertension; J43.2 Centrilobular emphysema; I71.40 Abdominal aortic aneurysm, without rupture, unspecified; E78.2 Mixed hyperlipidemia; I42.9 Cardiomyopathy, unspecified; E66.813 Obesity, class 3; Z68.41 Body mass index [BMI] 40.0-44.9, adult | CPT/HCPCS: 96127; 99212 ==

== ENCOUNTER 2025-07-04 11:14 | Outpatient (AMB) | payer MEDICARE, SELFPAY ==
[2025-07-04 11:21] LABS: Prothrombin Time Whole Bld POC 29.6 sec (11.1-13.5); ~PT, ~INR - Anti Coag Clinic 2.5 (0.9-1.1)
--- NOTE | 2025-07-04 11:29 | MHC.OFFVISCO ---
Intake Intake Visit Reasons: Anticoagulation Allergies latex (LATEX) Allergy (Intermediate, Verified 07/04/25 11:15) RASH GUILLERMO Inhibitors Allergy (Mild, Verified 07/04/25 11:15) cough varenicline (From Chantix) Allergy (Mild, Verified 07/04/25 11:15) hives rosuvastatin Adverse Reaction (Intermediate, Verified 07/04/25 11:15) Muscle Pain barium sulfate Adverse Reaction (Mild, Verified 07/04/25 11:15) burn on face nicotine Adverse Reaction (Mild, Verified 07/04/25 11:15) rash lisinopril Adverse Reaction (Verified 07/04/25 11:15) cough statins Allergy (Severe, Uncoded 07/04/25 11:15) edema seasonal Allergy (Mild, Uncoded 07/04/25 11:15) seasonal allergies watermelon rind Adverse Reaction (Intermediate, Uncoded 07/04/25 11:15) Cough Medication List - Last Reconciled 07/04/25 by Lucia Carballo, RN albuterol sulfate 90 mcg/actuation 2 puffs PO Q6H PRN albuterol sulfate 2.5 mg (3 mL) inhalation Q4H 30 days amiodarone 100 mg PO DAILY baclofen 10 mg PO BID 90 days budesonide 0.5 mg (2 mL) inhalation BID [CANNIBIS TAKE 1 GUMMY PO Q AM AND Q PM ] cetirizine (Allergy Relief (cetirizine)) 10 mg PO DAILY cholecalciferol (vitamin D3) 1,250 mcg PO QWEEK 90 days denosumab (Prolia) 60 mg subcut [id number] diltiazem HCl CD 360 mg PO DAILY evolocumab (Repatha SureClick) 140 mg subcut Q2W furosemide 40 mg PO BID gabapentin 800 mg PO TID ipratropium bromide 2.5 mL inhalation TID 30 days losartan 25 mg PO DAILY miscellaneous medical supply (Blood Pressure Cuff) As directed mupirocin 2% 1 appl topical TID 30 days nebulizers As directed nystatin 1 appl topical DAILY 4 weeks Oxygen Home Use As directed potassium chloride ER (Klor-Con M) 10 mEq PO DAILY 90 days roflumilast 500 mcg PO DAILY 90 days warfarin 5 mg See Protocol PO DAILY 90 days Nursing Note INR: 2.5 in therapeutic range of 2-3 Medications and supplements reviewed No changes in health, diet, medications, or supplements, Denies any signs and symptoms of bleeding or bruising or clotting. Bleeding, bruising, clotting discussed Nutritional guidance given Dose: 5mg X 5 days and 2.5mg X 2 days (Mon & ) F/U INR: 4 weeks Patient verbalizes understanding of instructions given Anti-Coag Initial Assessment Social Hx Patient Tobacco Use Status: Former Tobacco user alcohol intake: current Alcohol intake frequency: holidays/special occasions only Coding Level of Care Code Est Patient Level 1 Diagnoses Current use of anticoagulant therapy Z79.01 Assessment & Plan Assessment & Plan (1) Current use of anticoagulant therapy: Code(s): Z79.01 - MCFP (current) use of anticoagulants Category: Medical
== END 2025-07-04 11:42 | disposition home or self-care (01) ==
LOC: HO.ACS 11:14
PROVIDERS: PCP Physician Assistant; Visit Provider Internal Medicine Medical Oncology
DX: Z79.01 Long term (current) use of anticoagulants (principal)

== ENCOUNTER → 2025-07-04 11:14 | Outpatient (BNVA) | payer MEDICARE, SELFPAY | PROVIDERS: PCP Physician Assistant; Visit Provider Internal Medicine Medical Oncology | DX: Z51.81 Encounter for therapeutic drug level monitoring (principal); Z79.01 Long term (current) use of anticoagulants | CPT/HCPCS: 85610; 99211 ==

== ENCOUNTER 2025-07-22 09:44 | Outpatient (REF) | payer MEDICARE, SELFPAY ==
--- NOTE | ~2025-07-22 | US_ITS ---
CLINICAL HISTORY: I65.23 - Occlusion and stenosis of bilateral carotid arteries US bilateral carotid duplex Comparison: None Findings: No significant plaque within the common carotid arteries. Mild plaque within the carotid bulbs. Mild plaque within the internal carotid arteries. Waveforms are normal morphology. Peak systolic and end-diastolic velocities: Right CCA: 106.0 cm/s Right ICA: 194.0 cm/s Right ICA EDV: 33.0 cm/sec Right systolic ICA/CCA ratio: 1.52 Right ECA: Demonstrate moderate stenosis Subclavian artery: 385.0 cm/sec Right vertebral artery flow antegrade. Left CCA: 118.0 cm/s Left ICA: 78.0 cm/s Left ICA EDV: 19.0 cm/sec Left systolic ICA/CCA ratio: 0.65 Left ECA: Unremarkable Subclavian artery: 138 cm/sec Left vertebral artery flow antegrade. Criteria for grading carotid stenosis Stenosis % ICA PSV cm/s ICA/CCA PSV ratio ICA EDV 0-50% <125 <2.0 <40 50-69% 125-230 2.0-4.0 40-100 70% + > 230 >4.0 >100 Impression: 1. Shallow mixed plaque carotid bulbs and internal carotid arteries bilaterally. Possible 50-79% stenosis right internal carotid artery. 2. There is right subclavian artery stenosis. 3. Correlate with CTA recommended This document has been electronically signed by: Thierno Rodriguez MD on 07/23/2025 16:05:59
== END 2025-07-22 09:45 | disposition home or self-care (01) ==
LOC: HO.US 09:44
PROVIDERS: PCP Physician Assistant; Visit Provider Internal Medicine
DX: I65.23 Occlusion and stenosis of bilateral carotid arteries (principal)
CPT/HCPCS: 93880

== ENCOUNTER 2025-08-01 13:22 | Outpatient (AMB) | payer MEDICARE, SELFPAY ==
--- NOTE | 2025-08-01 13:35 | MHC.OFFVISCO ---
Intake Intake Visit Reasons: Anticoagulation Allergies latex (LATEX) Allergy (Intermediate, Verified 08/01/25 13:24) RASH GUILLERMO Inhibitors Allergy (Mild, Verified 08/01/25 13:24) cough varenicline (From Chantix) Allergy (Mild, Verified 08/01/25 13:24) hives rosuvastatin Adverse Reaction (Intermediate, Verified 08/01/25 13:24) Muscle Pain barium sulfate Adverse Reaction (Mild, Verified 08/01/25 13:24) burn on face nicotine Adverse Reaction (Mild, Verified 08/01/25 13:24) rash lisinopril Adverse Reaction (Verified 08/01/25 13:24) cough statins Allergy (Severe, Uncoded 08/01/25 13:24) edema seasonal Allergy (Mild, Uncoded 08/01/25 13:24) seasonal allergies watermelon rind Adverse Reaction (Intermediate, Uncoded 08/01/25 13:24) Cough Medication List - Last Reconciled 08/01/25 by Thi Heredia RN albuterol sulfate 90 mcg/actuation 2 puffs PO Q6H PRN albuterol sulfate 2.5 mg (3 mL) inhalation Q4H 30 days amiodarone 100 mg PO DAILY baclofen 10 mg PO BID 90 days budesonide 0.5 mg (2 mL) inhalation BID [CANNIBIS TAKE 1 GUMMY PO Q AM AND Q PM ] cetirizine (Allergy Relief (cetirizine)) 10 mg PO DAILY cholecalciferol (vitamin D3) 1,250 mcg PO QWEEK 90 days denosumab (Prolia) 60 mg subcut [id number] diltiazem HCl CD 360 mg PO DAILY evolocumab (Repatha SureClick) 140 mg subcut Q2W furosemide 40 mg PO BID gabapentin 800 mg PO TID ipratropium bromide 2.5 mL inhalation TID 30 days losartan 25 mg PO DAILY miscellaneous medical supply (Blood Pressure Cuff) As directed mupirocin 2% 1 appl topical TID 30 days nebulizers As directed nystatin 1 appl topical DAILY 4 weeks Oxygen Home Use As directed potassium chloride ER (Klor-Con M) 10 mEq PO DAILY 90 days roflumilast 500 mcg PO DAILY 90 days warfarin 5 mg See Protocol PO DAILY 90 days Nursing Note INR: 2.9 in therapeutic range Medications and supplements reviewed No changes in health, diet, medications, or supplements, Denies any signs and symptoms of bleeding or bruising or clotting. Bleeding, bruising, clotting discussed Nutritional guidance given Dose: 2.5MG X 2 DAYS/ 5MG X 5 DAYS F/U INR: 1 MONTH Patient verbalizes understanding of instructions given Anti-Coag Initial Assessment Social Hx Patient Tobacco Use Status: Former Tobacco user alcohol intake: current Alcohol intake frequency: holidays/special occasions only Coding Level of Care Code Est Patient Level 1 Diagnoses Current use of anticoagulant therapy Z79.01 Results AMB INR Fingerstick AMB INR Fingerstick 2.9 Last Edit by Thi Heredia RN on 08/01/25 13:32 MANUAL ENTRY Assessment & Plan Assessment & Plan (1) Current use of anticoagulant therapy: Code(s): Z79.01 - ferry terminal agent (current) use of anticoagulants Category: Medical
[2025-08-01 13:40] LABS: Prothrombin Time Whole Bld POC 34.7 sec (11.1-13.5); ~PT, ~INR - Anti Coag Clinic 2.9 (0.9-1.1)
== END 2025-08-01 13:37 | disposition home or self-care (01) ==
LOC: HO.ACS 13:22
PROVIDERS: PCP Physician Assistant; Visit Provider Internal Medicine Medical Oncology
DX: Z79.01 Long term (current) use of anticoagulants (principal)

== ENCOUNTER → 2025-08-01 13:22 | Outpatient (BNVA) | payer MEDICARE, SELFPAY | PROVIDERS: PCP Physician Assistant; Visit Provider Internal Medicine Medical Oncology | DX: Z51.81 Encounter for therapeutic drug level monitoring (principal); Z79.01 Long term (current) use of anticoagulants | CPT/HCPCS: 85610; 99211 ==

== ENCOUNTER 2025-08-08 20:33 | Emergency (ER) | payer MEDICARE, SELFPAY ==
[2025-08-08] VITALS (7 sets, daily range): BP systolic 121–163; BP diastolic 53–89; PULSE 92–148; RESP 18–26; TEMP 36.1; O2SAT 93–95; BMI 39.9
--- NOTE | 2025-08-08 20:40 | ECG_ITS ---
Test Reason : CP Blood Pressure : */* mmHG Vent. Rate : 138 BPM Atrial Rate : * BPM P-R Int : * ms QRS Dur : 76 ms QT Int : 310 ms P-R-T Axes : * 105 -23 degrees QTcB Int : 469 ms Atrial fibrillation with rapid ventricular response Possible Right ventricular hypertrophy Nonspecific ST and T wave abnormality Abnormal ECG When compared with ECG of 03-Jun-2024 11:29, Afib present Referred By: Generic ED Physician Electronically Signed By: Ramirez Corbett
[2025-08-08 20:57] LABS: MANUAL DIFF FLAG NO
--- NOTE | 2025-08-08 20:58 | ED.CHESTPAIN ---
HPI - Chest Pain General Chief Complaint: Chest Pain Stated Complaint: afib since mid afternoon Time Seen by Provider: 08/08/25 20:54 Source: patient Mode of arrival: ambulatory Limitations: no limitations History of Present Illness ED Provider: Christiano BERMUDEZ HPI narrative: The patient is a 74-year-old female with a history of obesity, hypertension, COPD with chronic FiO2 at home, CHRISTIANO with CPAP, polymyalgia rheumatica, GERD, hyperlipidemia, and paroxysmal atrial fibrillation, on Coumadin. Patient reports since 16:00 today she has been experiencing fluttering heart palpitations consistent with her previous episodes of AFib with a RVR. The patient denies associated chest pain, shortness of breath outside her baseline, or recent sick contacts, fever/chills, nausea, vomiting, or other somatic complaint. The patient reports her last episode of AFib with a RVR requiring hospital evaluation was 4 years ago, at which time she was unable to be cardioverted by her electromechanisms design drafter, was sent home with a plan to retry in 1 week but spontaneously cardioverted while at home at rest. The patient reports she has had intermittent episodes of AFib with a RVR which last less than an hour and often resolve with rest, however today symptoms have been ongoing despite attempted rest and compliance with her amiodarone and diltiazem. Related Data Home Medications ?Medication ?Instructions ?Recorded ?Confirmed cetirizine 10 mg tablet (Allergy 10 mg PO DAILY 11/15/20 08/01/25 Relief (cetirizine)) CANNIBIS PO 10/31/22 08/01/25 denosumab 60 mg/mL subcutaneous 60 mg subcut [id number] 02/05/23 08/01/25 syringe (Prolia) Oxygen Home Use 02/19/23 08/01/25 nebulizers 02/16/24 08/01/25 Previous Rx's ?Medication ?Instructions ?Recorded miscellaneous medical supply #1 ea 01/14/23 (Blood Pressure Cuff) albuterol sulfate 2.5 mg/3 mL 2.5 mg (3 mL) inhalation Q4H 30 08/02/24 (0.083 %) solution for nebulization days #180 mL gabapentin 800 mg tablet 800 mg PO TID #270 tabs 09/01/24 warfarin 5 mg tablet 5 mg PO DAILY 90 days #90 tabs 09/07/24 albuterol sulfate 90 mcg/actuation 2 puff PO Q6H PRN for wheezing 10/04/24 aerosol inhaler #8.5 grams budesonide 0.5 mg/2 mL suspension 0.5 mg (2 mL) inhalation BID #360 10/04/24 for nebulization mL potassium chloride 10 mEq 10 meq PO DAILY 90 days #90 tabs 10/13/24 tablet,extended release(part/cryst) (Klor-Con M) evolocumab 140 mg/mL subcutaneous 140 mg subcut Q2W #6 mL 11/22/24 pen injector (Repatha SureClick) roflumilast 500 mcg tablet 500 mcg PO DAILY 90 days #90 tabs 11/25/24 nystatin 100,000 unit/gram topical 1 appl topical DAILY 4 weeks #60 12/27/24 powder grams baclofen 10 mg tablet 10 mg PO BID 90 days #180 tabs 02/08/25 losartan 25 mg tablet 25 mg PO DAILY #90 tabs 02/08/25 ipratropium bromide 0.02 % 2.5 ml inhalation TID 30 days #275 03/01/25 solution for inhalation mL furosemide 40 mg tablet 40 mg PO BID #180 tabs 04/20/25 cholecalciferol (vitamin D3) 1,250 1,250 mcg PO QWEEK 90 days #13 caps 05/06/25 mcg (50,000 unit) capsule amiodarone 100 mg tablet 100 mg PO DAILY #90 tabs 05/16/25 diltiazem HCl 360 mg 360 mg PO DAILY #90 caps 06/16/25 capsule,extended release 24 hr mupirocin 2 % topical ointment 1 appl topical TID 30 days #22 07/12/25 grams Allergies Allergy/AdvReac Type Severity Reaction Status Date / Time latex (LATEX) Allergy Intermediate RASH Verified 08/08/25 20:39 GUILLERMO Inhibitors Allergy Mild cough Verified 08/08/25 20:39 varenicline (From Chantix) Allergy Mild hives Verified 08/08/25 20:39 rosuvastatin AdvReac Intermediate Muscle Pain Verified 08/08/25 20:39 barium sulfate AdvReac Mild burn on Verified 08/08/25 20:39 face nicotine AdvReac Mild rash Verified 08/08/25 20:39 lisinopril AdvReac cough Verified 08/08/25 20:39 statins Allergy Severe edema Uncoded 08/01/25 13:24 seasonal Allergy Mild seasonal Uncoded 08/01/25 13:24 allergies watermelon rind AdvReac Intermediate Cough Uncoded 08/01/25 13:24 Review of Systems Review of Systems: Yes all other systems are reviewed and are negative [facility] Past Medical History Medical History COPD (chronic obstructive pulmonary disease) Atelectasis Acute and chronic respiratory failure Aortic aneurysm COPD (chronic obstructive pulmonary disease) Arthralgia NICM (nonischemic cardiomyopathy) Hyperlipidemia Arthropathy of cervical spine Cardiomyopathy Paroxysmal A-fib Abdominal pain Chronic respiratory failure CHRISTIANO on CPAP COPD (chronic obstructive pulmonary disease) Surgical History History of esophagogastroduodenoscopy (EGD) Hx of dilation and curettage Hx of cholecystectomy Hx of hysterectomy History of bilateral cataract extraction Trigger finger of thumb Family History Family History Father CHF (congestive heart failure) PNA (pneumonia) Dementia Diabetes HTN (hypertension) Family history of diabetes mellitus Mother CHF (congestive heart failure) MRSA (methicillin resistant Staphylococcus aureus) Son Afib Son Psoriasis Arthritis Psoriatic arthritis Daughter Hypothyroid Fibromyalgia Brother No problems noted. Brother No problems noted. Sister No problems noted. Social History Social History Household Members: Spouse and Children Household Members Other:: Daughter Amy, and Remy Housing: House Do you presently have visiting nurse or other home services: No Alcohol intake: current Alcohol intake frequency: 0-2 drinks per day Alcohol type: hard liquor Patient Tobacco Use Status: Former Tobacco user Years Smoked: 50yrs +/- Smoked in Last 30 Days: No e-Cigarette/Vaping Use: Never Used Second Hand Smoke Exposure: Yes Use of substances other than those prescribed or required for medical reasons: Yes Substance Use Type: Marijuana Advance Directives: No Advance Directives Information Provided: Yes Advance Directives Date on File: 10/27/16 Do you have a plan to hurt others: No Plan service: No Current occupational status: retired Cognitive needs: Yes (walker) Hearing needs: No Vision needs: Yes (glasses) Physical Exam Vital Signs: Vital Signs: Last Vital Signs Temp 97.0 F 08/08/25 20:35 Pulse 92 08/08/25 22:06 Resp 18 08/08/25 21:37 BP 121/53 L 08/08/25 22:06 Pulse Ox 95 08/08/25 21:37 O2 Del Method Nasal Cannula 08/08/25 21:37 O2 Flow Rate 3 08/08/25 21:37 Oxygen Flow Rate 2 08/08/25 20:35 BMI result Body Mass Index 39.9 CONSTITUTIONAL: The patient appears chronically ill, otherwise non-toxic, well nourished and in no acute distress. Vital signs as documented. HEAD: Atraumatic, normocephalic. EYES: EOMs grossly intact, pupils equal, conjunctiva clear, no exudate. ENT: Nares patent, no discharge. Airway patent, no audible stridor, visible mucosa is pink and moist without noted lesions. NECK: Trachea is midline, no obvious masses or gross abnormalities. CHEST: Symmetric movement, normal appearance. LUNGS: LS present and CTAB, no w/r/r. Non-labored work of breathing. CARDIAC: Rapid and irregular Rhythm, S1/S2 appreciated, no murmurs, rubs or gallops. ABDOMEN: Abdomen soft and non-tender x4 quadrants, no palpable masses or organomegaly. : Deferred. EXTREMITIES: Normal tone, moves all extremities spontaneously without reported pain. No obvious acute injury or deformity noted. NEURO: Alert and oriented x3, CN II-XII appear grossly intact. Cerebellar Functioning grossly intact. No obvious sensory or motor deficits. Speech clear and appropriate. PSYCH: normal affect, appropriate eye contact, fluid speech, with appropriate response to questioning. No reported suicidality or homicidality. SKIN: Warm, dry, color appropriate, normal turgor. No rashes noted. Medications Administered Discontinued Medications Generic Name Dose Route Start Last Admin Trade Name Freq PRN Reason Stop Dose Admin Diltiazem HCl 27.175 mg 08/08/25 21:07 08/08/25 21:21 Diltiazem Hcl 50 Mg/10 Ml Vial 0.25 mg/kg (27.175 mg) 08/08/25 21:08 27.175 mg IVPUSH Administration ONCE ONE Diltiazem HCl 37.8 mg 08/08/25 21:51 08/08/25 21:59 Diltiazem Hcl 50 Mg/10 Ml Vial IVPUSH 08/08/25 21:52 37.8 mg ONCE ONE Administration Medical Decision Making Medical Decision Making [facility] Narrative: 9:15 PM 08/08/2025 (Jessica BERMUDEZ): The patient is a 74-year-old female with a history of obesity, hypertension, COPD with chronic FiO2 at home, CHRISTIANO with CPAP, polymyalgia rheumatica, GERD, hyperlipidemia, and paroxysmal atrial fibrillation, on Coumadin. Patient reports since 16:00 today she has been experiencing fluttering heart palpitations consistent with her previous episodes of AFib with a RVR. The patient denies associated chest pain, shortness of breath outside her baseline, or recent sick contacts, fever/chills, nausea, vomiting, or other somatic complaint. The patient reports her last episode of AFib with a RVR requiring hospital evaluation was 4 years ago, at which time she was unable to be cardioverted by her electromechanisms design drafter, was sent home with a plan to retry in 1 week but spontaneously cardioverted while at home at rest. The patient reports she has had intermittent episodes of AFib with a RVR which last less than an hour and often resolve with rest, however today symptoms have been ongoing despite attempted rest and compliance with her amiodarone and diltiazem. In the ED patient is nontoxic appearing, tachycardic but normotensive. The patient's heart is rapid and irregular, no other acute findings. The patient's laboratory evaluation shows mild leukocytosis of 12.4, no anemia, electrolyte abnormality, or significant PRIMITIVO. LFTs are unremarkable. Troponin is negative, BNP unremarkable.. The patient will be treated with 0.25 milligrams/kilogram of diltiazem, and we will monitor for rate control and cardioversion. We will consider 0.35 milligrams/kilogram if unsuccessful. 12:05 AM 08/09/2025 (Jessica BERMUDEZ): After 2 doses of diltiazem, the patient appears to have spontaneously converted to a sinus rhythm with a rate of 88. A 12 lead EKG will be obtained to confirm and when confirm patient will be appropriate for discharge home and outpatient cardiology follow up. Admission/Observation Consideration of admission/observation: Escalation of care including admission/observation considered Lab Data MDM Lab Attestation statement: I reviewed the patient's lab results. 08/08/25 20:51 08/08/25 20:51 Labs: Lab Results 08/08/25 08/08/25 Range/Units 20:51 20:57 WBC 12.4 H (4.8-10.8) X10*3/uL RBC 4.50 (4.20-5.50) X10*6/uL Hgb 14.2 (12.0-16.0) g/dl Hct 43.2 (37.0-47.0) % MCV 96.0 (80.0-98.0) fL MCH 31.6 (27.0-33.0) pg MCHC 32.9 (31.0-35.0) g/dl RDW 13.1 (11.0-16.0) % Plt Count 356 (160-400) X10*3/uL MPV 9.0 L (9.4-12.3) fL Immature Gran % (Auto) 0.5 H (0.0-0.4) % Neut % (Auto) 58.1 (45-73) % Lymph % (Auto) 32.3 (20-40) % Cache % (Auto) 7.4 (2-11) % Eos % (Auto) 1.3 (0-4) % Baso % (Auto) 0.4 (0-2) % Lymph # (Auto) 4.0 (1.2-4.9) X10*3/uL Cache # (Auto) 0.9 (0.1-1.2) X10*3/uL Eos # (Auto) 0.2 (0.0-0.4) X10*3/uL Baso # (Auto) 0.1 (0.0-0.2) X10*3/uL Abs Immat Gran (auto) 0.06 H (0.00-0.03) X10*3/uL Absolute Neuts (auto) 7.2 (2.0-8.3) x10*3/uL Absolute Nucleated RBC 0.000 (0.0-0.012) X10*3/uL Nucleated RBC % (auto) 0.0 (0.0-0.2) /100WBC PT 27.5 H (10.9-12.4) SEC INR 2.4 H (0.9-1.1) VBG pH 7.39 (7.32-7.43) VBG pCO2 53 mmHg VBG pO2 59 mmHg VBG HCO3 32 H (22-26) mmol/L VBG O2 Saturation 82.0 % VBG Base Excess 6.2 mmol/L Sodium 144 (135-145) mmol/L Potassium 3.5 (3.3-5.1) mmol/L Chloride 100 (96-108) mmol/L Carbon Dioxide 29 (22-29) mmol/L Anion Gap 19 (12-20) BUN 21 H (9-16) mg/dL Creatinine 1.36 (0.5-1.4) mg/dL Estim Creat Clear Calc 43.1 Estimated GFR 38 Random Glucose 131 H (60-115) mg/dL Calcium 10.3 H (8.4-10.2) mg/dL Magnesium 1.8 (1.6-2.6) mg/dL Total Bilirubin 0.3 (0.0-1.0) mg/dL AST 25 (5-31) U/L ALT 21 (0-31) U/L Alkaline Phosphatase 100 (39-117) U/L Troponin I High Sens 3.8 (<3.5-17.0) ng/L NT-Pro-B Natriuret Pep 491.3 H (<300) pg/mL Total Protein 7.8 (6.5-8.0) g/dL Albumin 4.5 (3.5-5.0) g/dL Independent Interpretation I performed an independent interpretation of an: EKG (EKG shows atrial fibrillation with a RVR, rate of 138, no evidence of acute ischemia, no ST elevation, no ectopy. QTC 469. Compared to previous on 06/03/2024, AFib and RVR are new.) Interpretation: Repeat EKG at 00:06 hours demonstrates sinus rhythm with a first-degree AV block, no evidence of acute ischemia, no ST elevation, no ectopy. QTC 504. Compared to previous sinus EKG on 06/03/2024 QTC is improved. The first-degree AV block is new, although previous EKG did demonstrate borderline first-degree block with [place] 194. Discharge Plan Discharge Clinical Impression: Paroxysmal A-fib Patient Disposition: Home, Self-Care Instructions: A-fib (Atrial Fibrillation) (ED) Additional Instructions: Thank you for choosing [facility]'s Emergency Department for your care today. Your laboratory evaluation and exam were reassuring, there was no evidence of any damage to your heart as a result of your elevated heart rate from atrial fibrillation. Thankfully following interventions in the ED your heart rate improved and your heart rhythm converted to a normal sinus rhythm. At this time there is no indication for admission to the hospital or continued ED observation, and it is safe to discharge you home. Please continue taking all your regularly prescribed medications as directed. Please follow up with the your electromechanisms design drafter for your scheduled echocardiogram and for discussion regarding this episode of AFib with a RVR. Please also follow up with your primary care physician for re-evaluation, additional management of your symptoms, and continued preventative care. If you do not have a primary care physician, please call the [facility] at [phone] to establish a new primary care physician. While waiting to establish your new primary care physician, you can call our Walk[facility]in [facility] at [phone] for non-emergency needs. Please return to the emergency department if you develop a severe or sudden change in your symptoms, a fever over 100.4 that does not improve with Tylenol or Ibuprofen, recurrent vomiting, or any other new or worsening symptoms or concerns. Prescriptions: No Action albuterol sulfate 2.5 mg /3 mL (0.083 %) solution for nebulization 2.5 mg INHALATION Q4H 30 Days Qty: 180 11RF gabapentin 800 mg tablet 800 mg PO TID Qty: 270 3RF warfarin 5 mg tablet 5 mg PO DAILY 90 Days Qty: 90 3RF Protocol: Dose Management Condition: Friday (Week One) Dose/Route: 5 mg Instruction: 1 x 5 mg tablet Condition: Friday Dose/Route: 2.5 mg Instruction: 0.5 x 5 mg tablets Condition: Friday Dose/Route: 5 mg Instruction: 1 x 5 mg tablet Condition: Friday Dose/Route: 5 mg Instruction: 1 x 5 mg tablet Condition: Dose/Route: 2.5 mg Instruction: 0.5 x 5 mg tablets Condition: Friday Dose/Route: 5 mg Instruction: 1 x 5 mg tablet Condition: Friday Dose/Route: 5 mg Instruction: 1 x 5 mg tablet Condition: Friday (Week Two) Dose/Route: 5 mg Instruction: 1 x 5 mg tablet Condition: Friday Dose/Route: 2.5 mg Instruction: 0.5 x 5 mg tablets Condition: Friday Dose/Route: 5 mg Instruction: 1 x 5 mg tablet Condition: Friday Dose/Route: 5 mg Instruction: 1 x 5 mg tablet Condition: Dose/Route: 2.5 mg Instruction: 0.5 x 5 mg tablets Condition: Friday Dose/Route: 5 mg Instruction: 1 x 5 mg tablet Condition: Friday Dose/Route: 5 mg Instruction: 1 x 5 mg tablet Protocol Text: Adjustment Start Date: Friday08/01/25 INR Value: 2.9 INR Date: 08/01/25 Recheck Date: 08/31/25 albuterol sulfate 90 mcg/actuation HFA aerosol inhaler 2 puff PO Q6H PRN (Reason: for wheezing) Qty: 8.5 0RF budesonide 0.5 mg/2 mL suspension for nebulization 0.5 mg inhalation BID Qty: 360 3RF potassium chloride [Klor-Con M10] 10 mEq tablet,ER particles/crystals 10 meq PO DAILY 90 Days Qty: 90 3RF Repatha SureClick 140 mg/mL pen injector 140 mg subcut Q2W Qty: 6 3RF roflumilast 500 mcg tablet 500 mcg PO DAILY 90 Days Qty: 90 3RF Rx Instructions: pt states taking qod losartan 25 mg tablet 25 mg PO DAILY Qty: 90 3RF baclofen 10 mg tablet 10 mg PO BID 90 Days Qty: 180 2RF ipratropium bromide 0.02 % solution 2.5 ml inhalation TID 30 Days Qty: 275 11RF furosemide 40 mg tablet 40 mg PO BID Qty: 180 3RF cholecalciferol (vitamin D3) 1,250 mcg (50,000 unit) capsule 1,250 mcg PO QWEEK 90 Days Qty: 13 1RF amiodarone 100 mg tablet 100 mg PO DAILY Qty: 90 3RF diltiazem HCl 360 mg capsule,extended release 24hr 360 mg PO DAILY Qty: 90 3RF mupirocin 2 % ointment 1 appl topical TID 30 Days Qty: 22 1RF (DME) Blood Pressure Cuff Misc See Rx Instructions .ROUTE .MEDSUPPLY Qty: 1 0RF Rx Instructions: As directed cetirizine [Allergy Relief (cetirizine)] 10 mg tablet 10 mg PO DAILY Prolia 60 mg/mL syringe 60 mg subcut [id number] CANNIBIS PO Rx Instructions: TAKE 1 GUMMY PO Q AM AND Q PM (DME) Oxygen Home Use Kit See Rx Instructions .Route Rx Instructions: As directed (DME) nebulizers Misc See Rx Instructions .Route Rx Instructions: As directed nystatin 100,000 unit/gram powder 1 appl topical DAILY 28 Days Qty: 60 1RF Referrals: Josue Lewis PA-C [Primary Care Provider, Internal Medicine] Clinical Impression: Paroxysmal A-fib Liang Larios MD [Physician, Cardiology] Clinical Impression: Paroxysmal A-fib Print Language: Latvian
[2025-08-08 21:00] LABS: Venous Blood Gas Refer to POC result
[2025-08-08 21:01] LABS: VBG HCO3 32 mmol/L (22-26); VBG O2 % Saturation 82.0 %
[2025-08-08 21:06] LABS: Hematocrit 43.2 % (37.0-47.0); Hemoglobin 14.2 g/dl (12.0-16.0); Imm Gran Abs Auto 0.06 X10*3/uL (0.00-0.03); Imm Gran Pct Auto 0.5 % (0.0-0.4); Lymphocytes Absolute Auto 4.0 X10*3/uL (1.2-4.9); Mean Corpuscular HGB Conc 32.9 g/dl (31.0-35.0); Mean Corpuscular Hemoglobin 31.6 pg (27.0-33.0); Mean Corpuscular Volume 96.0 fL (80.0-98.0); NRBC Abs Auto 0.000 X10*3/uL (0.0-0.012); NRBC Pct Auto 0.0 /100WBC (0.0-0.2); Platelet Count 356 X10*3/uL (160-400); Red Blood Count 4.50 X10*6/uL (4.20-5.50); White Blood Count 12.4 X10*3/uL (4.8-10.8)
[2025-08-08 21:14] LABS: Alanine Aminotransferase 21 U/L (0-31); Albumin Level 4.5 g/dL (3.5-5.0); Alkaline Phosphatase 100 U/L (39-117); Anion Gap 19 (12-20); Aspartate Amino Transferase 25 U/L (5-31); Blood Urea Nitrogen 21 mg/dL (9-16); Calcium 10.3 mg/dL (8.4-10.2); Carbon Dioxide 29 mmol/L (22-29); Chloride 100 mmol/L (96-108); Creatinine Clr Calc Pharmacy 43.1; Estimated Glomerular Filt Rate 38; Magnesium 1.8 mg/dL (1.6-2.6); Potassium 3.5 mmol/L (3.3-5.1); Sodium 144 mmol/L (135-145); Total Protein 7.8 g/dL (6.5-8.0)
[2025-08-08 21:17] LABS: INTERNATIONAL NORM RATIO 2.4 (0.9-1.1); NT Pro B Type Natriuretic Pept 491.3 pg/mL (<300); Prothrombin Time 27.5 SEC (10.9-12.4)
[2025-08-08 21:18] LABS: Troponin-I High Sensitivity 3.8 ng/L (<3.5-17.0)
--- NOTE | 2025-08-08 21:56 | PC.NURSE ---
PA notified of HR remaining 110s-120s 30 minutes after initial dose of diltiazem given per mar. per PA will order more diltiazem to be given.
--- NOTE | 2025-08-08 23:52 | PC.NURSE ---
patients HR sustaining 90s-low 100s afib on monitor. patient states she still feels flutters in chest but chest pain has resolved since initial dose of cardizem IVP. BP WNL.
--- NOTE | 2025-08-09 00:04 | ECG_ITS ---
Test Reason : RHYTHM CHECK Blood Pressure : */* mmHG Vent. Rate : 85 BPM Atrial Rate : 85 BPM P-R Int : 210 ms QRS Dur : 80 ms QT Int : 424 ms P-R-T Axes : 28 40 31 degrees QTcB Int : 504 ms Sinus rhythm with 1st degree A-V block Prolonged QT Abnormal ECG When compared with ECG of 08-Aug-2025 20:44, Sinus rhythm has replaced Afib Referred By: Christiano Kuo Electronically Signed By: Ramirez Corbett
[2025-08-09 00:55] VITALS: BP 150/68; PULSE 86; RESP 16; TEMP 37; O2SAT 96
== END 2025-08-09 00:55 | disposition home or self-care (01) ==
PROVIDERS: Emergency Provider Emergency Medicine; PCP Physician Assistant
DX: I48.0 Paroxysmal atrial fibrillation (principal); I10 Essential (primary) hypertension; J44.9 Chronic obstructive pulmonary disease, unspecified; G47.33 Obstructive sleep apnea (adult) (pediatric); M35.3 Polymyalgia rheumatica; Z79.01 Long term (current) use of anticoagulants; Z79.899 Other long term (current) drug therapy; Z99.81 Dependence on supplemental oxygen; Z99.89 Dependence on other enabling machines and devices; Z91.040 Latex allergy status; Z88.8 Allergy status to other drugs, medicaments and biological substances
CPT/HCPCS: 36415; 80053; 82803; 83735; 83880; 84484; 85025; 85610; 93005; 96374; 96376; 99285; J1163

== ENCOUNTER → 2025-08-08 20:40 | Outpatient (BNV) | payer MEDICARE, SELFPAY | PROVIDERS: Emergency Provider Emergency Medicine; PCP Physician Assistant; Visit Provider Internal Medicine Cardiovascular Disease | DX: I48.91 Unspecified atrial fibrillation (principal) | CPT/HCPCS: 93010 ==

== ENCOUNTER → 2025-08-09 00:04 | Outpatient (BNV) | payer MEDICARE, SELFPAY | PROVIDERS: Emergency Provider Emergency Medicine; PCP Physician Assistant; Visit Provider Internal Medicine Cardiovascular Disease | DX: I44.0 Atrioventricular block, first degree (principal) | CPT/HCPCS: 93010 ==

== ENCOUNTER 2025-08-15 08:41 | Outpatient (REF) | payer MEDICARE, SELFPAY ==
--- NOTE | ~2025-08-15 | XR_ITS ---
EXAMINATION: XR CHEST CLINICAL INFORMATION: J43.2 - Centrilobular emphysema COMPARISON: 06/03/2024. TECHNIQUE: 2 views of the chest were obtained. FINDINGS: There is mild cardiac enlargement. The mediastinal and hilar contours appear normal. Aortic mural calcifications. There is a prominent epicardial fat pad. Lungs are mildly hyperaerated with flattened hemidiaphragms, and mildly increased fine interstitial markings, consistent with COPD. There is stable mild scarring in both lung bases. Lungs otherwise clear. There is no pneumothorax or pleural effusion. There is no focal osseous or soft tissue abnormality. There are degenerative changes throughout the spine. There are cholecystectomy clips present. XR/XR chest 2V IMPRESSION: 1. Findings consistent with COPD. 2. Mild cardiac enlargement. 3. No active pulmonary disease. Electronically signed by: Christiano Hanley MD 08/15/2025 09:08 AM EDT
--- NOTE | ~2025-08-15 | US_ITS ---
CLINICAL HISTORY: I71.40 - Abdominal aortic aneurysm, without rupture, unspecified US abdominal aorta with duplex and color Doppler Comparison: CT/SR - CT ABDOMEN PELVIS WITH IV CONTRAST - 07/22/23 16:52 EDT Findings: Aorta diameter proximal: 2.5 x 2.7 cm.Focal fusiform aneurysmal dilatation measuring 4.3 x 3.7 cm previously measuring 3.9 x 3.3 cm Aorta diameter mid: 2.1 x 2.2 cm. Aorta diameter distal: 2.1 x 2.2 cm. Right common iliac artery maximum diameter: 1.4 x 1.0 cm. Left common iliac artery maximum diameter: 0.9 x 1.2 cm. Normal color Doppler. Normal spectral Doppler waveforms with peak systolic velocity of 60.2 cm/sec Impression: 1. Focal fusiform aneurysmal dilatation of the proximal abdominal aorta measuring 4.3 x 3.7 cm previously measuring 3.9 x 3.3 cm july 22, 2023 and 3.0 x 3.7 cm August 2020 This document has been electronically signed by: Thierno Rodriguez MD on 08/16/2025 12:04:12
--- NOTE | 2025-08-15 09:40 | CA_ITS ---
Transthoracic Echocardiogram Patient (Last, First, Middle): Huma Mukherjee J Gender: F Date of : 1950 Age: 74 Procedure Date: 08/15/2025 Procedure Type: Transthoracic Echocardiogram Location: OP Height: 162.56 cm Weight: 111.13 kg BSA: 2.13 m2 Heart Rate: 79 bpm BP: 142 / 62 mmHg Waiter Waitress: SB Referring MD: Liang Larios MD Pull Through Hooker: Dion Martinez MD Symptoms: I77.89 - Other specified disorders of arteries and arterioles Study Quality: Technically Difficult ECG Rhythm: Sinus Conclusions: - 1. Technically limited study 2. Mildly reduced LV ejection fraction 45-50% 3. Cardiac valvular Dopplers within normal limits 4. Normal measured RV systolic pressure Findings Procedure Information Contrast agent, definity, is being given per protocol without apparent complications. The quality of the study was technically difficult. The study quality is limited by patients body habitus and lung artifact. Left Ventricle Normal left ventricular cavity size. There is normal left ventricular wall thickness. The left ventricular systolic function is mildly decreased. The visually estimated ejection fraction is between 45-50%. Spectral Doppler is indicative of an impaired relaxation filling pattern. Right Ventricle The right ventricle was not well visualized. Atria The left atrium was not well visualized. Interatrial shunt cannot be excluded. The right atrium was not well visualized. Aortic Valve The aortic valve was not well visualized. There is no aortic valve stenosis. There is no aortic valve regurgitation. Mitral Valve There is mild anterior mitral leaflet thickening. There is trace mitral valve regurgitation. There is no mitral valve stenosis. Pulmonic Valve The pulmonic valve was not well visualized. Tricuspid Valve Likely normal tricuspid valve structure and function. There is mild tricuspid valve regurgitation. The right ventricular systolic pressure is normal. The right ventricular systolic pressure is 33 mmHg. Normal right atrial pressure. There is no evidence of pulmonary hypertension. Great Vessels The aorta was not well visualized. The pulmonary artery was not well visualized. Venous The inferior vena cava is normal in size and collapses greater than 50% with inspiration. Pericardium/Pleural The pericardium was not well visualized. Prior Study Comparison Changes noted compared to prior study dated: 07/05/2020. LV systolic function as measured to be mildly depressed on this study. Overall technical quality of study is limited and could affect calculation due to off axis views Measurements 2D Linear Measurements IVSd: 1.05 0.6-0.9/0.6-1.0 cm LVIDd: 4.59 3.9-5.3/4.2-5.9 cm LVIDd Index: 2.15 2.4-3.2/2.2-3.1 cm/m2 LVIDs: 3.56 2.0-3.6 cm LVPWd: 1.01 0.7-1.1 cm LA Diam: 3.30 2.7-3.8/3.0-4.0 cm LAIDs Index: 1.55 1.5-2.3 cm/m2 LV Mass: 205.27 67-162/88-224 g LV Mass Index: 96.37 43-95/49-115 g/m2 LVOT Diam: 2.30 3.0+(-)1.3 cm 2D Systolic Function EF 4C: 49.90 >55% EF 2C: 42.20 >55% EF BiP: 46.90 >55% Mitral Valve MV Pk E: 1.15 MV PK A: 1.55 MV Decel Time: 211.00 E/A: 0.70 E'Lateral: 6.42 E'Medial: 3.81 E/E' Med: 30.20 E/E' Lat: 17.90 PHT: 62.00 MVA PHT: 3.55 Decel [place]: 5.44 Aortic Valve AoV Pk Ron: 1.12 AoV Pk Grad: 5.00 BORIS: 4.60 LVOT LVOT Pk Ron: 1.15 LVOT Mn Ron: 0.77 LVOT VTI: 0.25 LVOT Pk Grad: 5.00 LVOT Mn Grad: 3.00 LVOT Diam: 2.30 LVOT Area: 4.15 Diastolic Function MV Pk E: 1.15 MV Pk A: 1.55 E/A: 0.70 E'Medial: 3.81 E/E' Med: 30.20 E' Laterial: 6.42 E/E' Lat: 17.90 Right Ventricle TAPSE (mm): 10.20 TVS' Ron: 8.49 Tricuspid Valve TR Pk Ron: 2.74 TR Pk Grad: 30.00 RA Press: 3.00 RVSP: 33.00 Great Vessels Aorta Sinus of Valsalva: 3.00 2.0-3.5 cm Ao Asc: 3.20 2.1-3.4 cm Pulmonary Valve PV Pk Ron: 0.88 Peak PV Grad: 3.00 Updated in Other Vendor System with Status of Final Dion Martinez MD electronically signed on 08/15/2025 12:14:23 PM with status of Final
== END 2025-08-15 08:42 | disposition home or self-care (01) ==
LOC: HO.US 08:41
PROVIDERS: PCP Physician Assistant; Visit Provider Internal Medicine
DX: J43.2 Centrilobular emphysema (principal); I77.89 Other specified disorders of arteries and arterioles; I71.40 Abdominal aortic aneurysm, without rupture, unspecified; I25.10 Atherosclerotic heart disease of native coronary artery without angina pectoris
CPT/HCPCS: 71046; 76706; 93306; Q9957

== ENCOUNTER → 2025-08-15 08:43 | Outpatient (BNV) | payer MEDICARE, SELFPAY | PROVIDERS: PCP Physician Assistant; Visit Provider Radiology Diagnostic Radiology | DX: J43.2 Centrilobular emphysema (principal); I51.7 Cardiomegaly | CPT/HCPCS: 71046 ==

== ENCOUNTER → 2025-08-15 09:40 | Outpatient (BNV) | payer MEDICARE, SELFPAY | PROVIDERS: PCP Physician Assistant; Visit Provider Internal Medicine Cardiovascular Disease | DX: I51.89 Other ill-defined heart diseases (principal) | CPT/HCPCS: 93306 ==

== ENCOUNTER 2025-08-22 13:01 | Outpatient (AMB) | payer MEDICARE, SELFPAY ==
[2025-08-22 13:05] VITALS: BP 122/68; PULSE 87; BMI 41.6
--- NOTE | 2025-08-22 13:05 | MHC.OFFVIS ---
Vital Signs 08/22/25 13:05 Height 5 ft 4 in Weight 242 lb 8.136 oz BMI 41.6 BP 122/68 Blood Pressure Location Lt brachial Position Sitting Pulse 87 Pulse Source Monitor Intake Visit Reasons: ED follow up Allergies latex (LATEX) Allergy (Intermediate, Verified 08/08/25 20:39) RASH GUILLERMO Inhibitors Allergy (Mild, Verified 08/08/25 20:39) cough varenicline (From Chantix) Allergy (Mild, Verified 08/08/25 20:39) hives rosuvastatin Adverse Reaction (Intermediate, Verified 08/08/25 20:39) Muscle Pain barium sulfate Adverse Reaction (Mild, Verified 08/08/25 20:39) burn on face nicotine Adverse Reaction (Mild, Verified 08/08/25 20:39) rash lisinopril Adverse Reaction (Verified 08/08/25 20:39) cough statins Allergy (Severe, Uncoded 08/01/25 13:24) edema seasonal Allergy (Mild, Uncoded 08/01/25 13:24) seasonal allergies watermelon rind Adverse Reaction (Intermediate, Uncoded 08/01/25 13:24) Cough Medication List - Last Reconciled 08/22/25 by Liang Larios MD albuterol sulfate 90 mcg/actuation 2 puffs PO Q6H PRN albuterol sulfate 2.5 mg (3 mL) inhalation Q4H 30 days amiodarone 100 mg PO DAILY baclofen 10 mg PO BID 90 days budesonide 0.5 mg (2 mL) inhalation BID [CANNIBIS TAKE 1 GUMMY PO Q AM AND Q PM ] cetirizine (Allergy Relief (cetirizine)) 10 mg PO DAILY cholecalciferol (vitamin D3) 1,250 mcg PO QWEEK 90 days denosumab (Prolia) 60 mg subcut [id number] diltiazem HCl CD 360 mg PO DAILY evolocumab (Repatha SureClick) 140 mg subcut Q2W furosemide 40 mg PO BID gabapentin 800 mg PO TID ipratropium bromide 2.5 mL inhalation TID 30 days losartan 25 mg PO DAILY miscellaneous medical supply (Blood Pressure Cuff) As directed mupirocin 2% 1 appl topical TID 30 days nebulizers As directed nystatin 1 appl topical DAILY 4 weeks Oxygen Home Use As directed potassium chloride ER (Klor-Con M) 10 mEq PO DAILY 90 days roflumilast 500 mcg PO DAILY 90 days warfarin 5 mg See Protocol PO DAILY 90 days HPI Comments Details: Huma returns for follow-up regarding atrial fibrillation and cardiomyopathy. Chronic shortness of breath related to pulmonary issues, but quite stable recently. She is also on supplemental oxygen. Recently, she came to the emergency room palpitations found to be in atrial fibrillation rapid rate. It seems that she had IV diltiazem and then converted back to normal sinus rhythm. Had no further events. Otherwise, she is feeling just about the same as before. [facility] Medical History COPD (chronic obstructive pulmonary disease) Atelectasis Acute and chronic respiratory failure Aortic aneurysm COPD (chronic obstructive pulmonary disease) Arthralgia NICM (nonischemic cardiomyopathy) Hyperlipidemia Arthropathy of cervical spine Cardiomyopathy Paroxysmal A-fib Abdominal pain Chronic respiratory failure CHRISTIANO on CPAP COPD (chronic obstructive pulmonary disease) Surgical History History of esophagogastroduodenoscopy (EGD) Hx of dilation and curettage Hx of cholecystectomy Hx of hysterectomy History of bilateral cataract extraction Trigger finger of thumb Family History Father CHF (congestive heart failure) PNA (pneumonia) Dementia Diabetes HTN (hypertension) Family history of diabetes mellitus Mother CHF (congestive heart failure) MRSA (methicillin resistant Staphylococcus aureus) Son Afib Son Psoriasis Arthritis Psoriatic arthritis Daughter Hypothyroid Fibromyalgia Brother No problems noted. Brother No problems noted. Sister No problems noted. Social History Household Members: Spouse and Children Household Members Other:: Daughter Amy, and Remy Housing: House Do you presently have visiting nurse or other home services: No Alcohol intake: current Alcohol intake frequency: 0-2 drinks per day Alcohol type: hard liquor Patient Tobacco Use Status: Former Tobacco user Years Smoked: 50yrs +/- e-Cigarette/Vaping Use: Never Used Second Hand Smoke Exposure: Yes Substance Use Type: Marijuana Advance Directives Date on File: 10/27/16 service: No Current occupational status: retired Cognitive needs: Yes (walker) Hearing needs: No Vision needs: Yes (glasses) Review of Systems Const Denies weakness ENT Denies dizziness Card Denies chest pain, Denies chest pain with activity, Denies syncope, Denies rapid heart rate, Denies pedal edema, Denies edema, Denies leg edema, Denies lightheadedness, Denies palpitations, Reports dyspnea, Reports dyspnea on exertion and Denies orthopnea Resp Denies cough, Reports dyspnea and Reports dyspnea on exertion GI Denies hematochezia and Denies change in stool character Musc Denies abnormal gait, Reports myalgias, Denies muscle cramps, Denies muscle weakness, Denies numbness, Denies radiating pain into limb and Denies tingling Neuro Denies abnormal gait, Denies dizziness, Denies syncope, Denies numbness, Denies tingling and Denies weakness Endo Denies palpitations Physical Exam Vital Signs: Last Vital Signs Pulse 87 08/22/25 13:05 BP 122/68 08/22/25 13:05 BMI result Body Mass Index 41.6 Const General: comfortable and no acute distress Orientation/consciousness: patient oriented x3 HEENT Other: Unremarkable Head: Yes normal to inspection Neck Neck: Yes normal visual inspection Chest Chest palpation & inspection: normal inspection of the chest Resp Auscultation: clear to auscultation bilaterally Cardio Palpation: normal PMI Heart sounds: S1 normal heart sound present, S2 normal heart sound present, no gallops, no murmurs and no rubs GI Palpation (GI): Soft to palpation Back/Spine/Pelvis Other: unremarkable Skin General skin exam: no rashes or lesions noted Neuro General: patient oriented x3 Extrem General: Yes normal to inspection Psych Mental Status: mental status grossly normal Office Procedures EKG Details: EKG with sinus rhythm at 87/Min; IN prolongation to 240 millisecond; low-voltage QRS complexes; corrected QT slightly prolonged at 493 milliseconds. [id number], Complete Assessment & Plan Assessment & Plan (1) Paroxysmal A-fib: Code(s): I48.0 - Paroxysmal atrial fibrillation Category: Medical Plan: On low-dose amiodarone and diltiazem. Due to recent episode of atrial fibrillation with rapid rate requiring ER visit, add metoprolol. We can stop the losartan to avoid any hypotension. Check TSH. Previously requested but not yet completed. (2) Encounter for monitoring amiodarone therapy: Code(s): Z51.81 - Encounter for therapeutic drug level monitoring; Z79.899 - Other snf (current) drug therapy Category: Medical Plan: Check TSH. Pulmonary status followed by Dr. Corona. (3) Atherosclerotic cardiovascular disease: Code(s): I25.10 - Atherosclerotic heart disease of [place] coronary artery without angina pectoris Category: Medical Plan: Chest CT scan shows coronary artery calcifications. However, she does not have any angina whatsoever. In 2017, she had perfusion imaging. Suspected artifact or nontransmural infarct with fixed defect at the apical inferior wall and apical anterior septum. She is statin intolerant. She is on Repatha but was not taking regularly because of high costs. She states she is taking them more regularly now. Check lipids. Previously requested but had to be done. (4) NICM (nonischemic cardiomyopathy): Code(s): I42.8 - Other cardiomyopathies Category: Medical Plan: In the most recent echocardiogram, LVEF is 45-50%. Has been up and down. Prior to this, 60-65% and 35-40%. She has got no clinical heart failure symptoms or signs. (5) Ascending aorta enlargement: Code(s): I77.89 - Other specified disorders of arteries and arterioles Category: Medical Plan: CT chest 2020- ascending aortic size 4.3/4 cm. In his subsequent CTA, no description of this. In the most recent echocardiogram, not well visualized. (6) Abdominal aortic aneurysm: Code(s): I71.40 - Abdominal aortic aneurysm, without rupture, unspecified Category: Medical Plan: In the recent abdominal ultrasound, abdominal aorta measures 4.3/3.7 cm increased from previous size. Referred to vascular surgery for evaluation. (7) Stenosis of right carotid artery: Code(s): I65.21 - Occlusion and stenosis of right carotid artery Category: Medical Plan: In the recent carotid ultrasound, possible 50-79% stenosis in the right internal carotid artery. There was also right subclavian stenosis. Discussed patient about this and as above, vascular evaluation. (8) HTN (hypertension): Code(s): I10 - Essential (primary) hypertension Category: Medical Qualifiers: Hypertension type: primary hypertension Qualified Code(s): I10 - Essential (primary) hypertension Plan: As we are adding Metoprolol, hold off on Losartan to avoid any hypotension. Discussed about this today. (9) CHRISTIANO on CPAP: Code(s): G47.33 - Obstructive sleep apnea (adult) (pediatric); Z99.89 - Dependence on other enabling machines and devices Category: Medical Plan: Continue CPAP. Plan Discussion Notes During the consultation, I discussed the management of atrial fibrillation, emphasizing the importance of medication adherence and monitoring for potential side effects of amiodarone. We also reviewed the abdominal aortic aneurysm, noting the need for regular follow-up with a vascular specialist due to the patient's high surgical risk. The carotid artery stenosis was addressed, with a focus on cholesterol management to reduce stroke risk. Patient was informed and verbally consented to the use of an ambient scribe for clinic note documentation during this visit. Total time spent including review of ER records, counseling, documentation, coordination of care-60 minutes. Medications: New metoprolol succinate ER (Toprol XL) 50 mg PO DAILY 90 tabs 1RF Discontinued losartan Discontinued Reason: Doctor's Order 25 mg PO DAILY 90 tabs 3RF I10 - Essential (primary) hypertension Coding Level of Care Code Est Pt Level 5 (93092) Complex EM visit Add On G2211 Diagnoses Paroxysmal A-fib I48.0 Encounter for monitoring amiodarone therapy Z51.81; Z79.899 Atherosclerotic cardiovascular disease I25.10 NICM (nonischemic cardiomyopathy) I42.8 Ascending aorta enlargement I77.89 Abdominal aortic aneurysm I71.40 Stenosis of right carotid artery I65.21 Primary hypertension I10 Hypertension type: primary hypertension CHRISTIANO on CPAP G47.33; Z99.89 CPT Codes EKG - CPT: 08602-[id number], Complete ([id number])
== END 2025-08-22 13:47 | disposition home or self-care (01) ==
LOC: HO.HCS 13:03
PROVIDERS: PCP Physician Assistant; Visit Provider Internal Medicine
DX: I48.0 Paroxysmal atrial fibrillation (principal); Z51.81 Encounter for therapeutic drug level monitoring; Z79.899 Other long term (current) drug therapy; I25.10 Atherosclerotic heart disease of native coronary artery without angina pectoris; I42.8 Other cardiomyopathies; I71.21 Aneurysm of the ascending aorta, without rupture; I71.4 Abdominal aortic aneurysm, without rupture; I65.21 Occlusion and stenosis of right carotid artery; I10 Essential (primary) hypertension; G47.33 Obstructive sleep apnea (adult) (pediatric); Z99.89 Dependence on other enabling machines and devices; I44.0 Atrioventricular block, first degree
CPT/HCPCS: 93010; 99214; G2211

== ENCOUNTER → 2025-08-22 13:01 | Outpatient (BNVA) | payer MEDICARE, SELFPAY | PROVIDERS: PCP Physician Assistant; Visit Provider Internal Medicine | DX: I48.0 Paroxysmal atrial fibrillation (principal); I42.8 Other cardiomyopathies; I77.89 Other specified disorders of arteries and arterioles; Z51.81 Encounter for therapeutic drug level monitoring; Z79.899 Other long term (current) drug therapy; I71.40 Abdominal aortic aneurysm, without rupture, unspecified; I10 Essential (primary) hypertension; Z87.891 Personal history of nicotine dependence; Z99.81 Dependence on supplemental oxygen; Z79.01 Long term (current) use of anticoagulants; G47.33 Obstructive sleep apnea (adult) (pediatric); Z99.89 Dependence on other enabling machines and devices; E66.9 Obesity, unspecified; Z68.41 Body mass index [BMI] 40.0-44.9, adult | CPT/HCPCS: 93005; 99212 ==

== ENCOUNTER 2025-08-29 09:53 | Outpatient (AMB) | payer MEDICARE, SELFPAY ==
[2025-08-29 10:15] LABS: Prothrombin Time Whole Bld POC 33.6 sec (11.1-13.5); ~PT, ~INR - Anti Coag Clinic 2.8 (0.9-1.1)
--- NOTE | 2025-08-29 10:41 | MHC.OFFVISCO ---
Intake Intake Visit Reasons: Anticoagulation Allergies latex (LATEX) Allergy (Intermediate, Verified 08/29/25 10:05) RASH GUILLERMO Inhibitors Allergy (Mild, Verified 08/29/25 10:05) cough varenicline (From Chantix) Allergy (Mild, Verified 08/29/25 10:05) hives rosuvastatin Adverse Reaction (Intermediate, Verified 08/29/25 10:05) Muscle Pain barium sulfate Adverse Reaction (Mild, Verified 08/29/25 10:05) burn on face nicotine Adverse Reaction (Mild, Verified 08/29/25 10:05) rash lisinopril Adverse Reaction (Verified 08/29/25 10:05) cough statins Allergy (Severe, Uncoded 08/29/25 10:05) edema seasonal Allergy (Mild, Uncoded 08/29/25 10:05) seasonal allergies watermelon rind Adverse Reaction (Intermediate, Uncoded 08/29/25 10:05) Cough Medication List - Last Reconciled 08/29/25 by Thi Heredia RN albuterol sulfate 90 mcg/actuation 2 puffs PO Q6H PRN albuterol sulfate 2.5 mg (3 mL) inhalation Q4H 30 days amiodarone 100 mg PO DAILY baclofen 10 mg PO BID 90 days budesonide 0.5 mg (2 mL) inhalation BID [CANNIBIS TAKE 1 GUMMY PO Q AM AND Q PM ] cetirizine (Allergy Relief (cetirizine)) 10 mg PO DAILY cholecalciferol (vitamin D3) 1,250 mcg PO QWEEK 90 days denosumab (Prolia) 60 mg subcut [id number] diltiazem HCl CD 360 mg PO DAILY evolocumab (Repatha SureClick) 140 mg subcut Q2W furosemide 40 mg PO BID gabapentin 800 mg PO TID ipratropium bromide 2.5 mL inhalation TID 30 days metoprolol succinate ER (Toprol XL) 50 mg PO DAILY miscellaneous medical supply (Blood Pressure Cuff) As directed mupirocin 2% 1 appl topical TID 30 days nebulizers As directed nystatin 1 appl topical DAILY 4 weeks Oxygen Home Use As directed potassium chloride ER (Klor-Con M) 10 mEq PO DAILY 90 days roflumilast 500 mcg PO DAILY 90 days warfarin 5 mg PO DAILY Nursing Note INR 2.8 in therapeutic range Medications and supplements reviewed- HAD ADMIT FOR AFIB - ON METOPROLOL NOW No changes in health, diet, supplements, Denies any signs and symptoms of bleeding or bruising or clotting. Bleeding, bruising, clotting discussed Nutritional guidance given Dose: SAME DOSE F/U INR: 1MONTH ON FRI PER DAUGHTER SCHEDULE Patient verbalizes understanding of instructions given Anti-Coag Initial Assessment Social Hx Patient Tobacco Use Status: Former Tobacco user alcohol intake: current Alcohol intake frequency: 0-2 drinks per day Coding Level of Care Code Est Patient Level 1 Diagnoses Current use of anticoagulant therapy Z79.01 Assessment & Plan Assessment & Plan (1) Current use of anticoagulant therapy: Code(s): Z79.01 - prison (current) use of anticoagulants Category: Medical
== END 2025-08-29 10:44 | disposition home or self-care (01) ==
LOC: HO.ACS 09:53
PROVIDERS: PCP Physician Assistant; Visit Provider Internal Medicine Medical Oncology
DX: Z79.01 Long term (current) use of anticoagulants (principal)

== ENCOUNTER → 2025-08-29 09:53 | Outpatient (BNVA) | payer MEDICARE, SELFPAY | PROVIDERS: PCP Physician Assistant; Visit Provider Internal Medicine Medical Oncology | DX: Z51.81 Encounter for therapeutic drug level monitoring (principal); Z79.01 Long term (current) use of anticoagulants; I48.0 Paroxysmal atrial fibrillation | CPT/HCPCS: 85610; 99211 ==

== ENCOUNTER 2025-10-04 14:41 | Outpatient (AMB) | payer MEDICARE, SELFPAY ==
--- NOTE | 2025-10-04 14:58 | MHC.OFFVISCO ---
Intake Intake Visit Reasons: Anticoagulation Allergies latex (LATEX) Allergy (Intermediate, Verified 08/29/25 10:05) RASH GUILLERMO Inhibitors Allergy (Mild, Verified 08/29/25 10:05) cough varenicline (From Chantix) Allergy (Mild, Verified 08/29/25 10:05) hives rosuvastatin Adverse Reaction (Intermediate, Verified 08/29/25 10:05) Muscle Pain barium sulfate Adverse Reaction (Mild, Verified 08/29/25 10:05) burn on face nicotine Adverse Reaction (Mild, Verified 08/29/25 10:05) rash lisinopril Adverse Reaction (Verified 08/29/25 10:05) cough statins Allergy (Severe, Uncoded 08/29/25 10:05) edema seasonal Allergy (Mild, Uncoded 08/29/25 10:05) seasonal allergies watermelon rind Adverse Reaction (Intermediate, Uncoded 08/29/25 10:05) Cough Nursing Note INR: 2.3 in therapeutic range Medications and supplements reviewed No changes in health, diet, medications, or supplements, Denies any signs and symptoms of bleeding or bruising or clotting. Bleeding, bruising, clotting discussed Nutritional guidance given Dose: 2.5mg x 2 days / 5mg x 5 days F/U INR: 1 month Patient verbalizes understanding of instructions given Anti-Coag Initial Assessment Social Hx Patient Tobacco Use Status: Former Tobacco user alcohol intake: current Alcohol intake frequency: 0-2 drinks per day Coding Level of Care Code Est Patient Level 1 Diagnoses Current use of anticoagulant therapy Z79.01 Results AMB INR Fingerstick AMB INR Fingerstick 2.3 Last Edit by Thi Heredia RN on 10/04/25 14:53 manual entry Assessment & Plan Assessment & Plan (1) Current use of anticoagulant therapy: Code(s): Z79.01 - long term care administrator (current) use of anticoagulants Category: Medical
[2025-10-05 08:29] LABS: Prothrombin Time Whole Bld POC 27.9 sec (11.1-13.5); ~PT, ~INR - Anti Coag Clinic 2.3 (0.9-1.1)
== END 2025-10-04 15:02 | disposition home or self-care (01) ==
LOC: HO.ACS 14:41
PROVIDERS: PCP Physician Assistant; Visit Provider Internal Medicine Medical Oncology
DX: Z79.01 Long term (current) use of anticoagulants (principal)

== ENCOUNTER → 2025-10-04 14:41 | Outpatient (BNVA) | payer MEDICARE, SELFPAY | PROVIDERS: PCP Physician Assistant; Visit Provider Internal Medicine Medical Oncology | DX: I48.0 Paroxysmal atrial fibrillation (principal); Z51.81 Encounter for therapeutic drug level monitoring; Z79.01 Long term (current) use of anticoagulants; J41.0 Simple chronic bronchitis; J21.9 Acute bronchiolitis, unspecified; Z99.89 Dependence on other enabling machines and devices; J96.11 Chronic respiratory failure with hypoxia; Z23 Encounter for immunization | CPT/HCPCS: 85610; 90471; 90656; 99211; 99212 ==

== ENCOUNTER 2025-10-04 15:05 | Outpatient (AMB) | payer MEDICARE, SELFPAY ==
[2025-10-04 15:10] VITALS: BP 142/68; PULSE 75; O2SAT 94; BMI 42.0
--- NOTE | 2025-10-04 15:10 | A.OFFVIS_ITS ---
Vital Signs 10/04/25 15:10 Height 5 ft 4 in Weight 244 lb 11.41 oz BMI 42.0 BP 142/68 H Blood Pressure Location Lt brachial Position Sitting Pulse 75 Pulse Source Pulse Oximeter Pulse Oximetry (%) 94 Oxygen Delivery Method Nasal Cannula Oxygen Flow Rate 2 Intake Visit Reasons: COPD Electrodynamicist Required: No Accompanied by: Self / Same As Patient Allergies latex (LATEX) Allergy (Intermediate, Verified 10/04/25 15:13) RASH GUILLERMO Inhibitors Allergy (Mild, Verified 10/04/25 15:13) cough varenicline (From Chantix) Allergy (Mild, Verified 10/04/25 15:13) hives rosuvastatin Adverse Reaction (Intermediate, Verified 10/04/25 15:13) Muscle Pain barium sulfate Adverse Reaction (Mild, Verified 10/04/25 15:13) burn on face nicotine Adverse Reaction (Mild, Verified 10/04/25 15:13) rash lisinopril Adverse Reaction (Verified 10/04/25 15:13) cough statins Allergy (Severe, Uncoded 08/29/25 10:05) edema seasonal Allergy (Mild, Uncoded 08/29/25 10:05) seasonal allergies watermelon rind Adverse Reaction (Intermediate, Uncoded 08/29/25 10:05) Cough HPI Comments Details: The patient is a 74-year-old woman with a known history atrial fibrillation on Eliquis in addition to amiodarone 200 mg which she takes half a tab. Apparently she worsening respiratory symptoms was admitted to [facility] with acute on chronic hypercarbic and hypoxic respiratory failure. The patient has done well though now she is on oxygen. She quit smoking. We did look at the CT scan demonstrating some small areas of ground-glass opacities. However very limited. No evidence of any significant interstitial lung disease. However, we still have to monitor closely the use of the amiodarone. She still tapering down from the prednisone. Currently she is on 3 L nasal cannula. She does have some snoring at nighttime. She does have headaches in the morning. Headaches are better at this time. She has underlying daytime drowsiness. Her [place] score is elevated 12/24. Sometimes she falls asleep at the dining room table. Patient has not a sleep study. Also, she had an echocardiogram demonstrating moderate pulmonary hypertension does also concerned and could be related to untreated sleep apnea. The patient also had pulmonary function studies demonstrating moderate obstructive ventilatory defect consistent with her degree of COPD. We did go for a walking oximetry. RA saturation 93%, desat to 88% with activity. 97% 2L at rest and maintained 95% on 2 Liters with activity. Pt needs to continue using oxygen. Needs a conserving device trial. 02/19/2023 the patient is here for pulmonary follow-up visit. Still complains of her dyspnea on exertion. Also complains that she still needs to be on the oxygen. She wishes to be off the oxygen a bit more. Unfortunately when she takes it off she does get short of breath very quickly. Usually last about 10 minutes. The patient also been having some chest congestion. She was also start Daliresp which has not started as of yet. I will send her prescription to her mail order in order for to started. She also start slowly to develop tolerance. She does continue to use his CPAP every night. CPAP therapy continues to be affecting beneficial. She has an old machine but is working well and I did suggest that she continue using that machine. Her mask is good fitting. 08/22/2023 the patient is here for a pulmonary follow-up visit. Overall the patient has been doing well from a respiratory status. She continues to have dyspnea on exertion mild to moderate severity. But overall better. She does use respiratory medications well. The medications are getting expensive. I did recommend she can decrease the Daliresp to every other day to see if this provides her with the benefits of the medication but does not cause her to go into the donut hole. The patient also had a CT scan of the abdomen. The lung bases are okay although she does have a right kidney lesion that needs to be further addressed with an MRI. She is concerned about this. In regards to the CPAP the CPAP therapy has been very affecting beneficial. She did come and she talk to our staff here and she found a better fitting mask and her machine is now adjusted and she is tolerating a perfect. Her AHI is not 0.4. She does use more than 4 hours a night in the therapy has been affecting beneficial in she will continue to use it at this time. 06/23/2024 the patient is here for a pulmonary follow-up visit. Overall she is doing fairly well. She does complaint of dyspnea on exertion. She has also felt that she has been holding her breath. Sometimes she feels some tension around her chest area. [id number] severity. She did have a chest x-ray which we personally reviewed. She is hyperinflated overall. Although it looks like her left hemidiaphragm is little higher up in does have some atelectasis in that area as well. She was supposed to start pulmonary rehabilitation but she was not able to do so because of scheduling. Therefore, I did provide with the online pulmonary rehabilitation that she can perform. I did ask her to work exercises. Also work on personally breathing. Will plan to repeat the chest x- ray in 3-4 months. If it continues to be abnormal will request a CT scan of the chest. She continues on the CPAP. The CPAP therapy continues to be affecting beneficial. She does use more than 4 hours a night. In addition to that she has been using the Daliresp that has been helpful but every other day because of the adverse effects. She continues with respiratory therapy with good compliance. She continues also using the oxygen. She has a little ulceration of her nares. I will give her additional antimicrobial ointment provide to the little ulceration. She knows to take breaks from the oxygen that will also help with an going to heating process. 09/15/2024 the patient is here for a pulmonary follow-up visit. She is having difficulty with her mask. Sometimes it comes loose and she starts leaking. And then she feels like she is more short of breath. She has gone up on her oxygen because she feels like she is not getting of oxygen. We did download her CPAP though it seems like the APAP is set up perfectly fine her AHI is below 1. She has had issues with air leakage when the mask is not on place. Currently she does like her F30 I mask. Seems to be the better once she has tried. She does have a small wide fitting. I did have a small 1 I would like her to try. If not we can switch her to a different mask but she does like that when particular design. Hopefully with a smaller mask she gets a better seal and she has less air leakage and she can not tolerated. Otherwise she continues with respiratory therapy with good effect. She is still short of breath. Although she does have multifactorial reasons to be short of breath. Makes work on deep breathing exercises. We did look at a chest x-ray that she had back in May demonstrating hypo expansion of the lungs and atelectasis because of the hyperexpansion. The patient does benefit from pulmonary rehabilitation. We had requested a before but it just was not the time. Will put another referral when for pulmonary rehabilitation at this time. 02/16/2025 the patient is here for a pulmonary follow-up visit. Overall she is doing okay. She still has a significant spasms. She continues use albuterol once or twice a day. She understands this could be worsening her spasms and tremulousness. I did go ahead and send her ipratropium for the nebulizer that she can use instead of the albuterol and she can use that along with the budesonide as well. If she does need her rescue inhaler will stick with the albuterol because the ipratropium short-acting beta agonist as expensive for her. The patient continues use her CPAP. CPAP therapy continues to be affectin g beneficial. Although she does complaint of air leakage to the mask that sometimes wakes her up and she is bothered by that. I did download her APAP and it seems like the AHI is 0.6. Therefore I will decrease her maximum pressure from 13-12. Hopefully she will tolerate that well. If she needs made a cut it down further she can always call so I can download her machine again to make sure we can do that adequately. The patient will continue using the baclofen for her significant spasms and will follow-up with her primary care doctor regarding additional blood work evaluation. 10/04/2025 the patient is here for pulmonary follow-up visit. Overall she is doing good. She is using her oxygen with good effect. She also continues with PAP therapy. PAP therapy has been affecting beneficial. She does use a nasal mask and tolerates it well. Her AHI is down to 1.7. She wants to keep the pressure maximum of 12. She likely would need a higher pressure than that but she would like to hold off since she seems to be tolerating this pressure well. She continues use her respiratory nebulizer therapy as prescribed without any issues. Recently she did have AFib with rapid ventricular response since she went to the hospital. There she had a chest x-ray which I personally reviewed demonstrating some slight volume overload status. Heart was cardiac size was big and she also has some evidence of hyperinflation due to COPD. Therefore, she had medication changes from her scalp treatment specialist and seems to be doing a little better from that standpoint. Will continue her on the current respiratory therapy. She will continue with the CPAP in the oxygen. She will follow-up in 4-6 months. She has any issues she can always call further recommendations. [facility] Medical History COPD (chronic obstructive pulmonary disease) Atelectasis Acute and chronic respiratory failure Aortic aneurysm COPD (chronic obstructive pulmonary disease) Arthralgia NICM (nonischemic cardiomyopathy) Hyperlipidemia Arthropathy of cervical spine Cardiomyopathy Paroxysmal A-fib Abdominal pain Chronic respiratory failure CHRISTIANO on CPAP COPD (chronic obstructive pulmonary disease) Surgical History History of esophagogastroduodenoscopy (EGD) Hx of dilation and curettage Hx of cholecystectomy Hx of hysterectomy History of bilateral cataract extraction Trigger finger of thumb Family History Father CHF (congestive heart failure) PNA (pneumonia) Dementia Diabetes HTN (hypertension) Family history of diabetes mellitus Mother CHF (congestive heart failure) MRSA (methicillin resistant Staphylococcus aureus) Son Afib Son Psoriasis Arthritis Psoriatic arthritis Daughter Hypothyroid Fibromyalgia Brother No problems noted. Brother No problems noted. Sister No problems noted. Social History Household Members: Spouse and Children Household Members Other:: Daughter Amy, and Remy Housing: House Do you presently have visiting nurse or other home services: No Alcohol intake: current Alcohol intake frequency: 0-2 drinks per day Alcohol type: hard liquor Patient Tobacco Use Status: Former Tobacco user Years Smoked: 50yrs +/- e-Cigarette/Vaping Use: Never Used Second Hand Smoke Exposure: Yes Substance Use Type: Marijuana Advance Directives Date on File: 10/27/16 service: No Current occupational status: retired Cognitive needs: Yes (walker) Hearing needs: No Vision needs: Yes (glasses) Review of Systems Const Denies chills, Denies fatigue, Denies fever(s), Denies weight gain and Denies weight loss ENT Denies dizziness Card Denies chest pain, Denies leg edema, Denies lightheadedness, Denies palpitations, Reports dyspnea on exertion, Denies orthopnea and Denies other Resp Reports cough and Reports dyspnea on exertion GI Denies hematochezia and Denies change in stool character Musc Denies abnormal gait, Denies muscle weakness, Denies numbness, Denies radiating pain into limb and Denies tingling Neuro Denies abnormal gait, Denies dizziness, Denies numbness, Denies tingling and Reports tremor(s) Endo Denies fatigue and Denies palpitations Physical Exam Vital Signs: Last Vital Signs Pulse 75 10/04/25 15:10 BP 142/68 H 10/04/25 15:10 Pulse Ox 94 10/04/25 15:10 Oxygen Delivery Method Nasal Cannula 10/04/25 15:10 Oxygen Flow Rate 2 10/04/25 15:10 BMI result Body Mass Index 42.0 Const General: comfortable and no acute distress Orientation/consciousness: patient oriented x3 HEENT Other: Unremarkable Head: Yes normal to inspection Neck Neck: Yes normal visual inspection Chest Chest palpation & inspection: normal inspection of the chest Resp Auscultation: diminished lung sounds Cardio Palpation: normal PMI Heart sounds: S1 normal heart sound present, S2 normal heart sound present, no gallops, no murmurs and no rubs GI Palpation (GI): Soft to palpation Back/Spine/Pelvis Other: unremarkable Skin General skin exam: no rashes or lesions noted Neuro General: patient oriented x3 Extrem General: Yes normal to inspection Psych Mental Status: mental status grossly normal Office Procedures Flu Questionnaire Does the patient have a severe egg allergy?: No Does the patient have severe life threatening allergies?: No Does the patient have a fever or illness today?: No Has the patient ever had Guillain-[place] Syndrome?: No Has the patient ever had any past reaction to a flu shot?: No Results AMB INR Fingerstick AMB INR Fingerstick 2.3 Last Edit by Thi Heredia RN on 10/04/25 14:53 manual entry Immunizations Fluarix [id number] (PF) 45 mcg (15 mcg x 3)/0.5 mL IM syringe Performing Provider: Jero Corona MD Performing Location: [facility] [place] Pulmonology Services Administered by: Jero Corona MD on 10/04/25 21:39 Dose Route Admin Location Dispensed Lot Number Expiration Date [facility] Fretted Instrument Repairer 0.5 mL IM Left Deltoid 0.5 mL [id number] 04/25/26 [id number] [employer] VIS Given Date VIS Provided VIS Publication Date 10/04/25 Single Vaccine 24 Eligibility Eligibility Date Funding Source Not [facility] Eligible 10/04/25 Private Assessment & Plan Assessment & Plan (1) COPD (chronic obstructive pulmonary disease): Code(s): J44.9 - Chronic obstructive pulmonary disease, unspecified Category: Medical Qualifiers: COPD type: chronic bronchitis Chronic bronchitis type: simple Qualified Code(s): J41.0 - Simple chronic bronchitis (2) GERD (gastroesophageal reflux disease): Code(s): K21.9 - Gastro-esophageal reflux disease without esophagitis Category: Medical Qualifiers: Esophagitis presence: without esophagitis Qualified Code(s): K21.9 - Gastro-esophageal reflux disease without esophagitis (3) CHRISTIANO on CPAP: Code(s): G47.33 - Obstructive sleep apnea (adult) (pediatric); Z99.89 - Dependence on other enabling machines and devices Category: Medical (4) Chronic respiratory failure: Code(s): J96.10 - Chronic respiratory failure, unspecified whether with hypoxia or hypercapnia Category: Medical Qualifiers: Respiratory failure complication: hypoxia Qualified Code(s): J96.11 - Chronic respiratory failure with hypoxia (5) COPD (chronic obstructive pulmonary disease): Code(s): J44.9 - Chronic obstructive pulmonary disease, unspecified Category: Medical Qualifiers: COPD type: emphysema Emphysema type: centrilobular Qualified Code(s): J43.2 - Centrilobular emphysema Plan continuie budesonide to once day Daliresp 500mcg daily (ok every other day) ipratropium nebs BID WILLIAN as needed continue allergy medicine: zyrtec reflux diet continue PPI continue APAP therapy. AHI .8, continue Amiodarone/CCB F/U 4-6 months Orders: Orders Influenza [id number] Immunization Today Z23 - Encounter for immunization Medications: New ipratropium bromide administer into each nostril 2 sprays intranasal TID PRN 15 mL 6RF allergy symptoms Coding Level of Care Code Est Pt Level 4 (08935) Complex visit Add On G2211 Diagnoses Simple chronic bronchitis J41.0 COPD type: chronic bronchitis Chronic bronchitis type: simple Gastroesophageal reflux disease without esophagitis K21.9 Esophagitis presence: without esophagitis CHRISTIANO on CPAP G47.33; Z99.89 Chronic respiratory failure with hypoxia J96.11 Respiratory failure complication: hypoxia Time Spent (min) 18
== END 2025-10-04 15:49 | disposition home or self-care (01) ==
LOC: HO.HPS 15:06
PROVIDERS: PCP Physician Assistant; Visit Provider Hospitalist
DX: J41.0 Simple chronic bronchitis (principal); K21.9 Gastro-esophageal reflux disease without esophagitis; G47.33 Obstructive sleep apnea (adult) (pediatric); Z99.89 Dependence on other enabling machines and devices; J96.11 Chronic respiratory failure with hypoxia; J43.2 Centrilobular emphysema; Z23 Encounter for immunization
CPT/HCPCS: 99214; G2211

== ENCOUNTER 2025-10-17 08:56 | Outpatient (REF) | payer MEDICARE, SELFPAY ==
[2025-10-17 16:43] LABS: Alanine Aminotransferase 17 U/L (0-31); Albumin Level 4.1 g/dL (3.5-5.0); Alkaline Phosphatase 94 U/L (39-117); Anion Gap 15 (12-20); Aspartate Amino Transferase 22 U/L (5-31); Blood Urea Nitrogen 21 mg/dL (9-16); Calcium 10.4 mg/dL (8.4-10.2); Carbon Dioxide 33 mmol/L (22-29); Chloride 99 mmol/L (96-108); Cholesterol 254 mg/dL (<200); Estimated Glomerular Filt Rate 38; HDL Cholesterol 77 mg/dL (>40); Potassium 4.0 mmol/L (3.3-5.1); Sodium 143 mmol/L (135-145); Total Protein 7.3 g/dL (6.5-8.0); Triglycerides 123 mg/dL (<150)
== END 2025-10-17 08:57 | disposition home or self-care (01) ==
LOC: HO.HMGCLDS 08:56
PROVIDERS: Absent Provider Student in an Organized Health Care Education/Training Program; PCP Physician Assistant; Visit Provider Internal Medicine
DX: M81.0 Age-related osteoporosis without current pathological fracture (principal); E78.5 Hyperlipidemia, unspecified; R94.6 Abnormal results of thyroid function studies
CPT/HCPCS: 36415; 80053; 80061; 82306; 84443